=== PATIENT | female | born 1945 | race Caucasian/White ===

== ENCOUNTER 2017-06-12 08:48 | Day surgery (SDC) | payer MEDICARE ==
[2017-06-08 11:14] VITALS: BMI 36.8
[2017-06-12 09:43] LABS: Glucose,Whole Blood 142 mg/dL (75-99)
[2017-06-12 09:44] VITALS: TEMP 97.9
[2017-06-12] MEDS: LACTATED RINGERS 1,000 ML IV SCH ×2 (09:44→09:56)
[2017-06-12] MEDS ORDERED: LIDOCAINE 1% 20 ML VIAL (10MG/ML) FOR IV START INTRADERMA ONE (09:44)
[2017-06-12] MEDS ORDERED: PROPOFOL 10 MG/ML 20 ML VIAL IV ONE (09:55)
[2017-06-12] MEDS ORDERED: LIDOCAINE 1% INJ 10MG/ML (20 ML MDV) ONE (09:55)
--- NOTE | 2017-06-12 10:25 | P.OP ---
Date of Procedure: 06/12/17 Preoperative Diagnosis: History of polyps Postoperative Diagnosis: CEcal polyp Diverticulosis INternal hemorrhoids Procedure(s) Performed: Colonoscopy with hot snare polypectomy Anesthesia: GETA Pathology: other Description of Procedure: The patient was brought to the endoscopy suite and placed in lateral decubitus position. IV sedation was given as per anesthesia team. A timeout was performed to verify correct patient and correct procedure. Perianal examination did not reveal any external hemorrhoids. Digital rectal examination was performed. External skin tags seen. A well-lubricated endoscope was passed per rectally and was gradually advanced beyond the sigmoid colon, splenic flexure, transverse colon, hepatic flexure and cecum. The ileocecal valve was visualized. A moderate size polyp was removed with the help of a hot snare from the cecum. Then diverticulosis noted without any evidence of diverticulitis. Scope was gradually withdrawn inspecting all the mucosal surfaces. Bowel prep was good. No other polyps or masses noted. Retroflexed in the rectum and large internal hemorrhoid was noted which was not bleeding at this time. The scope was gradually withdrawn. Patient tolerated the procedure well and was taken to post anesthesia care unit in stable condition. Recommend repeat colonoscopy in 5 years
[2017-06-12 10:39] VITALS: BP 138/70; PULSE 68; RESP 18
== END 2017-06-12 10:58 | disposition home or self-care (01) ==
LOC: ORWHC2ENDO 08:48
PROVIDERS: ATTEND Surgery
DX: Z12.11 Encounter for screening for malignant neoplasm of colon (principal); K63.5 Polyp of colon; K57.30 Diverticulosis of large intestine without perforation or abscess without bleeding; K64.8 Other hemorrhoids; Z86.010 Personal history of colon polyps; E78.5 Hyperlipidemia, unspecified; E11.9 Type 2 diabetes mellitus without complications; Z79.84 Long term (current) use of oral hypoglycemic drugs; K75.9 Inflammatory liver disease, unspecified; E07.9 Disorder of thyroid, unspecified; Z79.899 Other long term (current) drug therapy; Z88.5 Allergy status to narcotic agent; Z88.0 Allergy status to penicillin
CPT/HCPCS: 88305; 45385; J2001; J2704

== ENCOUNTER → 2017-06-14 | Outpatient (CLI) | payer MEDICARE ==
--- NOTE | 2017-06-18 10:51 | MM ---
Reason for exam: screening (asymptomatic). Last mammogram was performed 3 years and 3 months ago. History: Patient is postmenopausal. Physical Findings: A clinical breast exam by your physician is recommended on an annual basis and results should be correlated with mammographic findings. MG 3D Screening Mammo W/Cad Bilateral CC and MLO view(s) were taken. Prior study comparison: March 11, 2014, bilateral MG screening mammo w CAD. The breast tissue is almost entirely fat. Finding: There are typically benign round, regional calcifications in the anterior position of the left breast. ASSESSMENT: Benign, BI-RAD 2 RECOMMENDATION: Routine screening mammogram of both breasts in 1 year.
== END | disposition home or self-care (01) ==
LOC: RADMAMWWP 08:41
PROVIDERS: ATTEND Family Medicine
DX: Z12.31 Encounter for screening mammogram for malignant neoplasm of breast (principal); Z80.3 Family history of malignant neoplasm of breast
CPT/HCPCS: 77063; G0202

== ENCOUNTER 2018-03-01 17:37 | Emergency (ER) | payer OTHER, MEDICARE ==
[2018-03-01] MEDS ORDERED: SODIUM CHLORIDE 0.9% 1,000 ML IV STA ×2 (18:54)
[2018-03-01 19:23] LABS: Glucose,Whole Blood 163 mg/dL (75-99)
[2018-03-01 19:26] LABS: Basophils # (A) 0.1 k/uL (0-0.2); Basophils % (A) 0 %; Eosinophils # (A) 0.1 k/uL (0-0.7); Eosinophils % (A) 1 %; HCT 39.7 % (34.0-46.0); HGB 13.9 gm/dL (11.4-16.0); Lymphocytes # (A) 1.4 k/uL (1.0-4.8); Lymphocytes % (A) 12 %; MCH 31.1 pg (25.0-35.0); MCV 88.8 fL (80.0-100.0); Mean Platelet Volume 8.2; Monocytes # (A) 0.8 k/uL (0-1.0); Monocytes % (A) 8 %; Neutrophils # (A) 8.6 k/uL (1.3-7.7); Neutrophils % (A) 77 %; Platelet Count 194 k/uL (150-450); RBC 4.47 m/uL (3.80-5.40); RDW 13.6 % (11.5-15.5); WBC 11.2 k/uL (3.8-10.6)
[2018-03-01 19:35] LABS: ALT 43 U/L (9-52); AST 28 U/L (14-36); Albumin 4.1 g/dL (3.5-5.0); Alcohol <10 mg/dL; Alkaline Phosphatase 78 U/L (38-126); Anion Gap 12 mmol/L; Blood Urea Nitrogen 17 mg/dL (7-17); Calcium 9.6 mg/dL (8.4-10.2); Carbon Dioxide 24 mmol/L (22-30); Chloride 104 mmol/L (98-107); Glucose 145 mg/dL (74-99); Potassium 3.9 mmol/L (3.5-5.1); Sodium 140 mmol/L (137-145); Total Bilirubin 1.6 mg/dL (0.2-1.3); Total Protein 6.4 g/dL (6.3-8.2)
[2018-03-01 19:42] LABS: Partial Thromboplastin Time 22.8 sec (22.0-30.0); Prothrombin Time 9.9 sec (9.0-12.0)
[2018-03-01 19:49] LABS: Creatine Kinase 188 U/L (30-135)
[2018-03-01 20:01] LABS: Troponin I <0.012 ng/mL (0.000-0.034)
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
[2018-03-01] MEDS ORDERED: MORPHINE SULFATE 2 MG/ML SYRINGE IVP STA (21:05)
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
--- NOTE | 2018-03-01 21:35 | XR ---
EXAMINATION TYPE: XR hand complete RT DATE OF EXAM: 03/01/2018 COMPARISON: NONE HISTORY: Pain TECHNIQUE: 3 views FINDINGS: There is minor spurring of the IP joints of the fingers. There is moderate spurring at the first carpometacarpal joint. There is no subluxation. I see no fracture. IMPRESSION: Osteoarthritis. No fracture seen.
--- NOTE | 2018-03-01 21:35 | XR ---
EXAMINATION TYPE: XR knee complete LT DATE OF EXAM: 03/01/2018 COMPARISON: NONE HISTORY: Knee pain TECHNIQUE: 3 views FINDINGS: I see no fracture nor dislocation. There is minor spurring of the medial femoral and tibial condyles. There is no sign of joint effusion. IMPRESSION: Minor degenerative changes. No fracture.
[2018-03-01 21:51] VITALS: PULSE 71; TEMP 97.1
[2018-03-01 21:52] VITALS: BP 181/81; RESP 18
[2018-03-02 13:02] LABS: Hemoglobin A1C 6.8 % (4.0-6.0)
== END 2018-03-01 21:52 | disposition home or self-care (01) ==
LOC: EC 17:37
DX: S60.011A Contusion of right thumb without damage to nail, initial encounter (principal); S80.02XA Contusion of left knee, initial encounter; R94.31 Abnormal electrocardiogram [ECG] [EKG]; R07.89 Other chest pain; R10.9 Unspecified abdominal pain; E78.5 Hyperlipidemia, unspecified; E11.9 Type 2 diabetes mellitus without complications; E07.9 Disorder of thyroid, unspecified; Z79.84 Long term (current) use of oral hypoglycemic drugs; Z79.899 Other long term (current) drug therapy; Z88.0 Allergy status to penicillin; Z88.5 Allergy status to narcotic agent; V43.52XA Car driver injured in collision with other type car in traffic accident, initial encounter; Y92.410 Unspecified street and highway as the place of occurrence of the external cause
CPT/HCPCS: 99285; 96374; 96361 ×2; 36415; 93005; 86900; 86901; 80053; 82550; 82553; 84484; 85025; 85610; 85730; 86850; 80320; 83036; 73130; 73562; 72125; 70450; 71260; 74177; J2270; Q9967

== ENCOUNTER → 2018-06-25 | Outpatient (CLI) | payer MEDICARE ==
--- NOTE | 2018-06-25 11:16 | MM ---
Reason for exam: screening (asymptomatic). Last mammogram was performed 1 year ago. History: Patient is postmenopausal. Physical Findings: A clinical breast exam by your physician is recommended on an annual basis and results should be correlated with mammographic findings. MG 3D Screening Mammo W/Cad Bilateral CC and MLO view(s) were taken. Prior study comparison: June 14, 2017, bilateral MG 3d screening mammo w/cad. March 11, 2014, bilateral MG screening mammo w CAD. There are scattered fibroglandular densities. No significant changes when compared with prior studies. ASSESSMENT: Benign, BI-RAD 2 RECOMMENDATION: Routine screening mammogram of both breasts in 1 year.
== END | disposition home or self-care (01) ==
LOC: RADMAMWWP 07:09
PROVIDERS: ATTEND Family Medicine
DX: Z12.31 Encounter for screening mammogram for malignant neoplasm of breast (principal)
CPT/HCPCS: 77063; 77067

== ENCOUNTER → 2019-08-01 | Outpatient (CLI) | payer MEDICARE ==
--- NOTE | 2019-08-05 08:46 | MM ---
Reason for exam: screening (asymptomatic). Last mammogram was performed 1 year and 1 month ago. History: Patient is postmenopausal. Physical Findings: A clinical breast exam by your physician is recommended on an annual basis and results should be correlated with mammographic findings. MG 3D Screening Mammo W/Cad Bilateral CC and MLO view(s) were taken. Prior study comparison: June 25, 2018, bilateral MG 3d screening mammo w/cad. June 14, 2017, bilateral MG 3d screening mammo w/cad. There are scattered fibroglandular densities. No significant changes when compared with prior studies. ASSESSMENT: Negative, BI-RAD 1 RECOMMENDATION: Routine screening mammogram of both breasts in 1 year.
== END | disposition home or self-care (01) ==
LOC: RADMAMWWP 09:15
PROVIDERS: ATTEND Family Medicine
DX: Z12.31 Encounter for screening mammogram for malignant neoplasm of breast (principal)
CPT/HCPCS: 77063; 77067

== ENCOUNTER 2021-08-04 12:03 | Inpatient (IN) | payer MEDICARE ==
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
[2021-08-04] MEDS ORDERED: DEXAMETHASONE SOD PHOSPHATE 10 MG/ML 1 ML VIAL IVP STA (13:53)
--- NOTE | 2021-08-04 13:55 | XR ---
EXAMINATION TYPE: XR chest 1V portable DATE OF EXAM: 08/04/2021 COMPARISON: CT chest March 01, 2018 HISTORY: Dyspnea. TECHNIQUE: Single AP portable frontal upright view of the chest is obtained. FINDINGS: There are new bilateral multifocal opacities. Somewhat low lung volumes. The cardiac silh ouette size is likely within normal limits. Silhouetting left heart border noted. The osseous struc tures are intact. IMPRESSION: New bilateral multifocal opacities consistent with covid-19 infection in the current med ica environment. Correlate clinically.
[2021-08-04 14:05] LABS: Basophils # (A) 0.2 k/uL (0-0.2); Basophils % (A) 1 %; Eosinophils % (A) 0 %; HCT 41.8 % (34.0-46.0); HGB 13.9 gm/dL (11.4-16.0); Lymphocytes # (A) 0.5 k/uL (1.0-4.8); Lymphocytes % (A) 3 %; MCH 30.6 pg (25.0-35.0); MCHC 33.3 g/dL (31.0-37.0); MCV 91.8 fL (80.0-100.0); Mean Platelet Volume 9.1; Monocytes # (A) 0.6 k/uL (0-1.0); Monocytes % (A) 3 %; Neutrophils # (A) 16.4 k/uL (1.3-7.7); Neutrophils % (A) 90 %; Platelet Count 150 k/uL (150-450); RBC 4.56 m/uL (3.80-5.40); RDW 13.3 % (11.5-15.5); WBC 18.2 k/uL (3.8-10.6)
[2021-08-04 14:22] LABS: Albumin 3.2 g/dL (3.5-5.0); Calcium 8.6 mg/dL (8.4-10.2); Magnesium 1.8 mg/dL (1.6-2.3); Potassium 3.9 mmol/L (3.5-5.1); Total Bilirubin 0.9 mg/dL (0.2-1.3); Total Protein 6.1 g/dL (6.3-8.2)
[2021-08-04 14:25] LABS: INR 0.9 (<1.2); Partial Thromboplastin Time 22.1 sec (22.0-30.0); Prothrombin Time 9.9 sec (9.0-12.0)
[2021-08-04 14:36] LABS: C Reactive Protein 16.3 mg/dL (<1.0)
[2021-08-04] MEDS ORDERED: SODIUM CHLORIDE 0.9% 1,000 ML IV ONE (14:40)
[2021-08-04] MEDS ORDERED: INSULIN REGULAR 100 UNIT/ML VIAL (IM/SQ) SQ STA (14:41)
[2021-08-04 18:39] LABS: Glucose,Whole Blood 227 mg/dL (75-99)
[2021-08-04] MEDS: SODIUM CHLORIDE 0.9% 1,000 ML IV SCH (20:09)
[2021-08-04 20:15] LABS: Glucose,Whole Blood 273 mg/dL (75-99)
[2021-08-04] MEDS: INSULIN ASPART (NovoLOG) 100 UNIT/ML VIAL SQ SCH (20:17)
[2021-08-04 21:00] LABS: Appearance,Urine Clear (Clear); Bilirubin,Urine Negative (Negative); Blood,Urine Moderate (Negative); Color,Urine Yellow; Glucose,Urine (UA) Trace (Negative); Hyaline Casts,Urine 1 /lpf (0-2); Ketones,Urine Negative (Negative); Leukocyte Esterase,Urine Negative (Negative); Mucus,Urine Rare /hpf; Nitrite,Urine Negative (Negative); Protein,Urine 2+ (Negative); RBC,Urine 1 /hpf (0-5); Specific Gravity,Urine 1.019 (1.001-1.035); Squamous Epithelial Cell,Urine <1 /hpf (0-4); Urobilinogen,Urine <2.0 mg/dL (<2.0); WBC,Urine 1 /hpf (0-5)
[2021-08-05 01:16] LABS: Glucose,Whole Blood 246 mg/dL (75-99)
[2021-08-05] MEDS: INSULIN ASPART (NovoLOG) 100 UNIT/ML VIAL SQ SCH ×3 (01:19→15:33)
[2021-08-05] MEDS: SODIUM CHLORIDE 0.9% 1,000 ML IV SCH ×2 (01:20→15:34)
[2021-08-05 05:02] LABS: Basophils # (A) 0.2 k/uL (0-0.2); Basophils % (A) 1 %; Eosinophils % (A) 0 %; HCT 40.6 % (34.0-46.0); HGB 13.7 gm/dL (11.4-16.0); Lymphocytes # (A) 0.6 k/uL (1.0-4.8); Lymphocytes % (A) 4 %; MCH 30.8 pg (25.0-35.0); MCHC 33.7 g/dL (31.0-37.0); MCV 91.4 fL (80.0-100.0); Monocytes # (A) 0.5 k/uL (0-1.0); Monocytes % (A) 3 %; Neutrophils # (A) 15.2 k/uL (1.3-7.7); Neutrophils % (A) 89 %; Platelet Count 133 k/uL (150-450); RBC 4.44 m/uL (3.80-5.40); RDW 13.2 % (11.5-15.5)
[2021-08-05 05:21] LABS: ALT 74 U/L (4-34); AST 122 U/L (14-36); African American GFR (CKD) >90 (>60 ml/min/1.73 sqM); Albumin 2.9 g/dL (3.5-5.0); Alkaline Phosphatase 83 U/L (38-126); Anion Gap 9 mmol/L; Blood Urea Nitrogen 18 mg/dL (7-17); Calcium 8.3 mg/dL (8.4-10.2); Carbon Dioxide 24 mmol/L (22-30); Chloride 100 mmol/L (98-107); Glucose 222 mg/dL (74-99); Non-African American GFR(CKD) 90 (>60 ml/min/1.73 sqM); Sodium 133 mmol/L (137-145); Total Bilirubin 0.8 mg/dL (0.2-1.3); Total Protein 5.7 g/dL (6.3-8.2)
--- NOTE | 2021-08-05 08:17 | XR ---
EXAMINATION TYPE: XR chest 1V DATE OF EXAM: 08/05/2021 COMPARISON: Chest x-ray 08/04/2021 HISTORY: Covid pneumonia TECHNIQUE: Single frontal view of the chest is obtained. FINDINGS: There is elevation of right hemidiaphragm. Cardiac mediastinal silhouette is likely stable . Bilateral airspace disease is noted. No evident pneumothorax or pleural effusion. There is thoracic spondylosis. There are overlying artifacts. IMPRESSION: Correlate for pneumonia
[2021-08-05] MEDS: DEXAMETHASONE SOD PHOSPHATE 10 MG/ML 1 ML VIAL IVP SCH (08:20)
[2021-08-05] MEDS: ENOXAPARIN 40 MG/0.4 ML SYRINGE SQ SCH (08:20)
[2021-08-05] MEDS: LEVOTHYROXINE IVP 100 MCG/5 ML VIAL IV SCH (08:20)
[2021-08-05 08:42] LABS: Glucose,Whole Blood 166 mg/dL (75-99)
[2021-08-05] MEDS: ASCORBIC ACID 500 MG TAB PO SCH (08:52)
[2021-08-05] MEDS: CHOLECALCIFEROL 125 MCG (5000 IU) TABLET PO SCH (08:52)
[2021-08-05] MEDS: ZINC SULFATE 220 MG CAP PO SCH (08:52)
[2021-08-05 11:58] LABS: Glucose,Whole Blood 146 mg/dL (75-99)
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
[2021-08-05 13:21] LABS: C Reactive Protein 15.9 mg/dL (<1.0)
--- NOTE | 2021-08-05 14:05 | CDI ---
Documentation Clarification Form Date: 08/05/2021 01:40:28 PM From: Yadi Thomas RN CCDS Admit Date: 08/04/2021 03:17:00 PM Patient Name: Malinda Patel Visit Number: [id number] Discharge Date: ATTENTION: The Clinical Documentation Specialists (CDI) and [facility] Coding Staff appreciate your assistance in clarifying documentation. Please respond to the clarification below the line at the bottom and electronically sign. The CDI & [facility] Coding staff will review the response and follow-up if needed. Please note: Queries are made part of the Legal Health Record. If you have any questions, please contact the author of this message via ITS. Dr. Jorge Celis Hypoxia is document 08/05, H&P. Is there an additional diagnosis that is clinically appropriate for this patient? History/Risk Factors: 76-year-old female presents to the ED for the cough, congestion, dyspnea, and fatigue for several weeks. Medical History: DM, HLD and Thyroid disorder. H&P, 08/05. Clinical Indicators: Vital signs: 08/04 13:27 B/P 113/64, HR 82, RR 22, SpO2 66% ra Pulse oximetry: 08/04 13:39 RR 32 SpO2 86% 15L Non-rebreather ; 08/04 20:00 RR 32; SpO2 90% 100% BiPAP Lung/Breathing assessment: H&P 08/05 Breath sounds coarse bilaterally with questionable rhonchi at the bases. Treatment: 08/05 to current Decadron 6mg IVP Daily. 08/04 6L nasal cannula; 08/04 15L Non-rebreather; 08/04 to current 100% BiPAP. Is there an additional diagnosis that is clinically appropriate for this patient? [X ] Acute Hypoxic Respiratory Failure (pO2 <60 mm Hg or SpO2 <91% on room air) [ ] Other Diagnosis, please specify [ ] Unable to determine (Template Last Revised: November 2020) MTDD
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
[2021-08-05] MEDS: BARICITINIB 2 MG TABLET PO SCH (15:24)
[2021-08-05 17:52] LABS: Glucose,Whole Blood 286 mg/dL (75-99)
[2021-08-05] MEDS ORDERED: INSULIN REGULAR BOLUS (FROM DRIP BAG) IV PRN (18:08)
[2021-08-05] MEDS ORDERED: INSULIN REGULAR 100 UNIT in SODIUM CHLORIDE 0.9% 100 ML IV SCH (18:30)
[2021-08-05 19:28] LABS: Glucose,Whole Blood 302 mg/dL (75-99)
[2021-08-05 19:55] LABS: Allen Test Performed? Yes
[2021-08-05 19:56] LABS: ABG HCO3 25 mmol/L (21-25); ABG Oxygen Saturation 84.3 % (94-97); ABG PCO2 31 mmHg (35-45); ABG PH 7.51 (7.35-7.45); ABG TCO2 26 mmol/L (19-24)
[2021-08-05 19:57] LABS: ABG PO2 45 mmHg (83-108)
[2021-08-05] MEDS ORDERED: propofoL 100 ML IV ONE (20:00)
--- NOTE | 2021-08-05 20:55 | XR ---
EXAMINATION TYPE: XR chest 1V portable DATE OF EXAM: 08/05/2021 COMPARISON: Today HISTORY: Short of breath. Tube placement. TECHNIQUE: Single view FINDINGS: Endotracheal tube with 8 mm from the kay. There is pulmonary interstitial and airspace e nelli. There are chest leads. There is nasogastric tube in the stomach. IMPRESSION: Endotracheal tube is low. There is pulmonary edema slightly worse than exam this morning.
[2021-08-05] MEDS ORDERED: INSULIN ASPART (NovoLOG) 100 UNIT/ML VIAL SQ SCH (21:00)
[2021-08-05] MEDS: CISATRACURIUM 200 MG in SODIUM CHLORIDE 0.9% 180 ML IV SCH (21:01)
[2021-08-05] MEDS ORDERED: CISATRACURIUM 2 MG/ML 5 ML VIAL IV ONE ×2 (21:07→21:21)
[2021-08-05 21:16] LABS: Glucose,Whole Blood 149 mg/dL (75-99)
[2021-08-05] MEDS: CHLORHEXIDINE GLUCONATE 15 ML CUP MUCOUS MEM SCH (21:44)
[2021-08-05 21:49] LABS: ABG Base Excess 1.5 mmol/L; ABG HCO3 26 mmol/L (21-25); ABG Oxygen Saturation 89.7 % (94-97); ABG PCO2 40 mmHg (35-45); ABG PH 7.42 (7.35-7.45); ABG TCO2 27 mmol/L (19-24); Allen Test Performed? Yes
[2021-08-05 21:51] LABS: ABG PO2 58 mmHg (83-108)
[2021-08-05 21:58] LABS: Glucose,Whole Blood 129 mg/dL (75-99)
[2021-08-05 22:41] LABS: Glucose,Whole Blood 141 mg/dL (75-99)
[2021-08-05 23:06] LABS: Glucose,Whole Blood 143 mg/dL (75-99)
[2021-08-05] MEDS: ALBUTEROL HFA INHALER INHALATION SCH (23:27)
[2021-08-06] MEDS ORDERED: IPRATROPIUM-ALBUTEROL 3 ML NEB INHALATION SCH
[2021-08-06 00:01] LABS: Glucose,Whole Blood 153 mg/dL (75-99)
[2021-08-06 00:56] LABS: Glucose,Whole Blood 171 mg/dL (75-99)
[2021-08-06 01:59] LABS: Glucose,Whole Blood 155 mg/dL (75-99)
[2021-08-06 03:04] LABS: Glucose,Whole Blood 170 mg/dL (75-99)
[2021-08-06] MEDS: ALBUTEROL HFA INHALER INHALATION SCH ×6 (03:29→23:31)
[2021-08-06] MEDS ORDERED: ARTIFICIAL TEARS-HYPROMELLOSE DROPS 15 ML BTL BOTH EYES PRN (03:53)
[2021-08-06 04:02] LABS: Glucose,Whole Blood 163 mg/dL (75-99)
[2021-08-06] MEDS: SODIUM CHLORIDE 0.9% 1,000 ML IV SCH ×2 (04:13→16:26)
[2021-08-06 05:03] LABS: Glucose,Whole Blood 164 mg/dL (75-99)
[2021-08-06 05:57] LABS: Basophils # (A) 0.1 k/uL (0-0.2); Basophils % (A) 1 %; Eosinophils % (A) 0 %; HCT 35.1 % (34.0-46.0); HGB 12.3 gm/dL (11.4-16.0); Lymphocytes # (A) 0.5 k/uL (1.0-4.8); Lymphocytes % (A) 3 %; MCH 31.7 pg (25.0-35.0); MCV 90.6 fL (80.0-100.0); Mean Platelet Volume 9.1; Monocytes # (A) 0.5 k/uL (0-1.0); Monocytes % (A) 3 %; Neutrophils % (A) 91 %; Platelet Count 113 k/uL (150-450); RBC 3.88 m/uL (3.80-5.40); RDW 13.8 % (11.5-15.5); WBC 15.4 k/uL (3.8-10.6)
[2021-08-06 06:01] LABS: Glucose,Whole Blood 149 mg/dL (75-99)
[2021-08-06 06:24] LABS: Calcium 7.6 mg/dL (8.4-10.2); Potassium 4.1 mmol/L (3.5-5.1)
[2021-08-06 06:28] LABS: ABG Base Excess 0.6 mmol/L; ABG HCO3 25 mmol/L (21-25); ABG Oxygen Saturation 96.9 % (94-97); ABG PCO2 40 mmHg (35-45); ABG PH 7.41 (7.35-7.45); ABG PO2 78 mmHg (83-108); Allen Test Performed? Yes
[2021-08-06 07:06] LABS: Glucose,Whole Blood 140 mg/dL (75-99)
--- NOTE | 2021-08-06 07:49 | XR ---
EXAMINATION TYPE: XR chest 1V portable DATE OF EXAM: 08/06/2021 CLINICAL HISTORY: Difficulty breathing progress study. TECHNIQUE: Single AP portable semiupright view of the chest is obtained. COMPARISON: Chest x-ray from one day earlier and older studies FINDINGS: Stable endotracheal and orogastric tubes. Improved inspiration on current study. There are persistent bilateral multifocal and confluent reticu lonodular opacities with improved aeration in the right midlung. Improved aeration in the lingula as there is now visualized left heart border. The cardiac silhouette size is within normal limits. The o sseous structures are intact. IMPRESSION: Bilateral multifocal and confluent opacities consistent with covid-19 infection redemons trated. Improved aeration in the lingula and right mid lung suggests improving covid-19 infiltrates.
[2021-08-06 07:53] LABS: Glucose,Whole Blood 135 mg/dL (75-99)
[2021-08-06] MEDS: ASCORBIC ACID 500 MG TAB PO SCH (08:26)
[2021-08-06] MEDS: CHOLECALCIFEROL 125 MCG (5000 IU) TABLET PO SCH (08:26)
[2021-08-06] MEDS: ENOXAPARIN 40 MG/0.4 ML SYRINGE SQ SCH (08:26)
[2021-08-06] MEDS: LEVOTHYROXINE IVP 100 MCG/5 ML VIAL IV SCH (08:26)
[2021-08-06] MEDS: CHLORHEXIDINE GLUCONATE 15 ML CUP MUCOUS MEM SCH ×2 (08:26→19:55)
[2021-08-06] MEDS: ZINC SULFATE 220 MG CAP PO SCH (08:26)
[2021-08-06] MEDS: BARICITINIB 2 MG TABLET PO SCH (08:27)
[2021-08-06] MEDS: DEXAMETHASONE SOD PHOSPHATE 10 MG/ML 1 ML VIAL IVP SCH (08:27)
[2021-08-06] MEDS ORDERED: SODIUM CHLORIDE 0.9% 1,000 ML IV ONE (09:00)
[2021-08-06] MEDS ORDERED: INSULIN ASPART (NovoLOG) 100 UNIT/ML VIAL SQ SCH (10:00)
--- NOTE | 2021-08-06 10:06 | P.PN ---
Subjective Progress Note Date: 08/06/21 Principal diagnosis: Shortness of breath This is a 76-year-old female seen in the emergency room, on August 04. She came in with complaints of shortness of breath and difficulty breathing. In addition, she had cough, chest congestion, generalized weakness, lightheadedness, his been sick for about a month or so. She apparently tested positive for coronavirus on July 30. Currently, she is on BiPAP, with settings of 15/5 and 100%. She's getting saline at 80 mL an hour. She has a history of hyperlipidemia, diabetes, hypertension, and hypothyroidism. White count 17, hemoglobin 13.7, hematocrit 40.6, and platelet count 133,000. D-dimer was 0.97. Sodium 133, potassium 4, chlorides 100, CO2 24, anion gap 9, BUN 18, creatinine 0.6. LDH was 1477 and C-reactive protein was 15.9. Chest x-ray showed elevation of the right diaphragm, and diffuse bilateral airspace disease consistent with coronavirus pneumonia. On today's evaluation on 08/06/2021 patient is seen in the intensive care unit. Patient was admitted on 08/04/2021 with symptoms of COVID-19 ammonia that have been present for about a month's, patient had a positive home test on 07/30/2021. Patient's hypoxia and dyspnea has significantly progressed, and intubated on 08/05/2021. While she is sedated and intubated on assist control mode of ventilation with a rate of 26, tidal volume is 400, FiO2 of 90% and PEEP of 15, this morning's blood gas shows pO2 of 78, pCO2 of 40, and pH of 7.41. This was done on FiO2 of 100% and FiO2 had since been dropped down to 90%. Patient is maintaining O2 saturations between 96-98%. Peak airway pressure is 34, plateau pressure is 31. Currently on 0.9 at 80 ML per hour, Diprivan is at 30 mics per kilo per minute, Nimbex is at 2 mics per kilo per minute. Today's chest x-ray shows bilateral multifocal and confluent opacities consistent with COVID-19 pneumonia. Today's labs have been reviewed, white blood cell count is improving and is down to 15.4, hemoglobin is 12.3, serum sodium is improved and is up to 135 compared to 129 on admission, potassium is 4.1, BUN is 21 creatinine is 0.78 yesterday's LFTs have been reviewed and AST was 122, ALT is 74, applying phosphatases 83, LDH was 1477, and CRP was 15.9 proBNP was within normal limits at 181 bronchial [place] level was 0.48, borderline, sputum cultures have been sent and showed few PMNs, many gram-negative diplococci. Final culture is pending. Blood culturef show no growth thus far. No dyn amically patient is slightly bradycardic in the sinus mechanism with a rate of 51, blood pressure is 102/57, she was slightly hypotensive she was given a liter bolus this morning, she is getting another liter bolus infusing right now for low urine output. Patient is currently receiving Decadron 6 mg daily, she is on Baricitinib, Lovenox 40 mg daily, and COVID-19 vitamins. Last d-dimer from yesterday was 0.97. Objective - Vital Signs Vital signs: Vital Signs Temp 97.4 F L 08/06/21 08:00 Pulse 53 L 08/06/21 09:00 Resp 26 H 08/06/21 09:00 BP 85/51 08/06/21 09:00 Pulse Ox 93 L 08/06/21 08:00 Intake & Output 08/05/21 08/06/21 08/06/21 18:59 06:59 18:59 Intake Total 1210 1105.880 389.074 Output Total 340 400 80 Balance 870 705.880 309.074 Weight 92.4 kg Intake: IV 960 960 240 Sodium Chloride 0.9% 1, 960 960 240 000 ml @ 80 mls/hr IV . [id number] [facility] Rx#:[id number] Intake, IV Titration 145.880 49.074 Amount Insulin Regular 100 unit 48.262 2.828 In Sodium Chloride 0.9% 100 ml @ Per Protocol IV .Q0M [facility] Rx#:[id number] propofoL 1,000 mg In 97.618 46.246 Empty Bag 1 bag @ Titrate IV .Q0M [facility] Rx#: [id number] Tube Feeding 20 Blood Product 250 Other 80 Output: Urine 340 400 80 Other: Voiding Method Indwelling Catheter Indwelling Catheter Indwelling Catheter - Exam GENERAL EXAM: Intubated, sedated, and paralyzed, 76-year-old female on assist- control mode of ventilation with FiO2 of 90% and PEEP of 15 comfortable in no apparent distress. HEAD: Normocephalic/atraumatic. EYES: Normal reaction of pupils, equal size. Conjunctiva pink, sclera white. NOSE: Clear with pink turbinates. THROAT: No erythema or exudates. NECK: No masses, no JVD, no thyroid enlargement, no adenopathy. CHEST: No chest wall deformity. Symmetrical expansion. LUNGS: Equal air entry with no crackles, wheeze, rhonchi or dullness. CVS: Regular rate and rhythm, normal S1 and S2, no gallops, no murmurs, no rubs ABDOMEN: Soft, nontender. No hepatosplenomegaly, normal bowel sounds, no guarding or rigidity. EXTREMITIES: No clubbing, no edema, no cyanosis, 2+ pulses and upper and lower extremities. MUSCULOSKELETAL: Muscle strength and tone normal. SPINE: No scoliosis or deformity SKIN: No rashes CENTRAL NERVOUS SYSTEM: Sedated, and paralyzed No focal deficits, tone is normal in all 4 extremities. - Labs CBC & Chem 7: 08/06/21 05:46 08/06/21 05:46 Labs: Abnormal Lab Results - Last 24 Hours (Table) 08/05/21 08/05/21 08/05/21 Range/Units 11:55 11:55 11:57 WBC (3.8-10.6) k/uL Plt Count (150-450) k/uL Neutrophils # (1.3-7.7) k/uL Lymphocytes # (1.0-4.8) k/uL D-Dimer 0.97 H (<0.60) mg/L FEU ABG pH (7.35-7.45) ABG pCO2 (35-45) mmHg ABG pO2 (83-108) mmHg ABG HCO3 (21-25) mmol/L ABG Total CO2 (19-24) mmol/L ABG O2 Saturation (94-97) % Sodium (137-145) mmol/L BUN (7-17) mg/dL Glucose (74-99) mg/dL POC Glucose (mg/dL) 146 H (75-99) mg/dL Calcium (8.4-10.2) mg/dL Lactate Dehydrogenase 1477 H (313-618) U/L C-Reactive Protein 15.9 H (<1.0) mg/dL 08/05/21 08/05/21 08/05/21 Range/Units 17:50 19:27 19:49 WBC (3.8-10.6) k/uL Plt Count (150-450) k/uL Neutrophils # (1.3-7.7) k/uL Lymphocytes # (1.0-4.8) k/uL D-Dimer (<0.60) mg/L FEU ABG pH 7.51 H (7.35-7.45) ABG pCO2 31 L (35-45) mmHg ABG pO2 45 L* (83-108) mmHg ABG HCO3 (21-25) mmol/L ABG Total CO2 26 H (19-24) mmol/L ABG O2 Saturation 84.3 L (94-97) % Sodium (137-145) mmol/L BUN (7-17) mg/dL Glucose (74-99) mg/dL POC Glucose (mg/dL) 286 H 302 H (75-99) mg/dL Calcium (8.4-10.2) mg/dL Lactate Dehydrogenase (313-618) U/L C-Reactive Protein (<1.0) mg/dL 08/05/21 08/05/21 08/05/21 Range/Units 21:15 21:43 21:56 WBC (3.8-10.6) k/uL Plt Count (150-450) k/uL Neutrophils # (1.3-7.7) k/uL Lymphocytes # (1.0-4.8) k/uL D-Dimer (<0.60) mg/L FEU ABG pH (7.35-7.45) ABG pCO2 (35-45) mmHg ABG pO2 58 L* (83-108) mmHg ABG HCO3 26 H (21-25) mmol/L ABG Total CO2 27 H (19-24) mmol/L ABG O2 Saturation 89.7 L (94-97) % Sodium (137-145) mmol/L BUN (7-17) mg/dL Glucose (74-99) mg/dL POC Glucose (mg/dL) 149 H 129 H (75-99) mg/dL Calcium (8.4-10.2) mg/dL Lactate Dehydrogenase (313-618) U/L C-Reactive Protein (<1.0) mg/dL 08/05/21 08/05/21 08/05/21 Range/Units 22:40 23:05 23:59 WBC (3.8-10.6) k/uL Plt Count (150-450) k/uL Neutrophils # (1.3-7.7) k/uL Lymphocytes # (1.0-4.8) k/uL D-Dimer (<0.60) mg/L FEU ABG pH (7.35-7.45) ABG pCO2 (35-45) mmHg ABG pO2 (83-108) mmHg ABG HCO3 (21-25) mmol/L ABG Total CO2 (19-24) mmol/L ABG O2 Saturation (94-97) % Sodium (137-145) mmol/L BUN (7-17) mg/dL Glucose (74-99) mg/dL POC Glucose (mg/dL) 141 H 143 H 153 H (75-99) mg/dL Calcium (8.4-10.2) mg/dL Lactate Dehydrogenase (313-618) U/L C-Reactive Protein (<1.0) mg/dL 08/06/21 08/06/21 08/06/21 Range/Units 00:55 01:58 03:02 WBC (3.8-10.6) k/uL Plt Count (150-450) k/uL Neutrophils # (1.3-7.7) k/uL Lymphocytes # (1.0-4.8) k/uL D-Dimer (<0.60) mg/L FEU ABG pH (7.35-7.45) ABG pCO2 (35-45) mmHg ABG pO2 (83-108) mmHg ABG HCO3 (21-25) mmol/L ABG Total CO2 (19-24) mmol/L ABG O2 Saturation (94-97) % Sodium (137-145) mmol/L BUN (7-17) mg/dL Glucose (74-99) mg/dL POC Glucose (mg/dL) 171 H 155 H 170 H (75-99) mg/dL Calcium (8.4-10.2) mg/dL Lactate Dehydrogenase (313-618) U/L C-Reactive Protein (<1.0) mg/dL 08/06/21 08/06/21 08/06/21 Range/Units 04:01 05:01 05:46 WBC 15.4 H (3.8-10.6) k/uL Plt Count 113 L (150-450) k/uL Neutrophils # 14.0 H (1.3-7.7) k/uL Lymphocytes # 0.5 L (1.0-4.8) k/uL D-Dimer (<0.60) mg/L FEU ABG pH (7.35-7.45) ABG pCO2 (35-45) mmHg ABG pO2 (83-108) mmHg ABG HCO3 (21-25) mmol/L ABG Total CO2 (19-24) mmol/L ABG O2 Saturation (94-97) % Sodium (137-145) mmol/L BUN (7-17) mg/dL Glucose (74-99) mg/dL POC Glucose (mg/dL) 163 H 164 H (75-99) mg/dL Calcium (8.4-10.2) mg/dL Lactate Dehydrogenase (313-618) U/L C-Reactive Protein (<1.0) mg/dL 08/06/21 08/06/21 08/06/21 Range/Units 05:46 06:00 06:06 WBC (3.8-10.6) k/uL Plt Count (150-450) k/uL Neutrophils # (1.3-7.7) k/uL Lymphocytes # (1.0-4.8) k/uL D-Dimer (<0.60) mg/L FEU ABG pH (7.35-7.45) ABG pCO2 (35-45) mmHg ABG pO2 78 L (83-108) mmHg ABG HCO3 (21-25) mmol/L ABG Total CO2 (19-24) mmol/L ABG O2 Saturation (94-97) % Sodium 135 L (137-145) mmol/L BUN 21 H (7-17) mg/dL Glucose 150 H (74-99) mg/dL POC Glucose (mg/dL) 149 H (75-99) mg/dL Calcium 7.6 L (8.4-10.2) mg/dL Lactate Dehydrogenase (313-618) U/L C-Reactive Protein (<1.0) mg/dL 11/27/21 11/27/21 Range/Units 07:05 07:51 WBC (3.8-10.6) k/uL Plt Count (150-450) k/uL Neutrophils # (1.3-7.7) k/uL Lymphocytes # (1.0-4.8) k/uL D-Dimer (<0.60) mg/L FEU ABG pH (7.35-7.45) ABG pCO2 (35-45) mmHg ABG pO2 (83-108) mmHg ABG HCO3 (21-25) mmol/L ABG Total CO2 (19-24) mmol/L ABG O2 Saturation (94-97) % Sodium (137-145) mmol/L BUN (7-17) mg/dL Glucose (74-99) mg/dL POC Glucose (mg/dL) 140 H 135 H (75-99) mg/dL Calcium (8.4-10.2) mg/dL Lactate Dehydrogenase (313-618) U/L C-Reactive Protein (<1.0) mg/dL Microbiology - Last 24 Hours (Table) 08/05/21 21:15 Gram Stain - Preliminary Sputum Sputum Culture - Preliminary 08/04/21 13:40 Blood Culture - Preliminary Blood No Growth after 24 hours 08/04/21 13:50 Blood Culture - Preliminary Blood No Growth after 24 hours Assessment and Plan Plan: Assessment: #1. Acute hypoxic respiratory failure related to acute COVID-19 pneumonia, and patient was not a candidate for Remdesivir due to length of illness, reports symptoms for one month prior to presentation, positive CLOtest on 07/30/2021. Admitted to the hospital on 08/04/2021, intubated on 08/05/2021. Patient not vaccinated against COVID-19 #2. Elevated inflammatory markers related to acute COVID-19 pneumonia #3. Elevated d-dimer, related to viral pneumonia, we'll obtain lower extremity Dopplers and will consider CT angiogram of the chest #4. Hyponatremia, possibly hypovolemic, improving with IV hydration #5. Gram-negative diplococci and sputum culture, awaiting final culture #6. Hypertension #7. Pedis mellitus #8. Hyperlipidemia #9. Hypothyroidism Plan: Continue medical treatment Continue current vent settings, wean FiO2 to maintain O2 saturations above 92% Continue sedation and Nimbex We'll give the patient 2 L fluid bolus for low urine output Tube feedings will be started Continue Decadron, Baricitinib Continue current dose of Lovenox Obtain CBC, CMP, LDH, CRP, d-dimer tomorrow Obtain a blood gas of follow-up chest x-ray tomorrow Obtain lower extremity Dopplers to rule out possibility of DVT We will consider CT angiogram of the chest isn't is stable for travel to the CT department Continue following patient's clinical course in intensive care unit I performed a history & physical examination of the patient and discussed their management with my nurse practitioner, Kellie Patel. I reviewed the nurse practitioner's note and agree with the documented findings and plan of care. Lung sounds are positive for crackles at the bases throughout the lung harrell. The findings and the impression was discussed with the patient. I attest to the documentation by the nurse practitioner. Time with Patient: Greater than 30
[2021-08-06] MEDS: CISATRACURIUM 200 MG in SODIUM CHLORIDE 0.9% 180 ML IV SCH (10:28)
--- NOTE | 2021-08-06 10:38 | P.PN ---
Subjective This is a 76-year-old white female who not been seen in our office for over a year. He came emergency room with cough congestion dyspnea and weakness and fatigue for several weeks. She tested positive for cover a week ago with a home test per the emergency room physician. Per the ER physician she not been vaccinated for current receive any [place] and treatment. She indicates shortness of breath had gotten worse. She denied any fevers severe headache chest pain or pressure. She was seen emergency room. She was on a BiPAP at this time in the intensive care unit.. Her conversation is limited by this. 08/06/2021: Patient is now intubated and sedated/paralyzed. This was done approximately 8 PM last night. She has COVID-19 pneumonia. She remains afebrile. Pulse is somewhat bradycardic over the past 18 hours. Respiratory rate is mechanically ventilated. Blood pressure is stable to this time. Labs show leukocytosis with a WBC count of 15.4 hemoglobin was 12 3 platelets are 113. There is an absolute neutrophilia at 14. Blood gases show pH 7.41 with a P CO2 of 40 and a PO2 of 78. Chemistries essentially normal slightly elevated BUN 21 creatinine 0.78. Glucoses are better controlled. She was placed on insulin drip yesterday. Cultures no growth after 24 hours and the blood, sputum culture pending. Chest x-ray shows bilateral multifocal confluent opacities consistent COVID-19 infection. Improved aeration suggesting improving. He has orders for Ventolin HFA inhaler, remains on vitamin C vitamin D, along with the dexamethasone. She is receiving Baricitnib all for Covid. She is paralyzed and Nimbex and remains on propofol for sedation. Staff indicated tube feeds may start soon. Objective - Vital Signs Vital signs: Vital Signs Temp 97.4 F L 08/06/21 08:00 Pulse 53 L 08/06/21 09:00 Resp 26 H 08/06/21 09:00 BP 85/51 08/06/21 09:00 Pulse Ox 93 L 08/06/21 08:00 Intake & Output 08/05/21 08/06/21 08/06/21 18:59 06:59 18:59 Intake Total 1210 1105.880 389.074 Output Total 340 400 80 Balance 870 705.880 309.074 Weight 92.4 kg Intake: IV 960 960 240 Sodium Chloride 0.9% 1, 960 960 240 000 ml @ 80 mls/hr IV . [id number] [facility] Rx#:[id number] Intake, IV Titration 145.880 49.074 Amount Insulin Regular 100 unit 48.262 2.828 In Sodium Chloride 0.9% 100 ml @ Per Protocol IV .Q0M [facility] Rx#:[id number] propofoL 1,000 mg In 97.618 46.246 Empty Bag 1 bag @ Titrate IV .Q0M [facility] Rx#: [id number] Tube Feeding 20 Blood Product 250 Other 80 Output: Urine 340 400 80 Other: Voiding Method Indwelling Catheter Indwelling Catheter Indwelling Catheter - Exam GENERAL: elderly female currently intubated and sedated. NECK: supple without lymphadenopathy or JVD, no thyromegaly LUNGS: Breath sounds coarse bilaterally and mechanically ventilated HEART: Regular rate and rhythm without murmurs, rubs or gallops.S1S2 Normal ABDOMEN: Soft, nontender, normoactive bowel sounds. No guarding, no rebound. No masses appreciated. EXTREMITIES:no pitting or edema. No clubbing or cyanosis. NEUROLOGICAL: Sedated SKIN: Warm, Dry, normal turgor, no rashes or lesions noted. - Labs CBC & Chem 7: 08/06/21 05:46 08/06/21 05:46 Labs: Abnormal Lab Results - Last 24 Hours (Table) 08/05/21 08/05/21 08/05/21 Range/Units 11:55 11:55 11:57 WBC (3.8-10.6) k/uL Plt Count (150-450) k/uL Neutrophils # (1.3-7.7) k/uL Lymphocytes # (1.0-4.8) k/uL D-Dimer 0.97 H (<0.60) mg/L FEU ABG pH (7.35-7.45) ABG pCO2 (35-45) mmHg ABG pO2 (83-108) mmHg ABG HCO3 (21-25) mmol/L ABG Total CO2 (19-24) mmol/L ABG O2 Saturation (94-97) % Sodium (137-145) mmol/L BUN (7-17) mg/dL Glucose (74-99) mg/dL POC Glucose (mg/dL) 146 H (75-99) mg/dL Calcium (8.4-10.2) mg/dL Lactate Dehydrogenase 1477 H (313-618) U/L C-Reactive Protein 15.9 H (<1.0) mg/dL 08/05/21 08/05/21 08/05/21 Range/Units 17:50 19:27 19:49 WBC (3.8-10.6) k/uL Plt Count (150-450) k/uL Neutrophils # (1.3-7.7) k/uL Lymphocytes # (1.0-4.8) k/uL D-Dimer (<0.60) mg/L FEU ABG pH 7.51 H (7.35-7.45) ABG pCO2 31 L (35-45) mmHg ABG pO2 45 L* (83-108) mmHg ABG HCO3 (21-25) mmol/L ABG Total CO2 26 H (19-24) mmol/L ABG O2 Saturation 84.3 L (94-97) % Sodium (137-145) mmol/L BUN (7-17) mg/dL Glucose (74-99) mg/dL POC Glucose (mg/dL) 286 H 302 H (75-99) mg/dL Calcium (8.4-10.2) mg/dL Lactate Dehydrogenase (313-618) U/L C-Reactive Protein (<1.0) mg/dL 08/05/21 08/05/21 08/05/21 Range/Units 21:15 21:43 21:56 WBC (3.8-10.6) k/uL Plt Count (150-450) k/uL Neutrophils # (1.3-7.7) k/uL Lymphocytes # (1.0-4.8) k/uL D-Dimer (<0.60) mg/L FEU ABG pH (7.35-7.45) ABG pCO2 (35-45) mmHg ABG pO2 58 L* (83-108) mmHg ABG HCO3 26 H (21-25) mmol/L ABG Total CO2 27 H (19-24) mmol/L ABG O2 Saturation 89.7 L (94-97) % Sodium (137-145) mmol/L BUN (7-17) mg/dL Glucose (74-99) mg/dL POC Glucose (mg/dL) 149 H 129 H (75-99) mg/dL Calcium (8.4-10.2) mg/dL Lactate Dehydrogenase (313-618) U/L C-Reactive Protein (<1.0) mg/dL 08/05/21 08/05/21 08/05/21 Range/Units 22:40 23:05 23:59 WBC (3.8-10.6) k/uL Plt Count (150-450) k/uL Neutrophils # (1.3-7.7) k/uL Lymphocytes # (1.0-4.8) k/uL D-Dimer (<0.60) mg/L FEU ABG pH (7.35-7.45) ABG pCO2 (35-45) mmHg ABG pO2 (83-108) mmHg ABG HCO3 (21-25) mmol/L ABG Total CO2 (19-24) mmol/L ABG O2 Saturation (94-97) % Sodium (137-145) mmol/L BUN (7-17) mg/dL Glucose (74-99) mg/dL POC Glucose (mg/dL) 141 H 143 H 153 H (75-99) mg/dL Calcium (8.4-10.2) mg/dL Lactate Dehydrogenase (313-618) U/L C-Reactive Protein (<1.0) mg/dL 08/06/21 08/06/21 08/06/21 Range/Units 00:55 01:58 03:02 WBC (3.8-10.6) k/uL Plt Count (150-450) k/uL Neutrophils # (1.3-7.7) k/uL Lymphocytes # (1.0-4.8) k/uL D-Dimer (<0.60) mg/L FEU ABG pH (7.35-7.45) ABG pCO2 (35-45) mmHg ABG pO2 (83-108) mmHg ABG HCO3 (21-25) mmol/L ABG Total CO2 (19-24) mmol/L ABG O2 Saturation (94-97) % Sodium (137-145) mmol/L BUN (7-17) mg/dL Glucose (74-99) mg/dL POC Glucose (mg/dL) 171 H 155 H 170 H (75-99) mg/dL Calcium (8.4-10.2) mg/dL Lactate Dehydrogenase (313-618) U/L C-Reactive Protein (<1.0) mg/dL 08/06/21 08/06/21 08/06/21 Range/Units 04:01 05:01 05:46 WBC 15.4 H (3.8-10.6) k/uL Plt Count 113 L (150-450) k/uL Neutrophils # 14.0 H (1.3-7.7) k/uL Lymphocytes # 0.5 L (1.0-4.8) k/uL D-Dimer (<0.60) mg/L FEU ABG pH (7.35-7.45) ABG pCO2 (35-45) mmHg ABG pO2 (83-108) mmHg ABG HCO3 (21-25) mmol/L ABG Total CO2 (19-24) mmol/L ABG O2 Saturation (94-97) % Sodium (137-145) mmol/L BUN (7-17) mg/dL Glucose (74-99) mg/dL POC Glucose (mg/dL) 163 H 164 H (75-99) mg/dL Calcium (8.4-10.2) mg/dL Lactate Dehydrogenase (313-618) U/L C-Reactive Protein (<1.0) mg/dL 08/06/21 08/06/21 08/06/21 Range/Units 05:46 06:00 06:06 WBC (3.8-10.6) k/uL Plt Count (150-450) k/uL Neutrophils # (1.3-7.7) k/uL Lymphocytes # (1.0-4.8) k/uL D-Dimer (<0.60) mg/L FEU ABG pH (7.35-7.45) ABG pCO2 (35-45) mmHg ABG pO2 78 L (83-108) mmHg ABG HCO3 (21-25) mmol/L ABG Total CO2 (19-24) mmol/L ABG O2 Saturation (94-97) % Sodium 135 L (137-145) mmol/L BUN 21 H (7-17) mg/dL Glucose 150 H (74-99) mg/dL POC Glucose (mg/dL) 149 H (75-99) mg/dL Calcium 7.6 L (8.4-10.2) mg/dL Lactate Dehydrogenase (313-618) U/L C-Reactive Protein (<1.0) mg/dL 08/06/21 08/06/21 Range/Units 07:05 07:51 WBC (3.8-10.6) k/uL Plt Count (150-450) k/uL Neutrophils # (1.3-7.7) k/uL Lymphocytes # (1.0-4.8) k/uL D-Dimer (<0.60) mg/L FEU ABG pH (7.35-7.45) ABG pCO2 (35-45) mmHg ABG pO2 (83-108) mmHg ABG HCO3 (21-25) mmol/L ABG Total CO2 (19-24) mmol/L ABG O2 Saturation (94-97) % Sodium (137-145) mmol/L BUN (7-17) mg/dL Glucose (74-99) mg/dL POC Glucose (mg/dL) 140 H 135 H (75-99) mg/dL Calcium (8.4-10.2) mg/dL Lactate Dehydrogenase (313-618) U/L C-Reactive Protein (<1.0) mg/dL Microbiology - Last 24 Hours (Table) 08/05/21 21:15 Gram Stain - Preliminary Sputum Sputum Culture - Preliminary 08/04/21 13:40 Blood Culture - Preliminary Blood No Growth after 24 hours 08/04/21 13:50 Blood Culture - Preliminary Blood No Growth after 24 hours Assessment and Plan (1) Acute respiratory failure with hypoxia Current Visit: Yes Status: Acute Code(s): J96.01 - ACUTE RESPIRATORY FAILURE WITH HYPOXIA SNOMED Code(s): 75185469 (2) Pneumonia due to COVID-19 virus Current Visit: Yes Status: Acute Code(s): U07.1 - COVID-19; J12.82 - PNEUMONIA DUE TO CORONAVIRUS DISEASE 2019 SNOMED Code(s): 388564952430701055 (3) Hypoxia Current Visit: Yes Status: Acute Code(s): R09.02 - HYPOXEMIA SNOMED Code(s): 019546004 (4) Hypothyroidism, unspecified Current Visit: Yes Status: Acute Code(s): E03.9 - HYPOTHYROIDISM, UNSPECIFIED SNOMED Code(s): 79091632 (5) Mixed hyperlipidemia Current Visit: Yes Status: Acute Code(s): E78.2 - MIXED HYPERLIPIDEMIA SNOMED Code(s): 331978573 (6) Type 2 diabetes mellitus without complications Current Visit: Yes Status: Acute Code(s): E11.9 - TYPE 2 DIABETES MELLITUS WITHOUT COMPLICATIONS SNOMED Code(s): 182287208 Plan: 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 She'll remain on her current medications. She'll continue on the current covid protocol, She is on NovoLog insulin every 6 hours to adjust her sugar. We'll repeat labs in the a.m. and a hemoglobin A1c to evaluate her diabetes. She'll be reevaluated next 24 hours
--- NOTE | 2021-08-06 11:29 | PCN ---
PROCEDURE NOTE PULMONARY/CRITICAL CARE PROCEDURE NOTE: PLACEMENT OF LEFT SUBCLAVIAN TRIPLE-LUMEN CATHETER: PREOPERATIVE DIAGNOSIS: Administration of fluids and pressors. POSTOPERATIVE DIAGNOSIS: Administration of fluids and pressors. OPERATORS: 1. Dr. Edmond. 2. Dr. Santoyo. PROCEDURE DESCRIPTION: There was informed consent and universal time-out was completed verifying correct patient, procedure, site, positioning, and implant(s) or special equipment if applicable. The patient was placed in a dependent position appropriate for triple lumen catheter placement based on the vein to be cannulated. The patient's left shoulder was prepped and draped in sterile fashion. 1% Lidocaine was used to anesthetize the surrounding skin area. A triple lumen 9F Cordis catheter was introduced into the left subclavian vein using Seldinger technique. The catheter was threaded smoothly over the guide wire and appropriate blood return was obtained. There was good blood return from all 3 ports. Each lumen of the catheter was evacuated of air and flushed with sterile saline. The catheter was then sutured in place to the skin and a sterile dressing applied by the nurse. The tip of the catheter was seen in the junction of the right atrium and superior vena cava. Perfusion to the extremity distal to the point of catheter insertion was checked and found to be adequate. The patient tolerated the procedure well without complication. Chest x-ray was ordered. MMMANOLOL / ALYSSAN: [id number] /
--- NOTE | 2021-08-06 11:33 | US ---
EXAMINATION TYPE: US venous doppler duplex LE DATE OF EXAM: 08/06/2021 10:52 AM COMPARISON: NONE CLINICAL HISTORY: elevated d-dimer. Covid patient. Swelling. SIDE PERFORMED: Bilateral TECHNIQUE: The lower extremity deep venous system is examined utilizing real time linear array sonog rachel with graded compression, doppler sonography and color-flow sonography. VESSELS IMAGED: Common Femoral Vein Deep Femoral Vein Greater Saphenous Vein * Femoral Vein Popliteal Vein Small Saphenous Vein * Proximal Calf Veins (* superficial vessels) Right Leg: Negative for DVT Left Leg: Negative for DVT Grayscale, color doppler, spectral doppler imaging performed of the deep veins of the bilateral lower extremities. There is normal flow, compressibility, vascular waveforms. IMPRESSION: No ultrasound evidence for acute DVT in either lower extremity.
--- NOTE | 2021-08-06 11:35 | PCN ---
PROCEDURE NOTE PULMONARY/CRITICAL CARE PROCEDURE NOTE: PLACEMENT OF RIGHT RADIAL ARTERIAL LINE: PREOPERATIVE DIAGNOSIS: Frequent blood draws and blood gas monitoring. POSTOPERATIVE DIAGNOSIS: Frequent blood draws and blood gas monitoring. OPERATORS: 1. Dr. Edmond. 2. Dr. Santoyo. PROCEDURE DESCRIPTION: There was informed consent and universal timeout verifying correct patient, procedure, site, positioning, and implant(s) or special equipment if applicable. Dyllan's test was performed to ensure adequate perfusion. The patient's right wrist was prepped and draped in sterile fashion. 1% Lidocaine was used to anesthetize the area. An 18G Arrow arterial line was introduced into the right radial artery. The catheter was threaded over the guide wire and the needle was removed with appropriate pulsatile blood return. There was good blood return and waveform. Blood loss was minimal. The catheter was then sutured in place to the skin and a sterile dressing applied by the nurse. Perfusion to the extremity distal to the point of catheter insertion was checked and found to be adequate. The patient tolerated the procedure well and there was no immediate complication. MMODL / IJN: [id number] /
[2021-08-06 11:42] LABS: Glucose,Whole Blood 176 mg/dL (75-99)
[2021-08-06] MEDS: INSULIN ASPART (NovoLOG) 100 UNIT/ML VIAL SQ SCH ×3 (11:43→20:14)
--- NOTE | 2021-08-06 11:49 | XR ---
EXAMINATION TYPE: XR chest 1V portable DATE OF EXAM: 08/06/2021 CLINICAL HISTORY: Central line placement. TECHNIQUE: Single AP portable semiupright view of the chest is obtained. COMPARISON: Chest x-ray from earlier today an older study FINDINGS: New left-sided Subclavian central venous catheter terminates at the cavoatrial junction. N o pneumothorax identified. Stable endotracheal and orogastric tubes. There are stable persistent bilateral multifocal and confluent opacities. The cardiac silhouette size is stable and within normal limits. The osseous structures are intact. IMPRESSION: As above.
[2021-08-06] MEDS: KETOROLAC 30 MG/ML 1 ML VIAL IVP PRN (15:55)
[2021-08-06 16:29] LABS: Glucose,Whole Blood 211 mg/dL (75-99)
[2021-08-06 20:12] LABS: Glucose,Whole Blood 212 mg/dL (75-99)
[2021-08-06 23:31] LABS: Glucose,Whole Blood 172 mg/dL (75-99)
[2021-08-07] MEDS: INSULIN ASPART (NovoLOG) 100 UNIT/ML VIAL SQ SCH ×6 (00:12→20:46)
[2021-08-07] MEDS: ARTIFICIAL TEARS-HYPROMELLOSE DROPS 15 ML BTL BOTH EYES SCH ×7 (00:12→23:59)
[2021-08-07] MEDS: ALBUTEROL HFA INHALER INHALATION SCH ×5 (03:30→19:45)
[2021-08-07 04:26] LABS: Basophils # (A) 0.1 k/uL (0-0.2); Basophils % (A) 0 %; Eosinophils % (A) 0 %; HCT 35.6 % (34.0-46.0); Lymphocytes # (A) 0.5 k/uL (1.0-4.8); Lymphocytes % (A) 3 %; MCH 30.4 pg (25.0-35.0); MCHC 33.7 g/dL (31.0-37.0); MCV 90.3 fL (80.0-100.0); Monocytes # (A) 0.3 k/uL (0-1.0); Monocytes % (A) 2 %; Neutrophils # (A) 14.5 k/uL (1.3-7.7); Neutrophils % (A) 94 %; Platelet Count 119 k/uL (150-450); RBC 3.94 m/uL (3.80-5.40); RDW 13.4 % (11.5-15.5); WBC 15.5 k/uL (3.8-10.6)
[2021-08-07 04:43] LABS: ALT 106 U/L (4-34); AST 99 U/L (14-36); African American GFR (CKD) >90 (>60 ml/min/1.73 sqM); Albumin 2.2 g/dL (3.5-5.0); Alkaline Phosphatase 131 U/L (38-126); Anion Gap 5 mmol/L; Blood Urea Nitrogen 19 mg/dL (7-17); Calcium 7.9 mg/dL (8.4-10.2); Carbon Dioxide 23 mmol/L (22-30); Chloride 110 mmol/L (98-107); Glucose 204 mg/dL (74-99); LDH 847 U/L (313-618); Magnesium 2.1 mg/dL (1.6-2.3); Non-African American GFR(CKD) 83 (>60 ml/min/1.73 sqM); Potassium 3.8 mmol/L (3.5-5.1); Sodium 138 mmol/L (137-145); Total Bilirubin 0.5 mg/dL (0.2-1.3); Total Protein 4.8 g/dL (6.3-8.2)
[2021-08-07 04:44] LABS: INR 0.9 (<1.2); Prothrombin Time 9.9 sec (9.0-12.0)
[2021-08-07 04:54] LABS: C Reactive Protein 18.7 mg/dL (<1.0)
[2021-08-07 05:07] LABS: Partial Thromboplastin Time 21.2 sec (22.0-30.0)
[2021-08-07] MEDS: SODIUM CHLORIDE 0.9% 1,000 ML IV SCH ×2 (05:15→17:00)
[2021-08-07] MEDS ORDERED: POTASSIUM BICARBONATE/CIT AC 20 MEQ TABLET.EFF NG-TUBE SCH (06:00)
[2021-08-07 06:01] LABS: ABG Base Excess -1.4 mmol/L; ABG HCO3 24 mmol/L (21-25); ABG Oxygen Saturation 93.2 % (94-97); ABG PCO2 45 mmHg (35-45); ABG PH 7.34 (7.35-7.45); ABG PO2 68 mmHg (83-108); ABG TCO2 26 mmol/L (19-24); Allen Test Performed? Yes
[2021-08-07] MEDS: CISATRACURIUM 200 MG in SODIUM CHLORIDE 0.9% 180 ML IV SCH (07:43)
[2021-08-07 07:59] LABS: Glucose,Whole Blood 196 mg/dL (75-99)
[2021-08-07] MEDS: CHOLECALCIFEROL 125 MCG (5000 IU) TABLET PO SCH (08:19)
[2021-08-07] MEDS: LEVOTHYROXINE IVP 100 MCG/5 ML VIAL IV SCH (08:19)
[2021-08-07] MEDS: ASCORBIC ACID 500 MG TAB PO SCH (08:19)
[2021-08-07] MEDS: ENOXAPARIN 40 MG/0.4 ML SYRINGE SQ SCH (08:20)
[2021-08-07] MEDS: BARICITINIB 2 MG TABLET PO SCH (08:20)
[2021-08-07] MEDS: DEXAMETHASONE SOD PHOSPHATE 10 MG/ML 1 ML VIAL IVP SCH (08:20)
[2021-08-07] MEDS: CHLORHEXIDINE GLUCONATE 15 ML CUP MUCOUS MEM SCH ×2 (08:20→20:31)
[2021-08-07] MEDS: ZINC SULFATE 220 MG CAP PO SCH (08:20)
--- NOTE | 2021-08-07 11:32 | XR ---
EXAMINATION TYPE: XR chest 1V portable DATE OF EXAM: 08/07/2021 COMPARISON: 08/06/2021 HISTORY: 76 years Female. STUDY INDICATION GIVEN: Tube placement . TECHNIQUE: AP chest radiograph IMPRESSION: Tip of left CVC projects in the right atrium. Enteric tube courses into the stomach. Tip of endotrach eal tube about 2.5 cm above kay. Partially seen catheter in the left side of the neck just lateral to the spine without extension into the chest, correlation with history recommended. Worsening bilateral interstitial and airspace opacities somewhat accentuated by decreased lung volume in comparison to the prior study. No pneumothorax or large effusion. No cardiomegaly. Stable osseous structures.
[2021-08-07 11:38] LABS: Glucose,Whole Blood 202 mg/dL (75-99)
--- NOTE | 2021-08-07 12:18 | P.PN ---
Subjective Progress Note Date: 08/07/21 Principal diagnosis: Covid pneumonia 76-year-old female presented emergency room with cough, congestion, dyspnea and weakness and fatigue over several weeks. Approximately week ago patient took a home Covid test which indicated that she was positive. She has not received Covid vaccine or treatment for the positive Covid test. When symptoms worsened she decided to present to the ER for evaluation and treatment. She was initially placed on BiPAP in the intensive care unit and subsequently been intubated. She is currently paralyzed with cisatracurium, sedated with propofol and utilizing Toradol IV push for pain management. Currently mechanically ventilated on 80% FiO2. Patient is afebrile 96.9, respiratory rate of 26, blood pressure is stable at 109/51, maintain oxygen saturation of 90% and entitle CO2 of 28. Most recent set of vital signs WC count of 15.5, hematocrit of 35.6, hemoglobin 12.0, platelet count 119. Chemistry panel reveals a sodium 138, potassium 3.8, BUN of 19, creatinine 0.72, GFR 83, AST of 99, ELT 106, alk phos 131, LDH 847. TSH of 8.37. T4 0.5, pro-calcitonin 0.34 Objective - Vital Signs Vital signs: Vital Signs Temp 96.9 F L 08/07/21 08:00 Pulse 68 08/07/21 11:00 Resp 26 H 08/07/21 11:00 BP 108/63 08/07/21 11:00 Pulse Ox 90 L 08/07/21 10:00 Intake & Output 08/06/21 08/07/21 08/07/21 18:59 06:59 18:59 Intake Total 6953.858 7011.822 682.984 Output Total 560 755 210 Balance 2050.463 0933.822 472.984 Weight 92.4 kg Intake: IV 981 996 415 Pressure bag 21 36 15 Sodium Chloride 0.9% 1, 960 960 400 000 ml @ 80 mls/hr IV . [id number] COUNTS INCLUDE 234 BEDS AT THE [facility] Rx#:[id number] Intake, IV Titration 338.360 328.822 92.984 Amount Cisatracurium 200 mg In 146.874 107.016 92.984 Sodium Chloride 0.9% 180 ml @ 2 MCG/KG/MIN 10.92 mls/hr IV .[id number] [facility] Rx #:[id number] Insulin Regular 100 unit 2.828 In Sodium Chloride 0.9% 100 ml @ Per Protocol IV .Q0M [facility] Rx#:[id number] propofoL 1,000 mg In 188.658 221.806 Empty Bag 1 bag @ Titrate IV .Q0M [facility] Rx#: [id number] Tube Feeding 243 348 145 Other 140 90 30 Output: Urine 560 755 210 Other: Voiding Method Indwelling Catheter Indwelling Catheter Indwelling Catheter ABP, PAP, CO, CI - Last Documented Arterial Blood Pressure 109/51 - Exam GENERAL: Elderly female, currently intubated, sedated and paralyzed Neck: Supple without lymphadenopathy or JVD, no thyromegaly Lungs: Breath sounds coarse bilaterally and mechanically ventilated Heart: Regular rate and rhythm without murmurs, rubs or gallops. S1-S2 normal Abdomen: Soft, nontender, normoactive bowel sounds. No guarding or rebound. No masses appreciated Extremities: No pitting or edema. No clubbing or cyanosis Neurological: Sedated Skin: Warm, dry, normal turgor, no rashes or lesions noted - Labs CBC & Chem 7: 08/07/21 03:30 08/07/21 03:30 Labs: Abnormal Lab Results - Last 24 Hours (Table) 08/06/21 08/06/21 08/06/21 Range/Units 05:46 16:28 20:10 WBC (3.8-10.6) k/uL Plt Count (150-450) k/uL Neutrophils # (1.3-7.7) k/uL Lymphocytes # (1.0-4.8) k/uL APTT (22.0-30.0) sec Fibrinogen (200-500) mg/dL D-Dimer (<0.60) mg/L FEU ABG pH (7.35-7.45) ABG pO2 (83-108) mmHg ABG Total CO2 (19-24) mmol/L ABG O2 Saturation (94-97) % Chloride (98-107) mmol/L BUN (7-17) mg/dL Glucose (74-99) mg/dL POC Glucose (mg/dL) 211 H 212 H (75-99) mg/dL Calcium (8.4-10.2) mg/dL AST (14-36) U/L ALT (4-34) U/L Alkaline Phosphatase (38-126) U/L Lactate Dehydrogenase (313-618) U/L C-Reactive Protein (<1.0) mg/dL Total Protein (6.3-8.2) g/dL Albumin (3.5-5.0) g/dL Procalcitonin 0.41 H (0.02-0.09) ng/mL TSH (0.465-4.680) mIU/L Free T4 (0.78-2.19) ng/dL 08/06/21 08/07/21 08/07/21 Range/Units 23:30 03:30 03:30 WBC 15.5 H (3.8-10.6) k/uL Plt Count 119 L (150-450) k/uL Neutrophils # 14.5 H (1.3-7.7) k/uL Lymphocytes # 0.5 L (1.0-4.8) k/uL APTT 21.2 L (22.0-30.0) sec Fibrinogen 612 H (200-500) mg/dL D-Dimer 0.75 H (<0.60) mg/L FEU ABG pH (7.35-7.45) ABG pO2 (83-108) mmHg ABG Total CO2 (19-24) mmol/L ABG O2 Saturation (94-97) % Chloride (98-107) mmol/L BUN (7-17) mg/dL Glucose (74-99) mg/dL POC Glucose (mg/dL) 172 H (75-99) mg/dL Calcium (8.4-10.2) mg/dL AST (14-36) U/L ALT (4-34) U/L Alkaline Phosphatase (38-126) U/L Lactate Dehydrogenase (313-618) U/L C-Reactive Protein (<1.0) mg/dL Total Protein (6.3-8.2) g/dL Albumin (3.5-5.0) g/dL Procalcitonin (0.02-0.09) ng/mL TSH (0.465-4.680) mIU/L Free T4 (0.78-2.19) ng/dL 08/07/21 08/07/21 08/07/21 Range/Units 03:30 03:30 03:30 WBC (3.8-10.6) k/uL Plt Count (150-450) k/uL Neutrophils # (1.3-7.7) k/uL Lymphocytes # (1.0-4.8) k/uL APTT (22.0-30.0) sec Fibrinogen (200-500) mg/dL D-Dimer (<0.60) mg/L FEU ABG pH (7.35-7.45) ABG pO2 (83-108) mmHg ABG Total CO2 (19-24) mmol/L ABG O2 Saturation (94-97) % Chloride 110 H (98-107) mmol/L BUN 19 H (7-17) mg/dL Glucose 204 H (74-99) mg/dL POC Glucose (mg/dL) (75-99) mg/dL Calcium 7.9 L (8.4-10.2) mg/dL AST 99 H (14-36) U/L ALT 106 H (4-34) U/L Alkaline Phosphatase 131 H (38-126) U/L Lactate Dehydrogenase 847 H (313-618) U/L C-Reactive Protein 18.7 H (<1.0) mg/dL Total Protein 4.8 L (6.3-8.2) g/dL Albumin 2.2 L (3.5-5.0) g/dL Procalcitonin 0.34 H (0.02-0.09) ng/mL TSH 8.370 H (0.465-4.680) mIU/L Free T4 0.51 L (0.78-2.19) ng/dL 08/07/21 08/07/21 08/07/21 Range/Units 06:00 07:58 11:36 WBC (3.8-10.6) k/uL Plt Count (150-450) k/uL Neutrophils # (1.3-7.7) k/uL Lymphocytes # (1.0-4.8) k/uL APTT (22.0-30.0) sec Fibrinogen (200-500) mg/dL D-Dimer (<0.60) mg/L FEU ABG pH 7.34 L (7.35-7.45) ABG pO2 68 L (83-108) mmHg ABG Total CO2 26 H (19-24) mmol/L ABG O2 Saturation 93.2 L (94-97) % Chloride (98-107) mmol/L BUN (7-17) mg/dL Glucose (74-99) mg/dL POC Glucose (mg/dL) 196 H 202 H (75-99) mg/dL Calcium (8.4-10.2) mg/dL AST (14-36) U/L ALT (4-34) U/L Alkaline Phosphatase (38-126) U/L Lactate Dehydrogenase (313-618) U/L C-Reactive Protein (<1.0) mg/dL Total Protein (6.3-8.2) g/dL Albumin (3.5-5.0) g/dL Procalcitonin (0.02-0.09) ng/mL TSH (0.465-4.680) mIU/L Free T4 (0.78-2.19) ng/dL Microbiology - Last 24 Hours (Table) 08/05/21 21:15 Gram Stain - Preliminary Sputum Sputum Culture - Preliminary Moraxella(branhamella) catarra 08/04/21 13:50 Blood Culture - Preliminary Blood No Growth after 48 hours 08/04/21 13:40 Blood Culture - Preliminary Blood No Growth after 48 hours Assessment and Plan (1) Acute respiratory failure with hypoxia Current Visit: Yes Status: Acute Code(s): J96.01 - ACUTE RESPIRATORY FAILURE WITH HYPOXIA SNOMED Code(s): 81729047 (2) Hypothyroidism, unspecified Current Visit: Yes Status: Acute Code(s): E03.9 - HYPOTHYROIDISM, UNSPECIFIED SNOMED Code(s): 09913960 (3) Hypoxia Current Visit: Yes Status: Acute Code(s): R09.02 - HYPOXEMIA SNOMED Code(s): 192454573 (4) Mixed hyperlipidemia Current Visit: Yes Status: Acute Code(s): E78.2 - MIXED HYPERLIPIDEMIA SNOMED Code(s): 295842026 (5) Pneumonia due to COVID-19 virus Current Visit: Yes Status: Acute Code(s): U07.1 - COVID-19; J12.82 - PNEUMONIA DUE TO CORONAVIRUS DISEASE 2019 SNOMED Code(s): 035667578059716308 (6) Type 2 diabetes mellitus without complications Current Visit: Yes Status: Acute Code(s): E11.9 - TYPE 2 DIABETES MELLITUS WITHOUT COMPLICATIONS SNOMED Code(s): 641966311 Plan: Continue on her current medications [place] [employer] Member covering ICU care Continue current Covid protocol Continue on NovoLog insulin scale every 6 hours Repeat labs in a.m. We'll continue to follow closely and reevaluate again in 24 hours Time with Patient: Greater than 30
--- NOTE | 2021-08-07 13:30 | P.PN ---
Subjective Progress Note Date: 08/07/21 Principal diagnosis: Respiratory failure. This is a 76-year-old female seen in the emergency room, on August 04. She came in with complaints of shortness of breath and difficulty breathing. In addition, she had cough, chest congestion, generalized weakness, lightheadedness, his been sick for about a month or so. She apparently tested positive for coronavirus on July 30. Currently, she is on BiPAP, with settings of 15/5 and 100%. She's getting saline at 80 mL an hour. She has a history of hyperlipidemia, diabetes, hypertension, and hypothyroidism. White count 17, hemoglobin 13.7, hematocrit 40.6, and platelet count 133,000. D-dimer was 0.97. Sodium 133, potassium 4, chlorides 100, CO2 24, anion gap 9, BUN 18, creatinine 0.6. LDH was 1477 and C-reactive protein was 15.9. Chest x-ray showed elevation of the right diaphragm, and diffuse bilateral airspace disease consistent with coronavirus pneumonia. On today's evaluation on 08/06/2021 patient is seen in the intensive care unit. Patient was admitted on 08/04/2021 with symptoms of COVID-19 ammonia that have been present for about a month's, patient had a positive home test on 07/30/2021. Patient's hypoxia and dyspnea has significantly progressed, and intubated on 08/05/2021. While she is sedated and intubated on assist control mode of ventilation with a rate of 26, tidal volume is 400, FiO2 of 90% and PEEP of 15, this morning's blood gas shows pO2 of 78, pCO2 of 40, and pH of 7.41. This was done on FiO2 of 100% and FiO2 had since been dropped down to 90%. Patient is maintaining O2 saturations between 96-98%. Peak airway pressure is 34, plateau pressure is 31. Currently on 0.9 at 80 ML per hour, Diprivan is at 30 mics per kilo per minute, Nimbex is at 2 mics per kilo per minute. Today's chest x-ray shows bilateral multifocal and confluent opacities consistent with COVID-19 pneumonia. Today's labs have been reviewed, white blood cell count is improving and is down to 15.4, hemoglobin is 12.3, serum sodium is improved and is up to 135 compared to 129 on admission, potassium is 4.1, BUN is 21 creatinine is 0.78 yesterday's LFTs have been reviewed and AST was 122, ALT is 74, applying phosphatases 83, LDH was 1477, and CRP was 15.9 proBNP was within normal limits at 181 bronchial Quinter level was 0.48, borderline, sputum cultures have been sent and showed few PMNs, many gram-negative diplococci. Final culture is pending. Blood culturef show no growth thus far. No dy namically patient is slightly bradycardic in the sinus mechanism with a rate of 51, blood pressure is 102/57, she was slightly hypotensive she was given a liter bolus this morning, she is getting another liter bolus infusing right now for low urine output. Patient is currently receiving Decadron 6 mg daily, she is on Baricitinib, Lovenox 40 mg daily, and COVID-19 vitamins. [facility] 0.97. Progress note dated 08/07/2021. 76-year-old female, again seen in the intensive care unit, room 252. She remains on the mechanical ventilator. The patient was intubated on August 05 for respiratory failure. She is on the volume assist control mode, rate 26, tidal volume 400, FiO2 80%, and PEEP of 15. Blood gases show a PaO2 of 68, pCO2 45, and a pH of 7.34. She is on propofol at 40 mcg/kg/m, Nimbex at 1.5 mcg/kg/m, saline at 80 mL an hour, and vital AF at 29 mL an hour, which is goal. White count 15.5, hemoglobin 12, hematocrit 35.6, platelet count 119,000. D- dimer is 0.75. Fibrinogen level DCXII. Sodium 138, potassium 3.8, chlorides 110, CO2 23, anion gap 5, BUN 19, creatinine 0.72. LDH is 847. C-reactive protein is 18.7, and her TSH is 8.370. Chest x-ray shows diffuse bilateral infiltrates. Objective - Vital Signs Vital signs: Vital Signs Temp 97.7 F 08/07/21 12:00 Pulse 76 08/07/21 12:00 Resp 26 H 08/07/21 12:00 BP 100/60 08/07/21 12:00 Pulse Ox 93 L 08/07/21 12:00 Intake & Output 08/06/21 08/07/21 08/07/21 18:59 06:59 18:59 Intake Total 2909.357 1529.822 982.928 Output Total 560 755 235 Balance 1941.631 4423.822 747.928 Weight 92.4 kg 97.2 kg Intake: IV 981 996 498 Pressure bag 21 36 18 Sodium Chloride 0.9% 1, 960 960 480 000 ml @ 80 mls/hr IV . [id number] [facility] Rx#:[id number] Intake, IV Titration 338.360 328.822 190.928 Amount Cisatracurium 200 mg In 146.874 107.016 92.984 Sodium Chloride 0.9% 180 ml @ 2 MCG/KG/MIN 10.92 mls/hr IV .[id number] [facility] Rx #:[id number] Insulin Regular 100 unit 2.828 In Sodium Chloride 0.9% 100 ml @ Per Protocol IV .Q0M [facility] Rx#:[id number] propofoL 1,000 mg In 188.658 221.806 97.944 Empty Bag 1 bag @ Titrate IV .Q0M [facility] Rx#: [id number] Tube Feeding 243 348 174 Other 140 90 120 Output: Urine 560 755 235 Other: Voiding Method Indwelling Catheter Indwelling Catheter Indwelling Catheter ABP, PAP, CO, CI - Last Documented Arterial Blood Pressure 125/57 - Exam No acute distress, sedated and paralyzed, with an orally placed endotracheal tube and NG tube. HEENT examination is grossly unremarkable. Neck supple. Full range of motion. No adenopathy thyromegaly or neck vein distention. Cardiovascular examination reveals regular rhythm rate. S1-S2 normal. No S3 or S4. No discernible murmur noted. Heart sounds are distant. Heart rate 76 bpm. Lungs reveal use bilateral rhonchi. No wheezes or crackles. Breath sounds equal. Saturations 93%. Abdomen soft bowel sounds are heard. No masses or tenderness. Extremities are intact. No cyanosis clubbing or edema. Skin is without rash or lesion. Neurologic examination cannot be adequately assessed as the patient's currently sedated and paralyzed. - Labs CBC & Chem 7: 08/07/21 03:30 08/07/21 03:30 Labs: Abnormal Lab Results - Last 24 Hours (Table) 11/27/21 11/27/21 11/27/21 Range/Units 05:46 16:28 20:10 WBC (3.8-10.6) k/uL Plt Count (150-450) k/uL Neutrophils # (1.3-7.7) k/uL Lymphocytes # (1.0-4.8) k/uL APTT (22.0-30.0) sec Fibrinogen (200-500) mg/dL D-Dimer (<0.60) mg/L FEU ABG pH (7.35-7.45) ABG pO2 (83-108) mmHg ABG Total CO2 (19-24) mmol/L ABG O2 Saturation (94-97) % Chloride (98-107) mmol/L BUN (7-17) mg/dL Glucose (74-99) mg/dL POC Glucose (mg/dL) 211 H 212 H (75-99) mg/dL Hemoglobin A1c (4.0-6.0) % Calcium (8.4-10.2) mg/dL AST (14-36) U/L ALT (4-34) U/L Alkaline Phosphatase (38-126) U/L Lactate Dehydrogenase (313-618) U/L C-Reactive Protein (<1.0) mg/dL Total Protein (6.3-8.2) g/dL Albumin (3.5-5.0) g/dL Procalcitonin 0.41 H (0.02-0.09) ng/mL TSH (0.465-4.680) mIU/L Free T4 (0.78-2.19) ng/dL 08/06/21 08/07/21 08/07/21 Range/Units 23:30 03:30 03:30 WBC 15.5 H (3.8-10.6) k/uL Plt Count 119 L (150-450) k/uL Neutrophils # 14.5 H (1.3-7.7) k/uL Lymphocytes # 0.5 L (1.0-4.8) k/uL APTT (22.0-30.0) sec Fibrinogen (200-500) mg/dL D-Dimer (<0.60) mg/L FEU ABG pH (7.35-7.45) ABG pO2 (83-108) mmHg ABG Total CO2 (19-24) mmol/L ABG O2 Saturation (94-97) % Chloride (98-107) mmol/L BUN (7-17) mg/dL Glucose (74-99) mg/dL POC Glucose (mg/dL) 172 H (75-99) mg/dL Hemoglobin A1c 8.4 H (4.0-6.0) % Calcium (8.4-10.2) mg/dL AST (14-36) U/L ALT (4-34) U/L Alkaline Phosphatase (38-126) U/L Lactate Dehydrogenase (313-618) U/L C-Reactive Protein (<1.0) mg/dL Total Protein (6.3-8.2) g/dL Albumin (3.5-5.0) g/dL Procalcitonin (0.02-0.09) ng/mL TSH (0.465-4.680) mIU/L Free T4 (0.78-2.19) ng/dL 08/07/21 08/07/21 08/07/21 Range/Units 03:30 03:30 03:30 WBC (3.8-10.6) k/uL Plt Count (150-450) k/uL Neutrophils # (1.3-7.7) k/uL Lymphocytes # (1.0-4.8) k/uL APTT 21.2 L (22.0-30.0) sec Fibrinogen 612 H (200-500) mg/dL D-Dimer 0.75 H (<0.60) mg/L FEU ABG pH (7.35-7.45) ABG pO2 (83-108) mmHg ABG Total CO2 (19-24) mmol/L ABG O2 Saturation (94-97) % Chloride 110 H (98-107) mmol/L BUN 19 H (7-17) mg/dL Glucose 204 H (74-99) mg/dL POC Glucose (mg/dL) (75-99) mg/dL Hemoglobin A1c (4.0-6.0) % Calcium 7.9 L (8.4-10.2) mg/dL AST 99 H (14-36) U/L ALT 106 H (4-34) U/L Alkaline Phosphatase 131 H (38-126) U/L Lactate Dehydrogenase 847 H (313-618) U/L C-Reactive Protein 18.7 H (<1.0) mg/dL Total Protein 4.8 L (6.3-8.2) g/dL Albumin 2.2 L (3.5-5.0) g/dL Procalcitonin (0.02-0.09) ng/mL TSH 8.370 H (0.465-4.680) mIU/L Free T4 0.51 L (0.78-2.19) ng/dL 08/07/21 08/07/21 08/07/21 Range/Units 03:30 06:00 07:58 WBC (3.8-10.6) k/uL Plt Count (150-450) k/uL Neutrophils # (1.3-7.7) k/uL Lymphocytes # (1.0-4.8) k/uL APTT (22.0-30.0) sec Fibrinogen (200-500) mg/dL D-Dimer (<0.60) mg/L FEU ABG pH 7.34 L (7.35-7.45) ABG pO2 68 L (83-108) mmHg ABG Total CO2 26 H (19-24) mmol/L ABG O2 Saturation 93.2 L (94-97) % Chloride (98-107) mmol/L BUN (7-17) mg/dL Glucose (74-99) mg/dL POC Glucose (mg/dL) 196 H (75-99) mg/dL Hemoglobin A1c (4.0-6.0) % Calcium (8.4-10.2) mg/dL AST (14-36) U/L ALT (4-34) U/L Alkaline Phosphatase (38-126) U/L Lactate Dehydrogenase (313-618) U/L C-Reactive Protein (<1.0) mg/dL Total Protein (6.3-8.2) g/dL Albumin (3.5-5.0) g/dL Procalcitonin 0.34 H (0.02-0.09) ng/mL TSH (0.465-4.680) mIU/L Free T4 (0.78-2.19) ng/dL 08/07/21 Range/Units 11:36 WBC (3.8-10.6) k/uL Plt Count (150-450) k/uL Neutrophils # (1.3-7.7) k/uL Lymphocytes # (1.0-4.8) k/uL APTT (22.0-30.0) sec Fibrinogen (200-500) mg/dL D-Dimer (<0.60) mg/L FEU ABG pH (7.35-7.45) ABG pO2 (83-108) mmHg ABG Total CO2 (19-24) mmol/L ABG O2 Saturation (94-97) % Chloride (98-107) mmol/L BUN (7-17) mg/dL Glucose (74-99) mg/dL POC Glucose (mg/dL) 202 H (75-99) mg/dL Hemoglobin A1c (4.0-6.0) % Calcium (8.4-10.2) mg/dL AST (14-36) U/L ALT (4-34) U/L Alkaline Phosphatase (38-126) U/L Lactate Dehydrogenase (313-618) U/L C-Reactive Protein (<1.0) mg/dL Total Protein (6.3-8.2) g/dL Albumin (3.5-5.0) g/dL Procalcitonin (0.02-0.09) ng/mL TSH (0.465-4.680) mIU/L Free T4 (0.78-2.19) ng/dL Microbiology - Last 24 Hours (Table) 08/05/21 21:15 Gram Stain - Preliminary Sputum Sputum Culture - Preliminary Moraxella(branhamella) catarra 08/04/21 13:50 Blood Culture - Preliminary Blood No Growth after 48 hours 08/04/21 13:40 Blood Culture - Preliminary Blood No Growth after 48 hours Assessment and Plan Assessment: Acute hypoxemic respiratory failure secondary to coronavirus associated pneumonia, status post intubation and mechanical ventilation on 08/05/2021. Elevated inflammatory marker secondary to coronavirus infection. Sputum positive for Moraxella catarrhalis. History of essential hypertension. Negative for DVT of the bilateral lower extremities. History of hyperlipidemia. History of diabetes mellitus. History of hypothyroidism, not well controlled. Plan: Plan dated 08/05/2021. The patient's on vitamin C, vitamin D3, and zinc. In addition, the patient's getting Decadron 6 mg a day, and Lovenox 40 mg subcu daily. We also added GOLDEN to the patient's regimen. The patient may end up requiring intubation and mechanical ventilation. She is quite ill, and she is hypoxemic despite being on BiPAP at 100%. Additional recommendations and suggestions are forthcoming. Prognosis is guarded. We will continue to follow make recommendations where appropriate. Plan dated 08/07/2021. The patient remains on appropriate medications including vitamin C, vitamin D3, and zinc. In addition, the patient is getting level thyroxine 100 g daily down the NG tube. The patient remains on Lovenox 40 mg a day, and Decadron 6 mg a day. She also is getting GOLDEN, 4 mg a day. We will continue to follow make recommendations were appropriate. Prognosis is guarded. Her PEEP was increased to 20 cm water, in an attempt to reduce the FiO2. Additional recommendations and suggestions are forthcoming. Time with Patient: Greater than 30
[2021-08-07 16:04] LABS: Glucose,Whole Blood 232 mg/dL (75-99)
[2021-08-07 20:46] LABS: Glucose,Whole Blood 175 mg/dL (75-99)
[2021-08-08] MEDS: ALBUTEROL HFA INHALER INHALATION SCH ×6 (00:02→19:57)
[2021-08-08 00:18] LABS: Glucose,Whole Blood 155 mg/dL (75-99)
[2021-08-08] MEDS: INSULIN ASPART (NovoLOG) 100 UNIT/ML VIAL SQ SCH ×6 (00:26→20:27)
[2021-08-08] MEDS: ARTIFICIAL TEARS-HYPROMELLOSE DROPS 15 ML BTL BOTH EYES SCH ×5 (03:05→20:12)
[2021-08-08] MEDS: CISATRACURIUM 200 MG in SODIUM CHLORIDE 0.9% 180 ML IV SCH ×2 (03:08→20:12)
[2021-08-08] MEDS: SODIUM CHLORIDE 0.9% 1,000 ML IV SCH ×2 (03:08→20:13)
[2021-08-08 03:36] LABS: Glucose,Whole Blood 184 mg/dL (75-99)
[2021-08-08 03:52] LABS: Basophils % (A) 0 %; Eosinophils % (A) 0 %; HCT 34.2 % (34.0-46.0); HGB 11.6 gm/dL (11.4-16.0); Lymphocytes # (A) 0.5 k/uL (1.0-4.8); Lymphocytes % (A) 4 %; MCH 31.3 pg (25.0-35.0); Mean Platelet Volume 9.2; Monocytes # (A) 0.4 k/uL (0-1.0); Monocytes % (A) 3 %; Neutrophils # (A) 12.3 k/uL (1.3-7.7); Neutrophils % (A) 93 %; Platelet Count 140 k/uL (150-450); RBC 3.72 m/uL (3.80-5.40); RDW 14.2 % (11.5-15.5); WBC 13.3 k/uL (3.8-10.6)
[2021-08-08 04:20] LABS: African American GFR (CKD) >90 (>60 ml/min/1.73 sqM); Anion Gap 4 mmol/L; Blood Urea Nitrogen 17 mg/dL (7-17); Calcium 8.2 mg/dL (8.4-10.2); Carbon Dioxide 23 mmol/L (22-30); Chloride 113 mmol/L (98-107); Glucose 198 mg/dL (74-99); Non-African American GFR(CKD) >90 (>60 ml/min/1.73 sqM); Potassium 4.3 mmol/L (3.5-5.1); Sodium 140 mmol/L (137-145)
[2021-08-08 05:40] LABS: ABG Base Excess 0.8 mmol/L; ABG HCO3 26 mmol/L (21-25); ABG Oxygen Saturation 92.5 % (94-97); ABG PCO2 43 mmHg (35-45); ABG PH 7.39 (7.35-7.45); ABG PO2 61 mmHg (83-108); ABG TCO2 27 mmol/L (19-24)
[2021-08-08] MEDS: LEVOTHYROXINE 100 MCG TAB OG-TUBE SCH (06:07)
[2021-08-08] MEDS ORDERED: FUROSEMIDE 10 MG/ML 4 ML VIAL IV STA (06:57)
--- NOTE | 2021-08-08 06:57 | P.PN ---
Subjective Progress Note Date: 08/08/21 This is a 76-year-old female patient who presented to us on 08/04/2021 for shortness of breath and hypoxemia. The patient tested positive COVID-19 on 07/30/2021. Noted the patient was feeling sick prior to that. She was initially on a BiPAP for support as the patient was quite hypoxic. Her comorbid conditions included diabetes mellitus, hypertension, hypothyroidism and hyperlipidemia. Chest x-ray also showed elevation of the right hemidiaphragm along with diffuse bilateral airspace disease consistent with COVID-19 related pneumonia. Within a few days of admission, the patient decompensated and the patient to be intubated and placed on mechanical ventilator. The patient was intubated on 08/05/2021 and the patient remains intubated, sedated, paralyzed this point in time. Note that the patient is an assist-control mode of mechanical ventilation at the rate of 26 with a tidal volume of 400 and FiO2 of 80% with a PEEP of 20. Chest x-ray was noted. Blood gases was noted. The patient remains on propofol running at 40 mcg/kg per minute and the patient is also Nimbex at 1.5 mcg/kg per minute. Normal saline is running at the rate of 80 mL an hour and the patient is also on enteral feeding for nutritional support with vitamin AF at the rate of 29 mL an hour, goal. Inflammatory markers were modestly elevated with an LDH of 847, CRP of 18.7 from yesterday. Chest x-ray was consistent with diffuse bilateral pulmonary infiltrates. Sputum basket turner to be positive for Moraxella catarrhalis and the patient's pro calcitonin level was at 0.34. At this point in time, the patient is on Baricitinib was started on 08/05/2021 in addition to Decadron 6 mg IV every 24 hours. The patient is also on Lovenox 40 mg subcu for DVT prophylaxis. No antibiotic coverage is offered to this patient this point in time. The white cell count from yesterday was elevated at 15. The patient also had a consent form and of mild transaminitis. Inflammatory markers have been gradually improving. Note that the patient from yesterday was down to 847, troponins are negative, TSH wasn't 8.3 with a free T4 of 0.51. The pro calcitonin on several occasions was checked and it remained at 0.3 and 0.4 range. On today's evaluation of 08/08/2021, the patient remains essentially on the same ventilator setting. The patient is on a assist-control mode at the rate of 26 with a tidal volume 400 and FiO2 of 65% with a PEEP of 20. Peak airway pressure is 46, static airway pressures around 45. The blood gases from today shows a pH of 7.39 with a pCO2 of 42 and pO2 of 16 1. Chest x- ray showed diffuse bilateral pulmonary infiltrates. ET tube is in a good location. Orogastric tube is in a good location. The patient also has a triple-lumen catheter in the subclavian vein on the left. In comparison to yesterday's chest x-ray, there is no major interval change. In terms of his blood work, no significant abnormalities noted, inflammatory markers were not checked today, the white cell count is at 15.3 and the patient is afebrile. Objective - Vital Signs Vital signs: Vital Signs Temp 97.7 F 08/08/21 04:00 Pulse 62 08/08/21 06:00 Resp 26 H 08/08/21 06:00 BP 113/68 08/08/21 06:00 Pulse Ox 93 L 08/08/21 06:00 Intake & Output 08/07/21 08/07/21 08/08/21 06:59 18:59 06:59 Intake Total 9628.249 7916.981 1761.399 Output Total 755 570 565 Balance 4972.699 3040.981 1196.399 Weight 97.2 kg 94 kg Intake: IV 996 996 996 Pressure bag 36 36 36 Sodium Chloride 0.9% 1, 960 960 960 000 ml @ 80 mls/hr IV . [id number] [facility] Rx#:[id number] Intake, IV Titration 328.822 289.981 327.399 Amount Cisatracurium 200 mg In 107.016 92.984 159.023 Sodium Chloride 0.9% 180 ml @ 2 MCG/KG/MIN 10.92 mls/hr IV .[id number] [facility] Rx #:[id number] propofoL 1,000 mg In 221.806 196.997 168.376 Empty Bag 1 bag @ Titrate IV .Q0M [facility] Rx#: [id number] Tube Feeding 348 348 348 Other 90 150 90 Output: Urine 755 570 565 Other: Voiding Method Indwelling Catheter Indwelling Catheter Indwelling Catheter ABP, PAP, CO, CI - Last Documented Arterial Blood Pressure 122/60 - Exam Gen. appearance, No acute distress, sedated and paralyzed, with an orally placed endotracheal tube and NG tube. HEENT examination is grossly unremarkable. Neck supple. Full range of motion. No adenopathy thyromegaly or neck vein distention. Cardiac exam revealed the PMI to be normally situated and sized. The rhythm was regular and no extrasystoles were noted during several minutes of auscultation. The first and second heart sounds were normal and physiologic splitting of the second heart sound was noted. There were no murmurs, rubs, clicks, or gallops. Lungs reveal use bilateral rhonchi. No wheezes or crackles. Breath sounds equal. Saturations 93%. Abdominal exam revealed normal bowel sounds. The abdomen was soft, non-tender, and without masses, organomegaly, or appreciable enlargement of the abdominal aorta. Extremities are intact. No cyanosis clubbing or edema. Skin is without rash or lesion. Neurologic examination cannot be adequately assessed as the patient's currently sedated and paralyzed. - Labs CBC & Chem 7: 08/08/21 03:30 08/08/21 03:30 Labs: Abnormal Lab Results - Last 24 Hours (Table) 08/07/21 08/07/21 08/07/21 Range/Units 03:30 03:30 03:30 WBC (3.8-10.6) k/uL RBC (3.80-5.40) m/uL Plt Count (150-450) k/uL Neutrophils # (1.3-7.7) k/uL Lymphocytes # (1.0-4.8) k/uL Fibrinogen 612 H (200-500) mg/dL ABG pO2 (83-108) mmHg ABG HCO3 (21-25) mmol/L ABG Total CO2 (19-24) mmol/L ABG O2 Saturation (94-97) % Chloride (98-107) mmol/L Glucose (74-99) mg/dL POC Glucose (mg/dL) (75-99) mg/dL Hemoglobin A1c 8.4 H (4.0-6.0) % Calcium (8.4-10.2) mg/dL Procalcitonin (0.02-0.09) ng/mL Free T4 0.51 L (0.78-2.19) ng/dL 08/07/21 08/07/21 08/07/21 Range/Units 03:30 07:58 11:36 WBC (3.8-10.6) k/uL RBC (3.80-5.40) m/uL Plt Count (150-450) k/uL Neutrophils # (1.3-7.7) k/uL Lymphocytes # (1.0-4.8) k/uL Fibrinogen (200-500) mg/dL ABG pO2 (83-108) mmHg ABG HCO3 (21-25) mmol/L ABG Total CO2 (19-24) mmol/L ABG O2 Saturation (94-97) % Chloride (98-107) mmol/L Glucose (74-99) mg/dL POC Glucose (mg/dL) 196 H 202 H (75-99) mg/dL Hemoglobin A1c (4.0-6.0) % Calcium (8.4-10.2) mg/dL Procalcitonin 0.34 H (0.02-0.09) ng/mL Free T4 (0.78-2.19) ng/dL 08/07/21 08/07/21 08/08/21 Range/Units 16:03 20:44 00:17 WBC (3.8-10.6) k/uL RBC (3.80-5.40) m/uL Plt Count (150-450) k/uL Neutrophils # (1.3-7.7) k/uL Lymphocytes # (1.0-4.8) k/uL Fibrinogen (200-500) mg/dL ABG pO2 (83-108) mmHg ABG HCO3 (21-25) mmol/L ABG Total CO2 (19-24) mmol/L ABG O2 Saturation (94-97) % Chloride (98-107) mmol/L Glucose (74-99) mg/dL POC Glucose (mg/dL) 232 H 175 H 155 H (75-99) mg/dL Hemoglobin A1c (4.0-6.0) % Calcium (8.4-10.2) mg/dL Procalcitonin (0.02-0.09) ng/mL Free T4 (0.78-2.19) ng/dL 08/08/21 08/08/21 08/08/21 Range/Units 03:30 03:30 03:33 WBC 13.3 H (3.8-10.6) k/uL RBC 3.72 L (3.80-5.40) m/uL Plt Count 140 L (150-450) k/uL Neutrophils # 12.3 H (1.3-7.7) k/uL Lymphocytes # 0.5 L (1.0-4.8) k/uL Fibrinogen (200-500) mg/dL ABG pO2 (83-108) mmHg ABG HCO3 (21-25) mmol/L ABG Total CO2 (19-24) mmol/L ABG O2 Saturation (94-97) % Chloride 113 H (98-107) mmol/L Glucose 198 H (74-99) mg/dL POC Glucose (mg/dL) 184 H (75-99) mg/dL Hemoglobin A1c (4.0-6.0) % Calcium 8.2 L (8.4-10.2) mg/dL Procalcitonin (0.02-0.09) ng/mL Free T4 (0.78-2.19) ng/dL 08/08/21 Range/Units 05:19 WBC (3.8-10.6) k/uL RBC (3.80-5.40) m/uL Plt Count (150-450) k/uL Neutrophils # (1.3-7.7) k/uL Lymphocytes # (1.0-4.8) k/uL Fibrinogen (200-500) mg/dL ABG pO2 61 L (83-108) mmHg ABG HCO3 26 H (21-25) mmol/L ABG Total CO2 27 H (19-24) mmol/L ABG O2 Saturation 92.5 L (94-97) % Chloride (98-107) mmol/L Glucose (74-99) mg/dL POC Glucose (mg/dL) (75-99) mg/dL Hemoglobin A1c (4.0-6.0) % Calcium (8.4-10.2) mg/dL Procalcitonin (0.02-0.09) ng/mL Free T4 (0.78-2.19) ng/dL Microbiology - Last 24 Hours (Table) 08/04/21 13:50 Blood Culture - Preliminary Blood No Growth after 72 hours 08/04/21 13:40 Blood Culture - Preliminary Blood No Growth after 72 hours 08/05/21 21:15 Gram Stain - Preliminary Sputum Sputum Culture - Preliminary Moraxella(branhamella) catarra Assessment and Plan Plan: 1 Acute hypoxemic respiratory failure secondary to coronavirus associated pneumonia, status post intubation and mechanical ventilation on 08/05/2021. The patient is currently on a combination of Decadron 6 mg IV every 24 hours and Baricitinib per protocol. Noted the patient is also on Lovenox for DVT prophyl axis. Doppler of the lower extremities been negative. Chest x-ray diffuse bilateral pulmonary infiltrates consistent with COVID-19 related pneumonia. Superinfection is possible although considered to be less likely. Pro calcitonin level is low. Chest x-ray was noted. Blood gases was noted. The patient is sedated and paralyzed. 2 ARDS secondary to COVID 19 related pneumonia. The patient's lungs are extremely noncompliant with elevated peak and static pressure 3 Moraxella catarrhalis in the sputum, not clear of true infection. Procal level remains low range to 0.3 and 0.4 4 Elevated inflammatory marker secondary to coronavirus infection. Note that inflammatory markers of been improving 5 History of essential hypertension. 6 History of hyperlipidemia. 7 History of diabetes mellitus. 8 History of hypothyroidism, not well controlled. Plan: Continue ventilator support and drop the tidal volume down to 350 mL Monitor peak and static pressures Stop the Baricitinib for now and the patient on IV Rocephin 1 g every 24 hours. Meanwhile, repeated Pro calcitonin level and repeat a sputum Gram stain and culture Continue Decadron Keep the patient sedated and paralyzed for now Continue enteral feeding for nutritional support IV fluids to KVO Give the patient dose of Lasix 40 mg IV push. She has been a significant volume overload and weight is higher Recheck inflammatory markers and blood gas for tomorrow including D-dimer for tomorrow, and the latest level was less than was at 0.75 Condition is critical. Family will be updated on her condition. I'll comes obviously poor because of severe pneumonia related to COVID 19 in addition to ARDS. We'll continue to follow. There is a critically care evaluation that was performed and more than 30 minutes Time with Patient: Greater than 30
--- NOTE | 2021-08-08 09:20 | XR ---
EXAMINATION TYPE: XR chest 1V portable DATE OF EXAM: 08/08/2021 COMPARISON: 08/07/2021 HISTORY: Tube placement TECHNIQUE: Single frontal view of the chest is obtained. FINDINGS: ET and NG tube stable. Left-sided central line stable. Bilateral airspace disease and inte rstitial changes are noted. Tiny right-sided pleural effusion. Heart size normal. No pneumothorax. IMPRESSION: Patchy bilateral infiltrate with diffuse interstitial pattern correlate for interstitial pneumonitis or CHF.
[2021-08-08] MEDS: CHLORHEXIDINE GLUCONATE 15 ML CUP MUCOUS MEM SCH ×2 (09:27→20:12)
[2021-08-08] MEDS: DEXAMETHASONE SOD PHOSPHATE 10 MG/ML 1 ML VIAL IVP SCH (09:27)
[2021-08-08] MEDS: ENOXAPARIN 40 MG/0.4 ML SYRINGE SQ SCH (09:27)
[2021-08-08] MEDS: ZINC SULFATE 220 MG CAP PO SCH (09:27)
[2021-08-08] MEDS: CHOLECALCIFEROL 125 MCG (5000 IU) TABLET PO SCH (09:28)
[2021-08-08] MEDS: ASCORBIC ACID 500 MG TAB PO SCH (09:28)
[2021-08-08 09:30] LABS: Glucose,Whole Blood 195 mg/dL (75-99)
[2021-08-08 11:41] LABS: Glucose,Whole Blood 238 mg/dL (75-99)
[2021-08-08 13:15] LABS: ABG Base Excess 3.9 mmol/L; ABG HCO3 30 mmol/L (21-25); ABG Oxygen Saturation 94.4 % (94-97); ABG PCO2 59 mmHg (35-45); ABG PH 7.32 (7.35-7.45); ABG PO2 73 mmHg (83-108); ABG TCO2 32 mmol/L (19-24); Allen Test Performed? Yes
[2021-08-08] MEDS: KETOROLAC 30 MG/ML 1 ML VIAL IVP PRN (13:35)
[2021-08-08 15:14] LABS: Glucose,Whole Blood 248 mg/dL (75-99)
[2021-08-08] MEDS: INSULIN DETEMIR (LEVEMIR) 100 UNIT/ML SYR SQ SCH (16:49)
[2021-08-08 20:25] LABS: Glucose,Whole Blood 179 mg/dL (75-99)
[2021-08-09] MEDS: ALBUTEROL HFA INHALER INHALATION SCH ×7 (00:01→23:23)
[2021-08-09 00:52] LABS: Glucose,Whole Blood 196 mg/dL (75-99)
[2021-08-09] MEDS: INSULIN ASPART (NovoLOG) 100 UNIT/ML VIAL SQ SCH ×6 (00:56→20:18)
[2021-08-09] MEDS: ARTIFICIAL TEARS-HYPROMELLOSE DROPS 15 ML BTL BOTH EYES SCH ×7 (00:57→23:44)
[2021-08-09 05:01] LABS: Glucose,Whole Blood 173 mg/dL (75-99)
[2021-08-09 05:35] LABS: ABG Base Excess 4.2 mmol/L; ABG HCO3 31 mmol/L (21-25); ABG Oxygen Saturation 95.1 % (94-97); ABG PCO2 66 mmHg (35-45); ABG PH 7.28 (7.35-7.45); ABG PO2 79 mmHg (83-108); ABG TCO2 33 mmol/L (19-24); Allen Test Performed? Yes
[2021-08-09 05:38] LABS: Basophils % (A) 0 %; Eosinophils # (A) 0.1 k/uL (0-0.7); Eosinophils % (A) 1 %; HCT 36.9 % (34.0-46.0); HGB 12.3 gm/dL (11.4-16.0); Lymphocytes # (A) 0.5 k/uL (1.0-4.8); Lymphocytes % (A) 4 %; MCH 30.9 pg (25.0-35.0); MCHC 33.3 g/dL (31.0-37.0); MCV 92.7 fL (80.0-100.0); Mean Platelet Volume 9.2; Monocytes # (A) 0.3 k/uL (0-1.0); Monocytes % (A) 2 %; Neutrophils # (A) 13.2 k/uL (1.3-7.7); Neutrophils % (A) 93 %; Platelet Count 162 k/uL (150-450); RBC 3.98 m/uL (3.80-5.40); RDW 13.9 % (11.5-15.5); WBC 14.3 k/uL (3.8-10.6)
[2021-08-09 05:54] LABS: ALT 85 U/L (4-34); AST 45 U/L (14-36); African American GFR (CKD) >90 (>60 ml/min/1.73 sqM); Albumin 2.4 g/dL (3.5-5.0); Alkaline Phosphatase 171 U/L (38-126); Anion Gap 5 mmol/L; Blood Urea Nitrogen 21 mg/dL (7-17); Carbon Dioxide 28 mmol/L (22-30); Chloride 107 mmol/L (98-107); Glucose 186 mg/dL (74-99); LDH 606 U/L (313-618); Magnesium 1.9 mg/dL (1.6-2.3); Non-African American GFR(CKD) 89 (>60 ml/min/1.73 sqM); Potassium 4.4 mmol/L (3.5-5.1); Sodium 140 mmol/L (137-145); Total Bilirubin 0.4 mg/dL (0.2-1.3); Total Protein 5.2 g/dL (6.3-8.2)
[2021-08-09 05:58] LABS: INR 0.9 (<1.2); Prothrombin Time 9.9 sec (9.0-12.0)
[2021-08-09 06:06] LABS: C Reactive Protein 21.2 mg/dL (<1.0)
[2021-08-09] MEDS: LEVOTHYROXINE 100 MCG TAB OG-TUBE SCH (07:07)
[2021-08-09] MEDS: INSULIN DETEMIR (LEVEMIR) 100 UNIT/ML SYR SQ SCH ×2 (07:07→20:14)
[2021-08-09] MEDS: KETOROLAC 30 MG/ML 1 ML VIAL IVP PRN (07:10)
[2021-08-09 07:37] LABS: Partial Thromboplastin Time 20.7 sec (22.0-30.0)
--- NOTE | 2021-08-09 08:03 | P.PN ---
Subjective Progress Note Date: 08/09/21 This is a 76-year-old female patient who presented to us on 08/04/2021 for shortness of breath and hypoxemia. The patient tested positive COVID-19 on 07/30/2021. Noted the patient was feeling sick prior to that. She was initially on a BiPAP for support as the patient was quite hypoxic. Her comorbid conditions included diabetes mellitus, hypertension, hypothyroidism and hyperlipidemia. Chest x-ray also showed elevation of the right hemidiaphragm along with diffuse bilateral airspace disease consistent with COVID-19 related pneumonia. Within a few days of admission, the patient decompensated and the patient to be intubated and placed on mechanical ventilator. The patient was intubated on 08/05/2021 and the patient remains intubated, sedated, paralyzed this point in time. Note that the patient is an assist-control mode of mechanical ventilation at the rate of 26 with a tidal volume of 400 and FiO2 of 80% with a PEEP of 20. Chest x-ray was noted. Blood gases was noted. The patient remains on propofol running at 40 mcg/kg per minute and the patient is also Nimbex at 1.5 mcg/kg per minute. Normal saline is running at the rate of 80 mL an hour and the patient is also on enteral feeding for nutritional support with vitamin AF at the rate of 29 mL an hour, goal. Inflammatory markers were modestly elevated with an LDH of 847, CRP of 18.7 from yesterday. Chest x-ray was consistent with diffuse bilateral pulmonary infiltrates. Sputum return to vendor to be positive for Moraxella catarrhalis and the patient's pro calcitonin level was at 0.34. At this point in time, the patient is on Baricitinib was started on 08/05/2021 in addition to Decadron 6 mg IV every 24 hours. The patient is also on Lovenox 40 mg subcu for DVT prophylaxis. No antibiotic coverage is offered to this patient this point in time. The white cell count from yesterday was elevated at 15. The patient also had a consent form and of mild transaminitis. Inflammatory markers have been gradually improving. Note that the patient from yesterday was down to 847, troponins are negative, TSH wasn't 8.3 with a free T4 of 0.51. The pro calcitonin on several occasions was checked and it remained at 0.3 and 0.4 range. On today's evaluation of 08/08/2021, the patient remains essentially on the same ventilator setting. The patient is on a assist-control mode at the rate of 26 with a tidal volume 400 and FiO2 of 65% with a PEEP of 20. Peak airway pressure is 46, static airway pressures around 45. The blood gases from today shows a pH of 7.39 with a pCO2 of 42 and pO2 of 16 1. Chest x- ray showed diffuse bilateral pulmonary infiltrates. ET tube is in a good location. Orogastric tube is in a good location. The patient also has a triple-lumen catheter in the subclavian vein on the left. In comparison to yesterday's chest x-ray, there is no major interval change. In terms of his blood work, no significant abnormalities noted, inflammatory markers were not checked today, the white cell count is at 15.3 and the patient is afebrile. 08/09/2021, I am seeing the patient for a follow-up. As mentioned earlier, the patient is a simple COVID 19 related pneumonia with secondary respiratory failure and ARDS and the patient is currently intubated, on a mechanical ventilator. On today's evaluation, the patient remains sedated and the patient is currently on propofol running at 45 mcg/kg per minute. The patient is also on Nimbex at 1.5 respiratory per minute pH is adequately sedated and paralyzed. The patient is an assist-control mode of mechanical ventilation. Her current respiratory rate is at 26 with a tidal volume of 350 and the patient's FiO2 is currently at 65% with a PEEP of 20. The chest x-ray still showing pulmonary infiltrates most on the lower lobes. No evidence of any pneumothorax. ET tube is in a good location. The patient has a left subclavian triple-lumen catheter in place. On yesterday's evaluation, I eliminated the Baricitinib as the patient had Moraxella catarrhalis in the sputum. I added IV Rocephin. I kept the patient on Decadron. No new cultures are available for now. The white cell count is at 14. D-dimer is low at 0.7. The LDH level is o n the decline and is currently down to 606 and a CRP level is at 21. Rest of the blood work and electrolytes are all within normal limits. The patient is afebrile. The patient is receiving enteral feeding for nutritional support. Currently the patient is on vitamin AF at the rate of 29 mL an hour and the patient shows no abdominal distention. She is stooling. The peak airway pressure today was 39 and the static airway pressure was 37 and this is improved as the patient was given a lower tidal volume yesterday and the ventilator changes were done accordingly. She was given a dose of Lasix yesterday and following that the patient had adequate diuresis and the patient despite that is still in a positive fluid balance. I'm going to give her another dose of Lasix 40 mg IV push every 122 doses. Objective - Vital Signs Vital signs: Vital Signs Temp 98.3 F 08/09/21 04:00 Pulse 81 08/09/21 07:00 Resp 26 H 08/09/21 07:00 BP 132/72 08/09/21 07:00 Pulse Ox 93 L 08/09/21 07:00 Intake & Output 08/08/21 08/09/21 08/09/21 18:59 06:59 18:59 Intake Total 910.061 2542.787 52 Output Total 1230 345 35 Balance -333.000 759.787 17 Intake: IV 276 276 23 Pressure bag 36 36 3 Sodium Chloride 0.9% 1, 240 240 20 000 ml @ 20 mls/hr IV . Q24H [facility] Rx#:[id number] Intake, IV Titration 300.000 390.787 Amount Cisatracurium 200 mg In 139.776 Sodium Chloride 0.9% 180 ml @ 2 MCG/KG/MIN 10.92 mls/hr IV .[id number] [facility] Rx #:[id number] propofoL 1,000 mg In 300.000 251.011 Empty Bag 1 bag @ Titrate IV .Q0M [facility] Rx#: [id number] Tube Feeding 261 348 29 Other 60 90 Output: Urine 1230 345 35 Other: Voiding Method Indwelling Catheter Indwelling Catheter ABP, PAP, CO, CI - Last Documented Arterial Blood Pressure 152/61 - Exam Gen. appearance, No acute distress, sedated and paralyzed, with an orally placed endotracheal tube and NG tube. HEENT examination is grossly unremarkable. Neck supple. Full range of motion. No adenopathy thyromegaly or neck vein distention. Cardiac exam revealed the PMI to be normally situated and sized. The rhythm was regular and no extrasystoles were noted during several minutes of auscultation. The first and second heart sounds were normal and physiologic splitting of the second heart sound was noted. There were no murmurs, rubs, clicks, or gallops. Lungs reveal use bilateral rhonchi. No wheezes or crackles. Breath sounds equal. Saturations 93%. Abdominal exam revealed normal bowel sounds. The abdomen was soft, non-tender, and without masses, organomegaly, or appreciable enlargement of the abdominal aorta. Extremities are intact. No cyanosis clubbing or edema. Skin is without rash or lesion. Neurologic examination cannot be adequately assessed as the patient's currently sedated and paralyzed. - Labs CBC & Chem 7: 08/09/21 05:00 08/09/21 05:00 Labs: Abnormal Lab Results - Last 24 Hours (Table) 08/08/21 08/08/21 08/08/21 Range/Units 09:29 11:40 13:07 WBC (3.8-10.6) k/uL Neutrophils # (1.3-7.7) k/uL Lymphocytes # (1.0-4.8) k/uL APTT (22.0-30.0) sec Fibrinogen (200-500) mg/dL D-Dimer (<0.60) mg/L FEU ABG pH 7.32 L (7.35-7.45) ABG pCO2 59 H (35-45) mmHg ABG pO2 73 L (83-108) mmHg ABG HCO3 30 H (21-25) mmol/L ABG Total CO2 32 H (19-24) mmol/L BUN (7-17) mg/dL Glucose (74-99) mg/dL POC Glucose (mg/dL) 195 H 238 H (75-99) mg/dL AST (14-36) U/L ALT (4-34) U/L Alkaline Phosphatase (38-126) U/L C-Reactive Protein (<1.0) mg/dL Total Protein (6.3-8.2) g/dL Albumin (3.5-5.0) g/dL 08/08/21 08/08/21 08/09/21 Range/Units 15:13 20:24 00:50 WBC (3.8-10.6) k/uL Neutrophils # (1.3-7.7) k/uL Lymphocytes # (1.0-4.8) k/uL APTT (22.0-30.0) sec Fibrinogen (200-500) mg/dL D-Dimer (<0.60) mg/L FEU ABG pH (7.35-7.45) ABG pCO2 (35-45) mmHg ABG pO2 (83-108) mmHg ABG HCO3 (21-25) mmol/L ABG Total CO2 (19-24) mmol/L BUN (7-17) mg/dL Glucose (74-99) mg/dL POC Glucose (mg/dL) 248 H 179 H 196 H (75-99) mg/dL AST (14-36) U/L ALT (4-34) U/L Alkaline Phosphatase (38-126) U/L C-Reactive Protein (<1.0) mg/dL Total Protein (6.3-8.2) g/dL Albumin (3.5-5.0) g/dL 08/09/21 08/09/21 08/09/21 Range/Units 05:00 05:00 05:00 WBC 14.3 H (3.8-10.6) k/uL Neutrophils # 13.2 H (1.3-7.7) k/uL Lymphocytes # 0.5 L (1.0-4.8) k/uL APTT 20.7 L (22.0-30.0) sec Fibrinogen 744 H (200-500) mg/dL D-Dimer 0.77 H (<0.60) mg/L FEU ABG pH (7.35-7.45) ABG pCO2 (35-45) mmHg ABG pO2 (83-108) mmHg ABG HCO3 (21-25) mmol/L ABG Total CO2 (19-24) mmol/L BUN 21 H (7-17) mg/dL Glucose 186 H (74-99) mg/dL POC Glucose (mg/dL) (75-99) mg/dL AST 45 H (14-36) U/L ALT 85 H (4-34) U/L Alkaline Phosphatase 171 H (38-126) U/L C-Reactive Protein 21.2 H (<1.0) mg/dL Total Protein 5.2 L (6.3-8.2) g/dL Albumin 2.4 L (3.5-5.0) g/dL 08/09/21 08/09/21 Range/Units 05:00 05:31 WBC (3.8-10.6) k/uL Neutrophils # (1.3-7.7) k/uL Lymphocytes # (1.0-4.8) k/uL APTT (22.0-30.0) sec Fibrinogen (200-500) mg/dL D-Dimer (<0.60) mg/L FEU ABG pH 7.28 L (7.35-7.45) ABG pCO2 66 H (35-45) mmHg ABG pO2 79 L (83-108) mmHg ABG HCO3 31 H (21-25) mmol/L ABG Total CO2 33 H (19-24) mmol/L BUN (7-17) mg/dL Glucose (74-99) mg/dL POC Glucose (mg/dL) 173 H (75-99) mg/dL AST (14-36) U/L ALT (4-34) U/L Alkaline Phosphatase (38-126) U/L C-Reactive Protein (<1.0) mg/dL Total Protein (6.3-8.2) g/dL Albumin (3.5-5.0) g/dL Microbiology - Last 24 Hours (Table) 08/04/21 13:50 Blood Culture - Preliminary Blood No Growth after 96 hours 08/04/21 13:40 Blood Culture - Preliminary Blood No Growth after 96 hours 08/05/21 21:15 Gram Stain - Final Sputum Sputum Culture - Final Moraxella(branhamella) catarra Assessment and Plan Plan: 1 Acute hypoxemic respiratory failure secondary to coronavirus associated pneumonia, status post intubation and mechanical ventilation on 08/05/2021. The patient is currently on a combination of Decadron 6 mg IV every 24 hours and Baricitinib per protocol. Noted the patient is also on Lovenox for DVT prophylaxis. Doppler of the lower extremities been negative. Chest x-ray diffuse bilateral pulmonary infiltrates consistent with COVID-19 related pneumonia. Superinfection is possible although considered to be less likely. Pro calcitonin level is low. Chest x-ray was noted. Blood gases was noted. The patient is sedated and paralyzed. We will continue with permissive hypercapnia and low tidal volume ventilation. Peak and static pressures are improved compared to yesterday. Chest x-ray findings and essentially unchanged. Blood gas is stable. The patient is currently off Baricitinib. 2 ARDS secondary to COVID 19 related pneumonia. The patient's lungs are extremely noncompliant with elevated peak and static pressure 3 Moraxella catarrhalis in the sputum, not clear of true infection. Procal level remains low range to 0.3 and 0.4 4 Elevated inflammatory marker secondary to coronavirus infection. Note that inflammatory markers of been improving 5 History of essential hypertension. 6 History of hyperlipidemia. 7 History of diabetes mellitus. 8 History of hypothyroidism, not well controlled. Plan: Continue ventilator support and drop the tidal volume down to 325 mL, drop the FiO2 down to 60% and keep the PEEP at 20 Monitor peak and static pressures Continue Decadron Keep the patient sedated and paralyzed for now, consider a paralytic holiday at a later stage Continue enteral feeding for nutritional support IV fluids to KVO Give the patient dose of Lasix 40 mg IV push q12 x2 Recheck inflammatory markers showed improvement in the markers Condition is critical. Family will be updated on her condition. I'll comes obviously poor because of severe pneumonia related to COVID 19 in addition to ARDS. We'll continue to follow. There is a critically care evaluation that was performed and more than 30 minutes Time with Patient: Greater than 30
--- NOTE | 2021-08-09 08:08 | XR ---
EXAMINATION TYPE: XR chest 1V portable DATE OF EXAM: 08/09/2021 COMPARISON: 08/08/2020 HISTORY: Tube placement TECHNIQUE: Single frontal view of the chest is obtained. FINDINGS: ET and NG tube stable. Left-sided central line stable. Bilateral airspace disease and inte rstitial changes are noted. Tiny right-sided pleural effusion. Heart size normal. No pneumothorax. IMPRESSION: Patchy bilateral infiltrate with diffuse interstitial pattern correlate for interstitial pneumonitis or CHF.
[2021-08-09] MEDS: ENOXAPARIN 40 MG/0.4 ML SYRINGE SQ SCH (09:00)
[2021-08-09] MEDS: ZINC SULFATE 220 MG CAP PO SCH (09:00)
[2021-08-09] MEDS: ASCORBIC ACID 500 MG TAB PO SCH (09:00)
[2021-08-09] MEDS: DEXAMETHASONE SOD PHOSPHATE 10 MG/ML 1 ML VIAL IVP SCH (09:01)
[2021-08-09] MEDS: FUROSEMIDE 10 MG/ML 4 ML VIAL IV SCH ×2 (09:01→19:51)
[2021-08-09] MEDS: CHLORHEXIDINE GLUCONATE 15 ML CUP MUCOUS MEM SCH ×2 (09:10→19:51)
[2021-08-09 11:48] LABS: Glucose,Whole Blood 217 mg/dL (75-99)
[2021-08-09 12:42] LABS: ABG Base Excess 5.8 mmol/L; ABG HCO3 33 mmol/L (21-25); ABG Oxygen Saturation 95.2 % (94-97); ABG PH 7.25 (7.35-7.45); ABG PO2 81 mmHg (83-108); ABG TCO2 35 mmol/L (19-24); Allen Test Performed? Yes
[2021-08-09 12:45] LABS: ABG PCO2 75 mmHg (35-45)
--- NOTE | 2021-08-09 14:23 | P.PN ---
Subjective Progress Note Date: 08/09/21 This is a 76-year-old female who presented to emergency room with cough, congestion, dyspnea and weakness and fatigue over several weeks. Approximately week ago patient took a home Covid test which indicated that she was positive. She has not received Covid vaccine or treatment for the positive Covid test. When symptoms worsened she decided to present to the ER for evaluation and treatment. She was initially placed on BiPAP in the intensive care unit and subsequently been intubated. She is currently paralyzed with cisatracurium, sedated with propofol and utilizing Toradol IV push for pain management. Currently mechanically ventilated on 80% FiO2. Patient is afebrile 96.9, respiratory rate of 26, blood pressure is stable at 109/51, maintain oxygen saturation of 90% and entitle CO2 of 28. Most recent set of vital signs WC count of 15.5, hematocrit of 35.6, hemoglobin 12.0, platelet count 119. Chemistry panel reveals a sodium 138, potassium 3.8, BUN of 19, creatinine 0.72, GFR 83, AST of 99, ELT 106, alk phos 131, LDH 847. TSH of 8.37. T4 0.5, pro- calcitonin 0.34 08/08/2021 remains mechanical ventilator-dependent, FiO2 decreased to 65%, PEEP remains at 20. Continues on Nimbex and diprovan drips. Chest x-ray reported patchy bilateral infiltrate with diffuse interstitial pattern, tiny right-sided pleural effusion, received Lasix. Maintained on Rocephin, Covid cocktail with Ba ricitinib discontinued. Blood sugars elevated. Afebrile, WBC 13.3. Pro- calcitonin 0.34. Objective - Vital Signs Vital signs: Vital Signs Temp 98.3 F 08/08/21 16:00 Pulse 77 08/08/21 17:00 Resp 26 H 08/08/21 17:00 BP 128/72 08/08/21 17:00 Pulse Ox 92 L 08/08/21 17:00 Intake & Output 08/07/21 08/08/21 08/08/21 18:59 06:59 18:59 Intake Total 3470.013 4091.399 845.000 Output Total 755 500 8937 Balance 5805.138 9942.399 -375.000 Weight 97.2 kg 94 kg Intake: IV 996 996 253 Pressure bag 36 36 33 Sodium Chloride 0.9% 1, 960 960 220 000 ml @ 20 mls/hr IV . Q24H [facility] Rx#:[id number] Intake, IV Titration 289.981 327.399 300.000 Amount Cisatracurium 200 mg In 92.984 159.023 Sodium Chloride 0.9% 180 ml @ 2 MCG/KG/MIN 10.92 mls/hr IV .[id number] [facility] Rx #:[id number] propofoL 1,000 mg In 196.997 168.376 300.000 Empty Bag 1 bag @ Titrate IV .Q0M [facility] Rx#: [id number] Tube Feeding 348 348 232 Other 150 90 60 Output: Urine 672 484 5076 Other: Voiding Method Indwelling Catheter Indwelling Catheter Indwelling Catheter ABP, PAP, CO, CI - Last Documented Arterial Blood Pressure 121/54 - Exam - Exam GENERAL: Elderly female, currently intubated, sedated and paralyzed Neck: Supple without lymphadenopathy or JVD, no thyromegaly Lungs: Breath sounds coarse rhonchi bilaterally and mechanically ventilated Heart: Regular rate and rhythm without murmurs, rubs or gallops. S1-S2 normal Abdomen: Soft, nontender, normoactive bowel sounds. No guarding or rebound. No masses appreciated Extremities: No pitting or edema. No clubbing or cyanosis Neurological: Sedated Skin: Warm, dry, normal turgor, no rashes noted - Labs CBC & Chem 7: 08/09/21 05:00 08/09/21 05:00 Labs: Abnormal Lab Results - Last 24 Hours (Table) 08/07/21 08/08/21 08/08/21 Range/Units 20:44 00:17 03:30 WBC 13.3 H (3.8-10.6) k/uL RBC 3.72 L (3.80-5.40) m/uL Plt Count 140 L (150-450) k/uL Neutrophils # 12.3 H (1.3-7.7) k/uL Lymphocytes # 0.5 L (1.0-4.8) k/uL ABG pH (7.35-7.45) ABG pCO2 (35-45) mmHg ABG pO2 (83-108) mmHg ABG HCO3 (21-25) mmol/L ABG Total CO2 (19-24) mmol/L ABG O2 Saturation (94-97) % Chloride (98-107) mmol/L Glucose (74-99) mg/dL POC Glucose (mg/dL) 175 H 155 H (75-99) mg/dL Calcium (8.4-10.2) mg/dL 08/08/21 08/08/21 08/08/21 Range/Units 03:30 03:33 05:19 WBC (3.8-10.6) k/uL RBC (3.80-5.40) m/uL Plt Count (150-450) k/uL Neutrophils # (1.3-7.7) k/uL Lymphocytes # (1.0-4.8) k/uL ABG pH (7.35-7.45) ABG pCO2 (35-45) mmHg ABG pO2 61 L (83-108) mmHg ABG HCO3 26 H (21-25) mmol/L ABG Total CO2 27 H (19-24) mmol/L ABG O2 Saturation 92.5 L (94-97) % Chloride 113 H (98-107) mmol/L Glucose 198 H (74-99) mg/dL POC Glucose (mg/dL) 184 H (75-99) mg/dL Calcium 8.2 L (8.4-10.2) mg/dL 08/08/21 08/08/21 08/08/21 Range/Units 09:29 11:40 13:07 WBC (3.8-10.6) k/uL RBC (3.80-5.40) m/uL Plt Count (150-450) k/uL Neutrophils # (1.3-7.7) k/uL Lymphocytes # (1.0-4.8) k/uL ABG pH 7.32 L (7.35-7.45) ABG pCO2 59 H (35-45) mmHg ABG pO2 73 L (83-108) mmHg ABG HCO3 30 H (21-25) mmol/L ABG Total CO2 32 H (19-24) mmol/L ABG O2 Saturation (94-97) % Chloride (98-107) mmol/L Glucose (74-99) mg/dL POC Glucose (mg/dL) 195 H 238 H (75-99) mg/dL Calcium (8.4-10.2) mg/dL 08/08/21 Range/Units 15:13 WBC (3.8-10.6) k/uL RBC (3.80-5.40) m/uL Plt Count (150-450) k/uL Neutrophils # (1.3-7.7) k/uL Lymphocytes # (1.0-4.8) k/uL ABG pH (7.35-7.45) ABG pCO2 (35-45) mmHg ABG pO2 (83-108) mmHg ABG HCO3 (21-25) mmol/L ABG Total CO2 (19-24) mmol/L ABG O2 Saturation (94-97) % Chloride (98-107) mmol/L Glucose (74-99) mg/dL POC Glucose (mg/dL) 248 H (75-99) mg/dL Calcium (8.4-10.2) mg/dL Microbiology - Last 24 Hours (Table) 08/04/21 13:50 Blood Culture - Preliminary Blood No Growth after 96 hours 08/04/21 13:40 Blood Culture - Preliminary Blood No Growth after 96 hours 08/05/21 21:15 Gram Stain - Final Sputum Sputum Culture - Final Moraxella(branhamella) catarra Assessment and Plan Assessment: Acute Covid pneumonia, sputum culture reporting Moraxella Catarrhalis Acute hypoxic respiratory failure secondary to the above, mechanical ventilator dependent ARDS secondary to acute COVID-19 pneumonia Diabetes mellitus type 2, hyperglycemic Hypothyroidism Essential hypertension Hyperlipidemia Plan: Continue on current medication regime ,monitoring and symptomatic treatment. Hyperglycemic, Lantus added to med regimen with close monitoring of Accu-Cheks. Maintain covid cocktail. ICU management as per candy butcher. Prognosis guarded given multiple complex medical issues. The impression and plan of care has been dictated as directed. : I performed a history and examination of this patient, discussed the same with the dictator. I agree with the dictator's note ,documented as a scribe. Any additional findings or plans will be noted.
--- NOTE | 2021-08-09 14:51 | P.PN ---
Subjective Progress Note Date: 08/09/21 This is a 76-year-old female who presented to emergency room with cough, congestion, dyspnea and weakness and fatigue over several weeks. Approximately week ago patient took a home Covid test which indicated that she was positive. She has not received Covid vaccine or treatment for the positive Covid test. When symptoms worsened she decided to present to the ER for evaluation and treatment. She was initially placed on BiPAP in the intensive care unit and subsequently been intubated. She is currently paralyzed with cisatracurium, sedated with propofol and utilizing Toradol IV push for pain management. Currently mechanically ventilated on 80% FiO2. Patient is afebrile 96.9, respiratory rate of 26, blood pressure is stable at 109/51, maintain oxygen saturation of 90% and entitle CO2 of 28. Most recent set of vital signs WC count of 15.5, hematocrit of 35.6, hemoglobin 12.0, platelet count 119. Chemistry panel reveals a sodium 138, potassium 3.8, BUN of 19, creatinine 0.72, GFR 83, AST of 99, ELT 106, alk phos 131, LDH 847. TSH of 8.37. T4 0.5, pro- calcitonin 0.34 08/08/2021 remains mechanical ventilator-dependent, FiO2 decreased to 65%, PEEP remains at 20. Continues on Nimbex and diprovan drips. Chest x-ray reported patchy bilateral infiltrate with diffuse interstitial pattern, tiny right-sided pleural effusion, received Lasix. Maintained on Rocephin (Moraxella catarrhalis in the sputum) , Covid cocktail with Baricitinib discontinued. Blood sugars elevated. Afebrile, WBC 13.3. Pro-calcitonin 0.34. 08/09/2021 continues on FiO2 65% with PEEP of 20, Nimbex and diprovan drips. Chest x-ray reporting persistent patchy bilateral infiltrate with diffuse interstitial pattern. Received additional Lasix today Blood sugars elevated, improving, A1c 8.4. Afebrile, WBC 14.3. D-dimer 0.77, ferritin increased to 2512, LDH decreased to 606, CRP increased to 21.2. LFTs decreasing with the exception of alkaline phosphatase, increased to 171. ProBNP 453. Receiving tube feeds to call, tolerating well with minimal to no residuals, stooling. Objective - Vital Signs Vital signs: Vital Signs Temp 97.4 F L 08/09/21 12:00 Pulse 72 08/09/21 14:00 Resp 26 H 08/09/21 14:00 BP 121/66 08/09/21 14:00 Pulse Ox 94 L 08/09/21 14:00 Intake & Output 08/08/21 08/09/21 08/09/21 18:59 06:59 18:59 Intake Total 822.792 3996.787 606.563 Output Total 1230 345 775 Balance -333.000 759.787 -168.437 Weight 94 kg Intake: IV 276 276 161 Pressure bag 36 36 21 Sodium Chloride 0.9% 1, 240 240 140 000 ml @ 20 mls/hr IV . Q24H [facility] Rx#:[id number] Intake, IV Titration 300.000 390.787 226.563 Amount Cisatracurium 200 mg In 139.776 Sodium Chloride 0.9% 180 ml @ 2 MCG/KG/MIN 10.92 mls/hr IV .[id number] [facility] Rx #:[id number] cefTRIAXone 1 gm In 50 Sodium Chloride 0.9% 50 ml @ 100 mls/hr IVPB Q24HR [facility] Rx#:[id number] propofoL 1,000 mg In 300.000 251.011 176.563 Empty Bag 1 bag @ Titrate IV .Q0M [facility] Rx#: [id number] Tube Feeding 261 348 189 Other 60 90 30 Output: Urine 1230 345 775 Other: Voiding Method Indwelling Catheter Indwelling Catheter Indwelling Catheter ABP, PAP, CO, CI - Last Documented Arterial Blood Pressure 115/52 - Exam - Exam GENERAL: intubated, sedated and paralyzed, NAD Neck: Supple without lymphadenopathy or JVD, no thyromegaly Lungs: Breath sounds coarse rhonchi bilaterally and mechanically ventilated Heart: Regular rate and rhythm without murmurs, rubs or gallops. S1-S2 normal Abdomen: Soft, nontender, normoactive bowel sounds. No guarding or rebound. No masses appreciated Extremities: No pitting or edema. No clubbing or cyanosis Neurological: Sedated and paralyzed Skin: Warm, dry, normal turgor, no rashes noted - Labs CBC & Chem 7: 08/09/21 05:00 08/09/21 05:00 Labs: Abnormal Lab Results - Last 24 Hours (Table) 08/08/21 08/08/21 08/09/21 Range/Units 15:13 20:24 00:50 WBC (3.8-10.6) k/uL Neutrophils # (1.3-7.7) k/uL Lymphocytes # (1.0-4.8) k/uL APTT (22.0-30.0) sec Fibrinogen (200-500) mg/dL D-Dimer (<0.60) mg/L FEU ABG pH (7.35-7.45) ABG pCO2 (35-45) mmHg ABG pO2 (83-108) mmHg ABG HCO3 (21-25) mmol/L ABG Total CO2 (19-24) mmol/L BUN (7-17) mg/dL Glucose (74-99) mg/dL POC Glucose (mg/dL) 248 H 179 H 196 H (75-99) mg/dL Ferritin (10.0-291.0) ng/mL AST (14-36) U/L ALT (4-34) U/L Alkaline Phosphatase (38-126) U/L C-Reactive Protein (<1.0) mg/dL NT-Pro-B Natriuret Pep (0-450) pg/mL Total Protein (6.3-8.2) g/dL Albumin (3.5-5.0) g/dL Procalcitonin (0.02-0.09) ng/mL 08/09/21 08/09/21 08/09/21 Range/Units 05:00 05:00 05:00 WBC 14.3 H (3.8-10.6) k/uL Neutrophils # 13.2 H (1.3-7.7) k/uL Lymphocytes # 0.5 L (1.0-4.8) k/uL APTT 20.7 L (22.0-30.0) sec Fibrinogen 744 H (200-500) mg/dL D-Dimer 0.77 H (<0.60) mg/L FEU ABG pH (7.35-7.45) ABG pCO2 (35-45) mmHg ABG pO2 (83-108) mmHg ABG HCO3 (21-25) mmol/L ABG Total CO2 (19-24) mmol/L BUN (7-17) mg/dL Glucose (74-99) mg/dL POC Glucose (mg/dL) (75-99) mg/dL Ferritin (10.0-291.0) ng/mL AST (14-36) U/L ALT (4-34) U/L Alkaline Phosphatase (38-126) U/L C-Reactive Protein (<1.0) mg/dL NT-Pro-B Natriuret Pep (0-450) pg/mL Total Protein (6.3-8.2) g/dL Albumin (3.5-5.0) g/dL Procalcitonin 0.23 H (0.02-0.09) ng/mL 08/09/21 08/09/21 08/09/21 Range/Units 05:00 05:00 05:00 WBC (3.8-10.6) k/uL Neutrophils # (1.3-7.7) k/uL Lymphocytes # (1.0-4.8) k/uL APTT (22.0-30.0) sec Fibrinogen (200-500) mg/dL D-Dimer (<0.60) mg/L FEU ABG pH (7.35-7.45) ABG pCO2 (35-45) mmHg ABG pO2 (83-108) mmHg ABG HCO3 (21-25) mmol/L ABG Total CO2 (19-24) mmol/L BUN 21 H (7-17) mg/dL Glucose 186 H (74-99) mg/dL POC Glucose (mg/dL) 173 H (75-99) mg/dL Ferritin 2512.0 H (10.0-291.0) ng/mL AST 45 H (14-36) U/L ALT 85 H (4-34) U/L Alkaline Phosphatase 171 H (38-126) U/L C-Reactive Protein 21.2 H (<1.0) mg/dL NT-Pro-B Natriuret Pep 453 H (0-450) pg/mL Total Protein 5.2 L (6.3-8.2) g/dL Albumin 2.4 L (3.5-5.0) g/dL Procalcitonin (0.02-0.09) ng/mL 08/09/21 08/09/21 08/09/21 Range/Units 05:31 11:47 12:38 WBC (3.8-10.6) k/uL Neutrophils # (1.3-7.7) k/uL Lymphocytes # (1.0-4.8) k/uL APTT (22.0-30.0) sec Fibrinogen (200-500) mg/dL D-Dimer (<0.60) mg/L FEU ABG pH 7.28 L 7.25 L (7.35-7.45) ABG pCO2 66 H 75 H* (35-45) mmHg ABG pO2 79 L 81 L (83-108) mmHg ABG HCO3 31 H 33 H (21-25) mmol/L ABG Total CO2 33 H 35 H (19-24) mmol/L BUN (7-17) mg/dL Glucose (74-99) mg/dL POC Glucose (mg/dL) 217 H (75-99) mg/dL Ferritin (10.0-291.0) ng/mL AST (14-36) U/L ALT (4-34) U/L Alkaline Phosphatase (38-126) U/L C-Reactive Protein (<1.0) mg/dL NT-Pro-B Natriuret Pep (0-450) pg/mL Total Protein (6.3-8.2) g/dL Albumin (3.5-5.0) g/dL Procalcitonin (0.02-0.09) ng/mL Microbiology - Last 24 Hours (Table) 08/04/21 13:50 Blood Culture - Preliminary Blood No Growth after 96 hours 08/04/21 13:40 Blood Culture - Preliminary Blood No Growth after 96 hours 08/05/21 21:15 Gram Stain - Final Sputum Sputum Culture - Final Moraxella(branhamella) catarra Assessment and Plan Assessment: Acute Covid pneumonia, sputum culture reporting Moraxella Catarrhalis Acute hypoxic respiratory failure secondary to the above, mechanical ventilator dependent ARDS secondary to acute COVID-19 pneumonia Diabetes mellitus type 2, hyperglycemic, hemoglobin A1c 8.4 Hypothyroidism Essential hypertension Hyperlipidemia Plan: Continue on current medication regime ,monitoring and symptomatic treatment. Hyperglycemic, additional Lantus at bedtime added to med regimen with close monitoring of Accu-Cheks. Maintain covid cocktail. ICU management as per ingot passer. Prognosis guarded given multiple complex medical issues. The impression and plan of care has been dictated as directed. : I performed a history and examination of this patient, discussed the same with the dictator. I agree with the dictator's note ,documented as a scribe. Any additional findings or plans will be noted.
[2021-08-09 16:06] LABS: Glucose,Whole Blood 215 mg/dL (75-99)
[2021-08-09] MEDS: CHOLECALCIFEROL 125 MCG (5000 IU) TABLET PO SCH (16:08)
[2021-08-09] MEDS: SODIUM CHLORIDE 0.9% 1,000 ML IV SCH ×2 (16:12→19:48)
[2021-08-09] MEDS: CISATRACURIUM 200 MG in SODIUM CHLORIDE 0.9% 180 ML IV SCH (19:48)
[2021-08-09 20:14] LABS: Glucose,Whole Blood 223 mg/dL (75-99)
[2021-08-10 00:09] LABS: Glucose,Whole Blood 174 mg/dL (75-99)
[2021-08-10] MEDS: INSULIN ASPART (NovoLOG) 100 UNIT/ML VIAL SQ SCH ×8 (00:15→23:17)
[2021-08-10] MEDS: ALBUTEROL HFA INHALER INHALATION SCH ×5 (03:21→19:18)
[2021-08-10] MEDS: ARTIFICIAL TEARS-HYPROMELLOSE DROPS 15 ML BTL BOTH EYES SCH ×6 (03:27→23:17)
[2021-08-10 03:32] LABS: Glucose,Whole Blood 119 mg/dL (75-99)
[2021-08-10 04:30] LABS: HCT 36.8 % (34.0-46.0); HGB 12.2 gm/dL (11.4-16.0); MCH 30.7 pg (25.0-35.0); MCHC 33.1 g/dL (31.0-37.0); MCV 92.8 fL (80.0-100.0); Mean Platelet Volume 9.1; Platelet Count 202 k/uL (150-450); RBC 3.96 m/uL (3.80-5.40); RDW 13.9 % (11.5-15.5); WBC 12.7 k/uL (3.8-10.6)
[2021-08-10 04:35] LABS: Potassium 4.3 mmol/L (3.5-5.1)
[2021-08-10 04:36] LABS: African American GFR (CKD) >90 (>60 ml/min/1.73 sqM); Anion Gap 2 mmol/L; Blood Urea Nitrogen 24 mg/dL (7-17); Calcium 9.3 mg/dL (8.4-10.2); Carbon Dioxide 37 mmol/L (22-30); Chloride 103 mmol/L (98-107); Glucose 119 mg/dL (74-99); Non-African American GFR(CKD) 80 (>60 ml/min/1.73 sqM); Sodium 142 mmol/L (137-145)
[2021-08-10 05:05] LABS: Band Neutrophils % 17 %; Eosinophils # (M) 0.13 k/uL (0-0.7); Lymphocytes # (M) 0.13 k/uL (1.0-4.8); Metamyelocytes # (M) 0.51 k/uL (0); Metamyelocytes % 4 %; Monocytes # (M) 0.76 k/uL (0-1.0); Neutrophils % (M) 71 %; Nucleated Red Blood Cells 0 /100 WBC (0-0)
[2021-08-10 05:06] LABS: Total Cells Counted 200
[2021-08-10 05:07] LABS: Toxic Granulation Present
[2021-08-10 05:55] LABS: ABG Base Excess 11.3 mmol/L; ABG HCO3 37 mmol/L (21-25); ABG Oxygen Saturation 93.9 % (94-97); ABG PCO2 69 mmHg (35-45); ABG PH 7.34 (7.35-7.45); ABG PO2 68 mmHg (83-108); ABG TCO2 39 mmol/L (19-24); Allen Test Performed? Yes
[2021-08-10 06:00] LABS: Glucose,Whole Blood 109 mg/dL (75-99)
[2021-08-10] MEDS: INSULIN DETEMIR (LEVEMIR) 100 UNIT/ML SYR SQ SCH ×2 (06:04→20:38)
[2021-08-10] MEDS: LEVOTHYROXINE 100 MCG TAB OG-TUBE SCH (06:04)
--- NOTE | 2021-08-10 07:46 | P.PN ---
Subjective Progress Note Date: 08/10/21 This is a 76-year-old female patient who presented to us on 08/04/2021 for shortness of breath and hypoxemia. The patient tested positive COVID-19 on 07/30/2021. Noted the patient was feeling sick prior to that. She was initially on a BiPAP for support as the patient was quite hypoxic. Her comorbid conditions included diabetes mellitus, hypertension, hypothyroidism and hyperlipidemia. Chest x-ray also showed elevation of the right hemidiaphragm along with diffuse bilateral airspace disease consistent with COVID-19 related pneumonia. Within a few days of admission, the patient decompensated and the patient to be intubated and placed on mechanical ventilator. The patient was intubated on 08/05/2021 and the patient remains intubated, sedated, paralyzed this point in time. Note that the patient is an assist-control mode of mechanical ventilation at the rate of 26 with a tidal volume of 400 and FiO2 of 80% with a PEEP of 20. Chest x-ray was noted. Blood gases was noted. The patient remains on propofol running at 40 mcg/kg per minute and the patient is also Nimbex at 1.5 mcg/kg per minute. Normal saline is running at the rate of 80 mL an hour and the patient is also on enteral feeding for nutritional support with vitamin AF at the rate of 29 mL an hour, goal. Inflammatory markers were modestly elevated with an LDH of 847, CRP of 18.7 from yesterday. Chest x-ray was consistent with diffuse bilateral pulmonary infiltrates. Sputum insole lip turner to be positive for Moraxella catarrhalis and the patient's pro calcitonin level was at 0.34. At this point in time, the patient is on Baricitinib was started on 08/05/2021 in addition to Decadron 6 mg IV every 24 hours. The patient is also on Lovenox 40 mg subcu for DVT prophylaxis. No antibiotic coverage is offered to this patient this point in time. The white cell count from yesterday was elevated at 15. The patient also had a consent form and of mild transaminitis. Inflammatory markers have been gradually improving. Note that the patient from yesterday was down to 847, troponins are negative, TSH wasn't 8.3 with a free T4 of 0.51. The pro calcitonin on several occasions was checked and it remained at 0.3 and 0.4 range. On today's evaluation of 08/08/2021, the patient remains essentially on the same ventilator setting. The patient is on a assist-control mode at the rate of 26 with a tidal volume 400 and FiO2 of 65% with a PEEP of 20. Peak airway pressure is 46, static airway pressures around 45. The blood gases from today shows a pH of 7.39 with a pCO2 of 42 and pO2 of 16 1. Chest x- ray showed diffuse bilateral pulmonary infiltrates. ET tube is in a good location. Orogastric tube is in a good location. The patient also has a triple-lumen catheter in the subclavian vein on the left. In comparison to yesterday's chest x-ray, there is no major interval change. In terms of his blood work, no significant abnormalities noted, inflammatory markers were not checked today, the white cell count is at 15.3 and the patient is afebrile. 08/09/2021, I am seeing the patient for a follow-up. As mentioned earlier, the patient is a simple COVID 19 related pneumonia with secondary respiratory failure and ARDS and the patient is currently intubated, on a mechanical ventilator. On today's evaluation, the patient remains sedated and the patient is currently on propofol running at 45 mcg/kg per minute. The patient is also on Nimbex at 1.5 respiratory per minute pH is adequately sedated and paralyzed. The patient is an assist-control mode of mechanical ventilation. Her current respiratory rate is at 26 with a tidal volume of 350 and the patient's FiO2 is currently at 65% with a PEEP of 20. The chest x-ray still showing pulmonary infiltrates most on the lower lobes. No evidence of any pneumothorax. ET tube is in a good location. The patient has a left subclavian triple-lumen catheter in place. On yesterday's evaluation, I eliminated the Baricitinib as the patient had Moraxella catarrhalis in the sputum. I added IV Rocephin. I kept the patient on Decadron. No new cultures are available for now. The white cell count is at 14. D-dimer is low at 0.7. The LDH level is o n the decline and is currently down to 606 and a CRP level is at 21. Rest of the blood work and electrolytes are all within normal limits. The patient is afebrile. The patient is receiving enteral feeding for nutritional support. Currently the patient is on vitamin AF at the rate of 29 mL an hour and the patient shows no abdominal distention. She is stooling. The peak airway pressure today was 39 and the static airway pressure was 37 and this is improved as the patient was given a lower tidal volume yesterday and the ventilator changes were done accordingly. She was given a dose of Lasix yesterday and following that the patient had adequate diuresis and the patient despite that is still in a positive fluid balance. I'm going to give her another dose of Lasix 40 mg IV push every 122 doses. 08/10/2021, the patient is being seen for a follow-up. On today's evaluation, the patient remains sedated with propofol running at 50 mcg/kg per minute and the patient is also Nimbex at 1.5 mcg/kg/m. She remains on a mechanical ventilator. Some ventilator changes were done yesterday. The current tidal volume is down to 325 with a rate of 26 and a PEEP of 18 with an FiO2 of 60%. The peak airway pressures 35. The static pressures 30. Her chest x-ray remains unchanged. The blood gases showed a pH of 7.34 with a pCO2 of 69 and pO2 of 68. The patient is diuresis with IV Lasix yesterday and the neck fluid balance is - 710 mL over the past 24 hours. She is receiving enteral feeding for nutritional support. She hasn't had a bowel movement yet. The rest of the blood work from today is essentially benign. White cell count is at 3.9 with a hemoglobin of 12 and BUN is a 24 with a creatinine of 0.7 and the sodium level of 142. The patient remains on Decadron. The inflammatory markers were essentially on the decline. D-dimer, LDH and CRP were all at the lower level. No other significant events overnight. The patient is still vent dependent due to COVID 19 related pneumonia/ARDS. She is afebrile. She is hemodynamically stable. No other issues otherwise. Objective - Vital Signs Vital signs: Vital Signs Temp 99.1 F 08/10/21 04:00 Pulse 85 08/10/21 07:00 Resp 26 H 08/10/21 07:00 BP 139/70 08/10/21 07:00 Pulse Ox 92 L 08/10/21 07:00 Intake & Output 08/09/21 08/10/21 08/10/21 18:59 06:59 18:59 Intake Total 832.542 9709.767 45 Output Total 1085 1770 45 Balance -93.437 -617.233 0 Weight 94 kg 95 kg Intake: IV 276 276 23 Pressure bag 36 36 3 Sodium Chloride 0.9% 1, 240 240 20 000 ml @ 20 mls/hr IV . Q24H [facility] Rx#:[id number] Intake, IV Titration 326.563 574.767 Amount Cisatracurium 200 mg In 193.284 Sodium Chloride 0.9% 180 ml @ 2 MCG/KG/MIN 10.92 mls/hr IV .[id number] [facility] Rx #:[id number] cefTRIAXone 1 gm In 50 Sodium Chloride 0.9% 50 ml @ 100 mls/hr IVPB Q24HR [facility] Rx#:[id number] propofoL 1,000 mg In 276.563 381.483 Empty Bag 1 bag @ Titrate IV .Q0M [facility] Rx#: [id number] Tube Feeding 299 242 22 Other 90 60 Output: Urine 1085 1770 45 Other: Voiding Method Indwelling Catheter Indwelling Catheter ABP, PAP, CO, CI - Last Documented Arterial Blood Pressure 156/61 - Exam Gen. appearance, No acute distress, sedated and paralyzed, with an orally placed endotracheal tube and NG tube. HEENT examination is grossly unremarkable. Neck supple. Full range of motion. No adenopathy thyromegaly or neck vein distention. Cardiac exam revealed the PMI to be normally situated and sized. The rhythm was regular and no extrasystoles were noted during several minutes of auscultation. The first and second heart sounds were normal and physiologic splitting of the second heart sound was noted. There were no murmurs, rubs, clicks, or gallops. Lungs reveal use bilateral rhonchi. No wheezes or crackles. Breath sounds equal. Saturations 93%. Abdominal exam revealed normal bowel sounds. The abdomen was soft, non-tender, and without masses, organomegaly, or appreciable enlargement of the abdominal aorta. Extremities are intact. No cyanosis clubbing or edema. Skin is without rash or lesion. Neurologic examination cannot be adequately assessed as the patient's currently sedated and paralyzed. - Labs CBC & Chem 7: 08/10/21 04:06 08/10/21 04:06 Labs: Abnormal Lab Results - Last 24 Hours (Table) 08/07/21 08/09/21 08/09/21 Range/Units 03:30 05:00 05:00 WBC (3.8-10.6) k/uL Neutrophils # (Manual) (1.3-7.7) k/uL Lymphocytes # (Manual) (1.0-4.8) k/uL Metamyelocytes # (Man) (0) k/uL ABG pH (7.35-7.45) ABG pCO2 (35-45) mmHg ABG pO2 (83-108) mmHg ABG HCO3 (21-25) mmol/L ABG Total CO2 (19-24) mmol/L ABG O2 Saturation (94-97) % Carbon Dioxide (22-30) mmol/L BUN (7-17) mg/dL Glucose (74-99) mg/dL POC Glucose (mg/dL) (75-99) mg/dL Ferritin 2786.0 H 2512.0 H (10.0-291.0) ng/mL NT-Pro-B Natriuret Pep (0-450) pg/mL Procalcitonin 0.23 H (0.02-0.09) ng/mL 08/09/21 08/09/21 08/09/21 Range/Units 05:00 11:47 12:38 WBC (3.8-10.6) k/uL Neutrophils # (Manual) (1.3-7.7) k/uL Lymphocytes # (Manual) (1.0-4.8) k/uL Metamyelocytes # (Man) (0) k/uL ABG pH 7.25 L (7.35-7.45) ABG pCO2 75 H* (35-45) mmHg ABG pO2 81 L (83-108) mmHg ABG HCO3 33 H (21-25) mmol/L ABG Total CO2 35 H (19-24) mmol/L ABG O2 Saturation (94-97) % Carbon Dioxide (22-30) mmol/L BUN (7-17) mg/dL Glucose (74-99) mg/dL POC Glucose (mg/dL) 217 H (75-99) mg/dL Ferritin (10.0-291.0) ng/mL NT-Pro-B Natriuret Pep 453 H (0-450) pg/mL Procalcitonin (0.02-0.09) ng/mL 08/09/21 08/09/21 08/10/21 Range/Units 16:04 20:13 00:08 WBC (3.8-10.6) k/uL Neutrophils # (Manual) (1.3-7.7) k/uL Lymphocytes # (Manual) (1.0-4.8) k/uL Metamyelocytes # (Man) (0) k/uL ABG pH (7.35-7.45) ABG pCO2 (35-45) mmHg ABG pO2 (83-108) mmHg ABG HCO3 (21-25) mmol/L ABG Total CO2 (19-24) mmol/L ABG O2 Saturation (94-97) % Carbon Dioxide (22-30) mmol/L BUN (7-17) mg/dL Glucose (74-99) mg/dL POC Glucose (mg/dL) 215 H 223 H 174 H (75-99) mg/dL Ferritin (10.0-291.0) ng/mL NT-Pro-B Natriuret Pep (0-450) pg/mL Procalcitonin (0.02-0.09) ng/mL 08/10/21 08/10/21 08/10/21 Range/Units 03:30 04:06 04:06 WBC 12.7 H (3.8-10.6) k/uL Neutrophils # (Manual) 11.10 H (1.3-7.7) k/uL Lymphocytes # (Manual) 0.13 L (1.0-4.8) k/uL Metamyelocytes # (Man) 0.51 H (0) k/uL ABG pH (7.35-7.45) ABG pCO2 (35-45) mmHg ABG pO2 (83-108) mmHg ABG HCO3 (21-25) mmol/L ABG Total CO2 (19-24) mmol/L ABG O2 Saturation (94-97) % Carbon Dioxide 37 H (22-30) mmol/L BUN 24 H (7-17) mg/dL Glucose 119 H (74-99) mg/dL POC Glucose (mg/dL) 119 H (75-99) mg/dL Ferritin (10.0-291.0) ng/mL NT-Pro-B Natriuret Pep (0-450) pg/mL Procalcitonin (0.02-0.09) ng/mL 08/10/21 08/10/21 Range/Units 05:51 05:59 WBC (3.8-10.6) k/uL Neutrophils # (Manual) (1.3-7.7) k/uL Lymphocytes # (Manual) (1.0-4.8) k/uL Metamyelocytes # (Man) (0) k/uL ABG pH 7.34 L (7.35-7.45) ABG pCO2 69 H (35-45) mmHg ABG pO2 68 L (83-108) mmHg ABG HCO3 37 H (21-25) mmol/L ABG Total CO2 39 H (19-24) mmol/L ABG O2 Saturation 93.9 L (94-97) % Carbon Dioxide (22-30) mmol/L BUN (7-17) mg/dL Glucose (74-99) mg/dL POC Glucose (mg/dL) 109 H (75-99) mg/dL Ferritin (10.0-291.0) ng/mL NT-Pro-B Natriuret Pep (0-450) pg/mL Procalcitonin (0.02-0.09) ng/mL Microbiology - Last 24 Hours (Table) 08/04/21 13:50 Blood Culture - Preliminary Blood No Growth after 120 hours 08/04/21 13:40 Blood Culture - Preliminary Blood No Growth after 120 hours Assessment and Plan Plan: 1 Acute hypoxemic respiratory failure secondary to coronavirus associated pneumonia, status post intubation and mechanical ventilation on 08/05/2021. The patient is currently on a combination of Decadron 6 mg IV every 24 hours and Baricitinib per protocol. Noted the patient is also on Lovenox for DVT prophy laxis. Doppler of the lower extremities been negative. Chest x-ray diffuse bilateral pulmonary infiltrates consistent with COVID-19 related pneumonia. Superinfection is possible although considered to be less likely. Pro calcitonin level is low. Chest x-ray was noted. Blood gases was noted. The patient is sedated and paralyzed. We will continue with permissive hypercapnia and low tidal volume ventilation. Peak and static pressures are improved compared to yesterday. Chest x-ray findings and essentially unchanged. Blood gas is stable. The patient is currently off Baricitinib. The patient otherwise is essentially stable on today's evaluation. The chest x-ray and a blood gases was noted. 2 ARDS secondary to COVID 19 related pneumonia. The patient's lungs are extremely noncompliant with elevated peak and static pressure 3 Moraxella catarrhalis in the sputum, not clear of true infection. Procal level remains low range to 0.3 and 0.4 4 Elevated inflammatory marker secondary to coronavirus infection. Note that inflammatory markers of been improving 5 History of essential hypertension. 6 History of hyperlipidemia. 7 History of diabetes mellitus. 8 History of hypothyroidism, not well controlled. Plan: Continue ventilator support and drop the PEEP down to 17 and keep the FiO2 at 60%. Keep the tidal volume of 325. Monitor peak and static pressures, the levels are 35 and 30 respectively Continue Decadron Keep the patient sedated and paralyzed for now, consider a paralytic holiday at a later stage, we are seriously going to try to give this patient a paralytic holiday and try to get off the paralytics today Continue enteral feeding for nutritional support IV fluids to KVO Give the patient dose of Lasix 40 mg IV push q12 x2, additional dose of Lasix will be given today to keep the patient negative fluid balance Recheck inflammatory markers showed improvement in the markers in a.m. in addition to labs in a.m. and a blood gas in a.m. and the chest x-ray in a.m. Condition is critical. Family will be updated on her condition. I'll comes obviously poor because of severe pneumonia related to COVID 19 in addition to ARDS. We'll continue to follow. There is a critically care evaluation that was performed and more than 30 minutes Time with Patient: Greater than 30 Time with Patient: Greater than 30
--- NOTE | 2021-08-10 09:04 | XR ---
EXAMINATION TYPE: XR chest 1V portable DATE OF EXAM: 08/10/2021 COMPARISON: 08/09/2021 HISTORY: Tube placement TECHNIQUE: Single frontal view of the chest is obtained. FINDINGS: ET and NG tube stable. Left-sided central line stable. Bilateral airspace disease and inte rstitial changes are noted. Tiny right-sided pleural effusion. Heart size normal. No pneumothorax. IMPRESSION: Patchy bilateral infiltrate with diffuse interstitial pattern correlate for interstitial pneumonitis or CHF.
[2021-08-10] MEDS: DEXAMETHASONE SOD PHOSPHATE 10 MG/ML 1 ML VIAL IVP SCH (09:09)
[2021-08-10] MEDS: CHLORHEXIDINE GLUCONATE 15 ML CUP MUCOUS MEM SCH ×2 (09:09→20:37)
[2021-08-10] MEDS: CHOLECALCIFEROL 125 MCG (5000 IU) TABLET PO SCH (09:10)
[2021-08-10] MEDS: FUROSEMIDE 10 MG/ML 4 ML VIAL IV SCH ×2 (09:10→20:37)
[2021-08-10] MEDS: ENOXAPARIN 40 MG/0.4 ML SYRINGE SQ SCH (09:10)
[2021-08-10] MEDS: ASCORBIC ACID 500 MG TAB PO SCH (09:10)
[2021-08-10] MEDS: ZINC SULFATE 220 MG CAP PO SCH (09:10)
[2021-08-10] MEDS: PANTOPRAZOLE 40 MG/10 ML VIAL IVP SCH (09:15)
[2021-08-10] MEDS ORDERED: PANTOPRAZOLE 40 MG/10 ML VIAL IVP SCH (09:15)
[2021-08-10 09:29] LABS: Glucose,Whole Blood 105 mg/dL (75-99)
--- NOTE | 2021-08-10 11:37 | P.PN ---
Subjective Progress Note Date: 08/10/21 This is a 76-year-old female who presented to emergency room with cough, congestion, dyspnea and weakness and fatigue over several weeks. Approximately week ago patient took a home Covid test which indicated that she was positive. She has not received Covid vaccine or treatment for the positive Covid test. When symptoms worsened she decided to present to the ER for evaluation and treatment. She was initially placed on BiPAP in the intensive care unit and subsequently been intubated. She is currently paralyzed with cisatracurium, sedated with propofol and utilizing Toradol IV push for pain management. Currently mechanically ventilated on 80% FiO2. Patient is afebrile 96.9, respiratory rate of 26, blood pressure is stable at 109/51, maintain oxygen saturation of 90% and entitle CO2 of 28. Most recent set of vital signs WC count of 15.5, hematocrit of 35.6, hemoglobin 12.0, platelet count 119. Chemistry panel reveals a sodium 138, potassium 3.8, BUN of 19, creatinine 0.72, GFR 83, AST of 99, ELT 106, alk phos 131, LDH 847. TSH of 8.37. T4 0.5, pro- calcitonin 0.34 08/08/2021 remains mechanical ventilator-dependent, FiO2 decreased to 65%, PEEP remains at 20. Continues on Nimbex and diprovan drips. Chest x-ray reported patchy bilateral infiltrate with diffuse interstitial pattern, tiny right-sided pleural effusion, received Lasix. Maintained on Rocephin (Moraxella catarrhalis in the sputum) , Covid cocktail with Baricitinib discontinued. Blood sugars elevated. Afebrile, WBC 13.3. Pro-calcitonin 0.34. 08/09/2021 continues on FiO2 65% with PEEP of 20, Nimbex and diprovan drips. Chest x-ray reporting persistent patchy bilateral infiltrate with diffuse interstitial pattern. Received additional Lasix today Blood sugars elevated, improving, A1c 8.4. Afebrile, WBC 14.3. D-dimer 0.77, ferritin increased to 2512, LDH decreased to 606, CRP increased to 21.2. LFTs decreasing with the exception of alkaline phosphatase, increased to 171. ProBNP 453. Receiving tube feeds to call, tolerating well with minimal to no residuals, stooling. 08/10/2021 remains vent dependent, FiO2 60%/+18 of PEEP. Maintained on Nimbex and diprovan drips. Chest x-ray noted, unchanged. Currently afebrile, T-max 99.1, WBC trending down, 12.7. BUN 24, and 0.74. Repeat pro-calcitonin 0.31. Additional Levemir added to med regimen yesterday, Blood sugars controlled. Received Lasix IV push yesterday again, diuresed well with 24-hour I&O reflecting a negative fluid balance. Sodium within normal limits, 142. Objective - Vital Signs Vital signs: Vital Signs Temp 98.2 F 08/10/21 08:00 Pulse 78 08/10/21 10:00 Resp 32 H 08/10/21 10:00 BP 111/56 08/10/21 10:00 Pulse Ox 89 L 08/10/21 10:00 Intake & Output 08/09/21 08/10/21 08/10/21 18:59 06:59 18:59 Intake Total 380.070 7731.767 474.871 Output Total 1085 1770 250 Balance -93.437 -617.233 224.871 Weight 94 kg 95 kg Intake: IV 276 276 92 Pressure bag 36 36 12 Sodium Chloride 0.9% 1, 240 240 80 000 ml @ 20 mls/hr IV . Q24H [facility] Rx#:[id number] Intake, IV Titration 326.563 574.767 197.871 Amount Cisatracurium 200 mg In 193.284 97.871 Sodium Chloride 0.9% 180 ml @ 2 MCG/KG/MIN 10.92 mls/hr IV .[id number] [facility] Rx #:[id number] cefTRIAXone 1 gm In 50 Sodium Chloride 0.9% 50 ml @ 100 mls/hr IVPB Q24HR [facility] Rx#:[id number] propofoL 1,000 mg In 276.563 381.483 100.00 Empty Bag 1 bag @ Titrate IV .Q0M [facility] Rx#: [id number] Tube Feeding 299 242 95 Other 90 60 90 Output: Urine 1085 1770 250 Other: Voiding Method Indwelling Catheter Indwelling Catheter ABP, PAP, CO, CI - Last Documented Arterial Blood Pressure 114/41 - Exam - Exam: limited Exam r/t to COVID GENERAL: intubated, sedated and paralyzed, NAD Lungs: Mechanically ventilated Heart: Regular rate and rhythm per ekg monitor Abdomen: Soft, nondistended Extremities: No pitting or edema. Neurological: Sedated and paralyzed - Labs CBC & Chem 7: 08/10/21 04:06 08/10/21 04:06 Labs: Abnormal Lab Results - Last 24 Hours (Table) 08/07/21 08/09/21 08/09/21 Range/Units 03:30 11:47 12:38 WBC (3.8-10.6) k/uL Neutrophils # (Manual) (1.3-7.7) k/uL Lymphocytes # (Manual) (1.0-4.8) k/uL Metamyelocytes # (Man) (0) k/uL ABG pH 7.25 L (7.35-7.45) ABG pCO2 75 H* (35-45) mmHg ABG pO2 81 L (83-108) mmHg ABG HCO3 33 H (21-25) mmol/L ABG Total CO2 35 H (19-24) mmol/L ABG O2 Saturation (94-97) % Carbon Dioxide (22-30) mmol/L BUN (7-17) mg/dL Glucose (74-99) mg/dL POC Glucose (mg/dL) 217 H (75-99) mg/dL Ferritin 2786.0 H (10.0-291.0) ng/mL Procalcitonin (0.02-0.09) ng/mL 08/09/21 08/09/21 08/10/21 Range/Units 16:04 20:13 00:08 WBC (3.8-10.6) k/uL Neutrophils # (Manual) (1.3-7.7) k/uL Lymphocytes # (Manual) (1.0-4.8) k/uL Metamyelocytes # (Man) (0) k/uL ABG pH (7.35-7.45) ABG pCO2 (35-45) mmHg ABG pO2 (83-108) mmHg ABG HCO3 (21-25) mmol/L ABG Total CO2 (19-24) mmol/L ABG O2 Saturation (94-97) % Carbon Dioxide (22-30) mmol/L BUN (7-17) mg/dL Glucose (74-99) mg/dL POC Glucose (mg/dL) 215 H 223 H 174 H (75-99) mg/dL Ferritin (10.0-291.0) ng/mL Procalcitonin (0.02-0.09) ng/mL 08/10/21 08/10/21 08/10/21 Range/Units 03:30 04:06 04:06 WBC 12.7 H (3.8-10.6) k/uL Neutrophils # (Manual) 11.10 H (1.3-7.7) k/uL Lymphocytes # (Manual) 0.13 L (1.0-4.8) k/uL Metamyelocytes # (Man) 0.51 H (0) k/uL ABG pH (7.35-7.45) ABG pCO2 (35-45) mmHg ABG pO2 (83-108) mmHg ABG HCO3 (21-25) mmol/L ABG Total CO2 (19-24) mmol/L ABG O2 Saturation (94-97) % Carbon Dioxide (22-30) mmol/L BUN (7-17) mg/dL Glucose (74-99) mg/dL POC Glucose (mg/dL) 119 H (75-99) mg/dL Ferritin (10.0-291.0) ng/mL Procalcitonin 0.31 H (0.02-0.09) ng/mL 08/10/21 08/10/21 08/10/21 Range/Units 04:06 05:51 05:59 WBC (3.8-10.6) k/uL Neutrophils # (Manual) (1.3-7.7) k/uL Lymphocytes # (Manual) (1.0-4.8) k/uL Metamyelocytes # (Man) (0) k/uL ABG pH 7.34 L (7.35-7.45) ABG pCO2 69 H (35-45) mmHg ABG pO2 68 L (83-108) mmHg ABG HCO3 37 H (21-25) mmol/L ABG Total CO2 39 H (19-24) mmol/L ABG O2 Saturation 93.9 L (94-97) % Carbon Dioxide 37 H (22-30) mmol/L BUN 24 H (7-17) mg/dL Glucose 119 H (74-99) mg/dL POC Glucose (mg/dL) 109 H (75-99) mg/dL Ferritin (10.0-291.0) ng/mL Procalcitonin (0.02-0.09) ng/mL 08/10/21 Range/Units 09:28 WBC (3.8-10.6) k/uL Neutrophils # (Manual) (1.3-7.7) k/uL Lymphocytes # (Manual) (1.0-4.8) k/uL Metamyelocytes # (Man) (0) k/uL ABG pH (7.35-7.45) ABG pCO2 (35-45) mmHg ABG pO2 (83-108) mmHg ABG HCO3 (21-25) mmol/L ABG Total CO2 (19-24) mmol/L ABG O2 Saturation (94-97) % Carbon Dioxide (22-30) mmol/L BUN (7-17) mg/dL Glucose (74-99) mg/dL POC Glucose (mg/dL) 105 H (75-99) mg/dL Ferritin (10.0-291.0) ng/mL Procalcitonin (0.02-0.09) ng/mL Microbiology - Last 24 Hours (Table) 08/04/21 13:50 Blood Culture - Preliminary Blood No Growth after 120 hours 08/04/21 13:40 Blood Culture - Preliminary Blood No Growth after 120 hours Assessment and Plan Assessment: Acute Covid pneumonia, sputum culture reporting Moraxella Catarrhalis Acute hypoxic respiratory failure secondary to the above, mechanical ventilator dependent ARDS secondary to acute COVID-19 pneumonia Diabetes mellitus type 2, hyperglycemic, hemoglobin A1c 8.4 Hypothyroidism Essential hypertension Hyperlipidemia Plan: Continue on current medication regime ,monitoring and symptomatic treatment. Continue covid cocktail. 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 Continue with close monitoring of Accu-Cheks, with no change today in levemir insulin. Prognosis guarded given multiple complex medical issues. The impression and plan of care has been dictated as directed. : I performed a history and examination of this patient, discussed the same with the dictator. I agree with the dictator's note ,documented as a scribe. Any additional findings or plans will be noted.
[2021-08-10 11:47] LABS: Glucose,Whole Blood 136 mg/dL (75-99)
[2021-08-10 16:08] LABS: Glucose,Whole Blood 122 mg/dL (75-99)
[2021-08-10] MEDS: CISATRACURIUM 200 MG in SODIUM CHLORIDE 0.9% 180 ML IV SCH (20:34)
[2021-08-10] MEDS: SODIUM CHLORIDE 0.9% 1,000 ML IV SCH (20:38)
[2021-08-10 20:51] LABS: Glucose,Whole Blood 126 mg/dL (75-99)
[2021-08-10 23:16] LABS: Glucose,Whole Blood 126 mg/dL (75-99)
[2021-08-11] MEDS: ALBUTEROL HFA INHALER INHALATION SCH ×7 (01:14→23:32)
[2021-08-11 04:15] LABS: Glucose,Whole Blood 140 mg/dL (75-99)
[2021-08-11] MEDS: ARTIFICIAL TEARS-HYPROMELLOSE DROPS 15 ML BTL BOTH EYES SCH ×6 (04:20→23:33)
[2021-08-11] MEDS: INSULIN ASPART (NovoLOG) 100 UNIT/ML VIAL SQ SCH ×6 (04:20→23:32)
[2021-08-11 04:25] LABS: Basophils # (A) 0.1 k/uL (0-0.2); Basophils % (A) 1 %; Eosinophils # (A) 0.3 k/uL (0-0.7); Eosinophils % (A) 1 %; HCT 37.7 % (34.0-46.0); HGB 12.2 gm/dL (11.4-16.0); Lymphocytes # (A) 0.4 k/uL (1.0-4.8); Lymphocytes % (A) 2 %; MCH 30.3 pg (25.0-35.0); MCHC 32.3 g/dL (31.0-37.0); MCV 93.7 fL (80.0-100.0); Mean Platelet Volume 9.6; Monocytes # (A) 0.4 k/uL (0-1.0); Monocytes % (A) 2 %; Neutrophils # (A) 17.9 k/uL (1.3-7.7); Neutrophils % (A) 94 %; Platelet Count 224 k/uL (150-450); RBC 4.03 m/uL (3.80-5.40); RDW 13.8 % (11.5-15.5); WBC 19.1 k/uL (3.8-10.6)
[2021-08-11 04:40] LABS: Partial Thromboplastin Time 22.9 sec (22.0-30.0); Prothrombin Time 10.3 sec (9.0-12.0)
[2021-08-11 04:59] LABS: Albumin 2.4 g/dL (3.5-5.0); Calcium 9.4 mg/dL (8.4-10.2); Magnesium 1.8 mg/dL (1.6-2.3); Potassium 4.1 mmol/L (3.5-5.1); Total Bilirubin 0.6 mg/dL (0.2-1.3); Total Protein 5.4 g/dL (6.3-8.2)
[2021-08-11 05:34] LABS: ABG Base Excess 12.6 mmol/L; ABG HCO3 39 mmol/L (21-25); ABG Oxygen Saturation 90.9 % (94-97); ABG PH 7.31 (7.35-7.45); ABG PO2 65 mmHg (83-108); ABG TCO2 41 mmol/L (19-24); Allen Test Performed? Yes
[2021-08-11 05:37] LABS: ABG PCO2 77 mmHg (35-45)
[2021-08-11] MEDS: CISATRACURIUM 200 MG in SODIUM CHLORIDE 0.9% 180 ML IV SCH (05:43)
[2021-08-11] MEDS: INSULIN DETEMIR (LEVEMIR) 100 UNIT/ML SYR SQ SCH ×2 (06:17→20:46)
[2021-08-11] MEDS: LEVOTHYROXINE 100 MCG TAB OG-TUBE SCH (06:17)
[2021-08-11 07:52] LABS: Glucose,Whole Blood 142 mg/dL (75-99)
[2021-08-11] MEDS ORDERED: FUROSEMIDE 10 MG/ML 4 ML VIAL IV STA (08:19)
[2021-08-11] MEDS ORDERED: bisacodyL 10 MG SUPP RECTAL STA (08:21)
--- NOTE | 2021-08-11 08:22 | P.PN ---
Subjective Progress Note Date: 08/11/21 This is a 76-year-old female patient who presented to us on 08/04/2021 for shortness of breath and hypoxemia. The patient tested positive COVID-19 on 07/30/2021. Noted the patient was feeling sick prior to that. She was initially on a BiPAP for support as the patient was quite hypoxic. Her comorbid conditions included diabetes mellitus, hypertension, hypothyroidism and hyperlipidemia. Chest x-ray also showed elevation of the right hemidiaphragm along with diffuse bilateral airspace disease consistent with COVID-19 related pneumonia. Within a few days of admission, the patient decompensated and the patient to be intubated and placed on mechanical ventilator. The patient was intubated on 08/05/2021 and the patient remains intubated, sedated, paralyzed this point in time. Note that the patient is an assist-control mode of mechanical ventilation at the rate of 26 with a tidal volume of 400 and FiO2 of 80% with a PEEP of 20. Chest x-ray was noted. Blood gases was noted. The patient remains on propofol running at 40 mcg/kg per minute and the patient is also Nimbex at 1.5 mcg/kg per minute. Normal saline is running at the rate of 80 mL an hour and the patient is also on enteral feeding for nutritional support with vitamin AF at the rate of 29 mL an hour, goal. Inflammatory markers were modestly elevated with an LDH of 847, CRP of 18.7 from yesterday. Chest x-ray was consistent with diffuse bilateral pulmonary infiltrates. Sputum pillowcase turner to be positive for Moraxella catarrhalis and the patient's pro calcitonin level was at 0.34. At this point in time, the patient is on Baricitinib was started on 08/05/2021 in addition to Decadron 6 mg IV every 24 hours. The patient is also on Lovenox 40 mg subcu for DVT prophylaxis. No antibiotic coverage is offered to this patient this point in time. The white cell count from yesterday was elevated at 15. The patient also had a consent form and of mild transaminitis. Inflammatory markers have been gradually improving. Note that the patient from yesterday was down to 847, troponins are negative, TSH wasn't 8.3 with a free T4 of 0.51. The pro calcitonin on several occasions was checked and it remained at 0.3 and 0.4 range. On today's evaluation of 08/08/2021, the patient remains essentially on the same ventilator setting. The patient is on a assist-control mode at the rate of 26 with a tidal volume 400 and FiO2 of 65% with a PEEP of 20. Peak airway pressure is 46, static airway pressures around 45. The blood gases from today shows a pH of 7.39 with a pCO2 of 42 and pO2 of 16 1. Chest x- ray showed diffuse bilateral pulmonary infiltrates. ET tube is in a good location. Orogastric tube is in a good location. The patient also has a triple-lumen catheter in the subclavian vein on the left. In comparison to yesterday's chest x-ray, there is no major interval change. In terms of his blood work, no significant abnormalities noted, inflammatory markers were not checked today, the white cell count is at 15.3 and the patient is afebrile. 08/09/2021, I am seeing the patient for a follow-up. As mentioned earlier, the patient is a simple COVID 19 related pneumonia with secondary respiratory failure and ARDS and the patient is currently intubated, on a mechanical ventilator. On today's evaluation, the patient remains sedated and the patient is currently on propofol running at 45 mcg/kg per minute. The patient is also on Nimbex at 1.5 respiratory per minute pH is adequately sedated and paralyzed. The patient is an assist-control mode of mechanical ventilation. Her current respiratory rate is at 26 with a tidal volume of 350 and the patient's FiO2 is currently at 65% with a PEEP of 20. The chest x-ray still showing pulmonary infiltrates most on the lower lobes. No evidence of any pneumothorax. ET tube is in a good location. The patient has a left subclavian triple-lumen catheter in place. On yesterday's evaluation, I eliminated the Baricitinib as the patient had Moraxella catarrhalis in the sputum. I added IV Rocephin. I kept the patient on Decadron. No new cultures are available for now. The white cell count is at 14. D-dimer is low at 0.7. The LDH level is o n the decline and is currently down to 606 and a CRP level is at 21. Rest of the blood work and electrolytes are all within normal limits. The patient is afebrile. The patient is receiving enteral feeding for nutritional support. Currently the patient is on vitamin AF at the rate of 29 mL an hour and the patient shows no abdominal distention. She is stooling. The peak airway pressure today was 39 and the static airway pressure was 37 and this is improved as the patient was given a lower tidal volume yesterday and the ventilator changes were done accordingly. She was given a dose of Lasix yesterday and following that the patient had adequate diuresis and the patient despite that is still in a positive fluid balance. I'm going to give her another dose of Lasix 40 mg IV push every 122 doses. 08/10/2021, the patient is being seen for a follow-up. On today's evaluation, the patient remains sedated with propofol running at 50 mcg/kg per minute and the patient is also Nimbex at 1.5 mcg/kg/m. She remains on a mechanical ventilator. Some ventilator changes were done yesterday. The current tidal volume is down to 325 with a rate of 26 and a PEEP of 18 with an FiO2 of 60%. The peak airway pressures 35. The static pressures 30. Her chest x-ray remains unchanged. The blood gases showed a pH of 7.34 with a pCO2 of 69 and pO2 of 68. The patient is diuresis with IV Lasix yesterday and the neck fluid balance is - 710 mL over the past 24 hours. She is receiving enteral feeding for nutritional support. She hasn't had a bowel movement yet. The rest of the blood work from today is essentially benign. White cell count is at 3.9 with a hemoglobin of 12 and BUN is a 24 with a creatinine of 0.7 and the sodium level of 142. The patient remains on Decadron. The inflammatory markers were essentially on the decline. D-dimer, LDH and CRP were all at the lower level. No other significant events overnight. The patient is still vent dependent due to COVID 19 related pneumonia/ARDS. She is afebrile. She is hemodynamically stable. No other issues otherwise. 08/11/2021, I'm seeing the patient for a follow-up. He remains sedated and paralyzed. Noted the patient was taken off paralytics throughout the day yesterday. At around midnight the patient desaturated and she was getting asynchronous a mechanical ventilator and as such the Nimbex was restarted. Currently Nimbex is running at the rate of 2 mcg/kg per minute. The patient is also on propofol at 45 mcg/kg per minute. The patient remains on a mechanical ventilator. On today's evaluation, she is an assist-control mode at the rate of 26, PEEP is currently at 17 which is slightly lower compared to yesterday and FiO2 is currently at 65% and her tidal volume is currently at 325. There peak air pressure is 35 which is essentially the same as yesterday. Static airway pressure continues to be quite elevated. On today's evaluation, the chest x-ray shows some limited improvement in her infiltration in the lung bases bilaterally. Blood gases from today shows a pH of 7.31 with a pCO2 of 77 and pO2 of 65 and this was essentially done on the above-mentioned ventilator setting. D-dimer is down to 0.9. Inflammatory markers including LDH is down to 619 and the CRP is at 42. Renal function is stable. Electrolytes are stable. LFTs show some mild elevation of the alkaline phosphatase although this has been stable. The patient continues to receive enteral feeding for nutritional support. The patient is tolerating her enteral feeding. She is not stooling. She is not having a lot of residual. Abdomen is nondistended. She was given Lasix yesterday and the fluid balance as noted today has been -83 mL over the past 24 hours. Note that her urine output was in the order of 2.2 L over the p ast 24 hours. She is receiving Lasix daily basis based on her overall fluid status and fluid balance. She is afebrile. No other significant events otherwise for now. Blood sugar control is with Levemir insulin 30 units and the patient is receiving 10 units of Levemir at bedtime. She is also receiving a sliding scale coverage. The sputum culture was positive for Moraxella catarrhalis and the patient is currently on IV Rocephin. The patient remains on Decadron at a dose of 6 mg IV on a daily basis. Objective - Vital Signs Vital signs: Vital Signs Temp 98.6 F 08/11/21 04:00 Pulse 86 08/11/21 07:00 Resp 26 H 08/11/21 07:00 BP 127/67 08/11/21 07:00 Pulse Ox 89 L 08/11/21 07:00 Intake & Output 1208/11/21 08/11/21 18:59 06:59 18:59 Intake Total 0535.830 6340.598 23 Output Total 890 1340 35 Balance 196.755 -280.402 -12 Weight 95 kg Intake: IV 276 276 23 Pressure bag 36 36 3 Sodium Chloride 0.9% 1, 240 240 20 000 ml @ 20 mls/hr IV . Q24H [facility] Rx#:[id number] Intake, IV Titration 389.755 425.598 Amount Cisatracurium 200 mg In 97.871 18.428 Sodium Chloride 0.9% 180 ml @ 2 MCG/KG/MIN 10.92 mls/hr IV .[id number] [facility] Rx #:[id number] propofoL 1,000 mg In 291.884 407.170 Empty Bag 1 bag @ Titrate IV .Q0M [facility] Rx#: [id number] Tube Feeding 271 268 Other 150 90 Output: Urine 890 1340 35 Other: Voiding Method Indwelling Catheter Indwelling Catheter ABP, PAP, CO, CI - Last Documented Arterial Blood Pressure 109/42 - Exam Gen. appearance, No acute distress, sedated and paralyzed, with an orally placed endotracheal tube and NG tube. HEENT examination is grossly unremarkable. Neck supple. Full range of motion. No adenopathy thyromegaly or neck vein distention. Cardiac exam revealed the PMI to be normally situated and sized. The rhythm was regular and no extrasystoles were noted during several minutes of auscultation. The first and second heart sounds were normal and physiologic splitting of the second heart sound was noted. There were no murmurs, rubs, clicks, or gallops. Lungs reveal use bilateral rhonchi. No wheezes or crackles. Breath sounds equal. Saturations 93%. Abdominal exam revealed normal bowel sounds. The abdomen was soft, non-tender, and without masses, organomegaly, or appreciable enlargement of the abdominal aorta. Extremities are intact. No cyanosis clubbing or edema. Skin is without rash or lesion. Neurologic examination cannot be adequately assessed as the patient's currently sedated and paralyzed. - Labs CBC & Chem 7: 08/11/21 04:10 08/11/21 04:10 Labs: Abnormal Lab Results - Last 24 Hours (Table) 08/10/21 08/10/21 08/10/21 Range/Units 04:06 09:28 11:46 WBC (3.8-10.6) k/uL Neutrophils # (1.3-7.7) k/uL Lymphocytes # (1.0-4.8) k/uL Fibrinogen (200-500) mg/dL D-Dimer (<0.60) mg/L FEU ABG pH (7.35-7.45) ABG pCO2 (35-45) mmHg ABG pO2 (83-108) mmHg ABG HCO3 (21-25) mmol/L ABG Total CO2 (19-24) mmol/L ABG O2 Saturation (94-97) % Carbon Dioxide (22-30) mmol/L BUN (7-17) mg/dL Glucose (74-99) mg/dL POC Glucose (mg/dL) 105 H 136 H (75-99) mg/dL ALT (4-34) U/L Alkaline Phosphatase (38-126) U/L C-Reactive Protein (<1.0) mg/dL Total Protein (6.3-8.2) g/dL Albumin (3.5-5.0) g/dL Procalcitonin 0.31 H (0.02-0.09) ng/mL 08/10/21 08/10/21 08/10/21 Range/Units 16:07 20:50 23:15 WBC (3.8-10.6) k/uL Neutrophils # (1.3-7.7) k/uL Lymphocytes # (1.0-4.8) k/uL Fibrinogen (200-500) mg/dL D-Dimer (<0.60) mg/L FEU ABG pH (7.35-7.45) ABG pCO2 (35-45) mmHg ABG pO2 (83-108) mmHg ABG HCO3 (21-25) mmol/L ABG Total CO2 (19-24) mmol/L ABG O2 Saturation (94-97) % Carbon Dioxide (22-30) mmol/L BUN (7-17) mg/dL Glucose (74-99) mg/dL POC Glucose (mg/dL) 122 H 126 H 126 H (75-99) mg/dL ALT (4-34) U/L Alkaline Phosphatase (38-126) U/L C-Reactive Protein (<1.0) mg/dL Total Protein (6.3-8.2) g/dL Albumin (3.5-5.0) g/dL Procalcitonin (0.02-0.09) ng/mL 08/11/21 08/11/21 08/11/21 Range/Units 04:10 04:10 04:10 WBC 19.1 H (3.8-10.6) k/uL Neutrophils # 17.9 H (1.3-7.7) k/uL Lymphocytes # 0.4 L (1.0-4.8) k/uL Fibrinogen 937 H (200-500) mg/dL D-Dimer 0.91 H (<0.60) mg/L FEU ABG pH (7.35-7.45) ABG pCO2 (35-45) mmHg ABG pO2 (83-108) mmHg ABG HCO3 (21-25) mmol/L ABG Total CO2 (19-24) mmol/L ABG O2 Saturation (94-97) % Carbon Dioxide 37 H (22-30) mmol/L BUN 33 H (7-17) mg/dL Glucose 151 H (74-99) mg/dL POC Glucose (mg/dL) (75-99) mg/dL ALT 64 H (4-34) U/L Alkaline Phosphatase 175 H (38-126) U/L C-Reactive Protein 42.0 H (<1.0) mg/dL Total Protein 5.4 L (6.3-8.2) g/dL Albumin 2.4 L (3.5-5.0) g/dL Procalcitonin (0.02-0.09) ng/mL 08/11/21 08/11/21 08/11/21 Range/Units 04:12 05:30 07:50 WBC (3.8-10.6) k/uL Neutrophils # (1.3-7.7) k/uL Lymphocytes # (1.0-4.8) k/uL Fibrinogen (200-500) mg/dL D-Dimer (<0.60) mg/L FEU ABG pH 7.31 L (7.35-7.45) ABG pCO2 77 H* (35-45) mmHg ABG pO2 65 L (83-108) mmHg ABG HCO3 39 H (21-25) mmol/L ABG Total CO2 41 H (19-24) mmol/L ABG O2 Saturation 90.9 L (94-97) % Carbon Dioxide (22-30) mmol/L BUN (7-17) mg/dL Glucose (74-99) mg/dL POC Glucose (mg/dL) 140 H 142 H (75-99) mg/dL ALT (4-34) U/L Alkaline Phosphatase (38-126) U/L C-Reactive Protein (<1.0) mg/dL Total Protein (6.3-8.2) g/dL Albumin (3.5-5.0) g/dL Procalcitonin (0.02-0.09) ng/mL Microbiology - Last 24 Hours (Table) 08/04/21 13:50 Blood Culture - Final Blood No Growth after 144 hours 08/04/21 13:40 Blood Culture - Final Blood No Growth after 144 hours Assessment and Plan Plan: 1 Acute hypoxemic respiratory failure secondary to coronavirus associated pneumonia, status post intubation and mechanical ventilation on 08/05/2021. The patient is currently on a combination of Decadron 6 mg IV every 24 hours and Baricitinib per protocol. Noted the patient is also on Lovenox for DVT prophylaxis. Doppler of the lower extremities been negative. Chest x-ray diffuse bilateral pulmonary infiltrates consistent with COVID-19 related pneumonia. Superinfection is possible although considered to be less likely. Pro calcitonin level is low. Chest x-ray was noted. Blood gases was noted. The patient is sedated and paralyzed. We will continue with permissive hypercapnia and low tidal volume ventilation. Peak and static pressures are improved compared to yesterday. I'm not seeing any significant change in the patient's condition. Chest x-ray findings are slightly improved nevertheless oxygenation is still very borderline, ventilation is borderline, the patient is still allowing permissive hypercapnia, peak and static pressures are elevated a nd the patient remains on Decadron. She has Moraxella in the sputum and the patient is currently on IV Rocephin6 2 ARDS secondary to COVID 19 related pneumonia. The patient's lungs are extremely noncompliant with elevated peak and static pressure 3 Moraxella catarrhalis in the sputum, not clear of true infection. Procal level remains low range to 0.3 and 0.4 4 Elevated inflammatory marker secondary to coronavirus infection. Note that inflammatory markers of been improving 5 History of essential hypertension. 6 History of hyperlipidemia. 7 History of diabetes mellitus. 8 History of hypothyroidism, not well controlled. Plan: Continue ventilator support and drop the PEEP down to 16 and keep the FiO2 at 60%. Keep the tidal volume of 325. Monitor peak and static pressures, the levels are 33 and 31 respectively Continue Decadron paralytic holiday today Continue enteral feeding for nutritional support IV fluids to KVO Give the patient dose of Lasix 40 mg IV push q24 x1 DulcolX suppository I'm going to discuss the issue with the family. I think we are at it hours PEG and trach as the patient has been intubated on 08/05/2021 and the patient is doing minimal if any progress for now. Recheck inflammatory markers showed improvement in the markers in a.m. in a ddition to labs in a.m. and a blood gas in a.m. and the chest x-ray in a.m. Condition is critical. Family will be updated on her condition. I'll comes obviously poor because of severe pneumonia related to COVID 19 in addition to ARDS. We'll continue to follow. There is a critically care evaluation that was performed and more than 30 minutes Time with Patient: Greater than 30 Time with Patient: Greater than 30
[2021-08-11] MEDS: ENOXAPARIN 40 MG/0.4 ML SYRINGE SQ SCH (08:58)
[2021-08-11] MEDS: CHLORHEXIDINE GLUCONATE 15 ML CUP MUCOUS MEM SCH ×2 (08:58→20:45)
[2021-08-11] MEDS: PANTOPRAZOLE 40 MG/10 ML VIAL IVP SCH (08:58)
[2021-08-11] MEDS: ASCORBIC ACID 500 MG TAB PO SCH (08:59)
[2021-08-11] MEDS: ZINC SULFATE 220 MG CAP PO SCH (08:59)
[2021-08-11] MEDS: DEXAMETHASONE SOD PHOSPHATE 10 MG/ML 1 ML VIAL IVP SCH (08:59)
[2021-08-11] MEDS: CHOLECALCIFEROL 125 MCG (5000 IU) TABLET PO SCH (08:59)
--- NOTE | 2021-08-11 10:17 | XR ---
EXAMINATION TYPE: XR chest 1V portable DATE OF EXAM: 08/11/2021 COMPARISON: 08/10/2021 HISTORY: Tube placement TECHNIQUE: Single frontal view of the chest is obtained. FINDINGS: Diffuse bilateral infiltrates. ET and NG tube noted. Central line stable. No pneumothorax or pleural effusion. Heart size normal. IMPRESSION: Stable diffuse bilateral infiltrate.
[2021-08-11 12:02] LABS: Glucose,Whole Blood 182 mg/dL (75-99)
[2021-08-11 16:19] LABS: Glucose,Whole Blood 216 mg/dL (75-99)
[2021-08-11] MEDS: SODIUM CHLORIDE 0.9% 1,000 ML IV SCH (19:27)
[2021-08-11 19:37] LABS: Glucose,Whole Blood 173 mg/dL (75-99)
[2021-08-11 23:30] LABS: Glucose,Whole Blood 135 mg/dL (75-99)
[2021-08-12 00:56] LABS: HGB 11.4 gm/dL (11.4-16.0); MCH 30.6 pg (25.0-35.0); MCHC 32.7 g/dL (31.0-37.0); MCV 93.8 fL (80.0-100.0); Platelet Count 234 k/uL (150-450); RBC 3.73 m/uL (3.80-5.40); RDW 13.7 % (11.5-15.5); WBC 16.4 k/uL (3.8-10.6)
[2021-08-12 01:14] LABS: Potassium 4.2 mmol/L (3.5-5.1)
[2021-08-12 01:15] LABS: Albumin 2.2 g/dL (3.5-5.0); Calcium 9.1 mg/dL (8.4-10.2); Total Bilirubin 0.3 mg/dL (0.2-1.3); Total Protein 5.3 g/dL (6.3-8.2)
[2021-08-12] MEDS: CISATRACURIUM 200 MG in SODIUM CHLORIDE 0.9% 180 ML IV SCH ×2 (01:21→17:40)
[2021-08-12] MEDS: ALBUTEROL HFA INHALER INHALATION SCH ×5 (03:08→19:45)
[2021-08-12] MEDS: ARTIFICIAL TEARS-HYPROMELLOSE DROPS 15 ML BTL BOTH EYES SCH ×5 (03:38→20:13)
[2021-08-12 03:56] LABS: Glucose,Whole Blood 122 mg/dL (75-99)
[2021-08-12] MEDS: INSULIN ASPART (NovoLOG) 100 UNIT/ML VIAL SQ SCH ×5 (04:10→20:12)
--- NOTE | 2021-08-12 05:45 | XR ---
EXAMINATION TYPE: XR chest 1V portable DATE OF EXAM: 08/12/2021 COMPARISON: August 11, 2021 HISTORY: Respiratory failure TECHNIQUE: FINDINGS: There is endotracheal tube 2.5 cm from the kay. There is left subclavian catheter with t ip in the superior vena cava. There is nasogastric tube in the stomach. There is bilateral patchy pul monary airspace edema. There are chest leads. Heart size is normal. There is no pneumothorax. IMPRESSION: Bilateral moderate pulmonary edema which is not significantly different than exam yesterd ay.
[2021-08-12] MEDS: LEVOTHYROXINE 100 MCG TAB OG-TUBE SCH (05:50)
[2021-08-12] MEDS: INSULIN DETEMIR (LEVEMIR) 100 UNIT/ML SYR SQ SCH ×2 (05:54→20:12)
[2021-08-12 06:25] LABS: ABG Base Excess 15.6 mmol/L; ABG Oxygen Saturation 92.6 % (94-97); ABG PCO2 65 mmHg (35-45); ABG PO2 63 mmHg (83-108); ABG TCO2 42 mmol/L (19-24); Allen Test Performed? Yes
[2021-08-12 06:37] LABS: ABG HCO3 40 mmol/L (21-25)
--- NOTE | 2021-08-12 07:27 | P.PN ---
Subjective Progress Note Date: 08/12/21 This is a 76-year-old female patient who presented to us on 08/04/2021 for shortness of breath and hypoxemia. The patient tested positive COVID-19 on 07/30/2021. Noted the patient was feeling sick prior to that. She was initially on a BiPAP for support as the patient was quite hypoxic. Her comorbid conditions included diabetes mellitus, hypertension, hypothyroidism and hyperlipidemia. Chest x-ray also showed elevation of the right hemidiaphragm along with diffuse bilateral airspace disease consistent with COVID-19 related pneumonia. Within a few days of admission, the patient decompensated and the patient to be intubated and placed on mechanical ventilator. The patient was intubated on 08/05/2021 and the patient remains intubated, sedated, paralyzed this point in time. Note that the patient is an assist-control mode of mechanical ventilation at the rate of 26 with a tidal volume of 400 and FiO2 of 80% with a PEEP of 20. Chest x-ray was noted. Blood gases was noted. The patient remains on propofol running at 40 mcg/kg per minute and the patient is also Nimbex at 1.5 mcg/kg per minute. Normal saline is running at the rate of 80 mL an hour and the patient is also on enteral feeding for nutritional support with vitamin AF at the rate of 29 mL an hour, goal. Inflammatory markers were modestly elevated with an LDH of 847, CRP of 18.7 from yesterday. Chest x-ray was consistent with diffuse bilateral pulmonary infiltrates. Sputum basket turner to be positive for Moraxella catarrhalis and the patient's pro calcitonin level was at 0.34. At this point in time, the patient is on Baricitinib was started on 08/05/2021 in addition to Decadron 6 mg IV every 24 hours. The patient is also on Lovenox 40 mg subcu for DVT prophylaxis. No antibiotic coverage is offered to this patient this point in time. The white cell count from yesterday was elevated at 15. The patient also had a consent form and of mild transaminitis. Inflammatory markers have been gradually improving. Note that the patient from yesterday was down to 847, troponins are negative, TSH wasn't 8.3 with a free T4 of 0.51. The pro calcitonin on several occasions was checked and it remained at 0.3 and 0.4 range. On today's evaluation of 08/08/2021, the patient remains essentially on the same ventilator setting. The patient is on a assist-control mode at the rate of 26 with a tidal volume 400 and FiO2 of 65% with a PEEP of 20. Peak airway pressure is 46, static airway pressures around 45. The blood gases from today shows a pH of 7.39 with a pCO2 of 42 and pO2 of 16 1. Chest x- ray showed diffuse bilateral pulmonary infiltrates. ET tube is in a good location. Orogastric tube is in a good location. The patient also has a triple-lumen catheter in the subclavian vein on the left. In comparison to yesterday's chest x-ray, there is no major interval change. In terms of his blood work, no significant abnormalities noted, inflammatory markers were not checked today, the white cell count is at 15.3 and the patient is afebrile. 08/09/2021, I am seeing the patient for a follow-up. As mentioned earlier, the patient is a simple COVID 19 related pneumonia with secondary respiratory failure and ARDS and the patient is currently intubated, on a mechanical ventilator. On today's evaluation, the patient remains sedated and the patient is currently on propofol running at 45 mcg/kg per minute. The patient is also on Nimbex at 1.5 respiratory per minute pH is adequately sedated and paralyzed. The patient is an assist-control mode of mechanical ventilation. Her current respiratory rate is at 26 with a tidal volume of 350 and the patient's FiO2 is currently at 65% with a PEEP of 20. The chest x-ray still showing pulmonary infiltrates most on the lower lobes. No evidence of any pneumothorax. ET tube is in a good location. The patient has a left subclavian triple-lumen catheter in place. On yesterday's evaluation, I eliminated the Baricitinib as the patient had Moraxella catarrhalis in the sputum. I added IV Rocephin. I kept the patient on Decadron. No new cultures are available for now. The white cell count is at 14. D-dimer is low at 0.7. The LDH level is o n the decline and is currently down to 606 and a CRP level is at 21. Rest of the blood work and electrolytes are all within normal limits. The patient is afebrile. The patient is receiving enteral feeding for nutritional support. Currently the patient is on vitamin AF at the rate of 29 mL an hour and the patient shows no abdominal distention. She is stooling. The peak airway pressure today was 39 and the static airway pressure was 37 and this is improved as the patient was given a lower tidal volume yesterday and the ventilator changes were done accordingly. She was given a dose of Lasix yesterday and following that the patient had adequate diuresis and the patient despite that is still in a positive fluid balance. I'm going to give her another dose of Lasix 40 mg IV push every 122 doses. 08/10/2021, the patient is being seen for a follow-up. On today's evaluation, the patient remains sedated with propofol running at 50 mcg/kg per minute and the patient is also Nimbex at 1.5 mcg/kg/m. She remains on a mechanical ventilator. Some ventilator changes were done yesterday. The current tidal volume is down to 325 with a rate of 26 and a PEEP of 18 with an FiO2 of 60%. The peak airway pressures 35. The static pressures 30. Her chest x-ray remains unchanged. The blood gases showed a pH of 7.34 with a pCO2 of 69 and pO2 of 68. The patient is diuresis with IV Lasix yesterday and the neck fluid balance is - 710 mL over the past 24 hours. She is receiving enteral feeding for nutritional support. She hasn't had a bowel movement yet. The rest of the blood work from today is essentially benign. White cell count is at 3.9 with a hemoglobin of 12 and BUN is a 24 with a creatinine of 0.7 and the sodium level of 142. The patient remains on Decadron. The inflammatory markers were essentially on the decline. D-dimer, LDH and CRP were all at the lower level. No other significant events overnight. The patient is still vent dependent due to COVID 19 related pneumonia/ARDS. She is afebrile. She is hemodynamically stable. No other issues otherwise. 08/11/2021, I'm seeing the patient for a follow-up. He remains sedated and paralyzed. Noted the patient was taken off paralytics throughout the day yesterday. At around midnight the patient desaturated and she was getting asynchronous a mechanical ventilator and as such the Nimbex was restarted. Currently Nimbex is running at the rate of 2 mcg/kg per minute. The patient is also on propofol at 45 mcg/kg per minute. The patient remains on a mechanical ventilator. On today's evaluation, she is an assist-control mode at the rate of 26, PEEP is currently at 17 which is slightly lower compared to yesterday and FiO2 is currently at 65% and her tidal volume is currently at 325. There peak air pressure is 35 which is essentially the same as yesterday. Static airway pressure continues to be quite elevated. On today's evaluation, the chest x-ray shows some limited improvement in her infiltration in the lung bases bilaterally. Blood gases from today shows a pH of 7.31 with a pCO2 of 77 and pO2 of 65 and this was essentially done on the above-mentioned ventilator setting. D-dimer is down to 0.9. Inflammatory markers including LDH is down to 619 and the CRP is at 42. Renal function is stable. Electrolytes are stable. LFTs show some mild elevation of the alkaline phosphatase although this has been stable. The patient continues to receive enteral feeding for nutritional support. The patient is tolerating her enteral feeding. She is not stooling. She is not having a lot of residual. Abdomen is nondistended. She was given Lasix yesterday and the fluid balance as noted today has been -83 mL over the past 24 hours. Note that her urine output was in the order of 2.2 L over the p ast 24 hours. She is receiving Lasix daily basis based on her overall fluid status and fluid balance. She is afebrile. No other significant events otherwise for now. Blood sugar control is with Levemir insulin 30 units and the patient is receiving 10 units of Levemir at bedtime. She is also receiving a sliding scale coverage. The sputum culture was positive for Moraxella catarrhalis and the patient is currently on IV Rocephin. The patient remains on Decadron at a dose of 6 mg IV on a daily basis. 08/12/2021 the patient remains sedated and she's been off paralytics for the past 24 hours. I took her off paralytics as yesterday. She remains however on propofol which is currently running at 40 mL for. 45 mcg/kg per minute. She remains on a mechanical ventilator. Overnight, she had a cuff leak which caused significant oxygen desaturation. Based on that, the patient was placed on 100% FiO2. This morning, her efforts is currently down to 90% and his tidal volumes at 325 with a rate of 26 and a PEEP of 16. Blood gases done earlier this morning showed a pH of 7.4 with a pCO2 of 65 and pO2 of 63. Chest x-ray showing diffuse bilateral pulmonary infiltrates and there is some interval worsening in the right upper lobe pulmonary infiltration. Note that the earlier sputum that she'll Moraxella catarrhalis and the patient is currently on IV Rocephin. Meanwhile, the pro-calcitonin level was mildly elevated at 0.31 and a repeat level will be obtained to yesterday. In terms of her COVID 19 infection, the patient is still on Decadron. The patient was on Baricitinib and this was discontinued due to ongoing lung infection and presence of axillae in the sputum. She is currently afebrile. She is hemodynamically stable on no pressors. Her overall fluid balance over the past 24 hours has been in the order of 399 mL positive. The patient is producing adequate urine output. The patient is also stooling and she was given laxatives yesterday. She remains on enteral feeding for nutritional support. She is receiving iron and vitamin AF at the rate of 22 mL an hour. On today's blood work, white cell count is 16 with slightly improved compared to yesterday with a hemoglobin of 11.4. Her d- dimer from yesterday was 0.9. Coagulation profile was essentially within normal limits. BUN is a 49 with a creatinine of 0.8. Serum bicarbonate was 38 with a sodium level of 141. She remains on Levemir insulin 30 units daily in the morning and 10 units at nighttime. She is also on a scale. She is on Lovenox for DVT prophylaxis. IV fluids are currently at KVO at 20 mL an hour. Objective - Vital Signs Vital signs: Vital Signs Temp 98.3 F 08/12/21 04:00 Pulse 85 08/12/21 07:00 Resp 33 H 08/12/21 07:00 BP 115/60 08/12/21 07:00 Pulse Ox 90 L 08/12/21 07:00 Intake & Output 08/11/21 08/12/21 08/12/21 18:59 06:59 18:59 Intake Total 758.181 878.243 43 Output Total 812 425 40 Balance -53.819 453.243 3 Weight 95.9 kg Intake: IV 276 255 20 Pressure bag 36 15 Sodium Chloride 0.9% 1, 240 240 20 000 ml @ 20 mls/hr IV . Q24H [facility] Rx#:[id number] Intake, IV Titration 370.181 264.243 Amount Cisatracurium 200 mg In 83.701 Sodium Chloride 0.9% 180 ml @ 2 MCG/KG/MIN 10.92 mls/hr IV .[id number] [facility] Rx #:[id number] cefTRIAXone 1 gm In 50 Sodium Chloride 0.9% 50 ml @ 100 mls/hr IVPB Q24HR [facility] Rx#:[id number] propofoL 1,000 mg In 236.48 264.243 Empty Bag 1 bag @ Titrate IV .Q0M [facility] Rx#: [id number] Tube Feeding 112 299 23 Other 60 Output: Urine 812 425 40 Other: Voiding Method Indwelling Catheter Indwelling Catheter # Bowel Movements 1 ABP, PAP, CO, CI - Last Documented Arterial Blood Pressure 129/52 - Exam Gen. appearance, No acute distress, sedated and paralyzed, with an orally placed endotracheal tube and NG tube. HEENT examination is grossly unremarkable. Neck supple. Full range of motion. No adenopathy thyromegaly or neck vein distention. Cardiac exam revealed the PMI to be normally situated and sized. The rhythm was regular and no extrasystoles were noted during several minutes of auscultation. The first and second heart sounds were normal and physiologic splitting of the second heart sound was noted. There were no murmurs, rubs, clicks, or gallops. Lungs reveal use bilateral rhonchi. No wheezes or crackles. Breath sounds equal. Saturations 93%. Abdominal exam revealed normal bowel sounds. The abdomen was soft, non-tender, and without masses, organomegaly, or appreciable enlargement of the abdominal aorta. Extremities are intact. No cyanosis clubbing or edema. Skin is without rash or lesion. Neurologic examination cannot be adequately assessed as the patient's currently sedated and paralyzed. - Labs CBC & Chem 7: 08/12/21 00:47 08/12/21 00:47 Labs: Abnormal Lab Results - Last 24 Hours (Table) 08/11/21 08/11/21 08/11/21 Range/Units 04:10 07:50 12:01 WBC (3.8-10.6) k/uL RBC (3.80-5.40) m/uL ABG pCO2 (35-45) mmHg ABG pO2 (83-108) mmHg ABG HCO3 (21-25) mmol/L ABG Total CO2 (19-24) mmol/L ABG O2 Saturation (94-97) % Carbon Dioxide (22-30) mmol/L BUN (7-17) mg/dL Glucose (74-99) mg/dL POC Glucose (mg/dL) 142 H 182 H (75-99) mg/dL Ferritin 2591.0 H (10.0-291.0) ng/mL ALT (4-34) U/L Alkaline Phosphatase (38-126) U/L Total Protein (6.3-8.2) g/dL Albumin (3.5-5.0) g/dL 08/11/21 08/11/21 08/11/21 Range/Units 16:18 19:36 23:28 WBC (3.8-10.6) k/uL RBC (3.80-5.40) m/uL ABG pCO2 (35-45) mmHg ABG pO2 (83-108) mmHg ABG HCO3 (21-25) mmol/L ABG Total CO2 (19-24) mmol/L ABG O2 Saturation (94-97) % Carbon Dioxide (22-30) mmol/L BUN (7-17) mg/dL Glucose (74-99) mg/dL POC Glucose (mg/dL) 216 H 173 H 135 H (75-99) mg/dL Ferritin (10.0-291.0) ng/mL ALT (4-34) U/L Alkaline Phosphatase (38-126) U/L Total Protein (6.3-8.2) g/dL Albumin (3.5-5.0) g/dL 08/12/21 08/12/21 08/12/21 Range/Units 00:47 00:47 03:54 WBC 16.4 H (3.8-10.6) k/uL RBC 3.73 L (3.80-5.40) m/uL ABG pCO2 (35-45) mmHg ABG pO2 (83-108) mmHg ABG HCO3 (21-25) mmol/L ABG Total CO2 (19-24) mmol/L ABG O2 Saturation (94-97) % Carbon Dioxide 38 H (22-30) mmol/L BUN 49 H (7-17) mg/dL Glucose 126 H (74-99) mg/dL POC Glucose (mg/dL) 122 H (75-99) mg/dL Ferritin (10.0-291.0) ng/mL ALT 49 H (4-34) U/L Alkaline Phosphatase 148 H (38-126) U/L Total Protein 5.3 L (6.3-8.2) g/dL Albumin 2.2 L (3.5-5.0) g/dL 08/12/21 Range/Units 06:22 WBC (3.8-10.6) k/uL RBC (3.80-5.40) m/uL ABG pCO2 65 H (35-45) mmHg ABG pO2 63 L (83-108) mmHg ABG HCO3 40 H* (21-25) mmol/L ABG Total CO2 42 H (19-24) mmol/L ABG O2 Saturation 92.6 L (94-97) % Carbon Dioxide (22-30) mmol/L BUN (7-17) mg/dL Glucose (74-99) mg/dL POC Glucose (mg/dL) (75-99) mg/dL Ferritin (10.0-291.0) ng/mL ALT (4-34) U/L Alkaline Phosphatase (38-126) U/L Total Protein (6.3-8.2) g/dL Albumin (3.5-5.0) g/dL Assessment and Plan Plan: 1 Acute hypoxemic respiratory failure secondary to coronavirus associated p neumonia, status post intubation and mechanical ventilation on 08/05/2021. The patient was initially treated with Decadron 6 mg IV every 24 hours and Baricitinib per protocol. Noted the patient is also on Lovenox for DVT prophylaxis. Doppler of the lower extremities been negative. Chest x-ray d iffuse bilateral pulmonary infiltrates consistent with COVID-19 related pneumonia. A having a potentially superinfection. Moraxella catarrhalis was cultures and sputum. The patient was given IV Rocephin. There are be some interval worsening of infiltration in the right upper lobe. On today's ev aluation, the patient is on a PEEP of 61 and FiO2 of 90%. Blood gases was noted. Chest x-ray was noted. She remains hemodynamically stable. She is on Decadron. Baricitinib has been discontinued due to concerns of an infection. 2 ARDS secondary to COVID 19 related pneumonia. The patient's lungs are extremely noncompliant with elevated peak and static pressure 3 Moraxella catarrhalis in the sputum, not clear of true infection. Procal level remains low range to 0.3 and 0.4 4 Elevated inflammatory marker secondary to coronavirus infection. Note that inflammatory markers of been improving 5 History of essential hypertension. 6 History of hyperlipidemia. 7 History of diabetes mellitus. The patient is currently on Levemir insulin with adequate blood sugar control in addition to a sliding scale coverage. 8 History of hypothyroidism Plan: Continue ventilator support and drop the PEEP down to 16 and keep the FiO2 at 90%. Keep the tidal volume of 325. Monitor peak and static pressures, the levels are 33 and 31 respectively, essentially unchanged compared to yesterday Continue Decadron, the patient was taken off the Baricitinib due to concerns of an infection The patient is currently off paralytics Due to worsening of the pulmonary infiltration, I'm going to broaden the antibiotic coverage. I'm going to stop the IV Rocephin and give the patient IV cefepime which gives her better gram-negative coverage. Meanwhile, the patient will be getting another sputum Gram stain and culture. Selby sedation with propofol, no paralytics for now DulcolX suppository I'm going to discuss the issue with the family. I think we are at it hours PEG and trach as the patient has been intubated on 08/05/2021 and the patient is doing minimal if any progress for now. I am awaiting the patient gets slightly more stable with an improved PEEP went and oxygenation prior to proceeding with a PEG and trach. Recheck inflammatory markers showed improvement in the markers in a.m. in addition to labs in a.m. and a blood gas in a.m. and the chest x-ray in a.m. Condition is critical. Family will be updated on her condition. I'll comes obviously poor because of severe pneumonia related to COVID 19 in addition to ARDS. We'll continue to follow. There is a critically care evaluation that was performed and more than 30 minutes Time with Patient: Greater than 30 Time with Patient: Greater than 30
[2021-08-12 08:10] LABS: Glucose,Whole Blood 111 mg/dL (75-99)
--- NOTE | 2021-08-12 08:37 | P.PN ---
Subjective Progress Note Date: 08/11/21 This is a 76-year-old female who presented to emergency room with cough, congestion, dyspnea and weakness and fatigue over several weeks. Approximately week ago patient took a home Covid test which indicated that she was positive. She has not received Covid vaccine or treatment for the positive Covid test. When symptoms worsened she decided to present to the ER for evaluation and treatment. She was initially placed on BiPAP in the intensive care unit and subsequently been intubated. She is currently paralyzed with cisatracurium, sedated with propofol and utilizing Toradol IV push for pain management. Currently mechanically ventilated on 80% FiO2. Patient is afebrile 96.9, respiratory rate of 26, blood pressure is stable at 109/51, maintain oxygen saturation of 90% and entitle CO2 of 28. Most recent set of vital signs WC count of 15.5, hematocrit of 35.6, hemoglobin 12.0, platelet count 119. Chemistry panel reveals a sodium 138, potassium 3.8, BUN of 19, creatinine 0.72, GFR 83, AST of 99, ELT 106, alk phos 131, LDH 847. TSH of 8.37. T4 0.5, pro- calcitonin 0.34 08/08/2021 remains mechanical ventilator-dependent, FiO2 decreased to 65%, PEEP remains at 20. Continues on Nimbex and diprovan drips. Chest x-ray reported patchy bilateral infiltrate with diffuse interstitial pattern, tiny right-sided pleural effusion, received Lasix. Maintained on Rocephin (Moraxella catarrhalis in the sputum) , Covid cocktail with Baricitinib discontinued. Blood sugars elevated. Afebrile, WBC 13.3. Pro-calcitonin 0.34. 08/09/2021 continues on FiO2 65% with PEEP of 20, Nimbex and diprovan drips. Chest x-ray reporting persistent patchy bilateral infiltrate with diffuse interstitial pattern. Received additional Lasix today Blood sugars elevated, improving, A1c 8.4. Afebrile, WBC 14.3. D-dimer 0.77, ferritin increased to 2512, LDH decreased to 606, CRP increased to 21.2. LFTs decreasing with the exception of alkaline phosphatase, increased to 171. ProBNP 453. Receiving tube feeds to call, tolerating well with minimal to no residuals, stooling. 08/10/2021 remains vent dependent, FiO2 60%/+18 of PEEP. Maintained on Nimbex and diprovan drips. Chest x-ray noted, unchanged. Currently afebrile, T-max 99.1, WBC trending down, 12.7. BUN 24, and 0.74. Repeat pro-calcitonin 0.31. Additional Levemir added to med regimen yesterday, Blood sugars controlled. Received Lasix IV push yesterday again, diuresed well with 24-hour I&O reflecting a negative fluid balance. Sodium within normal limits, 142. 08/11/2021 yesterday patient of placed on Nimbex holiday, during the night unable to tolerate became asynchronous with the ventNimbex resumed. Diprovan drip continues. Maintained on FiO2 65% with PEEP decreased to 17. Maintained on Rocephin ,Covid cocktail. Chest x-ray reporting stable diffuse bilateral infiltrate. Inflammatory markers decreasing.Tolerating tube feeds minimal to no residual. Levemir increased yesterday with blood sugars controlled. Afebrile. Objective - Vital Signs Vital signs: Vital Signs Temp 98.7 F 08/11/21 12:00 Pulse 87 08/11/21 15:00 Resp 26 H 08/11/21 15:00 BP 116/68 08/11/21 15:00 Pulse Ox 92 L 08/11/21 15:00 Intake & Output 08/10/21 08/11/21 08/11/21 18:59 06:59 18:59 Intake Total 6621.129 9661.598 452.181 Output Total 890 1340 570 Balance 196.755 -280.402 -117.819 Weight 95 kg Intake: IV 276 276 138 Pressure bag 36 36 18 Sodium Chloride 0.9% 1, 240 240 120 000 ml @ 20 mls/hr IV . Q24H [facility] Rx#:[id number] Intake, IV Titration 389.755 425.598 270.181 Amount Cisatracurium 200 mg In 97.871 18.428 83.701 Sodium Chloride 0.9% 180 ml @ 2 MCG/KG/MIN 10.92 mls/hr IV .[id number] [facility] Rx #:[id number] cefTRIAXone 1 gm In 50 Sodium Chloride 0.9% 50 ml @ 100 mls/hr IVPB Q24HR [facility] Rx#:[id number] propofoL 1,000 mg In 291.884 407.170 136.48 Empty Bag 1 bag @ Titrate IV .Q0M [facility] Rx#: [id number] Tube Feeding 271 268 44 Other 150 90 Output: Urine 890 1340 570 Other: Voiding Method Indwelling Catheter Indwelling Catheter Indwelling Catheter ABP, PAP, CO, CI - Last Documented Arterial Blood Pressure 123/54 - Exam - Exam: limited Exam r/t to COVID GENERAL: intubated, sedated and paralyzed, NAD Lungs: Mechanically ventilated Heart: Regular rate and rhythm per residential monitor Abdomen: Soft, nondistended Extremities: No pitting or edema. Neurological: Sedated and paralyzed - Labs CBC & Chem 7: 08/12/21 00:47 08/12/21 00:47 Labs: Abnormal Lab Results - Last 24 Hours (Table) 08/10/21 08/10/21 08/11/21 Range/Units 20:50 23:15 04:10 WBC 19.1 H (3.8-10.6) k/uL Neutrophils # 17.9 H (1.3-7.7) k/uL Lymphocytes # 0.4 L (1.0-4.8) k/uL Fibrinogen (200-500) mg/dL D-Dimer (<0.60) mg/L FEU ABG pH (7.35-7.45) ABG pCO2 (35-45) mmHg ABG pO2 (83-108) mmHg ABG HCO3 (21-25) mmol/L ABG Total CO2 (19-24) mmol/L ABG O2 Saturation (94-97) % Carbon Dioxide (22-30) mmol/L BUN (7-17) mg/dL Glucose (74-99) mg/dL POC Glucose (mg/dL) 126 H 126 H (75-99) mg/dL Ferritin (10.0-291.0) ng/mL ALT (4-34) U/L Alkaline Phosphatase (38-126) U/L C-Reactive Protein (<1.0) mg/dL Total Protein (6.3-8.2) g/dL Albumin (3.5-5.0) g/dL 08/11/21 08/11/21 08/11/21 Range/Units 04:10 04:10 04:12 WBC (3.8-10.6) k/uL Neutrophils # (1.3-7.7) k/uL Lymphocytes # (1.0-4.8) k/uL Fibrinogen 937 H (200-500) mg/dL D-Dimer 0.91 H (<0.60) mg/L FEU ABG pH (7.35-7.45) ABG pCO2 (35-45) mmHg ABG pO2 (83-108) mmHg ABG HCO3 (21-25) mmol/L ABG Total CO2 (19-24) mmol/L ABG O2 Saturation (94-97) % Carbon Dioxide 37 H (22-30) mmol/L BUN 33 H (7-17) mg/dL Glucose 151 H (74-99) mg/dL POC Glucose (mg/dL) 140 H (75-99) mg/dL Ferritin 2591.0 H (10.0-291.0) ng/mL ALT 64 H (4-34) U/L Alkaline Phosphatase 175 H (38-126) U/L C-Reactive Protein 42.0 H (<1.0) mg/dL Total Protein 5.4 L (6.3-8.2) g/dL Albumin 2.4 L (3.5-5.0) g/dL 08/11/21 08/11/21 08/11/21 Range/Units 05:30 07:50 12:01 WBC (3.8-10.6) k/uL Neutrophils # (1.3-7.7) k/uL Lymphocytes # (1.0-4.8) k/uL Fibrinogen (200-500) mg/dL D-Dimer (<0.60) mg/L FEU ABG pH 7.31 L (7.35-7.45) ABG pCO2 77 H* (35-45) mmHg ABG pO2 65 L (83-108) mmHg ABG HCO3 39 H (21-25) mmol/L ABG Total CO2 41 H (19-24) mmol/L ABG O2 Saturation 90.9 L (94-97) % Carbon Dioxide (22-30) mmol/L BUN (7-17) mg/dL Glucose (74-99) mg/dL POC Glucose (mg/dL) 142 H 182 H (75-99) mg/dL Ferritin (10.0-291.0) ng/mL ALT (4-34) U/L Alkaline Phosphatase (38-126) U/L C-Reactive Protein (<1.0) mg/dL Total Protein (6.3-8.2) g/dL Albumin (3.5-5.0) g/dL Microbiology - Last 24 Hours (Table) 08/04/21 13:50 Blood Culture - Final Blood No Growth after 144 hours 08/04/21 13:40 Blood Culture - Final Blood No Growth after 144 hours Assessment and Plan Assessment: Acute Covid pneumonia, sputum culture reporting Moraxella Catarrhalis Acute hypoxic respiratory failure secondary to the above, mechanical ventilator dependent ARDS secondary to acute COVID-19 pneumonia Diabetes mellitus type 2, hyperglycemic, hemoglobin A1c 8.4 Hypothyroidism Essential hypertension Hyperlipidemia Plan: Continue on current medication regime ,monitoring and symptomatic treatment. Continue covid cocktail. ICU management as per cloth hand- discussion of trach and PEG with family pending. Continue with close monitoring of Accu-Cheks, with no change today in levemir insulin. Prognosis guarded given multiple complex medical issues. The impression and plan of care has been dictated as directed. : I performed a history and examination of this patient, discussed the same with the dictator. I agree with the dictator's note ,documented as a scribe. Any additional findings or plans will be noted.
[2021-08-12] MEDS: CHLORHEXIDINE GLUCONATE 15 ML CUP MUCOUS MEM SCH ×2 (08:40→20:12)
[2021-08-12] MEDS: ENOXAPARIN 40 MG/0.4 ML SYRINGE SQ SCH (08:40)
[2021-08-12] MEDS: CEFEPIME 2 GM in SODIUM CHLORIDE 0.9% 100 ML IVPB SCH ×2 (08:41→20:12)
[2021-08-12] MEDS: DEXAMETHASONE SOD PHOSPHATE 10 MG/ML 1 ML VIAL IVP SCH (08:41)
[2021-08-12] MEDS: ZINC SULFATE 220 MG CAP PO SCH (08:41)
[2021-08-12] MEDS: ASCORBIC ACID 500 MG TAB PO SCH (08:41)
[2021-08-12] MEDS: PANTOPRAZOLE 40 MG/10 ML VIAL IVP SCH (08:41)
[2021-08-12] MEDS: CHOLECALCIFEROL 125 MCG (5000 IU) TABLET PO SCH (08:41)
--- NOTE | 2021-08-12 08:57 | P.PN ---
Subjective Progress Note Date: 08/12/21 This is a 76-year-old female who presented to emergency room with cough, congestion, dyspnea and weakness and fatigue over several weeks. Approximately week ago patient took a home Covid test which indicated that she was positive. She has not received Covid vaccine or treatment for the positive Covid test. When symptoms worsened she decided to present to the ER for evaluation and treatment. She was initially placed on BiPAP in the intensive care unit and subsequently been intubated. She is currently paralyzed with cisatracurium, sedated with propofol and utilizing Toradol IV push for pain management. Currently mechanically ventilated on 80% FiO2. Patient is afebrile 96.9, respiratory rate of 26, blood pressure is stable at 109/51, maintain oxygen saturation of 90% and entitle CO2 of 28. Most recent set of vital signs WC count of 15.5, hematocrit of 35.6, hemoglobin 12.0, platelet count 119. Chemistry panel reveals a sodium 138, potassium 3.8, BUN of 19, creatinine 0.72, GFR 83, AST of 99, ELT 106, alk phos 131, LDH 847. TSH of 8.37. T4 0.5, pro- calcitonin 0.34 08/08/2021 remains mechanical ventilator-dependent, FiO2 decreased to 65%, PEEP remains at 20. Continues on Nimbex and diprovan drips. Chest x-ray reported patchy bilateral infiltrate with diffuse interstitial pattern, tiny right-sided pleural effusion, received Lasix. Maintained on Rocephin (Moraxella catarrhalis in the sputum) , Covid cocktail with Baricitinib discontinued. Blood sugars elevated. Afebrile, WBC 13.3. Pro-calcitonin 0.34. 08/09/2021 continues on FiO2 65% with PEEP of 20, Nimbex and diprovan drips. Chest x-ray reporting persistent patchy bilateral infiltrate with diffuse interstitial pattern. Received additional Lasix today Blood sugars elevated, improving, A1c 8.4. Afebrile, WBC 14.3. D-dimer 0.77, ferritin increased to 2512, LDH decreased to 606, CRP increased to 21.2. LFTs decreasing with the exception of alkaline phosphatase, increased to 171. ProBNP 453. Receiving tube feeds to call, tolerating well with minimal to no residuals, stooling. 08/10/2021 remains vent dependent, FiO2 60%/+18 of PEEP. Maintained on Nimbex and diprovan drips. Chest x-ray noted, unchanged. Currently afebrile, T-max 99.1, WBC trending down, 12.7. BUN 24, and 0.74. Repeat pro-calcitonin 0.31. Additional Levemir added to med regimen yesterday, Blood sugars controlled. Received Lasix IV push yesterday again, diuresed well with 24-hour I&O reflecting a negative fluid balance. Sodium within normal limits, 142. 08/11/2021 yesterday patient of placed on Nimbex holiday, during the night unable to tolerate became asynchronous with the ventNimbex resumed. Diprovan drip continues. Maintained on FiO2 65% with PEEP decreased to 17. Maintained on Rocephin ,Covid cocktail. Chest x-ray reporting stable diffuse bilateral infiltrate. Inflammatory markers decreasing.Tolerating tube feeds minimal to no residual. Levemir increased yesterday with blood sugars controlled. Afebrile. 08/12/2021 patient was given another paralytic holiday yesterday and continues off of Nimbex. During the night, difficulty maintaining O2 sats, cuff leak discovered, required higher FiO2. Maintained on diprovan. Currently FIO2 90%, PEEP of 16. Chest x-ray reporting bilateral moderate pulmonary edema, possibly worsening, antibiotics adjusted, now on cefepime. Maintained on Covid cocktail. Blood sugars controlled. Renal function stable. Objective - Vital Signs Vital signs: Vital Signs Temp 99.3 F 08/12/21 08:00 Pulse 86 08/12/21 08:00 Resp 34 H 08/12/21 08:00 BP 119/68 08/12/21 08:00 Pulse Ox 90 L 08/12/21 08:00 Intake & Output 08/11/21 08/12/21 08/12/21 18:59 06:59 18:59 Intake Total 758.181 878.243 43 Output Total 812 425 40 Balance -53.819 453.243 3 Weight 95.9 kg Intake: IV 276 255 20 Pressure bag 36 15 Sodium Chloride 0.9% 1, 240 240 20 000 ml @ 20 mls/hr IV . Q24H [facility] Rx#:[id number] Intake, IV Titration 370.181 264.243 Amount Cisatracurium 200 mg In 83.701 Sodium Chloride 0.9% 180 ml @ 2 MCG/KG/MIN 10.92 mls/hr IV .[id number] [facility] Rx #:[id number] cefTRIAXone 1 gm In 50 Sodium Chloride 0.9% 50 ml @ 100 mls/hr IVPB Q24HR [facility] Rx#:[id number] propofoL 1,000 mg In 236.48 264.243 Empty Bag 1 bag @ Titrate IV .Q0M [facility] Rx#: [id number] Tube Feeding 112 299 23 Other 60 Output: Urine 812 425 40 Other: Voiding Method Indwelling Catheter Indwelling Catheter # Bowel Movements 1 ABP, PAP, CO, CI - Last Documented Arterial Blood Pressure 129/52 - Exam - Exam: limited Exam r/t to COVID GENERAL: intubated, sedated, NAD Lungs: Mechanically ventilated Heart: Regular rate and rhythm per corporate compliance manager Abdomen: Soft, nondistended Extremities: No edema Neurological: Sedated - Labs CBC & Chem 7: 08/12/21 00:47 08/12/21 00:47 Labs: Abnormal Lab Results - Last 24 Hours (Table) 08/11/21 08/11/21 08/11/21 Range/Units 04:10 12:01 16:18 WBC (3.8-10.6) k/uL RBC (3.80-5.40) m/uL ABG pCO2 (35-45) mmHg ABG pO2 (83-108) mmHg ABG HCO3 (21-25) mmol/L ABG Total CO2 (19-24) mmol/L ABG O2 Saturation (94-97) % Carbon Dioxide (22-30) mmol/L BUN (7-17) mg/dL Glucose (74-99) mg/dL POC Glucose (mg/dL) 182 H 216 H (75-99) mg/dL Ferritin 2591.0 H (10.0-291.0) ng/mL ALT (4-34) U/L Alkaline Phosphatase (38-126) U/L Total Protein (6.3-8.2) g/dL Albumin (3.5-5.0) g/dL 08/11/21 08/11/21 08/12/21 Range/Units 19:36 23:28 00:47 WBC 16.4 H (3.8-10.6) k/uL RBC 3.73 L (3.80-5.40) m/uL ABG pCO2 (35-45) mmHg ABG pO2 (83-108) mmHg ABG HCO3 (21-25) mmol/L ABG Total CO2 (19-24) mmol/L ABG O2 Saturation (94-97) % Carbon Dioxide (22-30) mmol/L BUN (7-17) mg/dL Glucose (74-99) mg/dL POC Glucose (mg/dL) 173 H 135 H (75-99) mg/dL Ferritin (10.0-291.0) ng/mL ALT (4-34) U/L Alkaline Phosphatase (38-126) U/L Total Protein (6.3-8.2) g/dL Albumin (3.5-5.0) g/dL 08/12/21 08/12/21 08/12/21 Range/Units 00:47 03:54 06:22 WBC (3.8-10.6) k/uL RBC (3.80-5.40) m/uL ABG pCO2 65 H (35-45) mmHg ABG pO2 63 L (83-108) mmHg ABG HCO3 40 H* (21-25) mmol/L ABG Total CO2 42 H (19-24) mmol/L ABG O2 Saturation 92.6 L (94-97) % Carbon Dioxide 38 H (22-30) mmol/L BUN 49 H (7-17) mg/dL Glucose 126 H (74-99) mg/dL POC Glucose (mg/dL) 122 H (75-99) mg/dL Ferritin (10.0-291.0) ng/mL ALT 49 H (4-34) U/L Alkaline Phosphatase 148 H (38-126) U/L Total Protein 5.3 L (6.3-8.2) g/dL Albumin 2.2 L (3.5-5.0) g/dL 08/12/21 Range/Units 08:08 WBC (3.8-10.6) k/uL RBC (3.80-5.40) m/uL ABG pCO2 (35-45) mmHg ABG pO2 (83-108) mmHg ABG HCO3 (21-25) mmol/L ABG Total CO2 (19-24) mmol/L ABG O2 Saturation (94-97) % Carbon Dioxide (22-30) mmol/L BUN (7-17) mg/dL Glucose (74-99) mg/dL POC Glucose (mg/dL) 111 H (75-99) mg/dL Ferritin (10.0-291.0) ng/mL ALT (4-34) U/L Alkaline Phosphatase (38-126) U/L Total Protein (6.3-8.2) g/dL Albumin (3.5-5.0) g/dL Assessment and Plan Assessment: Acute Covid pneumonia, sputum culture reporting Moraxella Catarrhalis Acute hypoxic respiratory failure secondary to the above, mechanical ventilator dependent ARDS secondary to acute COVID-19 pneumonia Diabetes mellitus type 2, hyperglycemic, hemoglobin A1c 8.4 Hypothyroidism Essential hypertension Hyperlipidemia Plan: Continue on current medication regime ,monitoring and symptomatic treatment. Continue covid cocktail. ICU management as per prop sawyer- discussion of trach and PEG with family pending. Prognosis guarded given multiple complex medical issues. The impression and plan of care has been dictated as directed. : I performed a history and examination of this patient, discussed the same with the dictator. I agree with the dictator's note ,documented as a scribe. Any additional findings or plans will be noted.
--- NOTE | 2021-08-12 10:14 | P.PCN ---
Preoperative Diagnosis: COVID pneumonia Postoperative Diagnosis: COVID pneumonia Procedure(s) Performed: Arterial Line: Anesthesia: local Surgeon: Tank Dumont [employer] Supervisor #1: Kellie Patel Estimated Blood Loss (ml): 0 Condition: critical Disposition: ICU Description of Procedure: Arterial Line: Indication: Hemodynamic monitoring. A time-out was completed verifying correct patient, procedure, site, positioning, and implant(s) or special equipment if applicable. Allens test was performed to ensure adequate perfusion. The patients left wrist was prepped and draped in sterile fashion. 1% Lidocaine was used to anesthetize the area. An 18G Arrow arterial line was introduced into the radial artery. The catheter was threaded over the guide wire and the needle was removed with appropriate pulsatile blood return. Blood loss was minimal. The catheter was then sutured in place to the skin and a sterile dressing applied. Perfusion to the extremity distal to the point of catheter insertion was checked and found to be adequate. The patient tolerated the procedure well and there were no complications.
[2021-08-12 12:01] LABS: Glucose,Whole Blood 106 mg/dL (75-99)
[2021-08-12 15:57] LABS: Glucose,Whole Blood 129 mg/dL (75-99)
[2021-08-12] MEDS: SODIUM CHLORIDE 0.9% 1,000 ML IV SCH (18:40)
[2021-08-12 19:58] LABS: Glucose,Whole Blood 134 mg/dL (75-99)
[2021-08-13] MEDS: ALBUTEROL HFA INHALER INHALATION SCH ×7 (00:10→23:38)
[2021-08-13 00:21] LABS: Glucose,Whole Blood 104 mg/dL (75-99)
[2021-08-13] MEDS: ARTIFICIAL TEARS-HYPROMELLOSE DROPS 15 ML BTL BOTH EYES SCH ×7 (00:57→23:43)
[2021-08-13] MEDS: INSULIN ASPART (NovoLOG) 100 UNIT/ML VIAL SQ SCH ×7 (00:57→23:43)
[2021-08-13 04:16] LABS: Glucose,Whole Blood 116 mg/dL (75-99)
[2021-08-13 04:28] LABS: Basophils # (A) 0.1 k/uL (0-0.2); Basophils % (A) 1 %; Eosinophils # (A) 0.2 k/uL (0-0.7); Eosinophils % (A) 1 %; HCT 37.2 % (34.0-46.0); HGB 11.6 gm/dL (11.4-16.0); Lymphocytes # (A) 0.4 k/uL (1.0-4.8); Lymphocytes % (A) 3 %; MCH 30.4 pg (25.0-35.0); MCHC 31.2 g/dL (31.0-37.0); MCV 97.5 fL (80.0-100.0); Mean Platelet Volume 9.5; Monocytes # (A) 0.4 k/uL (0-1.0); Monocytes % (A) 3 %; Neutrophils # (A) 12.1 k/uL (1.3-7.7); Neutrophils % (A) 91 %; Platelet Count 294 k/uL (150-450); RBC 3.82 m/uL (3.80-5.40); RDW 14.1 % (11.5-15.5); WBC 13.3 k/uL (3.8-10.6)
[2021-08-13 04:48] LABS: Albumin 2.4 g/dL (3.5-5.0); Calcium 9.3 mg/dL (8.4-10.2); Potassium 4.8 mmol/L (3.5-5.1); Total Bilirubin 0.3 mg/dL (0.2-1.3); Total Protein 5.6 g/dL (6.3-8.2)
[2021-08-13 05:19] LABS: C Reactive Protein 39.6 mg/dL (<1.0)
[2021-08-13 05:33] LABS: ABG Base Excess 13.7 mmol/L; ABG HCO3 39 mmol/L (21-25); ABG Oxygen Saturation 91.8 % (94-97); ABG PH 7.34 (7.35-7.45); ABG PO2 63 mmHg (83-108); ABG TCO2 42 mmol/L (19-24); Allen Test Performed? Yes
[2021-08-13 05:35] LABS: ABG PCO2 73 mmHg (35-45)
[2021-08-13] MEDS: LEVOTHYROXINE 100 MCG TAB OG-TUBE SCH (06:38)
[2021-08-13] MEDS: INSULIN DETEMIR (LEVEMIR) 100 UNIT/ML SYR SQ SCH ×2 (06:38→20:40)
--- NOTE | 2021-08-13 07:23 | XR ---
EXAMINATION TYPE: XR chest 1V portable DATE OF EXAM: 08/13/2021 COMPARISON: 08/12/2021 HISTORY: Covid TECHNIQUE: Single frontal view of the chest is obtained. FINDINGS: There are diffuse partially consolidative opacities in both lungs however there has been m ild to moderate interval improvement compared to previous. ET tube is 3.3 cm above the kay. The NG tube within the stomach. The heart size is normal. There is no pneumothorax. The osseous structures are intact IMPRESSION: Bilateral airspace infiltrates with mild to moderate interval improvement compared to pr evious.
--- NOTE | 2021-08-13 07:52 | P.PN ---
Subjective Progress Note Date: 08/13/21 This is a 76-year-old female patient who presented to us on 08/04/2021 for shortness of breath and hypoxemia. The patient tested positive COVID-19 on 07/30/2021. Noted the patient was feeling sick prior to that. She was initially on a BiPAP for support as the patient was quite hypoxic. Her comorbid conditions included diabetes mellitus, hypertension, hypothyroidism and hyperlipidemia. Chest x-ray also showed elevation of the right hemidiaphragm along with diffuse bilateral airspace disease consistent with COVID-19 related pneumonia. Within a few days of admission, the patient decompensated and the patient to be intubated and placed on mechanical ventilator. The patient was intubated on 08/05/2021 and the patient remains intubated, sedated, paralyzed this point in time. Note that the patient is an assist-control mode of mechanical ventilation at the rate of 26 with a tidal volume of 400 and FiO2 of 80% with a PEEP of 20. Chest x-ray was noted. Blood gases was noted. The patient remains on propofol running at 40 mcg/kg per minute and the patient is also Nimbex at 1.5 mcg/kg per minute. Normal saline is running at the rate of 80 mL an hour and the patient is also on enteral feeding for nutritional support with vitamin AF at the rate of 29 mL an hour, goal. Inflammatory markers were modestly elevated with an LDH of 847, CRP of 18.7 from yesterday. Chest x-ray was consistent with diffuse bilateral pulmonary infiltrates. Sputum groover and turner to be positive for Moraxella catarrhalis and the patient's pro calcitonin level was at 0.34. At this point in time, the patient is on Baricitinib was started on 08/05/2021 in addition to Decadron 6 mg IV every 24 hours. The patient is also on Lovenox 40 mg subcu for DVT prophylaxis. No antibiotic coverage is offered to this patient this point in time. The white cell count from yesterday was elevated at 15. The patient also had a consent form and of mild transaminitis. Inflammatory markers have been gradually improving. Note that the patient from yesterday was down to 847, troponins are negative, TSH wasn't 8.3 with a free T4 of 0.51. The pro calcitonin on several occasions was checked and it remained at 0.3 and 0.4 range. On today's evaluation of 08/08/2021, the patient remains essentially on the same ventilator setting. The patient is on a assist-control mode at the rate of 26 with a tidal volume 400 and FiO2 of 65% with a PEEP of 20. Peak airway pressure is 46, static airway pressures around 45. The blood gases from today shows a pH of 7.39 with a pCO2 of 42 and pO2 of 16 1. Chest x- ray showed diffuse bilateral pulmonary infiltrates. ET tube is in a good location. Orogastric tube is in a good location. The patient also has a triple-lumen catheter in the subclavian vein on the left. In comparison to yesterday's chest x-ray, there is no major interval change. In terms of his blood work, no significant abnormalities noted, inflammatory markers were not checked today, the white cell count is at 15.3 and the patient is afebrile. 08/09/2021, I am seeing the patient for a follow-up. As mentioned earlier, the patient is a simple COVID 19 related pneumonia with secondary respiratory failure and ARDS and the patient is currently intubated, on a mechanical ventilator. On today's evaluation, the patient remains sedated and the patient is currently on propofol running at 45 mcg/kg per minute. The patient is also on Nimbex at 1.5 respiratory per minute pH is adequately sedated and paralyzed. The patient is an assist-control mode of mechanical ventilation. Her current respiratory rate is at 26 with a tidal volume of 350 and the patient's FiO2 is currently at 65% with a PEEP of 20. The chest x-ray still showing pulmonary infiltrates most on the lower lobes. No evidence of any pneumothorax. ET tube is in a good location. The patient has a left subclavian triple-lumen catheter in place. On yesterday's evaluation, I eliminated the Baricitinib as the patient had Moraxella catarrhalis in the sputum. I added IV Rocephin. I kept the patient on Decadron. No new cultures are available for now. The white cell count is at 14. D-dimer is low at 0.7. The LDH level is o n the decline and is currently down to 606 and a CRP level is at 21. Rest of the blood work and electrolytes are all within normal limits. The patient is afebrile. The patient is receiving enteral feeding for nutritional support. Currently the patient is on vitamin AF at the rate of 29 mL an hour and the patient shows no abdominal distention. She is stooling. The peak airway pressure today was 39 and the static airway pressure was 37 and this is improved as the patient was given a lower tidal volume yesterday and the ventilator changes were done accordingly. She was given a dose of Lasix yesterday and following that the patient had adequate diuresis and the patient despite that is still in a positive fluid balance. I'm going to give her another dose of Lasix 40 mg IV push every 122 doses. 08/10/2021, the patient is being seen for a follow-up. On today's evaluation, the patient remains sedated with propofol running at 50 mcg/kg per minute and the patient is also Nimbex at 1.5 mcg/kg/m. She remains on a mechanical ventilator. Some ventilator changes were done yesterday. The current tidal volume is down to 325 with a rate of 26 and a PEEP of 18 with an FiO2 of 60%. The peak airway pressures 35. The static pressures 30. Her chest x-ray remains unchanged. The blood gases showed a pH of 7.34 with a pCO2 of 69 and pO2 of 68. The patient is diuresis with IV Lasix yesterday and the neck fluid balance is - 710 mL over the past 24 hours. She is receiving enteral feeding for nutritional support. She hasn't had a bowel movement yet. The rest of the blood work from today is essentially benign. White cell count is at 3.9 with a hemoglobin of 12 and BUN is a 24 with a creatinine of 0.7 and the sodium level of 142. The patient remains on Decadron. The inflammatory markers were essentially on the decline. D-dimer, LDH and CRP were all at the lower level. No other significant events overnight. The patient is still vent dependent due to COVID 19 related pneumonia/ARDS. She is afebrile. She is hemodynamically stable. No other issues otherwise. 08/11/2021, I'm seeing the patient for a follow-up. He remains sedated and paralyzed. Noted the patient was taken off paralytics throughout the day yesterday. At around midnight the patient desaturated and she was getting asynchronous a mechanical ventilator and as such the Nimbex was restarted. Currently Nimbex is running at the rate of 2 mcg/kg per minute. The patient is also on propofol at 45 mcg/kg per minute. The patient remains on a mechanical ventilator. On today's evaluation, she is an assist-control mode at the rate of 26, PEEP is currently at 17 which is slightly lower compared to yesterday and FiO2 is currently at 65% and her tidal volume is currently at 325. There peak air pressure is 35 which is essentially the same as yesterday. Static airway pressure continues to be quite elevated. On today's evaluation, the chest x-ray shows some limited improvement in her infiltration in the lung bases bilaterally. Blood gases from today shows a pH of 7.31 with a pCO2 of 77 and pO2 of 65 and this was essentially done on the above-mentioned ventilator setting. D-dimer is down to 0.9. Inflammatory markers including LDH is down to 619 and the CRP is at 42. Renal function is stable. Electrolytes are stable. LFTs show some mild elevation of the alkaline phosphatase although this has been stable. The patient continues to receive enteral feeding for nutritional support. The patient is tolerating her enteral feeding. She is not stooling. She is not having a lot of residual. Abdomen is nondistended. She was given Lasix yesterday and the fluid balance as noted today has been -83 mL over the past 24 hours. Note that her urine output was in the order of 2.2 L over the p ast 24 hours. She is receiving Lasix daily basis based on her overall fluid status and fluid balance. She is afebrile. No other significant events otherwise for now. Blood sugar control is with Levemir insulin 30 units and the patient is receiving 10 units of Levemir at bedtime. She is also receiving a sliding scale coverage. The sputum culture was positive for Moraxella catarrhalis and the patient is currently on IV Rocephin. The patient remains on Decadron at a dose of 6 mg IV on a daily basis. 08/12/2021 the patient remains sedated and she's been off paralytics for the past 24 hours. I took her off paralytics as yesterday. She remains however on propofol which is currently running at 40 mL for. 45 mcg/kg per minute. She remains on a mechanical ventilator. Overnight, she had a cuff leak which caused significant oxygen desaturation. Based on that, the patient was placed on 100% FiO2. This morning, her efforts is currently down to 90% and his tidal volumes at 325 with a rate of 26 and a PEEP of 16. Blood gases done earlier this morning showed a pH of 7.4 with a pCO2 of 65 and pO2 of 63. Chest x-ray showing diffuse bilateral pulmonary infiltrates and there is some interval worsening in the right upper lobe pulmonary infiltration. Note that the earlier sputum that she'll Moraxella catarrhalis and the patient is currently on IV Rocephin. Meanwhile, the pro-calcitonin level was mildly elevated at 0.31 and a repeat level will be obtained to yesterday. In terms of her COVID 19 infection, the patient is still on Decadron. The patient was on Baricitinib and this was discontinued due to ongoing lung infection and presence of axillae in the sputum. She is currently afebrile. She is hemodynamically stable on no pressors. Her overall fluid balance over the past 24 hours has been in the order of 399 mL positive. The patient is producing adequate urine output. The patient is also stooling and she was given laxatives yesterday. She remains on enteral feeding for nutritional support. She is receiving iron and vitamin AF at the rate of 22 mL an hour. On today's blood work, white cell count is 16 with slightly improved compared to yesterday with a hemoglobin of 11.4. Her d- dimer from yesterday was 0.9. Coagulation profile was essentially within normal limits. BUN is a 49 with a creatinine of 0.8. Serum bicarbonate was 38 with a sodium level of 141. She remains on Levemir insulin 30 units daily in the morning and 10 units at nighttime. She is also on a scale. She is on Lovenox for DVT prophylaxis. IV fluids are currently at KVO at 20 mL an hour. 08/13/2021 patient is essentially clinically stable and there is no significant change in her condition since yesterday. She remains on the same mechanical ventilator setting. She is still allowed permissive hypercapnia. The tidal volumes of 325 with a rate of 26 and a PEEP of 16 with an FiO2 of 90%. PH is at 7.34 with a pCO2 of 73 and pO2 of 63. Peak airway pressures 36, static pr essures 33. Chest x-ray showing diffuse bilateral pulmonary infiltrates. She remains on antibiotics regarding Moraxella catarrhalis in his sputum and currently she is on IV cefepime. She remains sedated with propofol running at 45 mcg/kg per minute and the patient off Nimbex. The patient remains on Decadron. She was taken off Baricitinib due to concerns of an underlying infection. The patient had follow-up inflammatory markers today. The LDH level today is at 563 and the CRP 39.6. Renal function stable. She is tolerating enteral feeding for nutritional support. She is on vitamin AF. She was given a laxative yesterday to assist her with bowel movement activity. IV fluids remain at KVO. The patient is afebrile. Rest of the blood work essentially stable. I will say the patient has not shown any significant progress since she was intubated on 08/05/2021. Her d-dimer today is at 1.0. Her white cell count today is at 13.3 with a hemoglobin of 11.6 which is essentially stable. Objective - Vital Signs Vital signs: Vital Signs Temp 98.5 F 08/12/21 20:00 Pulse 88 08/13/21 07:00 Resp 30 H 08/13/21 07:00 BP 122/63 08/12/21 10:00 Pulse Ox 93 L 08/13/21 07:00 Intake & Output 08/12/21 08/13/21 08/13/21 18:59 06:59 18:59 Intake Total 642 787.837 45 Output Total 617 345 30 Balance 25 442.837 15 Weight 95.9 kg Intake: IV 250 253 23 Pressure bag 30 33 3 Sodium Chloride 0.9% 1, 220 220 20 000 ml @ 20 mls/hr IV . Q24H [facility] Rx#:[id number] Intake, IV Titration 300 179.837 Amount Cefepime 2 gm In Sodium 100 Chloride 0.9% 100 ml @ 25 mls/hr IVPB Q12H [facility] Rx# :[id number] propofoL 1,000 mg In 200 179.837 Empty Bag 1 bag @ Titrate IV .Q0M [facility] Rx#: [id number] Tube Feeding 92 265 22 Other 90 Output: Urine 617 345 30 Other: Voiding Method Indwelling Catheter Indwelling Catheter ABP, PAP, CO, CI - Last Documented Arterial Blood Pressure 116/43 - Exam Gen. appearance, No acute distress, sedated and paralyzed, with an orally placed endotracheal tube and NG tube. HEENT examination is grossly unremarkable. Neck supple. Full range of motion. No adenopathy thyromegaly or neck vein distention. Cardiac exam revealed the PMI to be normally situated and sized. The rhythm was regular and no extrasystoles were noted during several minutes of auscultation. The first and second heart sounds were normal and physiologic splitting of the second heart sound was noted. There were no murmurs, rubs, clicks, or gallops. Lungs reveal use bilateral rhonchi. No wheezes or crackles. Breath sounds equal. Saturations 93%. Abdominal exam revealed normal bowel sounds. The abdomen was soft, non-tender, and without masses, organomegaly, or appreciable enlargement of the abdominal aorta. Extremities are intact. No cyanosis clubbing or edema. Skin is without rash or lesion. Neurologic examination cannot be adequately assessed as the patient's currently sedated - Labs CBC & Chem 7: 08/13/21 04:10 08/13/21 04:10 Labs: Abnormal Lab Results - Last 24 Hours (Table) 08/12/21 08/12/21 08/12/21 Range/Units 00:47 08:08 12:00 WBC (3.8-10.6) k/uL Neutrophils # (1.3-7.7) k/uL Lymphocytes # (1.0-4.8) k/uL D-Dimer (<0.60) mg/L FEU ABG pH (7.35-7.45) ABG pCO2 (35-45) mmHg ABG pO2 (83-108) mmHg ABG HCO3 (21-25) mmol/L ABG Total CO2 (19-24) mmol/L ABG O2 Saturation (94-97) % Carbon Dioxide (22-30) mmol/L BUN (7-17) mg/dL Creatinine (0.52-1.04) mg/dL Glucose (74-99) mg/dL POC Glucose (mg/dL) 111 H 106 H (75-99) mg/dL AST (14-36) U/L ALT (4-34) U/L Alkaline Phosphatase (38-126) U/L C-Reactive Protein (<1.0) mg/dL Total Protein (6.3-8.2) g/dL Albumin (3.5-5.0) g/dL Procalcitonin 2.11 H (0.02-0.09) ng/mL 08/12/21 08/12/21 08/13/21 Range/Units 15:56 19:57 00:20 WBC (3.8-10.6) k/uL Neutrophils # (1.3-7.7) k/uL Lymphocytes # (1.0-4.8) k/uL D-Dimer (<0.60) mg/L FEU ABG pH (7.35-7.45) ABG pCO2 (35-45) mmHg ABG pO2 (83-108) mmHg ABG HCO3 (21-25) mmol/L ABG Total CO2 (19-24) mmol/L ABG O2 Saturation (94-97) % Carbon Dioxide (22-30) mmol/L BUN (7-17) mg/dL Creatinine (0.52-1.04) mg/dL Glucose (74-99) mg/dL POC Glucose (mg/dL) 129 H 134 H 104 H (75-99) mg/dL AST (14-36) U/L ALT (4-34) U/L Alkaline Phosphatase (38-126) U/L C-Reactive Protein (<1.0) mg/dL Total Protein (6.3-8.2) g/dL Albumin (3.5-5.0) g/dL Procalcitonin (0.02-0.09) ng/mL 08/13/21 08/13/21 08/13/21 Range/Units 04:10 04:10 04:10 WBC 13.3 H (3.8-10.6) k/uL Neutrophils # 12.1 H (1.3-7.7) k/uL Lymphocytes # 0.4 L (1.0-4.8) k/uL D-Dimer 1.00 H (<0.60) mg/L FEU ABG pH (7.35-7.45) ABG pCO2 (35-45) mmHg ABG pO2 (83-108) mmHg ABG HCO3 (21-25) mmol/L ABG Total CO2 (19-24) mmol/L ABG O2 Saturation (94-97) % Carbon Dioxide 36 H (22-30) mmol/L BUN 58 H (7-17) mg/dL Creatinine 1.05 H (0.52-1.04) mg/dL Glucose 117 H (74-99) mg/dL POC Glucose (mg/dL) (75-99) mg/dL AST 39 H (14-36) U/L ALT 56 H (4-34) U/L Alkaline Phosphatase 185 H (38-126) U/L C-Reactive Protein 39.6 H (<1.0) mg/dL Total Protein 5.6 L (6.3-8.2) g/dL Albumin 2.4 L (3.5-5.0) g/dL Procalcitonin (0.02-0.09) ng/mL 08/13/21 08/13/21 Range/Units 04:15 05:28 WBC (3.8-10.6) k/uL Neutrophils # (1.3-7.7) k/uL Lymphocytes # (1.0-4.8) k/uL D-Dimer (<0.60) mg/L FEU ABG pH 7.34 L (7.35-7.45) ABG pCO2 73 H* (35-45) mmHg ABG pO2 63 L (83-108) mmHg ABG HCO3 39 H (21-25) mmol/L ABG Total CO2 42 H (19-24) mmol/L ABG O2 Saturation 91.8 L (94-97) % Carbon Dioxide (22-30) mmol/L BUN (7-17) mg/dL Creatinine (0.52-1.04) mg/dL Glucose (74-99) mg/dL POC Glucose (mg/dL) 116 H (75-99) mg/dL AST (14-36) U/L ALT (4-34) U/L Alkaline Phosphatase (38-126) U/L C-Reactive Protein (<1.0) mg/dL Total Protein (6.3-8.2) g/dL Albumin (3.5-5.0) g/dL Procalcitonin (0.02-0.09) ng/mL Assessment and Plan Plan: 1 Acute hypoxemic respiratory failure secondary to coronavirus associated pneumonia, status post intubation and mechanical ventilation on 08/05/2021. The patient was initially treated with Decadron 6 mg IV every 24 hours and Baricitinib per protocol. Noted the patient is also on Lovenox for DVT prophylaxis. Doppler of the lower extremities been negative. Chest x-ray diffuse bilateral pulmonary infiltrates consistent with COVID-19 related pneumonia. A having a potentially superinfection. Moraxella catarrhalis was cultures and sputum. The chest x-ray findings are stable. Oxygenation is unchanged and stable. The patient is still allowing permissive hypercapnia. The patient is currently on IV cefepime. The patient is also on Decadron. She is off Baricitinib for now. Peak and static pressures are elevated and there is no room for any weaning at this point in time. 2 ARDS secondary to COVID 19 related pneumonia. The patient's lungs are extremely noncompliant with elevated peak and static pressure 3 Moraxella catarrhalis in the sputum, not clear of true infection. Procal level remains low range to 0.3 and 0.4 4 Elevated inflammatory marker secondary to coronavirus infection. Note that inflammatory markers of been improving 5 History of essential hypertension. 6 History of hyperlipidemia. 7 History of diabetes mellitus. The patient is currently on Levemir insulin with adequate blood sugar control in addition to a sliding scale coverage. 8 History of hypothyroidism Plan: Continue ventilator support and drop the PEEP down to 16 and keep the FiO2 at 90%. Keep the tidal volume of 325. Continue Decadron, the patient was taken off the Baricitinib due to concerns of an infection The patient remains off paralytics IV cefepime which gives her better gram-negative coverage. Meanwhile, the patient will be getting another sputum Gram stain and culture. Selby sedation with propofol, no paralytics for now DulcolX suppository The patient has been intubated on 08/05/2021 and the patient is doing minimal if any progress for now. Recheck inflammatory markers showed improvement in the markers in a.m. in addition to labs in a.m. and a blood gas in a.m. and the chest x-ray in a.m. Condition is critical. Family will be updated on her condition. I'll comes obviously poor because of severe pneumonia related to COVID 19 in addition to ARDS. We'll continue to follow. There is a critically care evaluation that was performed and more than 30 minutes Time with Patient: Greater than 30 Time with Patient: Greater than 30
[2021-08-13] MEDS: CEFEPIME 2 GM in SODIUM CHLORIDE 0.9% 100 ML IVPB SCH ×2 (09:16→19:54)
[2021-08-13] MEDS: PANTOPRAZOLE 40 MG/10 ML VIAL IVP SCH (09:18)
[2021-08-13] MEDS: DEXAMETHASONE SOD PHOSPHATE 10 MG/ML 1 ML VIAL IVP SCH (09:18)
[2021-08-13] MEDS: CHOLECALCIFEROL 125 MCG (5000 IU) TABLET PO SCH (09:18)
[2021-08-13] MEDS: CHLORHEXIDINE GLUCONATE 15 ML CUP MUCOUS MEM SCH ×2 (09:18→20:40)
[2021-08-13] MEDS: ASCORBIC ACID 500 MG TAB PO SCH (09:18)
[2021-08-13] MEDS: ZINC SULFATE 220 MG CAP PO SCH (09:18)
[2021-08-13] MEDS: ENOXAPARIN 40 MG/0.4 ML SYRINGE SQ SCH (09:19)
[2021-08-13 09:33] LABS: Glucose,Whole Blood 109 mg/dL (75-99)
[2021-08-13 12:34] LABS: Glucose,Whole Blood 143 mg/dL (75-99)
[2021-08-13] MEDS: CISATRACURIUM 200 MG in SODIUM CHLORIDE 0.9% 180 ML IV SCH (13:17)
--- NOTE | 2021-08-13 13:37 | P.PN ---
Subjective Progress Note Date: 08/13/21 Principal diagnosis: Covid 19 pneumonia, acute respiratory distress, mechanically ventilated Patient is a type II diabetic, intubated 17 of PEEP, inflammatory markers have improved or are stable, patient is hemodynamically stable, attempts at weaning vent unsuccessful, anticipate trach and PEG tube placement in the near future Objective - Vital Signs Vital signs: Vital Signs Temp 98.5 F 08/13/21 08:00 Pulse 86 08/13/21 13:00 Resp 29 H 08/13/21 13:00 BP 122/63 08/12/21 10:00 Pulse Ox 95 08/13/21 13:00 Intake & Output 08/12/21 08/13/21 08/13/21 18:59 06:59 18:59 Intake Total 642 787.837 553 Output Total 617 345 305 Balance 25 442.837 248 Weight 95.9 kg Intake: IV 250 253 138 Pressure bag 30 33 18 Sodium Chloride 0.9% 1, 220 220 120 000 ml @ 20 mls/hr IV . Q24H [facility] Rx#:[id number] Intake, IV Titration 300 179.837 100 Amount Cefepime 2 gm In Sodium 100 Chloride 0.9% 100 ml @ 25 mls/hr IVPB Q12H [facility] Rx# :[id number] propofoL 1,000 mg In 200 179.837 100 Empty Bag 1 bag @ Titrate IV .Q0M [facility] Rx#: [id number] Tube Feeding 92 265 155 Other 90 160 Output: Urine 617 345 305 Other: Voiding Method Indwelling Catheter Indwelling Catheter Indwelling Catheter ABP, PAP, CO, CI - Last Documented Arterial Blood Pressure 109/49 - Exam General: Patient is mechanically ventilated, sedated, no longer paralyzed HEENT: [PERRL. EOMI. intubated Neck: [No adenopathy.] Cardiac: [Heart regular in rate and rhythm. No S3. No S4. No clicks, rubs. No murmur.] Lungs: Rhonchorous breath sounds diminished bilaterally Abdomen: [No mass. No organomegaly. Bowel sounds presnt and normoactive in all 4 quadrants.] Extremes: [No edema no cyanosis no claudication normal pulses] : Normal female genitalia Musculoskeletal: [No joint erythema, edema or tenderness.] Skin: [No rash.] Neurologic: Patient is no longer paralyzed, intubated and mechanically ventilated, sedated Lymphatic: [No adenopathy.] - Labs CBC & Chem 7: 08/13/21 04:10 08/13/21 04:10 Labs: Abnormal Lab Results - Last 24 Hours (Table) 08/12/21 08/12/21 08/12/21 Range/Units 00:47 15:56 19:57 WBC (3.8-10.6) k/uL Neutrophils # (1.3-7.7) k/uL Lymphocytes # (1.0-4.8) k/uL D-Dimer (<0.60) mg/L FEU ABG pH (7.35-7.45) ABG pCO2 (35-45) mmHg ABG pO2 (83-108) mmHg ABG HCO3 (21-25) mmol/L ABG Total CO2 (19-24) mmol/L ABG O2 Saturation (94-97) % Carbon Dioxide (22-30) mmol/L BUN (7-17) mg/dL Creatinine (0.52-1.04) mg/dL Glucose (74-99) mg/dL POC Glucose (mg/dL) 129 H 134 H (75-99) mg/dL AST (14-36) U/L ALT (4-34) U/L Alkaline Phosphatase (38-126) U/L C-Reactive Protein (<1.0) mg/dL Total Protein (6.3-8.2) g/dL Albumin (3.5-5.0) g/dL Procalcitonin 2.11 H (0.02-0.09) ng/mL 08/13/21 08/13/21 08/13/21 Range/Units 00:20 04:10 04:10 WBC 13.3 H (3.8-10.6) k/uL Neutrophils # 12.1 H (1.3-7.7) k/uL Lymphocytes # 0.4 L (1.0-4.8) k/uL D-Dimer 1.00 H (<0.60) mg/L FEU ABG pH (7.35-7.45) ABG pCO2 (35-45) mmHg ABG pO2 (83-108) mmHg ABG HCO3 (21-25) mmol/L ABG Total CO2 (19-24) mmol/L ABG O2 Saturation (94-97) % Carbon Dioxide (22-30) mmol/L BUN (7-17) mg/dL Creatinine (0.52-1.04) mg/dL Glucose (74-99) mg/dL POC Glucose (mg/dL) 104 H (75-99) mg/dL AST (14-36) U/L ALT (4-34) U/L Alkaline Phosphatase (38-126) U/L C-Reactive Protein (<1.0) mg/dL Total Protein (6.3-8.2) g/dL Albumin (3.5-5.0) g/dL Procalcitonin (0.02-0.09) ng/mL 08/13/21 08/13/21 08/13/21 Range/Units 04:10 04:15 05:28 WBC (3.8-10.6) k/uL Neutrophils # (1.3-7.7) k/uL Lymphocytes # (1.0-4.8) k/uL D-Dimer (<0.60) mg/L FEU ABG pH 7.34 L (7.35-7.45) ABG pCO2 73 H* (35-45) mmHg ABG pO2 63 L (83-108) mmHg ABG HCO3 39 H (21-25) mmol/L ABG Total CO2 42 H (19-24) mmol/L ABG O2 Saturation 91.8 L (94-97) % Carbon Dioxide 36 H (22-30) mmol/L BUN 58 H (7-17) mg/dL Creatinine 1.05 H (0.52-1.04) mg/dL Glucose 117 H (74-99) mg/dL POC Glucose (mg/dL) 116 H (75-99) mg/dL AST 39 H (14-36) U/L ALT 56 H (4-34) U/L Alkaline Phosphatase 185 H (38-126) U/L C-Reactive Protein 39.6 H (<1.0) mg/dL Total Protein 5.6 L (6.3-8.2) g/dL Albumin 2.4 L (3.5-5.0) g/dL Procalcitonin (0.02-0.09) ng/mL 08/13/21 08/13/21 Range/Units 09:32 12:33 WBC (3.8-10.6) k/uL Neutrophils # (1.3-7.7) k/uL Lymphocytes # (1.0-4.8) k/uL D-Dimer (<0.60) mg/L FEU ABG pH (7.35-7.45) ABG pCO2 (35-45) mmHg ABG pO2 (83-108) mmHg ABG HCO3 (21-25) mmol/L ABG Total CO2 (19-24) mmol/L ABG O2 Saturation (94-97) % Carbon Dioxide (22-30) mmol/L BUN (7-17) mg/dL Creatinine (0.52-1.04) mg/dL Glucose (74-99) mg/dL POC Glucose (mg/dL) 109 H 143 H (75-99) mg/dL AST (14-36) U/L ALT (4-34) U/L Alkaline Phosphatase (38-126) U/L C-Reactive Protein (<1.0) mg/dL Total Protein (6.3-8.2) g/dL Albumin (3.5-5.0) g/dL Procalcitonin (0.02-0.09) ng/mL Microbiology - Last 24 Hours (Table) 08/13/21 00:11 Sputum Culture - Preliminary Sputum Assessment and Plan (1) Acute respiratory failure with hypoxia Current Visit: Yes Status: Acute Code(s): J96.01 - ACUTE RESPIRATORY FAILURE WITH HYPOXIA SNOMED Code(s): 82547565 (2) Hyperglycemia Current Visit: Yes Status: Acute Code(s): R73.9 - HYPERGLYCEMIA, UNSPECIFIED SNOMED Code(s): 41573632 (3) Hypothyroidism, unspecified Current Visit: Yes Status: Acute Code(s): E03.9 - HYPOTHYROIDISM, UNSPECIFIED SNOMED Code(s): 42444993 (4) Hypoxia Current Visit: Yes Status: Acute Code(s): R09.02 - HYPOXEMIA SNOMED Code(s): 591223654 (5) Mixed hyperlipidemia Current Visit: Yes Status: Acute Code(s): E78.2 - MIXED HYPERLIPIDEMIA SNOMED Code(s): 340741493 (6) Pneumonia due to COVID-19 virus Current Visit: Yes Status: Acute Code(s): U07.1 - COVID-19; J12.82 - PNEUMONIA DUE TO CORONAVIRUS DISEASE 2019 SNOMED Code(s): 064023029406340619 (7) Type 2 diabetes mellitus without complications Current Visit: Yes Status: Acute Code(s): E11.9 - TYPE 2 DIABETES MELLITUS WITHOUT COMPLICATIONS SNOMED Code(s): 560477999 Plan: This patient is mechanically ventilated and intubated Trach and PEG tube placement anticipated Long-term prognosis poor Time with Patient: Greater than 30
[2021-08-13 15:20] LABS: Glucose,Whole Blood 167 mg/dL (75-99)
[2021-08-13 19:51] LABS: Glucose,Whole Blood 153 mg/dL (75-99)
[2021-08-13] MEDS: SODIUM CHLORIDE 0.9% 1,000 ML IV SCH (19:57)
[2021-08-13 23:31] LABS: Glucose,Whole Blood 90 mg/dL (75-99)
[2021-08-14] MEDS: ARTIFICIAL TEARS-HYPROMELLOSE DROPS 15 ML BTL BOTH EYES SCH ×5 (04:40→21:02)
[2021-08-14] MEDS: ALBUTEROL HFA INHALER INHALATION SCH ×6 (04:55→23:22)
[2021-08-14 04:58] LABS: Basophils % (A) 0 %; Eosinophils # (A) 0.1 k/uL (0-0.7); Eosinophils % (A) 1 %; HCT 34.5 % (34.0-46.0); HGB 10.8 gm/dL (11.4-16.0); Lymphocytes # (A) 0.4 k/uL (1.0-4.8); Lymphocytes % (A) 4 %; MCH 30.4 pg (25.0-35.0); MCHC 31.3 g/dL (31.0-37.0); MCV 97.1 fL (80.0-100.0); Mean Platelet Volume 9.2; Monocytes # (A) 0.4 k/uL (0-1.0); Monocytes % (A) 3 %; Neutrophils # (A) 10.3 k/uL (1.3-7.7); Neutrophils % (A) 91 %; Platelet Count 281 k/uL (150-450); RBC 3.56 m/uL (3.80-5.40); WBC 11.4 k/uL (3.8-10.6)
[2021-08-14 05:15] LABS: Albumin 2.3 g/dL (3.5-5.0); Calcium 9.1 mg/dL (8.4-10.2); Potassium 4.6 mmol/L (3.5-5.1); Total Bilirubin 0.3 mg/dL (0.2-1.3); Total Protein 5.4 g/dL (6.3-8.2)
[2021-08-14 05:21] LABS: ABG Base Excess 13.9 mmol/L; ABG HCO3 39 mmol/L (21-25); ABG Oxygen Saturation 91.6 % (94-97); ABG PCO2 68 mmHg (35-45); ABG PH 7.37 (7.35-7.45); ABG PO2 60 mmHg (83-108); ABG TCO2 41 mmol/L (19-24); Allen Test Performed? Yes
[2021-08-14 05:35] LABS: C Reactive Protein 23.2 mg/dL (<1.0)
[2021-08-14] MEDS: INSULIN ASPART (NovoLOG) 100 UNIT/ML VIAL SQ SCH ×4 (05:46→18:09)
[2021-08-14] MEDS: LEVOTHYROXINE 100 MCG TAB OG-TUBE SCH (06:36)
[2021-08-14] MEDS: CISATRACURIUM 200 MG in SODIUM CHLORIDE 0.9% 180 ML IV SCH (07:09)
[2021-08-14] MEDS: INSULIN DETEMIR (LEVEMIR) 100 UNIT/ML SYR SQ SCH ×2 (07:15→21:02)
[2021-08-14 08:14] LABS: Glucose,Whole Blood 79 mg/dL (75-99)
--- NOTE | 2021-08-14 08:14 | P.PN ---
Subjective Progress Note Date: 08/14/21 This is a 76-year-old female patient who presented to us on 08/04/2021 for shortness of breath and hypoxemia. The patient tested positive COVID-19 on 07/30/2021. Noted the patient was feeling sick prior to that. She was initially on a BiPAP for support as the patient was quite hypoxic. Her comorbid conditions included diabetes mellitus, hypertension, hypothyroidism and hyperlipidemia. Chest x-ray also showed elevation of the right hemidiaphragm along with diffuse bilateral airspace disease consistent with COVID-19 related pneumonia. Within a few days of admission, the patient decompensated and the patient to be intubated and placed on mechanical ventilator. The patient was intubated on 08/05/2021 and the patient remains intubated, sedated, paralyzed this point in time. Note that the patient is an assist-control mode of mechanical ventilation at the rate of 26 with a tidal volume of 400 and FiO2 of 80% with a PEEP of 20. Chest x-ray was noted. Blood gases was noted. The patient remains on propofol running at 40 mcg/kg per minute and the patient is also Nimbex at 1.5 mcg/kg per minute. Normal saline is running at the rate of 80 mL an hour and the patient is also on enteral feeding for nutritional support with vitamin AF at the rate of 29 mL an hour, goal. Inflammatory markers were modestly elevated with an LDH of 847, CRP of 18.7 from yesterday. Chest x-ray was consistent with diffuse bilateral pulmonary infiltrates. Sputum head turning machine operator to be positive for Moraxella catarrhalis and the patient's pro calcitonin level was at 0.34. At this point in time, the patient is on Baricitinib was started on 08/05/2021 in addition to Decadron 6 mg IV every 24 hours. The patient is also on Lovenox 40 mg subcu for DVT prophylaxis. No antibiotic coverage is offered to this patient this point in time. The white cell count from yesterday was elevated at 15. The patient also had a consent form and of mild transaminitis. Inflammatory markers have been gradually improving. Note that the patient from yesterday was down to 847, troponins are negative, TSH wasn't 8.3 with a free T4 of 0.51. The pro calcitonin on several occasions was checked and it remained at 0.3 and 0.4 range. On today's evaluation of 08/08/2021, the patient remains essentially on the same ventilator setting. The patient is on a assist-control mode at the rate of 26 with a tidal volume 400 and FiO2 of 65% with a PEEP of 20. Peak airway pressure is 46, static airway pressures around 45. The blood gases from today shows a pH of 7.39 with a pCO2 of 42 and pO2 of 16 1. Chest x- ray showed diffuse bilateral pulmonary infiltrates. ET tube is in a good location. Orogastric tube is in a good location. The patient also has a triple-lumen catheter in the subclavian vein on the left. In comparison to yesterday's chest x-ray, there is no major interval change. In terms of his blood work, no significant abnormalities noted, inflammatory markers were not checked today, the white cell count is at 15.3 and the patient is afebrile. 08/09/2021, I am seeing the patient for a follow-up. As mentioned earlier, the patient is a simple COVID 19 related pneumonia with secondary respiratory failure and ARDS and the patient is currently intubated, on a mechanical ventilator. On today's evaluation, the patient remains sedated and the patient is currently on propofol running at 45 mcg/kg per minute. The patient is also on Nimbex at 1.5 respiratory per minute pH is adequately sedated and paralyzed. The patient is an assist-control mode of mechanical ventilation. Her current respiratory rate is at 26 with a tidal volume of 350 and the patient's FiO2 is currently at 65% with a PEEP of 20. The chest x-ray still showing pulmonary infiltrates most on the lower lobes. No evidence of any pneumothorax. ET tube is in a good location. The patient has a left subclavian triple-lumen catheter in place. On yesterday's evaluation, I eliminated the Baricitinib as the patient had Moraxella catarrhalis in the sputum. I added IV Rocephin. I kept the patient on Decadron. No new cultures are available for now. The white cell count is at 14. D-dimer is low at 0.7. The LDH level is o n the decline and is currently down to 606 and a CRP level is at 21. Rest of the blood work and electrolytes are all within normal limits. The patient is afebrile. The patient is receiving enteral feeding for nutritional support. Currently the patient is on vitamin AF at the rate of 29 mL an hour and the patient shows no abdominal distention. She is stooling. The peak airway pressure today was 39 and the static airway pressure was 37 and this is improved as the patient was given a lower tidal volume yesterday and the ventilator changes were done accordingly. She was given a dose of Lasix yesterday and following that the patient had adequate diuresis and the patient despite that is still in a positive fluid balance. I'm going to give her another dose of Lasix 40 mg IV push every 122 doses. 08/10/2021, the patient is being seen for a follow-up. On today's evaluation, the patient remains sedated with propofol running at 50 mcg/kg per minute and the patient is also Nimbex at 1.5 mcg/kg/m. She remains on a mechanical ventilator. Some ventilator changes were done yesterday. The current tidal volume is down to 325 with a rate of 26 and a PEEP of 18 with an FiO2 of 60%. The peak airway pressures 35. The static pressures 30. Her chest x-ray remains unchanged. The blood gases showed a pH of 7.34 with a pCO2 of 69 and pO2 of 68. The patient is diuresis with IV Lasix yesterday and the neck fluid balance is - 710 mL over the past 24 hours. She is receiving enteral feeding for nutritional support. She hasn't had a bowel movement yet. The rest of the blood work from today is essentially benign. White cell count is at 3.9 with a hemoglobin of 12 and BUN is a 24 with a creatinine of 0.7 and the sodium level of 142. The patient remains on Decadron. The inflammatory markers were essentially on the decline. D-dimer, LDH and CRP were all at the lower level. No other significant events overnight. The patient is still vent dependent due to COVID 19 related pneumonia/ARDS. She is afebrile. She is hemodynamically stable. No other issues otherwise. 08/11/2021, I'm seeing the patient for a follow-up. He remains sedated and paralyzed. Noted the patient was taken off paralytics throughout the day yesterday. At around midnight the patient desaturated and she was getting asynchronous a mechanical ventilator and as such the Nimbex was restarted. Currently Nimbex is running at the rate of 2 mcg/kg per minute. The patient is also on propofol at 45 mcg/kg per minute. The patient remains on a mechanical ventilator. On today's evaluation, she is an assist-control mode at the rate of 26, PEEP is currently at 17 which is slightly lower compared to yesterday and FiO2 is currently at 65% and her tidal volume is currently at 325. There peak air pressure is 35 which is essentially the same as yesterday. Static airway pressure continues to be quite elevated. On today's evaluation, the chest x-ray shows some limited improvement in her infiltration in the lung bases bilaterally. Blood gases from today shows a pH of 7.31 with a pCO2 of 77 and pO2 of 65 and this was essentially done on the above-mentioned ventilator setting. D-dimer is down to 0.9. Inflammatory markers including LDH is down to 619 and the CRP is at 42. Renal function is stable. Electrolytes are stable. LFTs show some mild elevation of the alkaline phosphatase although this has been stable. The patient continues to receive enteral feeding for nutritional support. The patient is tolerating her enteral feeding. She is not stooling. She is not having a lot of residual. Abdomen is nondistended. She was given Lasix yesterday and the fluid balance as noted today has been -83 mL over the past 24 hours. Note that her urine output was in the order of 2.2 L over the p ast 24 hours. She is receiving Lasix daily basis based on her overall fluid status and fluid balance. She is afebrile. No other significant events otherwise for now. Blood sugar control is with Levemir insulin 30 units and the patient is receiving 10 units of Levemir at bedtime. She is also receiving a sliding scale coverage. The sputum culture was positive for Moraxella catarrhalis and the patient is currently on IV Rocephin. The patient remains on Decadron at a dose of 6 mg IV on a daily basis. 08/12/2021 the patient remains sedated and she's been off paralytics for the past 24 hours. I took her off paralytics as yesterday. She remains however on propofol which is currently running at 40 mL for. 45 mcg/kg per minute. She remains on a mechanical ventilator. Overnight, she had a cuff leak which caused significant oxygen desaturation. Based on that, the patient was placed on 100% FiO2. This morning, her efforts is currently down to 90% and his tidal volumes at 325 with a rate of 26 and a PEEP of 16. Blood gases done earlier this morning showed a pH of 7.4 with a pCO2 of 65 and pO2 of 63. Chest x-ray showing diffuse bilateral pulmonary infiltrates and there is some interval worsening in the right upper lobe pulmonary infiltration. Note that the earlier sputum that she'll Moraxella catarrhalis and the patient is currently on IV Rocephin. Meanwhile, the pro-calcitonin level was mildly elevated at 0.31 and a repeat level will be obtained to yesterday. In terms of her COVID 19 infection, the patient is still on Decadron. The patient was on Baricitinib and this was discontinued due to ongoing lung infection and presence of axillae in the sputum. She is currently afebrile. She is hemodynamically stable on no pressors. Her overall fluid balance over the past 24 hours has been in the order of 399 mL positive. The patient is producing adequate urine output. The patient is also stooling and she was given laxatives yesterday. She remains on enteral feeding for nutritional support. She is receiving iron and vitamin AF at the rate of 22 mL an hour. On today's blood work, white cell count is 16 with slightly improved compared to yesterday with a hemoglobin of 11.4. Her d- dimer from yesterday was 0.9. Coagulation profile was essentially within normal limits. BUN is a 49 with a creatinine of 0.8. Serum bicarbonate was 38 with a sodium level of 141. She remains on Levemir insulin 30 units daily in the morning and 10 units at nighttime. She is also on a scale. She is on Lovenox for DVT prophylaxis. IV fluids are currently at KVO at 20 mL an hour. 08/13/2021 patient is essentially clinically stable and there is no significant change in her condition since yesterday. She remains on the same mechanical ventilator setting. She is still allowed permissive hypercapnia. The tidal volumes of 325 with a rate of 26 and a PEEP of 16 with an FiO2 of 90%. PH is at 7.34 with a pCO2 of 73 and pO2 of 63. Peak airway pressures 36, static pr essures 33. Chest x-ray showing diffuse bilateral pulmonary infiltrates. She remains on antibiotics regarding Moraxella catarrhalis in his sputum and currently she is on IV cefepime. She remains sedated with propofol running at 45 mcg/kg per minute and the patient off Nimbex. The patient remains on Decadron. She was taken off Baricitinib due to concerns of an underlying infection. The patient had follow-up inflammatory markers today. The LDH level today is at 563 and the CRP 39.6. Renal function stable. She is tolerating enteral feeding for nutritional support. She is on vitamin AF. She was given a laxative yesterday to assist her with bowel movement activity. IV fluids remain at KVO. The patient is afebrile. Rest of the blood work essentially stable. I will say the patient has not shown any significant progress since she was intubated on 08/05/2021. Her d-dimer today is at 1.0. Her white cell count today is at 13.3 with a hemoglobin of 11.6 which is essentially stable. 08/14/2021, the patient's condition remains essentially unchanged. She has post COVID 19 related pneumonia with secondary ARDS and her oxygenation has remained unchanged and her ventilator settings have been essentially remained stable over the past several days. This morning, the patient remains sedated and she is currently on propofol running at a rate of 45 mcg/kg per minute. The patient is not paralyzed at this point in time. We should be able to cut down her sedation to a lower level at this point. Meanwhile, we are still allowed permissive hypercapnia. She is on low tidal volume mechanical ventilation with a tidal volume of 325, rate of 26, PEEP is at 60 with an FiO2 of 90%. Peak airway pressures 33. Static pressures 31 and all of these numbers are comparable to yesterday. The blood gas showed a pH of 7.37 with a pCO2 of 60 and pO2 of 60. She remains on IV cefepime as the cultures Moraxella in her sputum. Her respiratory secretions are scant at this point in time. She is afebrile. She is hemodynamic is stable. She remains on Decadron. Her mother markers have improved specially the LDH. Her CRP was still elevated at 23 however this was also downtrending. She remains on enteral feeding for nutritional support. She is receiving vital AF and she is currently ongoing. Urine output is adequate. Overall fluid balance over the past 24 hours has been +457 mL. No signs of any significant: Overload. Noted the patient has been intubated on 08/05/2021 and her progress has been essentially minimal at this point in time. Unable to do any further weaning from mechanical ventilator due to her poor oxygenation status. Chest x-ray from yesterday was noted. A repeat chest x-ray will be done today. Rest of the blood work essentially stable. She remains on Levemir insulin 30 units in the morning and 10 units in the evening and she is also on a sliding scale insulin coverage. She is also on Lovenox 40 mg subcu for DVT prophylaxis. IV fluids are currently at KVO. Objective - Vital Signs Vital signs: Vital Signs Temp 98.5 F 08/13/21 16:00 Pulse 76 08/14/21 07:00 Resp 30 H 08/14/21 07:00 BP 122/63 08/12/21 10:00 Pulse Ox 90 L 08/14/21 07:00 Intake & Output 08/13/21 08/14/21 08/14/21 18:59 06:59 18:59 Intake Total 976 846 133.468 Output Total 560 540 50 Balance 416 306 83.468 Intake: IV 276 276 23 Pressure bag 36 36 3 Sodium Chloride 0.9% 1, 240 240 20 000 ml @ 20 mls/hr IV . Q24H [facility] Rx#:[id number] Intake, IV Titration 200 200 88.468 Amount propofoL 1,000 mg In 200 200 88.468 Empty Bag 1 bag @ Titrate IV .Q0M [facility] Rx#: [id number] Tube Feeding 310 310 22 Other 190 60 Output: Urine 560 540 50 Other: Voiding Method Indwelling Catheter Indwelling Catheter ABP, PAP, CO, CI - Last Documented Arterial Blood Pressure 146/56 - Exam Gen. appearance, No acute distress, sedated and paralyzed, with an orally placed endotracheal tube and NG tube. HEENT examination is grossly unremarkable. Neck supple. Full range of motion. No adenopathy thyromegaly or neck vein distention. Cardiac exam revealed the PMI to be normally situated and sized. The rhythm was regular and no extrasystoles were noted during several minutes of auscultation. The first and second heart sounds were normal and physiologic splitting of the second heart sound was noted. There were no murmurs, rubs, clicks, or gallops. Lungs reveal use bilateral rhonchi. No wheezes or crackles. Breath sounds equal. Saturations 93%. Abdominal exam revealed normal bowel sounds. The abdomen was soft, non-tender, and without masses, organomegaly, or appreciable enlargement of the abdominal aorta. Extremities are intact. No cyanosis clubbing or edema. Skin is without rash or lesion. Neurologic examination cannot be adequately assessed as the patient's currently sedated - Labs CBC & Chem 7: 08/14/21 04:15 08/14/21 04:15 Labs: Abnormal Lab Results - Last 24 Hours (Table) 08/13/21 08/13/21 08/13/21 Range/Units 09:32 12:33 15:19 WBC (3.8-10.6) k/uL RBC (3.80-5.40) m/uL Hgb (11.4-16.0) gm/dL Neutrophils # (1.3-7.7) k/uL Lymphocytes # (1.0-4.8) k/uL D-Dimer (<0.60) mg/L FEU ABG pCO2 (35-45) mmHg ABG pO2 (83-108) mmHg ABG HCO3 (21-25) mmol/L ABG Total CO2 (19-24) mmol/L ABG O2 Saturation (94-97) % Carbon Dioxide (22-30) mmol/L BUN (7-17) mg/dL POC Glucose (mg/dL) 109 H 143 H 167 H (75-99) mg/dL ALT (4-34) U/L Alkaline Phosphatase (38-126) U/L C-Reactive Protein (<1.0) mg/dL Total Protein (6.3-8.2) g/dL Albumin (3.5-5.0) g/dL 08/13/21 08/14/21 08/14/21 Range/Units 19:49 04:15 04:15 WBC 11.4 H (3.8-10.6) k/uL RBC 3.56 L (3.80-5.40) m/uL Hgb 10.8 L (11.4-16.0) gm/dL Neutrophils # 10.3 H (1.3-7.7) k/uL Lymphocytes # 0.4 L (1.0-4.8) k/uL D-Dimer 1.12 H (<0.60) mg/L FEU ABG pCO2 (35-45) mmHg ABG pO2 (83-108) mmHg ABG HCO3 (21-25) mmol/L ABG Total CO2 (19-24) mmol/L ABG O2 Saturation (94-97) % Carbon Dioxide (22-30) mmol/L BUN (7-17) mg/dL POC Glucose (mg/dL) 153 H (75-99) mg/dL ALT (4-34) U/L Alkaline Phosphatase (38-126) U/L C-Reactive Protein (<1.0) mg/dL Total Protein (6.3-8.2) g/dL Albumin (3.5-5.0) g/dL 08/14/21 08/14/21 Range/Units 04:15 05:15 WBC (3.8-10.6) k/uL RBC (3.80-5.40) m/uL Hgb (11.4-16.0) gm/dL Neutrophils # (1.3-7.7) k/uL Lymphocytes # (1.0-4.8) k/uL D-Dimer (<0.60) mg/L FEU ABG pCO2 68 H (35-45) mmHg ABG pO2 60 L (83-108) mmHg ABG HCO3 39 H (21-25) mmol/L ABG Total CO2 41 H (19-24) mmol/L ABG O2 Saturation 91.6 L (94-97) % Carbon Dioxide 38 H (22-30) mmol/L BUN 64 H (7-17) mg/dL POC Glucose (mg/dL) (75-99) mg/dL ALT 40 H (4-34) U/L Alkaline Phosphatase 139 H (38-126) U/L C-Reactive Protein 23.2 H (<1.0) mg/dL Total Protein 5.4 L (6.3-8.2) g/dL Albumin 2.3 L (3.5-5.0) g/dL Microbiology - Last 24 Hours (Table) 08/13/21 00:11 Sputum Culture - Preliminary Sputum Assessment and Plan Plan: 1 Acute hypoxemic respiratory failure secondary to coronavirus associated pneumonia, status post intubation and mechanical ventilation on 08/05/2021. The patient was initially treated with Decadron 6 mg IV every 24 hours and Baricitinib per protocol. Noted the patient is also on Lovenox for DVT prophylaxis. Doppler of the lower extremities been negative. Chest x-ray diffuse bilateral pulmonary infiltrates consistent with COVID-19 related pneumonia. A having a potentially superinfection. Moraxella catarrhalis was cultures and sputum. The chest x-ray findings are stable. Oxygenation is unchanged and stable. The patient is still allowing permissive hypercapnia. The patient is currently on IV cefepime. The patient is also on Decadron. She is off Baricitinib for now. Peak and static pressures are elevated and there is no room for any weaning at this point in time. Limited improvement on today's evaluation. Repeat chest that would be ordered. Blood gases was noted. No room for any further weaning. Remains on Decadron. 2 ARDS secondary to COVID 19 related pneumonia. The patient's lungs are extremely noncompliant with elevated peak and static pressure 3 Moraxella catarrhalis in the sputum, not clear of true infection. Procal level remains low range to 0.3 and 0.4 4 Elevated inflammatory marker secondary to coronavirus infection. Note that inflammatory markers of been improving 5 History of essential hypertension. 6 History of hyperlipidemia. 7 History of diabetes mellitus. The patient is currently on Levemir insulin with adequate blood sugar control in addition to a sliding scale coverage. 8 History of hypothyroidism Plan: Continue ventilator support Keep PEEP @ 16 and keep the FiO2 at 90%. Keep the tidal volume of 325. Continue Decadron, the patient was taken off the Baricitinib due to concerns of an infection The patient remains off paralytics IV cefepime which gives her better gram-negative coverage. Meanwhile, the patient will be getting another sputum Gram stain and culture. sedation with propofol, no paralytics for now DulcolX suppository The patient has been intubated on 08/05/2021 and the patient is doing minimal if any progress for now. Recheck inflammatory markers showed improvement in the markers in a.m. in addition to labs in a.m. and a blood gas in a.m. and the chest x-ray in a.m. Condition is critical. Family will be updated on her condition. Outcome obviously poor because of severe pneumonia related to COVID 19 in addition to ARDS. Consider tracheostomy tube insertion with the next 24-48 hours if the kelvin sheila's family is willing to continue ongoing treatment. We'll continue to follow. There is a critically care evaluation that was performed and more than 30 minutes Time with Patient: Greater than 30 Time with Patient: Greater than 30
--- NOTE | 2021-08-14 08:49 | XR ---
EXAMINATION TYPE: XR chest 1V portable DATE OF EXAM: 08/14/2021 COMPARISON: 08/13/2021 HISTORY: Covid pneumonia TECHNIQUE: Single frontal view of the chest is obtained. FINDINGS: There is no change. No change intensity scattered throughout both lungs There is no pneumothorax are intact. IMPRESSION: No change in the diffuse scattered lung infiltrates.
[2021-08-14] MEDS: CEFEPIME 2 GM in SODIUM CHLORIDE 0.9% 100 ML IVPB SCH ×2 (09:34→21:02)
[2021-08-14] MEDS: ZINC SULFATE 220 MG CAP PO SCH (09:35)
[2021-08-14] MEDS: PANTOPRAZOLE 40 MG/10 ML VIAL IVP SCH (09:36)
[2021-08-14] MEDS: CHOLECALCIFEROL 125 MCG (5000 IU) TABLET PO SCH (09:36)
[2021-08-14] MEDS: ENOXAPARIN 40 MG/0.4 ML SYRINGE SQ SCH (09:36)
[2021-08-14] MEDS: DEXAMETHASONE SOD PHOSPHATE 10 MG/ML 1 ML VIAL IVP SCH (09:36)
[2021-08-14] MEDS: ASCORBIC ACID 500 MG TAB PO SCH (09:37)
[2021-08-14] MEDS: CHLORHEXIDINE GLUCONATE 15 ML CUP MUCOUS MEM SCH ×2 (09:43→21:02)
[2021-08-14 12:18] LABS: Glucose,Whole Blood 98 mg/dL (75-99)
[2021-08-14] MEDS: SODIUM CHLORIDE 0.9% 1,000 ML IV SCH (15:39)
--- NOTE | 2021-08-14 16:26 | P.PN ---
Subjective Progress Note Date: 08/14/21 Principal diagnosis: Covid 19 pneumonia, acute respiratory distress, mechanically ventilated Patient is a type II diabetic, intubated 17 of PEEP, inflammatory markers have improved or are stable, patient is hemodynamically stable, attempts at weaning vent unsuccessful, anticipate trach and PEG tube placement in the near future Objective - Vital Signs Vital signs: Vital Signs Temp 98.6 F 08/14/21 12:00 Pulse 80 08/14/21 15:00 Resp 30 H 08/14/21 15:00 BP 122/63 08/12/21 10:00 Pulse Ox 91 L 08/14/21 15:00 Intake & Output 08/13/21 08/14/21 08/14/21 18:59 06:59 18:59 Intake Total 976 846 799.468 Output Total 560 540 515 Balance 416 306 284.468 Intake: IV 276 276 207 Pressure bag 36 36 27 Sodium Chloride 0.9% 1, 240 240 180 000 ml @ 20 mls/hr IV . Q24H [facility] Rx#:[id number] Intake, IV Titration 200 200 188.468 Amount Cefepime 2 gm In Sodium 100 Chloride 0.9% 100 ml @ 25 mls/hr IVPB Q12H [facility] Rx# :[id number] propofoL 1,000 mg In 200 200 88.468 Empty Bag 1 bag @ Titrate IV .Q0M [facility] Rx#: [id number] Tube Feeding 310 310 244 Other 190 60 160 Output: Urine 560 540 515 Other: Voiding Method Indwelling Catheter Indwelling Catheter Indwelling Catheter ABP, PAP, CO, CI - Last Documented Arterial Blood Pressure 144/57 - Exam General: Patient is mechanically ventilated, sedated, no longer paralyzed HEENT: [PERRL. EOMI. intubated Neck: [No adenopathy.] Cardiac: [Heart regular in rate and rhythm. No S3. No S4. No clicks, rubs. No murmur.] Lungs: Rhonchorous breath sounds diminished bilaterally Abdomen: [No mass. No organomegaly. Bowel sounds presnt and normoactive in all 4 quadrants.] Extremes: [No edema no cyanosis no claudication normal pulses] : Normal female genitalia Musculoskeletal: [No joint erythema, edema or tenderness.] Skin: [No rash.] Neurologic: Patient is no longer paralyzed, intubated and mechanically ventilated, sedated Lymphatic: [No adenopathy.] - Labs CBC & Chem 7: 08/14/21 04:15 08/14/21 04:15 Labs: Abnormal Lab Results - Last 24 Hours (Table) 08/13/21 08/14/21 08/14/21 Range/Units 19:49 04:15 04:15 WBC 11.4 H (3.8-10.6) k/uL RBC 3.56 L (3.80-5.40) m/uL Hgb 10.8 L (11.4-16.0) gm/dL Neutrophils # 10.3 H (1.3-7.7) k/uL Lymphocytes # 0.4 L (1.0-4.8) k/uL D-Dimer 1.12 H (<0.60) mg/L FEU ABG pCO2 (35-45) mmHg ABG pO2 (83-108) mmHg ABG HCO3 (21-25) mmol/L ABG Total CO2 (19-24) mmol/L ABG O2 Saturation (94-97) % Carbon Dioxide (22-30) mmol/L BUN (7-17) mg/dL POC Glucose (mg/dL) 153 H (75-99) mg/dL ALT (4-34) U/L Alkaline Phosphatase (38-126) U/L C-Reactive Protein (<1.0) mg/dL Total Protein (6.3-8.2) g/dL Albumin (3.5-5.0) g/dL 08/14/21 08/14/21 Range/Units 04:15 05:15 WBC (3.8-10.6) k/uL RBC (3.80-5.40) m/uL Hgb (11.4-16.0) gm/dL Neutrophils # (1.3-7.7) k/uL Lymphocytes # (1.0-4.8) k/uL D-Dimer (<0.60) mg/L FEU ABG pCO2 68 H (35-45) mmHg ABG pO2 60 L (83-108) mmHg ABG HCO3 39 H (21-25) mmol/L ABG Total CO2 41 H (19-24) mmol/L ABG O2 Saturation 91.6 L (94-97) % Carbon Dioxide 38 H (22-30) mmol/L BUN 64 H (7-17) mg/dL POC Glucose (mg/dL) (75-99) mg/dL ALT 40 H (4-34) U/L Alkaline Phosphatase 139 H (38-126) U/L C-Reactive Protein 23.2 H (<1.0) mg/dL Total Protein 5.4 L (6.3-8.2) g/dL Albumin 2.3 L (3.5-5.0) g/dL Microbiology - Last 24 Hours (Table) 08/13/21 00:11 Gram Stain - Preliminary Sputum Sputum Culture - Preliminary Assessment and Plan (1) Acute respiratory failure with hypoxia Current Visit: Yes Status: Acute Code(s): J96.01 - ACUTE RESPIRATORY FAILURE WITH HYPOXIA SNOMED Code(s): 65490258 (2) Hyperglycemia Current Visit: Yes Status: Acute Code(s): R73.9 - HYPERGLYCEMIA, UNSPECIFIED SNOMED Code(s): 41152710 (3) Hypothyroidism, unspecified Current Visit: Yes Status: Acute Code(s): E03.9 - HYPOTHYROIDISM, UNSPECIFIED SNOMED Code(s): 37204391 (4) Hypoxia Current Visit: Yes Status: Acute Code(s): R09.02 - HYPOXEMIA SNOMED Code(s): 574670817 (5) Mixed hyperlipidemia Current Visit: Yes Status: Acute Code(s): E78.2 - MIXED HYPERLIPIDEMIA SNOMED Code(s): 144349129 (6) Pneumonia due to COVID-19 virus Current Visit: Yes Status: Acute Code(s): U07.1 - COVID-19; J12.82 - PNEUMONIA DUE TO CORONAVIRUS DISEASE 2019 SNOMED Code(s): 875581157429456271 (7) Type 2 diabetes mellitus without complications Current Visit: Yes Status: Acute Code(s): E11.9 - TYPE 2 DIABETES MELLITUS WITHOUT COMPLICATIONS SNOMED Code(s): 857736351 Plan: This patient is mechanically ventilated and intubated Trach and PEG tube placement anticipated Long-term prognosis poor Time with Patient: Greater than 30
[2021-08-14 18:04] LABS: Glucose,Whole Blood 112 mg/dL (75-99)
[2021-08-14] MEDS: CLEVIDIPINE BUTYRATE 25 MG in EMPTY BAG 1 BAG IV SCH ×4 (18:09→22:35)
[2021-08-14 20:10] LABS: Glucose,Whole Blood 123 mg/dL (75-99)
[2021-08-14 23:35] LABS: Glucose,Whole Blood 178 mg/dL (75-99)
[2021-08-15] MEDS: ARTIFICIAL TEARS-HYPROMELLOSE DROPS 15 ML BTL BOTH EYES SCH ×6 (01:11→20:59)
[2021-08-15] MEDS: INSULIN ASPART (NovoLOG) 100 UNIT/ML VIAL SQ SCH ×4 (01:11→18:18)
[2021-08-15] MEDS: ALBUTEROL HFA INHALER INHALATION SCH ×5 (03:25→18:52)
[2021-08-15] MEDS: CISATRACURIUM 200 MG in SODIUM CHLORIDE 0.9% 180 ML IV SCH (03:45)
[2021-08-15 05:17] LABS: Basophils # (A) 0.1 k/uL (0-0.2); Basophils % (A) 1 %; Eosinophils # (A) 0.2 k/uL (0-0.7); Eosinophils % (A) 1 %; HCT 35.7 % (34.0-46.0); HGB 11.2 gm/dL (11.4-16.0); Hypochromasia Slight; Lymphocytes # (A) 0.5 k/uL (1.0-4.8); Lymphocytes % (A) 3 %; MCH 30.2 pg (25.0-35.0); MCHC 31.5 g/dL (31.0-37.0); MCV 95.9 fL (80.0-100.0); Mean Platelet Volume 8.5; Monocytes # (A) 0.5 k/uL (0-1.0); Monocytes % (A) 3 %; Neutrophils # (A) 14.4 k/uL (1.3-7.7); Neutrophils % (A) 92 %; Platelet Count 265 k/uL (150-450); RBC 3.72 m/uL (3.80-5.40); RDW 13.7 % (11.5-15.5); WBC 15.7 k/uL (3.8-10.6)
[2021-08-15 05:53] LABS: Albumin 2.5 g/dL (3.5-5.0); Calcium 9.6 mg/dL (8.4-10.2); Potassium 4.9 mmol/L (3.5-5.1); Total Bilirubin 0.3 mg/dL (0.2-1.3); Total Protein 5.8 g/dL (6.3-8.2)
[2021-08-15 06:04] LABS: C Reactive Protein 26.6 mg/dL (<1.0)
[2021-08-15 06:05] LABS: ABG Base Excess 11.2 mmol/L; ABG HCO3 38 mmol/L (21-25); ABG Oxygen Saturation 96.4 % (94-97); ABG PH 7.28 (7.35-7.45); ABG PO2 85 mmHg (83-108); ABG TCO2 40 mmol/L (19-24)
[2021-08-15 06:22] LABS: ABG PCO2 80 mmHg (35-45); Allen Test Performed? No
[2021-08-15] MEDS: LEVOTHYROXINE 100 MCG TAB OG-TUBE SCH (06:54)
[2021-08-15] MEDS: INSULIN DETEMIR (LEVEMIR) 100 UNIT/ML SYR SQ SCH ×2 (06:54→20:59)
--- NOTE | 2021-08-15 08:14 | XR ---
EXAMINATION TYPE: XR chest 1V portable DATE OF EXAM: 08/15/2021 COMPARISON: Chest x-ray 08/14/2021 HISTORY: Covid, intubated TECHNIQUE: Single frontal view of the chest is obtained. FINDINGS: Endotracheal tube, NG tube, left subclavian central venous catheter are overlying appropri ate positions, bilateral airspace disease persists. Patient is rotated. There are overlying artifacts . No evident pneumothorax or pleural effusion. Cardiac mediastinal silhouette is stable accounting fo r differences in technique. Bones are unchanged. IMPRESSION: Correlate for pneumonia, ARDS, edema
[2021-08-15] MEDS: ASCORBIC ACID 500 MG TAB PO SCH ×2 (09:42→09:43)
[2021-08-15] MEDS: CHLORHEXIDINE GLUCONATE 15 ML CUP MUCOUS MEM SCH ×2 (09:42→21:01)
[2021-08-15] MEDS: CEFEPIME 2 GM in SODIUM CHLORIDE 0.9% 100 ML IVPB SCH ×2 (09:42→21:01)
[2021-08-15] MEDS: CHOLECALCIFEROL 125 MCG (5000 IU) TABLET PO SCH (09:43)
[2021-08-15] MEDS: DEXAMETHASONE SOD PHOSPHATE 10 MG/ML 1 ML VIAL IVP SCH (09:43)
[2021-08-15] MEDS: ENOXAPARIN 40 MG/0.4 ML SYRINGE SQ SCH (09:43)
[2021-08-15] MEDS: PANTOPRAZOLE 40 MG/10 ML VIAL IVP SCH (09:44)
[2021-08-15] MEDS: ZINC SULFATE 220 MG CAP PO SCH (09:44)
--- NOTE | 2021-08-15 11:37 | P.PN ---
Subjective Progress Note Date: 08/15/21 Principal diagnosis: Acute hypoxic arthrodesis failure second to COVID-19 pneumonia 08/14/2021, the patient's condition remains essentially unchanged. She has post COVID 19 related pneumonia with secondary ARDS and her oxygenation has remained unchanged and her ventilator settings have been essentially remained stable over the past several days. This morning, the patient remains sedated and she is currently on propofol running at a rate of 45 mcg/kg per minute. The patient is not paralyzed at this point in time. We should be able to cut down her sedation to a lower level at this point. Meanwhile, we are still allowed permissive hypercapnia. She is on low tidal volume mechanical ventilation with a tidal volume of 325, rate of 26, PEEP is at 60 with an FiO2 of 90%. Peak airway pressures 33. Static pressures 31 and all of these numbers are comparable to yesterday. The blood gas showed a pH of 7.37 with a pCO2 of 60 and pO2 of 60. She remains on IV cefepime as the cultures Moraxella in her sputum. Her respiratory secretions are scant at this point in time. She is afebrile. She is hemodynamic is stable. She remains on Decadron. Her mother markers have improved specially the LDH. Her CRP was still elevated at 23 however this was also downtrending. She remains on enteral feeding for nutritional support. She is receiving vital AF and she is currently ongoing. Urine output is adequate. Overall fluid balance over the past 24 hours has been +457 mL. No signs of any significant: Overload. Noted the patient has been intubated on 08/05/2021 and h er progress has been essentially minimal at this point in time. Unable to do any further weaning from mechanical ventilator due to her poor oxygenation status. Chest x-ray from yesterday was noted. A repeat chest x-ray will be done today. Rest of the blood work essentially stable. She remains on Levemir insulin 30 units in the morning and 10 units in the evening and she is also on a sliding scale insulin coverage. She is also on Lovenox 40 mg subcu for DVT prophylaxis. IV fluids are currently at KVO. Reevaluated today on 08/15/2021, patient remains in the ICU, intubated and mechanically ventilated. She is presently on assist control rate of 26, tidal volume of 325 FiO2 75% PEEP 16. ABG earlier on 90% showed a pO2 of 85 pCO2 of 80 pH of 7.28. Patient is on propofol at 25 g per acute per minute, off Nimbex for now, not requiring any pressors, hemodynamically parra patient is doing well. Patient is on enteral feeding using vital AF 23 mL per hour. Today I suggested adding fentanyl for adequate ventilation and control agitation as propofol alone does not seem to be enough unless we have to increase the dose. Patient had a sedation holiday yesterday, and not much of an improvement noted in the mental status, and the patient would not respond to any stimuli. I suggested today to start increasing the dose of propofol as she seems to be tachypneic and tachycardic, and if not enough, will add fentanyl. But try to avoid Nimbex if possible. Chest x-ray continues to show bilateral interstitial infiltrates. Lines and tubes seem to be in proper position. Labs today WBC count 15.7 hemoglobin 11.2 d-dimer is 1.2, electrodes are normal except for slightly elevated sodium of 145 bicarb is 35 BUN is 69 creatinine 0.93. LDH is 679 C- reactive protein is 26.6 months much of a change in the last few days in both inflammatory markers. Patient remains on the COVID-19 cocktail, she is also on cefepime. Lovenox 40 mg subcu daily. Patient had Moraxella growing out of her sputum on 08/13 and 08/05. Objective - Vital Signs Vital signs: Vital Signs Temp 98.6 F 08/15/21 08:00 Pulse 86 08/15/21 11:00 Resp 30 H 08/15/21 11:00 BP 128/63 08/15/21 11:00 Pulse Ox 90 L 08/15/21 11:00 Intake & Output 08/14/21 08/15/21 08/15/21 18:59 06:59 18:59 Intake Total 1064.835 729.333 433 Output Total 685 465 180 Balance 379.835 264.333 253 Weight 95.9 kg Intake: IV 276 253 92 Pressure bag 36 33 12 Sodium Chloride 0.9% 1, 240 220 80 000 ml @ 20 mls/hr IV . Q24H [facility] Rx#:[id number] Intake, IV Titration 288.835 158.333 100 Amount Cefepime 2 gm In Sodium 100 Chloride 0.9% 100 ml @ 25 mls/hr IVPB Q12H [facility] Rx# :[id number] Clevidipine Butyrate 25 0.367 158.333 mg In Empty Bag 1 bag @ 1 MG/HR 2 mls/hr IV .Q24H [facility] Rx#:[id number] propofoL 1,000 mg In 188.468 100 Empty Bag 1 bag @ Titrate IV .Q0M [facility] Rx#: [id number] Tube Feeding 310 288 111 Other 190 30 130 Output: Urine 685 465 180 Other: Voiding Method Indwelling Catheter Indwelling Catheter Indwelling Catheter ABP, PAP, CO, CI - Last Documented Arterial Blood Pressure 121/52 - Exam Physical Exam: Revealed a 76-year-old female sedated, on propofol, intubated, in no distress. Head: Atraumatic, normocephalic. Endotracheal tube and orogastric tube are intact. HEENT:[Neck is supple.] [No neck masses.] [No thyromegaly.] [No JVD.] Chest: [Zenaida at the bases no rhonchi and no wheezes. Cardiac Exam: Distant S1 and S2, no S3 gallop. Abdomen: [Obese, Soft, nontender, no megaly, no rebound, no guarding, normal bowel sounds.] Extremities: [No clubbing, no edema, no cyanosis.] Neurological Exam: Not assessed, patient is sedated, however according to the nurse taking care of the patient patient had sedation holiday last night, and not much of the neurological response was noted on this patient. Psychiatric: Could not assess. Skin: No rashes. - Labs CBC & Chem 7: 08/15/21 04:30 08/15/21 04:30 Labs: Abnormal Lab Results - Last 24 Hours (Table) 08/14/21 08/14/21 08/14/21 Range/Units 18:03 20:09 23:34 WBC (3.8-10.6) k/uL RBC (3.80-5.40) m/uL Hgb (11.4-16.0) gm/dL Neutrophils # (1.3-7.7) k/uL Lymphocytes # (1.0-4.8) k/uL D-Dimer (<0.60) mg/L FEU ABG pH (7.35-7.45) ABG pCO2 (35-45) mmHg ABG HCO3 (21-25) mmol/L ABG Total CO2 (19-24) mmol/L Carbon Dioxide (22-30) mmol/L BUN (7-17) mg/dL Glucose (74-99) mg/dL POC Glucose (mg/dL) 112 H 123 H 178 H (75-99) mg/dL ALT (4-34) U/L Alkaline Phosphatase (38-126) U/L Lactate Dehydrogenase (313-618) U/L C-Reactive Protein (<1.0) mg/dL Total Protein (6.3-8.2) g/dL Albumin (3.5-5.0) g/dL 08/15/21 08/15/21 08/15/21 Range/Units 04:30 04:30 04:30 WBC 15.7 H (3.8-10.6) k/uL RBC 3.72 L (3.80-5.40) m/uL Hgb 11.2 L (11.4-16.0) gm/dL Neutrophils # 14.4 H (1.3-7.7) k/uL Lymphocytes # 0.5 L (1.0-4.8) k/uL D-Dimer 1.22 H (<0.60) mg/L FEU ABG pH (7.35-7.45) ABG pCO2 (35-45) mmHg ABG HCO3 (21-25) mmol/L ABG Total CO2 (19-24) mmol/L Carbon Dioxide 35 H (22-30) mmol/L BUN 69 H (7-17) mg/dL Glucose 124 H (74-99) mg/dL POC Glucose (mg/dL) (75-99) mg/dL ALT 46 H (4-34) U/L Alkaline Phosphatase 161 H (38-126) U/L Lactate Dehydrogenase 679 H (313-618) U/L C-Reactive Protein 26.6 H (<1.0) mg/dL Total Protein 5.8 L (6.3-8.2) g/dL Albumin 2.5 L (3.5-5.0) g/dL 08/15/21 Range/Units 05:20 WBC (3.8-10.6) k/uL RBC (3.80-5.40) m/uL Hgb (11.4-16.0) gm/dL Neutrophils # (1.3-7.7) k/uL Lymphocytes # (1.0-4.8) k/uL D-Dimer (<0.60) mg/L FEU ABG pH 7.28 L (7.35-7.45) ABG pCO2 80 H* (35-45) mmHg ABG HCO3 38 H (21-25) mmol/L ABG Total CO2 40 H (19-24) mmol/L Carbon Dioxide (22-30) mmol/L BUN (7-17) mg/dL Glucose (74-99) mg/dL POC Glucose (mg/dL) (75-99) mg/dL ALT (4-34) U/L Alkaline Phosphatase (38-126) U/L Lactate Dehydrogenase (313-618) U/L C-Reactive Protein (<1.0) mg/dL Total Protein (6.3-8.2) g/dL Albumin (3.5-5.0) g/dL Microbiology - Last 24 Hours (Table) 08/13/21 00:11 Gram Stain - Final Sputum Sputum Culture - Final Moraxella(branhamella) catarra Assessment and Plan Assessment: Impression: Acute hypoxic respiratory failure secondary to COVID-19 pneumonia, patient was on baricitinib and this was discontinued because of the Moraxella infection noted. Patient was intubated on 08/05 with minimal improvement since intubation. Possible superimposed Moraxella catarrhalis pneumonia based on positive sputum cultures and the patient remains on cefepime. ARDS secondary to COVID-19 pneumonia Elevated inflammatory markers second to COVID-19 pneumonia Benign essential hypertension Suspect metabolic encephalopathy secondary to COVID-19 pneumonia Dyslipidemia Type 2 diabetes History of hypothyroidism Accommodation: Continue present ventilatory support. Titrate FiO2 down to 75% however keep the PEEP at 16. Otherwise no changes in ventilator settings. Continue Decadron. Keep patient off baricitinib Continue IV cefepime Considered tracheostomy and PEG tube placement however will discuss with the family the overall prognostic picture, may even address the issue of possible comfort care measures. Patient remains critically ill. Critical care time is over 30 minutes. Time with Patient: Greater than 30
[2021-08-15] MEDS: fentaNYL (PF). 1,000 MCG in SODIUM CHLORIDE 0.9% 80 ML IV SCH (12:18)
[2021-08-15 12:38] LABS: Glucose,Whole Blood 161 mg/dL (75-99)
--- NOTE | 2021-08-15 13:37 | P.PN ---
Subjective Progress Note Date: 08/15/21 This is a 76-year-old female who presented to emergency room with cough, congestion, dyspnea and weakness and fatigue over several weeks. Approximately week ago patient took a home Covid test which indicated that she was positive. She has not received Covid vaccine or treatment for the positive Covid test. When symptoms worsened she decided to present to the ER for evaluation and treatment. She was initially placed on BiPAP in the intensive care unit and subsequently been intubated. She is currently paralyzed with cisatracurium, sedated with propofol and utilizing Toradol IV push for pain management. Currently mechanically ventilated on 80% FiO2. Patient is afebrile 96.9, respiratory rate of 26, blood pressure is stable at 109/51, maintain oxygen saturation of 90% and entitle CO2 of 28. Most recent set of vital signs WC count of 15.5, hematocrit of 35.6, hemoglobin 12.0, platelet count 119. Chemistry panel reveals a sodium 138, potassium 3.8, BUN of 19, creatinine 0.72, GFR 83, AST of 99, ELT 106, alk phos 131, LDH 847. TSH of 8.37. T4 0.5, pro- calcitonin 0.34 08/08/2021 remains mechanical ventilator-dependent, FiO2 decreased to 65%, PEEP remains at 20. Continues on Nimbex and diprovan drips. Chest x-ray reported patchy bilateral infiltrate with diffuse interstitial pattern, tiny right-sided pleural effusion, received Lasix. Maintained on Rocephin (Moraxella catarrhalis in the sputum) , Covid cocktail with Baricitinib discontinued. Blood sugars elevated. Afebrile, WBC 13.3. Pro-calcitonin 0.34. 08/09/2021 continues on FiO2 65% with PEEP of 20, Nimbex and diprovan drips. Chest x-ray reporting persistent patchy bilateral infiltrate with diffuse interstitial pattern. Received additional Lasix today Blood sugars elevated, improving, A1c 8.4. Afebrile, WBC 14.3. D-dimer 0.77, ferritin increased to 2512, LDH decreased to 606, CRP increased to 21.2. LFTs decreasing with the exception of alkaline phosphatase, increased to 171. ProBNP 453. Receiving tube feeds to call, tolerating well with minimal to no residuals, stooling. 08/10/2021 remains vent dependent, FiO2 60%/+18 of PEEP. Maintained on Nimbex and diprovan drips. Chest x-ray noted, unchanged. Currently afebrile, T-max 99.1, WBC trending down, 12.7. BUN 24, and 0.74. Repeat pro-calcitonin 0.31. Additional Levemir added to med regimen yesterday, Blood sugars controlled. Received Lasix IV push yesterday again, diuresed well with 24-hour I&O reflecting a negative fluid balance. Sodium within normal limits, 142. 08/11/2021 yesterday patient of placed on Nimbex holiday, during the night unable to tolerate became asynchronous with the ventNimbex resumed. Diprovan drip continues. Maintained on FiO2 65% with PEEP decreased to 17. Maintained on Rocephin ,Covid cocktail. Chest x-ray reporting stable diffuse bilateral infiltrate. Inflammatory markers decreasing.Tolerating tube feeds minimal to no residual. Levemir increased yesterday with blood sugars controlled. Afebrile. 08/12/2021 patient was given another paralytic holiday yesterday and continues off of Nimbex. During the night, difficulty maintaining O2 sats, cuff leak discovered, required higher FiO2. Maintained on diprovan. Currently FIO2 90%, PEEP of 16. Chest x-ray reporting bilateral moderate pulmonary edema, possibly worsening, antibiotics adjusted, now on cefepime. Maintained on Covid cocktail. Blood sugars controlled. Renal function stable. 08/15/2021 remains vent dependent, FiO2 75%/+16 of PEEP. Maintained on diprovan and fentanyl drips. Currently off paralytics. Sedation holiday attempted yesterday with minimal improvement of mental status, no response to any stimuli reported. Chest x-ray reporting persistent bilateral airspace disease. Continues on cefepime. Tolerating tube feeds at goal, with minimal to no residuals, blood sugars controlled. Inflammatory markers mildly increased. Objective - Vital Signs Vital signs: Vital Signs Temp 98.6 F 08/15/21 08:00 Pulse 86 08/15/21 11:00 Resp 30 H 08/15/21 11:00 BP 128/63 08/15/21 11:00 Pulse Ox 90 L 08/15/21 11:00 Intake & Output 08/14/21 08/15/21 08/15/21 18:59 06:59 18:59 Intake Total 1064.835 729.333 433 Output Total 685 465 180 Balance 379.835 264.333 253 Weight 95.9 kg Intake: IV 276 253 92 Pressure bag 36 33 12 Sodium Chloride 0.9% 1, 240 220 80 000 ml @ 20 mls/hr IV . Q24H [facility] Rx#:[id number] Intake, IV Titration 288.835 158.333 100 Amount Cefepime 2 gm In Sodium 100 Chloride 0.9% 100 ml @ 25 mls/hr IVPB Q12H [facility] Rx# :[id number] Clevidipine Butyrate 25 0.367 158.333 mg In Empty Bag 1 bag @ 1 MG/HR 2 mls/hr IV .Q24H [facility] Rx#:[id number] propofoL 1,000 mg In 188.468 100 Empty Bag 1 bag @ Titrate IV .Q0M [facility] Rx#: [id number] Tube Feeding 310 288 111 Other 190 30 130 Output: Urine 685 465 180 Other: Voiding Method Indwelling Catheter Indwelling Catheter Indwelling Catheter ABP, PAP, CO, CI - Last Documented Arterial Blood Pressure 121/52 - Exam - Exam: limited Exam r/t to COVID GENERAL: intubated, sedated, NAD Lungs: Mechanically ventilated, bilateral bases diminished Heart: Regular rate and rhythm per property assessment monitor Abdomen: Soft, nondistended, positive bowel sounds Extremities: No edema Neurological: Sedated - Labs CBC & Chem 7: 08/15/21 04:30 08/15/21 04:30 Labs: Abnormal Lab Results - Last 24 Hours (Table) 08/14/21 08/14/21 08/14/21 Range/Units 18:03 20:09 23:34 WBC (3.8-10.6) k/uL RBC (3.80-5.40) m/uL Hgb (11.4-16.0) gm/dL Neutrophils # (1.3-7.7) k/uL Lymphocytes # (1.0-4.8) k/uL D-Dimer (<0.60) mg/L FEU ABG pH (7.35-7.45) ABG pCO2 (35-45) mmHg ABG HCO3 (21-25) mmol/L ABG Total CO2 (19-24) mmol/L Carbon Dioxide (22-30) mmol/L BUN (7-17) mg/dL Glucose (74-99) mg/dL POC Glucose (mg/dL) 112 H 123 H 178 H (75-99) mg/dL ALT (4-34) U/L Alkaline Phosphatase (38-126) U/L Lactate Dehydrogenase (313-618) U/L C-Reactive Protein (<1.0) mg/dL Total Protein (6.3-8.2) g/dL Albumin (3.5-5.0) g/dL 08/15/21 08/15/21 08/15/21 Range/Units 04:30 04:30 04:30 WBC 15.7 H (3.8-10.6) k/uL RBC 3.72 L (3.80-5.40) m/uL Hgb 11.2 L (11.4-16.0) gm/dL Neutrophils # 14.4 H (1.3-7.7) k/uL Lymphocytes # 0.5 L (1.0-4.8) k/uL D-Dimer 1.22 H (<0.60) mg/L FEU ABG pH (7.35-7.45) ABG pCO2 (35-45) mmHg ABG HCO3 (21-25) mmol/L ABG Total CO2 (19-24) mmol/L Carbon Dioxide 35 H (22-30) mmol/L BUN 69 H (7-17) mg/dL Glucose 124 H (74-99) mg/dL POC Glucose (mg/dL) (75-99) mg/dL ALT 46 H (4-34) U/L Alkaline Phosphatase 161 H (38-126) U/L Lactate Dehydrogenase 679 H (313-618) U/L C-Reactive Protein 26.6 H (<1.0) mg/dL Total Protein 5.8 L (6.3-8.2) g/dL Albumin 2.5 L (3.5-5.0) g/dL 08/15/21 Range/Units 05:20 WBC (3.8-10.6) k/uL RBC (3.80-5.40) m/uL Hgb (11.4-16.0) gm/dL Neutrophils # (1.3-7.7) k/uL Lymphocytes # (1.0-4.8) k/uL D-Dimer (<0.60) mg/L FEU ABG pH 7.28 L (7.35-7.45) ABG pCO2 80 H* (35-45) mmHg ABG HCO3 38 H (21-25) mmol/L ABG Total CO2 40 H (19-24) mmol/L Carbon Dioxide (22-30) mmol/L BUN (7-17) mg/dL Glucose (74-99) mg/dL POC Glucose (mg/dL) (75-99) mg/dL ALT (4-34) U/L Alkaline Phosphatase (38-126) U/L Lactate Dehydrogenase (313-618) U/L C-Reactive Protein (<1.0) mg/dL Total Protein (6.3-8.2) g/dL Albumin (3.5-5.0) g/dL Microbiology - Last 24 Hours (Table) 08/13/21 00:11 Gram Stain - Final Sputum Sputum Culture - Final Moraxella(branhamella) catarra Assessment and Plan Assessment: Acute Covid pneumonia, sputum culture reporting Moraxella Catarrhalis Acute hypoxic respiratory failure secondary to the above, mechanical ventilator dependent ARDS secondary to acute COVID-19 pneumonia Diabetes mellitus type 2, hyperglycemic, hemoglobin A1c 8.4 Hypothyroidism Essential hypertension Hyperlipidemia Plan: Continue on current medication regime ,monitoring and symptomatic treatment. Continue covid cocktail. ICU management as per analysis analyst. Prognosis poor related to multiple complex medical issues. The impression and plan of care has been dictated as directed. : I performed a history and examination of this patient, discussed the same with the dictator. I agree with the dictator's note ,documented as a scribe. Any additional findings or plans will be noted.
[2021-08-15 18:12] LABS: Glucose,Whole Blood 200 mg/dL (75-99)
[2021-08-15] MEDS: SODIUM CHLORIDE 0.9% 1,000 ML IV SCH (20:32)
[2021-08-16 00:57] LABS: Glucose,Whole Blood 162 mg/dL (75-99)
[2021-08-16] MEDS: ALBUTEROL HFA INHALER INHALATION SCH ×6 (01:05→19:46)
[2021-08-16] MEDS: ARTIFICIAL TEARS-HYPROMELLOSE DROPS 15 ML BTL BOTH EYES SCH ×6 (01:22→20:05)
[2021-08-16] MEDS: INSULIN ASPART (NovoLOG) 100 UNIT/ML VIAL SQ SCH ×4 (01:22→19:04)
[2021-08-16 04:44] LABS: Basophils # (A) 0.1 k/uL (0-0.2); Basophils % (A) 0 %; Eosinophils # (A) 0.1 k/uL (0-0.7); Eosinophils % (A) 1 %; HCT 35.2 % (34.0-46.0); HGB 11.3 gm/dL (11.4-16.0); Hypochromasia Slight; Lymphocytes # (A) 0.5 k/uL (1.0-4.8); Lymphocytes % (A) 3 %; MCH 31.4 pg (25.0-35.0); MCHC 32.2 g/dL (31.0-37.0); MCV 97.6 fL (80.0-100.0); Mean Platelet Volume 8.8; Monocytes # (A) 0.5 k/uL (0-1.0); Monocytes % (A) 3 %; Neutrophils # (A) 14.5 k/uL (1.3-7.7); Neutrophils % (A) 92 %; Platelet Count 239 k/uL (150-450); RBC 3.61 m/uL (3.80-5.40); WBC 15.7 k/uL (3.8-10.6)
[2021-08-16] MEDS: fentaNYL (PF). 1,000 MCG in SODIUM CHLORIDE 0.9% 80 ML IV SCH ×2 (04:58→22:56)
[2021-08-16 04:59] LABS: Albumin 2.6 g/dL (3.5-5.0); Calcium 9.5 mg/dL (8.4-10.2); Potassium 5.1 mmol/L (3.5-5.1); Total Bilirubin 0.3 mg/dL (0.2-1.3)
[2021-08-16 05:21] LABS: C Reactive Protein 18.7 mg/dL (<1.0)
[2021-08-16 06:13] LABS: ABG Base Excess 9.9 mmol/L; ABG HCO3 37 mmol/L (21-25); ABG Oxygen Saturation 94.8 % (94-97); ABG PH 7.24 (7.35-7.45); ABG PO2 74 mmHg (83-108); ABG TCO2 40 mmol/L (19-24); Allen Test Performed? Yes
[2021-08-16 06:15] LABS: ABG PCO2 88 mmHg (35-45)
[2021-08-16] MEDS: INSULIN DETEMIR (LEVEMIR) 100 UNIT/ML SYR SQ SCH ×2 (06:45→21:08)
[2021-08-16] MEDS: LEVOTHYROXINE 100 MCG TAB OG-TUBE SCH (06:47)
[2021-08-16] MEDS: PANTOPRAZOLE 40 MG/10 ML VIAL IVP SCH (09:14)
[2021-08-16] MEDS: ASCORBIC ACID 500 MG TAB PO SCH (09:14)
[2021-08-16] MEDS: CHOLECALCIFEROL 125 MCG (5000 IU) TABLET PO SCH (09:14)
[2021-08-16] MEDS: ENOXAPARIN 40 MG/0.4 ML SYRINGE SQ SCH (09:14)
[2021-08-16] MEDS: ZINC SULFATE 220 MG CAP PO SCH (09:15)
[2021-08-16] MEDS: CHLORHEXIDINE GLUCONATE 15 ML CUP MUCOUS MEM SCH ×2 (09:47→21:07)
[2021-08-16] MEDS: DEXAMETHASONE SOD PHOSPHATE 10 MG/ML 1 ML VIAL IVP SCH (09:47)
[2021-08-16] MEDS: CEFEPIME 2 GM in SODIUM CHLORIDE 0.9% 100 ML IVPB SCH ×2 (09:47→20:58)
--- NOTE | 2021-08-16 10:05 | XR ---
EXAMINATION TYPE: XR chest 1V portable DATE OF EXAM: 08/16/2021 COMPARISON: 08/15/2021 HISTORY: Cough TECHNIQUE: Single frontal view of the chest is obtained. FINDINGS: ET, NG tube and central line stable. Diffuse interstitial and alveolar infiltrates with ti ny effusion stable. Heart size unchanged. No pneumothorax. IMPRESSION: Correlate for diffuse pneumonia or ARDS. CHF not excluded.
[2021-08-16 13:06] LABS: Glucose,Whole Blood 196 mg/dL (75-99)
--- NOTE | 2021-08-16 13:28 | P.PN ---
Subjective Progress Note Date: 08/16/21 This is a 76-year-old female who presented to emergency room with cough, congestion, dyspnea and weakness and fatigue over several weeks. Approximately week ago patient took a home Covid test which indicated that she was positive. She has not received Covid vaccine or treatment for the positive Covid test. When symptoms worsened she decided to present to the ER for evaluation and treatment. She was initially placed on BiPAP in the intensive care unit and subsequently been intubated. She is currently paralyzed with cisatracurium, sedated with propofol and utilizing Toradol IV push for pain management. Currently mechanically ventilated on 80% FiO2. Patient is afebrile 96.9, respiratory rate of 26, blood pressure is stable at 109/51, maintain oxygen saturation of 90% and entitle CO2 of 28. Most recent set of vital signs WC count of 15.5, hematocrit of 35.6, hemoglobin 12.0, platelet count 119. Chemistry panel reveals a sodium 138, potassium 3.8, BUN of 19, creatinine 0.72, GFR 83, AST of 99, ELT 106, alk phos 131, LDH 847. TSH of 8.37. T4 0.5, pro- calcitonin 0.34 08/08/2021 remains mechanical ventilator-dependent, FiO2 decreased to 65%, PEEP remains at 20. Continues on Nimbex and diprovan drips. Chest x-ray reported patchy bilateral infiltrate with diffuse interstitial pattern, tiny right-sided pleural effusion, received Lasix. Maintained on Rocephin (Moraxella catarrhalis in the sputum) , Covid cocktail with Baricitinib discontinued. Blood sugars elevated. Afebrile, WBC 13.3. Pro-calcitonin 0.34. 08/09/2021 continues on FiO2 65% with PEEP of 20, Nimbex and diprovan drips. Chest x-ray reporting persistent patchy bilateral infiltrate with diffuse interstitial pattern. Received additional Lasix today Blood sugars elevated, improving, A1c 8.4. Afebrile, WBC 14.3. D-dimer 0.77, ferritin increased to 2512, LDH decreased to 606, CRP increased to 21.2. LFTs decreasing with the exception of alkaline phosphatase, increased to 171. ProBNP 453. Receiving tube feeds to call, tolerating well with minimal to no residuals, stooling. 08/10/2021 remains vent dependent, FiO2 60%/+18 of PEEP. Maintained on Nimbex and diprovan drips. Chest x-ray noted, unchanged. Currently afebrile, T-max 99.1, WBC trending down, 12.7. BUN 24, and 0.74. Repeat pro-calcitonin 0.31. Additional Levemir added to med regimen yesterday, Blood sugars controlled. Received Lasix IV push yesterday again, diuresed well with 24-hour I&O reflecting a negative fluid balance. Sodium within normal limits, 142. 08/11/2021 yesterday patient of placed on Nimbex holiday, during the night unable to tolerate became asynchronous with the ventNimbex resumed. Diprovan drip continues. Maintained on FiO2 65% with PEEP decreased to 17. Maintained on Rocephin ,Covid cocktail. Chest x-ray reporting stable diffuse bilateral infiltrate. Inflammatory markers decreasing.Tolerating tube feeds minimal to no residual. Levemir increased yesterday with blood sugars controlled. Afebrile. 08/12/2021 patient was given another paralytic holiday yesterday and continues off of Nimbex. During the night, difficulty maintaining O2 sats, cuff leak discovered, required higher FiO2. Maintained on diprovan. Currently FIO2 90%, PEEP of 16. Chest x-ray reporting bilateral moderate pulmonary edema, possibly worsening, antibiotics adjusted, now on cefepime. Maintained on Covid cocktail. Blood sugars controlled. Renal function stable. 08/15/2021 remains vent dependent, FiO2 75%/+16 of PEEP. Maintained on diprovan and fentanyl drips. Currently off paralytics. Sedation holiday attempted yesterday with minimal improvement of mental status, no response to any stimuli reported. Chest x-ray reporting persistent bilateral airspace disease. Continues on cefepime. Tolerating tube feeds at goal, with minimal to no residuals, blood sugars controlled. Inflammatory markers mildly increased. 08/16/2021 remains vent dependent, FiO2 65%/+16 of PEEP. Chest x-ray reporting diffuse interstitial and alveolar infiltrates. Maintained on diprovan and fentanyl drips. Records Clerk currently discussing treatment of trach and peg with family. T-max 99.1, WBC 15.7. D-dimer, CRP decreased, LDH increased. Objective - Vital Signs Vital signs: Vital Signs Temp 99.1 F 08/16/21 08:00 Pulse 86 08/16/21 11:00 Resp 34 H 08/16/21 11:00 BP 128/63 08/16/21 11:00 Pulse Ox 93 L 08/16/21 11:00 Intake & Output 08/15/21 08/16/21 08/16/21 18:59 06:59 18:59 Intake Total 885 1286.368 558.483 Output Total 420 395 175 Balance 465 891.368 383.483 Weight 95.9 kg 96 kg Intake: IV 253 276 115 Pressure bag 33 36 15 Sodium Chloride 0.9% 1, 220 240 100 000 ml @ 20 mls/hr IV . Q24H [facility] Rx#:[id number] Intake, IV Titration 100 262.368 135.483 Amount Cefepime 2 gm In Sodium 100 Chloride 0.9% 100 ml @ 25 mls/hr IVPB Q12H [facility] Rx# :[id number] fentaNYL (PF). 1,000 mcg 79.917 In Sodium Chloride 0.9% 80 ml @ 0.5 MCG/KG/HR 4. 795 mls/hr IV .[id number] [facility] Rx#:[id number] propofoL 1,000 mg In 100 182.451 35.483 Empty Bag 1 bag @ Titrate IV .Q0M [facility] Rx#: [id number] Tube Feeding 342 418 178 Other 190 330 130 Output: Urine 420 395 175 Other: Voiding Method Indwelling Catheter Indwelling Catheter Indwelling Catheter ABP, PAP, CO, CI - Last Documented Arterial Blood Pressure 128/54 - Exam - Exam: limited Exam r/t to COVID GENERAL: intubated, sedated, NAD Lungs: Mechanically ventilated, bilateral bases diminished Heart: Regular rate and rhythm per engraver rubber Abdomen: Soft, nondistended, positive bowel sounds Extremities: No edema Neurological: Sedated - Labs CBC & Chem 7: 08/16/21 04:14 08/16/21 04:14 Labs: Abnormal Lab Results - Last 24 Hours (Table) 08/15/21 08/15/21 08/16/21 Range/Units 12:36 18:10 00:56 WBC (3.8-10.6) k/uL RBC (3.80-5.40) m/uL Hgb (11.4-16.0) gm/dL Neutrophils # (1.3-7.7) k/uL Lymphocytes # (1.0-4.8) k/uL D-Dimer (<0.60) mg/L FEU ABG pH (7.35-7.45) ABG pCO2 (35-45) mmHg ABG pO2 (83-108) mmHg ABG HCO3 (21-25) mmol/L ABG Total CO2 (19-24) mmol/L Carbon Dioxide (22-30) mmol/L BUN (7-17) mg/dL Glucose (74-99) mg/dL POC Glucose (mg/dL) 161 H 200 H 162 H (75-99) mg/dL ALT (4-34) U/L Alkaline Phosphatase (38-126) U/L Lactate Dehydrogenase (313-618) U/L C-Reactive Protein (<1.0) mg/dL Total Protein (6.3-8.2) g/dL Albumin (3.5-5.0) g/dL 08/16/21 08/16/21 08/16/21 Range/Units 04:14 04:14 04:14 WBC 15.7 H (3.8-10.6) k/uL RBC 3.61 L (3.80-5.40) m/uL Hgb 11.3 L (11.4-16.0) gm/dL Neutrophils # 14.5 H (1.3-7.7) k/uL Lymphocytes # 0.5 L (1.0-4.8) k/uL D-Dimer 1.12 H (<0.60) mg/L FEU ABG pH (7.35-7.45) ABG pCO2 (35-45) mmHg ABG pO2 (83-108) mmHg ABG HCO3 (21-25) mmol/L ABG Total CO2 (19-24) mmol/L Carbon Dioxide 35 H (22-30) mmol/L BUN 83 H (7-17) mg/dL Glucose 173 H (74-99) mg/dL POC Glucose (mg/dL) (75-99) mg/dL ALT 35 H (4-34) U/L Alkaline Phosphatase 141 H (38-126) U/L Lactate Dehydrogenase 766 H (313-618) U/L C-Reactive Protein 18.7 H (<1.0) mg/dL Total Protein 6.0 L (6.3-8.2) g/dL Albumin 2.6 L (3.5-5.0) g/dL 08/16/21 Range/Units 06:10 WBC (3.8-10.6) k/uL RBC (3.80-5.40) m/uL Hgb (11.4-16.0) gm/dL Neutrophils # (1.3-7.7) k/uL Lymphocytes # (1.0-4.8) k/uL D-Dimer (<0.60) mg/L FEU ABG pH 7.24 L (7.35-7.45) ABG pCO2 88 H* (35-45) mmHg ABG pO2 74 L (83-108) mmHg ABG HCO3 37 H (21-25) mmol/L ABG Total CO2 40 H (19-24) mmol/L Carbon Dioxide (22-30) mmol/L BUN (7-17) mg/dL Glucose (74-99) mg/dL POC Glucose (mg/dL) (75-99) mg/dL ALT (4-34) U/L Alkaline Phosphatase (38-126) U/L Lactate Dehydrogenase (313-618) U/L C-Reactive Protein (<1.0) mg/dL Total Protein (6.3-8.2) g/dL Albumin (3.5-5.0) g/dL Microbiology - Last 24 Hours (Table) 08/13/21 00:11 Gram Stain - Final Sputum Sputum Culture - Final Moraxella(branhamella) catarra Assessment and Plan Assessment: Acute Covid pneumonia, sputum culture reporting Moraxella Catarrhalis Acute hypoxic respiratory failure secondary to the above, mechanical ventilator dependent ARDS secondary to acute COVID-19 pneumonia Diabetes mellitus type 2, hyperglycemic, hemoglobin A1c 8.4 Hypothyroidism Essential hypertension Hyperlipidemia Plan: Continue on current medication regime ,monitoring and symptomatic treatment. Maintain covid cocktail. ICU management as per gas leak inspector helper. Surgery consulted regarding trach and peg tomorrow .Prognosis poor related to multiple complex medical issues. The impression and plan of care has been dictated as directed. : I performed a history and examination of this patient, discussed the same with the dictator. I agree with the dictator's note ,documented as a scribe. Any additional findings or plans will be noted.
--- NOTE | 2021-08-16 13:32 | P.PN ---
Subjective Progress Note Date: 08/16/21 Principal diagnosis: Acute hypoxic arthrodesis failure second to COVID-19 pneumonia 08/14/2021, the patient's condition remains essentially unchanged. She has post COVID 19 related pneumonia with secondary ARDS and her oxygenation has remained unchanged and her ventilator settings have been essentially remained stable over the past several days. This morning, the patient remains sedated and she is currently on propofol running at a rate of 45 mcg/kg per minute. The patient is not paralyzed at this point in time. We should be able to cut down her sedation to a lower level at this point. Meanwhile, we are still allowed permissive hypercapnia. She is on low tidal volume mechanical ventilation with a tidal volume of 325, rate of 26, PEEP is at 60 with an FiO2 of 90%. Peak airway pressures 33. Static pressures 31 and all of these numbers are comparable to yesterday. The blood gas showed a pH of 7.37 with a pCO2 of 60 and pO2 of 60. She remains on IV cefepime as the cultures Moraxella in her sputum. Her respiratory secretions are scant at this point in time. She is afebrile. She is hemodynamic is stable. She remains on Decadron. Her mother markers have improved specially the LDH. Her CRP was still elevated at 23 however this was also downtrending. She remains on enteral feeding for nutritional support. She is receiving vital AF and she is currently ongoing. Urine output is adequate. Overall fluid balance over the past 24 hours has been +457 mL. No signs of any significant: Overload. Noted the patient has been intubated on 08/05/2021 and h er progress has been essentially minimal at this point in time. Unable to do any further weaning from mechanical ventilator due to her poor oxygenation status. Chest x-ray from yesterday was noted. A repeat chest x-ray will be done today. Rest of the blood work essentially stable. She remains on Levemir insulin 30 units in the morning and 10 units in the evening and she is also on a sliding scale insulin coverage. She is also on Lovenox 40 mg subcu for DVT prophylaxis. IV fluids are currently at KVO. Reevaluated today on 08/15/2021, patient remains in the ICU, intubated and mechanically ventilated. She is presently on assist control rate of 26, tidal volume of 325 FiO2 75% PEEP 16. ABG earlier on 90% showed a pO2 of 85 pCO2 of 80 pH of 7.28. Patient is on propofol at 25 g per acute per minute, off Nimbex for now, not requiring any pressors, hemodynamically parra patient is doing well. Patient is on enteral feeding using vital AF 23 mL per hour. Today I suggested adding fentanyl for adequate ventilation and control agitation as propofol alone does not seem to be enough unless we have to increase the dose. Patient had a sedation holiday yesterday, and not much of an improvement noted in the mental status, and the patient would not respond to any stimuli. I suggested today to start increasing the dose of propofol as she seems to be tachypneic and tachycardic, and if not enough, will add fentanyl. But try to avoid Nimbex if possible. Chest x-ray continues to show bilateral interstitial infiltrates. Lines and tubes seem to be in proper position. Labs today WBC count 15.7 hemoglobin 11.2 d-dimer is 1.2, electrodes are normal except for slightly elevated sodium of 145 bicarb is 35 BUN is 69 creatinine 0.93. LDH is 679 C- reactive protein is 26.6 months much of a change in the last few days in both inflammatory markers. Patient remains on the COVID-19 cocktail, she is also on cefepime. Lovenox 40 mg subcu daily. Patient had Moraxella growing out of her sputum on 08/13 and 08/05. Patient was reevaluated today on 08/16/2021, remains in the ICU, intubated and mechanically ventilated. Patient is on assist control rate of 26 tidal volume 325 PEEP of 16 FiO2 75%, ABG showed a pO2 of 73 pCO2 87 pH of 7.24 hence her respiratory rate was increased to 32. Patient remains on propofol at 50 fentanyl at 0.5 mcg/kg/h, she is not requiring Nimbex. Patient had a relatively elevated inflammatory markers including LDH of 766 and C-reactive protein of 18.7. Chest x-ray is not showing much of a change, continues to have bilateral interstitial infiltrates. WBC count showed the 15.7, hemoglobin 11.3 ID d-dimer is 1.12 Objective - Vital Signs Vital signs: Vital Signs Temp 99.1 F 08/16/21 08:00 Pulse 86 08/16/21 13:00 Resp 35 H 08/16/21 13:00 BP 128/63 08/16/21 13:00 Pulse Ox 94 L 08/16/21 13:00 Intake & Output 08/15/21 08/16/21 08/16/21 18:59 06:59 18:59 Intake Total 885 1286.368 738.272 Output Total 420 395 255 Balance 465 891.368 483.272 Weight 95.9 kg 96 kg Intake: IV 253 276 161 Pressure bag 33 36 21 Sodium Chloride 0.9% 1, 220 240 140 000 ml @ 20 mls/hr IV . Q24H [facility] Rx#:[id number] Intake, IV Titration 100 262.368 177.272 Amount Cefepime 2 gm In Sodium 100 Chloride 0.9% 100 ml @ 25 mls/hr IVPB Q12H [facility] Rx# :[id number] fentaNYL (PF). 1,000 mcg 79.917 In Sodium Chloride 0.9% 80 ml @ 0.5 MCG/KG/HR 4. 795 mls/hr IV .[id number] [facility] Rx#:[id number] propofoL 1,000 mg In 100 182.451 77.272 Empty Bag 1 bag @ Titrate IV .Q0M [facility] Rx#: [id number] Tube Feeding 342 418 240 Other 190 330 160 Output: Urine 420 395 255 Other: Voiding Method Indwelling Catheter Indwelling Catheter Indwelling Catheter ABP, PAP, CO, CI - Last Documented Arterial Blood Pressure 125/53 - Exam Physical Exam: Revealed a 76-year-old female sedated, on propofol, intubated, in no distress. Head: Atraumatic, normocephalic. Endotracheal tube and orogastric tube are intact. HEENT:[Neck is supple.] [No neck masses.] [No thyromegaly.] [No JVD.] Chest: [Zenaida at the bases no rhonchi and no wheezes. Cardiac Exam: Distant S1 and S2, no S3 gallop. Abdomen: [Obese, Soft, nontender, no megaly, no rebound, no guarding, normal bowel sounds.] Extremities: [No clubbing, no edema, no cyanosis.] Neurological Exam: Difficult to assess. patient is on low dose of propofol and she is also on fentanyl. Psychiatric: Could not assess. Skin: No rashes. - Labs CBC & Chem 7: 08/16/21 04:14 08/16/21 04:14 Labs: Abnormal Lab Results - Last 24 Hours (Table) 08/15/21 08/16/21 08/16/21 Range/Units 18:10 00:56 04:14 WBC 15.7 H (3.8-10.6) k/uL RBC 3.61 L (3.80-5.40) m/uL Hgb 11.3 L (11.4-16.0) gm/dL Neutrophils # 14.5 H (1.3-7.7) k/uL Lymphocytes # 0.5 L (1.0-4.8) k/uL D-Dimer (<0.60) mg/L FEU ABG pH (7.35-7.45) ABG pCO2 (35-45) mmHg ABG pO2 (83-108) mmHg ABG HCO3 (21-25) mmol/L ABG Total CO2 (19-24) mmol/L Carbon Dioxide (22-30) mmol/L BUN (7-17) mg/dL Glucose (74-99) mg/dL POC Glucose (mg/dL) 200 H 162 H (75-99) mg/dL ALT (4-34) U/L Alkaline Phosphatase (38-126) U/L Lactate Dehydrogenase (313-618) U/L C-Reactive Protein (<1.0) mg/dL Total Protein (6.3-8.2) g/dL Albumin (3.5-5.0) g/dL 08/16/21 08/16/21 08/16/21 Range/Units 04:14 04:14 06:10 WBC (3.8-10.6) k/uL RBC (3.80-5.40) m/uL Hgb (11.4-16.0) gm/dL Neutrophils # (1.3-7.7) k/uL Lymphocytes # (1.0-4.8) k/uL D-Dimer 1.12 H (<0.60) mg/L FEU ABG pH 7.24 L (7.35-7.45) ABG pCO2 88 H* (35-45) mmHg ABG pO2 74 L (83-108) mmHg ABG HCO3 37 H (21-25) mmol/L ABG Total CO2 40 H (19-24) mmol/L Carbon Dioxide 35 H (22-30) mmol/L BUN 83 H (7-17) mg/dL Glucose 173 H (74-99) mg/dL POC Glucose (mg/dL) (75-99) mg/dL ALT 35 H (4-34) U/L Alkaline Phosphatase 141 H (38-126) U/L Lactate Dehydrogenase 766 H (313-618) U/L C-Reactive Protein 18.7 H (<1.0) mg/dL Total Protein 6.0 L (6.3-8.2) g/dL Albumin 2.6 L (3.5-5.0) g/dL 08/16/21 Range/Units 12:53 WBC (3.8-10.6) k/uL RBC (3.80-5.40) m/uL Hgb (11.4-16.0) gm/dL Neutrophils # (1.3-7.7) k/uL Lymphocytes # (1.0-4.8) k/uL D-Dimer (<0.60) mg/L FEU ABG pH (7.35-7.45) ABG pCO2 (35-45) mmHg ABG pO2 (83-108) mmHg ABG HCO3 (21-25) mmol/L ABG Total CO2 (19-24) mmol/L Carbon Dioxide (22-30) mmol/L BUN (7-17) mg/dL Glucose (74-99) mg/dL POC Glucose (mg/dL) 196 H (75-99) mg/dL ALT (4-34) U/L Alkaline Phosphatase (38-126) U/L Lactate Dehydrogenase (313-618) U/L C-Reactive Protein (<1.0) mg/dL Total Protein (6.3-8.2) g/dL Albumin (3.5-5.0) g/dL Microbiology - Last 24 Hours (Table) 08/13/21 00:11 Gram Stain - Final Sputum Sputum Culture - Final Moraxella(branhamella) catarra Assessment and Plan Assessment: Impression: Acute hypoxic respiratory failure secondary to COVID-19 pneumonia, patient was on baricitinib and this was discontinued because of the Moraxella infection noted. Patient was intubated on 08/05 with minimal improvement since intubation. Possible superimposed Moraxella catarrhalis pneumonia based on positive sputum cultures and the patient remains on cefepime. ARDS secondary to COVID-19 pneumonia Elevated inflammatory markers second to COVID-19 pneumonia Benign essential hypertension Suspect metabolic encephalopathy secondary to COVID-19 pneumonia Dyslipidemia Type 2 diabetes History of hypothyroidism Recommendations: Updated her [id number] on her situation, and made aware that she is not making significant improvement, discussed even the issue of tracheostomy and PEG tube placement and the family is willing to proceed. Continue present ventilatory support. Titrate FiO2 down as tolerated. Today I increased her rate up to 3 to Her on the same ventilator settings otherwise remains on relatively high FiO2 75% and PEEP of 16 Continue Decadron. Keep patient off baricitinib Continue IV cefepime for her presumed Moraxella catarrhalis pneumonia Family is agreeable to proceed with tracheostomy and PEG tube placement. Patient remains critically ill. Critical care time is over 30 minutes. Time with Patient: Greater than 30
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
[2021-08-16 18:32] LABS: Glucose,Whole Blood 183 mg/dL (75-99)
[2021-08-16] MEDS: SODIUM CHLORIDE 0.9% 1,000 ML IV SCH (21:08)
[2021-08-17 02:16] LABS: Glucose,Whole Blood 159 mg/dL (75-99)
[2021-08-17] MEDS ORDERED: PROPOFOL 10 MG/ML 100 ML VIAL IV ONE (02:30)
[2021-08-17] MEDS: ALBUTEROL HFA INHALER INHALATION SCH ×7 (03:08→23:18)
[2021-08-17] MEDS: ARTIFICIAL TEARS-HYPROMELLOSE DROPS 15 ML BTL BOTH EYES SCH ×2 (04:40→06:46)
[2021-08-17 05:07] LABS: Basophils # (A) 0.1 k/uL (0-0.2); Basophils % (A) 1 %; Eosinophils # (A) 0.2 k/uL (0-0.7); Eosinophils % (A) 1 %; HCT 35.3 % (34.0-46.0); HGB 10.6 gm/dL (11.4-16.0); Hypochromasia Marked; Lymphocytes # (A) 0.5 k/uL (1.0-4.8); Lymphocytes % (A) 4 %; MCH 30.2 pg (25.0-35.0); MCV 100.5 fL (80.0-100.0); Mean Platelet Volume 8.9; Monocytes # (A) 0.6 k/uL (0-1.0); Monocytes % (A) 4 %; Neutrophils # (A) 12.1 k/uL (1.3-7.7); Neutrophils % (A) 89 %; Platelet Count 206 k/uL (150-450); RBC 3.51 m/uL (3.80-5.40); RDW 13.6 % (11.5-15.5); WBC 13.5 k/uL (3.8-10.6)
[2021-08-17 05:45] LABS: ABG Base Excess 10.7 mmol/L; ABG HCO3 37 mmol/L (21-25); ABG Oxygen Saturation 87.2 % (94-97); ABG PH 7.32 (7.35-7.45); ABG TCO2 39 mmol/L (19-24)
[2021-08-17 06:03] LABS: Albumin 2.6 g/dL (3.5-5.0); C Reactive Protein 8.7 mg/dL (<1.0); Calcium 9.8 mg/dL (8.4-10.2); Potassium 5.1 mmol/L (3.5-5.1); Total Bilirubin 0.4 mg/dL (0.2-1.3); Total Protein 5.8 g/dL (6.3-8.2)
[2021-08-17 06:10] LABS: ABG PCO2 72 mmHg (35-45)
[2021-08-17 06:11] LABS: ABG PO2 52 mmHg (83-108)
[2021-08-17 06:12] LABS: Allen Test Performed? no
[2021-08-17 06:34] LABS: Glucose,Whole Blood 183 mg/dL (75-99)
[2021-08-17] MEDS: INSULIN ASPART (NovoLOG) 100 UNIT/ML VIAL SQ SCH ×4 (06:46→17:50)
[2021-08-17] MEDS: LEVOTHYROXINE 100 MCG TAB OG-TUBE SCH (06:47)
[2021-08-17] MEDS: INSULIN DETEMIR (LEVEMIR) 100 UNIT/ML SYR SQ SCH ×2 (06:50→22:58)
[2021-08-17] MEDS: ENOXAPARIN 40 MG/0.4 ML SYRINGE SQ SCH (07:26)
[2021-08-17] MEDS: DEXAMETHASONE SOD PHOSPHATE 10 MG/ML 1 ML VIAL IVP SCH (08:22)
[2021-08-17] MEDS: CHLORHEXIDINE GLUCONATE 15 ML CUP MUCOUS MEM SCH ×2 (08:22→22:58)
[2021-08-17] MEDS: CEFEPIME 2 GM in SODIUM CHLORIDE 0.9% 100 ML IVPB SCH ×2 (08:22→22:57)
[2021-08-17] MEDS: ZINC SULFATE 220 MG CAP PO SCH (08:23)
[2021-08-17] MEDS: CHOLECALCIFEROL 125 MCG (5000 IU) TABLET PO SCH (08:23)
[2021-08-17] MEDS: PANTOPRAZOLE 40 MG/10 ML VIAL IVP SCH (08:23)
--- NOTE | 2021-08-17 08:56 | XR ---
EXAMINATION TYPE: XR chest 1V portable DATE OF EXAM: 08/17/2021 COMPARISON: 08/16/2021 HISTORY: Shortness of breath TECHNIQUE: Single frontal view of the chest is obtained. FINDINGS: ET, NG tube and central line stable. Diffuse interstitial and alveolar infiltrates with ti ny effusion stable. Heart size unchanged. No pneumothorax. IMPRESSION: " For diffuse pneumonia or ARDS.
[2021-08-17] MEDS: fentaNYL (PF). 1,000 MCG in SODIUM CHLORIDE 0.9% 80 ML IV SCH ×2 (10:10→21:19)
[2021-08-17] MEDS: DEXTROSE 5%-0.45% NACL 1,000 ML IV SCH ×2 (11:04→22:58)
--- NOTE | 2021-08-17 12:01 | P.PN ---
Subjective Progress Note Date: 08/17/21 Principal diagnosis: Acute hypoxic resp. failure second to COVID-19 pneumonia 08/14/2021, the patient's condition remains essentially unchanged. She has post COVID 19 related pneumonia with secondary ARDS and her oxygenation has remained unchanged and her ventilator settings have been essentially remained stable over the past several days. This morning, the patient remains sedated and she is currently on propofol running at a rate of 45 mcg/kg per minute. The patient is not paralyzed at this point in time. We should be able to cut down her sedation to a lower level at this point. Meanwhile, we are still allowed permissive hypercapnia. She is on low tidal volume mechanical ventilation with a tidal volume of 325, rate of 26, PEEP is at 60 with an FiO2 of 90%. Peak airway pressures 33. Static pressures 31 and all of these numbers are comparable to yesterday. The blood gas showed a pH of 7.37 with a pCO2 of 60 and pO2 of 60. She remains on IV cefepime as the cultures Moraxella in her sputum. Her respiratory secretions are scant at this point in time. She is afebrile. She is hemodynamic is stable. She remains on Decadron. Her mother markers have improved specially the LDH. Her CRP was still elevated at 23 however this was also downtrending. She remains on enteral feeding for nutritional support. She is receiving vital AF and she is currently ongoing. Urine output is adequate. Overall fluid balance over the past 24 hours has been +457 mL. No signs of any significant: Overload. Noted the patient has been intubated on 08/05/2021 and her progress has been essentially minimal at this point in time. Unable to do any further weaning from mechanical ventilator due to her poor oxygenation status. Chest x-ray from yesterday was noted. A repeat chest x-ray will be done today. Rest of the blood work essentially stable. She remains on Levemir insulin 30 units in the morning and 10 units in the evening and she is also on a sliding scale insulin coverage. She is also on Lovenox 40 mg subcu for DVT prophylaxis. IV fluids are currently at KVO. Reevaluated today on 08/15/2021, patient remains in the ICU, intubated and mechanically ventilated. She is presently on assist control rate of 26, tidal volume of 325 FiO2 75% PEEP 16. ABG earlier on 90% showed a pO2 of 85 pCO2 of 80 pH of 7.28. Patient is on propofol at 25 g per acute per minute, off Nimbex for now, not requiring any pressors, hemodynamically parra patient is doing well. Patient is on enteral feeding using vital AF 23 mL per hour. Today I suggested adding fentanyl for adequate ventilation and control agitation as propofol alone does not seem to be enough unless we have to increase the dose. Patient had a sedation holiday yesterday, and not much of an improvement noted in the mental status, and the patient would not respond to any stimuli. I suggested today to start increasing the dose of propofol as she seems to be tachypneic and tachycardic, and if not enough, will add fentanyl. But try to avoid Nimbex if possible. Chest x-ray continues to show bilateral interstitial infiltrates. Lines and tubes seem to be in proper position. Labs today WBC count 15.7 hemoglobin 11.2 d-dimer is 1.2, electrodes are normal except for slightly elevated sodium of 145 bicarb is 35 BUN is 69 creatinine 0.93. LDH is 679 C- reactive protein is 26.6 months much of a change in the last few days in both inflammatory markers. Patient remains on the COVID-19 cocktail, she is also on cefepime. Lovenox 40 mg subcu daily. Patient had Moraxella growing out of her sputum on 08/13 and 08/05. Patient was reevaluated today on 08/16/2021, remains in the ICU, intubated and m echanically ventilated. Patient is on assist control rate of 26 tidal volume 325 PEEP of 16 FiO2 75%, ABG showed a pO2 of 73 pCO2 87 pH of 7.24 hence her respiratory rate was increased to 32. Patient remains on propofol at 50 fentanyl at 0.5 mcg/kg/h, she is not requiring Nimbex. Patient had a relatively elevated inflammatory markers including LDH of 766 and C-reactive protein of 18.7. Chest x-ray is not showing much of a change, continues to have bilateral interstitial infiltrates. WBC count showed the 15.7, hemoglobin 11.3 ID d-dimer is 1.12 Reevaluated today on 08/17/2021, patient remains in the ICU, intubated and mechanically ventilated. Patient is scheduled to undergo tracheostomy and PEG tube placement today. She is presently on assist control rate of 3 to tidal volume 325 FiO2 65% and PEEP of 16 she remains on fentanyl at 1 mcg/kg/h propofol at 20 mcg/kg/m patient is on enteral feeding but it is presently on hold for her tracheostomy and PEG tube placement. Chest x-ray continues to show diffuse pneumonic process/ARDS. ABG this morning on 50% showed a pO2 of 52 pCO2 of 72 pH of 7.32, hence FiO2 was increased up to 65%. CBC is relatively unremarkable, sodium is 146 renal profile showed a BUN of 89 creatinine of 1.15. LDH is 509 and C-reactive protein is 8.7. Objective - Vital Signs Vital signs: Vital Signs Temp 99.7 F H 08/17/21 08:00 Pulse 80 08/17/21 11:00 Resp 36 H 08/17/21 11:00 BP 128/63 08/17/21 10:00 Pulse Ox 93 L 08/17/21 11:00 Intake & Output 08/16/21 08/17/21 08/17/21 18:59 06:59 18:59 Intake Total 1119.483 947.15 540 Output Total 460 630 220 Balance 659.483 317.15 320 Weight 98 kg 98 kg Intake: IV 276 376 195 Cefepime 2 gm In Sodium 100 Chloride 0.9% 100 ml @ 25 mls/hr IVPB Q12H [facility] Rx# :[id number] Dextrose 5%-0.45% NaCl 1, 100 000 ml @ 100 mls/hr IV . Q10H [facility] Rx#:[id number] Pressure bag 36 36 15 Sodium Chloride 0.9% 1, 240 240 80 000 ml @ 20 mls/hr IV . Q24H [facility] Rx#:[id number] Intake, IV Titration 235.483 86.15 100 Amount Cefepime 2 gm In Sodium 100 Chloride 0.9% 100 ml @ 25 mls/hr IVPB Q12H [facility] Rx# :[id number] fentaNYL (PF). 1,000 mcg 86.15 100 In Sodium Chloride 0.9% 80 ml @ 0.5 MCG/KG/HR 4. 795 mls/hr IV .[id number] [facility] Rx#:[id number] propofoL 1,000 mg In 135.483 Empty Bag 1 bag @ Titrate IV .Q0M [facility] Rx#: [id number] Tube Feeding 418 395 155 Other 190 90 90 Output: Urine 460 630 220 Other: Voiding Method Indwelling Catheter Indwelling Catheter Indwelling Catheter ABP, PAP, CO, CI - Last Documented Arterial Blood Pressure 150/54 - Exam Physical Exam: Revealed a 76-year-old female sedated, on propofol, intubated, in no distress. Head: Atraumatic, normocephalic. Endotracheal tube and orogastric tube are intact. HEENT:[Neck is supple.] [No neck masses.] [No thyromegaly.] [No JVD.] Chest: [Zenaida at the bases no rhonchi and no wheezes. Cardiac Exam: Distant S1 and S2, no S3 gallop. Abdomen: [Obese, Soft, nontender, no megaly, no rebound, no guarding, normal bowel sounds.] Extremities: [No clubbing, no edema, no cyanosis.] Neurological Exam: Unable to assess. Patient is sedated, and she is scheduled to undergo tracheostomy and PEG tube placement today. Psychiatric: Could not assess. Skin: No rashes. - Labs CBC & Chem 7: 08/17/21 04:38 08/17/21 04:38 Labs: Abnormal Lab Results - Last 24 Hours (Table) 08/16/21 08/16/21 08/17/21 Range/Units 12:53 18:30 00:04 WBC (3.8-10.6) k/uL RBC (3.80-5.40) m/uL Hgb (11.4-16.0) gm/dL MCV (80.0-100.0) fL MCHC (31.0-37.0) g/dL Neutrophils # (1.3-7.7) k/uL Lymphocytes # (1.0-4.8) k/uL D-Dimer (<0.60) mg/L FEU ABG pH (7.35-7.45) ABG pCO2 (35-45) mmHg ABG pO2 (83-108) mmHg ABG HCO3 (21-25) mmol/L ABG Total CO2 (19-24) mmol/L ABG O2 Saturation (94-97) % Sodium (137-145) mmol/L Carbon Dioxide (22-30) mmol/L BUN (7-17) mg/dL Creatinine (0.52-1.04) mg/dL Glucose (74-99) mg/dL POC Glucose (mg/dL) 196 H 183 H 159 H (75-99) mg/dL C-Reactive Protein (<1.0) mg/dL Total Protein (6.3-8.2) g/dL Albumin (3.5-5.0) g/dL 08/17/21 08/17/21 08/17/21 Range/Units 04:38 04:38 04:38 WBC 13.5 H (3.8-10.6) k/uL RBC 3.51 L (3.80-5.40) m/uL Hgb 10.6 L (11.4-16.0) gm/dL MCV 100.5 H (80.0-100.0) fL MCHC 30.0 L (31.0-37.0) g/dL Neutrophils # 12.1 H (1.3-7.7) k/uL Lymphocytes # 0.5 L (1.0-4.8) k/uL D-Dimer 0.94 H (<0.60) mg/L FEU ABG pH (7.35-7.45) ABG pCO2 (35-45) mmHg ABG pO2 (83-108) mmHg ABG HCO3 (21-25) mmol/L ABG Total CO2 (19-24) mmol/L ABG O2 Saturation (94-97) % Sodium 146 H (137-145) mmol/L Carbon Dioxide 37 H (22-30) mmol/L BUN 89 H (7-17) mg/dL Creatinine 1.15 H (0.52-1.04) mg/dL Glucose 180 H (74-99) mg/dL POC Glucose (mg/dL) (75-99) mg/dL C-Reactive Protein 8.7 H (<1.0) mg/dL Total Protein 5.8 L (6.3-8.2) g/dL Albumin 2.6 L (3.5-5.0) g/dL 08/17/21 08/17/21 Range/Units 05:43 06:33 WBC (3.8-10.6) k/uL RBC (3.80-5.40) m/uL Hgb (11.4-16.0) gm/dL MCV (80.0-100.0) fL MCHC (31.0-37.0) g/dL Neutrophils # (1.3-7.7) k/uL Lymphocytes # (1.0-4.8) k/uL D-Dimer (<0.60) mg/L FEU ABG pH 7.32 L (7.35-7.45) ABG pCO2 72 H* (35-45) mmHg ABG pO2 52 L* (83-108) mmHg ABG HCO3 37 H (21-25) mmol/L ABG Total CO2 39 H (19-24) mmol/L ABG O2 Saturation 87.2 L (94-97) % Sodium (137-145) mmol/L Carbon Dioxide (22-30) mmol/L BUN (7-17) mg/dL Creatinine (0.52-1.04) mg/dL Glucose (74-99) mg/dL POC Glucose (mg/dL) 183 H (75-99) mg/dL C-Reactive Protein (<1.0) mg/dL Total Protein (6.3-8.2) g/dL Albumin (3.5-5.0) g/dL Assessment and Plan Assessment: Impression: Acute hypoxic respiratory failure secondary to COVID-19 pneumonia, patient was on baricitinib and this was discontinued because of the Moraxella infection noted. Patient was intubated on 08/05 with minimal improvement since intubation. Possible superimposed Moraxella catarrhalis pneumonia based on positive sputum cultures and the patient remains on cefepime. ARDS secondary to COVID-19 pneumonia Elevated inflammatory markers second to COVID-19 pneumonia Benign essential hypertension Suspect metabolic encephalopathy secondary to COVID-19 pneumonia Dyslipidemia Type 2 diabetes History of hypothyroidism Recommendations: Continue ventilatory support I had to increase her FiO2 up to 65% otherwise no changes made. Proceed with tracheostomy and PEG tube placement today. Continue Decadron. Keep patient off baricitinib Continue IV cefepime for her presumed Moraxella catarrhalis pneumonia, coarse will be renewed. Patient remains critically ill. Critical care time is over 30 minutes. Time with Patient: Greater than 30
[2021-08-17 12:03] LABS: Glucose,Whole Blood 176 mg/dL (75-99)
--- NOTE | 2021-08-17 13:32 | P.PN ---
Subjective Progress Note Date: 08/17/21 This is a 76-year-old female who presented to emergency room with cough, congestion, dyspnea and weakness and fatigue over several weeks. Approximately week ago patient took a home Covid test which indicated that she was positive. She has not received Covid vaccine or treatment for the positive Covid test. When symptoms worsened she decided to present to the ER for evaluation and treatment. She was initially placed on BiPAP in the intensive care unit and subsequently been intubated. She is currently paralyzed with cisatracurium, sedated with propofol and utilizing Toradol IV push for pain management. Currently mechanically ventilated on 80% FiO2. Patient is afebrile 96.9, respiratory rate of 26, blood pressure is stable at 109/51, maintain oxygen saturation of 90% and entitle CO2 of 28. Most recent set of vital signs WC count of 15.5, hematocrit of 35.6, hemoglobin 12.0, platelet count 119. Chemistry panel reveals a sodium 138, potassium 3.8, BUN of 19, creatinine 0.72, GFR 83, AST of 99, ELT 106, alk phos 131, LDH 847. TSH of 8.37. T4 0.5, pro- calcitonin 0.34 08/08/2021 remains mechanical ventilator-dependent, FiO2 decreased to 65%, PEEP remains at 20. Continues on Nimbex and diprovan drips. Chest x-ray reported patchy bilateral infiltrate with diffuse interstitial pattern, tiny right-sided pleural effusion, received Lasix. Maintained on Rocephin (Moraxella catarrhalis in the sputum) , Covid cocktail with Baricitinib discontinued. Blood sugars elevated. Afebrile, WBC 13.3. Pro-calcitonin 0.34. 08/09/2021 continues on FiO2 65% with PEEP of 20, Nimbex and diprovan drips. Chest x-ray reporting persistent patchy bilateral infiltrate with diffuse interstitial pattern. Received additional Lasix today Blood sugars elevated, improving, A1c 8.4. Afebrile, WBC 14.3. D-dimer 0.77, ferritin increased to 2512, LDH decreased to 606, CRP increased to 21.2. LFTs decreasing with the exception of alkaline phosphatase, increased to 171. ProBNP 453. Receiving tube feeds to call, tolerating well with minimal to no residuals, stooling. 08/10/2021 remains vent dependent, FiO2 60%/+18 of PEEP. Maintained on Nimbex and diprovan drips. Chest x-ray noted, unchanged. Currently afebrile, T-max 99.1, WBC trending down, 12.7. BUN 24, and 0.74. Repeat pro-calcitonin 0.31. Additional Levemir added to med regimen yesterday, Blood sugars controlled. Received Lasix IV push yesterday again, diuresed well with 24-hour I&O reflecting a negative fluid balance. Sodium within normal limits, 142. 08/11/2021 yesterday patient of placed on Nimbex holiday, during the night unable to tolerate became asynchronous with the ventNimbex resumed. Diprovan drip continues. Maintained on FiO2 65% with PEEP decreased to 17. Maintained on Rocephin ,Covid cocktail. Chest x-ray reporting stable diffuse bilateral infiltrate. Inflammatory markers decreasing.Tolerating tube feeds minimal to no residual. Levemir increased yesterday with blood sugars controlled. Afebrile. 08/12/2021 patient was given another paralytic holiday yesterday and continues off of Nimbex. During the night, difficulty maintaining O2 sats, cuff leak discovered, required higher FiO2. Maintained on diprovan. Currently FIO2 90%, PEEP of 16. Chest x-ray reporting bilateral moderate pulmonary edema, possibly worsening, antibiotics adjusted, now on cefepime. Maintained on Covid cocktail. Blood sugars controlled. Renal function stable. 08/15/2021 remains vent dependent, FiO2 75%/+16 of PEEP. Maintained on diprovan and fentanyl drips. Currently off paralytics. Sedation holiday attempted yesterday with minimal improvement of mental status, no response to any stimuli reported. Chest x-ray reporting persistent bilateral airspace disease. Continues on cefepime. Tolerating tube feeds at goal, with minimal to no residuals, blood sugars controlled. Inflammatory markers mildly increased. 08/16/2021 remains vent dependent, FiO2 65%/+16 of PEEP. Chest x-ray reporting diffuse interstitial and alveolar infiltrates. Maintained on diprovan and fentanyl drips. [employer] currently discussing treatment of trach and peg with family. T-max 99.1, WBC 15.7. D-dimer, CRP decreased, LDH increased. 08/17/2021 vent dependent, FiO2 50%/+16 of PEEP. Chest x-ray reporting diffuse interstitial and alveolar infiltrates. Tube feeds and lovenox on hold. Maintained on IV fluid hydration D5/45. Scheduled for trach and peg today. T-max 99.7, WBC 13.5. Creatinine increased up to 1.15. Objective - Vital Signs Vital signs: Vital Signs Temp 99.7 F H 08/17/21 08:00 Pulse 80 08/17/21 09:00 Resp 37 H 08/17/21 09:00 BP 128/63 08/17/21 09:00 Pulse Ox 88 L 08/17/21 09:00 Intake & Output 08/16/21 08/17/21 08/17/21 18:59 06:59 18:59 Intake Total 1119.483 947.15 352 Output Total 460 630 160 Balance 659.483 317.15 192 Weight 98 kg 98 kg Intake: IV 276 376 69 Cefepime 2 gm In Sodium 100 Chloride 0.9% 100 ml @ 25 mls/hr IVPB Q12H [facility] Rx# :[id number] Pressure bag 36 36 9 Sodium Chloride 0.9% 1, 240 240 60 000 ml @ 20 mls/hr IV . Q24H [facility] Rx#:[id number] Intake, IV Titration 235.483 86.15 100 Amount Cefepime 2 gm In Sodium 100 Chloride 0.9% 100 ml @ 25 mls/hr IVPB Q12H [facility] Rx# :[id number] fentaNYL (PF). 1,000 mcg 86.15 100 In Sodium Chloride 0.9% 80 ml @ 0.5 MCG/KG/HR 4. 795 mls/hr IV .[id number] [facility] Rx#:[id number] propofoL 1,000 mg In 135.483 Empty Bag 1 bag @ Titrate IV .Q0M [facility] Rx#: [id number] Tube Feeding 418 395 93 Other 190 90 90 Output: Urine 460 630 160 Other: Voiding Method Indwelling Catheter Indwelling Catheter Indwelling Catheter ABP, PAP, CO, CI - Last Documented Arterial Blood Pressure 150/51 - Exam - Exam: limited Exam r/t to COVID GENERAL: intubated, sedated, NAD Lungs: Mechanically ventilated, bilateral bases diminished Heart: Regular rate and rhythm per night monitor Abdomen: Soft, nondistended, positive bowel sounds Extremities: No edema Neurological: Sedated - Labs CBC & Chem 7: 08/17/21 04:38 08/17/21 04:38 Labs: Abnormal Lab Results - Last 24 Hours (Table) 08/16/21 08/16/21 08/17/21 Range/Units 12:53 18:30 00:04 WBC (3.8-10.6) k/uL RBC (3.80-5.40) m/uL Hgb (11.4-16.0) gm/dL MCV (80.0-100.0) fL MCHC (31.0-37.0) g/dL Neutrophils # (1.3-7.7) k/uL Lymphocytes # (1.0-4.8) k/uL D-Dimer (<0.60) mg/L FEU ABG pH (7.35-7.45) ABG pCO2 (35-45) mmHg ABG pO2 (83-108) mmHg ABG HCO3 (21-25) mmol/L ABG Total CO2 (19-24) mmol/L ABG O2 Saturation (94-97) % Sodium (137-145) mmol/L Carbon Dioxide (22-30) mmol/L BUN (7-17) mg/dL Creatinine (0.52-1.04) mg/dL Glucose (74-99) mg/dL POC Glucose (mg/dL) 196 H 183 H 159 H (75-99) mg/dL C-Reactive Protein (<1.0) mg/dL Total Protein (6.3-8.2) g/dL Albumin (3.5-5.0) g/dL 08/17/21 08/17/21 08/17/21 Range/Units 04:38 04:38 04:38 WBC 13.5 H (3.8-10.6) k/uL RBC 3.51 L (3.80-5.40) m/uL Hgb 10.6 L (11.4-16.0) gm/dL MCV 100.5 H (80.0-100.0) fL MCHC 30.0 L (31.0-37.0) g/dL Neutrophils # 12.1 H (1.3-7.7) k/uL Lymphocytes # 0.5 L (1.0-4.8) k/uL D-Dimer 0.94 H (<0.60) mg/L FEU ABG pH (7.35-7.45) ABG pCO2 (35-45) mmHg ABG pO2 (83-108) mmHg ABG HCO3 (21-25) mmol/L ABG Total CO2 (19-24) mmol/L ABG O2 Saturation (94-97) % Sodium 146 H (137-145) mmol/L Carbon Dioxide 37 H (22-30) mmol/L BUN 89 H (7-17) mg/dL Creatinine 1.15 H (0.52-1.04) mg/dL Glucose 180 H (74-99) mg/dL POC Glucose (mg/dL) (75-99) mg/dL C-Reactive Protein 8.7 H (<1.0) mg/dL Total Protein 5.8 L (6.3-8.2) g/dL Albumin 2.6 L (3.5-5.0) g/dL 08/17/21 08/17/21 Range/Units 05:43 06:33 WBC (3.8-10.6) k/uL RBC (3.80-5.40) m/uL Hgb (11.4-16.0) gm/dL MCV (80.0-100.0) fL MCHC (31.0-37.0) g/dL Neutrophils # (1.3-7.7) k/uL Lymphocytes # (1.0-4.8) k/uL D-Dimer (<0.60) mg/L FEU ABG pH 7.32 L (7.35-7.45) ABG pCO2 72 H* (35-45) mmHg ABG pO2 52 L* (83-108) mmHg ABG HCO3 37 H (21-25) mmol/L ABG Total CO2 39 H (19-24) mmol/L ABG O2 Saturation 87.2 L (94-97) % Sodium (137-145) mmol/L Carbon Dioxide (22-30) mmol/L BUN (7-17) mg/dL Creatinine (0.52-1.04) mg/dL Glucose (74-99) mg/dL POC Glucose (mg/dL) 183 H (75-99) mg/dL C-Reactive Protein (<1.0) mg/dL Total Protein (6.3-8.2) g/dL Albumin (3.5-5.0) g/dL Assessment and Plan Assessment: Acute Covid pneumonia, sputum culture reporting Moraxella Catarrhalis Acute hypoxic respiratory failure secondary to the above, mechanical ventilator dependent ARDS secondary to acute COVID-19 pneumonia Diabetes mellitus type 2, hyperglycemic, hemoglobin A1c 8.4 Hypothyroidism Essential hypertension Hyperlipidemia Plan: Continue on current medication regime ,monitoring and symptomatic treatment. Covid cocktail. Scheduled for trach and PEG today. ICU management as per pen ruler operator. Prognosis poor related to multiple complex medical issues. The impression and plan of care has been dictated as directed. : I performed a history and examination of this patient, discussed the same with the dictator. I agree with the dictator's note ,documented as a scribe. Any additional findings or plans will be noted.
--- NOTE | 2021-08-17 15:37 | P.OP ---
Date of Procedure: 08/17/21 Preoperative Diagnosis: Malnutrition Postoperative Diagnosis: Malnutrition Procedure(s) Performed: EGD Anesthesia: MAC Surgeon: Marcel Arechiga Pathology: none sent Condition: stable Disposition: PACU Description of Procedure: The patient was positioned appropriately on her bed. The gastro-/oropharynx. There is significant swelling of the hypopharynx. The orogastric tube was traced into the opening for the esophagus. The scope could not E placed into the esophagus due to significant swelling of the hypopharynx. This point the OG tube was removed. Several times made to maneuver the gastroscope into the esophagus was impossible due to the swelling in the patient's hypopharynx. At this point the gastric scope was withdrawn for patient. Patient will need to wait until her tracheostomy performed to see if we can place the gastroscope into the esophagus without the endotracheal tube position in the patient's mouth..
[2021-08-17] MEDS: CLEVIDIPINE BUTYRATE 25 MG in EMPTY BAG 1 BAG IV SCH (16:30)
[2021-08-17 17:55] LABS: Glucose,Whole Blood 191 mg/dL (75-99)
--- NOTE | 2021-08-17 18:33 | XR ---
EXAMINATION TYPE: XR chest 1V portable DATE OF EXAM: 08/17/2021 COMPARISON: Today HISTORY: Respiratory failure TECHNIQUE: Single view FINDINGS: There is endotracheal tube 3.4 cm from the kay. There is left subclavian catheter with t ip in the lower superior vena cava. There is nasogastric tube with the tip well into the stomach. The re is pulmonary interstitial and airspace edema. No pneumothorax. IMPRESSION: Pulmonary edema without change compared to exam this morning.
[2021-08-18 01:10] LABS: Glucose,Whole Blood 88 mg/dL (75-99)
[2021-08-18] MEDS: INSULIN ASPART (NovoLOG) 100 UNIT/ML VIAL SQ SCH ×4 (01:13→17:57)
[2021-08-18] MEDS: ALBUTEROL HFA INHALER INHALATION SCH ×5 (03:44→20:12)
[2021-08-18 04:51] LABS: Basophils # (A) 0.1 k/uL (0-0.2); Basophils % (A) 1 %; Eosinophils # (A) 0.1 k/uL (0-0.7); Eosinophils % (A) 1 %; HGB 10.1 gm/dL (11.4-16.0); Hypochromasia Marked; Lymphocytes # (A) 0.8 k/uL (1.0-4.8); Lymphocytes % (A) 6 %; MCH 30.6 pg (25.0-35.0); MCHC 30.7 g/dL (31.0-37.0); MCV 99.7 fL (80.0-100.0); Mean Platelet Volume 8.6; Monocytes # (A) 0.6 k/uL (0-1.0); Monocytes % (A) 4 %; Neutrophils % (A) 87 %; Platelet Count 183 k/uL (150-450); RBC 3.31 m/uL (3.80-5.40); RDW 13.6 % (11.5-15.5); WBC 12.6 k/uL (3.8-10.6)
[2021-08-18 05:07] LABS: Albumin 2.4 g/dL (3.5-5.0); C Reactive Protein 5.9 mg/dL (<1.0); Calcium 9.2 mg/dL (8.4-10.2); Potassium 4.3 mmol/L (3.5-5.1); Total Bilirubin 0.3 mg/dL (0.2-1.3); Total Protein 5.6 g/dL (6.3-8.2)
[2021-08-18 05:12] LABS: ABG HCO3 36 mmol/L (21-25); ABG Oxygen Saturation 91.1 % (94-97); ABG PCO2 70 mmHg (35-45); ABG PH 7.32 (7.35-7.45); ABG PO2 60 mmHg (83-108); ABG TCO2 38 mmol/L (19-24); Allen Test Performed? Yes
[2021-08-18] MEDS: LEVOTHYROXINE 100 MCG TAB OG-TUBE SCH (06:44)
[2021-08-18] MEDS: INSULIN DETEMIR (LEVEMIR) 100 UNIT/ML SYR SQ SCH ×2 (06:44→21:14)
[2021-08-18] MEDS: fentaNYL (PF). 1,000 MCG in SODIUM CHLORIDE 0.9% 80 ML IV SCH ×2 (07:55→18:17)
[2021-08-18] MEDS: CHLORHEXIDINE GLUCONATE 15 ML CUP MUCOUS MEM SCH ×2 (08:24→21:13)
[2021-08-18] MEDS: PANTOPRAZOLE 40 MG/10 ML VIAL IVP SCH (08:24)
[2021-08-18] MEDS: ZINC SULFATE 220 MG CAP PO SCH (08:25)
[2021-08-18] MEDS: CHOLECALCIFEROL 125 MCG (5000 IU) TABLET PO SCH (08:25)
[2021-08-18] MEDS: ASCORBIC ACID 500 MG TAB PO SCH (08:25)
[2021-08-18] MEDS: DEXAMETHASONE SOD PHOSPHATE 10 MG/ML 1 ML VIAL IVP SCH (08:25)
[2021-08-18] MEDS: CEFEPIME 2 GM in SODIUM CHLORIDE 0.9% 100 ML IVPB SCH ×2 (08:25→21:13)
[2021-08-18] MEDS: ENOXAPARIN 40 MG/0.4 ML SYRINGE SQ SCH (08:25)
[2021-08-18] MEDS: DEXTROSE 5%-0.45% NACL 1,000 ML IV SCH ×2 (09:12→18:00)
[2021-08-18 11:37] LABS: Glucose,Whole Blood 152 mg/dL (75-99)
--- NOTE | 2021-08-18 12:23 | P.PN ---
Subjective Progress Note Date: 08/18/21 Principal diagnosis: Acute hypoxic resp. failure second to COVID-19 pneumonia 08/14/2021, the patient's condition remains essentially unchanged. She has post COVID 19 related pneumonia with secondary ARDS and her oxygenation has remained unchanged and her ventilator settings have been essentially remained stable over the past several days. This morning, the patient remains sedated and she is currently on propofol running at a rate of 45 mcg/kg per minute. The patient is not paralyzed at this point in time. We should be able to cut down her sedation to a lower level at this point. Meanwhile, we are still allowed permissive hypercapnia. She is on low tidal volume mechanical ventilation with a tidal volume of 325, rate of 26, PEEP is at 60 with an FiO2 of 90%. Peak airway pressures 33. Static pressures 31 and all of these numbers are comparable to yesterday. The blood gas showed a pH of 7.37 with a pCO2 of 60 and pO2 of 60. She remains on IV cefepime as the cultures Moraxella in her sputum. Her respiratory secretions are scant at this point in time. She is afebrile. She is hemodynamic is stable. She remains on Decadron. Her mother markers have improved specially the LDH. Her CRP was still elevated at 23 however this was also downtrending. She remains on enteral feeding for nutritional support. She is receiving vital AF and she is currently ongoing. Urine output is adequate. Overall fluid balance over the past 24 hours has been +457 mL. No signs of any significant: Overload. Noted the patient has been intubated on 08/05/2021 and her progress has been essentially minimal at this point in time. Unable to do any further weaning from mechanical ventilator due to her poor oxygenation status. Chest x-ray from yesterday was noted. A repeat chest x-ray will be done today. Rest of the blood work essentially stable. She remains on Levemir insulin 30 units in the morning and 10 units in the evening and she is also on a sliding scale insulin coverage. She is also on Lovenox 40 mg subcu for DVT prophylaxis. IV fluids are currently at KVO. Reevaluated today on 08/15/2021, patient remains in the ICU, intubated and mechanically ventilated. She is presently on assist control rate of 26, tidal volume of 325 FiO2 75% PEEP 16. ABG earlier on 90% showed a pO2 of 85 pCO2 of 80 pH of 7.28. Patient is on propofol at 25 g per acute per minute, off Nimbex for now, not requiring any pressors, hemodynamically parra patient is doing well. Patient is on enteral feeding using vital AF 23 mL per hour. Today I suggested adding fentanyl for adequate ventilation and control agitation as propofol alone does not seem to be enough unless we have to increase the dose. Patient had a sedation holiday yesterday, and not much of an improvement noted in the mental status, and the patient would not respond to any stimuli. I suggested today to start increasing the dose of propofol as she seems to be tachypneic and tachycardic, and if not enough, will add fentanyl. But try to avoid Nimbex if possible. Chest x-ray continues to show bilateral interstitial infiltrates. Lines and tubes seem to be in proper position. Labs today WBC count 15.7 hemoglobin 11.2 d-dimer is 1.2, electrodes are normal except for slightly elevated sodium of 145 bicarb is 35 BUN is 69 creatinine 0.93. LDH is 679 C- reactive protein is 26.6 months much of a change in the last few days in both inflammatory markers. Patient remains on the COVID-19 cocktail, she is also on cefepime. Lovenox 40 mg subcu daily. Patient had Moraxella growing out of her sputum on 08/13 and 08/05. Patient was reevaluated today on 08/16/2021, remains in the ICU, intubated and m echanically ventilated. Patient is on assist control rate of 26 tidal volume 325 PEEP of 16 FiO2 75%, ABG showed a pO2 of 73 pCO2 87 pH of 7.24 hence her respiratory rate was increased to 32. Patient remains on propofol at 50 fentanyl at 0.5 mcg/kg/h, she is not requiring Nimbex. Patient had a relatively elevated inflammatory markers including LDH of 766 and C-reactive protein of 18.7. Chest x-ray is not showing much of a change, continues to have bilateral interstitial infiltrates. WBC count showed the 15.7, hemoglobin 11.3 ID d-dimer is 1.12 Reevaluated today on 08/17/2021, patient remains in the ICU, intubated and mechanically ventilated. Patient is scheduled to undergo tracheostomy and PEG tube placement today. She is presently on assist control rate of 3 to tidal volume 325 FiO2 65% and PEEP of 16 she remains on fentanyl at 1 mcg/kg/h propofol at 20 mcg/kg/m patient is on enteral feeding but it is presently on hold for her tracheostomy and PEG tube placement. Chest x-ray continues to show diffuse pneumonic process/ARDS. ABG this morning on 50% showed a pO2 of 52 pCO2 of 72 pH of 7.32, hence FiO2 was increased up to 65%. CBC is relatively unremarkable, sodium is 146 renal profile showed a BUN of 89 creatinine of 1.15. LDH is 509 and C-reactive protein is 8.7. Reevaluated today on 08/18/2021, patient remains in the ICU, intubated and mechanically ventilated. Patient is on assist control rate of 3 to tidal volume 325 FiO2 70% PEEP of 16. ABG is marginal with a pO2 of 60 pCO2 of 70 pH of 7.32, hence no changes were made on her ventilator settings. Patient remains on a fall at 50 mcg/kg/m fentanyl 1 mcg/kg/h she is on D5 4500 mL per hour. CBC is relatively unremarkable hemoglobin is 10.1 electrolytes and renal profile are normal. Patient was seen by general surgery yesterday, and could not pass a scope to be able to perform at PEG tube placement. Hence the patient is scheduled today for tracheostomy, maybe PEG tube placement could be done today in the operating room. At any rate patient is not ready for any weaning, and apparently the family had no problem proceeding with tracheostomy and PEG tube placement. Her overall clinical status remains marginal at best. Objective - Vital Signs Vital signs: Vital Signs Temp 97.6 F 08/18/21 12:00 Pulse 70 08/18/21 12:00 Resp 32 H 08/18/21 12:00 BP 128/63 08/18/21 08:00 Pulse Ox 96 08/18/21 12:00 Intake & Output 08/17/21 08/18/21 08/18/21 18:59 06:59 18:59 Intake Total 0991.736 5859 748 Output Total 450 505 360 Balance 757.000 931 388 Weight 98 kg 92.7 kg Intake: IV 916 1236 618 Dextrose 5%-0.45% NaCl 1, 800 1200 600 000 ml @ 100 mls/hr IV . Q10H [facility] Rx#:[id number] Pressure bag 36 36 18 Sodium Chloride 0.9% 1, 80 000 ml @ 20 mls/hr IV . Q24H [facility] Rx#:[id number] Intake, IV Titration 200.000 200 100 Amount fentaNYL (PF). 1,000 mcg 100 100 100 In Sodium Chloride 0.9% 80 ml @ 0.5 MCG/KG/HR 4. 795 mls/hr IV .[id number] [facility] Rx#:[id number] propofoL 1,000 mg In 100.000 100 Empty Bag 1 bag @ Titrate IV .Q0M [facility] Rx#: [id number] Tube Feeding 31 Other 60 30 Output: Urine 450 505 360 Other: Voiding Method Indwelling Catheter Indwelling Catheter Indwelling Catheter ABP, PAP, CO, CI - Last Documented Arterial Blood Pressure 119/44 - Exam Physical Exam: Revealed a 76-year-old female sedated, on propofol,, and on fentanyl. intubated, in no distress. Head: Atraumatic, normocephalic. Endotracheal tube and orogastric tube are intact. HEENT:[Neck is supple.] [No neck masses.] [No thyromegaly.] [No JVD.] Chest: [Zenaida at the bases no rhonchi and no wheezes. Cardiac Exam: Distant S1 and S2, no S3 gallop. Abdomen: [Obese, Soft, nontender, no megaly, no rebound, no guarding, normal bowel sounds.] Extremities: [No clubbing, no edema, no cyanosis.] Neurological Exam: Unable to assess. Mostly because of sedation. Psychiatric: Could not assess. Skin: No rashes. - Labs CBC & Chem 7: 08/18/21 04:45 08/18/21 04:45 Labs: Abnormal Lab Results - Last 24 Hours (Table) 08/17/21 08/18/21 08/18/21 Range/Units 17:44 04:45 04:45 WBC 12.6 H (3.8-10.6) k/uL RBC 3.31 L (3.80-5.40) m/uL Hgb 10.1 L (11.4-16.0) gm/dL Hct 33.0 L (34.0-46.0) % MCHC 30.7 L (31.0-37.0) g/dL Neutrophils # 11.0 H (1.3-7.7) k/uL Lymphocytes # 0.8 L (1.0-4.8) k/uL D-Dimer (<0.60) mg/L FEU ABG pH (7.35-7.45) ABG pCO2 (35-45) mmHg ABG pO2 (83-108) mmHg ABG HCO3 (21-25) mmol/L ABG Total CO2 (19-24) mmol/L ABG O2 Saturation (94-97) % Sodium 146 H (137-145) mmol/L Chloride 109 H (98-107) mmol/L Carbon Dioxide 36 H (22-30) mmol/L BUN 82 H (7-17) mg/dL Glucose 110 H (74-99) mg/dL POC Glucose (mg/dL) 191 H (75-99) mg/dL C-Reactive Protein 5.9 H (<1.0) mg/dL Total Protein 5.6 L (6.3-8.2) g/dL Albumin 2.4 L (3.5-5.0) g/dL 08/18/21 08/18/21 08/18/21 Range/Units 05:00 05:08 11:26 WBC (3.8-10.6) k/uL RBC (3.80-5.40) m/uL Hgb (11.4-16.0) gm/dL Hct (34.0-46.0) % MCHC (31.0-37.0) g/dL Neutrophils # (1.3-7.7) k/uL Lymphocytes # (1.0-4.8) k/uL D-Dimer 1.44 H (<0.60) mg/L FEU ABG pH 7.32 L (7.35-7.45) ABG pCO2 70 H (35-45) mmHg ABG pO2 60 L (83-108) mmHg ABG HCO3 36 H (21-25) mmol/L ABG Total CO2 38 H (19-24) mmol/L ABG O2 Saturation 91.1 L (94-97) % Sodium (137-145) mmol/L Chloride (98-107) mmol/L Carbon Dioxide (22-30) mmol/L BUN (7-17) mg/dL Glucose (74-99) mg/dL POC Glucose (mg/dL) 152 H (75-99) mg/dL C-Reactive Protein (<1.0) mg/dL Total Protein (6.3-8.2) g/dL Albumin (3.5-5.0) g/dL Assessment and Plan Assessment: Impression: Acute hypoxic respiratory failure secondary to COVID-19 pneumonia, patient was on baricitinib and this was discontinued because of the Moraxella infection noted. Patient was intubated on 08/05 with minimal improvement since intubation. Possible superimposed Moraxella catarrhalis pneumonia based on positive sputum cultures and the patient remains on cefepime. ARDS secondary to COVID-19 pneumonia Elevated inflammatory markers second to COVID-19 pneumonia Benign essential hypertension Suspect metabolic encephalopathy secondary to COVID-19 pneumonia Dyslipidemia Type 2 diabetes History of hypothyroidism Recommendations: Proceed with tracheostomy and PEG tube placement possibly today. Continue ventilatory support , ABG is marginal at best. Continue COVID-19 cocktail Continue Decadron. Keep patient off baricitinib Continue IV cefepime for her presumed Moraxella catarrhalis pneumonia, coarse will be renewed. Patient remains critically ill. Critical care time is over 30 minutes. Time with Patient: Greater than 30
--- NOTE | 2021-08-18 14:49 | P.PN ---
Subjective Progress Note Date: 08/18/21 This is a 76-year-old female who presented to emergency room with cough, congestion, dyspnea and weakness and fatigue over several weeks. Approximately week ago patient took a home Covid test which indicated that she was positive. She has not received Covid vaccine or treatment for the positive Covid test. When symptoms worsened she decided to present to the ER for evaluation and treatment. She was initially placed on BiPAP in the intensive care unit and subsequently been intubated. She is currently paralyzed with cisatracurium, sedated with propofol and utilizing Toradol IV push for pain management. Currently mechanically ventilated on 80% FiO2. Patient is afebrile 96.9, respiratory rate of 26, blood pressure is stable at 109/51, maintain oxygen saturation of 90% and entitle CO2 of 28. Most recent set of vital signs WC count of 15.5, hematocrit of 35.6, hemoglobin 12.0, platelet count 119. Chemistry panel reveals a sodium 138, potassium 3.8, BUN of 19, creatinine 0.72, GFR 83, AST of 99, ELT 106, alk phos 131, LDH 847. TSH of 8.37. T4 0.5, pro- calcitonin 0.34 08/08/2021 remains mechanical ventilator-dependent, FiO2 decreased to 65%, PEEP remains at 20. Continues on Nimbex and diprovan drips. Chest x-ray reported patchy bilateral infiltrate with diffuse interstitial pattern, tiny right-sided pleural effusion, received Lasix. Maintained on Rocephin (Moraxella catarrhalis in the sputum) , Covid cocktail with Baricitinib discontinued. Blood sugars elevated. Afebrile, WBC 13.3. Pro-calcitonin 0.34. 08/09/2021 continues on FiO2 65% with PEEP of 20, Nimbex and diprovan drips. Chest x-ray reporting persistent patchy bilateral infiltrate with diffuse interstitial pattern. Received additional Lasix today Blood sugars elevated, improving, A1c 8.4. Afebrile, WBC 14.3. D-dimer 0.77, ferritin increased to 2512, LDH decreased to 606, CRP increased to 21.2. LFTs decreasing with the exception of alkaline phosphatase, increased to 171. ProBNP 453. Receiving tube feeds to call, tolerating well with minimal to no residuals, stooling. 08/10/2021 remains vent dependent, FiO2 60%/+18 of PEEP. Maintained on Nimbex and diprovan drips. Chest x-ray noted, unchanged. Currently afebrile, T-max 99.1, WBC trending down, 12.7. BUN 24, and 0.74. Repeat pro-calcitonin 0.31. Additional Levemir added to med regimen yesterday, Blood sugars controlled. Received Lasix IV push yesterday again, diuresed well with 24-hour I&O reflecting a negative fluid balance. Sodium within normal limits, 142. 08/11/2021 yesterday patient of placed on Nimbex holiday, during the night unable to tolerate became asynchronous with the ventNimbex resumed. Diprovan drip continues. Maintained on FiO2 65% with PEEP decreased to 17. Maintained on Rocephin ,Covid cocktail. Chest x-ray reporting stable diffuse bilateral infiltrate. Inflammatory markers decreasing.Tolerating tube feeds minimal to no residual. Levemir increased yesterday with blood sugars controlled. Afebrile. 08/12/2021 patient was given another paralytic holiday yesterday and continues off of Nimbex. During the night, difficulty maintaining O2 sats, cuff leak discovered, required higher FiO2. Maintained on diprovan. Currently FIO2 90%, PEEP of 16. Chest x-ray reporting bilateral moderate pulmonary edema, possibly worsening, antibiotics adjusted, now on cefepime. Maintained on Covid cocktail. Blood sugars controlled. Renal function stable. 08/15/2021 remains vent dependent, FiO2 75%/+16 of PEEP. Maintained on diprovan and fentanyl drips. Currently off paralytics. Sedation holiday attempted yesterday with minimal improvement of mental status, no response to any stimuli reported. Chest x-ray reporting persistent bilateral airspace disease. Continues on cefepime. Tolerating tube feeds at goal, with minimal to no residuals, blood sugars controlled. Inflammatory markers mildly increased. 08/16/2021 remains vent dependent, FiO2 65%/+16 of PEEP. Chest x-ray reporting diffuse interstitial and alveolar infiltrates. Maintained on diprovan and fentanyl drips. [employer] Worker currently discussing treatment of trach and peg with family. T-max 99.1, WBC 15.7. D-dimer, CRP decreased, LDH increased. 08/17/2021 vent dependent, FiO2 50%/+16 of PEEP. Chest x-ray reporting diffuse interstitial and alveolar infiltrates. Tube feeds and lovenox on hold. Maintained on IV fluid hydration D5/45. Scheduled for trach and peg today. T-max 99.7, WBC 13.5. Creatinine increased up to 1.15. 08/18/2021 Remains vent dependent, FiO2 70+16 of PEEP.Maintained on diprovan, fentanyl. PEG tube attempted yesterday, surgeon unable to pass scope. Patient is scheduled for tracheostomy and potential PEG tube placement today. Objective - Vital Signs Vital signs: Vital Signs Temp 97.6 F 08/18/21 12:00 Pulse 66 08/18/21 14:00 Resp 32 H 08/18/21 14:00 BP 128/63 08/18/21 08:00 Pulse Ox 97 08/18/21 14:00 Intake & Output 08/17/21 08/18/21 08/18/21 18:59 06:59 18:59 Intake Total 5658.364 8729 1047.786 Output Total 450 505 470 Balance 757.000 931 577.786 Weight 98 kg 92.7 kg Intake: IV 916 1236 824 Dextrose 5%-0.45% NaCl 1, 800 1200 800 000 ml @ 100 mls/hr IV . Q10H [facility] Rx#:[id number] Pressure bag 36 36 24 Sodium Chloride 0.9% 1, 80 000 ml @ 20 mls/hr IV . Q24H [facility] Rx#:[id number] Intake, IV Titration 200.000 200 193.786 Amount fentaNYL (PF). 1,000 mcg 100 100 100 In Sodium Chloride 0.9% 80 ml @ 0.5 MCG/KG/HR 4. 795 mls/hr IV .[id number] [facility] Rx#:[id number] propofoL 1,000 mg In 100.000 100 93.786 Empty Bag 1 bag @ Titrate IV .Q0M [facility] Rx#: [id number] Tube Feeding 31 Other 60 30 Output: Urine 450 505 470 Other: Voiding Method Indwelling Catheter Indwelling Catheter Indwelling Catheter ABP, PAP, CO, CI - Last Documented Arterial Blood Pressure 115/45 - Exam - Exam: limited Exam r/t to COVID GENERAL: intubated, sedated, NAD Lungs: Mechanically ventilated, bilateral bases diminished, coarse Heart: Regular rate and rhythm per head correction officer Abdomen: Soft, nondistended, positive bowel sounds Extremities: No edema Neurological: Sedated - Labs CBC & Chem 7: 08/18/21 04:45 08/18/21 04:45 Labs: Abnormal Lab Results - Last 24 Hours (Table) 08/17/21 08/18/21 08/18/21 Range/Units 17:44 04:45 04:45 WBC 12.6 H (3.8-10.6) k/uL RBC 3.31 L (3.80-5.40) m/uL Hgb 10.1 L (11.4-16.0) gm/dL Hct 33.0 L (34.0-46.0) % MCHC 30.7 L (31.0-37.0) g/dL Neutrophils # 11.0 H (1.3-7.7) k/uL Lymphocytes # 0.8 L (1.0-4.8) k/uL D-Dimer (<0.60) mg/L FEU ABG pH (7.35-7.45) ABG pCO2 (35-45) mmHg ABG pO2 (83-108) mmHg ABG HCO3 (21-25) mmol/L ABG Total CO2 (19-24) mmol/L ABG O2 Saturation (94-97) % Sodium 146 H (137-145) mmol/L Chloride 109 H (98-107) mmol/L Carbon Dioxide 36 H (22-30) mmol/L BUN 82 H (7-17) mg/dL Glucose 110 H (74-99) mg/dL POC Glucose (mg/dL) 191 H (75-99) mg/dL C-Reactive Protein 5.9 H (<1.0) mg/dL Total Protein 5.6 L (6.3-8.2) g/dL Albumin 2.4 L (3.5-5.0) g/dL 08/18/21 08/18/21 08/18/21 Range/Units 05:00 05:08 11:26 WBC (3.8-10.6) k/uL RBC (3.80-5.40) m/uL Hgb (11.4-16.0) gm/dL Hct (34.0-46.0) % MCHC (31.0-37.0) g/dL Neutrophils # (1.3-7.7) k/uL Lymphocytes # (1.0-4.8) k/uL D-Dimer 1.44 H (<0.60) mg/L FEU ABG pH 7.32 L (7.35-7.45) ABG pCO2 70 H (35-45) mmHg ABG pO2 60 L (83-108) mmHg ABG HCO3 36 H (21-25) mmol/L ABG Total CO2 38 H (19-24) mmol/L ABG O2 Saturation 91.1 L (94-97) % Sodium (137-145) mmol/L Chloride (98-107) mmol/L Carbon Dioxide (22-30) mmol/L BUN (7-17) mg/dL Glucose (74-99) mg/dL POC Glucose (mg/dL) 152 H (75-99) mg/dL C-Reactive Protein (<1.0) mg/dL Total Protein (6.3-8.2) g/dL Albumin (3.5-5.0) g/dL Assessment and Plan Assessment: Acute Covid pneumonia, sputum culture reporting Moraxella Catarrhalis Acute hypoxic respiratory failure secondary to the above, mechanical ventilator dependent ARDS secondary to acute COVID-19 pneumonia Diabetes mellitus type 2, hyperglycemic, hemoglobin A1c 8.4 Hypothyroidism Essential hypertension Hyperlipidemia Plan: Continue on current medication regime ,monitoring and symptomatic treatment. Covid cocktail, cefepime. Scheduled for trach and potential PEG today. ICU management as per needlemaker. Prognosis poor related to multiple complex medical issues. The impression and plan of care has been dictated as directed. : I performed a history and examination of this patient, discussed the same with the dictator. I agree with the dictator's note ,documented as a scribe. Any additional findings or plans will be noted.
[2021-08-18] MEDS: CLEVIDIPINE BUTYRATE 25 MG in EMPTY BAG 1 BAG IV SCH (17:14)
[2021-08-18 17:55] LABS: Glucose,Whole Blood 154 mg/dL (75-99)
[2021-08-18] MEDS ORDERED: PROPOFOL 10 MG/ML 20 ML VIAL IV ONE (18:25)
[2021-08-18] MEDS ORDERED: ROCURONIUM 10 MG/ML (5 ML VIAL) IV ONE (18:25)
[2021-08-18] MEDS ORDERED: MIDAZOLAM 2 MG/2 ML VIAL ONE (18:25)
[2021-08-18] MEDS ORDERED: KETAMINE 10 MG/ML 20 ML VIAL ONE (18:25)
--- NOTE | 2021-08-18 18:55 | P.OP ---
Date of Procedure: 08/18/21 Preoperative Diagnosis: Respiratory failure Postoperative Diagnosis: Respiratory failure sigmoid colon 19 pneumonia Procedure(s) Performed: Tracheostomy with #8 Shiley fenestrated tracheostomy tube Anesthesia: SHERITA Surgeon: Marcel Arechiga Estimated Blood Loss (ml): 5 Pathology: none sent Condition: stable Disposition: ICU
[2021-08-19] MEDS: ALBUTEROL HFA INHALER INHALATION SCH ×6 (00:46→19:58)
[2021-08-19 00:57] LABS: Glucose,Whole Blood 90 mg/dL (75-99)
[2021-08-19] MEDS: SODIUM CHLORIDE 0.9% 1,000 ML IV SCH (00:58)
[2021-08-19] MEDS: INSULIN ASPART (NovoLOG) 100 UNIT/ML VIAL SQ SCH ×4 (00:58→17:27)
[2021-08-19 05:44] LABS: ABG HCO3 35 mmol/L (21-25); ABG Oxygen Saturation 95.5 % (94-97); ABG PCO2 63 mmHg (35-45); ABG PH 7.35 (7.35-7.45); ABG PO2 74 mmHg (83-108); ABG TCO2 37 mmol/L (19-24); Allen Test Performed? Yes
[2021-08-19] MEDS: fentaNYL (PF). 1,000 MCG in SODIUM CHLORIDE 0.9% 80 ML IV SCH ×2 (06:01→16:24)
[2021-08-19 06:21] LABS: Glucose,Whole Blood 106 mg/dL (75-99)
[2021-08-19] MEDS: INSULIN DETEMIR (LEVEMIR) 100 UNIT/ML SYR SQ SCH ×2 (06:40→21:14)
[2021-08-19] MEDS: LEVOTHYROXINE 100 MCG TAB OG-TUBE SCH (06:40)
[2021-08-19] MEDS: CHLORHEXIDINE GLUCONATE 15 ML CUP MUCOUS MEM SCH ×2 (09:02→21:14)
[2021-08-19] MEDS: CHOLECALCIFEROL 125 MCG (5000 IU) TABLET PO SCH (09:02)
[2021-08-19] MEDS: CEFEPIME 2 GM in SODIUM CHLORIDE 0.9% 100 ML IVPB SCH ×2 (09:02→21:14)
[2021-08-19] MEDS: ASCORBIC ACID 500 MG TAB PO SCH (09:02)
[2021-08-19] MEDS: ZINC SULFATE 220 MG CAP PO SCH (09:02)
[2021-08-19] MEDS: DEXAMETHASONE SOD PHOSPHATE 10 MG/ML 1 ML VIAL IVP SCH (09:07)
[2021-08-19] MEDS: PANTOPRAZOLE 40 MG/10 ML VIAL IVP SCH (09:07)
[2021-08-19] MEDS: ENOXAPARIN 40 MG/0.4 ML SYRINGE SQ SCH (09:07)
[2021-08-19 09:55] LABS: Basophils % (A) 0 %; Eosinophils # (A) 0.1 k/uL (0-0.7); Eosinophils % (A) 1 %; HCT 31.7 % (34.0-46.0); HGB 10.1 gm/dL (11.4-16.0); Hypochromasia Moderate; Lymphocytes # (A) 0.9 k/uL (1.0-4.8); Lymphocytes % (A) 9 %; MCH 31.7 pg (25.0-35.0); MCHC 31.9 g/dL (31.0-37.0); MCV 99.5 fL (80.0-100.0); Mean Platelet Volume 8.7; Monocytes # (A) 0.3 k/uL (0-1.0); Monocytes % (A) 4 %; Neutrophils % (A) 85 %; Platelet Count 190 k/uL (150-450); RBC 3.19 m/uL (3.80-5.40); RDW 14.2 % (11.5-15.5); WBC 9.4 k/uL (3.8-10.6)
[2021-08-19 10:12] LABS: Calcium 8.9 mg/dL (8.4-10.2); Potassium 4.5 mmol/L (3.5-5.1)
--- NOTE | 2021-08-19 10:35 | XR ---
EXAMINATION TYPE: XR chest 1V DATE OF EXAM: 08/19/2021 COMPARISON: Chest x-ray 08/17/2021 HISTORY: Status post tracheostomy tube placement TECHNIQUE: Single frontal view of the chest is obtained. FINDINGS: Endotracheal tube has been removed in the interval, tracheostomy tube is placed and is ove rlying the tracheal air column. Left subclavian central venous catheter, NG tube are in place and ove rlying appropriate positions. There is no evident pneumothorax or pleural effusion. Bilateral airspac e disease persists. Cardiac mediastinal silhouette is stable. There are overlying artifacts. IMPRESSION: Status post tracheostomy tube placement without evident complication. Correlate for pneu monia, ARDS, pulmonary edema
--- NOTE | 2021-08-19 10:39 | P.PN ---
<Maureen Horne - Last Filed: 08/19/21 10:33> Subjective Progress Note Date: 08/19/21 CHIEF COMPLAINT: COVID-19 pneumonia HISTORY OF PRESENT ILLNESS: Patient remains in the ICU intubated and on mechanical ventilation. She is status post tracheostomy placement yesterday. She has a small leak at trach site. She has some loss in her tidal volumes. This is being monitored. Oxygen saturation around 95% Patient unable to have PEG tube placed because of significant swelling of the hypopharynx. Patient currently has OG tube for tube feeds. Afebrile. WBC 9.4 PHYSICAL EXAM: VITAL SIGNS: Reviewed. GENERAL: Well-developed in no acute distress. HEENT: No sclera icterus. Moist buccal mucosa. Head is atraumatic, normocephalic. tracheostomy site with small air leak. Otherwise clean and dry ABDOMEN: Soft. Nondistended. Nontender. NEUROLOGIC: intubated and sedated ASSESSMENT: 1. Acute hypoxic respiratory failure secondary to COVID-19 pneumonia requiring mechanical ventilation status post tracheostomy placement 2. Severe protein calorie malnutrition PLAN: -Continue to monitor tracheostomy leak -Continue ICU management -Continue supportive care Physician Fourdrinier Wire Weaver note has been reviewed by physician. Signing provider agrees with the documented findings, assessment, and plan of care. Objective - Vital Signs Vital signs: Vital Signs Temp 98.6 F 08/19/21 08:00 Pulse 69 08/19/21 09:00 Resp 32 H 08/19/21 09:00 BP 128/63 08/19/21 09:00 Pulse Ox 95 08/19/21 09:00 Intake & Output 08/18/21 08/19/21 08/19/21 18:59 06:59 18:59 Intake Total 1639.907 716 169 Output Total 695 570 300 Balance 944.907 146 -131 Weight 92.7 kg Intake: IV 1236 516 169 Cefepime 2 gm In Sodium 100 Chloride 0.9% 100 ml @ 25 mls/hr IVPB Q12H [facility] Rx# :[id number] Dextrose 5%-0.45% NaCl 1, 1200 300 000 ml @ 100 mls/hr IV . Q10H [facility] Rx#:[id number] Pressure bag 36 36 9 Sodium Chloride 0.9% 1, 180 60 000 ml @ 20 mls/hr IV . Q24H [facility] Rx#:[id number] Intake, IV Titration 373.907 200 Amount fentaNYL (PF). 1,000 mcg 199.416 100 In Sodium Chloride 0.9% 80 ml @ 0.5 MCG/KG/HR 4. 795 mls/hr IV .[id number] [facility] Rx#:[id number] propofoL 1,000 mg In 174.491 100 Empty Bag 1 bag @ Titrate IV .Q0M [facility] Rx#: [id number] Other 30 Output: Urine 690 570 300 Estimated Blood Loss 5 Other: Voiding Method Indwelling Catheter Indwelling Catheter Indwelling Catheter ABP, PAP, CO, CI - Last Documented Arterial Blood Pressure 120/47 - Labs CBC & Chem 7: 08/19/21 09:32 08/19/21 09:32 Labs: Abnormal Lab Results - Last 24 Hours (Table) 08/18/21 08/18/21 08/19/21 Range/Units 11:26 17:43 05:39 RBC (3.80-5.40) m/uL Hgb (11.4-16.0) gm/dL Hct (34.0-46.0) % Neutrophils # (1.3-7.7) k/uL Lymphocytes # (1.0-4.8) k/uL ABG pCO2 63 H (35-45) mmHg ABG pO2 74 L (83-108) mmHg ABG HCO3 35 H (21-25) mmol/L ABG Total CO2 37 H (19-24) mmol/L Chloride (98-107) mmol/L Carbon Dioxide (22-30) mmol/L BUN (7-17) mg/dL Glucose (74-99) mg/dL POC Glucose (mg/dL) 152 H 154 H (75-99) mg/dL 08/19/21 08/19/21 08/19/21 Range/Units 06:11 09:32 09:32 RBC 3.19 L (3.80-5.40) m/uL Hgb 10.1 L (11.4-16.0) gm/dL Hct 31.7 L (34.0-46.0) % Neutrophils # 8.0 H (1.3-7.7) k/uL Lymphocytes # 0.9 L (1.0-4.8) k/uL ABG pCO2 (35-45) mmHg ABG pO2 (83-108) mmHg ABG HCO3 (21-25) mmol/L ABG Total CO2 (19-24) mmol/L Chloride 110 H (98-107) mmol/L Carbon Dioxide 32 H (22-30) mmol/L BUN 70 H (7-17) mg/dL Glucose 106 H (74-99) mg/dL POC Glucose (mg/dL) 106 H (75-99) mg/dL <Patel Tejeda - Last Filed: 08/19/21 16:51> Subjective As above. Patient with some air leak from the tracheostomy site. Patient maintaining her saturations. Peeps still at 16. Continue to monitor tracheostomy. Tentative plans for PEG tube placement Sunday. Objective - Vital Signs Vital signs: Vital Signs Temp 97.9 F 08/19/21 16:00 Pulse 66 08/19/21 16:00 Resp 32 H 08/19/21 16:00 BP 128/63 08/19/21 12:00 Pulse Ox 96 08/19/21 16:00 Intake & Output 08/18/21 08/19/21 08/19/21 18:59 06:59 18:59 Intake Total 1639.907 716 868.576 Output Total 695 570 945 Balance 944.907 146 -76.424 Weight 92.7 kg Intake: IV 1236 516 330 Cefepime 2 gm In Sodium 100 Chloride 0.9% 100 ml @ 25 mls/hr IVPB Q12H [facility] Rx# :[id number] Dextrose 5%-0.45% NaCl 1, 1200 300 000 ml @ 100 mls/hr IV . Q10H [facility] Rx#:[id number] Pressure bag 36 36 30 Sodium Chloride 0.9% 1, 180 200 000 ml @ 20 mls/hr IV . Q24H [facility] Rx#:[id number] Intake, IV Titration 373.907 200 199.576 Amount fentaNYL (PF). 1,000 mcg 199.416 100 99.576 In Sodium Chloride 0.9% 80 ml @ 0.5 MCG/KG/HR 4. 795 mls/hr IV .[id number] [facility] Rx#:[id number] propofoL 1,000 mg In 174.491 100 100 Empty Bag 1 bag @ Titrate IV .Q0M [facility] Rx#: [id number] Tube Feeding 279 Other 30 60 Output: Urine 690 570 945 Estimated Blood Loss 5 Other: Voiding Method Indwelling Catheter Indwelling Catheter Indwelling Catheter ABP, PAP, CO, CI - Last Documented Arterial Blood Pressure 125/48 - Labs CBC & Chem 7: 08/19/21 09:32 08/19/21 09:32 Labs: Abnormal Lab Results - Last 24 Hours (Table) 08/18/21 08/19/21 08/19/21 Range/Units 17:43 05:39 06:11 RBC (3.80-5.40) m/uL Hgb (11.4-16.0) gm/dL Hct (34.0-46.0) % Neutrophils # (1.3-7.7) k/uL Lymphocytes # (1.0-4.8) k/uL ABG pCO2 63 H (35-45) mmHg ABG pO2 74 L (83-108) mmHg ABG HCO3 35 H (21-25) mmol/L ABG Total CO2 37 H (19-24) mmol/L Chloride (98-107) mmol/L Carbon Dioxide (22-30) mmol/L BUN (7-17) mg/dL Glucose (74-99) mg/dL POC Glucose (mg/dL) 154 H 106 H (75-99) mg/dL 08/19/21 08/19/21 08/19/21 Range/Units 09:32 09:32 11:42 RBC 3.19 L (3.80-5.40) m/uL Hgb 10.1 L (11.4-16.0) gm/dL Hct 31.7 L (34.0-46.0) % Neutrophils # 8.0 H (1.3-7.7) k/uL Lymphocytes # 0.9 L (1.0-4.8) k/uL ABG pCO2 (35-45) mmHg ABG pO2 (83-108) mmHg ABG HCO3 (21-25) mmol/L ABG Total CO2 (19-24) mmol/L Chloride 110 H (98-107) mmol/L Carbon Dioxide 32 H (22-30) mmol/L BUN 70 H (7-17) mg/dL Glucose 106 H (74-99) mg/dL POC Glucose (mg/dL) 123 H (75-99) mg/dL
[2021-08-19 11:44] LABS: Glucose,Whole Blood 123 mg/dL (75-99)
--- NOTE | 2021-08-19 11:55 | XR ---
EXAMINATION TYPE: XR chest 1V confirm line [facility] DATE OF EXAM: 08/19/2021 COMPARISON: Chest x-ray same dated earlier time HISTORY: Status post PICC line placement TECHNIQUE: Single frontal view of the chest is obtained. FINDINGS: There is been interval placement of a left-sided PICC line, distal tip is near the cavoatr ial junction level. No evident pneumothorax or other significant interval change. There are overlying artifacts. IMPRESSION: No evident complication status post PICC line placement.
--- NOTE | 2021-08-19 12:43 | P.PN ---
Subjective Progress Note Date: 08/19/21 Principal diagnosis: Acute hypoxic resp. failure second to COVID-19 pneumonia 08/14/2021, the patient's condition remains essentially unchanged. She has post COVID 19 related pneumonia with secondary ARDS and her oxygenation has remained unchanged and her ventilator settings have been essentially remained stable over the past several days. This morning, the patient remains sedated and she is currently on propofol running at a rate of 45 mcg/kg per minute. The patient is not paralyzed at this point in time. We should be able to cut down her sedation to a lower level at this point. Meanwhile, we are still allowed permissive hypercapnia. She is on low tidal volume mechanical ventilation with a tidal volume of 325, rate of 26, PEEP is at 60 with an FiO2 of 90%. Peak airway pressures 33. Static pressures 31 and all of these numbers are comparable to yesterday. The blood gas showed a pH of 7.37 with a pCO2 of 60 and pO2 of 60. She remains on IV cefepime as the cultures Moraxella in her sputum. Her respiratory secretions are scant at this point in time. She is afebrile. She is hemodynamic is stable. She remains on Decadron. Her mother markers have improved specially the LDH. Her CRP was still elevated at 23 however this was also downtrending. She remains on enteral feeding for nutritional support. She is receiving vital AF and she is currently ongoing. Urine output is adequate. Overall fluid balance over the past 24 hours has been +457 mL. No signs of any significant: Overload. Noted the patient has been intubated on 08/05/2021 and her progress has been essentially minimal at this point in time. Unable to do any further weaning from mechanical ventilator due to her poor oxygenation status. Chest x-ray from yesterday was noted. A repeat chest x-ray will be done today. Rest of the blood work essentially stable. She remains on Levemir insulin 30 units in the morning and 10 units in the evening and she is also on a sliding scale insulin coverage. She is also on Lovenox 40 mg subcu for DVT prophylaxis. IV fluids are currently at KVO. Reevaluated today on 08/15/2021, patient remains in the ICU, intubated and mechanically ventilated. She is presently on assist control rate of 26, tidal volume of 325 FiO2 75% PEEP 16. ABG earlier on 90% showed a pO2 of 85 pCO2 of 80 pH of 7.28. Patient is on propofol at 25 g per acute per minute, off Nimbex for now, not requiring any pressors, hemodynamically parra patient is doing well. Patient is on enteral feeding using vital AF 23 mL per hour. Today I suggested adding fentanyl for adequate ventilation and control agitation as propofol alone does not seem to be enough unless we have to increase the dose. Patient had a sedation holiday yesterday, and not much of an improvement noted in the mental status, and the patient would not respond to any stimuli. I suggested today to start increasing the dose of propofol as she seems to be tachypneic and tachycardic, and if not enough, will add fentanyl. But try to avoid Nimbex if possible. Chest x-ray continues to show bilateral interstitial infiltrates. Lines and tubes seem to be in proper position. Labs today WBC count 15.7 hemoglobin 11.2 d-dimer is 1.2, electrodes are normal except for slightly elevated sodium of 145 bicarb is 35 BUN is 69 creatinine 0.93. LDH is 679 C- reactive protein is 26.6 months much of a change in the last few days in both inflammatory markers. Patient remains on the COVID-19 cocktail, she is also on cefepime. Lovenox 40 mg subcu daily. Patient had Moraxella growing out of her sputum on 08/13 and 08/05. Patient was reevaluated today on 08/16/2021, remains in the ICU, intubated and m echanically ventilated. Patient is on assist control rate of 26 tidal volume 325 PEEP of 16 FiO2 75%, ABG showed a pO2 of 73 pCO2 87 pH of 7.24 hence her respiratory rate was increased to 32. Patient remains on propofol at 50 fentanyl at 0.5 mcg/kg/h, she is not requiring Nimbex. Patient had a relatively elevated inflammatory markers including LDH of 766 and C-reactive protein of 18.7. Chest x-ray is not showing much of a change, continues to have bilateral interstitial infiltrates. WBC count showed the 15.7, hemoglobin 11.3 ID d-dimer is 1.12 Reevaluated today on 08/17/2021, patient remains in the ICU, intubated and mechanically ventilated. Patient is scheduled to undergo tracheostomy and PEG tube placement today. She is presently on assist control rate of 3 to tidal volume 325 FiO2 65% and PEEP of 16 she remains on fentanyl at 1 mcg/kg/h propofol at 20 mcg/kg/m patient is on enteral feeding but it is presently on hold for her tracheostomy and PEG tube placement. Chest x-ray continues to show diffuse pneumonic process/ARDS. ABG this morning on 50% showed a pO2 of 52 pCO2 of 72 pH of 7.32, hence FiO2 was increased up to 65%. CBC is relatively unremarkable, sodium is 146 renal profile showed a BUN of 89 creatinine of 1.15. LDH is 509 and C-reactive protein is 8.7. Reevaluated today on 08/18/2021, patient remains in the ICU, intubated and mechanically ventilated. Patient is on assist control rate of 3 to tidal volume 325 FiO2 70% PEEP of 16. ABG is marginal with a pO2 of 60 pCO2 of 70 pH of 7.32, hence no changes were made on her ventilator settings. Patient remains on a fall at 50 mcg/kg/m fentanyl 1 mcg/kg/h she is on D5 4500 mL per hour. CBC is relatively unremarkable hemoglobin is 10.1 electrolytes and renal profile are normal. Patient was seen by general surgery yesterday, and could not pass a scope to be able to perform at PEG tube placement. Hence the patient is scheduled today for tracheostomy, maybe PEG tube placement could be done today in the operating room. At any rate patient is not ready for any weaning, and apparently the family had no problem proceeding with tracheostomy and PEG tube placement. Her overall clinical status remains marginal at best. Reevaluated today on 08/19/2021, patient remains in the ICU, intubated and mecha nically ventilated. Patient is on assist control rate of 32, tidal volume 325 and today I have increased the volume to 400 mostly because of ongoing cough leak from the new tracheostomy she is on 90% FiO2, and PEEP of 16. Chest x-ray continues to show bilateral infiltrates, not much of a change. Patient underwent uneventful tracheostomy yesterday. Her ABG this morning showed a pO2 of 74 pCO2 of 63 pH of 7.35, and not much of a change on the ventilator settings except increasing the tidal volume up to 400. I did cut down her FiO2 to 70%, and instructed nursing to keep her O2 saturation between 89 and 91%. She is on propofol at 25 mcg/kg/m fentanyl 1 mcg/kg/h she is also on Nimbex, and on IV fluid 0.9 normal saline at 20 mL per hour. Patient is scheduled to have a PICC line today. And will DC the central line. After a PICC line placement. Patient remains on enteral feeding via orogastric tube, receiving vital AF and 31 mL per hour. Electrolytes and renal profile are normal today. Remains on the COVID-19 cocktail including ascorbic acid, she is also on Decadron 6 mg IV push daily, Lovenox 40 mg subcu daily, Protonix 40 mg daily IV push, zinc, patient is also on cefepime for underlying Moraxella catarrhalis pneumonia. Objective - Vital Signs Vital signs: Vital Signs Temp 98.2 F 08/19/21 12:00 Pulse 73 08/19/21 12:00 Resp 32 H 08/19/21 12:00 BP 128/63 08/19/21 12:00 Pulse Ox 94 L 08/19/21 12:00 Intake & Output 08/18/21 08/19/21 08/19/21 18:59 06:59 18:59 Intake Total 1639.907 716 238 Output Total 695 570 600 Balance 944.907 146 -362 Weight 92.7 kg Intake: IV 1236 516 238 Cefepime 2 gm In Sodium 100 Chloride 0.9% 100 ml @ 25 mls/hr IVPB Q12H [facility] Rx# :[id number] Dextrose 5%-0.45% NaCl 1, 1200 300 000 ml @ 100 mls/hr IV . Q10H [facility] Rx#:[id number] Pressure bag 36 36 18 Sodium Chloride 0.9% 1, 180 120 000 ml @ 20 mls/hr IV . Q24H [facility] Rx#:[id number] Intake, IV Titration 373.907 200 Amount fentaNYL (PF). 1,000 mcg 199.416 100 In Sodium Chloride 0.9% 80 ml @ 0.5 MCG/KG/HR 4. 795 mls/hr IV .[id number] [facility] Rx#:[id number] propofoL 1,000 mg In 174.491 100 Empty Bag 1 bag @ Titrate IV .Q0M [facility] Rx#: [id number] Other 30 Output: Urine 690 570 600 Estimated Blood Loss 5 Other: Voiding Method Indwelling Catheter Indwelling Catheter Indwelling Catheter ABP, PAP, CO, CI - Last Documented Arterial Blood Pressure 110/52 - Exam Physical Exam: Revealed a 76-year-old female sedated, on propofol,, and on fentanyl. intubated, in no distress. Tracheostomy is noted. Head: Atraumatic, normocephalic. Orogastric tube is intact. HEENT:[Neck is supple.] [No neck masses.] [No thyromegaly.] [No JVD.] Chest: [Zenaida at the bases no rhonchi and no wheezes. Cardiac Exam: Distant S1 and S2, no S3 gallop. Abdomen: [Obese, Soft, nontender, no megaly, no rebound, no guarding, normal bowel sounds.] Extremities: [No clubbing, no edema, no cyanosis.] Neurological Exam: Unable to assess. Mostly because of sedation. Psychiatric: Could not assess. Skin: No rashes. - Labs CBC & Chem 7: 08/19/21 09:32 08/19/21 09:32 Labs: Abnormal Lab Results - Last 24 Hours (Table) 08/18/21 08/19/21 08/19/21 Range/Units 17:43 05:39 06:11 RBC (3.80-5.40) m/uL Hgb (11.4-16.0) gm/dL Hct (34.0-46.0) % Neutrophils # (1.3-7.7) k/uL Lymphocytes # (1.0-4.8) k/uL ABG pCO2 63 H (35-45) mmHg ABG pO2 74 L (83-108) mmHg ABG HCO3 35 H (21-25) mmol/L ABG Total CO2 37 H (19-24) mmol/L Chloride (98-107) mmol/L Carbon Dioxide (22-30) mmol/L BUN (7-17) mg/dL Glucose (74-99) mg/dL POC Glucose (mg/dL) 154 H 106 H (75-99) mg/dL 08/19/21 08/19/21 08/19/21 Range/Units 09:32 09:32 11:42 RBC 3.19 L (3.80-5.40) m/uL Hgb 10.1 L (11.4-16.0) gm/dL Hct 31.7 L (34.0-46.0) % Neutrophils # 8.0 H (1.3-7.7) k/uL Lymphocytes # 0.9 L (1.0-4.8) k/uL ABG pCO2 (35-45) mmHg ABG pO2 (83-108) mmHg ABG HCO3 (21-25) mmol/L ABG Total CO2 (19-24) mmol/L Chloride 110 H (98-107) mmol/L Carbon Dioxide 32 H (22-30) mmol/L BUN 70 H (7-17) mg/dL Glucose 106 H (74-99) mg/dL POC Glucose (mg/dL) 123 H (75-99) mg/dL Assessment and Plan Assessment: Impression: Acute hypoxic respiratory failure secondary to COVID-19 pneumonia, patient was on baricitinib and this was discontinued because of the Moraxella infection noted. Patient was intubated on 08/05 with minimal improvement since intubation. Possible superimposed Moraxella catarrhalis pneumonia based on positive sputum cultures and the patient remains on cefepime. ARDS secondary to COVID-19 pneumonia Elevated inflammatory markers second to COVID-19 pneumonia Benign essential hypertension Suspect metabolic encephalopathy secondary to COVID-19 pneumonia Dyslipidemia Type 2 diabetes History of hypothyroidism Status post tracheostomy on 07/19/2021, however attempts failed to place a PEG tube in this patient. Recommendations: Continue ventilatory support , ABG is marginal at best. However I was able to cut down her FiO2 to 70%, and advised to monitor her O2 saturation maintain O2 saturation between 89 and 91%. Proceed with PICC line placement today and discontinue central line. Continue enteral feeding patient is receiving vital AF at 31 mL/h/cor. Continue COVID-19 cocktail Continue Decadron. Keep patient off baricitinib Continue IV cefepime for her presumed Moraxella catarrhalis pneumonia, coarse will be renewed. Patient remains critically ill. Critical care time is over 30 minutes. Time with Patient: Greater than 30
--- NOTE | 2021-08-19 13:55 | P.PN ---
Subjective Progress Note Date: 08/19/21 This is a 76-year-old female who presented to emergency room with cough, congestion, dyspnea and weakness and fatigue over several weeks. Approximately week ago patient took a home Covid test which indicated that she was positive. She has not received Covid vaccine or treatment for the positive Covid test. When symptoms worsened she decided to present to the ER for evaluation and treatment. She was initially placed on BiPAP in the intensive care unit and subsequently been intubated. She is currently paralyzed with cisatracurium, sedated with propofol and utilizing Toradol IV push for pain management. Currently mechanically ventilated on 80% FiO2. Patient is afebrile 96.9, respiratory rate of 26, blood pressure is stable at 109/51, maintain oxygen saturation of 90% and entitle CO2 of 28. Most recent set of vital signs WC count of 15.5, hematocrit of 35.6, hemoglobin 12.0, platelet count 119. Chemistry panel reveals a sodium 138, potassium 3.8, BUN of 19, creatinine 0.72, GFR 83, AST of 99, ELT 106, alk phos 131, LDH 847. TSH of 8.37. T4 0.5, pro- calcitonin 0.34 08/08/2021 remains mechanical ventilator-dependent, FiO2 decreased to 65%, PEEP remains at 20. Continues on Nimbex and diprovan drips. Chest x-ray reported patchy bilateral infiltrate with diffuse interstitial pattern, tiny right-sided pleural effusion, received Lasix. Maintained on Rocephin (Moraxella catarrhalis in the sputum) , Covid cocktail with Baricitinib discontinued. Blood sugars elevated. Afebrile, WBC 13.3. Pro-calcitonin 0.34. 08/09/2021 continues on FiO2 65% with PEEP of 20, Nimbex and diprovan drips. Chest x-ray reporting persistent patchy bilateral infiltrate with diffuse interstitial pattern. Received additional Lasix today Blood sugars elevated, improving, A1c 8.4. Afebrile, WBC 14.3. D-dimer 0.77, ferritin increased to 2512, LDH decreased to 606, CRP increased to 21.2. LFTs decreasing with the exception of alkaline phosphatase, increased to 171. ProBNP 453. Receiving tube feeds to call, tolerating well with minimal to no residuals, stooling. 08/10/2021 remains vent dependent, FiO2 60%/+18 of PEEP. Maintained on Nimbex and diprovan drips. Chest x-ray noted, unchanged. Currently afebrile, T-max 99.1, WBC trending down, 12.7. BUN 24, and 0.74. Repeat pro-calcitonin 0.31. Additional Levemir added to med regimen yesterday, Blood sugars controlled. Received Lasix IV push yesterday again, diuresed well with 24-hour I&O reflecting a negative fluid balance. Sodium within normal limits, 142. 08/11/2021 yesterday patient of placed on Nimbex holiday, during the night unable to tolerate became asynchronous with the ventNimbex resumed. Diprovan drip continues. Maintained on FiO2 65% with PEEP decreased to 17. Maintained on Rocephin ,Covid cocktail. Chest x-ray reporting stable diffuse bilateral infiltrate. Inflammatory markers decreasing.Tolerating tube feeds minimal to no residual. Levemir increased yesterday with blood sugars controlled. Afebrile. 08/12/2021 patient was given another paralytic holiday yesterday and continues off of Nimbex. During the night, difficulty maintaining O2 sats, cuff leak discovered, required higher FiO2. Maintained on diprovan. Currently FIO2 90%, PEEP of 16. Chest x-ray reporting bilateral moderate pulmonary edema, possibly worsening, antibiotics adjusted, now on cefepime. Maintained on Covid cocktail. Blood sugars controlled. Renal function stable. 08/15/2021 remains vent dependent, FiO2 75%/+16 of PEEP. Maintained on diprovan and fentanyl drips. Currently off paralytics. Sedation holiday attempted yesterday with minimal improvement of mental status, no response to any stimuli reported. Chest x-ray reporting persistent bilateral airspace disease. Continues on cefepime. Tolerating tube feeds at goal, with minimal to no residuals, blood sugars controlled. Inflammatory markers mildly increased. 08/16/2021 remains vent dependent, FiO2 65%/+16 of PEEP. Chest x-ray reporting diffuse interstitial and alveolar infiltrates. Maintained on diprovan and fentanyl drips. Community Relations Director currently discussing treatment of trach and peg with family. T-max 99.1, WBC 15.7. D-dimer, CRP decreased, LDH increased. 08/17/2021 vent dependent, FiO2 50%/+16 of PEEP. Chest x-ray reporting diffuse interstitial and alveolar infiltrates. Tube feeds and lovenox on hold. Maintained on IV fluid hydration D5/45. Scheduled for trach and peg today. T-max 99.7, WBC 13.5. Creatinine increased up to 1.15. 08/18/2021 Remains vent dependent, FiO2 70+16 of PEEP.Maintained on diprovan, fentanyl. PEG tube attempted yesterday, surgeon unable to pass scope. Patient is scheduled for tracheostomy and potential PEG tube placement today. 08/19/2021 Tracheostomy placed yesterday. Cuff leak present, TV increased. Maintained on 90% FiO2/+16 of PEEP. Chest x-ray reporting bilateral infiltrates.Continues on Nimbex, fentanyl and diprovan. PICC line placed. Tolerating tube feeds via OG of vital AF at goal of 31ml per hour. Sodium normalized, renal function stable. Blood sugars better controlled. Objective - Vital Signs Vital signs: Vital Signs Temp 98.2 F 08/19/21 12:00 Pulse 73 08/19/21 12:00 Resp 32 H 08/19/21 12:00 BP 128/63 08/19/21 12:00 Pulse Ox 94 L 08/19/21 12:00 Intake & Output 08/18/21 08/19/21 08/19/21 18:59 06:59 18:59 Intake Total 1639.907 716 238 Output Total 695 570 600 Balance 944.907 146 -362 Weight 92.7 kg Intake: IV 1236 516 238 Cefepime 2 gm In Sodium 100 Chloride 0.9% 100 ml @ 25 mls/hr IVPB Q12H [facility] Rx# :[id number] Dextrose 5%-0.45% NaCl 1, 1200 300 000 ml @ 100 mls/hr IV . Q10H [facility] Rx#:[id number] Pressure bag 36 36 18 Sodium Chloride 0.9% 1, 180 120 000 ml @ 20 mls/hr IV . Q24H [facility] Rx#:[id number] Intake, IV Titration 373.907 200 Amount fentaNYL (PF). 1,000 mcg 199.416 100 In Sodium Chloride 0.9% 80 ml @ 0.5 MCG/KG/HR 4. 795 mls/hr IV .[id number] [facility] Rx#:[id number] propofoL 1,000 mg In 174.491 100 Empty Bag 1 bag @ Titrate IV .Q0M [facility] Rx#: [id number] Other 30 Output: Urine 690 570 600 Estimated Blood Loss 5 Other: Voiding Method Indwelling Catheter Indwelling Catheter Indwelling Catheter ABP, PAP, CO, CI - Last Documented Arterial Blood Pressure 110/52 - Exam - Exam: limited Exam r/t to COVID GENERAL: intubated, sedated, NAD Lungs: Mechanically ventilated, bilateral bases diminished, coarse Heart: Regular rate and rhythm per monitor technician Abdomen: Soft, nondistended, positive bowel sounds Extremities: No edema Neurological: Sedated - Labs CBC & Chem 7: 08/19/21 09:32 08/19/21 09:32 Labs: Abnormal Lab Results - Last 24 Hours (Table) 08/18/21 08/19/21 08/19/21 Range/Units 17:43 05:39 06:11 RBC (3.80-5.40) m/uL Hgb (11.4-16.0) gm/dL Hct (34.0-46.0) % Neutrophils # (1.3-7.7) k/uL Lymphocytes # (1.0-4.8) k/uL ABG pCO2 63 H (35-45) mmHg ABG pO2 74 L (83-108) mmHg ABG HCO3 35 H (21-25) mmol/L ABG Total CO2 37 H (19-24) mmol/L Chloride (98-107) mmol/L Carbon Dioxide (22-30) mmol/L BUN (7-17) mg/dL Glucose (74-99) mg/dL POC Glucose (mg/dL) 154 H 106 H (75-99) mg/dL 08/19/21 08/19/21 08/19/21 Range/Units 09:32 09:32 11:42 RBC 3.19 L (3.80-5.40) m/uL Hgb 10.1 L (11.4-16.0) gm/dL Hct 31.7 L (34.0-46.0) % Neutrophils # 8.0 H (1.3-7.7) k/uL Lymphocytes # 0.9 L (1.0-4.8) k/uL ABG pCO2 (35-45) mmHg ABG pO2 (83-108) mmHg ABG HCO3 (21-25) mmol/L ABG Total CO2 (19-24) mmol/L Chloride 110 H (98-107) mmol/L Carbon Dioxide 32 H (22-30) mmol/L BUN 70 H (7-17) mg/dL Glucose 106 H (74-99) mg/dL POC Glucose (mg/dL) 123 H (75-99) mg/dL Assessment and Plan Assessment: Acute Covid pneumonia, sputum culture reporting Moraxella Catarrhalis Acute hypoxic respiratory failure secondary to the above, mechanical ventilator dependent ARDS secondary to acute COVID-19 pneumonia Diabetes mellitus type 2, hyperglycemic, hemoglobin A1c 8.4 Hypothyroidism Essential hypertension Hyperlipidemia Plan: Continue on current medication regime ,monitoring and symptomatic treatment. Covid cocktail, cefepime. ICU management as per supervisor claims. Prognosis poor related to multiple complex medical issues. The impression and plan of care has been dictated as directed. : I performed a history and examination of this patient, discussed the same with the dictator. I agree with the dictator's note ,documented as a scribe. Any additional findings or plans will be noted.
--- NOTE | 2021-08-19 13:57 | IR ---
EXAMINATION TYPE: IR cvc insert >=5 years DATE OF EXAM: 08/19/2021 COMPARISON: NONE HISTORY: Infection, pneumonia FINDINGS: Maximal barrier technique was utilized. Hand hygiene obtained with soap and water and alco hol-based hand rub. The skin overlying the left brachial vein was localized with ultrasound and noted to be compressible and patent by ultrasound. An ultrasound image was obtained and submitted on willie ent's chart. Sterile technique utilized with the ultrasound machine. The skin overlying was prepped a nd draped and Lidocaine used for local anesthesia. A skin per was made with a scalpel. Access was gained to the vein under direct ultrasound guidance with a 21-gauge needle and a 0.018 inch wire was advanced. Access site was dilated with a peel-away sheath and the catheter tailored to length. Cath eter advanced centrally and a post procedure chest x-ray verified placement with tip at the superior vena cava. Catheter was fixed to the skin and a sterile dressing placed. Hemostasis achieved and th e catheter was aspirated and flushed with sterile saline. The patient remained in stable condition. IMPRESSION: STATUS POST ULTRASOUND GUIDED PICC LINE PLACEMENT, READY FOR USE. THIS PROCEDURE WAS PER FORMED BY THE UNDERSIGNED.
[2021-08-19 17:15] LABS: Glucose,Whole Blood 138 mg/dL (75-99)
[2021-08-19] MEDS: CLEVIDIPINE BUTYRATE 25 MG in EMPTY BAG 1 BAG IV SCH (17:41)
[2021-08-20] MEDS: ALBUTEROL HFA INHALER INHALATION SCH ×6 (00:49→20:46)
[2021-08-20] MEDS: INSULIN ASPART (NovoLOG) 100 UNIT/ML VIAL SQ SCH ×4 (01:44→18:52)
[2021-08-20] MEDS: fentaNYL (PF). 1,000 MCG in SODIUM CHLORIDE 0.9% 80 ML IV SCH ×2 (01:51→12:01)
[2021-08-20 01:53] LABS: Glucose,Whole Blood 117 mg/dL (75-99)
[2021-08-20 05:34] LABS: Glucose,Whole Blood 134 mg/dL (75-99)
[2021-08-20 05:35] LABS: Basophils # (A) 0.1 k/uL (0-0.2); Basophils % (A) 1 %; Eosinophils # (A) 0.1 k/uL (0-0.7); Eosinophils % (A) 2 %; HCT 28.8 % (34.0-46.0); HGB 9.5 gm/dL (11.4-16.0); Hypochromasia Slight; Lymphocytes # (A) 0.8 k/uL (1.0-4.8); Lymphocytes % (A) 10 %; MCH 31.9 pg (25.0-35.0); MCV 96.6 fL (80.0-100.0); Mean Platelet Volume 8.8; Monocytes # (A) 0.3 k/uL (0-1.0); Monocytes % (A) 4 %; Neutrophils # (A) 6.7 k/uL (1.3-7.7); Neutrophils % (A) 83 %; Platelet Count 170 k/uL (150-450); RBC 2.98 m/uL (3.80-5.40); RDW 14.3 % (11.5-15.5); WBC 8.1 k/uL (3.8-10.6)
[2021-08-20 05:53] LABS: Calcium 8.7 mg/dL (8.4-10.2); Potassium 3.8 mmol/L (3.5-5.1)
[2021-08-20 05:56] LABS: ABG Base Excess 7.5 mmol/L; ABG HCO3 31 mmol/L (21-25); ABG Oxygen Saturation 90.8 % (94-97); ABG PCO2 45 mmHg (35-45); ABG PH 7.46 (7.35-7.45); ABG TCO2 33 mmol/L (19-24); Allen Test Performed? Yes
[2021-08-20 05:59] LABS: ABG PO2 54 mmHg (83-108)
--- NOTE | 2021-08-20 07:20 | XR ---
EXAMINATION TYPE: XR chest 1V DATE OF EXAM: 08/20/2021 COMPARISON: Chest x-ray 08/19/2021 HISTORY: Intubated, abnormal chest x-ray TECHNIQUE: Single frontal view of the chest is obtained. FINDINGS: Tracheostomy tube is overlying appropriate position, left-sided PICC line is present with the tip overlying the cavoatrial junction level. Patient is rotated. NG tube is in place. No evident pneumothorax or pleural effusion. Bilateral airspace disease is present. Cardiac mediastinal silhouet te shows a similar appearance. There are overlying artifacts. IMPRESSION: Correlate for pneumonia, ARDS
[2021-08-20] MEDS: LEVOTHYROXINE 100 MCG TAB OG-TUBE SCH (08:16)
[2021-08-20] MEDS: ASCORBIC ACID 500 MG TAB PO SCH (08:16)
[2021-08-20] MEDS: CEFEPIME 2 GM in SODIUM CHLORIDE 0.9% 100 ML IVPB SCH ×2 (08:16→20:44)
[2021-08-20] MEDS: DEXAMETHASONE SOD PHOSPHATE 10 MG/ML 1 ML VIAL IVP SCH (08:16)
[2021-08-20] MEDS: ZINC SULFATE 220 MG CAP PO SCH (08:16)
[2021-08-20] MEDS: ENOXAPARIN 40 MG/0.4 ML SYRINGE SQ SCH (08:17)
[2021-08-20] MEDS: CHOLECALCIFEROL 125 MCG (5000 IU) TABLET PO SCH (08:17)
[2021-08-20] MEDS: CHLORHEXIDINE GLUCONATE 15 ML CUP MUCOUS MEM SCH ×2 (08:17→20:44)
[2021-08-20] MEDS: INSULIN DETEMIR (LEVEMIR) 100 UNIT/ML SYR SQ SCH ×2 (08:17→20:50)
[2021-08-20] MEDS: PANTOPRAZOLE 40 MG/10 ML VIAL IVP SCH (08:18)
--- NOTE | 2021-08-20 10:21 | P.PN ---
Subjective This is a 76-year-old white female who not been seen in our office for over a year. He came emergency room with cough congestion dyspnea and weakness and fatigue for several weeks. She tested positive for cover a week ago with a home test per the emergency room physician. Per the ER physician she not been vaccinated for current receive any [place] and treatment. She indicates shortness of breath had gotten worse. She denied any fevers severe headache chest pain or pressure. She was seen emergency room. She was on a BiPAP at this time in the intensive care unit.. Her conversation is limited by this. 08/06/2021: Patient is now intubated and sedated/paralyzed. This was done approximately 8 PM last night. She has COVID-19 pneumonia. She remains afebrile. Pulse is somewhat bradycardic over the past 18 hours. Respiratory rate is mechanically ventilated. Blood pressure is stable to this time. Labs show leukocytosis with a WBC count of 15.4 hemoglobin was 12 3 platelets are 113. There is an absolute neutrophilia at 14. Blood gases show pH 7.41 with a P CO2 of 40 and a PO2 of 78. Chemistries essentially normal slightly elevated BUN 21 creatinine 0.78. Glucoses are better controlled. She was placed on insulin drip yesterday. Cultures no growth after 24 hours and the blood, sputum culture pending. Chest x-ray shows bilateral multifocal confluent opacities consistent COVID-19 infection. Improved aeration suggesting improving. He has orders for Ventolin HFA inhaler, remains on vitamin C vitamin D, along with the dexamethasone. She is receiving Baricitnib all for Covid. She is paralyzed and Nimbex and remains on propofol for sedation. Staff indicated tube feeds may start soon. 08/07/2021:This is a 76-year-old female who presented to emergency room with cough, congestion, dyspnea and weakness and fatigue over several weeks. Approximately week ago patient took a home Covid test which indicated that she was positive. She has not received Covid vaccine or treatment for the positive Covid test. When symptoms worsened she decided to present to the ER for evaluation and treatment. She was initially placed on BiPAP in the intensive care unit and subsequently been intubated. She is currently paralyzed with c isatracurium, sedated with propofol and utilizing Toradol IV push for pain management. Currently mechanically ventilated on 80% FiO2. Patient is afebrile 96.9, respiratory rate of 26, blood pressure is stable at 109/51, maintain oxygen saturation of 90% and entitle CO2 of 28. Most recent set of vital signs WC count of 15.5, hematocrit of 35.6, hemoglobin 12.0, platelet count 119. Chemistry panel reveals a sodium 138, potassium 3.8, BUN of 19, creatinine 0.72, GFR 83, AST of 99, ELT 106, alk phos 131, LDH 847. TSH of 8.37. T4 0.5, pro- calcitonin 0.34 08/08/2021 remains mechanical ventilator-dependent, FiO2 decreased to 65%, PEEP remains at 20. Continues on Nimbex and diprovan drips. Chest x-ray reported patchy bilateral infiltrate with diffuse interstitial pattern, tiny right-sided pleural effusion, received Lasix. Maintained on Rocephin (Moraxella catarrhalis in the sputum) , Covid cocktail with Baricitinib discontinued. Blood sugars elevated. Afebrile, WBC 13.3. Pro-calcitonin 0.34. 08/09/2021 continues on FiO2 65% with PEEP of 20, Nimbex and diprovan drips. Chest x-ray reporting persistent patchy bilateral infiltrate with diffuse interstitial pattern. Received additional Lasix today Blood sugars elevated, improving, A1c 8.4. Afebrile, WBC 14.3. D-dimer 0.77, ferritin increased to 2512, LDH decreased to 606, CRP increased to 21.2. LFTs decreasing with the exception of alkaline phosphatase, increased to 171. ProBNP 453. Receiving tube feeds to call, tolerating well with minimal to no residuals, stooling. 08/10/2021 remains vent dependent, FiO2 60%/+18 of PEEP. Maintained on Nimbex and diprovan drips. Chest x-ray noted, unchanged. Currently afebrile, T-max 99.1, WBC trending down, 12.7. BUN 24, and 0.74. Repeat pro-calcitonin 0.31. Additional Levemir added to med regimen yesterday, Blood sugars controlled. Received Lasix IV push yesterday again, diuresed well with 24-hour I&O reflecting a negative fluid balance. Sodium within normal limits, 142. 08/11/2021 yesterday patient of placed on Nimbex holiday, during the night unable to tolerate became asynchronous with the ventNimbex resumed. Diprovan drip continues. Maintained on FiO2 65% with PEEP decreased to 17. Maintained on Rocephin ,Covid cocktail. Chest x-ray reporting stable diffuse bilateral infiltrate. Inflammatory markers decreasing.Tolerating tube feeds minimal to no residual. Levemir increased yesterday with blood sugars controlled. Afebrile. 08/12/2021 patient was given another paralytic holiday yesterday and continues off of Nimbex. During the night, difficulty maintaining O2 sats, cuff leak discovered, required higher FiO2. Maintained on diprovan. Currently FIO2 90%, PEEP of 16. Chest x-ray reporting bilateral moderate pulmonary edema, possibly worsening, antibiotics adjusted, now on cefepime. Maintained on Covid cocktail. Blood sugars controlled. Renal function stable. 08/15/2021 remains vent dependent, FiO2 75%/+16 of PEEP. Maintained on diprovan and fentanyl drips. Currently off paralytics. Sedation holiday attempted yesterday with minimal improvement of mental status, no response to any stimuli reported. Chest x-ray reporting persistent bilateral airspace disease. Continues on cefepime. Tolerating tube feeds at goal, with minimal to no residuals, blood sugars controlled. Inflammatory markers mildly increased. 08/16/2021 remains vent dependent, FiO2 65%/+16 of PEEP. Chest x-ray reporting diffuse interstitial and alveolar infiltrates. Maintained on diprovan and fentanyl drips. 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 T-max 99.1, WBC 15.7. D-dimer, CRP decreased, LDH increased. 08/17/2021 vent dependent, FiO2 50%/+16 of PEEP. Chest x-ray reporting diffuse interstitial and alveolar infiltrates. Tube feeds and lovenox on hold. Maintained on IV fluid hydration D5/45. Scheduled for trach and peg today. T-max 99.7, WBC 13.5. Creatinine increased up to 1.15. 08/18/2021 Remains vent dependent, FiO2 70+16 of PEEP.Maintained on diprovan, fentanyl. PEG tube attempted yesterday, surgeon unable to pass scope. Patient is scheduled for tracheostomy and potential PEG tube placement today. 08/19/2021 Tracheostomy placed yesterday. Cuff leak present, TV increased. Maintained on 90% FiO2/+16 of PEEP. Chest x-ray reporting bilateral infiltrates.Continues on Nimbex, fentanyl and diprovan. PICC line placed. Tolerating tube feeds via OG of vital AF at goal of 31ml per hour. Sodium normalized, renal function stable. Blood sugars better controlled. 08/20/2021: Patient remains afebrile. She continues to be mechanically ventilated through her tracheostomy tube. Blood pressure stable. She remains on fentanyl, propofol, and cefepime IVs along with the oral tube feeds. Curr ently patient's on an FiO2 of 75%. PEEP is 16. Labs show WBC count 9.5. Blood gases today show pH 7.46 with PCO2 45 and a PO2 of 54. Glucose over the past 24 hours is been between 1:30 and 117. Chest x-ray she shows correlate for pneumonia and ARDS Objective - Vital Signs Vital signs: Vital Signs Temp 98.1 F 08/20/21 08:00 Pulse 63 08/20/21 09:00 Resp 32 H 08/20/21 09:00 BP 128/63 08/20/21 09:00 Pulse Ox 94 L 08/20/21 09:00 Intake & Output 08/19/21 08/20/21 08/20/21 18:59 06:59 18:59 Intake Total 2683.494 9161.626 247 Output Total 1125 480 95 Balance -61.424 573.626 152 Weight 92.7 kg 96.4 kg Intake: IV 399 299 149 Cefepime 2 gm In Sodium 100 100 100 Chloride 0.9% 100 ml @ 25 mls/hr IVPB Q12H [facility] Rx# :[id number] Pressure bag 39 29 9 Sodium Chloride 0.9% 1, 260 170 40 000 ml @ 20 mls/hr IV . Q24H [facility] Rx#:[id number] Intake, IV Titration 199.576 290.626 Amount fentaNYL (PF). 1,000 mcg 99.576 90.626 In Sodium Chloride 0.9% 80 ml @ 0.5 MCG/KG/HR 4. 795 mls/hr IV .[id number] [facility] Rx#:[id number] propofoL 1,000 mg In 100 200 Empty Bag 1 bag @ Titrate IV .Q0M [facility] Rx#: [id number] Tube Feeding 375 374 68 Other 90 90 30 Output: Urine 1125 480 95 Other: Voiding Method Indwelling Catheter Indwelling Catheter Indwelling Catheter ABP, PAP, CO, CI - Last Documented Arterial Blood Pressure 133/49 - Exam GENERAL: elderly female currently intubated and sedated. NECK: Tracheostomy tube in place. Oral feeding tube in place. LUNGS: Breath sounds coarse bilaterally and mechanically ventilated HEART: Regular rate and rhythm without murmurs, rubs or gallops.S1S2 Normal ABDOMEN: Soft, nontender, normoactive bowel sounds. No guarding, no rebound. No masses appreciated. EXTREMITIES:no pitting or edema. No clubbing or cyanosis. NEUROLOGICAL: Sedated SKIN: Warm, Dry, normal turgor, no rashes or lesions noted. - Labs CBC & Chem 7: 08/20/21 05:20 08/20/21 05:20 Labs: Abnormal Lab Results - Last 24 Hours (Table) 08/19/21 08/19/21 08/20/21 Range/Units 11:42 17:11 01:42 RBC (3.80-5.40) m/uL Hgb (11.4-16.0) gm/dL Hct (34.0-46.0) % Lymphocytes # (1.0-4.8) k/uL ABG pH (7.35-7.45) ABG pO2 (83-108) mmHg ABG HCO3 (21-25) mmol/L ABG Total CO2 (19-24) mmol/L ABG O2 Saturation (94-97) % Chloride (98-107) mmol/L BUN (7-17) mg/dL Glucose (74-99) mg/dL POC Glucose (mg/dL) 123 H 138 H 117 H (75-99) mg/dL 08/20/21 08/20/21 08/20/21 Range/Units 05:20 05:20 05:22 RBC 2.98 L (3.80-5.40) m/uL Hgb 9.5 L (11.4-16.0) gm/dL Hct 28.8 L (34.0-46.0) % Lymphocytes # 0.8 L (1.0-4.8) k/uL ABG pH (7.35-7.45) ABG pO2 (83-108) mmHg ABG HCO3 (21-25) mmol/L ABG Total CO2 (19-24) mmol/L ABG O2 Saturation (94-97) % Chloride 112 H (98-107) mmol/L BUN 64 H (7-17) mg/dL Glucose 130 H (74-99) mg/dL POC Glucose (mg/dL) 134 H (75-99) mg/dL 08/20/21 Range/Units 05:53 RBC (3.80-5.40) m/uL Hgb (11.4-16.0) gm/dL Hct (34.0-46.0) % Lymphocytes # (1.0-4.8) k/uL ABG pH 7.46 H (7.35-7.45) ABG pO2 54 L* (83-108) mmHg ABG HCO3 31 H (21-25) mmol/L ABG Total CO2 33 H (19-24) mmol/L ABG O2 Saturation 90.8 L (94-97) % Chloride (98-107) mmol/L BUN (7-17) mg/dL Glucose (74-99) mg/dL POC Glucose (mg/dL) (75-99) mg/dL Assessment and Plan (1) Acute respiratory failure with hypoxia Current Visit: Yes Status: Acute Code(s): J96.01 - ACUTE RESPIRATORY FAILURE WITH HYPOXIA SNOMED Code(s): 71741336 (2) Pneumonia due to COVID-19 virus Current Visit: Yes Status: Acute Code(s): U07.1 - COVID-19; J12.82 - PNEUMONIA DUE TO CORONAVIRUS DISEASE 2019 SNOMED Code(s): 150989817173170155 (3) Hypoxia Current Visit: Yes Status: Acute Code(s): R09.02 - HYPOXEMIA SNOMED Code(s): 886065997 (4) Hypothyroidism, unspecified Current Visit: Yes Status: Acute Code(s): E03.9 - HYPOTHYROIDISM, UNSPECIFIED SNOMED Code(s): 27337693 (5) Mixed hyperlipidemia Current Visit: Yes Status: Acute Code(s): E78.2 - MIXED HYPERLIPIDEMIA SNOMED Code(s): 948963699 (6) Type 2 diabetes mellitus without complications Current Visit: Yes Status: Acute Code(s): E11.9 - TYPE 2 DIABETES MELLITUS WITHOUT COMPLICATIONS SNOMED Code(s): 289175843 Plan: 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 She'll remain on her current medications. She'll continue on the current covid protocol, She is on current orders as reviewed. These include dexamethasone, Lovenox, pantoprazole, levothyroxine, insulin scale, Levemir daily at bedtime 10 units She'll be reevaluated next 24 hours
[2021-08-20] MEDS ORDERED: Potassium Replacement Protocol 1 EACH MISC MISCELLANE PRN (10:26)
[2021-08-20 11:44] LABS: Glucose,Whole Blood 181 mg/dL (75-99)
--- NOTE | 2021-08-20 11:45 | P.PN ---
Subjective Progress Note Date: 08/20/21 Principal diagnosis: Acute hypoxic resp. failure second to COVID-19 pneumonia 08/14/2021, the patient's condition remains essentially unchanged. She has post COVID 19 related pneumonia with secondary ARDS and her oxygenation has remained unchanged and her ventilator settings have been essentially remained stable over the past several days. This morning, the patient remains sedated and she is currently on propofol running at a rate of 45 mcg/kg per minute. The patient is not paralyzed at this point in time. We should be able to cut down her sedation to a lower level at this point. Meanwhile, we are still allowed permissive hypercapnia. She is on low tidal volume mechanical ventilation with a tidal volume of 325, rate of 26, PEEP is at 60 with an FiO2 of 90%. Peak airway pressures 33. Static pressures 31 and all of these numbers are comparable to yesterday. The blood gas showed a pH of 7.37 with a pCO2 of 60 and pO2 of 60. She remains on IV cefepime as the cultures Moraxella in her sputum. Her respiratory secretions are scant at this point in time. She is afebrile. She is hemodynamic is stable. She remains on Decadron. Her mother markers have improved specially the LDH. Her CRP was still elevated at 23 however this was also downtrending. She remains on enteral feeding for nutritional support. She is receiving vital AF and she is currently ongoing. Urine output is adequate. Overall fluid balance over the past 24 hours has been +457 mL. No signs of any significant: Overload. Noted the patient has been intubated on 08/05/2021 and her progress has been essentially minimal at this point in time. Unable to do any further weaning from mechanical ventilator due to her poor oxygenation status. Chest x-ray from yesterday was noted. A repeat chest x-ray will be done today. Rest of the blood work essentially stable. She remains on Levemir insulin 30 units in the morning and 10 units in the evening and she is also on a sliding scale insulin coverage. She is also on Lovenox 40 mg subcu for DVT prophylaxis. IV fluids are currently at KVO. Reevaluated today on 08/15/2021, patient remains in the ICU, intubated and mechanically ventilated. She is presently on assist control rate of 26, tidal volume of 325 FiO2 75% PEEP 16. ABG earlier on 90% showed a pO2 of 85 pCO2 of 80 pH of 7.28. Patient is on propofol at 25 g per acute per minute, off Nimbex for now, not requiring any pressors, hemodynamically parra patient is doing well. Patient is on enteral feeding using vital AF 23 mL per hour. Today I suggested adding fentanyl for adequate ventilation and control agitation as propofol alone does not seem to be enough unless we have to increase the dose. Patient had a sedation holiday yesterday, and not much of an improvement noted in the mental status, and the patient would not respond to any stimuli. I suggested today to start increasing the dose of propofol as she seems to be tachypneic and tachycardic, and if not enough, will add fentanyl. But try to avoid Nimbex if possible. Chest x-ray continues to show bilateral interstitial infiltrates. Lines and tubes seem to be in proper position. Labs today WBC count 15.7 hemoglobin 11.2 d-dimer is 1.2, electrodes are normal except for slightly elevated sodium of 145 bicarb is 35 BUN is 69 creatinine 0.93. LDH is 679 C- reactive protein is 26.6 months much of a change in the last few days in both inflammatory markers. Patient remains on the COVID-19 cocktail, she is also on cefepime. Lovenox 40 mg subcu daily. Patient had Moraxella growing out of her sputum on 08/13 and 08/05. Patient was reevaluated today on 08/16/2021, remains in the ICU, intubated and m echanically ventilated. Patient is on assist control rate of 26 tidal volume 325 PEEP of 16 FiO2 75%, ABG showed a pO2 of 73 pCO2 87 pH of 7.24 hence her respiratory rate was increased to 32. Patient remains on propofol at 50 fentanyl at 0.5 mcg/kg/h, she is not requiring Nimbex. Patient had a relatively elevated inflammatory markers including LDH of 766 and C-reactive protein of 18.7. Chest x-ray is not showing much of a change, continues to have bilateral interstitial infiltrates. WBC count showed the 15.7, hemoglobin 11.3 ID d-dimer is 1.12 Reevaluated today on 08/17/2021, patient remains in the ICU, intubated and mechanically ventilated. Patient is scheduled to undergo tracheostomy and PEG tube placement today. She is presently on assist control rate of 3 to tidal volume 325 FiO2 65% and PEEP of 16 she remains on fentanyl at 1 mcg/kg/h propofol at 20 mcg/kg/m patient is on enteral feeding but it is presently on hold for her tracheostomy and PEG tube placement. Chest x-ray continues to show diffuse pneumonic process/ARDS. ABG this morning on 50% showed a pO2 of 52 pCO2 of 72 pH of 7.32, hence FiO2 was increased up to 65%. CBC is relatively unremarkable, sodium is 146 renal profile showed a BUN of 89 creatinine of 1.15. LDH is 509 and C-reactive protein is 8.7. Reevaluated today on 08/18/2021, patient remains in the ICU, intubated and mechanically ventilated. Patient is on assist control rate of 3 to tidal volume 325 FiO2 70% PEEP of 16. ABG is marginal with a pO2 of 60 pCO2 of 70 pH of 7.32, hence no changes were made on her ventilator settings. Patient remains on a fall at 50 mcg/kg/m fentanyl 1 mcg/kg/h she is on D5 4500 mL per hour. CBC is relatively unremarkable hemoglobin is 10.1 electrolytes and renal profile are normal. Patient was seen by general surgery yesterday, and could not pass a scope to be able to perform at PEG tube placement. Hence the patient is scheduled today for tracheostomy, maybe PEG tube placement could be done today in the operating room. At any rate patient is not ready for any weaning, and apparently the family had no problem proceeding with tracheostomy and PEG tube placement. Her overall clinical status remains marginal at best. Reevaluated today on 08/19/2021, patient remains in the ICU, intubated and mecha nically ventilated. Patient is on assist control rate of 32, tidal volume 325 and today I have increased the volume to 400 mostly because of ongoing cough leak from the new tracheostomy she is on 90% FiO2, and PEEP of 16. Chest x-ray continues to show bilateral infiltrates, not much of a change. Patient underwent uneventful tracheostomy yesterday. Her ABG this morning showed a pO2 of 74 pCO2 of 63 pH of 7.35, and not much of a change on the ventilator settings except increasing the tidal volume up to 400. I did cut down her FiO2 to 70%, and instructed nursing to keep her O2 saturation between 89 and 91%. She is on propofol at 25 mcg/kg/m fentanyl 1 mcg/kg/h she is also on Nimbex, and on IV fluid 0.9 normal saline at 20 mL per hour. Patient is scheduled to have a PICC line today. And will DC the central line. After a PICC line placement. Patient remains on enteral feeding via orogastric tube, receiving vital AF and 31 mL per hour. Electrolytes and renal profile are normal today. Remains on the COVID-19 cocktail including ascorbic acid, she is also on Decadron 6 mg IV push daily, Lovenox 40 mg subcu daily, Protonix 40 mg daily IV push, zinc, patient is also on cefepime for underlying Moraxella catarrhalis pneumonia. Reevaluated today on 08/20/2021, patient remains in the ICU, intubated and mechanically ventilated. She is on assist control rate of 3 to tidal volume 400 FiO2 75% PEEP of 16. ABG showed a pO2 of 54 DC O2 of 45 pH of 7.46, hence The patient on FiO2 of 75%, and no other vent changes were made. Patient continues to have tracheostomy, she underwent tracheostomy on 08/17/21, minimal air leak noted from the tracheostomy, however seems to be improving, and she is achieving near her septal volumes. Patient is on fentanyl at 20 mcg/kg/h propofol 25 mc g/kg/m and she is on vital AF. Rate 34. Patient is not on any paralytics. Hence I would assess mental status hopefully today of or possibly a lower dose of sedation. CBC is relatively normal hemoglobin is 9.5. Electrolytes are normal, BUN is 64 creatinine 0.97. Patient is receiving enteral feeding. Remains on the COVID-19 cocktail including Decadron 6 mg IV push daily Lovenox 40 mg subcu daily Protonix 40 mg IV push daily and she is also on vitamin C. Remains on cefepime for underlying Moraxella catarrhalis pneumonia. Objective - Vital Signs Vital signs: Vital Signs Temp 98.1 F 08/20/21 08:00 Pulse 67 08/20/21 11:00 Resp 32 H 08/20/21 11:00 BP 128/63 08/20/21 10:00 Pulse Ox 92 L 08/20/21 11:00 Intake & Output 08/19/21 08/20/21 08/20/21 18:59 06:59 18:59 Intake Total 9805.170 4574.626 341 Output Total 1125 480 195 Balance -61.424 573.626 146 Weight 92.7 kg 96.4 kg Intake: IV 399 299 175 Cefepime 2 gm In Sodium 100 100 100 Chloride 0.9% 100 ml @ 25 mls/hr IVPB Q12H [facility] Rx# :[id number] Pressure bag 39 29 15 Sodium Chloride 0.9% 1, 260 170 60 000 ml @ 20 mls/hr IV . Q24H [facility] Rx#:[id number] Intake, IV Titration 199.576 290.626 Amount fentaNYL (PF). 1,000 mcg 99.576 90.626 In Sodium Chloride 0.9% 80 ml @ 0.5 MCG/KG/HR 4. 795 mls/hr IV .[id number] [facility] Rx#:[id number] propofoL 1,000 mg In 100 200 Empty Bag 1 bag @ Titrate IV .Q0M [facility] Rx#: [id number] Tube Feeding 375 374 136 Other 90 90 30 Output: Urine 1125 480 195 Other: Voiding Method Indwelling Catheter Indwelling Catheter Indwelling Catheter ABP, PAP, CO, CI - Last Documented Arterial Blood Pressure 135/47 - Exam Physical Exam: Revealed a 76-year-old female sedated, on propofol,, and on fentanyl. intubated, in no distress. Tracheostomy is noted. Head: Atraumatic, normocephalic. Orogastric tube is intact. HEENT:[Neck is supple.] [No neck masses.] [No thyromegaly.] [No JVD.] Chest: [Zenaida at the bases no rhonchi and no wheezes. Cardiac Exam: Distant S1 and S2, no S3 gallop. Abdomen: [Obese, Soft, nontender, no megaly, no rebound, no guarding, normal bowel sounds.] Extremities: [No clubbing, 1+ bipedal edema, no cyanosis.] Neurological Exam: Unable to assess. Mostly because of sedation. Psychiatric: Could not assess. Skin: No rashes. - Labs CBC & Chem 7: 08/20/21 05:20 08/20/21 05:20 Labs: Abnormal Lab Results - Last 24 Hours (Table) 08/19/21 08/19/21 08/20/21 Range/Units 11:42 17:11 01:42 RBC (3.80-5.40) m/uL Hgb (11.4-16.0) gm/dL Hct (34.0-46.0) % Lymphocytes # (1.0-4.8) k/uL ABG pH (7.35-7.45) ABG pO2 (83-108) mmHg ABG HCO3 (21-25) mmol/L ABG Total CO2 (19-24) mmol/L ABG O2 Saturation (94-97) % Chloride (98-107) mmol/L BUN (7-17) mg/dL Glucose (74-99) mg/dL POC Glucose (mg/dL) 123 H 138 H 117 H (75-99) mg/dL 08/20/21 08/20/21 08/20/21 Range/Units 05:20 05:20 05:22 RBC 2.98 L (3.80-5.40) m/uL Hgb 9.5 L (11.4-16.0) gm/dL Hct 28.8 L (34.0-46.0) % Lymphocytes # 0.8 L (1.0-4.8) k/uL ABG pH (7.35-7.45) ABG pO2 (83-108) mmHg ABG HCO3 (21-25) mmol/L ABG Total CO2 (19-24) mmol/L ABG O2 Saturation (94-97) % Chloride 112 H (98-107) mmol/L BUN 64 H (7-17) mg/dL Glucose 130 H (74-99) mg/dL POC Glucose (mg/dL) 134 H (75-99) mg/dL 08/20/21 Range/Units 05:53 RBC (3.80-5.40) m/uL Hgb (11.4-16.0) gm/dL Hct (34.0-46.0) % Lymphocytes # (1.0-4.8) k/uL ABG pH 7.46 H (7.35-7.45) ABG pO2 54 L* (83-108) mmHg ABG HCO3 31 H (21-25) mmol/L ABG Total CO2 33 H (19-24) mmol/L ABG O2 Saturation 90.8 L (94-97) % Chloride (98-107) mmol/L BUN (7-17) mg/dL Glucose (74-99) mg/dL POC Glucose (mg/dL) (75-99) mg/dL Assessment and Plan Assessment: Impression: Acute hypoxic respiratory failure secondary to COVID-19 pneumonia, patient was on baricitinib and this was discontinued because of the Moraxella infection noted. Patient was intubated on 08/05 with minimal improvement since intubation. Possible superimposed Moraxella catarrhalis pneumonia based on positive sputum cultures and the patient remains on cefepime. ARDS secondary to COVID-19 pneumonia Elevated inflammatory markers second to COVID-19 pneumonia Benign essential hypertension Suspect metabolic encephalopathy secondary to COVID-19 pneumonia Dyslipidemia Type 2 diabetes History of hypothyroidism Status post tracheostomy on 07/19/2021, however attempts failed to place a PEG tube in this patient. Recommendations: Continue ventilatory support , ABG was noted hence no more changes were made in her ventilator settings. She is on assist control rate of 32. Tidal volume 400 FiO2 75% and PEEP of 16. Patient had a PICC line placed yesterday and her central line was discontinued. Continue enteral feeding patient is receiving vital AF at 31 mL/hr Continue COVID-19 cocktail Continue Decadron. Keep patient off baricitinib Continue IV cefepime for her presumed Moraxella catarrhalis pneumonia, coarse will be renewed. Patient remains critically ill. Advised nursing staff to cut down on her sedation today, and possibly have a brief assessment of mental status of possible Critical care time is over 30 minutes. Time with Patient: Greater than 30
[2021-08-20] MEDS: SODIUM CHLORIDE 0.9% 1,000 ML IV SCH (11:57)
[2021-08-20] MEDS ORDERED: POTASSIUM BICARBONATE/CIT AC 20 MEQ TABLET.EFF NG-TUBE SCH (12:00)
--- NOTE | 2021-08-20 12:00 | P.PN ---
Subjective Progress Note Date: 08/20/21 Principal diagnosis: Respiratory failure Patient stable on the ventilator. Tolerating ventilatory support with a small air leak. Hemodynamically stable. Objective - Vital Signs Vital signs: Vital Signs Temp 98.1 F 08/20/21 08:00 Pulse 67 08/20/21 11:00 Resp 32 H 08/20/21 11:00 BP 128/63 08/20/21 10:00 Pulse Ox 92 L 08/20/21 11:00 Intake & Output 08/19/21 08/20/21 08/20/21 18:59 06:59 18:59 Intake Total 7239.070 7596.626 436.677 Output Total 1125 480 195 Balance -61.424 573.626 241.677 Weight 92.7 kg 96.4 kg Intake: IV 399 299 175 Cefepime 2 gm In Sodium 100 100 100 Chloride 0.9% 100 ml @ 25 mls/hr IVPB Q12H [facility] Rx# :[id number] Pressure bag 39 29 15 Sodium Chloride 0.9% 1, 260 170 60 000 ml @ 20 mls/hr IV . Q24H [facility] Rx#:[id number] Intake, IV Titration 199.576 290.626 95.677 Amount fentaNYL (PF). 1,000 mcg 99.576 90.626 In Sodium Chloride 0.9% 80 ml @ 0.5 MCG/KG/HR 4. 795 mls/hr IV .[id number] [facility] Rx#:[id number] propofoL 1,000 mg In 100 200 95.677 Empty Bag 1 bag @ Titrate IV .Q0M [facility] Rx#: [id number] Tube Feeding 375 374 136 Other 90 90 30 Output: Urine 1125 480 195 Other: Voiding Method Indwelling Catheter Indwelling Catheter Indwelling Catheter ABP, PAP, CO, CI - Last Documented Arterial Blood Pressure 135/47 - Exam Tracheostomy site without a significant drainage, no erythema - Labs CBC & Chem 7: 08/20/21 05:20 08/20/21 05:20 Labs: Abnormal Lab Results - Last 24 Hours (Table) 08/19/21 08/20/21 08/20/21 Range/Units 17:11 01:42 05:20 RBC 2.98 L (3.80-5.40) m/uL Hgb 9.5 L (11.4-16.0) gm/dL Hct 28.8 L (34.0-46.0) % Lymphocytes # 0.8 L (1.0-4.8) k/uL ABG pH (7.35-7.45) ABG pO2 (83-108) mmHg ABG HCO3 (21-25) mmol/L ABG Total CO2 (19-24) mmol/L ABG O2 Saturation (94-97) % Chloride (98-107) mmol/L BUN (7-17) mg/dL Glucose (74-99) mg/dL POC Glucose (mg/dL) 138 H 117 H (75-99) mg/dL 08/20/21 08/20/21 08/20/21 Range/Units 05:20 05:22 05:53 RBC (3.80-5.40) m/uL Hgb (11.4-16.0) gm/dL Hct (34.0-46.0) % Lymphocytes # (1.0-4.8) k/uL ABG pH 7.46 H (7.35-7.45) ABG pO2 54 L* (83-108) mmHg ABG HCO3 31 H (21-25) mmol/L ABG Total CO2 33 H (19-24) mmol/L ABG O2 Saturation 90.8 L (94-97) % Chloride 112 H (98-107) mmol/L BUN 64 H (7-17) mg/dL Glucose 130 H (74-99) mg/dL POC Glucose (mg/dL) 134 H (75-99) mg/dL 08/20/21 Range/Units 11:42 RBC (3.80-5.40) m/uL Hgb (11.4-16.0) gm/dL Hct (34.0-46.0) % Lymphocytes # (1.0-4.8) k/uL ABG pH (7.35-7.45) ABG pO2 (83-108) mmHg ABG HCO3 (21-25) mmol/L ABG Total CO2 (19-24) mmol/L ABG O2 Saturation (94-97) % Chloride (98-107) mmol/L BUN (7-17) mg/dL Glucose (74-99) mg/dL POC Glucose (mg/dL) 181 H (75-99) mg/dL Assessment and Plan (1) Acute respiratory failure with hypoxia Narrative/Plan: Continue supportive care. Monitor air leak from tracheostomy. Plans are underway for PEG tube placement Sunday. Current Visit: Yes Status: Acute Code(s): J96.01 - ACUTE RESPIRATORY FAILURE WITH HYPOXIA SNOMED Code(s): 49208124
[2021-08-20] MEDS: CLEVIDIPINE BUTYRATE 25 MG in EMPTY BAG 1 BAG IV SCH (20:01)
[2021-08-21] MEDS: INSULIN ASPART (NovoLOG) 100 UNIT/ML VIAL SQ SCH ×4 (00:15→18:00)
[2021-08-21] MEDS: ALBUTEROL HFA INHALER INHALATION SCH ×7 (04:09→23:52)
[2021-08-21 05:06] LABS: HCT 29.5 % (34.0-46.0); HGB 9.7 gm/dL (11.4-16.0); Hypochromasia Slight; MCH 31.5 pg (25.0-35.0); MCV 95.4 fL (80.0-100.0); Platelet Count 184 k/uL (150-450); RBC 3.09 m/uL (3.80-5.40); RDW 14.1 % (11.5-15.5); WBC 7.6 k/uL (3.8-10.6)
[2021-08-21 05:26] LABS: Calcium 9.2 mg/dL (8.4-10.2); Potassium 4.2 mmol/L (3.5-5.1)
[2021-08-21 06:06] LABS: ABG Base Excess 6.4 mmol/L; ABG HCO3 31 mmol/L (21-25); ABG Oxygen Saturation 94.2 % (94-97); ABG PCO2 45 mmHg (35-45); ABG PH 7.44 (7.35-7.45); ABG PO2 65 mmHg (83-108); ABG TCO2 32 mmol/L (19-24); Allen Test Performed? Yes
[2021-08-21] MEDS: fentaNYL (PF). 1,000 MCG in SODIUM CHLORIDE 0.9% 80 ML IV SCH (06:31)
--- NOTE | 2021-08-21 07:03 | XR ---
EXAMINATION TYPE: XR chest 1V portable DATE OF EXAM: 08/21/2021 5:47 AM COMPARISON:Chest radiograph from one day prior. CLINICAL INDICATION:Female, 76 years old with history of covid, pna, intubated; TECHNIQUE: Portable AP radiograph of the chest.. FINDINGS: Lungs/Pleura: Routine airspace opacities pronounced in the lung bases. No evidence of pneumothorax or pleural effusion. Pulmonary vascularity: Unremarkable. Heart/mediastinum: Cardiomediastinal silhouette is partially obscured due to overlying and adjacent o pacities. Musculoskeletal: No acute osseous pathology. Other findings: Lines/Tubes: Tracheostomy cannula tip projecting over the trachea. Nasogastric tube with its distal tip and side-port projecting under the diaphragm. Left-sided PICC with distal tip at the cavoatrial junction. IMPRESSION: 1. Improved airspace opacities within the lung bases consistent scattered airspace disease. 2. Stable support lines and tubes.
[2021-08-21] MEDS: SODIUM CHLORIDE 0.9% 1,000 ML IV SCH (07:44)
[2021-08-21] MEDS: INSULIN DETEMIR (LEVEMIR) 100 UNIT/ML SYR SQ SCH ×2 (08:30→21:41)
[2021-08-21] MEDS: ENOXAPARIN 40 MG/0.4 ML SYRINGE SQ SCH (08:31)
[2021-08-21] MEDS: ZINC SULFATE 220 MG CAP PO SCH (08:31)
[2021-08-21] MEDS: LEVOTHYROXINE 100 MCG TAB OG-TUBE SCH (08:31)
[2021-08-21] MEDS: CHOLECALCIFEROL 125 MCG (5000 IU) TABLET PO SCH (08:31)
[2021-08-21] MEDS: CHLORHEXIDINE GLUCONATE 15 ML CUP MUCOUS MEM SCH ×2 (08:31→21:41)
[2021-08-21] MEDS: PANTOPRAZOLE 40 MG/10 ML VIAL IVP SCH (08:31)
[2021-08-21] MEDS: CEFEPIME 2 GM in SODIUM CHLORIDE 0.9% 100 ML IVPB SCH ×2 (08:31→21:40)
[2021-08-21] MEDS: DEXAMETHASONE SOD PHOSPHATE 10 MG/ML 1 ML VIAL IVP SCH (08:31)
[2021-08-21] MEDS: ASCORBIC ACID 500 MG TAB PO SCH (08:31)
--- NOTE | 2021-08-21 10:09 | P.PN ---
Subjective Progress Note Date: 08/21/21 Principal diagnosis: Respiratory failure Patient stable on the ventilator. Tolerating ventilatory support with a small air leak. Air leak seems smaller than yesterday. Oral swelling is improved. Tolerating tube feeds through gastric tube Objective - Vital Signs Vital signs: Vital Signs Temp 98.3 F 08/21/21 00:00 Pulse 70 08/21/21 09:00 Resp 32 H 08/21/21 09:00 BP 128/63 08/20/21 16:00 Pulse Ox 96 08/21/21 09:00 Intake & Output 08/20/21 08/21/21 08/21/21 18:59 06:59 18:59 Intake Total 9226.074 4588.705 344.99 Output Total 555 655 130 Balance 460.917 354.705 214.99 Weight 98 kg Intake: IV 306 336 69 Cefepime 2 gm In Sodium 100 100 Chloride 0.9% 100 ml @ 25 mls/hr IVPB Q12H [facility] Rx# :[id number] Pressure bag 36 36 9 Sodium Chloride 0.9% 1, 170 200 60 000 ml @ 20 mls/hr IV . Q24H [facility] Rx#:[id number] Intake, IV Titration 305.917 175.705 93.99 Amount fentaNYL (PF). 1,000 mcg 121.793 75.705 In Sodium Chloride 0.9% 80 ml @ 0.5 MCG/KG/HR 4. 795 mls/hr IV .[id number] [facility] Rx#:[id number] propofoL 1,000 mg In 184.124 100 93.99 Empty Bag 1 bag @ Titrate IV .Q0M [facility] Rx#: [id number] Tube Feeding 374 408 102 Other 30 90 80 Output: Urine 555 655 130 Other: Voiding Method Indwelling Catheter Indwelling Catheter ABP, PAP, CO, CI - Last Documented Arterial Blood Pressure 135/50 - Exam Abdomen: Soft, nondistended, nontender Tracheostomy site intact - Labs CBC & Chem 7: 08/21/21 05:00 08/21/21 05:00 Labs: Abnormal Lab Results - Last 24 Hours (Table) 08/20/21 08/21/21 08/21/21 Range/Units 11:42 05:00 05:00 RBC 3.09 L (3.80-5.40) m/uL Hgb 9.7 L (11.4-16.0) gm/dL Hct 29.5 L (34.0-46.0) % ABG pO2 (83-108) mmHg ABG HCO3 (21-25) mmol/L ABG Total CO2 (19-24) mmol/L Chloride 112 H (98-107) mmol/L BUN 62 H (7-17) mg/dL Glucose 141 H (74-99) mg/dL POC Glucose (mg/dL) 181 H (75-99) mg/dL 08/21/21 Range/Units 06:00 RBC (3.80-5.40) m/uL Hgb (11.4-16.0) gm/dL Hct (34.0-46.0) % ABG pO2 65 L (83-108) mmHg ABG HCO3 31 H (21-25) mmol/L ABG Total CO2 32 H (19-24) mmol/L Chloride (98-107) mmol/L BUN (7-17) mg/dL Glucose (74-99) mg/dL POC Glucose (mg/dL) (75-99) mg/dL Assessment and Plan (1) Acute respiratory failure with hypoxia Narrative/Plan: Continue ventilatory support. Hold tube feeds after midnight. We'll schedule for PEG tube placement tomorrow. Current Visit: Yes Status: Acute Code(s): J96.01 - ACUTE RESPIRATORY FAILURE WITH HYPOXIA SNOMED Code(s): 51714864
[2021-08-21] MEDS: CLEVIDIPINE BUTYRATE 25 MG in EMPTY BAG 1 BAG IV SCH (10:32)
[2021-08-21] MEDS ORDERED: bisacodyL 10 MG SUPP RECTAL PRN (11:08)
--- NOTE | 2021-08-21 11:28 | P.PN ---
Subjective This is a 76-year-old white female who not been seen in our office for over a year. He came emergency room with cough congestion dyspnea and weakness and fatigue for several weeks. She tested positive for cover a week ago with a home test per the emergency room physician. Per the ER physician she not been vaccinated for current receive any Wirt[place] and treatment. She indicates shortness of breath had gotten worse. She denied any fevers severe headache chest pain or pressure. She was seen emergency room. She was on a BiPAP at this time in the intensive care unit.. Her conversation is limited by this. 08/06/2021: Patient is now intubated and sedated/paralyzed. This was done approximately 8 PM last night. She has COVID-19 pneumonia. She remains afebrile. Pulse is somewhat bradycardic over the past 18 hours. Respiratory rate is mechanically ventilated. Blood pressure is stable to this time. Labs show leukocytosis with a WBC count of 15.4 hemoglobin was 12 3 platelets are 113. There is an absolute neutrophilia at 14. Blood gases show pH 7.41 with a P CO2 of 40 and a PO2 of 78. Chemistries essentially normal slightly elevated BUN 21 creatinine 0.78. Glucoses are better controlled. She was placed on insulin drip yesterday. Cultures no growth after 24 hours and the blood, sputum culture pending. Chest x-ray shows bilateral multifocal confluent opacities consistent COVID-19 infection. Improved aeration suggesting improving. He has orders for Ventolin HFA inhaler, remains on vitamin C vitamin D, along with the dexamethasone. She is receiving Baricitnib all for Covid. She is paralyzed and Nimbex and remains on propofol for sedation. Staff indicated tube feeds may start soon. 08/07/2021:This is a 76-year-old female who presented to emergency room with cough, congestion, dyspnea and weakness and fatigue over several weeks. Approximately week ago patient took a home Covid test which indicated that she was positive. She has not received Covid vaccine or treatment for the positive Covid test. When symptoms worsened she decided to present to the ER for evaluation and treatment. She was initially placed on BiPAP in the intensive care unit and subsequently been intubated. She is currently paralyzed with c isatracurium, sedated with propofol and utilizing Toradol IV push for pain management. Currently mechanically ventilated on 80% FiO2. Patient is afebrile 96.9, respiratory rate of 26, blood pressure is stable at 109/51, maintain oxygen saturation of 90% and entitle CO2 of 28. Most recent set of vital signs WC count of 15.5, hematocrit of 35.6, hemoglobin 12.0, platelet count 119. Chemistry panel reveals a sodium 138, potassium 3.8, BUN of 19, creatinine 0.72, GFR 83, AST of 99, ELT 106, alk phos 131, LDH 847. TSH of 8.37. T4 0.5, pro- calcitonin 0.34 08/08/2021 remains mechanical ventilator-dependent, FiO2 decreased to 65%, PEEP remains at 20. Continues on Nimbex and diprovan drips. Chest x-ray reported patchy bilateral infiltrate with diffuse interstitial pattern, tiny right-sided pleural effusion, received Lasix. Maintained on Rocephin (Moraxella catarrhalis in the sputum) , Covid cocktail with Baricitinib discontinued. Blood sugars elevated. Afebrile, WBC 13.3. Pro-calcitonin 0.34. 08/09/2021 continues on FiO2 65% with PEEP of 20, Nimbex and diprovan drips. Chest x-ray reporting persistent patchy bilateral infiltrate with diffuse interstitial pattern. Received additional Lasix today Blood sugars elevated, improving, A1c 8.4. Afebrile, WBC 14.3. D-dimer 0.77, ferritin increased to 2512, LDH decreased to 606, CRP increased to 21.2. LFTs decreasing with the exception of alkaline phosphatase, increased to 171. ProBNP 453. Receiving tube feeds to call, tolerating well with minimal to no residuals, stooling. 08/10/2021 remains vent dependent, FiO2 60%/+18 of PEEP. Maintained on Nimbex and diprovan drips. Chest x-ray noted, unchanged. Currently afebrile, T-max 99.1, WBC trending down, 12.7. BUN 24, and 0.74. Repeat pro-calcitonin 0.31. Additional Levemir added to med regimen yesterday, Blood sugars controlled. Received Lasix IV push yesterday again, diuresed well with 24-hour I&O reflecting a negative fluid balance. Sodium within normal limits, 142. 08/11/2021 yesterday patient of placed on Nimbex holiday, during the night unable to tolerate became asynchronous with the ventNimbex resumed. Diprovan drip continues. Maintained on FiO2 65% with PEEP decreased to 17. Maintained on Rocephin ,Covid cocktail. Chest x-ray reporting stable diffuse bilateral infiltrate. Inflammatory markers decreasing.Tolerating tube feeds minimal to no residual. Levemir increased yesterday with blood sugars controlled. Afebrile. 08/12/2021 patient was given another paralytic holiday yesterday and continues off of Nimbex. During the night, difficulty maintaining O2 sats, cuff leak discovered, required higher FiO2. Maintained on diprovan. Currently FIO2 90%, PEEP of 16. Chest x-ray reporting bilateral moderate pulmonary edema, possibly worsening, antibiotics adjusted, now on cefepime. Maintained on Covid cocktail. Blood sugars controlled. Renal function stable. 08/15/2021 remains vent dependent, FiO2 75%/+16 of PEEP. Maintained on diprovan and fentanyl drips. Currently off paralytics. Sedation holiday attempted yesterday with minimal improvement of mental status, no response to any stimuli reported. Chest x-ray reporting persistent bilateral airspace disease. Continues on cefepime. Tolerating tube feeds at goal, with minimal to no residuals, blood sugars controlled. Inflammatory markers mildly increased. 08/16/2021 remains vent dependent, FiO2 65%/+16 of PEEP. Chest x-ray reporting diffuse interstitial and alveolar infiltrates. Maintained on diprovan and fentanyl drips. Principal Programmer currently discussing treatment of trach and peg with family. T-max 99.1, WBC 15.7. D-dimer, CRP decreased, LDH increased. 08/17/2021 vent dependent, FiO2 50%/+16 of PEEP. Chest x-ray reporting diffuse interstitial and alveolar infiltrates. Tube feeds and lovenox on hold. Maintained on IV fluid hydration D5/45. Scheduled for trach and peg today. T-max 99.7, WBC 13.5. Creatinine increased up to 1.15. 08/18/2021 Remains vent dependent, FiO2 70+16 of PEEP.Maintained on diprovan, fentanyl. PEG tube attempted yesterday, surgeon unable to pass scope. Patient is scheduled for tracheostomy and potential PEG tube placement today. 08/19/2021 Tracheostomy placed yesterday. Cuff leak present, TV increased. Maintained on 90% FiO2/+16 of PEEP. Chest x-ray reporting bilateral infiltrates.Continues on Nimbex, fentanyl and diprovan. PICC line placed. Tolerating tube feeds via OG of vital AF at goal of 31ml per hour. Sodium normalized, renal function stable. Blood sugars better controlled. 08/20/2021: Patient remains afebrile. She continues to be mechanically ventilated through her tracheostomy tube. Blood pressure stable. She remains on fentanyl, propofol, and cefepime IVs along with the oral tube feeds. Curr ently patient's on an FiO2 of 75%. PEEP is 16. Labs show WBC count 9.5. Blood gases today show pH 7.46 with PCO2 45 and a PO2 of 54. Glucose over the past 24 hours is been between 1:30 and 117. Chest x-ray she shows correlate for pneumonia and ARDS. 08/21/2021: Patient remains sedated with tracheostomy tube. A PEG tube placement is planned for tomorrow. She is on oral gastric feeding tube at goal at this time. She is afebrile. Vitals are stable. She remains mechanically ventilated. She currently remains on fentanyl and propofol, the doses have been reduced. Staff report she'll open her eyes but is not following commands at this time. She is a Sosa catheter to gravity. There's been no bowel movement. Multiple days. She remains on the COVID-19 cocktail including Decadron, L ovenox, Protonix, vitamin C. She remains on cefepime antibiotics for possible Moraxella pneumonia. Objective - Vital Signs Vital signs: Vital Signs Temp 98.3 F 08/21/21 00:00 Pulse 70 08/21/21 09:00 Resp 32 H 08/21/21 09:00 BP 128/63 08/20/21 16:00 Pulse Ox 96 08/21/21 09:00 Intake & Output 08/20/21 08/21/21 08/21/21 18:59 06:59 18:59 Intake Total 6002.176 0473.705 344.99 Output Total 555 655 130 Balance 460.917 354.705 214.99 Weight 98 kg Intake: IV 306 336 69 Cefepime 2 gm In Sodium 100 100 Chloride 0.9% 100 ml @ 25 mls/hr IVPB Q12H [facility] Rx# :[id number] Pressure bag 36 36 9 Sodium Chloride 0.9% 1, 170 200 60 000 ml @ 20 mls/hr IV . Q24H [facility] Rx#:[id number] Intake, IV Titration 305.917 175.705 93.99 Amount Clevidipine Butyrate 25 0 mg In Empty Bag 1 bag @ 1 MG/HR 2 mls/hr IV .Q24H [facility] Rx#:[id number] fentaNYL (PF). 1,000 mcg 121.793 75.705 In Sodium Chloride 0.9% 80 ml @ 0.5 MCG/KG/HR 4. 795 mls/hr IV .[id number] [facility] Rx#:[id number] propofoL 1,000 mg In 184.124 100 93.99 Empty Bag 1 bag @ Titrate IV .Q0M [facility] Rx#: [id number] Tube Feeding 374 408 102 Other 30 90 80 Output: Urine 555 655 130 Other: Voiding Method Indwelling Catheter Indwelling Catheter ABP, PAP, CO, CI - Last Documented Arterial Blood Pressure 135/50 - Exam GENERAL: elderly female currently with tracheostomy being mechanically ventilated and sedated. NECK: Tracheostomy tube in place. Oral feeding tube in place. LUNGS: Breath sounds coarse bilaterally and mechanically ventilated HEART: Regular rate and rhythm without murmurs, rubs or gallops.S1S2 Normal ABDOMEN: Soft, nontender, normoactive bowel sounds. No guarding, no rebound. No masses appreciated. EXTREMITIES:no pitting or edema. No clubbing or cyanosis. NEUROLOGICAL: Sedated SKIN: Warm, Dry, normal turgor, no rashes or lesions noted. - Labs CBC & Chem 7: 08/21/21 05:00 08/21/21 05:00 Labs: Abnormal Lab Results - Last 24 Hours (Table) 08/20/21 08/21/21 08/21/21 Range/Units 11:42 05:00 05:00 RBC 3.09 L (3.80-5.40) m/uL Hgb 9.7 L (11.4-16.0) gm/dL Hct 29.5 L (34.0-46.0) % ABG pO2 (83-108) mmHg ABG HCO3 (21-25) mmol/L ABG Total CO2 (19-24) mmol/L Chloride 112 H (98-107) mmol/L BUN 62 H (7-17) mg/dL Glucose 141 H (74-99) mg/dL POC Glucose (mg/dL) 181 H (75-99) mg/dL 08/21/21 Range/Units 06:00 RBC (3.80-5.40) m/uL Hgb (11.4-16.0) gm/dL Hct (34.0-46.0) % ABG pO2 65 L (83-108) mmHg ABG HCO3 31 H (21-25) mmol/L ABG Total CO2 32 H (19-24) mmol/L Chloride (98-107) mmol/L BUN (7-17) mg/dL Glucose (74-99) mg/dL POC Glucose (mg/dL) (75-99) mg/dL Assessment and Plan (1) Acute respiratory failure with hypoxia Current Visit: Yes Status: Acute Code(s): J96.01 - ACUTE RESPIRATORY FAILURE WITH HYPOXIA SNOMED Code(s): 09248901 (2) Pneumonia due to COVID-19 virus Current Visit: Yes Status: Acute Code(s): U07.1 - COVID-19; J12.82 - PNEUMONIA DUE TO CORONAVIRUS DISEASE 2019 SNOMED Code(s): 053279858747631972 (3) Hypoxia Current Visit: Yes Status: Acute Code(s): R09.02 - HYPOXEMIA SNOMED Code(s): 552011444 (4) Hypothyroidism, unspecified Current Visit: Yes Status: Acute Code(s): E03.9 - HYPOTHYROIDISM, UNSPECIFIED SNOMED Code(s): 92204034 (5) Mixed hyperlipidemia Current Visit: Yes Status: Acute Code(s): E78.2 - MIXED HYPERLIPIDEMIA SNOMED Code(s): 926956883 (6) Type 2 diabetes mellitus without complications Current Visit: Yes Status: Acute Code(s): E11.9 - TYPE 2 DIABETES MELLITUS WITHOUT COMPLICATIONS SNOMED Code(s): 361742578 Plan: I will defer to critical care/conduit helper while 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 She'll remain on her current medications. She'll continue on the current covid protocol, She is on current orders as reviewed. These include dexamethasone, Lovenox, pantoprazole, levothyroxine, insulin scale, Levemir daily at bedtime 10 units Weight on her upcoming PEG tube placement tomorrow morning. Trial of Dulcolax suppositories for the current obstipation She'll be reevaluated next 24 hours
[2021-08-21 12:22] LABS: Glucose,Whole Blood 171 mg/dL (75-99)
--- NOTE | 2021-08-21 12:27 | P.PN ---
Subjective Progress Note Date: 08/21/21 Principal diagnosis: Acute hypoxic resp. failure second to COVID-19 pneumonia 08/14/2021, the patient's condition remains essentially unchanged. She has post COVID 19 related pneumonia with secondary ARDS and her oxygenation has remained unchanged and her ventilator settings have been essentially remained stable over the past several days. This morning, the patient remains sedated and she is currently on propofol running at a rate of 45 mcg/kg per minute. The patient is not paralyzed at this point in time. We should be able to cut down her sedation to a lower level at this point. Meanwhile, we are still allowed permissive hypercapnia. She is on low tidal volume mechanical ventilation with a tidal volume of 325, rate of 26, PEEP is at 60 with an FiO2 of 90%. Peak airway pressures 33. Static pressures 31 and all of these numbers are comparable to yesterday. The blood gas showed a pH of 7.37 with a pCO2 of 60 and pO2 of 60. She remains on IV cefepime as the cultures Moraxella in her sputum. Her respiratory secretions are scant at this point in time. She is afebrile. She is hemodynamic is stable. She remains on Decadron. Her mother markers have improved specially the LDH. Her CRP was still elevated at 23 however this was also downtrending. She remains on enteral feeding for nutritional support. She is receiving vital AF and she is currently ongoing. Urine output is adequate. Overall fluid balance over the past 24 hours has been +457 mL. No signs of any significant: Overload. Noted the patient has been intubated on 08/05/2021 and her progress has been essentially minimal at this point in time. Unable to do any further weaning from mechanical ventilator due to her poor oxygenation status. Chest x-ray from yesterday was noted. A repeat chest x-ray will be done today. Rest of the blood work essentially stable. She remains on Levemir insulin 30 units in the morning and 10 units in the evening and she is also on a sliding scale insulin coverage. She is also on Lovenox 40 mg subcu for DVT prophylaxis. IV fluids are currently at KVO. Reevaluated today on 08/15/2021, patient remains in the ICU, intubated and mechanically ventilated. She is presently on assist control rate of 26, tidal volume of 325 FiO2 75% PEEP 16. ABG earlier on 90% showed a pO2 of 85 pCO2 of 80 pH of 7.28. Patient is on propofol at 25 g per acute per minute, off Nimbex for now, not requiring any pressors, hemodynamically parra patient is doing well. Patient is on enteral feeding using vital AF 23 mL per hour. Today I suggested adding fentanyl for adequate ventilation and control agitation as propofol alone does not seem to be enough unless we have to increase the dose. Patient had a sedation holiday yesterday, and not much of an improvement noted in the mental status, and the patient would not respond to any stimuli. I suggested today to start increasing the dose of propofol as she seems to be tachypneic and tachycardic, and if not enough, will add fentanyl. But try to avoid Nimbex if possible. Chest x-ray continues to show bilateral interstitial infiltrates. Lines and tubes seem to be in proper position. Labs today WBC count 15.7 hemoglobin 11.2 d-dimer is 1.2, electrodes are normal except for slightly elevated sodium of 145 bicarb is 35 BUN is 69 creatinine 0.93. LDH is 679 C- reactive protein is 26.6 months much of a change in the last few days in both inflammatory markers. Patient remains on the COVID-19 cocktail, she is also on cefepime. Lovenox 40 mg subcu daily. Patient had Moraxella growing out of her sputum on 08/13 and 08/05. Patient was reevaluated today on 08/16/2021, remains in the ICU, intubated and m echanically ventilated. Patient is on assist control rate of 26 tidal volume 325 PEEP of 16 FiO2 75%, ABG showed a pO2 of 73 pCO2 87 pH of 7.24 hence her respiratory rate was increased to 32. Patient remains on propofol at 50 fentanyl at 0.5 mcg/kg/h, she is not requiring Nimbex. Patient had a relatively elevated inflammatory markers including LDH of 766 and C-reactive protein of 18.7. Chest x-ray is not showing much of a change, continues to have bilateral interstitial infiltrates. WBC count showed the 15.7, hemoglobin 11.3 ID d-dimer is 1.12 Reevaluated today on 08/17/2021, patient remains in the ICU, intubated and mechanically ventilated. Patient is scheduled to undergo tracheostomy and PEG tube placement today. She is presently on assist control rate of 3 to tidal volume 325 FiO2 65% and PEEP of 16 she remains on fentanyl at 1 mcg/kg/h propofol at 20 mcg/kg/m patient is on enteral feeding but it is presently on hold for her tracheostomy and PEG tube placement. Chest x-ray continues to show diffuse pneumonic process/ARDS. ABG this morning on 50% showed a pO2 of 52 pCO2 of 72 pH of 7.32, hence FiO2 was increased up to 65%. CBC is relatively unremarkable, sodium is 146 renal profile showed a BUN of 89 creatinine of 1.15. LDH is 509 and C-reactive protein is 8.7. Reevaluated today on 08/18/2021, patient remains in the ICU, intubated and mechanically ventilated. Patient is on assist control rate of 3 to tidal volume 325 FiO2 70% PEEP of 16. ABG is marginal with a pO2 of 60 pCO2 of 70 pH of 7.32, hence no changes were made on her ventilator settings. Patient remains on a fall at 50 mcg/kg/m fentanyl 1 mcg/kg/h she is on D5 4500 mL per hour. CBC is relatively unremarkable hemoglobin is 10.1 electrolytes and renal profile are normal. Patient was seen by general surgery yesterday, and could not pass a scope to be able to perform at PEG tube placement. Hence the patient is scheduled today for tracheostomy, maybe PEG tube placement could be done today in the operating room. At any rate patient is not ready for any weaning, and apparently the family had no problem proceeding with tracheostomy and PEG tube placement. Her overall clinical status remains marginal at best. Reevaluated today on 08/19/2021, patient remains in the ICU, intubated and mecha nically ventilated. Patient is on assist control rate of 32, tidal volume 325 and today I have increased the volume to 400 mostly because of ongoing cough leak from the new tracheostomy she is on 90% FiO2, and PEEP of 16. Chest x-ray continues to show bilateral infiltrates, not much of a change. Patient underwent uneventful tracheostomy yesterday. Her ABG this morning showed a pO2 of 74 pCO2 of 63 pH of 7.35, and not much of a change on the ventilator settings except increasing the tidal volume up to 400. I did cut down her FiO2 to 70%, and instructed nursing to keep her O2 saturation between 89 and 91%. She is on propofol at 25 mcg/kg/m fentanyl 1 mcg/kg/h she is also on Nimbex, and on IV fluid 0.9 normal saline at 20 mL per hour. Patient is scheduled to have a PICC line today. And will DC the central line. After a PICC line placement. Patient remains on enteral feeding via orogastric tube, receiving vital AF and 31 mL per hour. Electrolytes and renal profile are normal today. Remains on the COVID-19 cocktail including ascorbic acid, she is also on Decadron 6 mg IV push daily, Lovenox 40 mg subcu daily, Protonix 40 mg daily IV push, zinc, patient is also on cefepime for underlying Moraxella catarrhalis pneumonia. Reevaluated today on 08/20/2021, patient remains in the ICU, intubated and mechanically ventilated. She is on assist control rate of 3 to tidal volume 400 FiO2 75% PEEP of 16. ABG showed a pO2 of 54 DC O2 of 45 pH of 7.46, hence The patient on FiO2 of 75%, and no other vent changes were made. Patient continues to have tracheostomy, she underwent tracheostomy on 08/17/21, minimal air leak noted from the tracheostomy, however seems to be improving, and she is achieving near her septal volumes. Patient is on fentanyl at 20 mcg/kg/h propofol 25 mc g/kg/m and she is on vital AF. Rate 34. Patient is not on any paralytics. Hence I would assess mental status hopefully today of or possibly a lower dose of sedation. CBC is relatively normal hemoglobin is 9.5. Electrolytes are normal, BUN is 64 creatinine 0.97. Patient is receiving enteral feeding. Remains on the COVID-19 cocktail including Decadron 6 mg IV push daily Lovenox 40 mg subcu daily Protonix 40 mg IV push daily and she is also on vitamin C. Remains on cefepime for underlying Moraxella catarrhalis pneumonia. Reevaluated today on 08/21/2021, patient remains in the ICU intubated and mechanically ventilated. She is on assist control rate of 30 tidal volume 400 FiO2 is at 80% and PEEP is at 16 after reviewing her ABG which showed a pO2 of 65 pCO2 45 pH of 7.44 I recommended decreasing FiO2 to 70%. Patient did not tolerate higher PEEP/18. Hence kept on a PEEP of 16. Patient remains on propofol at 20 fentanyl at 0.5, and she is not on Nimbex. Patient is arousable she opens her eyes only. But does not follow any other instructions. Her electrolytes are normal BUN is 62 creatinine 1.01 blood pressure seems to be high S1 as the patient has lower sedation and this was the dose of propofol goes down, hence I recommended adding clevidipine's to maintain adequate blood pressure hopefully 150 systolic. Chest x-ray continues to be about the same showing bilateral infiltrates. Medications list reviewed patient is on albuterol HFA, vitamin C, cefepime 1 g every 12 hours, she is on Peridex, vitamin D, Celebrex was added today, Decadron 6 mg IV push daily NovoLog insulin and Levemir insulin. Levothyroxine 100 g daily Protonix 40 mg IV push daily and she is on zinc. Objective - Vital Signs Vital signs: Vital Signs Temp 98.3 F 08/21/21 00:00 Pulse 70 08/21/21 09:00 Resp 32 H 08/21/21 09:00 BP 128/63 08/20/21 16:00 Pulse Ox 96 08/21/21 09:00 Intake & Output 08/20/21 08/21/21 08/21/21 18:59 06:59 18:59 Intake Total 7507.577 5913.705 384.643 Output Total 555 655 130 Balance 460.917 354.705 254.643 Weight 98 kg Intake: IV 306 336 69 Cefepime 2 gm In Sodium 100 100 Chloride 0.9% 100 ml @ 25 mls/hr IVPB Q12H [facility] Rx# :[id number] Pressure bag 36 36 9 Sodium Chloride 0.9% 1, 170 200 60 000 ml @ 20 mls/hr IV . Q24H [facility] Rx#:[id number] Intake, IV Titration 305.917 175.705 133.643 Amount Clevidipine Butyrate 25 1.433 mg In Empty Bag 1 bag @ 1 MG/HR 2 mls/hr IV .Q24H [facility] Rx#:[id number] fentaNYL (PF). 1,000 mcg 121.793 75.705 In Sodium Chloride 0.9% 80 ml @ 0.5 MCG/KG/HR 4. 795 mls/hr IV .[id number] [facility] Rx#:[id number] propofoL 1,000 mg In 184.124 100 132.21 Empty Bag 1 bag @ Titrate IV .Q0M [facility] Rx#: [id number] Tube Feeding 374 408 102 Other 30 90 80 Output: Urine 555 655 130 Other: Voiding Method Indwelling Catheter Indwelling Catheter ABP, PAP, CO, CI - Last Documented Arterial Blood Pressure 135/50 - Exam Physical Exam: Revealed a 76-year-old female sedated, on 20 mcg/kg/m of propofol,, and on fentanyl. 0.5 mcg/kg/h intubated, in no distress. Tracheostomy is intact. Head: Atraumatic, normocephalic. Orogastric tube is intact. HEENT:[Neck is supple.] [No neck masses.] [No thyromegaly.] [No JVD.] Chest: [Zenaida at the bases no rhonchi and no wheezes. Cardiac Exam: Distant S1 and S2, no S3 gallop. Abdomen: [Obese, Soft, nontender, no megaly, no rebound, no guarding, normal bowel sounds.] Extremities: [No clubbing, 1+ bipedal edema, no cyanosis.] Neurological Exam: Opens eyes only but does not respond to any other stimuli. Patient had the same responses yesterday off sedation and as soon as the sedation goes down any further the patient develops extremely elevated blood pressure. Psychiatric: Could not assess. Skin: No rashes. - Labs CBC & Chem 7: 08/21/21 05:00 08/21/21 05:00 Labs: Abnormal Lab Results - Last 24 Hours (Table) 08/21/21 08/21/21 08/21/21 Range/Units 05:00 05:00 06:00 RBC 3.09 L (3.80-5.40) m/uL Hgb 9.7 L (11.4-16.0) gm/dL Hct 29.5 L (34.0-46.0) % ABG pO2 65 L (83-108) mmHg ABG HCO3 31 H (21-25) mmol/L ABG Total CO2 32 H (19-24) mmol/L Chloride 112 H (98-107) mmol/L BUN 62 H (7-17) mg/dL Glucose 141 H (74-99) mg/dL Assessment and Plan Assessment: Impression: Acute hypoxic respiratory failure secondary to COVID-19 pneumonia, patient was on baricitinib and this was discontinued because of the Moraxella infection noted. Patient was intubated on 08/05 with minimal improvement since intubation. Possible superimposed Moraxella catarrhalis pneumonia based on positive sputum cultures and the patient remains on cefepime. ARDS secondary to COVID-19 pneumonia Elevated inflammatory markers second to COVID-19 pneumonia Benign essential hypertension Suspect metabolic encephalopathy secondary to COVID-19 pneumonia Dyslipidemia Type 2 diabetes History of hypothyroidism Status post tracheostomy on 07/19/2021, however attempts failed to place a PEG tube in this patient. 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 Recommendations: Continue ventilatory support , patient is now on assist control rate of 30 tidal volume 400 FiO2 80% bicarb is down to 70% and PEEP remains at 16. Patient had a PICC line placed yesterday and her central line was discontinued. Continue enteral feeding patient is receiving vital AF at 31 mL/hr Continue COVID-19 cocktail Continue Decadron. Keep patient off baricitinib Continue IV cefepime for her presumed Moraxella catarrhalis pneumonia Patient remains critically ill. Daily assessment of mental status, try to avoid Nimbex if possible. Added Cleviprex for elevated blood pressure. Prognosis remains poor and guarded. Critical care time is over 30 minutes. Time with Patient: Greater than 30
[2021-08-21 17:49] LABS: Glucose,Whole Blood 144 mg/dL (75-99)
[2021-08-21 17:49] LABS: Glucose,Whole Blood 139 mg/dL (75-99)
[2021-08-21 17:49] LABS: Glucose,Whole Blood 137 mg/dL (75-99)
[2021-08-21 18:06] LABS: Glucose,Whole Blood 167 mg/dL (75-99)
[2021-08-22] MEDS: INSULIN ASPART (NovoLOG) 100 UNIT/ML VIAL SQ SCH ×4 (00:28→18:10)
[2021-08-22] MEDS: fentaNYL (PF). 1,000 MCG in SODIUM CHLORIDE 0.9% 80 ML IV SCH ×2 (00:29→16:39)
[2021-08-22 00:40] LABS: Glucose,Whole Blood 134 mg/dL (75-99)
[2021-08-22] MEDS: ALBUTEROL HFA INHALER INHALATION SCH ×6 (04:43→23:27)
[2021-08-22 05:03] LABS: HGB 9.7 gm/dL (11.4-16.0); Hypochromasia Slight; MCH 31.4 pg (25.0-35.0); MCHC 32.4 g/dL (31.0-37.0); MCV 97.1 fL (80.0-100.0); Platelet Count 175 k/uL (150-450); RBC 3.09 m/uL (3.80-5.40); RDW 14.8 % (11.5-15.5); WBC 7.1 k/uL (3.8-10.6)
[2021-08-22 05:32] LABS: Calcium 9.3 mg/dL (8.4-10.2); Potassium 4.3 mmol/L (3.5-5.1)
[2021-08-22 06:03] LABS: ABG Base Excess 4.8 mmol/L; ABG HCO3 30 mmol/L (21-25); ABG Oxygen Saturation 95.1 % (94-97); ABG PCO2 48 mmHg (35-45); ABG PO2 71 mmHg (83-108); ABG TCO2 31 mmol/L (19-24); Allen Test Performed? Yes
[2021-08-22 06:21] LABS: Glucose,Whole Blood 98 mg/dL (75-99)
[2021-08-22] MEDS: LEVOTHYROXINE 100 MCG TAB OG-TUBE SCH (06:29)
--- NOTE | 2021-08-22 08:10 | XR ---
EXAMINATION TYPE: XR chest 1V portable DATE OF EXAM: 08/22/2021 COMPARISON: Chest x-ray 08/21/2021 HISTORY: Covid, pneumonia, tracheostomy tube TECHNIQUE: Single frontal view of the chest is obtained. FINDINGS: Tracheostomy tube is overlying the tracheal air column, there is a left-sided PICC line, d istal tip is overlying the cavoatrial junction level. There is no evident pneumothorax or pleural eff usion, bilateral airspace disease is present as on prior. Cardiac mediastinal sweat shows a similar a ppearance. There are overlying artifacts. IMPRESSION: Correlate for pneumonia, ARDS, edema
[2021-08-22] MEDS: SODIUM CHLORIDE 0.9% 1,000 ML IV SCH (08:49)
[2021-08-22] MEDS: DEXAMETHASONE SOD PHOSPHATE 10 MG/ML 1 ML VIAL IVP SCH (08:50)
[2021-08-22] MEDS: CHOLECALCIFEROL 125 MCG (5000 IU) TABLET PO SCH (08:50)
[2021-08-22] MEDS: ASCORBIC ACID 500 MG TAB PO SCH (08:50)
[2021-08-22] MEDS: INSULIN DETEMIR (LEVEMIR) 100 UNIT/ML SYR SQ SCH ×2 (08:50→21:09)
[2021-08-22] MEDS: CHLORHEXIDINE GLUCONATE 15 ML CUP MUCOUS MEM SCH ×2 (08:50→21:09)
[2021-08-22] MEDS: ENOXAPARIN 40 MG/0.4 ML SYRINGE SQ SCH ×2 (08:51→09:23)
[2021-08-22] MEDS: PANTOPRAZOLE 40 MG/10 ML VIAL IVP SCH (08:51)
[2021-08-22] MEDS: ZINC SULFATE 220 MG CAP PO SCH (08:51)
[2021-08-22] MEDS ORDERED: IV FLUID CONTINUATION 1,000 ML IV ONE (10:00)
[2021-08-22] MEDS ORDERED: CISATRACURIUM 2 MG/ML 5 ML VIAL IV ONE ×2 (10:17)
--- NOTE | 2021-08-22 10:59 | P.OP ---
Date of Procedure: 08/22/21 Preoperative Diagnosis: Malnutrition Postoperative Diagnosis: Malnutrition Procedure(s) Performed: EGD with PEG tube placement Anesthesia: MAC Surgeon: Marcel Arechiga Pathology: none sent Condition: stable Disposition: PACU Description of Procedure: Patient's placed on her head in the supine position. She received IV sedation. The patient was on the ventilator. The gastroscope was oropharynx passed in the esophagus and stomach. The stomach was insufflated air. A suitable light reflux seen the anterior abdominal wall. The skin was anesthetized 1% local Xylocaine. Then a skin incision was made 11 blade. The needles placed into the stomach under direct visualization. The needle was then snared. The wires patient. Wire was then snared brought the oropharynx. The PEG tube was cut to the wire. Brought down into the stomach. The one-piece bolster was secured at the 3 cm carl. Patient tolerated procedure well and sent to recovery in stable condition.
[2021-08-22 11:52] LABS: Glucose,Whole Blood 122 mg/dL (75-99)
--- NOTE | 2021-08-22 13:07 | P.PN ---
Subjective Progress Note Date: 08/22/21 Principal diagnosis: Respiratory failure. This is a 76-year-old female seen in the emergency room, on August 04. She came in with complaints of shortness of breath and difficulty breathing. In addition, she had cough, chest congestion, generalized weakness, lightheadedness, his been sick for about a month or so. She apparently tested positive for coronavirus on July 30. Currently, she is on BiPAP, with settings of 15/5 and 100%. She's getting saline at 80 mL an hour. She has a history of hyperlipidemia, diabetes, hypertension, and hypothyroidism. White count 17, hemoglobin 13.7, hematocrit 40.6, and platelet count 133,000. D-dimer was 0.97. Sodium 133, potassium 4, chlorides 100, CO2 24, anion gap 9, BUN 18, creatinine 0.6. LDH was 1477 and C-reactive protein was 15.9. Chest x-ray showed elevation of the right diaphragm, and diffuse bilateral airspace disease consistent with coronavirus pneumonia. On today's evaluation on 08/06/2021 patient is seen in the intensive care unit. Patient was admitted on 08/04/2021 with symptoms of COVID-19 ammonia that have been present for about a month's, patient had a positive home test on 07/30/2021. Patient's hypoxia and dyspnea has significantly progressed, and intubated on 08/05/2021. While she is sedated and intubated on assist control mode of ventilation with a rate of 26, tidal volume is 400, FiO2 of 90% and PEEP of 15, this morning's blood gas shows pO2 of 78, pCO2 of 40, and pH of 7.41. This was done on FiO2 of 100% and FiO2 had since been dropped down to 90%. Patient is maintaining O2 saturations between 96-98%. Peak airway pressure is 34, plateau pressure is 31. Currently on 0.9 at 80 ML per hour, Diprivan is at 30 mics per kilo per minute, Nimbex is at 2 mics per kilo per minute. Today's chest x-ray shows bilateral multifocal and confluent opacities consistent with COVID-19 pneumonia. Today's labs have been reviewed, white blood cell count is improving and is down to 15.4, hemoglobin is 12.3, serum sodium is improved and is up to 135 compared to 129 on admission, potassium is 4.1, BUN is 21 creatinine is 0.78 yesterday's LFTs have been reviewed and AST was 122, ALT is 74, applying phosphatases 83, LDH was 1477, and CRP was 15.9 proBNP was within normal limits at 181 bronchial Eleanor level was 0.48, borderline, sputum cultures have been sent and showed few PMNs, many gram-negative diplococci. Final culture is pending. Blood culturef show no growth thus far. No dy namically patient is slightly bradycardic in the sinus mechanism with a rate of 51, blood pressure is 102/57, she was slightly hypotensive she was given a liter bolus this morning, she is getting another liter bolus infusing right now for low urine output. Patient is currently receiving Decadron 6 mg daily, she is on Baricitinib, Lovenox 40 mg daily, and COVID-19 vitamins. [facility] was 0.97. Progress note dated 08/07/2021. 76-year-old female, again seen in the intensive care unit, room 252. She remains on the mechanical ventilator. The patient was intubated on August 05 for respiratory failure. She is on the volume assist control mode, rate 26, tidal volume 400, FiO2 80%, and PEEP of 15. Blood gases show a PaO2 of 68, pCO2 45, and a pH of 7.34. She is on propofol at 40 mcg/kg/m, Nimbex at 1.5 mcg/kg/m, saline at 80 mL an hour, and vital AF at 29 mL an hour, which is goal. White count 15.5, hemoglobin 12, hematocrit 35.6, platelet count 119,000. D- dimer is 0.75. Fibrinogen level DCXII. Sodium 138, potassium 3.8, chlorides 110, CO2 23, anion gap 5, BUN 19, creatinine 0.72. LDH is 847. C-reactive protein is 18.7, and her TSH is 8.370. Chest x-ray shows diffuse bilateral infiltrates. Reevaluated today on 08/18/2021, patient remains in the ICU, intubated and mechanically ventilated. Patient is on assist control rate of 3 to tidal volume 325 FiO2 70% PEEP of 16. ABG is marginal with a pO2 of 60 pCO2 of 70 pH of 7.32, hence no changes were made on her ventilator settings. Patient remains on a fall at 50 mcg/kg/m fentanyl 1 mcg/kg/h she is on D5 4500 mL per hour. CBC is relatively unremarkable hemoglobin is 10.1 electrolytes and renal profile are normal. Patient was seen by general surgery yesterday, and could not pass a scope to be able to perform at PEG tube placement. Hence the patient is scheduled today for tracheostomy, maybe PEG tube placement could be done today in the operating room. At any rate patient is not ready for any weaning, and apparently the family had no problem proceeding with tracheostomy and PEG tube placement. Her overall clinical status remains marginal at best. Reevaluated today on 08/19/2021, patient remains in the ICU, intubated and mechanically ventilated. Patient is on assist control rate of 32, tidal volume 325 and today I have increased the volume to 400 mostly because of ongoing cough leak from the new tracheostomy she is on 90% FiO2, and PEEP of 16. Chest x-ray continues to show bilateral infiltrates, not much of a change. Patient underwent uneventful tracheostomy yesterday. Her ABG this morning showed a pO2 of 74 pCO2 of 63 pH of 7.35, and not much of a change on the ventilator settings except increasing the tidal volume up to 400. I did cut down her FiO2 to 70%, and instructed nursing to keep her O2 saturation between 89 and 91%. She is on propofol at 25 mcg/kg/m fentanyl 1 mcg/kg/h she is also on Nimbex, and on IV fluid 0.9 normal saline at 20 mL per hour. Patient is scheduled to have a PICC line today. And will DC the central line. After a PICC line placement. Patient remains on enteral feeding via orogastric tube, receiving vital AF and 31 mL per hour. Electrolytes and renal profile are normal today. Remains on the COVID-19 cocktail including ascorbic acid, she is also on Decadron 6 mg IV push daily, Lovenox 40 mg subcu daily, Protonix 40 mg daily IV push, zinc, patient is also on cefepime for underlying Moraxella catarrhalis pneumonia. Reevaluated today on 08/20/2021, patient remains in the ICU, intubated and mechanically ventilated. She is on assist control rate of 3 to tidal volume 400 FiO2 75% PEEP of 16. ABG showed a pO2 of 54 DC O2 of 45 pH of 7.46, hence The patient on FiO2 of 75%, and no other vent changes were made. Patient continues to have tracheostomy, she underwent tracheostomy on 08/17/21, minimal air leak noted from the tracheostomy, however seems to be improving, and she is achieving near her septal volumes. Patient is on fentanyl at 20 mcg/kg/h propofol 25 mcg/kg/m and she is on vital AF. Rate 34. Patient is not on any paralytics. Hence I would assess mental status hopefully today of or possibly a lower dose of sedation. CBC is relatively normal hemoglobin is 9.5. Electrolytes are normal, BUN is 64 creatinine 0.97. Patient is receiving enteral feeding. Remains on the COVID-19 cocktail including Decadron 6 mg IV push daily Lovenox 40 mg subcu daily Protonix 40 mg IV push daily and she is also on vitamin C. Remains on cefepime for underlying Moraxella catarrhalis pneumonia. Reevaluated today on 08/21/2021, patient remains in the ICU intubated and mechanically ventilated. She is on assist control rate of 30 tidal volume 400 FiO2 is at 80% and PEEP is at 16 after reviewing her ABG which showed a pO2 of 65 pCO2 45 pH of 7.44 I recommended decreasing FiO2 to 70%. Patient did not tolerate higher PEEP/18. Hence kept on a PEEP of 16. Patient remains on propofol at 20 fentanyl at 0.5, and she is not on Nimbex. Patient is arousable she opens her eyes only. But does not follow any other instructions. Her electrolytes are normal BUN is 62 creatinine 1.01 blood pressure seems to be high S1 as the patient has lower sedation and this was the dose of propofol goes down, hence I recommended adding clevidipine's to maintain adequate blood pressure hopefully 150 systolic. Chest x-ray continues to be about the same showing bilateral infiltrates. Medications list reviewed patient is on albuter ol HFA, vitamin C, cefepime 1 g every 12 hours, she is on Peridex, vitamin D, Celebrex was added today, Decadron 6 mg IV push daily NovoLog insulin and Levemir insulin. Levothyroxine 100 g daily Protonix 40 mg IV push daily and she is on zinc. Progress note dated 08/22/2021. This is a 76-year-old female who was admitted back on August 04. She was admitted with a diagnosis of coronavirus associated pneumonia. She came to the intensive care unit on August 05. She was intubated on August 05. The patient had a tracheostomy tube inserted on August 18, and will hopefully have a PEG tube placed on August 22. Patient remains on the mechanical ventilator. She is on the volume assist control mode, rate 32, tidal volume 400, FiO2 80%, and PEEP of 16. The patient's blood gases show pO2 70, pCO2 48, and a pH is 7.39. The patient's on propofol at 25 mcg/kg/m, saline at 20 mL an hour, fentanyl at 0.5 mcg/kg/h, tube feedings which are on hold, and vital AF at 34 mL an hour. That is goal. Current white count of 7.1, hemoglobin 9.7, hematocrit 30, and platelet count 175,000. Sodium 141, potassium 4.3, chlorides 111, CO2 28, anion gap 2, BUN 64, and creatinine 0.96. Sputum sampling on August 13 and on August 05, show evidence of Moraxella catarrhalis. Chest x-ray on August 22, show diffuse bilateral infiltrates, which are essentially unchanged. Objective - Vital Signs Vital signs: Vital Signs Temp 98.0 F 08/22/21 12:00 Pulse 60 08/22/21 12:00 Resp 32 H 08/22/21 12:00 BP 128/63 08/22/21 12:00 Pulse Ox 85 L 08/22/21 12:00 Intake & Output 08/21/21 08/22/21 08/22/21 18:59 06:59 18:59 Intake Total 1164.708 754.15 263 Output Total 570 740 270 Balance 594.708 14.15 -7 Weight 101.7 kg 98 kg Intake: IV 376 336 163 Cefepime 2 gm In Sodium 100 100 Chloride 0.9% 100 ml @ 25 mls/hr IVPB Q12H [facility] Rx# :[id number] Pressure bag 36 36 18 Sodium Chloride 0.9% 1, 240 200 120 000 ml @ 20 mls/hr IV . Q24H [facility] Rx#:[id number] Intake, IV Titration 240.708 86.15 Amount Clevidipine Butyrate 25 1.433 mg In Empty Bag 1 bag @ 1 MG/HR 2 mls/hr IV .Q24H [facility] Rx#:[id number] fentaNYL (PF). 1,000 mcg 86.15 In Sodium Chloride 0.9% 80 ml @ 0.5 MCG/KG/HR 4. 795 mls/hr IV .[id number] [facility] Rx#:[id number] propofoL 1,000 mg In 239.275 Empty Bag 1 bag @ Titrate IV .Q0M [facility] Rx#: [id number] Tube Feeding 408 272 0 Other 140 60 100 Output: Urine 570 740 270 Other: Voiding Method Indwelling Catheter Indwelling Catheter Indwelling Catheter ABP, PAP, CO, CI - Last Documented Arterial Blood Pressure 136/53 - Exam No acute distress, sedated and with a midline tracheostomy tube. HEENT examination is grossly unremarkable. Neck supple. Full range of motion. No adenopathy thyromegaly or neck vein distention. Cardiovascular examination reveals regular rhythm rate. S1-S2 normal. No S3 or S4. No discernible murmur noted. Heart sounds are distant. Heart rate 60 bpm. Lungs reveal use bilateral rhonchi. No wheezes or crackles. Breath sounds equal. Saturations 90%. Abdomen soft bowel sounds are heard. No masses or tenderness. Extremities are intact. No cyanosis clubbing or edema. Skin is without rash or lesion. Neurologic examination cannot be adequately assessed as the patient's currently sedated. - Labs CBC & Chem 7: 08/22/21 04:35 08/22/21 04:35 Labs: Abnormal Lab Results - Last 24 Hours (Table) 08/20/21 08/21/21 08/21/21 Range/Units 18:52 00:05 04:57 RBC (3.80-5.40) m/uL Hgb (11.4-16.0) gm/dL Hct (34.0-46.0) % ABG pCO2 (35-45) mmHg ABG pO2 (83-108) mmHg ABG HCO3 (21-25) mmol/L ABG Total CO2 (19-24) mmol/L Chloride (98-107) mmol/L BUN (7-17) mg/dL Glucose (74-99) mg/dL POC Glucose (mg/dL) 139 H 137 H 144 H (75-99) mg/dL 08/21/21 08/22/21 08/22/21 Range/Units 17:45 00:19 04:35 RBC 3.09 L (3.80-5.40) m/uL Hgb 9.7 L (11.4-16.0) gm/dL Hct 30.0 L (34.0-46.0) % ABG pCO2 (35-45) mmHg ABG pO2 (83-108) mmHg ABG HCO3 (21-25) mmol/L ABG Total CO2 (19-24) mmol/L Chloride (98-107) mmol/L BUN (7-17) mg/dL Glucose (74-99) mg/dL POC Glucose (mg/dL) 167 H 134 H (75-99) mg/dL 08/22/21 08/22/21 08/22/21 Range/Units 04:35 05:59 11:50 RBC (3.80-5.40) m/uL Hgb (11.4-16.0) gm/dL Hct (34.0-46.0) % ABG pCO2 48 H (35-45) mmHg ABG pO2 71 L (83-108) mmHg ABG HCO3 30 H (21-25) mmol/L ABG Total CO2 31 H (19-24) mmol/L Chloride 111 H (98-107) mmol/L BUN 64 H (7-17) mg/dL Glucose 117 H (74-99) mg/dL POC Glucose (mg/dL) 122 H (75-99) mg/dL Assessment and Plan Assessment: Acute hypoxemic respiratory failure secondary to coronavirus associated pneumonia, status post intubation and mechanical ventilation on 08/05/2021, and tracheostomy, on August 18, with anticipated PEG tube placement on August 22. Acute respiratory distress syndrome secondary to coronavirus associated pneumonia. Elevated inflammatory marker secondary to coronavirus infection. Moraxella catarrhalis pneumonia. Metabolic encephalopathy. History of essential hypertension. Negative for DVT of the bilateral lower extremities. History of hyperlipidemia. History of diabetes mellitus. History of hypothyroidism, not well controlled. Plan: Plan dated 08/05/2021. The patient's on vitamin C, vitamin D3, and zinc. In addition, the patient's getting Decadron 6 mg a day, and Lovenox 40 mg subcu daily. We also added GOLDEN to the patient's regimen. The patient may end up requiring intubation and mechanical ventilation. She is quite ill, and she is hypoxemic despite being on BiPAP at 100%. Additional recommendations and suggestions are forthcoming. Prognosis is guarded. We will continue to follow make recommendations where appropriate. Plan dated 08/07/2021. The patient remains on appropriate medications including vitamin C, vitamin D3, and zinc. In addition, the patient is getting level thyroxine 100 g daily down the NG tube. The patient remains on Lovenox 40 mg a day, and Decadron 6 mg a day. She also is getting GOLDEN, 4 mg a day. We will continue to follow make recommendations were appropriate. Prognosis is guarded. Her PEEP was increased to 20 cm water, in an attempt to reduce the FiO2. Additional recommendations and suggestions are forthcoming. Plan dated 08/22/2021. The patient's PEEP was increased from 16 to 20. We will attempt to wean the FiO2. We'll DC the cefepime. She remains on propofol and fentanyl. She will resume tube feedings, once the PEG tube has been inserted. Additional recommendations and suggestions are forthcoming. Prognosis is guarded. We will continue to follow make recommendations where appropriate. The patient should have a PEG tube inserted today. Medications are reviewed. X-ray and labs are reviewed. Time with Patient: Greater than 30
[2021-08-22] MEDS: CLEVIDIPINE BUTYRATE 25 MG in EMPTY BAG 1 BAG IV SCH (15:16)
--- NOTE | 2021-08-22 15:40 | P.PN ---
Subjective Progress Note Date: 08/22/21 This is a 76-year-old female who presented to emergency room with cough, congestion, dyspnea and weakness and fatigue over several weeks. Approximately week ago patient took a home Covid test which indicated that she was positive. She has not received Covid vaccine or treatment for the positive Covid test. When symptoms worsened she decided to present to the ER for evaluation and treatment. She was initially placed on BiPAP in the intensive care unit and subsequently been intubated. She is currently paralyzed with cisatracurium, sedated with propofol and utilizing Toradol IV push for pain management. Currently mechanically ventilated on 80% FiO2. Patient is afebrile 96.9, respiratory rate of 26, blood pressure is stable at 109/51, maintain oxygen saturation of 90% and entitle CO2 of 28. Most recent set of vital signs WC count of 15.5, hematocrit of 35.6, hemoglobin 12.0, platelet count 119. Chemistry panel reveals a sodium 138, potassium 3.8, BUN of 19, creatinine 0.72, GFR 83, AST of 99, ELT 106, alk phos 131, LDH 847. TSH of 8.37. T4 0.5, pro- calcitonin 0.34 08/08/2021 remains mechanical ventilator-dependent, FiO2 decreased to 65%, PEEP remains at 20. Continues on Nimbex and diprovan drips. Chest x-ray reported patchy bilateral infiltrate with diffuse interstitial pattern, tiny right-sided pleural effusion, received Lasix. Maintained on Rocephin (Moraxella catarrhalis in the sputum) , Covid cocktail with Baricitinib discontinued. Blood sugars elevated. Afebrile, WBC 13.3. Pro-calcitonin 0.34. 08/09/2021 continues on FiO2 65% with PEEP of 20, Nimbex and diprovan drips. Chest x-ray reporting persistent patchy bilateral infiltrate with diffuse interstitial pattern. Received additional Lasix today Blood sugars elevated, improving, A1c 8.4. Afebrile, WBC 14.3. D-dimer 0.77, ferritin increased to 2512, LDH decreased to 606, CRP increased to 21.2. LFTs decreasing with the exception of alkaline phosphatase, increased to 171. ProBNP 453. Receiving tube feeds to call, tolerating well with minimal to no residuals, stooling. 08/10/2021 remains vent dependent, FiO2 60%/+18 of PEEP. Maintained on Nimbex and diprovan drips. Chest x-ray noted, unchanged. Currently afebrile, T-max 99.1, WBC trending down, 12.7. BUN 24, and 0.74. Repeat pro-calcitonin 0.31. Additional Levemir added to med regimen yesterday, Blood sugars controlled. Received Lasix IV push yesterday again, diuresed well with 24-hour I&O reflecting a negative fluid balance. Sodium within normal limits, 142. 08/11/2021 yesterday patient of placed on Nimbex holiday, during the night unable to tolerate became asynchronous with the ventNimbex resumed. Diprovan drip continues. Maintained on FiO2 65% with PEEP decreased to 17. Maintained on Rocephin ,Covid cocktail. Chest x-ray reporting stable diffuse bilateral infiltrate. Inflammatory markers decreasing.Tolerating tube feeds minimal to no residual. Levemir increased yesterday with blood sugars controlled. Afebrile. 08/12/2021 patient was given another paralytic holiday yesterday and continues off of Nimbex. During the night, difficulty maintaining O2 sats, cuff leak discovered, required higher FiO2. Maintained on diprovan. Currently FIO2 90%, PEEP of 16. Chest x-ray reporting bilateral moderate pulmonary edema, possibly worsening, antibiotics adjusted, now on cefepime. Maintained on Covid cocktail. Blood sugars controlled. Renal function stable. 08/15/2021 remains vent dependent, FiO2 75%/+16 of PEEP. Maintained on diprovan and fentanyl drips. Currently off paralytics. Sedation holiday attempted yesterday with minimal improvement of mental status, no response to any stimuli reported. Chest x-ray reporting persistent bilateral airspace disease. Continues on cefepime. Tolerating tube feeds at goal, with minimal to no residuals, blood sugars controlled. Inflammatory markers mildly increased. 08/16/2021 remains vent dependent, FiO2 65%/+16 of PEEP. Chest x-ray reporting diffuse interstitial and alveolar infiltrates. Maintained on diprovan and fentanyl drips. [employer] currently discussing treatment of trach and peg with family. T-max 99.1, WBC 15.7. D-dimer, CRP decreased, LDH increased. 08/17/2021 vent dependent, FiO2 50%/+16 of PEEP. Chest x-ray reporting diffuse interstitial and alveolar infiltrates. Tube feeds and lovenox on hold. Maintained on IV fluid hydration D5/45. Scheduled for trach and peg today. T-max 99.7, WBC 13.5. Creatinine increased up to 1.15. 08/18/2021 Remains vent dependent, FiO2 70+16 of PEEP.Maintained on diprovan, fentanyl. PEG tube attempted yesterday, surgeon unable to pass scope. Patient is scheduled for tracheostomy and potential PEG tube placement today. 08/19/2021 Tracheostomy placed yesterday. Cuff leak present, TV increased. Maintained on 90% FiO2/+16 of PEEP. Chest x-ray reporting bilateral infiltrates.Continues on Nimbex, fentanyl and diprovan. PICC line placed. Tolerating tube feeds via OG of vital AF at goal of 31ml per hour. Sodium normalized, renal function stable. Blood sugars better controlled. 08/22/2021 scheduled for PEG tube placement today. Vent dependent FiO2 80%/PEEP +20. Chest x-ray reporting unchanged bilateral airspace disease. Maintained on fentanyl and diprovan drips. Afebrile, normal WBC. BUN 64, creatinine 0.96. Blood sugars controlled. Objective - Vital Signs Vital signs: Vital Signs Temp 98.0 F 08/22/21 12:00 Pulse 62 08/22/21 14:00 Resp 28 H 08/22/21 14:00 BP 128/63 08/22/21 14:00 Pulse Ox 92 L 08/22/21 14:00 Intake & Output 08/21/21 08/22/21 08/22/21 18:59 06:59 18:59 Intake Total 1164.708 854.15 377.845 Output Total 570 740 360 Balance 594.708 114.15 17.845 Weight 101.7 kg 98 kg Intake: IV 376 336 209 Cefepime 2 gm In Sodium 100 100 Chloride 0.9% 100 ml @ 25 mls/hr IVPB Q12H [facility] Rx# :[id number] Pressure bag 36 36 24 Sodium Chloride 0.9% 1, 240 200 160 000 ml @ 20 mls/hr IV . Q24H [facility] Rx#:[id number] Intake, IV Titration 240.708 186.15 68.845 Amount Clevidipine Butyrate 25 1.433 mg In Empty Bag 1 bag @ 1 MG/HR 2 mls/hr IV .Q24H [facility] Rx#:[id number] fentaNYL (PF). 1,000 mcg 86.15 In Sodium Chloride 0.9% 80 ml @ 0.5 MCG/KG/HR 4. 795 mls/hr IV .[id number] [facility] Rx#:[id number] propofoL 1,000 mg In 239.275 100 68.845 Empty Bag 1 bag @ Titrate IV .Q0M [facility] Rx#: [id number] Tube Feeding 408 272 0 Other 140 60 100 Output: Urine 570 740 360 Other: Voiding Method Indwelling Catheter Indwelling Catheter Indwelling Catheter ABP, PAP, CO, CI - Last Documented Arterial Blood Pressure 106/49 - Exam - Exam: limited Exam r/t to COVID GENERAL: intubated, sedated, NAD Lungs: Mechanically ventilated Heart: Regular rate and rhythm per home health travel pt Abdomen: Soft, nondistended Extremities: No edema Neurological: Sedated - Labs CBC & Chem 7: 08/22/21 04:35 08/22/21 04:35 Labs: Abnormal Lab Results - Last 24 Hours (Table) 08/20/21 08/21/21 08/21/21 Range/Units 18:52 00:05 04:57 RBC (3.80-5.40) m/uL Hgb (11.4-16.0) gm/dL Hct (34.0-46.0) % ABG pCO2 (35-45) mmHg ABG pO2 (83-108) mmHg ABG HCO3 (21-25) mmol/L ABG Total CO2 (19-24) mmol/L Chloride (98-107) mmol/L BUN (7-17) mg/dL Glucose (74-99) mg/dL POC Glucose (mg/dL) 139 H 137 H 144 H (75-99) mg/dL 08/21/21 08/22/21 08/22/21 Range/Units 17:45 00:19 04:35 RBC 3.09 L (3.80-5.40) m/uL Hgb 9.7 L (11.4-16.0) gm/dL Hct 30.0 L (34.0-46.0) % ABG pCO2 (35-45) mmHg ABG pO2 (83-108) mmHg ABG HCO3 (21-25) mmol/L ABG Total CO2 (19-24) mmol/L Chloride (98-107) mmol/L BUN (7-17) mg/dL Glucose (74-99) mg/dL POC Glucose (mg/dL) 167 H 134 H (75-99) mg/dL 08/22/21 08/22/21 08/22/21 Range/Units 04:35 05:59 11:50 RBC (3.80-5.40) m/uL Hgb (11.4-16.0) gm/dL Hct (34.0-46.0) % ABG pCO2 48 H (35-45) mmHg ABG pO2 71 L (83-108) mmHg ABG HCO3 30 H (21-25) mmol/L ABG Total CO2 31 H (19-24) mmol/L Chloride 111 H (98-107) mmol/L BUN 64 H (7-17) mg/dL Glucose 117 H (74-99) mg/dL POC Glucose (mg/dL) 122 H (75-99) mg/dL Assessment and Plan Assessment: Acute Covid pneumonia, sputum culture reporting Moraxella Catarrhalis Acute hypoxic respiratory failure secondary to the above, mechanical ventilator dependent, status post tracheostomy placement ARDS secondary to acute COVID-19 pneumonia Diabetes mellitus type 2, hyperglycemic, hemoglobin A1c 8.4 Hypothyroidism Essential hypertension Hyperlipidemia Metabolic encephalopathy, multifactorial, secondary to all the above Plan: Continue on current medication regime ,monitoring and symptomatic treatment. PEG tube placement pending .Covid cocktail, ICU management as per director of quality control. Prognosis poor related to multiple complex medical issues. The impression and plan of care has been dictated as directed. : I performed a history and examination of this patient, discussed the same with the dictator. I agree with the dictator's note ,documented as a scribe. Any additional findings or plans will be noted.
[2021-08-22 17:47] LABS: Glucose,Whole Blood 110 mg/dL (75-99)
[2021-08-23] MEDS: INSULIN ASPART (NovoLOG) 100 UNIT/ML VIAL SQ SCH ×4 (00:01→18:22)
[2021-08-23 00:15] LABS: Glucose,Whole Blood 73 mg/dL (75-99)
[2021-08-23 02:27] LABS: Glucose,Whole Blood 82 mg/dL (75-99)
--- NOTE | 2021-08-23 03:15 | XR ---
EXAMINATION TYPE: XR chest 1V portable DATE OF EXAM: 08/23/2021 COMPARISON: Yesterday HISTORY: Pneumonia. TECHNIQUE: Single view FINDINGS: There is coarse interstitial and airspace infiltrate throughout the lungs. There is tracheo stomy tube. Heart size is normal. There are chest leads. There is left central venous catheter with t ip at the top of the right atrium. There are chest leads. IMPRESSION: Pulmonary interstitial and airspace edema without change.
[2021-08-23] MEDS: ALBUTEROL HFA INHALER INHALATION SCH ×6 (03:18→23:42)
[2021-08-23 05:32] LABS: ABG Base Excess 2.6 mmol/L; ABG HCO3 28 mmol/L (21-25); ABG Oxygen Saturation 92.9 % (94-97); ABG PCO2 50 mmHg (35-45); ABG PH 7.36 (7.35-7.45); ABG PO2 64 mmHg (83-108); ABG TCO2 30 mmol/L (19-24)
[2021-08-23 05:39] LABS: Glucose,Whole Blood 72 mg/dL (75-99)
[2021-08-23 06:05] LABS: Allen Test Performed? no
[2021-08-23 06:09] LABS: Basophils % (A) 1 %; Eosinophils # (A) 0.2 k/uL (0-0.7); Eosinophils % (A) 3 %; HGB 8.8 gm/dL (11.4-16.0); Hypochromasia Slight; Lymphocytes # (A) 0.6 k/uL (1.0-4.8); Lymphocytes % (A) 11 %; MCH 31.4 pg (25.0-35.0); MCHC 32.7 g/dL (31.0-37.0); MCV 95.8 fL (80.0-100.0); Mean Platelet Volume 8.8; Monocytes # (A) 0.4 k/uL (0-1.0); Monocytes % (A) 7 %; Neutrophils # (A) 4.2 k/uL (1.3-7.7); Neutrophils % (A) 78 %; Platelet Count 160 k/uL (150-450); RBC 2.81 m/uL (3.80-5.40); RDW 14.7 % (11.5-15.5); WBC 5.4 k/uL (3.8-10.6)
[2021-08-23 06:29] LABS: Calcium 8.6 mg/dL (8.4-10.2); Magnesium 2.1 mg/dL (1.6-2.3)
[2021-08-23] MEDS: fentaNYL (PF). 1,000 MCG in SODIUM CHLORIDE 0.9% 80 ML IV SCH ×3 (06:53→20:32)
[2021-08-23] MEDS: SODIUM CHLORIDE 0.9% 1,000 ML IV SCH ×2 (06:54→23:52)
[2021-08-23] MEDS: PANTOPRAZOLE 40 MG/10 ML VIAL IVP SCH (08:10)
[2021-08-23] MEDS: DEXAMETHASONE SOD PHOSPHATE 10 MG/ML 1 ML VIAL IVP SCH (08:10)
[2021-08-23] MEDS: CHLORHEXIDINE GLUCONATE 15 ML CUP MUCOUS MEM SCH ×2 (08:10→20:29)
[2021-08-23] MEDS: ENOXAPARIN 40 MG/0.4 ML SYRINGE SQ SCH (08:10)
[2021-08-23] MEDS: FUROSEMIDE 10 MG/ML 4 ML VIAL IV SCH (08:22)
--- NOTE | 2021-08-23 09:30 | P.PN ---
Subjective Progress Note Date: 08/23/21 Principal diagnosis: Respiratory failure. This is a 76-year-old female seen in the emergency room, on August 04. She came in with complaints of shortness of breath and difficulty breathing. In addition, she had cough, chest congestion, generalized weakness, lightheadedness, his been sick for about a month or so. She apparently tested positive for coronavirus on July 30. Currently, she is on BiPAP, with settings of 15/5 and 100%. She's getting saline at 80 mL an hour. She has a history of hyperlipidemia, diabetes, hypertension, and hypothyroidism. White count 17, hemoglobin 13.7, hematocrit 40.6, and platelet count 133,000. D-dimer was 0.97. Sodium 133, potassium 4, chlorides 100, CO2 24, anion gap 9, BUN 18, creatinine 0.6. LDH was 1477 and C-reactive protein was 15.9. Chest x-ray showed elevation of the right diaphragm, and diffuse bilateral airspace disease consistent with coronavirus pneumonia. On today's evaluation on 08/06/2021 patient is seen in the intensive care unit. Patient was admitted on 08/04/2021 with symptoms of COVID-19 ammonia that have been present for about a month's, patient had a positive home test on 07/30/2021. Patient's hypoxia and dyspnea has significantly progressed, and intubated on 08/05/2021. While she is sedated and intubated on assist control mode of ventilation with a rate of 26, tidal volume is 400, FiO2 of 90% and PEEP of 15, this morning's blood gas shows pO2 of 78, pCO2 of 40, and pH of 7.41. This was done on FiO2 of 100% and FiO2 had since been dropped down to 90%. Patient is maintaining O2 saturations between 96-98%. Peak airway pressure is 34, plateau pressure is 31. Currently on 0.9 at 80 ML per hour, Diprivan is at 30 mics per kilo per minute, Nimbex is at 2 mics per kilo per minute. Today's chest x-ray shows bilateral multifocal and confluent opacities consistent with COVID-19 pneumonia. Today's labs have been reviewed, white blood cell count is improving and is down to 15.4, hemoglobin is 12.3, serum sodium is improved and is up to 135 compared to 129 on admission, potassium is 4.1, BUN is 21 creatinine is 0.78 yesterday's LFTs have been reviewed and AST was 122, ALT is 74, applying phosphatases 83, LDH was 1477, and CRP was 15.9 proBNP was within normal limits at 181 bronchial Eleanor level was 0.48, borderline, sputum cultures have been sent and showed few PMNs, many gram-negative diplococci. Final culture is pending. Blood culturef show no growth thus far. No dy namically patient is slightly bradycardic in the sinus mechanism with a rate of 51, blood pressure is 102/57, she was slightly hypotensive she was given a liter bolus this morning, she is getting another liter bolus infusing right now for low urine output. Patient is currently receiving Decadron 6 mg daily, she is on Baricitinib, Lovenox 40 mg daily, and COVID-19 vitamins. [facility] 0.97. Progress note dated 08/07/2021. 76-year-old female, again seen in the intensive care unit, room 252. She remains on the mechanical ventilator. The patient was intubated on August 05 for respiratory failure. She is on the volume assist control mode, rate 26, tidal volume 400, FiO2 80%, and PEEP of 15. Blood gases show a PaO2 of 68, pCO2 45, and a pH of 7.34. She is on propofol at 40 mcg/kg/m, Nimbex at 1.5 mcg/kg/m, saline at 80 mL an hour, and vital AF at 29 mL an hour, which is goal. White count 15.5, hemoglobin 12, hematocrit 35.6, platelet count 119,000. D- dimer is 0.75. Fibrinogen level DCXII. Sodium 138, potassium 3.8, chlorides 110, CO2 23, anion gap 5, BUN 19, creatinine 0.72. LDH is 847. C-reactive protein is 18.7, and her TSH is 8.370. Chest x-ray shows diffuse bilateral infiltrates. Reevaluated today on 08/18/2021, patient remains in the ICU, intubated and mechanically ventilated. Patient is on assist control rate of 3 to tidal volume 325 FiO2 70% PEEP of 16. ABG is marginal with a pO2 of 60 pCO2 of 70 pH of 7.32, hence no changes were made on her ventilator settings. Patient remains on a fall at 50 mcg/kg/m fentanyl 1 mcg/kg/h she is on D5 4500 mL per hour. CBC is relatively unremarkable hemoglobin is 10.1 electrolytes and renal profile are normal. Patient was seen by general surgery yesterday, and could not pass a scope to be able to perform at PEG tube placement. Hence the patient is scheduled today for tracheostomy, maybe PEG tube placement could be done today in the operating room. At any rate patient is not ready for any weaning, and apparently the family had no problem proceeding with tracheostomy and PEG tube placement. Her overall clinical status remains marginal at best. Reevaluated today on 08/19/2021, patient remains in the ICU, intubated and mechanically ventilated. Patient is on assist control rate of 32, tidal volume 325 and today I have increased the volume to 400 mostly because of ongoing cough leak from the new tracheostomy she is on 90% FiO2, and PEEP of 16. Chest x-ray continues to show bilateral infiltrates, not much of a change. Patient underwent uneventful tracheostomy yesterday. Her ABG this morning showed a pO2 of 74 pCO2 of 63 pH of 7.35, and not much of a change on the ventilator settings except increasing the tidal volume up to 400. I did cut down her FiO2 to 70%, and instructed nursing to keep her O2 saturation between 89 and 91%. She is on propofol at 25 mcg/kg/m fentanyl 1 mcg/kg/h she is also on Nimbex, and on IV fluid 0.9 normal saline at 20 mL per hour. Patient is scheduled to have a PICC line today. And will DC the central line. After a PICC line placement. Patient remains on enteral feeding via orogastric tube, receiving vital AF and 31 mL per hour. Electrolytes and renal profile are normal today. Remains on the COVID-19 cocktail including ascorbic acid, she is also on Decadron 6 mg IV push daily, Lovenox 40 mg subcu daily, Protonix 40 mg daily IV push, zinc, patient is also on cefepime for underlying Moraxella catarrhalis pneumonia. Reevaluated today on 08/20/2021, patient remains in the ICU, intubated and mechanically ventilated. She is on assist control rate of 3 to tidal volume 400 FiO2 75% PEEP of 16. ABG showed a pO2 of 54 DC O2 of 45 pH of 7.46, hence The patient on FiO2 of 75%, and no other vent changes were made. Patient continues to have tracheostomy, she underwent tracheostomy on 08/17/21, minimal air leak noted from the tracheostomy, however seems to be improving, and she is achieving near her septal volumes. Patient is on fentanyl at 20 mcg/kg/h propofol 25 mcg/kg/m and she is on vital AF. Rate 34. Patient is not on any paralytics. Hence I would assess mental status hopefully today of or possibly a lower dose of sedation. CBC is relatively normal hemoglobin is 9.5. Electrolytes are normal, BUN is 64 creatinine 0.97. Patient is receiving enteral feeding. Remains on the COVID-19 cocktail including Decadron 6 mg IV push daily Lovenox 40 mg subcu daily Protonix 40 mg IV push daily and she is also on vitamin C. Remains on cefepime for underlying Moraxella catarrhalis pneumonia. Reevaluated today on 08/21/2021, patient remains in the ICU intubated and mechanically ventilated. She is on assist control rate of 30 tidal volume 400 FiO2 is at 80% and PEEP is at 16 after reviewing her ABG which showed a pO2 of 65 pCO2 45 pH of 7.44 I recommended decreasing FiO2 to 70%. Patient did not tolerate higher PEEP/18. Hence kept on a PEEP of 16. Patient remains on propofol at 20 fentanyl at 0.5, and she is not on Nimbex. Patient is arousable she opens her eyes only. But does not follow any other instructions. Her electrolytes are normal BUN is 62 creatinine 1.01 blood pressure seems to be high S1 as the patient has lower sedation and this was the dose of propofol goes down, hence I recommended adding clevidipine's to maintain adequate blood pressure hopefully 150 systolic. Chest x-ray continues to be about the same showing bilateral infiltrates. Medications list reviewed patient is on albuter ol HFA, vitamin C, cefepime 1 g every 12 hours, she is on Peridex, vitamin D, Celebrex was added today, Decadron 6 mg IV push daily NovoLog insulin and Levemir insulin. Levothyroxine 100 g daily Protonix 40 mg IV push daily and she is on zinc. Progress note dated 08/22/2021. This is a 76-year-old female who was admitted back on August 04. She was admitted with a diagnosis of coronavirus associated pneumonia. She came to the intensive care unit on August 05. She was intubated on August 05. The patient had a tracheostomy tube inserted on August 18, and will hopefully have a PEG tube placed on August 22. Patient remains on the mechanical ventilator. She is on the volume assist control mode, rate 32, tidal volume 400, FiO2 80%, and PEEP of 16. The patient's blood gases show pO2 70, pCO2 48, and a pH is 7.39. The patient's on propofol at 25 mcg/kg/m, saline at 20 mL an hour, fentanyl at 0.5 mcg/kg/h, tube feedings which are on hold, and vital AF at 34 mL an hour. That is goal. Current white count of 7.1, hemoglobin 9.7, hematocrit 30, and platelet count 175,000. Sodium 141, potassium 4.3, chlorides 111, CO2 28, anion gap 2, BUN 64, and creatinine 0.96. Sputum sampling on August 13 and on August 05, show evidence of Moraxella catarrhalis. Chest x-ray on August 22, show diffuse bilateral infiltrates, which are essentially unchanged. Progress note dated 08/23/2021. 76-year-old female, who was admitted back on August 04. She was admitted with a diagnosis of coronavirus associated pneumonia. She came to the intensive care unit on August 05. She was intubated on the same day. She had a tracheostomy tube inserted on August 18, and had a PEG tube placed on August 22. She remains on mechanical ventilator. She is on the volume assist control mode, rate 32, tidal volume 400, FiO2 85%, PEEP of 20. Blood gases show pO2 of 64, pCO2 of 50, pH is 7.36. The patient is on fentanyl 1 mcg/kg/h, propofol at 40 mcg/kg/m. She's getting saline at 20 mL an hour. She's also getting vital AF at 10 mL an hour, with a goal of 31 mL an hour. The patient will get some IV Lasix today. Current labs include a white count of 5.4, hemoglobin 8.8, plat elet count 160,000, and hematocrit of 27. Sodium 143, potassium 4, chlorides 113, CO2 26, anion gap 4, BUN 59, and creatinine 0.19. Chest x-ray shows diffuse bilateral infiltrates, consistent with coronavirus associated pneumonia. Objective - Vital Signs Vital signs: Vital Signs Temp 97.9 F 08/23/21 08:00 Pulse 56 L 08/23/21 08:00 Resp 32 H 08/23/21 08:00 BP 89/56 08/23/21 08:00 Pulse Ox 91 L 08/23/21 08:00 Intake & Output 08/22/21 08/23/21 08/23/21 18:59 06:59 18:59 Intake Total 682.381 3588.795 1103 Output Total 515 360 30 Balance 32.364 8886.280 9455 Weight 98 kg 98 kg Intake: IV 301 1256 1003 Pressure bag 36 36 3 Sodium Chloride 0.9% 1, 240 1220 1000 000 ml @ 20 mls/hr IV . Q24H [facility] Rx#:[id number] Intake, IV Titration 146.364 295.795 100 Amount fentaNYL (PF). 1,000 mcg 77.519 100 In Sodium Chloride 0.9% 80 ml @ 0.5 MCG/KG/HR 4. 795 mls/hr IV .[id number] [facility] Rx#:[id number] propofoL 1,000 mg In 68.845 195.795 100 Empty Bag 1 bag @ Titrate IV .Q0M [facility] Rx#: [id number] Tube Feeding 0 Other 100 Output: Urine 515 360 30 Other: Voiding Method Indwelling Catheter Indwelling Catheter Indwelling Catheter ABP, PAP, CO, CI - Last Documented Arterial Blood Pressure 100/48 - Exam No acute distress, sedated and with a midline tracheostomy tube. HEENT examination is grossly unremarkable. Neck supple. Full range of motion. No adenopathy thyromegaly or neck vein distention. Cardiovascular examination reveals regular rhythm rate. S1-S2 normal. No S3 or S4. No discernible murmur noted. Heart sounds are distant. Heart rate 56 bpm. Lungs reveal use bilateral rhonchi. No wheezes or crackles. Breath sounds equal. Saturations 90%. Abdomen soft bowel sounds are heard. No masses or tenderness. PEG tube noted. Extremities are intact. No cyanosis clubbing or edema. Skin is without rash or lesion. Neurologic examination cannot be adequately assessed as the patient's currently sedated. - Labs CBC & Chem 7: 08/23/21 05:40 08/23/21 05:40 Labs: Abnormal Lab Results - Last 24 Hours (Table) 08/22/21 08/22/21 08/22/21 Range/Units 11:50 17:46 23:57 RBC (3.80-5.40) m/uL Hgb (11.4-16.0) gm/dL Hct (34.0-46.0) % Lymphocytes # (1.0-4.8) k/uL ABG pCO2 (35-45) mmHg ABG pO2 (83-108) mmHg ABG HCO3 (21-25) mmol/L ABG Total CO2 (19-24) mmol/L ABG O2 Saturation (94-97) % Chloride (98-107) mmol/L BUN (7-17) mg/dL Glucose (74-99) mg/dL POC Glucose (mg/dL) 122 H 110 H 73 L (75-99) mg/dL 08/23/21 08/23/21 08/23/21 Range/Units 05:29 05:38 05:40 RBC 2.81 L (3.80-5.40) m/uL Hgb 8.8 L (11.4-16.0) gm/dL Hct 27.0 L (34.0-46.0) % Lymphocytes # 0.6 L (1.0-4.8) k/uL ABG pCO2 50 H (35-45) mmHg ABG pO2 64 L (83-108) mmHg ABG HCO3 28 H (21-25) mmol/L ABG Total CO2 30 H (19-24) mmol/L ABG O2 Saturation 92.9 L (94-97) % Chloride (98-107) mmol/L BUN (7-17) mg/dL Glucose (74-99) mg/dL POC Glucose (mg/dL) 72 L (75-99) mg/dL 08/23/21 Range/Units 05:40 RBC (3.80-5.40) m/uL Hgb (11.4-16.0) gm/dL Hct (34.0-46.0) % Lymphocytes # (1.0-4.8) k/uL ABG pCO2 (35-45) mmHg ABG pO2 (83-108) mmHg ABG HCO3 (21-25) mmol/L ABG Total CO2 (19-24) mmol/L ABG O2 Saturation (94-97) % Chloride 113 H (98-107) mmol/L BUN 59 H (7-17) mg/dL Glucose 70 L (74-99) mg/dL POC Glucose (mg/dL) (75-99) mg/dL Assessment and Plan Assessment: Acute hypoxemic respiratory failure secondary to coronavirus associated pneumonia, status post intubation and mechanical ventilation on 08/05/2021, and tracheostomy, on August 18, and with PEG tube placement on August 22, 2021 Acute respiratory distress syndrome secondary to coronavirus associated pneumonia. Elevated inflammatory marker secondary to coronavirus infection. Moraxella catarrhalis pneumonia. Metabolic encephalopathy. History of essential hypertension. Negative for DVT of the bilateral lower extremities. History of hyperlipidemia. History of diabetes mellitus. History of hypothyroidism, not well controlled. Plan: Plan dated 08/05/2021. The patient's on vitamin C, vitamin D3, and zinc. In addition, the patient's getting Decadron 6 mg a day, and Lovenox 40 mg subcu daily. We also added GOLDEN to the patient's regimen. The patient may end up requiring intubation and mechanical ventilation. She is quite ill, and she is hypoxemic despite being on BiPAP at 100%. Additional recommendations and suggestions are forthcoming. Prognosis is guarded. We will continue to follow make recommendations where appropriate. Plan dated 08/07/2021. The patient remains on appropriate medications including vitamin C, vitamin D3, and zinc. In addition, the patient is getting level thyroxine 100 g daily down the NG tube. The patient remains on Lovenox 40 mg a day, and Decadron 6 mg a day. She also is getting GOLDEN, 4 mg a day. We will continue to follow make recommendations were appropriate. Prognosis is guarded. Her PEEP was increased to 20 cm water, in an attempt to reduce the FiO2. Additional recommendations and suggestions are forthcoming. Plan dated 08/22/2021. The patient's PEEP was increased from 16 to 20. We will attempt to wean the FiO2. We'll DC the cefepime. She remains on propofol and fentanyl. She will resume tube feedings, once the PEG tube has been inserted. Additional recommendations and suggestions are forthcoming. Prognosis is guarded. We will continue to follow make recommendations where appropriate. The patient should have a PEG tube inserted today. Medications are reviewed. X-ray and labs are reviewed. Plan dated 08/23/2021. The patient did have her PEG tube placed yesterday. She's currently remains on fentanyl and propofol. She is not on Nimbex. The patient's blood gases have been reviewed. The patient continues on tube feeds. He will be increase to goal sometime later today. Because she had not, she gets Lasix 40-60 mg IV push. Additional recommendations and suggestions are forthcoming. We will continue to follow make recommendations where appropriate. Prognosis is guarded. Time with Patient: Greater than 30
[2021-08-23] MEDS: ASCORBIC ACID 500 MG TAB PO SCH (11:23)
[2021-08-23] MEDS: CHOLECALCIFEROL 125 MCG (5000 IU) TABLET PO SCH (11:23)
[2021-08-23] MEDS: LEVOTHYROXINE 100 MCG TAB OG-TUBE SCH (11:23)
[2021-08-23] MEDS: ZINC SULFATE 220 MG CAP PO SCH (11:23)
[2021-08-23 11:51] LABS: Glucose,Whole Blood 78 mg/dL (75-99)
--- NOTE | 2021-08-23 12:41 | P.PN ---
Subjective Progress Note Date: 08/23/21 CHIEF COMPLAINT: COVID-19 pneumonia HISTORY OF PRESENT ILLNESS: Patient remains in the ICU intubated and on mechanical ventilation. Patient is status post PEG tube placement yesterday. Tube feedings will be started today. She does have a small cuff leak at the trach site. Afebrile. WBC 5.4 Hgb 8.8 PHYSICAL EXAM: VITAL SIGNS: Reviewed. GENERAL: Well-developed in no acute distress. HEENT: No sclera icterus. Moist buccal mucosa. Head is atraumatic, normocephalic. tracheostomy site with small air leak. Otherwise clean and dry ABDOMEN: Soft. Nondistended. Nontender. NEUROLOGIC: intubated and sedated ASSESSMENT: 1. Acute hypoxic respiratory failure secondary to COVID-19 pneumonia requiring mechanical ventilation status post tracheostomy placement 2. Severe protein calorie malnutrition status post PEG tube placement PLAN: -Tube feedings to be started today -Continue to monitor tracheostomy leak -Continue ICU management -Continue supportive care Physician Computer Field Technician note has been reviewed by physician. Signing provider agrees with the documented findings, assessment, and plan of care. Objective - Vital Signs Vital signs: Vital Signs Temp 97.9 F 08/23/21 08:00 Pulse 56 L 08/23/21 11:00 Resp 31 H 08/23/21 11:00 BP 100/60 08/23/21 11:00 Pulse Ox 90 L 08/23/21 11:00 Intake & Output 08/22/21 08/23/21 08/23/21 18:59 06:59 18:59 Intake Total 869.721 2207.795 1268.835 Output Total 515 360 635 Balance 32.364 1191.795 633.835 Weight 98 kg 98 kg Intake: IV 301 1256 1095 Pressure bag 36 36 15 Sodium Chloride 0.9% 1, 240 1220 1080 000 ml @ 20 mls/hr IV . Q24H [facility] Rx#:[id number] Intake, IV Titration 146.364 295.795 142.835 Amount fentaNYL (PF). 1,000 mcg 77.519 100 42.835 In Sodium Chloride 0.9% 80 ml @ 0.5 MCG/KG/HR 4. 795 mls/hr IV .[id number] [facility] Rx#:[id number] propofoL 1,000 mg In 68.845 195.795 100 Empty Bag 1 bag @ Titrate IV .Q0M [facility] Rx#: [id number] Tube Feeding 0 31 Other 100 Output: Urine 515 360 635 Other: Voiding Method Indwelling Catheter Indwelling Catheter Indwelling Catheter ABP, PAP, CO, CI - Last Documented Arterial Blood Pressure 110/47 - Labs CBC & Chem 7: 08/23/21 05:40 08/23/21 05:40 Labs: Abnormal Lab Results - Last 24 Hours (Table) 08/22/21 08/22/21 08/23/21 Range/Units 17:46 23:57 05:29 RBC (3.80-5.40) m/uL Hgb (11.4-16.0) gm/dL Hct (34.0-46.0) % Lymphocytes # (1.0-4.8) k/uL ABG pCO2 50 H (35-45) mmHg ABG pO2 64 L (83-108) mmHg ABG HCO3 28 H (21-25) mmol/L ABG Total CO2 30 H (19-24) mmol/L ABG O2 Saturation 92.9 L (94-97) % Chloride (98-107) mmol/L BUN (7-17) mg/dL Glucose (74-99) mg/dL POC Glucose (mg/dL) 110 H 73 L (75-99) mg/dL 08/23/21 08/23/21 08/23/21 Range/Units 05:38 05:40 05:40 RBC 2.81 L (3.80-5.40) m/uL Hgb 8.8 L (11.4-16.0) gm/dL Hct 27.0 L (34.0-46.0) % Lymphocytes # 0.6 L (1.0-4.8) k/uL ABG pCO2 (35-45) mmHg ABG pO2 (83-108) mmHg ABG HCO3 (21-25) mmol/L ABG Total CO2 (19-24) mmol/L ABG O2 Saturation (94-97) % Chloride 113 H (98-107) mmol/L BUN 59 H (7-17) mg/dL Glucose 70 L (74-99) mg/dL POC Glucose (mg/dL) 72 L (75-99) mg/dL
[2021-08-23] MEDS: INSULIN DETEMIR (LEVEMIR) 100 UNIT/ML SYR SQ SCH ×2 (13:21→20:29)
[2021-08-23] MEDS: CLEVIDIPINE BUTYRATE 25 MG in EMPTY BAG 1 BAG IV SCH (15:24)
--- NOTE | 2021-08-23 17:13 | P.PN ---
Subjective Progress Note Date: 08/16/21 This is a 76-year-old female who presented to emergency room with cough, congestion, dyspnea and weakness and fatigue over several weeks. Approximately week ago patient took a home Covid test which indicated that she was positive. She has not received Covid vaccine or treatment for the positive Covid test. When symptoms worsened she decided to present to the ER for evaluation and treatment. She was initially placed on BiPAP in the intensive care unit and subsequently been intubated. She is currently paralyzed with cisatracurium, sedated with propofol and utilizing Toradol IV push for pain management. Currently mechanically ventilated on 80% FiO2. Patient is afebrile 96.9, respiratory rate of 26, blood pressure is stable at 109/51, maintain oxygen saturation of 90% and entitle CO2 of 28. Most recent set of vital signs WC count of 15.5, hematocrit of 35.6, hemoglobin 12.0, platelet count 119. Chemistry panel reveals a sodium 138, potassium 3.8, BUN of 19, creatinine 0.72, GFR 83, AST of 99, ELT 106, alk phos 131, LDH 847. TSH of 8.37. T4 0.5, pro- calcitonin 0.34 08/08/2021 remains mechanical ventilator-dependent, FiO2 decreased to 65%, PEEP remains at 20. Continues on Nimbex and diprovan drips. Chest x-ray reported patchy bilateral infiltrate with diffuse interstitial pattern, tiny right-sided pleural effusion, received Lasix. Maintained on Rocephin (Moraxella catarrhalis in the sputum) , Covid cocktail with Baricitinib discontinued. Blood sugars elevated. Afebrile, WBC 13.3. Pro-calcitonin 0.34. 08/09/2021 continues on FiO2 65% with PEEP of 20, Nimbex and diprovan drips. Chest x-ray reporting persistent patchy bilateral infiltrate with diffuse interstitial pattern. Received additional Lasix today Blood sugars elevated, improving, A1c 8.4. Afebrile, WBC 14.3. D-dimer 0.77, ferritin increased to 2512, LDH decreased to 606, CRP increased to 21.2. LFTs decreasing with the exception of alkaline phosphatase, increased to 171. ProBNP 453. Receiving tube feeds to call, tolerating well with minimal to no residuals, stooling. 08/10/2021 remains vent dependent, FiO2 60%/+18 of PEEP. Maintained on Nimbex and diprovan drips. Chest x-ray noted, unchanged. Currently afebrile, T-max 99.1, WBC trending down, 12.7. BUN 24, and 0.74. Repeat pro-calcitonin 0.31. Additional Levemir added to med regimen yesterday, Blood sugars controlled. Received Lasix IV push yesterday again, diuresed well with 24-hour I&O reflecting a negative fluid balance. Sodium within normal limits, 142. 08/11/2021 yesterday patient of placed on Nimbex holiday, during the night unable to tolerate became asynchronous with the ventNimbex resumed. Diprovan drip continues. Maintained on FiO2 65% with PEEP decreased to 17. Maintained on Rocephin ,Covid cocktail. Chest x-ray reporting stable diffuse bilateral infiltrate. Inflammatory markers decreasing.Tolerating tube feeds minimal to no residual. Levemir increased yesterday with blood sugars controlled. Afebrile. 08/12/2021 patient was given another paralytic holiday yesterday and continues off of Nimbex. During the night, difficulty maintaining O2 sats, cuff leak discovered, required higher FiO2. Maintained on diprovan. Currently FIO2 90%, PEEP of 16. Chest x-ray reporting bilateral moderate pulmonary edema, possibly worsening, antibiotics adjusted, now on cefepime. Maintained on Covid cocktail. Blood sugars controlled. Renal function stable. 08/15/2021 remains vent dependent, FiO2 75%/+16 of PEEP. Maintained on diprovan and fentanyl drips. Currently off paralytics. Sedation holiday attempted yesterday with minimal improvement of mental status, no response to any stimuli reported. Chest x-ray reporting persistent bilateral airspace disease. Continues on cefepime. Tolerating tube feeds at goal, with minimal to no residuals, blood sugars controlled. Inflammatory markers mildly increased. 08/16/2021 remains vent dependent, FiO2 65%/+16 of PEEP. Chest x-ray reporting diffuse interstitial and alveolar infiltrates. Maintained on diprovan and fentanyl drips. International Marketing Manager currently discussing treatment of trach and peg with family. T-max 99.1, WBC 15.7. D-dimer, CRP decreased, LDH increased. 08/17/2021 vent dependent, FiO2 50%/+16 of PEEP. Chest x-ray reporting diffuse interstitial and alveolar infiltrates. Tube feeds and lovenox on hold. Maintained on IV fluid hydration D5/45. Scheduled for trach and peg today. T-max 99.7, WBC 13.5. Creatinine increased up to 1.15. 08/18/2021 Remains vent dependent, FiO2 70+16 of PEEP.Maintained on diprovan, fentanyl. PEG tube attempted yesterday, surgeon unable to pass scope. Patient is scheduled for tracheostomy and potential PEG tube placement today. 08/19/2021 Tracheostomy placed yesterday. Cuff leak present, TV increased. Maintained on 90% FiO2/+16 of PEEP. Chest x-ray reporting bilateral infiltrates.Continues on Nimbex, fentanyl and diprovan. PICC line placed. Tolerating tube feeds via OG of vital AF at goal of 31ml per hour. Sodium normalized, renal function stable. Blood sugars better controlled. 08/22/2021 scheduled for PEG tube placement today. Vent dependent FiO2 80%/PEEP +20. Chest x-ray reporting unchanged bilateral airspace disease. Maintained on fentanyl and diprovan drips. Afebrile, normal WBC. BUN 64, creatinine 0.96. Blood sugars controlled. 08/23/2021 PEG tube placed yesterday, tolerated procedure well. Tube feeds initiated, tolerated well with minimal to no residuals. FiO2 85%/PEEP at 20. This x-ray reporting unchanged pulmonary interstitial and airspace edema .Maintained on diprovan and fentanyl. Objective - Vital Signs Vital signs: Vital Signs Temp 97.7 F 08/23/21 16:00 Pulse 59 L 08/23/21 17:00 Resp 34 H 08/23/21 17:00 BP 90/61 08/23/21 15:00 Pulse Ox 91 L 08/23/21 17:00 Intake & Output 08/22/21 08/23/21 08/23/21 18:59 06:59 18:59 Intake Total 935.320 6554.795 1590.835 Output Total 047 732 2896 Balance 32.364 1191.795 50.835 Weight 98 kg 98 kg 98 kg Intake: IV 301 1256 1210 Pressure bag 36 36 30 Sodium Chloride 0.9% 1, 240 1220 1180 000 ml @ 20 mls/hr IV . Q24H [facility] Rx#:[id number] Intake, IV Titration 146.364 295.795 142.835 Amount fentaNYL (PF). 1,000 mcg 77.519 100 42.835 In Sodium Chloride 0.9% 80 ml @ 0.5 MCG/KG/HR 4. 795 mls/hr IV .[id number] [facility] Rx#:[id number] propofoL 1,000 mg In 68.845 195.795 100 Empty Bag 1 bag @ Titrate IV .Q0M [facility] Rx#: [id number] Tube Feeding 0 178 Other 100 60 Output: Urine 064 869 9112 Other: Voiding Method Indwelling Catheter Indwelling Catheter Indwelling Catheter ABP, PAP, CO, CI - Last Documented Arterial Blood Pressure 93/51 - Exam - Exam: limited Exam r/t to COVID GENERAL: intubated, sedated, NAD Lungs: Mechanically ventilated Heart: Regular rate and rhythm per panel monitor Abdomen: Soft, nondistended Extremities: No edema Neurological: Sedated - Labs CBC & Chem 7: 08/23/21 05:40 08/23/21 05:40 Labs: Abnormal Lab Results - Last 24 Hours (Table) 08/22/21 08/22/21 08/23/21 Range/Units 17:46 23:57 05:29 RBC (3.80-5.40) m/uL Hgb (11.4-16.0) gm/dL Hct (34.0-46.0) % Lymphocytes # (1.0-4.8) k/uL ABG pCO2 50 H (35-45) mmHg ABG pO2 64 L (83-108) mmHg ABG HCO3 28 H (21-25) mmol/L ABG Total CO2 30 H (19-24) mmol/L ABG O2 Saturation 92.9 L (94-97) % Chloride (98-107) mmol/L BUN (7-17) mg/dL Glucose (74-99) mg/dL POC Glucose (mg/dL) 110 H 73 L (75-99) mg/dL 08/23/21 08/23/21 08/23/21 Range/Units 05:38 05:40 05:40 RBC 2.81 L (3.80-5.40) m/uL Hgb 8.8 L (11.4-16.0) gm/dL Hct 27.0 L (34.0-46.0) % Lymphocytes # 0.6 L (1.0-4.8) k/uL ABG pCO2 (35-45) mmHg ABG pO2 (83-108) mmHg ABG HCO3 (21-25) mmol/L ABG Total CO2 (19-24) mmol/L ABG O2 Saturation (94-97) % Chloride 113 H (98-107) mmol/L BUN 59 H (7-17) mg/dL Glucose 70 L (74-99) mg/dL POC Glucose (mg/dL) 72 L (75-99) mg/dL Assessment and Plan Assessment: Acute Covid pneumonia, sputum culture reporting Moraxella Catarrhalis Acute hypoxic respiratory failure secondary to the above, mechanical ventilator dependent, status post tracheostomy and PEG tube placement. ARDS secondary to acute COVID-19 pneumonia Diabetes mellitus type 2, hyperglycemic, hemoglobin A1c 8.4 Hypothyroidism Essential hypertension Hyperlipidemia Metabolic encephalopathy, multifactorial, secondary to all the above Plan: Continue on current medication regime ,monitoring and symptomatic treatment. Maintain Covid cocktail. ICU management as per manager bar. Prognosis poor related to multiple complex medical issues. The impression and plan of care has been dictated as directed. : I performed a history and examination of this patient, discussed the same with the dictator. I agree with the dictator's note ,documented as a scribe. Any additional findings or plans will be noted.
[2021-08-23 17:42] LABS: Glucose,Whole Blood 91 mg/dL (75-99)
[2021-08-24] LABS: Glucose,Whole Blood 79 mg/dL (75-99)
[2021-08-24] MEDS: INSULIN ASPART (NovoLOG) 100 UNIT/ML VIAL SQ SCH ×5 (00:29→23:28)
[2021-08-24] MEDS: ALBUTEROL HFA INHALER INHALATION SCH ×6 (03:21→23:13)
[2021-08-24 04:37] LABS: HCT 30.9 % (34.0-46.0); HGB 9.9 gm/dL (11.4-16.0); Hypochromasia Slight; MCH 31.2 pg (25.0-35.0); MCV 97.7 fL (80.0-100.0); Mean Platelet Volume 8.8; Platelet Count 177 k/uL (150-450); RBC 3.17 m/uL (3.80-5.40); RDW 15.4 % (11.5-15.5); WBC 8.2 k/uL (3.8-10.6)
[2021-08-24 05:25] LABS: ABG Base Excess 0.5 mmol/L; ABG HCO3 27 mmol/L (21-25); ABG Oxygen Saturation 94.9 % (94-97); ABG PCO2 51 mmHg (35-45); ABG PH 7.33 (7.35-7.45); ABG PO2 74 mmHg (83-108); ABG TCO2 28 mmol/L (19-24); Allen Test Performed? Yes
[2021-08-24 05:45] LABS: Glucose,Whole Blood 90 mg/dL (75-99)
[2021-08-24] MEDS: LEVOTHYROXINE 100 MCG TAB OG-TUBE SCH (06:33)
[2021-08-24] MEDS: INSULIN DETEMIR (LEVEMIR) 100 UNIT/ML SYR SQ SCH ×2 (06:34→20:18)
--- NOTE | 2021-08-24 07:32 | XR ---
EXAMINATION TYPE: XR chest 1V DATE OF EXAM: 08/24/2021 COMPARISON: Chest x-ray 08/23/2021 HISTORY: Patient on ventilator, tracheostomy tube, abnormal chest x-ray TECHNIQUE: Single frontal view of the chest is obtained. FINDINGS: Bilateral airspace disease persists. Cardiac mediastinal silhouette shows a similar appear ance. Left-sided PICC line is stable, distal tip is near the cavoatrial junction. Tracheostomy tube i s overlying appropriate position. There are overlying artifacts. No evident pneumothorax or pleural e ffusion. IMPRESSION: Findings similar to prior exam, correlate for pneumonia, ARDS
[2021-08-24] MEDS: ENOXAPARIN 40 MG/0.4 ML SYRINGE SQ SCH (08:12)
[2021-08-24] MEDS: fentaNYL (PF). 1,000 MCG in SODIUM CHLORIDE 0.9% 80 ML IV SCH ×2 (08:12→19:04)
[2021-08-24] MEDS: FUROSEMIDE 10 MG/ML 4 ML VIAL IV SCH (08:14)
[2021-08-24] MEDS: PANTOPRAZOLE 40 MG/10 ML VIAL IVP SCH (08:14)
[2021-08-24] MEDS: ASCORBIC ACID 500 MG TAB PO SCH (08:14)
[2021-08-24] MEDS: CHLORHEXIDINE GLUCONATE 15 ML CUP MUCOUS MEM SCH ×2 (08:14→20:18)
[2021-08-24] MEDS: ZINC SULFATE 220 MG CAP PO SCH (08:14)
[2021-08-24] MEDS: DEXAMETHASONE SOD PHOSPHATE 10 MG/ML 1 ML VIAL IVP SCH (08:14)
[2021-08-24] MEDS: CHOLECALCIFEROL 125 MCG (5000 IU) TABLET PO SCH (08:53)
--- NOTE | 2021-08-24 11:01 | P.PN ---
Subjective Progress Note Date: 08/24/21 Principal diagnosis: Respiratory failure. This is a 76-year-old female seen in the emergency room, on August 04. She came in with complaints of shortness of breath and difficulty breathing. In addition, she had cough, chest congestion, generalized weakness, lightheadedness, his been sick for about a month or so. She apparently tested positive for coronavirus on July 30. Currently, she is on BiPAP, with settings of 15/5 and 100%. She's getting saline at 80 mL an hour. She has a history of hyperlipidemia, diabetes, hypertension, and hypothyroidism. White count 17, hemoglobin 13.7, hematocrit 40.6, and platelet count 133,000. D-dimer was 0.97. Sodium 133, potassium 4, chlorides 100, CO2 24, anion gap 9, BUN 18, creatinine 0.6. LDH was 1477 and C-reactive protein was 15.9. Chest x-ray showed elevation of the right diaphragm, and diffuse bilateral airspace disease consistent with coronavirus pneumonia. On today's evaluation on 08/06/2021 patient is seen in the intensive care unit. Patient was admitted on 08/04/2021 with symptoms of COVID-19 ammonia that have been present for about a month's, patient had a positive home test on 07/30/2021. Patient's hypoxia and dyspnea has significantly progressed, and intubated on 08/05/2021. While she is sedated and intubated on assist control mode of ventilation with a rate of 26, tidal volume is 400, FiO2 of 90% and PEEP of 15, this morning's blood gas shows pO2 of 78, pCO2 of 40, and pH of 7.41. This was done on FiO2 of 100% and FiO2 had since been dropped down to 90%. Patient is maintaining O2 saturations between 96-98%. Peak airway pressure is 34, plateau pressure is 31. Currently on 0.9 at 80 ML per hour, Diprivan is at 30 mics per kilo per minute, Nimbex is at 2 mics per kilo per minute. Today's chest x-ray shows bilateral multifocal and confluent opacities consistent with COVID-19 pneumonia. Today's labs have been reviewed, white blood cell count is improving and is down to 15.4, hemoglobin is 12.3, serum sodium is improved and is up to 135 compared to 129 on admission, potassium is 4.1, BUN is 21 creatinine is 0.78 yesterday's LFTs have been reviewed and AST was 122, ALT is 74, applying phosphatases 83, LDH was 1477, and CRP was 15.9 proBNP was within normal limits at 181 bronchial Eleanor level was 0.48, borderline, sputum cultures have been sent and showed few PMNs, many gram-negative diplococci. Final culture is pending. Blood culturef show no growth thus far. No dy namically patient is slightly bradycardic in the sinus mechanism with a rate of 51, blood pressure is 102/57, she was slightly hypotensive she was given a liter bolus this morning, she is getting another liter bolus infusing right now for low urine output. Patient is currently receiving Decadron 6 mg daily, she is on Baricitinib, Lovenox 40 mg daily, and COVID-19 vitamins. [facility] was 0.97. Progress note dated 08/07/2021. 76-year-old female, again seen in the intensive care unit, room 252. She remains on the mechanical ventilator. The patient was intubated on August 05 for respiratory failure. She is on the volume assist control mode, rate 26, tidal volume 400, FiO2 80%, and PEEP of 15. Blood gases show a PaO2 of 68, pCO2 45, and a pH of 7.34. She is on propofol at 40 mcg/kg/m, Nimbex at 1.5 mcg/kg/m, saline at 80 mL an hour, and vital AF at 29 mL an hour, which is goal. White count 15.5, hemoglobin 12, hematocrit 35.6, platelet count 119,000. D- dimer is 0.75. Fibrinogen level DCXII. Sodium 138, potassium 3.8, chlorides 110, CO2 23, anion gap 5, BUN 19, creatinine 0.72. LDH is 847. C-reactive protein is 18.7, and her TSH is 8.370. Chest x-ray shows diffuse bilateral infiltrates. Reevaluated today on 08/18/2021, patient remains in the ICU, intubated and mechanically ventilated. Patient is on assist control rate of 3 to tidal volume 325 FiO2 70% PEEP of 16. ABG is marginal with a pO2 of 60 pCO2 of 70 pH of 7.32, hence no changes were made on her ventilator settings. Patient remains on a fall at 50 mcg/kg/m fentanyl 1 mcg/kg/h she is on D5 4500 mL per hour. CBC is relatively unremarkable hemoglobin is 10.1 electrolytes and renal profile are normal. Patient was seen by general surgery yesterday, and could not pass a scope to be able to perform at PEG tube placement. Hence the patient is scheduled today for tracheostomy, maybe PEG tube placement could be done today in the operating room. At any rate patient is not ready for any weaning, and apparently the family had no problem proceeding with tracheostomy and PEG tube placement. Her overall clinical status remains marginal at best. Reevaluated today on 08/19/2021, patient remains in the ICU, intubated and mechanically ventilated. Patient is on assist control rate of 32, tidal volume 325 and today I have increased the volume to 400 mostly because of ongoing cough leak from the new tracheostomy she is on 90% FiO2, and PEEP of 16. Chest x-ray continues to show bilateral infiltrates, not much of a change. Patient underwent uneventful tracheostomy yesterday. Her ABG this morning showed a pO2 of 74 pCO2 of 63 pH of 7.35, and not much of a change on the ventilator settings except increasing the tidal volume up to 400. I did cut down her FiO2 to 70%, and instructed nursing to keep her O2 saturation between 89 and 91%. She is on propofol at 25 mcg/kg/m fentanyl 1 mcg/kg/h she is also on Nimbex, and on IV fluid 0.9 normal saline at 20 mL per hour. Patient is scheduled to have a PICC line today. And will DC the central line. After a PICC line placement. Patient remains on enteral feeding via orogastric tube, receiving vital AF and 31 mL per hour. Electrolytes and renal profile are normal today. Remains on the COVID-19 cocktail including ascorbic acid, she is also on Decadron 6 mg IV push daily, Lovenox 40 mg subcu daily, Protonix 40 mg daily IV push, zinc, patient is also on cefepime for underlying Moraxella catarrhalis pneumonia. Reevaluated today on 08/20/2021, patient remains in the ICU, intubated and mechanically ventilated. She is on assist control rate of 3 to tidal volume 400 FiO2 75% PEEP of 16. ABG showed a pO2 of 54 DC O2 of 45 pH of 7.46, hence The patient on FiO2 of 75%, and no other vent changes were made. Patient continues to have tracheostomy, she underwent tracheostomy on 08/17/21, minimal air leak noted from the tracheostomy, however seems to be improving, and she is achieving near her septal volumes. Patient is on fentanyl at 20 mcg/kg/h propofol 25 mcg/kg/m and she is on vital AF. Rate 34. Patient is not on any paralytics. Hence I would assess mental status hopefully today of or possibly a lower dose of sedation. CBC is relatively normal hemoglobin is 9.5. Electrolytes are normal, BUN is 64 creatinine 0.97. Patient is receiving enteral feeding. Remains on the COVID-19 cocktail including Decadron 6 mg IV push daily Lovenox 40 mg subcu daily Protonix 40 mg IV push daily and she is also on vitamin C. Remains on cefepime for underlying Moraxella catarrhalis pneumonia. Reevaluated today on 08/21/2021, patient remains in the ICU intubated and mechanically ventilated. She is on assist control rate of 30 tidal volume 400 FiO2 is at 80% and PEEP is at 16 after reviewing her ABG which showed a pO2 of 65 pCO2 45 pH of 7.44 I recommended decreasing FiO2 to 70%. Patient did not tolerate higher PEEP/18. Hence kept on a PEEP of 16. Patient remains on propofol at 20 fentanyl at 0.5, and she is not on Nimbex. Patient is arousable she opens her eyes only. But does not follow any other instructions. Her electrolytes are normal BUN is 62 creatinine 1.01 blood pressure seems to be high S1 as the patient has lower sedation and this was the dose of propofol goes down, hence I recommended adding clevidipine's to maintain adequate blood pressure hopefully 150 systolic. Chest x-ray continues to be about the same showing bilateral infiltrates. Medications list reviewed patient is on albuter ol HFA, vitamin C, cefepime 1 g every 12 hours, she is on Peridex, vitamin D, Celebrex was added today, Decadron 6 mg IV push daily NovoLog insulin and Levemir insulin. Levothyroxine 100 g daily Protonix 40 mg IV push daily and she is on zinc. Progress note dated 08/22/2021. This is a 76-year-old female who was admitted back on August 04. She was admitted with a diagnosis of coronavirus associated pneumonia. She came to the intensive care unit on August 05. She was intubated on August 05. The patient had a tracheostomy tube inserted on August 18, and will hopefully have a PEG tube placed on August 22. Patient remains on the mechanical ventilator. She is on the volume assist control mode, rate 32, tidal volume 400, FiO2 80%, and PEEP of 16. The patient's blood gases show pO2 70, pCO2 48, and a pH is 7.39. The patient's on propofol at 25 mcg/kg/m, saline at 20 mL an hour, fentanyl at 0.5 mcg/kg/h, tube feedings which are on hold, and vital AF at 34 mL an hour. That is goal. Current white count of 7.1, hemoglobin 9.7, hematocrit 30, and platelet count 175,000. Sodium 141, potassium 4.3, chlorides 111, CO2 28, anion gap 2, BUN 64, and creatinine 0.96. Sputum sampling on August 13 and on August 05, show evidence of Moraxella catarrhalis. Chest x-ray on August 22, show diffuse bilateral infiltrates, which are essentially unchanged. Progress note dated 08/23/2021. 76-year-old female, who was admitted back on August 04. She was admitted with a diagnosis of coronavirus associated pneumonia. She came to the intensive care unit on August 05. She was intubated on the same day. She had a tracheostomy tube inserted on August 18, and had a PEG tube placed on August 22. She remains on mechanical ventilator. She is on the volume assist control mode, rate 32, tidal volume 400, FiO2 85%, PEEP of 20. Blood gases show pO2 of 64, pCO2 of 50, pH is 7.36. The patient is on fentanyl 1 mcg/kg/h, propofol at 40 mcg/kg/m. She's getting saline at 20 mL an hour. She's also getting vital AF at 10 mL an hour, with a goal of 31 mL an hour. The patient will get some IV Lasix today. Current labs include a white count of 5.4, hemoglobin 8.8, plat elet count 160,000, and hematocrit of 27. Sodium 143, potassium 4, chlorides 113, CO2 26, anion gap 4, BUN 59, and creatinine 0.19. Chest x-ray shows diffuse bilateral infiltrates, consistent with coronavirus associated pneumonia. Progress note dated 08/24/2021. 76-year-old female, again seen in room 252. She was admitted way back on August 04. She was admitted with a diagnosis of coronavirus associated pneumonia. She came to the intensive care unit on August 05 area she was intubated on August 05. The patient had tracheostomy tube inserted on August 18, and a PEG tube placed on August 22. She remains on the mechanical ventilator. She is on the volume assist control mode, rate 32, tidal volume 400, FiO2 75%, and PEEP of 20. Blood gases show pO2 74, pCO2 of 51, and a pH is 7.30. The patient's on fentanyl at 1 mcg/kg/h, and propofol at 40 mcg/kg/m. The patient's getting saline at 20 mL an hour. She's getting vital AF at 23 mL an hour, which is goal. Today, we will attempt to wean the FiO2. White count 8.2, hemoglobin 9.9, hematocrit 30.9, and platelet count normal. Sodium 141, potassium 4, chlorides 111, CO2 25, anion gap 5, BUN 59, and creatinine 1.10. Chest x-ray shows diffuse bilateral infiltrates, which are largely unchanged. Objective - Vital Signs Vital signs: Vital Signs Temp 97.9 F 08/24/21 04:00 Pulse 66 08/24/21 08:00 Resp 17 08/24/21 08:00 BP 99/60 08/24/21 08:00 Pulse Ox 98 08/24/21 08:00 Intake & Output 08/23/21 08/24/21 08/24/21 18:59 06:59 18:59 Intake Total 5386.152 7621.068 168 Output Total 1630 575 155 Balance 152.835 455.068 13 Weight 98 kg 100 kg Intake: IV 1256 276 69 Pressure bag 36 36 9 Sodium Chloride 0.9% 1, 1220 240 60 000 ml @ 20 mls/hr IV . Q24H [facility] Rx#:[id number] Intake, IV Titration 242.835 388.068 Amount fentaNYL (PF). 1,000 mcg 42.835 188.068 In Sodium Chloride 0.9% 80 ml @ 0.5 MCG/KG/HR 4. 795 mls/hr IV .[id number] [facility] Rx#:[id number] propofoL 1,000 mg In 200 200 Empty Bag 1 bag @ Titrate IV .Q0M [facility] Rx#: [id number] Tube Feeding 224 276 69 Other 60 90 30 Output: Urine 1630 575 155 Other: Voiding Method Indwelling Catheter Indwelling Catheter Indwelling Catheter ABP, PAP, CO, CI - Last Documented Arterial Blood Pressure 138/52 - Exam No acute distress, sedated and with a midline tracheostomy tube. Saturations are 96%. HEENT examination is grossly unremarkable. Neck supple. Full range of motion. No adenopathy thyromegaly or neck vein distention. Cardiovascular examination reveals regular rhythm rate. S1-S2 normal. No S3 or S4. No discernible murmur noted. Heart sounds are distant. Heart rate 66 bpm. Lungs reveal use bilateral rhonchi. No wheezes or crackles. Breath sounds equal. Saturations 96%. Abdomen soft bowel sounds are heard. No masses or tenderness. PEG tube noted. Extremities are intact. No cyanosis clubbing or edema. Skin is without rash or lesion. Neurologic examination cannot be adequately assessed as the patient's currently sedated. - Labs CBC & Chem 7: 08/24/21 05:00 08/24/21 05:00 Labs: Abnormal Lab Results - Last 24 Hours (Table) 08/24/21 08/24/21 08/24/21 Range/Units 05:00 05:00 05:19 RBC 3.17 L (3.80-5.40) m/uL Hgb 9.9 L (11.4-16.0) gm/dL Hct 30.9 L (34.0-46.0) % ABG pH 7.33 L (7.35-7.45) ABG pCO2 51 H (35-45) mmHg ABG pO2 74 L (83-108) mmHg ABG HCO3 27 H (21-25) mmol/L ABG Total CO2 28 H (19-24) mmol/L Chloride 111 H (98-107) mmol/L BUN 59 H (7-17) mg/dL Creatinine 1.10 H (0.52-1.04) mg/dL Glucose 105 H (74-99) mg/dL Assessment and Plan Assessment: Acute hypoxemic respiratory failure secondary to coronavirus associated pne umonia, status post intubation and mechanical ventilation on 08/05/2021, and tracheostomy, on August 18, and with PEG tube placement on August 22, 2021 Acute respiratory distress syndrome secondary to coronavirus associated pneumonia. Elevated inflammatory marker secondary to coronavirus infection. Moraxella catarrhalis pneumonia. Metabolic encephalopathy. History of essential hypertension. Negative for DVT of the bilateral lower extremities. History of hyperlipidemia. History of diabetes mellitus. History of hypothyroidism, not well controlled. Plan: Plan dated 08/05/2021. The patient's on vitamin C, vitamin D3, and zinc. In addition, the patient's getting Decadron 6 mg a day, and Lovenox 40 mg subcu daily. We also added GOLDEN to the patient's regimen. The patient may end up requiring intubation and mechanical ventilation. She is quite ill, and she is hypoxemic despite being on BiPAP at 100%. Additional recommendations and suggestions are forthcoming. P rognosis is guarded. We will continue to follow make recommendations where appropriate. Plan dated 08/07/2021. The patient remains on appropriate medications including vitamin C, vitamin D3, and zinc. In addition, the patient is getting level thyroxine 100 g daily down the NG tube. The patient remains on Lovenox 40 mg a day, and Decadron 6 mg a day. She also is getting GOLDEN, 4 mg a day. We will continue to follow make recommendations were appropriate. Prognosis is guarded. Her PEEP was increased to 20 cm water, in an attempt to reduce the FiO2. Additional recommendations and suggestions are forthcoming. Plan dated 08/22/2021. The patient's PEEP was increased from 16 to 20. We will attempt to wean the FiO2. We'll DC the cefepime. She remains on propofol and fentanyl. She will resume tube feedings, once the PEG tube has been inserted. Additional recommendations and suggestions are forthcoming. Prognosis is guarded. We will continue to follow make recommendations where appropriate. The patient should have a PEG tube inserted today. Medications are reviewed. X-ray and labs are reviewed. Plan dated 08/23/2021. The patient did have her PEG tube placed yesterday. She's currently remains on fentanyl and propofol. She is not on Nimbex. The patient's blood gases have been reviewed. The patient continues on tube feeds. He will be increase to goal sometime later today. Because she had not, she gets Lasix 40-60 mg IV push. Additional recommendations and suggestions are forthcoming. We will continue to follow make recommendations where appropriate. Prognosis is guarded. Plan dated 08/24/2021. The patient now has a tracheostomy tube, and a PEG tube. The patient remains on fentanyl and propofol. The patient is not currently on any antibiotics. The patient was weaned off the Nimbex. The patient received tube feeds. We will attempt to wean the FiO2. The patient's on Decadron, and Lovenox. The patient remains on vitamin C, vitamin D3, and zinc. Additional recommendations and suggestions are forthcoming. Prognosis is guarded. We will continue to follow make recommendations where appropriate. Time with Patient: Greater than 30
--- NOTE | 2021-08-24 11:43 | P.PN ---
Subjective Progress Note Date: 08/24/21 This is a 76-year-old female who presented to emergency room with cough, congestion, dyspnea and weakness and fatigue over several weeks. Approximately week ago patient took a home Covid test which indicated that she was positive. She has not received Covid vaccine or treatment for the positive Covid test. When symptoms worsened she decided to present to the ER for evaluation and treatment. She was initially placed on BiPAP in the intensive care unit and subsequently been intubated. She is currently paralyzed with cisatracurium, sedated with propofol and utilizing Toradol IV push for pain management. Currently mechanically ventilated on 80% FiO2. Patient is afebrile 96.9, respiratory rate of 26, blood pressure is stable at 109/51, maintain oxygen saturation of 90% and entitle CO2 of 28. Most recent set of vital signs WC count of 15.5, hematocrit of 35.6, hemoglobin 12.0, platelet count 119. Chemistry panel reveals a sodium 138, potassium 3.8, BUN of 19, creatinine 0.72, GFR 83, AST of 99, ELT 106, alk phos 131, LDH 847. TSH of 8.37. T4 0.5, pro- calcitonin 0.34 08/08/2021 remains mechanical ventilator-dependent, FiO2 decreased to 65%, PEEP remains at 20. Continues on Nimbex and diprovan drips. Chest x-ray reported patchy bilateral infiltrate with diffuse interstitial pattern, tiny right-sided pleural effusion, received Lasix. Maintained on Rocephin (Moraxella catarrhalis in the sputum) , Covid cocktail with Baricitinib discontinued. Blood sugars elevated. Afebrile, WBC 13.3. Pro-calcitonin 0.34. 08/09/2021 continues on FiO2 65% with PEEP of 20, Nimbex and diprovan drips. Chest x-ray reporting persistent patchy bilateral infiltrate with diffuse interstitial pattern. Received additional Lasix today Blood sugars elevated, improving, A1c 8.4. Afebrile, WBC 14.3. D-dimer 0.77, ferritin increased to 2512, LDH decreased to 606, CRP increased to 21.2. LFTs decreasing with the exception of alkaline phosphatase, increased to 171. ProBNP 453. Receiving tube feeds to call, tolerating well with minimal to no residuals, stooling. 08/10/2021 remains vent dependent, FiO2 60%/+18 of PEEP. Maintained on Nimbex and diprovan drips. Chest x-ray noted, unchanged. Currently afebrile, T-max 99.1, WBC trending down, 12.7. BUN 24, and 0.74. Repeat pro-calcitonin 0.31. Additional Levemir added to med regimen yesterday, Blood sugars controlled. Received Lasix IV push yesterday again, diuresed well with 24-hour I&O reflecting a negative fluid balance. Sodium within normal limits, 142. 08/11/2021 yesterday patient of placed on Nimbex holiday, during the night unable to tolerate became asynchronous with the ventNimbex resumed. Diprovan drip continues. Maintained on FiO2 65% with PEEP decreased to 17. Maintained on Rocephin ,Covid cocktail. Chest x-ray reporting stable diffuse bilateral infiltrate. Inflammatory markers decreasing.Tolerating tube feeds minimal to no residual. Levemir increased yesterday with blood sugars controlled. Afebrile. 08/12/2021 patient was given another paralytic holiday yesterday and continues off of Nimbex. During the night, difficulty maintaining O2 sats, cuff leak discovered, required higher FiO2. Maintained on diprovan. Currently FIO2 90%, PEEP of 16. Chest x-ray reporting bilateral moderate pulmonary edema, possibly worsening, antibiotics adjusted, now on cefepime. Maintained on Covid cocktail. Blood sugars controlled. Renal function stable. 08/15/2021 remains vent dependent, FiO2 75%/+16 of PEEP. Maintained on diprovan and fentanyl drips. Currently off paralytics. Sedation holiday attempted yesterday with minimal improvement of mental status, no response to any stimuli reported. Chest x-ray reporting persistent bilateral airspace disease. Continues on cefepime. Tolerating tube feeds at goal, with minimal to no residuals, blood sugars controlled. Inflammatory markers mildly increased. 08/16/2021 remains vent dependent, FiO2 65%/+16 of PEEP. Chest x-ray reporting diffuse interstitial and alveolar infiltrates. Maintained on diprovan and fentanyl drips. Bee Keeper currently discussing treatment of trach and peg with family. T-max 99.1, WBC 15.7. D-dimer, CRP decreased, LDH increased. 08/17/2021 vent dependent, FiO2 50%/+16 of PEEP. Chest x-ray reporting diffuse interstitial and alveolar infiltrates. Tube feeds and lovenox on hold. Maintained on IV fluid hydration D5/45. Scheduled for trach and peg today. T-max 99.7, WBC 13.5. Creatinine increased up to 1.15. 08/18/2021 Remains vent dependent, FiO2 70+16 of PEEP.Maintained on diprovan, fentanyl. PEG tube attempted yesterday, surgeon unable to pass scope. Patient is scheduled for tracheostomy and potential PEG tube placement today. 08/19/2021 Tracheostomy placed yesterday. Cuff leak present, TV increased. Maintained on 90% FiO2/+16 of PEEP. Chest x-ray reporting bilateral infiltrates.Continues on Nimbex, fentanyl and diprovan. PICC line placed. Tolerating tube feeds via OG of vital AF at goal of 31ml per hour. Sodium normalized, renal function stable. Blood sugars better controlled. 08/22/2021 scheduled for PEG tube placement today. Vent dependent FiO2 80%/PEEP +20. Chest x-ray reporting unchanged bilateral airspace disease. Maintained on fentanyl and diprovan drips. Afebrile, normal WBC. BUN 64, creatinine 0.96. Blood sugars controlled. 08/23/2021 PEG tube placed yesterday, tolerated procedure well. Tube feeds initiated, tolerated well with minimal to no residuals. FiO2 85%/PEEP at 20. This x-ray reporting unchanged pulmonary interstitial and airspace edema .Maintained on diprovan and fentanyl. 08/24/2021 FiO2 75%/last 20 PEEP. Maintained on fentanyl, diprovan. Chest x- ray reporting persistent bilateral airspace disease, similar .Tolerating tube feeds at goal with minimal to no residual. Afebrile, normal WBC. Hemoglobin 9.9, platelets 177. Creatinine 1.1 Objective - Vital Signs Vital signs: Vital Signs Temp 97.9 F 08/24/21 04:00 Pulse 66 08/24/21 08:00 Resp 17 08/24/21 08:00 BP 99/60 08/24/21 08:00 Pulse Ox 98 08/24/21 08:00 Intake & Output 08/23/21 08/24/21 08/24/21 18:59 06:59 18:59 Intake Total 6720.710 4491.068 168 Output Total 1630 575 155 Balance 152.835 455.068 13 Weight 98 kg 100 kg Intake: IV 1256 276 69 Pressure bag 36 36 9 Sodium Chloride 0.9% 1, 1220 240 60 000 ml @ 20 mls/hr IV . Q24H [facility] Rx#:[id number] Intake, IV Titration 242.835 388.068 Amount fentaNYL (PF). 1,000 mcg 42.835 188.068 In Sodium Chloride 0.9% 80 ml @ 0.5 MCG/KG/HR 4. 795 mls/hr IV .[id number] [facility] Rx#:[id number] propofoL 1,000 mg In 200 200 Empty Bag 1 bag @ Titrate IV .Q0M [facility] Rx#: [id number] Tube Feeding 224 276 69 Other 60 90 30 Output: Urine 1630 575 155 Other: Voiding Method Indwelling Catheter Indwelling Catheter Indwelling Catheter ABP, PAP, CO, CI - Last Documented Arterial Blood Pressure 138/52 - Exam - Exam: limited Exam r/t to COVID GENERAL: intubated, sedated, NAD Lungs: Mechanically ventilated Heart: Regular rate and rhythm per quality assurance monitor final Abdomen: Soft, nondistended Extremities: No edema Neurological: Sedated - Labs CBC & Chem 7: 08/24/21 05:00 08/24/21 05:00 Labs: Abnormal Lab Results - Last 24 Hours (Table) 08/24/21 08/24/21 08/24/21 Range/Units 05:00 05:00 05:19 RBC 3.17 L (3.80-5.40) m/uL Hgb 9.9 L (11.4-16.0) gm/dL Hct 30.9 L (34.0-46.0) % ABG pH 7.33 L (7.35-7.45) ABG pCO2 51 H (35-45) mmHg ABG pO2 74 L (83-108) mmHg ABG HCO3 27 H (21-25) mmol/L ABG Total CO2 28 H (19-24) mmol/L Chloride 111 H (98-107) mmol/L BUN 59 H (7-17) mg/dL Creatinine 1.10 H (0.52-1.04) mg/dL Glucose 105 H (74-99) mg/dL Assessment and Plan Assessment: Acute Covid pneumonia, sputum culture reporting Moraxella Catarrhalis Acute hypoxic respiratory failure secondary to the above, mechanical ventilator dependent, status post tracheostomy and PEG tube placement. ARDS secondary to acute COVID-19 pneumonia Diabetes mellitus type 2, hyperglycemic, hemoglobin A1c 8.4 Hypothyroidism Essential hypertension Hyperlipidemia Metabolic encephalopathy, multifactorial, secondary to all the above Plan: Continue on current medication regime ,monitoring and symptomatic treatment. Covid cocktail. ICU management as per php engineer. Prognosis poor related to multiple complex medical issues. The impression and plan of care has been dictated as directed. : I performed a history and examination of this patient, discussed the same with the dictator. I agree with the dictator's note ,documented as a scribe. Any additional findings or plans will be noted.
[2021-08-24 12:32] LABS: Glucose,Whole Blood 107 mg/dL (75-99)
--- NOTE | 2021-08-24 13:43 | P.PN ---
Subjective Progress Note Date: 08/24/21 CHIEF COMPLAINT: COVID-19 pneumonia HISTORY OF PRESENT ILLNESS: Patient remains in the ICU intubated and on mechanical ventilation. Patient is status post PEG and trach placement. She is tolerating her tube feeds. Tube feeds are currently at 23 mL per hour. Afebrile. WBC 8.2 PHYSICAL EXAM: VITAL SIGNS: Reviewed. GENERAL: Well-developed in no acute distress. HEENT: No sclera icterus. Moist buccal mucosa. Head is atraumatic, normocephalic. tracheostomy site with small air leak. Otherwise clean and dry ABDOMEN: Soft. Nondistended. Nontender. PEG tube site clean dry and intact NEUROLOGIC: intubated and sedated ASSESSMENT: 1. Acute hypoxic respiratory failure secondary to COVID-19 pneumonia requiring mechanical ventilation status post tracheostomy placement 2. Severe protein calorie malnutrition status post PEG tube placement PLAN: -Continue tube feedings -Continue to monitor tracheostomy and PEG tube site -Continue ICU management -Continue supportive care Physician Underwriting Operations Manager note has been reviewed by physician. Signing provider agrees with the documented findings, assessment, and plan of care. Objective - Vital Signs Vital signs: Vital Signs Temp 97.9 F 08/24/21 04:00 Pulse 66 08/24/21 09:00 Resp 28 H 08/24/21 09:00 BP 106/59 08/24/21 09:00 Pulse Ox 96 08/24/21 09:00 Intake & Output 08/23/21 08/24/21 08/24/21 18:59 06:59 18:59 Intake Total 8382.738 4252.068 336 Output Total 7516 745 7075 Balance 152.835 455.068 -819 Weight 98 kg 100 kg Intake: IV 1256 276 138 Pressure bag 36 36 18 Sodium Chloride 0.9% 1, 1220 240 120 000 ml @ 20 mls/hr IV . Q24H [facility] Rx#:[id number] Intake, IV Titration 242.835 388.068 Amount fentaNYL (PF). 1,000 mcg 42.835 188.068 In Sodium Chloride 0.9% 80 ml @ 0.5 MCG/KG/HR 4. 795 mls/hr IV .[id number] [facility] Rx#:[id number] propofoL 1,000 mg In 200 200 Empty Bag 1 bag @ Titrate IV .Q0M [facility] Rx#: [id number] Tube Feeding 224 276 138 Other 60 90 60 Output: Urine 9691 619 2890 Other: Voiding Method Indwelling Catheter Indwelling Catheter Indwelling Catheter ABP, PAP, CO, CI - Last Documented Arterial Blood Pressure 120/47 - Labs CBC & Chem 7: 08/24/21 05:00 08/24/21 05:00 Labs: Abnormal Lab Results - Last 24 Hours (Table) 08/24/21 08/24/21 08/24/21 Range/Units 05:00 05:00 05:19 RBC 3.17 L (3.80-5.40) m/uL Hgb 9.9 L (11.4-16.0) gm/dL Hct 30.9 L (34.0-46.0) % ABG pH 7.33 L (7.35-7.45) ABG pCO2 51 H (35-45) mmHg ABG pO2 74 L (83-108) mmHg ABG HCO3 27 H (21-25) mmol/L ABG Total CO2 28 H (19-24) mmol/L Chloride 111 H (98-107) mmol/L BUN 59 H (7-17) mg/dL Creatinine 1.10 H (0.52-1.04) mg/dL Glucose 105 H (74-99) mg/dL POC Glucose (mg/dL) (75-99) mg/dL 08/24/21 Range/Units 12:30 RBC (3.80-5.40) m/uL Hgb (11.4-16.0) gm/dL Hct (34.0-46.0) % ABG pH (7.35-7.45) ABG pCO2 (35-45) mmHg ABG pO2 (83-108) mmHg ABG HCO3 (21-25) mmol/L ABG Total CO2 (19-24) mmol/L Chloride (98-107) mmol/L BUN (7-17) mg/dL Creatinine (0.52-1.04) mg/dL Glucose (74-99) mg/dL POC Glucose (mg/dL) 107 H (75-99) mg/dL
[2021-08-24 17:46] LABS: Glucose,Whole Blood 137 mg/dL (75-99)
[2021-08-24] MEDS: CLEVIDIPINE BUTYRATE 25 MG in EMPTY BAG 1 BAG IV SCH (18:57)
[2021-08-24] MEDS: SODIUM CHLORIDE 0.9% 1,000 ML IV SCH (20:18)
[2021-08-24 23:24] LABS: Glucose,Whole Blood 105 mg/dL (75-99)
[2021-08-25] MEDS: ALBUTEROL HFA INHALER INHALATION SCH ×6 (03:12→23:17)
[2021-08-25 03:36] LABS: Basophils % (A) 0 %; Eosinophils # (A) 0.3 k/uL (0-0.7); Eosinophils % (A) 4 %; HGB 9.9 gm/dL (11.4-16.0); Hypochromasia Slight; Lymphocytes # (A) 0.7 k/uL (1.0-4.8); Lymphocytes % (A) 9 %; MCH 30.6 pg (25.0-35.0); MCHC 31.9 g/dL (31.0-37.0); Mean Platelet Volume 9.1; Monocytes # (A) 0.4 k/uL (0-1.0); Monocytes % (A) 6 %; Neutrophils # (A) 5.9 k/uL (1.3-7.7); Neutrophils % (A) 80 %; Platelet Count 177 k/uL (150-450); RBC 3.23 m/uL (3.80-5.40); RDW 15.2 % (11.5-15.5); WBC 7.5 k/uL (3.8-10.6)
[2021-08-25 03:46] LABS: Albumin 2.6 g/dL (3.5-5.0); Calcium 9.2 mg/dL (8.4-10.2); Potassium 3.9 mmol/L (3.5-5.1); Total Bilirubin 0.4 mg/dL (0.2-1.3); Total Protein 5.8 g/dL (6.3-8.2)
[2021-08-25] MEDS ORDERED: POTASSIUM BICARB-CITRIC ACID 25 MEQ TABLET.EFF PO SCH (05:00)
[2021-08-25] MEDS: fentaNYL (PF). 1,000 MCG in SODIUM CHLORIDE 0.9% 80 ML IV SCH ×2 (05:06→16:39)
[2021-08-25 05:45] LABS: ABG Base Excess 1.5 mmol/L; ABG HCO3 27 mmol/L (21-25); ABG Oxygen Saturation 88.2 % (94-97); ABG PCO2 51 mmHg (35-45); ABG PH 7.34 (7.35-7.45); ABG TCO2 29 mmol/L (19-24); Allen Test Performed? Yes
[2021-08-25 05:46] LABS: ABG PO2 55 mmHg (83-108)
[2021-08-25] MEDS: INSULIN ASPART (NovoLOG) 100 UNIT/ML VIAL SQ SCH ×3 (06:01→19:07)
[2021-08-25 06:02] LABS: Glucose,Whole Blood 99 mg/dL (75-99)
[2021-08-25] MEDS: LEVOTHYROXINE 100 MCG TAB OG-TUBE SCH (06:08)
[2021-08-25] MEDS: INSULIN DETEMIR (LEVEMIR) 100 UNIT/ML SYR SQ SCH ×2 (06:08→20:28)
[2021-08-25] MEDS: PANTOPRAZOLE 40 MG/10 ML VIAL IVP SCH (09:06)
[2021-08-25] MEDS: DEXAMETHASONE SOD PHOSPHATE 10 MG/ML 1 ML VIAL IVP SCH (09:06)
[2021-08-25] MEDS: FUROSEMIDE 10 MG/ML 4 ML VIAL IV SCH (09:06)
[2021-08-25] MEDS: ASCORBIC ACID 500 MG TAB PO SCH (09:07)
[2021-08-25] MEDS: CHLORHEXIDINE GLUCONATE 15 ML CUP MUCOUS MEM SCH ×2 (09:07→20:28)
[2021-08-25] MEDS: ENOXAPARIN 40 MG/0.4 ML SYRINGE SQ SCH (09:07)
[2021-08-25] MEDS: ZINC SULFATE 220 MG CAP PO SCH (09:07)
[2021-08-25] MEDS: CHOLECALCIFEROL 125 MCG (5000 IU) TABLET PO SCH (09:07)
--- NOTE | 2021-08-25 09:22 | XR ---
EXAMINATION TYPE: XR chest 1V portable DATE OF EXAM: 08/25/2021 Comparison: 08/24/2021 Clinical History: 76-year-old female covid Findings: Tracheostomy cannula. Left PICC tip at the cavoatrial junction. Heart normal size. Hyperinflation. Di ffuse groundglass and confluent lower lung opacities persist but show slight improvement from prior e xam. No pleural effusion. Impression: COPD with continued bilateral COVID pneumonia. Airspace disease in the lower lungs has slightly impro chris.
--- NOTE | 2021-08-25 09:30 | P.PN ---
Subjective Progress Note Date: 08/25/21 Principal diagnosis: Respiratory failure. This is a 76-year-old female seen in the emergency room, on August 04. She came in with complaints of shortness of breath and difficulty breathing. In addition, she had cough, chest congestion, generalized weakness, lightheadedness, his been sick for about a month or so. She apparently tested positive for coronavirus on July 30. Currently, she is on BiPAP, with settings of 15/5 and 100%. She's getting saline at 80 mL an hour. She has a history of hyperlipidemia, diabetes, hypertension, and hypothyroidism. White count 17, hemoglobin 13.7, hematocrit 40.6, and platelet count 133,000. D-dimer was 0.97. Sodium 133, potassium 4, chlorides 100, CO2 24, anion gap 9, BUN 18, creatinine 0.6. LDH was 1477 and C-reactive protein was 15.9. Chest x-ray showed elevation of the right diaphragm, and diffuse bilateral airspace disease consistent with coronavirus pneumonia. On today's evaluation on 08/06/2021 patient is seen in the intensive care unit. Patient was admitted on 08/04/2021 with symptoms of COVID-19 ammonia that have been present for about a month's, patient had a positive home test on 07/30/2021. Patient's hypoxia and dyspnea has significantly progressed, and intubated on 08/05/2021. While she is sedated and intubated on assist control mode of ventilation with a rate of 26, tidal volume is 400, FiO2 of 90% and PEEP of 15, this morning's blood gas shows pO2 of 78, pCO2 of 40, and pH of 7.41. This was done on FiO2 of 100% and FiO2 had since been dropped down to 90%. Patient is maintaining O2 saturations between 96-98%. Peak airway pressure is 34, plateau pressure is 31. Currently on 0.9 at 80 ML per hour, Diprivan is at 30 mics per kilo per minute, Nimbex is at 2 mics per kilo per minute. Today's chest x-ray shows bilateral multifocal and confluent opacities consistent with COVID-19 pneumonia. Today's labs have been reviewed, white blood cell count is improving and is down to 15.4, hemoglobin is 12.3, serum sodium is improved and is up to 135 compared to 129 on admission, potassium is 4.1, BUN is 21 creatinine is 0.78 yesterday's LFTs have been reviewed and AST was 122, ALT is 74, applying phosphatases 83, LDH was 1477, and CRP was 15.9 proBNP was within normal limits at 181 bronchial Eleanor level was 0.48, borderline, sputum cultures have been sent and showed few PMNs, many gram-negative diplococci. Final culture is pending. Blood culturef show no growth thus far. No dy namically patient is slightly bradycardic in the sinus mechanism with a rate of 51, blood pressure is 102/57, she was slightly hypotensive she was given a liter bolus this morning, she is getting another liter bolus infusing right now for low urine output. Patient is currently receiving Decadron 6 mg daily, she is on Baricitinib, Lovenox 40 mg daily, and COVID-19 vitamins. [facility] was 0.97. Progress note dated 08/07/2021. 76-year-old female, again seen in the intensive care unit, room 252. She remains on the mechanical ventilator. The patient was intubated on August 05 for respiratory failure. She is on the volume assist control mode, rate 26, tidal volume 400, FiO2 80%, and PEEP of 15. Blood gases show a PaO2 of 68, pCO2 45, and a pH of 7.34. She is on propofol at 40 mcg/kg/m, Nimbex at 1.5 mcg/kg/m, saline at 80 mL an hour, and vital AF at 29 mL an hour, which is goal. White count 15.5, hemoglobin 12, hematocrit 35.6, platelet count 119,000. D- dimer is 0.75. Fibrinogen level DCXII. Sodium 138, potassium 3.8, chlorides 110, CO2 23, anion gap 5, BUN 19, creatinine 0.72. LDH is 847. C-reactive protein is 18.7, and her TSH is 8.370. Chest x-ray shows diffuse bilateral infiltrates. Reevaluated today on 08/18/2021, patient remains in the ICU, intubated and mechanically ventilated. Patient is on assist control rate of 3 to tidal volume 325 FiO2 70% PEEP of 16. ABG is marginal with a pO2 of 60 pCO2 of 70 pH of 7.32, hence no changes were made on her ventilator settings. Patient remains on a fall at 50 mcg/kg/m fentanyl 1 mcg/kg/h she is on D5 4500 mL per hour. CBC is relatively unremarkable hemoglobin is 10.1 electrolytes and renal profile are normal. Patient was seen by general surgery yesterday, and could not pass a scope to be able to perform at PEG tube placement. Hence the patient is scheduled today for tracheostomy, maybe PEG tube placement could be done today in the operating room. At any rate patient is not ready for any weaning, and apparently the family had no problem proceeding with tracheostomy and PEG tube placement. Her overall clinical status remains marginal at best. Reevaluated today on 08/19/2021, patient remains in the ICU, intubated and mechanically ventilated. Patient is on assist control rate of 32, tidal volume 325 and today I have increased the volume to 400 mostly because of ongoing cough leak from the new tracheostomy she is on 90% FiO2, and PEEP of 16. Chest x-ray continues to show bilateral infiltrates, not much of a change. Patient underwent uneventful tracheostomy yesterday. Her ABG this morning showed a pO2 of 74 pCO2 of 63 pH of 7.35, and not much of a change on the ventilator settings except increasing the tidal volume up to 400. I did cut down her FiO2 to 70%, and instructed nursing to keep her O2 saturation between 89 and 91%. She is on propofol at 25 mcg/kg/m fentanyl 1 mcg/kg/h she is also on Nimbex, and on IV fluid 0.9 normal saline at 20 mL per hour. Patient is scheduled to have a PICC line today. And will DC the central line. After a PICC line placement. Patient remains on enteral feeding via orogastric tube, receiving vital AF and 31 mL per hour. Electrolytes and renal profile are normal today. Remains on the COVID-19 cocktail including ascorbic acid, she is also on Decadron 6 mg IV push daily, Lovenox 40 mg subcu daily, Protonix 40 mg daily IV push, zinc, patient is also on cefepime for underlying Moraxella catarrhalis pneumonia. Reevaluated today on 08/20/2021, patient remains in the ICU, intubated and mechanically ventilated. She is on assist control rate of 3 to tidal volume 400 FiO2 75% PEEP of 16. ABG showed a pO2 of 54 DC O2 of 45 pH of 7.46, hence The patient on FiO2 of 75%, and no other vent changes were made. Patient continues to have tracheostomy, she underwent tracheostomy on 08/17/21, minimal air leak noted from the tracheostomy, however seems to be improving, and she is achieving near her septal volumes. Patient is on fentanyl at 20 mcg/kg/h propofol 25 mcg/kg/m and she is on vital AF. Rate 34. Patient is not on any paralytics. Hence I would assess mental status hopefully today of or possibly a lower dose of sedation. CBC is relatively normal hemoglobin is 9.5. Electrolytes are normal, BUN is 64 creatinine 0.97. Patient is receiving enteral feeding. Remains on the COVID-19 cocktail including Decadron 6 mg IV push daily Lovenox 40 mg subcu daily Protonix 40 mg IV push daily and she is also on vitamin C. Remains on cefepime for underlying Moraxella catarrhalis pneumonia. Reevaluated today on 08/21/2021, patient remains in the ICU intubated and mechanically ventilated. She is on assist control rate of 30 tidal volume 400 FiO2 is at 80% and PEEP is at 16 after reviewing her ABG which showed a pO2 of 65 pCO2 45 pH of 7.44 I recommended decreasing FiO2 to 70%. Patient did not tolerate higher PEEP/18. Hence kept on a PEEP of 16. Patient remains on propofol at 20 fentanyl at 0.5, and she is not on Nimbex. Patient is arousable she opens her eyes only. But does not follow any other instructions. Her electrolytes are normal BUN is 62 creatinine 1.01 blood pressure seems to be high S1 as the patient has lower sedation and this was the dose of propofol goes down, hence I recommended adding clevidipine's to maintain adequate blood pressure hopefully 150 systolic. Chest x-ray continues to be about the same showing bilateral infiltrates. Medications list reviewed patient is on albuter ol HFA, vitamin C, cefepime 1 g every 12 hours, she is on Peridex, vitamin D, Celebrex was added today, Decadron 6 mg IV push daily NovoLog insulin and Levemir insulin. Levothyroxine 100 g daily Protonix 40 mg IV push daily and she is on zinc. Progress note dated 08/22/2021. This is a 76-year-old female who was admitted back on August 04. She was admitted with a diagnosis of coronavirus associated pneumonia. She came to the intensive care unit on August 05. She was intubated on August 05. The patient had a tracheostomy tube inserted on August 18, and will hopefully have a PEG tube placed on August 22. Patient remains on the mechanical ventilator. She is on the volume assist control mode, rate 32, tidal volume 400, FiO2 80%, and PEEP of 16. The patient's blood gases show pO2 70, pCO2 48, and a pH is 7.39. The patient's on propofol at 25 mcg/kg/m, saline at 20 mL an hour, fentanyl at 0.5 mcg/kg/h, tube feedings which are on hold, and vital AF at 34 mL an hour. That is goal. Current white count of 7.1, hemoglobin 9.7, hematocrit 30, and platelet count 175,000. Sodium 141, potassium 4.3, chlorides 111, CO2 28, anion gap 2, BUN 64, and creatinine 0.96. Sputum sampling on August 13 and on August 05, show evidence of Moraxella catarrhalis. Chest x-ray on August 22, show diffuse bilateral infiltrates, which are essentially unchanged. Progress note dated 08/23/2021. 76-year-old female, who was admitted back on August 04. She was admitted with a diagnosis of coronavirus associated pneumonia. She came to the intensive care unit on August 05. She was intubated on the same day. She had a tracheostomy tube inserted on August 18, and had a PEG tube placed on August 22. She remains on mechanical ventilator. She is on the volume assist control mode, rate 32, tidal volume 400, FiO2 85%, PEEP of 20. Blood gases show pO2 of 64, pCO2 of 50, pH is 7.36. The patient is on fentanyl 1 mcg/kg/h, propofol at 40 mcg/kg/m. She's getting saline at 20 mL an hour. She's also getting vital AF at 10 mL an hour, with a goal of 31 mL an hour. The patient will get some IV Lasix today. Current labs include a white count of 5.4, hemoglobin 8.8, plat elet count 160,000, and hematocrit of 27. Sodium 143, potassium 4, chlorides 113, CO2 26, anion gap 4, BUN 59, and creatinine 0.19. Chest x-ray shows diffuse bilateral infiltrates, consistent with coronavirus associated pneumonia. Progress note dated 08/24/2021. 76-year-old female, again seen in room 252. She was admitted way back on August 04. She was admitted with a diagnosis of coronavirus associated pneumonia. She came to the intensive care unit on August 05 area she was intubated on August 05. The patient had tracheostomy tube inserted on August 18, and a PEG tube placed on August 22. She remains on the mechanical ventilator. She is on the volume assist control mode, rate 32, tidal volume 400, FiO2 75%, and PEEP of 20. Blood gases show pO2 74, pCO2 of 51, and a pH is 7.30. The patient's on fentanyl at 1 mcg/kg/h, and propofol at 40 mcg/kg/m. The patient's getting saline at 20 mL an hour. She's getting vital AF at 23 mL an hour, which is goal. Today, we will attempt to wean the FiO2. White count 8.2, hemoglobin 9.9, hematocrit 30.9, and platelet count normal. Sodium 141, potassium 4, chlorides 111, CO2 25, anion gap 5, BUN 59, and creatinine 1.10. Chest x-ray shows diffuse bilateral infiltrates, which are largely unchanged. Progress note dated 08/25/2021. 76-year-old female seen again in room 252. The patient was admitted back on 08/04/2021. She was admitted with a diagnosis of coronavirus associated pneumonia and hypoxemic respiratory failure. She came to the intensive care unit on August 05, and was intubated on 08/05/2021. The patient had tracheostomy tube inserted on August 18, and a PEG tube was done on 08/22/2021. She remains on mechanical ventilator. She is on the volume assist control mode, rate 32, tidal volume 400, FiO2 60%, PEEP of 20. Blood gases show pO2 of 55, pCO2 of 51, and a pH is 7.34. Saturations are 88-90%. She is on saline at 20 mL an hour, fentanyl 1 mcg/kg/h, propofol at 40 mcg/kg/m, and vital AF at 23 mL an hour, which is goal. She will have a daily interruption of sedation today. Her nurse today is Shirin. White count of 7.5, and Lovenox 0.9, hematocrit 31.0, with a normal platelet count. Sodium 142, potassium 3.9, chlorides 111, CO2 26, anion gap 5, BUN 62, creatinine 1.23. Albumin is 2.6. Chest x-ray continues to show diffuse bilateral infiltrates consistent with coronavirus associated pneumonia. Objective - Vital Signs Vital signs: Vital Signs Temp 97.1 F L 08/25/21 04:00 Pulse 74 08/25/21 07:00 Resp 32 H 08/25/21 07:00 BP 83/56 08/25/21 00:00 Pulse Ox 90 L 08/25/21 07:00 Intake & Output 08/24/21 08/25/21 08/25/21 18:59 06:59 18:59 Intake Total 782 951.82 Output Total 1605 420 Balance -823 531.82 Weight 102.7 kg Intake: IV 216 299 Pressure bag 36 39 Sodium Chloride 0.9% 1, 180 260 000 ml @ 20 mls/hr IV . Q24H JETHRO Rx#:[id number] Intake, IV Titration 200 263.82 Amount fentaNYL (PF). 1,000 mcg 100 96.22 In Sodium Chloride 0.9% 80 ml @ 0.5 MCG/KG/HR 4. 795 mls/hr IV .[id number] JETHRO Rx#:[id number] propofoL 1,000 mg In 100 167.6 Empty Bag 1 bag @ Titrate IV .Q0M J[facility]HRO Rx#: [id number] Tube Feeding 276 299 Other 90 90 Output: Urine 1605 420 Other: Voiding Method Indwelling Catheter Indwelling Catheter ABP, PAP, CO, CI - Last Documented Arterial Blood Pressure 110/46 - Exam No acute distress, sedated and with a midline tracheostomy tube. Saturations are 90%. HEENT examination is grossly unremarkable. Neck supple. Full range of motion. No adenopathy thyromegaly or neck vein distention. Cardiovascular examination reveals regular rhythm rate. S1-S2 normal. No S3 or S4. No discernible murmur noted. Heart sounds are distant. Heart rate 74 bpm. Lungs reveal use bilateral rhonchi. No wheezes or crackles. Breath sounds equal. Saturations 96%. Abdomen soft bowel sounds are heard. No masses or tenderness. PEG tube noted. Extremities are intact. No cyanosis clubbing or edema. Skin is without rash or lesion. Neurologic examination cannot be adequately assessed as the patient's currently sedated. - Labs CBC & Chem 7: 08/25/21 03:24 08/25/21 03:24 Labs: Abnormal Lab Results - Last 24 Hours (Table) 08/24/21 08/24/21 08/24/21 Range/Units 12:30 17:40 23:23 RBC (3.80-5.40) m/uL Hgb (11.4-16.0) gm/dL Hct (34.0-46.0) % Lymphocytes # (1.0-4.8) k/uL ABG pH (7.35-7.45) ABG pCO2 (35-45) mmHg ABG pO2 (83-108) mmHg ABG HCO3 (21-25) mmol/L ABG Total CO2 (19-24) mmol/L ABG O2 Saturation (94-97) % Chloride (98-107) mmol/L BUN (7-17) mg/dL Creatinine (0.52-1.04) mg/dL Glucose (74-99) mg/dL POC Glucose (mg/dL) 107 H 137 H 105 H (75-99) mg/dL Total Protein (6.3-8.2) g/dL Albumin (3.5-5.0) g/dL 08/25/21 08/25/21 08/25/21 Range/Units 03:24 03:24 05:41 RBC 3.23 L (3.80-5.40) m/uL Hgb 9.9 L (11.4-16.0) gm/dL Hct 31.0 L (34.0-46.0) % Lymphocytes # 0.7 L (1.0-4.8) k/uL ABG pH 7.34 L (7.35-7.45) ABG pCO2 51 H (35-45) mmHg ABG pO2 55 L* (83-108) mmHg ABG HCO3 27 H (21-25) mmol/L ABG Total CO2 29 H (19-24) mmol/L ABG O2 Saturation 88.2 L (94-97) % Chloride 111 H (98-107) mmol/L BUN 62 H (7-17) mg/dL Creatinine 1.23 H (0.52-1.04) mg/dL Glucose 114 H (74-99) mg/dL POC Glucose (mg/dL) (75-99) mg/dL Total Protein 5.8 L (6.3-8.2) g/dL Albumin 2.6 L (3.5-5.0) g/dL Assessment and Plan Assessment: Acute hypoxemic respiratory failure secondary to coronavirus associated pneumonia, status post intubation and mechanical ventilation on 08/05/2021, and tracheostomy, on August 18, and with PEG tube placement on August 22, 2021 Acute respiratory distress syndrome secondary to coronavirus associated pneumonia. Elevated inflammatory marker secondary to coronavirus infection. Moraxella catarrhalis pneumonia. Metabolic encephalopathy. History of essential hypertension. Negative for DVT of the bilateral lower extremities. History of hyperlipidemia. History of diabetes mellitus. History of hypothyroidism, not well controlled. Plan: Plan dated 08/05/2021. The patient's on vitamin C, vitamin D3, and zinc. In addition, the patient's getting Decadron 6 mg a day, and Lovenox 40 mg subcu daily. We also added GOLDEN to the patient's regimen. The patient may end up requiring intubation and mechanical ventilation. She is quite ill, and she is hypoxemic despite being on BiPAP at 100%. Additional recommendations and suggestions are forthcoming. Prognosis is guarded. We will continue to follow make recommendations where appropriate. Plan dated 08/07/2021. The patient remains on appropriate medications including vitamin C, vitamin D3, and zinc. In addition, the patient is getting level thyroxine 100 g daily down the NG tube. The patient remains on Lovenox 40 mg a day, and Decadron 6 mg a day. She also is getting GOLDEN, 4 mg a day. We will continue to follow make recommendations were appropriate. Prognosis is guarded. Her PEEP was increased to 20 cm water, in an attempt to reduce the FiO2. Additional recommendations and suggestions are forthcoming. Plan dated 08/22/2021. The patient's PEEP was increased from 16 to 20. We will attempt to wean the FiO2. We'll DC the cefepime. She remains on propofol and fentanyl. She will resume tube feedings, once the PEG tube has been inserted. Additional recommendations and suggestions are forthcoming. Prognosis is guarded. We will continue to follow make recommendations where appropriate. The patient should have a PEG tube inserted today. Medications are reviewed. X-ray and labs are reviewed. Plan dated 08/23/2021. The patient did have her PEG tube placed yesterday. She's currently remains on fentanyl and propofol. She is not on Nimbex. The patient's blood gases have been reviewed. The patient continues on tube feeds. He will be increase to goal sometime later today. Because she had not, she gets Lasix 40-60 mg IV push. Additional recommendations and suggestions are forthcoming. We will continue to follow make recommendations where appropriate. Prognosis is guarded. Plan dated 08/24/2021. The patient now has a tracheostomy tube, and a PEG tube. The patient remains on fentanyl and propofol. The patient is not currently on any antibiotics. The patient was weaned off the Nimbex. The patient received tube feeds. We will attempt to wean the FiO2. The patient's on Decadron, and Lovenox. The patient remains on vitamin C, vitamin D3, and zinc. Additional recommendations and suggestions are forthcoming. Prognosis is guarded. We will continue to follow make recommendations where appropriate. Plan dated 08/25/2021. Currently, the patient is about the same today as she was yesterday. She will have a daily interruption of sedation today. She is likely not ready to wean from mechanical ventilation, given her borderline blood gases, FiO2 60%, and her PEEP of 20. We will continue to follow make recommendations were appropriate. The patient continues on Decadron and Lovenox. She also remains on vitamin C, vitamin D3, and zinc. She has completed treatment for her Moraxella catarrhalis pulmonary infection. Prognosis is guarded. Time with Patient: Greater than 30
[2021-08-25 13:09] LABS: Glucose,Whole Blood 121 mg/dL (75-99)
--- NOTE | 2021-08-25 14:25 | P.PN ---
Subjective Progress Note Date: 08/25/21 This is a 76-year-old female who presented to emergency room with cough, congestion, dyspnea and weakness and fatigue over several weeks. Approximately week ago patient took a home Covid test which indicated that she was positive. She has not received Covid vaccine or treatment for the positive Covid test. When symptoms worsened she decided to present to the ER for evaluation and treatment. She was initially placed on BiPAP in the intensive care unit and subsequently been intubated. She is currently paralyzed with cisatracurium, sedated with propofol and utilizing Toradol IV push for pain management. Currently mechanically ventilated on 80% FiO2. Patient is afebrile 96.9, respiratory rate of 26, blood pressure is stable at 109/51, maintain oxygen saturation of 90% and entitle CO2 of 28. Most recent set of vital signs WC count of 15.5, hematocrit of 35.6, hemoglobin 12.0, platelet count 119. Chemistry panel reveals a sodium 138, potassium 3.8, BUN of 19, creatinine 0.72, GFR 83, AST of 99, ELT 106, alk phos 131, LDH 847. TSH of 8.37. T4 0.5, pro- calcitonin 0.34 08/08/2021 remains mechanical ventilator-dependent, FiO2 decreased to 65%, PEEP remains at 20. Continues on Nimbex and diprovan drips. Chest x-ray reported patchy bilateral infiltrate with diffuse interstitial pattern, tiny right-sided pleural effusion, received Lasix. Maintained on Rocephin (Moraxella catarrhalis in the sputum) , Covid cocktail with Baricitinib discontinued. Blood sugars elevated. Afebrile, WBC 13.3. Pro-calcitonin 0.34. 08/09/2021 continues on FiO2 65% with PEEP of 20, Nimbex and diprovan drips. Chest x-ray reporting persistent patchy bilateral infiltrate with diffuse interstitial pattern. Received additional Lasix today Blood sugars elevated, improving, A1c 8.4. Afebrile, WBC 14.3. D-dimer 0.77, ferritin increased to 2512, LDH decreased to 606, CRP increased to 21.2. LFTs decreasing with the exception of alkaline phosphatase, increased to 171. ProBNP 453. Receiving tube feeds to call, tolerating well with minimal to no residuals, stooling. 08/10/2021 remains vent dependent, FiO2 60%/+18 of PEEP. Maintained on Nimbex and diprovan drips. Chest x-ray noted, unchanged. Currently afebrile, T-max 99.1, WBC trending down, 12.7. BUN 24, and 0.74. Repeat pro-calcitonin 0.31. Additional Levemir added to med regimen yesterday, Blood sugars controlled. Received Lasix IV push yesterday again, diuresed well with 24-hour I&O reflecting a negative fluid balance. Sodium within normal limits, 142. 08/11/2021 yesterday patient of placed on Nimbex holiday, during the night unable to tolerate became asynchronous with the ventNimbex resumed. Diprovan drip continues. Maintained on FiO2 65% with PEEP decreased to 17. Maintained on Rocephin ,Covid cocktail. Chest x-ray reporting stable diffuse bilateral infiltrate. Inflammatory markers decreasing.Tolerating tube feeds minimal to no residual. Levemir increased yesterday with blood sugars controlled. Afebrile. 08/12/2021 patient was given another paralytic holiday yesterday and continues off of Nimbex. During the night, difficulty maintaining O2 sats, cuff leak discovered, required higher FiO2. Maintained on diprovan. Currently FIO2 90%, PEEP of 16. Chest x-ray reporting bilateral moderate pulmonary edema, possibly worsening, antibiotics adjusted, now on cefepime. Maintained on Covid cocktail. Blood sugars controlled. Renal function stable. 08/15/2021 remains vent dependent, FiO2 75%/+16 of PEEP. Maintained on diprovan and fentanyl drips. Currently off paralytics. Sedation holiday attempted yesterday with minimal improvement of mental status, no response to any stimuli reported. Chest x-ray reporting persistent bilateral airspace disease. Continues on cefepime. Tolerating tube feeds at goal, with minimal to no residuals, blood sugars controlled. Inflammatory markers mildly increased. 08/16/2021 remains vent dependent, FiO2 65%/+16 of PEEP. Chest x-ray reporting diffuse interstitial and alveolar infiltrates. Maintained on diprovan and fentanyl drips. Financial Aid currently discussing treatment of trach and peg with family. T-max 99.1, WBC 15.7. D-dimer, CRP decreased, LDH increased. 08/17/2021 vent dependent, FiO2 50%/+16 of PEEP. Chest x-ray reporting diffuse interstitial and alveolar infiltrates. Tube feeds and lovenox on hold. Maintained on IV fluid hydration D5/45. Scheduled for trach and peg today. T-max 99.7, WBC 13.5. Creatinine increased up to 1.15. 08/18/2021 Remains vent dependent, FiO2 70+16 of PEEP.Maintained on diprovan, fentanyl. PEG tube attempted yesterday, surgeon unable to pass scope. Patient is scheduled for tracheostomy and potential PEG tube placement today. 08/19/2021 Tracheostomy placed yesterday. Cuff leak present, TV increased. Maintained on 90% FiO2/+16 of PEEP. Chest x-ray reporting bilateral infiltrates.Continues on Nimbex, fentanyl and diprovan. PICC line placed. Tolerating tube feeds via OG of vital AF at goal of 31ml per hour. Sodium normalized, renal function stable. Blood sugars better controlled. 08/22/2021 scheduled for PEG tube placement today. Vent dependent FiO2 80%/PEEP +20. Chest x-ray reporting unchanged bilateral airspace disease. Maintained on fentanyl and diprovan drips. Afebrile, normal WBC. BUN 64, creatinine 0.96. Blood sugars controlled. 08/23/2021 PEG tube placed yesterday, tolerated procedure well. Tube feeds initiated, tolerated well with minimal to no residuals. FiO2 85%/PEEP at 20. This x-ray reporting unchanged pulmonary interstitial and airspace edema .Maintained on diprovan and fentanyl. 08/24/2021 FiO2 75%/last 20 PEEP. Maintained on fentanyl, diprovan. Chest x- ray reporting persistent bilateral airspace disease, similar .Tolerating tube feeds at goal with minimal to no residual. Afebrile, normal WBC. Hemoglobin 9.9, platelets 177. Creatinine 1.1. 08/25/2021 FiO2 60%/+20 of PEEP. Chest x-ray reporting hyperinflation, persistent diffuse groundglass with slight improvement in confluent lower lung opacities. Maintained on diprovan fentanyl drips. Objective - Vital Signs Vital signs: Vital Signs Temp 97.8 F 08/25/21 08:00 Pulse 75 08/25/21 11:00 Resp 32 H 08/25/21 11:00 BP 105/66 08/25/21 11:00 Pulse Ox 91 L 08/25/21 11:00 Intake & Output 08/24/21 08/25/21 08/25/21 18:59 06:59 18:59 Intake Total 782 951.82 321.232 Output Total 1605 420 465 Balance -823 531.82 -143.768 Weight 102.7 kg Intake: IV 216 299 92 Normal Saline 0.9 36 39 12 Pressure Bag @ 3mL/hr Sodium Chloride 0.9% 1, 180 260 80 000 ml @ 20 mls/hr IV . Q24H [facility] Rx#:[id number] Intake, IV Titration 200 263.82 107.232 Amount fentaNYL (PF). 1,000 mcg 100 96.22 47.311 In Sodium Chloride 0.9% 80 ml @ 0.5 MCG/KG/HR 4. 795 mls/hr IV .[id number] [facility] Rx#:[id number] propofoL 1,000 mg In 100 167.6 59.921 Empty Bag 1 bag @ Titrate IV .Q0M [facility] Rx#: [id number] Tube Feeding 276 299 92 Other 90 90 30 Output: Urine 1605 420 465 Other: Voiding Method Indwelling Catheter Indwelling Catheter Indwelling Catheter ABP, PAP, CO, CI - Last Documented Arterial Blood Pressure 161/58 - Exam - Exam: limited Exam r/t to COVID GENERAL: intubated, sedated, NAD Lungs: Mechanically ventilated Heart: Regular rate and rhythm per electrician helper [employer] Abdomen: Soft, nondistended Extremities: No edema Neurological: Sedated - Labs CBC & Chem 7: 08/25/21 03:24 08/25/21 03:24 Labs: Abnormal Lab Results - Last 24 Hours (Table) 08/24/21 08/24/21 08/25/21 Range/Units 17:40 23:23 03:24 RBC 3.23 L (3.80-5.40) m/uL Hgb 9.9 L (11.4-16.0) gm/dL Hct 31.0 L (34.0-46.0) % Lymphocytes # 0.7 L (1.0-4.8) k/uL ABG pH (7.35-7.45) ABG pCO2 (35-45) mmHg ABG pO2 (83-108) mmHg ABG HCO3 (21-25) mmol/L ABG Total CO2 (19-24) mmol/L ABG O2 Saturation (94-97) % Chloride (98-107) mmol/L BUN (7-17) mg/dL Creatinine (0.52-1.04) mg/dL Glucose (74-99) mg/dL POC Glucose (mg/dL) 137 H 105 H (75-99) mg/dL Total Protein (6.3-8.2) g/dL Albumin (3.5-5.0) g/dL 08/25/21 08/25/21 Range/Units 03:24 05:41 RBC (3.80-5.40) m/uL Hgb (11.4-16.0) gm/dL Hct (34.0-46.0) % Lymphocytes # (1.0-4.8) k/uL ABG pH 7.34 L (7.35-7.45) ABG pCO2 51 H (35-45) mmHg ABG pO2 55 L* (83-108) mmHg ABG HCO3 27 H (21-25) mmol/L ABG Total CO2 29 H (19-24) mmol/L ABG O2 Saturation 88.2 L (94-97) % Chloride 111 H (98-107) mmol/L BUN 62 H (7-17) mg/dL Creatinine 1.23 H (0.52-1.04) mg/dL Glucose 114 H (74-99) mg/dL POC Glucose (mg/dL) (75-99) mg/dL Total Protein 5.8 L (6.3-8.2) g/dL Albumin 2.6 L (3.5-5.0) g/dL Assessment and Plan Assessment: Acute Covid pneumonia, sputum culture reporting Moraxella Catarrhalis Acute hypoxic respiratory failure secondary to the above, mechanical ventilator dependent, status post tracheostomy and PEG tube placement. ARDS secondary to acute COVID-19 pneumonia Diabetes mellitus type 2, hyperglycemic, hemoglobin A1c 8.4 Hypothyroidism Essential hypertension Hyperlipidemia Metabolic encephalopathy, multifactorial, secondary to all the above Plan: Continue on current medication regime ,monitoring and symptomatic treatment. Covid cocktail. ICU management as per sofa cover inspector. Prognosis guarded related to multiple complex medical issues. The impression and plan of care has been dictated as directed. : I performed a history and examination of this patient, discussed the same with the dictator. I agree with the dictator's note ,documented as a scribe. Any additional findings or plans will be noted.
--- NOTE | 2021-08-25 16:00 | P.PN ---
Subjective Progress Note Date: 08/25/21 CHIEF COMPLAINT: COVID-19 pneumonia HISTORY OF PRESENT ILLNESS: Patient remains in the ICU intubated and on mechanical ventilation. Patient is status post PEG and trach placement. She is tolerating her tube feeds. Tube feeds are currently at 23 mL per hour her goal rate. Afebrile. WBC 7.5 hgb 9.9 PHYSICAL EXAM: VITAL SIGNS: Reviewed. GENERAL: Well-developed in no acute distress. HEENT: No sclera icterus. Moist buccal mucosa. Head is atraumatic, normocephalic. Trachea as a site clean dry and intact ABDOMEN: Soft. Nondistended. Nontender. PEG tube site clean dry and intact NEUROLOGIC: intubated and sedated ASSESSMENT: 1. Acute hypoxic respiratory failure secondary to COVID-19 pneumonia requiring mechanical ventilation status post tracheostomy placement 2. Severe protein calorie malnutrition status post PEG tube placement PLAN: -Continue tube feedings -Continue to monitor tracheostomy and PEG tube site -Continue ICU management -Continue supportive care Physician Tree Girdler note has been reviewed by physician. Signing provider agrees with the documented findings, assessment, and plan of care. Objective - Vital Signs Vital signs: Vital Signs Temp 97.2 F L 08/25/21 13:21 Pulse 64 08/25/21 15:00 Resp 32 H 08/25/21 15:00 BP 97/54 08/25/21 15:00 Pulse Ox 94 L 08/25/21 15:00 Intake & Output 08/24/21 08/25/21 08/25/21 18:59 06:59 18:59 Intake Total 782 951.82 603.564 Output Total 5848 209 3883 Balance -823 531.82 -476.436 Weight 102.7 kg Intake: IV 216 299 161 Normal Saline 0.9 36 39 21 Pressure Bag @ 3mL/hr Sodium Chloride 0.9% 1, 180 260 140 000 ml @ 20 mls/hr IV . Q24H [facility] Rx#:[id number] Intake, IV Titration 200 263.82 221.564 Amount fentaNYL (PF). 1,000 mcg 100 96.22 47.311 In Sodium Chloride 0.9% 80 ml @ 0.5 MCG/KG/HR 4. 795 mls/hr IV .[id number] [facility] Rx#:[id number] propofoL 1,000 mg In 100 167.6 174.253 Empty Bag 1 bag @ Titrate IV .Q0M [facility] Rx#: [id number] Tube Feeding 276 299 161 Other 90 90 60 Output: Urine 0874 187 0874 Other: Voiding Method Indwelling Catheter Indwelling Catheter Indwelling Catheter ABP, PAP, CO, CI - Last Documented Arterial Blood Pressure 100/45 - Labs CBC & Chem 7: 08/25/21 03:24 08/25/21 03:24 Labs: Abnormal Lab Results - Last 24 Hours (Table) 08/24/21 08/24/21 08/25/21 Range/Units 17:40 23:23 03:24 RBC 3.23 L (3.80-5.40) m/uL Hgb 9.9 L (11.4-16.0) gm/dL Hct 31.0 L (34.0-46.0) % Lymphocytes # 0.7 L (1.0-4.8) k/uL ABG pH (7.35-7.45) ABG pCO2 (35-45) mmHg ABG pO2 (83-108) mmHg ABG HCO3 (21-25) mmol/L ABG Total CO2 (19-24) mmol/L ABG O2 Saturation (94-97) % Chloride (98-107) mmol/L BUN (7-17) mg/dL Creatinine (0.52-1.04) mg/dL Glucose (74-99) mg/dL POC Glucose (mg/dL) 137 H 105 H (75-99) mg/dL Total Protein (6.3-8.2) g/dL Albumin (3.5-5.0) g/dL 08/25/21 08/25/21 08/25/21 Range/Units 03:24 05:41 13:08 RBC (3.80-5.40) m/uL Hgb (11.4-16.0) gm/dL Hct (34.0-46.0) % Lymphocytes # (1.0-4.8) k/uL ABG pH 7.34 L (7.35-7.45) ABG pCO2 51 H (35-45) mmHg ABG pO2 55 L* (83-108) mmHg ABG HCO3 27 H (21-25) mmol/L ABG Total CO2 29 H (19-24) mmol/L ABG O2 Saturation 88.2 L (94-97) % Chloride 111 H (98-107) mmol/L BUN 62 H (7-17) mg/dL Creatinine 1.23 H (0.52-1.04) mg/dL Glucose 114 H (74-99) mg/dL POC Glucose (mg/dL) 121 H (75-99) mg/dL Total Protein 5.8 L (6.3-8.2) g/dL Albumin 2.6 L (3.5-5.0) g/dL
[2021-08-25 18:29] LABS: Glucose,Whole Blood 129 mg/dL (75-99)
[2021-08-25] MEDS: SODIUM CHLORIDE 0.9% 1,000 ML IV SCH (20:35)
[2021-08-25 23:21] LABS: Glucose,Whole Blood 105 mg/dL (75-99)
[2021-08-26] MEDS: INSULIN ASPART (NovoLOG) 100 UNIT/ML VIAL SQ SCH ×5 (01:14→23:43)
[2021-08-26] MEDS: fentaNYL (PF). 1,000 MCG in SODIUM CHLORIDE 0.9% 80 ML IV SCH ×3 (03:04→21:01)
[2021-08-26] MEDS: ALBUTEROL HFA INHALER INHALATION SCH ×5 (03:26→19:10)
[2021-08-26 03:44] LABS: HGB 9.6 gm/dL (11.4-16.0); Hypochromasia Slight; MCH 30.9 pg (25.0-35.0); MCHC 32.1 g/dL (31.0-37.0); MCV 96.3 fL (80.0-100.0); Mean Platelet Volume 8.9; Platelet Count 189 k/uL (150-450); RBC 3.11 m/uL (3.80-5.40); RDW 15.3 % (11.5-15.5); WBC 8.6 k/uL (3.8-10.6)
[2021-08-26 03:58] LABS: Calcium 9.1 mg/dL (8.4-10.2); Potassium 3.9 mmol/L (3.5-5.1)
[2021-08-26] MEDS ORDERED: POTASSIUM BICARB-CITRIC ACID 25 MEQ TABLET.EFF PO SCH (06:00)
[2021-08-26 06:17] LABS: Glucose,Whole Blood 98 mg/dL (75-99)
[2021-08-26 06:28] LABS: ABG Base Excess 2.4 mmol/L; ABG HCO3 28 mmol/L (21-25); ABG PCO2 51 mmHg (35-45); ABG PH 7.35 (7.35-7.45); ABG PO2 60 mmHg (83-108); ABG TCO2 30 mmol/L (19-24); Allen Test Performed? Yes
[2021-08-26] MEDS: INSULIN DETEMIR (LEVEMIR) 100 UNIT/ML SYR SQ SCH ×2 (06:44→21:00)
[2021-08-26] MEDS: LEVOTHYROXINE 100 MCG TAB OG-TUBE SCH (06:45)
[2021-08-26] MEDS: CHLORHEXIDINE GLUCONATE 15 ML CUP MUCOUS MEM SCH ×2 (08:13→21:00)
[2021-08-26] MEDS: PANTOPRAZOLE 40 MG/10 ML VIAL IVP SCH (08:13)
[2021-08-26] MEDS: CHOLECALCIFEROL 125 MCG (5000 IU) TABLET PO SCH (08:14)
[2021-08-26] MEDS: ASCORBIC ACID 500 MG TAB PO SCH (08:14)
[2021-08-26] MEDS: FUROSEMIDE 10 MG/ML 4 ML VIAL IV SCH (08:14)
[2021-08-26] MEDS: DEXAMETHASONE SOD PHOSPHATE 10 MG/ML 1 ML VIAL IVP SCH (08:14)
[2021-08-26] MEDS: ENOXAPARIN 40 MG/0.4 ML SYRINGE SQ SCH (08:14)
[2021-08-26] MEDS: ZINC SULFATE 220 MG CAP PO SCH (08:14)
--- NOTE | 2021-08-26 08:20 | XR ---
EXAMINATION TYPE: XR chest 1V portable DATE OF EXAM: 08/26/2021 COMPARISON: 08/25/2021 HISTORY: Shortness of breath TECHNIQUE: Single frontal view of the chest is obtained. FINDINGS: Tracheostomy cannula. Left PICC tip at the cavoatrial junction. Heart normal size. Hyperin flation. Diffuse groundglass and confluent lower lung opacities persist but show slight improvement f rom prior exam. No pleural effusion. IMPRESSION: Stable bilateral infiltrates.
--- NOTE | 2021-08-26 09:24 | P.PN ---
Subjective Progress Note Date: 08/26/21 Principal diagnosis: Respiratory failure. This is a 76-year-old female seen in the emergency room, on August 04. She came in with complaints of shortness of breath and difficulty breathing. In addition, she had cough, chest congestion, generalized weakness, lightheadedness, his been sick for about a month or so. She apparently tested positive for coronavirus on July 30. Currently, she is on BiPAP, with settings of 15/5 and 100%. She's getting saline at 80 mL an hour. She has a history of hyperlipidemia, diabetes, hypertension, and hypothyroidism. White count 17, hemoglobin 13.7, hematocrit 40.6, and platelet count 133,000. D-dimer was 0.97. Sodium 133, potassium 4, chlorides 100, CO2 24, anion gap 9, BUN 18, creatinine 0.6. LDH was 1477 and C-reactive protein was 15.9. Chest x-ray showed elevation of the right diaphragm, and diffuse bilateral airspace disease consistent with coronavirus pneumonia. On today's evaluation on 08/06/2021 patient is seen in the intensive care unit. Patient was admitted on 08/04/2021 with symptoms of COVID-19 ammonia that have been present for about a month's, patient had a positive home test on 07/30/2021. Patient's hypoxia and dyspnea has significantly progressed, and intubated on 08/05/2021. While she is sedated and intubated on assist control mode of ventilation with a rate of 26, tidal volume is 400, FiO2 of 90% and PEEP of 15, this morning's blood gas shows pO2 of 78, pCO2 of 40, and pH of 7.41. This was done on FiO2 of 100% and FiO2 had since been dropped down to 90%. Patient is maintaining O2 saturations between 96-98%. Peak airway pressure is 34, plateau pressure is 31. Currently on 0.9 at 80 ML per hour, Diprivan is at 30 mics per kilo per minute, Nimbex is at 2 mics per kilo per minute. Today's chest x-ray shows bilateral multifocal and confluent opacities consistent with COVID-19 pneumonia. Today's labs have been reviewed, white blood cell count is improving and is down to 15.4, hemoglobin is 12.3, serum sodium is improved and is up to 135 compared to 129 on admission, potassium is 4.1, BUN is 21 creatinine is 0.78 yesterday's LFTs have been reviewed and AST was 122, ALT is 74, applying phosphatases 83, LDH was 1477, and CRP was 15.9 proBNP was within normal limits at 181 bronchial Eleanor level was 0.48, borderline, sputum cultures have been sent and showed few PMNs, many gram-negative diplococci. Final culture is pending. Blood culturef show no growth thus far. No dy namically patient is slightly bradycardic in the sinus mechanism with a rate of 51, blood pressure is 102/57, she was slightly hypotensive she was given a liter bolus this morning, she is getting another liter bolus infusing right now for low urine output. Patient is currently receiving Decadron 6 mg daily, she is on Baricitinib, Lovenox 40 mg daily, and COVID-19 vitamins. [facility] was 0.97. Progress note dated 08/07/2021. 76-year-old female, again seen in the intensive care unit, room 252. She remains on the mechanical ventilator. The patient was intubated on August 05 for respiratory failure. She is on the volume assist control mode, rate 26, tidal volume 400, FiO2 80%, and PEEP of 15. Blood gases show a PaO2 of 68, pCO2 45, and a pH of 7.34. She is on propofol at 40 mcg/kg/m, Nimbex at 1.5 mcg/kg/m, saline at 80 mL an hour, and vital AF at 29 mL an hour, which is goal. White count 15.5, hemoglobin 12, hematocrit 35.6, platelet count 119,000. D- dimer is 0.75. Fibrinogen level DCXII. Sodium 138, potassium 3.8, chlorides 110, CO2 23, anion gap 5, BUN 19, creatinine 0.72. LDH is 847. C-reactive protein is 18.7, and her TSH is 8.370. Chest x-ray shows diffuse bilateral infiltrates. Reevaluated today on 08/18/2021, patient remains in the ICU, intubated and mechanically ventilated. Patient is on assist control rate of 3 to tidal volume 325 FiO2 70% PEEP of 16. ABG is marginal with a pO2 of 60 pCO2 of 70 pH of 7.32, hence no changes were made on her ventilator settings. Patient remains on a fall at 50 mcg/kg/m fentanyl 1 mcg/kg/h she is on D5 4500 mL per hour. CBC is relatively unremarkable hemoglobin is 10.1 electrolytes and renal profile are normal. Patient was seen by general surgery yesterday, and could not pass a scope to be able to perform at PEG tube placement. Hence the patient is scheduled today for tracheostomy, maybe PEG tube placement could be done today in the operating room. At any rate patient is not ready for any weaning, and apparently the family had no problem proceeding with tracheostomy and PEG tube placement. Her overall clinical status remains marginal at best. Reevaluated today on 08/19/2021, patient remains in the ICU, intubated and mechanically ventilated. Patient is on assist control rate of 32, tidal volume 325 and today I have increased the volume to 400 mostly because of ongoing cough leak from the new tracheostomy she is on 90% FiO2, and PEEP of 16. Chest x-ray continues to show bilateral infiltrates, not much of a change. Patient underwent uneventful tracheostomy yesterday. Her ABG this morning showed a pO2 of 74 pCO2 of 63 pH of 7.35, and not much of a change on the ventilator settings except increasing the tidal volume up to 400. I did cut down her FiO2 to 70%, and instructed nursing to keep her O2 saturation between 89 and 91%. She is on propofol at 25 mcg/kg/m fentanyl 1 mcg/kg/h she is also on Nimbex, and on IV fluid 0.9 normal saline at 20 mL per hour. Patient is scheduled to have a PICC line today. And will DC the central line. After a PICC line placement. Patient remains on enteral feeding via orogastric tube, receiving vital AF and 31 mL per hour. Electrolytes and renal profile are normal today. Remains on the COVID-19 cocktail including ascorbic acid, she is also on Decadron 6 mg IV push daily, Lovenox 40 mg subcu daily, Protonix 40 mg daily IV push, zinc, patient is also on cefepime for underlying Moraxella catarrhalis pneumonia. Reevaluated today on 08/20/2021, patient remains in the ICU, intubated and mechanically ventilated. She is on assist control rate of 3 to tidal volume 400 FiO2 75% PEEP of 16. ABG showed a pO2 of 54 DC O2 of 45 pH of 7.46, hence The patient on FiO2 of 75%, and no other vent changes were made. Patient continues to have tracheostomy, she underwent tracheostomy on 08/17/21, minimal air leak noted from the tracheostomy, however seems to be improving, and she is achieving near her septal volumes. Patient is on fentanyl at 20 mcg/kg/h propofol 25 mcg/kg/m and she is on vital AF. Rate 34. Patient is not on any paralytics. Hence I would assess mental status hopefully today of or possibly a lower dose of sedation. CBC is relatively normal hemoglobin is 9.5. Electrolytes are normal, BUN is 64 creatinine 0.97. Patient is receiving enteral feeding. Remains on the COVID-19 cocktail including Decadron 6 mg IV push daily Lovenox 40 mg subcu daily Protonix 40 mg IV push daily and she is also on vitamin C. Remains on cefepime for underlying Moraxella catarrhalis pneumonia. Reevaluated today on 08/21/2021, patient remains in the ICU intubated and mechanically ventilated. She is on assist control rate of 30 tidal volume 400 FiO2 is at 80% and PEEP is at 16 after reviewing her ABG which showed a pO2 of 65 pCO2 45 pH of 7.44 I recommended decreasing FiO2 to 70%. Patient did not tolerate higher PEEP/18. Hence kept on a PEEP of 16. Patient remains on propofol at 20 fentanyl at 0.5, and she is not on Nimbex. Patient is arousable she opens her eyes only. But does not follow any other instructions. Her electrolytes are normal BUN is 62 creatinine 1.01 blood pressure seems to be high S1 as the patient has lower sedation and this was the dose of propofol goes down, hence I recommended adding clevidipine's to maintain adequate blood pressure hopefully 150 systolic. Chest x-ray continues to be about the same showing bilateral infiltrates. Medications list reviewed patient is on albuter ol HFA, vitamin C, cefepime 1 g every 12 hours, she is on Peridex, vitamin D, Celebrex was added today, Decadron 6 mg IV push daily NovoLog insulin and Levemir insulin. Levothyroxine 100 g daily Protonix 40 mg IV push daily and she is on zinc. Progress note dated 08/22/2021. This is a 76-year-old female who was admitted back on August 04. She was admitted with a diagnosis of coronavirus associated pneumonia. She came to the intensive care unit on August 05. She was intubated on August 05. The patient had a tracheostomy tube inserted on August 18, and will hopefully have a PEG tube placed on August 22. Patient remains on the mechanical ventilator. She is on the volume assist control mode, rate 32, tidal volume 400, FiO2 80%, and PEEP of 16. The patient's blood gases show pO2 70, pCO2 48, and a pH is 7.39. The patient's on propofol at 25 mcg/kg/m, saline at 20 mL an hour, fentanyl at 0.5 mcg/kg/h, tube feedings which are on hold, and vital AF at 34 mL an hour. That is goal. Current white count of 7.1, hemoglobin 9.7, hematocrit 30, and platelet count 175,000. Sodium 141, potassium 4.3, chlorides 111, CO2 28, anion gap 2, BUN 64, and creatinine 0.96. Sputum sampling on August 13 and on August 05, show evidence of Moraxella catarrhalis. Chest x-ray on August 22, show diffuse bilateral infiltrates, which are essentially unchanged. Progress note dated 08/23/2021. 76-year-old female, who was admitted back on August 04. She was admitted with a diagnosis of coronavirus associated pneumonia. She came to the intensive care unit on August 05. She was intubated on the same day. She had a tracheostomy tube inserted on August 18, and had a PEG tube placed on August 22. She remains on mechanical ventilator. She is on the volume assist control mode, rate 32, tidal volume 400, FiO2 85%, PEEP of 20. Blood gases show pO2 of 64, pCO2 of 50, pH is 7.36. The patient is on fentanyl 1 mcg/kg/h, propofol at 40 mcg/kg/m. She's getting saline at 20 mL an hour. She's also getting vital AF at 10 mL an hour, with a goal of 31 mL an hour. The patient will get some IV Lasix today. Current labs include a white count of 5.4, hemoglobin 8.8, plat elet count 160,000, and hematocrit of 27. Sodium 143, potassium 4, chlorides 113, CO2 26, anion gap 4, BUN 59, and creatinine 0.19. Chest x-ray shows diffuse bilateral infiltrates, consistent with coronavirus associated pneumonia. Progress note dated 08/24/2021. 76-year-old female, again seen in room 252. She was admitted way back on August 04. She was admitted with a diagnosis of coronavirus associated pneumonia. She came to the intensive care unit on August 05 area she was intubated on August 05. The patient had tracheostomy tube inserted on August 18, and a PEG tube placed on August 22. She remains on the mechanical ventilator. She is on the volume assist control mode, rate 32, tidal volume 400, FiO2 75%, and PEEP of 20. Blood gases show pO2 74, pCO2 of 51, and a pH is 7.30. The patient's on fentanyl at 1 mcg/kg/h, and propofol at 40 mcg/kg/m. The patient's getting saline at 20 mL an hour. She's getting vital AF at 23 mL an hour, which is goal. Today, we will attempt to wean the FiO2. White count 8.2, hemoglobin 9.9, hematocrit 30.9, and platelet count normal. Sodium 141, potassium 4, chlorides 111, CO2 25, anion gap 5, BUN 59, and creatinine 1.10. Chest x-ray shows diffuse bilateral infiltrates, which are largely unchanged. Progress note dated 08/25/2021. 76-year-old female seen again in room 252. The patient was admitted back on 08/04/2021. She was admitted with a diagnosis of coronavirus associated pneumonia and hypoxemic respiratory failure. She came to the intensive care unit on August 05, and was intubated on 08/05/2021. The patient had tracheostomy tube inserted on August 18, and a PEG tube was done on 08/22/2021. She remains on mechanical ventilator. She is on the volume assist control mode, rate 32, tidal volume 400, FiO2 60%, PEEP of 20. Blood gases show pO2 of 55, pCO2 of 51, and a pH is 7.34. Saturations are 88-90%. She is on saline at 20 mL an hour, fentanyl 1 mcg/kg/h, propofol at 40 mcg/kg/m, and vital AF at 23 mL an hour, which is goal. She will have a daily interruption of sedation today. Her nurse today is Shirin. White count of 7.5, and Lovenox 0.9, hematocrit 31.0, with a normal platelet count. Sodium 142, potassium 3.9, chlorides 111, CO2 26, anion gap 5, BUN 62, creatinine 1.23. Albumin is 2.6. Chest x-ray continues to show diffuse bilateral infiltrates consistent with coronavirus associated pneumonia. Progress note dated 08/26/2021. 76-year-old female, again seen in room 252. The patient was admitted back on 08/04/2021, with a diagnosis of coronavirus associated pneumonia, and hypoxemic respiratory failure. The patient remains in the intensive care unit. The patient was intubated on 08/05/2021, and had a tracheostomy tube inserted on August 18, and a PEG tube placed on 08/22/2021. Currently, she is on the volume assist control mode, rate 32, tidal volume 400, FiO2 60%, with a PEEP of 20. Blood gases show pO2 of 60, pCO2 51, and a pH is 7.35. The patient's getting saline at 20 mL an hour, fentanyl at 1.5 mcg/kg/h, vital AF, at 23 mL an hour which is goal, and propofol, at 40 mcg/kg/m. White count 8.6, hemoglobin 9.6, hematocrit 30, and platelet count 189,000. Sodium 141, calcium 3.9, chlorides 110, CO2 26, anion gap 5, BUN 63, and creatinine 1.30. Chest x-ray continues to show stable bilateral infiltrates. Chest x-ray is essentially unchanged. Objective - Vital Signs Vital signs: Vital Signs Temp 97.4 F L 08/26/21 08:00 Pulse 64 08/26/21 08:00 Resp 32 H 08/26/21 08:00 BP 92/56 08/26/21 00:00 Pulse Ox 89 L 08/26/21 08:00 Intake & Output 08/25/21 08/26/21 08/26/21 18:59 06:59 18:59 Intake Total 372.948 2012.673 99 Output Total 1270 420 85 Balance -382.312 592.673 14 Weight 104 kg 104 kg Intake: IV 253 276 46 Normal Saline 0.9 33 36 6 Pressure Bag @ 3mL/hr Sodium Chloride 0.9% 1, 220 240 40 000 ml @ 20 mls/hr IV . Q24H [facility] Rx#:[id number] Intake, IV Titration 291.688 393.673 Amount fentaNYL (PF). 1,000 mcg 99.257 101.654 In Sodium Chloride 0.9% 80 ml @ 0.5 MCG/KG/HR 4. 795 mls/hr IV .[id number] [facility] Rx#:[id number] propofoL 1,000 mg In 192.431 292.019 Empty Bag 1 bag @ Titrate IV .Q0M [facility] Rx#: [id number] Tube Feeding 253 283 23 Other 90 60 30 Output: Urine 1270 420 85 Other: Voiding Method Indwelling Catheter Indwelling Catheter ABP, PAP, CO, CI - Last Documented Arterial Blood Pressure 123/48 - Exam No acute distress, sedated and with a midline tracheostomy tube. Saturations are 88 - 90%. HEENT examination is grossly unremarkable. Neck supple. Full range of motion. No adenopathy thyromegaly or neck vein distention. Cardiovascular examination reveals regular rhythm rate. S1-S2 normal. No S3 or S4. No discernible murmur noted. Heart sounds are distant. Heart rate 64 bpm. Lungs reveal use bilateral rhonchi. No wheezes or crackles. Breath sounds equal. Abdomen soft bowel sounds are heard. No masses or tenderness. PEG tube noted. Extremities are intact. No cyanosis clubbing or edema. Skin is without rash or lesion. Neurologic examination cannot be adequately assessed as the patient's currently sedated. - Labs CBC & Chem 7: 08/26/21 03:14 08/26/21 03:14 Labs: Abnormal Lab Results - Last 24 Hours (Table) 08/25/21 08/25/21 08/25/21 Range/Units 13:08 18:27 23:19 RBC (3.80-5.40) m/uL Hgb (11.4-16.0) gm/dL Hct (34.0-46.0) % ABG pCO2 (35-45) mmHg ABG pO2 (83-108) mmHg ABG HCO3 (21-25) mmol/L ABG Total CO2 (19-24) mmol/L ABG O2 Saturation (94-97) % Chloride (98-107) mmol/L BUN (7-17) mg/dL Creatinine (0.52-1.04) mg/dL Glucose (74-99) mg/dL POC Glucose (mg/dL) 121 H 129 H 105 H (75-99) mg/dL 08/26/21 08/26/21 08/26/21 Range/Units 03:14 03:14 06:30 RBC 3.11 L (3.80-5.40) m/uL Hgb 9.6 L (11.4-16.0) gm/dL Hct 30.0 L (34.0-46.0) % ABG pCO2 51 H (35-45) mmHg ABG pO2 60 L (83-108) mmHg ABG HCO3 28 H (21-25) mmol/L ABG Total CO2 30 H (19-24) mmol/L ABG O2 Saturation 91.0 L (94-97) % Chloride 110 H (98-107) mmol/L BUN 63 H (7-17) mg/dL Creatinine 1.30 H (0.52-1.04) mg/dL Glucose 114 H (74-99) mg/dL POC Glucose (mg/dL) (75-99) mg/dL Assessment and Plan Assessment: Acute hypoxemic respiratory failure secondary to coronavirus associated pneumonia, status post intubation and mechanical ventilation on 08/05/2021, and tracheostomy, on August 18, and with PEG tube placement on August 22, 2021 Acute respiratory distress syndrome secondary to coronavirus associated pneumoni a. Elevated inflammatory marker secondary to coronavirus infection. Moraxella catarrhalis pneumonia. Metabolic encephalopathy. History of essential hypertension. Negative for DVT of the bilateral lower extremities. History of hyperlipidemia. History of diabetes mellitus. History of hypothyroidism, not well controlled. Plan: Plan dated 08/05/2021. The patient's on vitamin C, vitamin D3, and zinc. In addition, the patient's getting Decadron 6 mg a day, and Lovenox 40 mg subcu daily. We also added GOLDEN to the patient's regimen. The patient may end up requiring intubation and mechanical ventilation. She is quite ill, and she is hypoxemic despite being on BiPAP at 100%. Additional recommendations and suggestions are forthcoming. Prognosis is guarded. We will continue to follow make recommendations where appropriate. Plan dated 08/07/2021. The patient remains on appropriate medications including vitamin C, vitamin D3, and zinc. In addition, the patient is getting level thyroxine 100 g daily down the NG tube. The patient remains on Lovenox 40 mg a day, and Decadron 6 mg a day. She also is getting GOLDEN, 4 mg a day. We will continue to follow make recommendations were appropriate. Prognosis is guarded. Her PEEP was increased to 20 cm water, in an attempt to reduce the FiO2. Additional recommendations and suggestions are forthcoming. Plan dated 08/22/2021. The patient's PEEP was increased from 16 to 20. We will attempt to wean the FiO2. We'll DC the cefepime. She remains on propofol and fentanyl. She will resume tube feedings, once the PEG tube has been inserted. Additional recommendations and suggestions are forthcoming. Prognosis is guarded. We will continue to follow make recommendations where appropriate. The patient should have a PEG tube inserted today. Medications are reviewed. X-ray and labs are reviewed. Plan dated 08/23/2021. The patient did have her PEG tube placed yesterday. She's currently remains on fentanyl and propofol. She is not on Nimbex. The patient's blood gases have been reviewed. The patient continues on tube feeds. He will be increase to goal sometime later today. Because she had not, she gets Lasix 40-60 mg IV push. Additional recommendations and suggestions are forthcoming. We will c maricruz to follow make recommendations where appropriate. Prognosis is guarded. Plan dated 08/24/2021. The patient now has a tracheostomy tube, and a PEG tube. The patient remains on fentanyl and propofol. The patient is not currently on any antibiotics. The patient was weaned off the Nimbex. The patient received tube feeds. We will attempt to wean the FiO2. The patient's on Decadron, and Lovenox. The patient remains on vitamin C, vitamin D3, and zinc. Additional recommendations and s uggestions are forthcoming. Prognosis is guarded. We will continue to follow make recommendations where appropriate. Plan dated 08/25/2021. Currently, the patient is about the same today as she was yesterday. She will have a daily interruption of sedation today. She is likely not ready to wean from mechanical ventilation, given her borderline blood gases, FiO2 60%, and her PEEP of 20. We will continue to follow make recommendations were appropriate. The patient continues on Decadron and Lovenox. She also remains on vitamin C, vitamin D3, and zinc. She has completed treatment for her Moraxella catarrhalis pulmonary infection. Prognosis is guarded. Plan dated 08/26/2021. The patient remains about the same. We will do a daily interruption of sedation although, given the fact that she is on 60% FiO2, and a PEEP of 20, it is unlikely she will require or be able to tolerate a spontaneous breathing trial. The patient remains on fentanyl, propofol. She is receiving tube remains. We will continue to follow make recommendations where appropriate. Medications, chest x-ray, and labs are all reviewed. The patient remains on Lovenox, Decadron, and vitamins. Additional recommendations and suggestions are forthcoming. The patient's currently not on any antibiotics. Prognosis is guarded. Time with Patient: Greater than 30
[2021-08-26 12:02] LABS: Glucose,Whole Blood 143 mg/dL (75-99)
--- NOTE | 2021-08-26 12:30 | P.PN ---
Subjective Progress Note Date: 08/26/21 This is a 76-year-old female who presented to emergency room with cough, congestion, dyspnea and weakness and fatigue over several weeks. Approximately week ago patient took a home Covid test which indicated that she was positive. She has not received Covid vaccine or treatment for the positive Covid test. When symptoms worsened she decided to present to the ER for evaluation and treatment. She was initially placed on BiPAP in the intensive care unit and subsequently been intubated. She is currently paralyzed with cisatracurium, sedated with propofol and utilizing Toradol IV push for pain management. Currently mechanically ventilated on 80% FiO2. Patient is afebrile 96.9, respiratory rate of 26, blood pressure is stable at 109/51, maintain oxygen saturation of 90% and entitle CO2 of 28. Most recent set of vital signs WC count of 15.5, hematocrit of 35.6, hemoglobin 12.0, platelet count 119. Chemistry panel reveals a sodium 138, potassium 3.8, BUN of 19, creatinine 0.72, GFR 83, AST of 99, ELT 106, alk phos 131, LDH 847. TSH of 8.37. T4 0.5, pro- calcitonin 0.34 08/08/2021 remains mechanical ventilator-dependent, FiO2 decreased to 65%, PEEP remains at 20. Continues on Nimbex and diprovan drips. Chest x-ray reported patchy bilateral infiltrate with diffuse interstitial pattern, tiny right-sided pleural effusion, received Lasix. Maintained on Rocephin (Moraxella catarrhalis in the sputum) , Covid cocktail with Baricitinib discontinued. Blood sugars elevated. Afebrile, WBC 13.3. Pro-calcitonin 0.34. 08/09/2021 continues on FiO2 65% with PEEP of 20, Nimbex and diprovan drips. Chest x-ray reporting persistent patchy bilateral infiltrate with diffuse interstitial pattern. Received additional Lasix today Blood sugars elevated, improving, A1c 8.4. Afebrile, WBC 14.3. D-dimer 0.77, ferritin increased to 2512, LDH decreased to 606, CRP increased to 21.2. LFTs decreasing with the exception of alkaline phosphatase, increased to 171. ProBNP 453. Receiving tube feeds to call, tolerating well with minimal to no residuals, stooling. 08/10/2021 remains vent dependent, FiO2 60%/+18 of PEEP. Maintained on Nimbex and diprovan drips. Chest x-ray noted, unchanged. Currently afebrile, T-max 99.1, WBC trending down, 12.7. BUN 24, and 0.74. Repeat pro-calcitonin 0.31. Additional Levemir added to med regimen yesterday, Blood sugars controlled. Received Lasix IV push yesterday again, diuresed well with 24-hour I&O reflecting a negative fluid balance. Sodium within normal limits, 142. 08/11/2021 yesterday patient of placed on Nimbex holiday, during the night unable to tolerate became asynchronous with the ventNimbex resumed. Diprovan drip continues. Maintained on FiO2 65% with PEEP decreased to 17. Maintained on Rocephin ,Covid cocktail. Chest x-ray reporting stable diffuse bilateral infiltrate. Inflammatory markers decreasing.Tolerating tube feeds minimal to no residual. Levemir increased yesterday with blood sugars controlled. Afebrile. 08/12/2021 patient was given another paralytic holiday yesterday and continues off of Nimbex. During the night, difficulty maintaining O2 sats, cuff leak discovered, required higher FiO2. Maintained on diprovan. Currently FIO2 90%, PEEP of 16. Chest x-ray reporting bilateral moderate pulmonary edema, possibly worsening, antibiotics adjusted, now on cefepime. Maintained on Covid cocktail. Blood sugars controlled. Renal function stable. 08/15/2021 remains vent dependent, FiO2 75%/+16 of PEEP. Maintained on diprovan and fentanyl drips. Currently off paralytics. Sedation holiday attempted yesterday with minimal improvement of mental status, no response to any stimuli reported. Chest x-ray reporting persistent bilateral airspace disease. Continues on cefepime. Tolerating tube feeds at goal, with minimal to no residuals, blood sugars controlled. Inflammatory markers mildly increased. 08/16/2021 remains vent dependent, FiO2 65%/+16 of PEEP. Chest x-ray reporting diffuse interstitial and alveolar infiltrates. Maintained on diprovan and fentanyl drips. Electrician Master currently discussing treatment of trach and peg with family. T-max 99.1, WBC 15.7. D-dimer, CRP decreased, LDH increased. 08/17/2021 vent dependent, FiO2 50%/+16 of PEEP. Chest x-ray reporting diffuse interstitial and alveolar infiltrates. Tube feeds and lovenox on hold. Maintained on IV fluid hydration D5/45. Scheduled for trach and peg today. T-max 99.7, WBC 13.5. Creatinine increased up to 1.15. 08/18/2021 Remains vent dependent, FiO2 70+16 of PEEP.Maintained on diprovan, fentanyl. PEG tube attempted yesterday, surgeon unable to pass scope. Patient is scheduled for tracheostomy and potential PEG tube placement today. 08/19/2021 Tracheostomy placed yesterday. Cuff leak present, TV increased. Maintained on 90% FiO2/+16 of PEEP. Chest x-ray reporting bilateral infiltrates.Continues on Nimbex, fentanyl and diprovan. PICC line placed. Tolerating tube feeds via OG of vital AF at goal of 31ml per hour. Sodium normalized, renal function stable. Blood sugars better controlled. 08/22/2021 scheduled for PEG tube placement today. Vent dependent FiO2 80%/PEEP +20. Chest x-ray reporting unchanged bilateral airspace disease. Maintained on fentanyl and diprovan drips. Afebrile, normal WBC. BUN 64, creatinine 0.96. Blood sugars controlled. 08/23/2021 PEG tube placed yesterday, tolerated procedure well. Tube feeds initiated, tolerated well with minimal to no residuals. FiO2 85%/PEEP at 20. This x-ray reporting unchanged pulmonary interstitial and airspace edema .Maintained on diprovan and fentanyl. 08/24/2021 FiO2 75%/last 20 PEEP. Maintained on fentanyl, diprovan. Chest x- ray reporting persistent bilateral airspace disease, similar .Tolerating tube feeds at goal with minimal to no residual. Afebrile, normal WBC. Hemoglobin 9.9, platelets 177. Creatinine 1.1. 08/25/2021 FiO2 60%/+20 of PEEP. Chest x-ray reporting hyperinflation, persistent diffuse groundglass with slight improvement in confluent lower lung opacities. Maintained on diprovan fentanyl drips. 08/26/2021 FiO2 and PEEP unchanged, 60%/+20. Chest x-ray reporting stable bilateral infiltrates. Hemoglobin 9.6, platelets 189.Continues on diprovan ,fentanyl drips. Tolerating tube feeds at goal with minimal to no residuals. Creatinine increased to 1.3 .Afebrile, normal WBC. Blood sugars controlled. Objective - Vital Signs Vital signs: Vital Signs Temp 97.4 F L 08/26/21 08:00 Pulse 65 08/26/21 12:00 Resp 32 H 08/26/21 12:00 BP 92/56 08/26/21 00:00 Pulse Ox 90 L 08/26/21 12:00 Intake & Output 08/25/21 08/26/21 08/26/21 18:59 06:59 18:59 Intake Total 870.546 3447.673 420.960 Output Total 1270 420 860 Balance -382.312 592.673 -439.040 Weight 104 kg 104 kg Intake: IV 253 276 138 Pressure Bag 0.9% Sodium 33 36 18 Chloride @ 3mL/hr Sodium Chloride 0.9% 1, 220 240 120 000 ml @ 20 mls/hr IV . Q24H [facility] Rx#:[id number] Intake, IV Titration 291.688 393.673 137.960 Amount fentaNYL (PF). 1,000 mcg 99.257 101.654 98.242 In Sodium Chloride 0.9% 80 ml @ 0.5 MCG/KG/HR 4. 795 mls/hr IV .[id number] [facility] Rx#:[id number] propofoL 1,000 mg In 192.431 292.019 39.718 Empty Bag 1 bag @ Titrate IV .Q0M [facility] Rx#: [id number] Tube Feeding 253 283 115 Other 90 60 30 Output: Urine 1270 420 860 Other: Voiding Method Indwelling Catheter Indwelling Catheter Indwelling Catheter ABP, PAP, CO, CI - Last Documented Arterial Blood Pressure 146/55 - Exam - Exam: limited Exam r/t to COVID, intubated GENERAL: intubated, sedated, NAD Lungs: Mechanically ventilated Heart: Regular rate and rhythm per electronic device monitor Abdomen: Soft, nondistended Extremities: No edema Neurological: Sedated - Labs CBC & Chem 7: 08/26/21 03:14 08/26/21 03:14 Labs: Abnormal Lab Results - Last 24 Hours (Table) 08/25/21 08/25/21 08/25/21 Range/Units 13:08 18:27 23:19 RBC (3.80-5.40) m/uL Hgb (11.4-16.0) gm/dL Hct (34.0-46.0) % ABG pCO2 (35-45) mmHg ABG pO2 (83-108) mmHg ABG HCO3 (21-25) mmol/L ABG Total CO2 (19-24) mmol/L ABG O2 Saturation (94-97) % Chloride (98-107) mmol/L BUN (7-17) mg/dL Creatinine (0.52-1.04) mg/dL Glucose (74-99) mg/dL POC Glucose (mg/dL) 121 H 129 H 105 H (75-99) mg/dL 08/26/21 08/26/21 08/26/21 Range/Units 03:14 03:14 06:30 RBC 3.11 L (3.80-5.40) m/uL Hgb 9.6 L (11.4-16.0) gm/dL Hct 30.0 L (34.0-46.0) % ABG pCO2 51 H (35-45) mmHg ABG pO2 60 L (83-108) mmHg ABG HCO3 28 H (21-25) mmol/L ABG Total CO2 30 H (19-24) mmol/L ABG O2 Saturation 91.0 L (94-97) % Chloride 110 H (98-107) mmol/L BUN 63 H (7-17) mg/dL Creatinine 1.30 H (0.52-1.04) mg/dL Glucose 114 H (74-99) mg/dL POC Glucose (mg/dL) (75-99) mg/dL 08/26/21 Range/Units 11:41 RBC (3.80-5.40) m/uL Hgb (11.4-16.0) gm/dL Hct (34.0-46.0) % ABG pCO2 (35-45) mmHg ABG pO2 (83-108) mmHg ABG HCO3 (21-25) mmol/L ABG Total CO2 (19-24) mmol/L ABG O2 Saturation (94-97) % Chloride (98-107) mmol/L BUN (7-17) mg/dL Creatinine (0.52-1.04) mg/dL Glucose (74-99) mg/dL POC Glucose (mg/dL) 143 H (75-99) mg/dL Assessment and Plan Assessment: Acute Covid pneumonia, sputum culture reporting Moraxella Catarrhalis Acute hypoxic respiratory failure secondary to the above, mechanical ventilator dependent, status post tracheostomy and PEG tube placement. ARDS secondary to acute COVID-19 pneumonia Diabetes mellitus type 2, hyperglycemic, hemoglobin A1c 8.4 Hypothyroidism Essential hypertension Hyperlipidemia Metabolic encephalopathy, multifactorial, secondary to all the above Plan: Continue on current medication regime ,monitoring and symptomatic treatment. Covid cocktail. Sedation holiday pending. ICU management as per i ntensivist. Prognosis guarded related to multiple complex medical issues. The impression and plan of care has been dictated as directed. : I performed a history and examination of this patient, discussed the same with the dictator. I agree with the dictator's note ,documented as a scribe. Any additional findings or plans will be noted.
[2021-08-26] MEDS ORDERED: bisacodyL 10 MG SUPP RECTAL STA (14:28)
--- NOTE | 2021-08-26 14:30 | P.PN ---
Subjective Progress Note Date: 08/26/21 CHIEF COMPLAINT: COVID-19 pneumonia HISTORY OF PRESENT ILLNESS: Patient remains in the ICU intubated and on mechanical ventilation. Patient is status post PEG and trach placement. Per nursing no bowel movement reported. Patient did have 110 mL residual reported. Tube feeds are currently at goal rate. Afebrile. WBC 8.6 hemoglobin 9.6 PHYSICAL EXAM: VITAL SIGNS: Reviewed. GENERAL: Well-developed in no acute distress. HEENT: No sclera icterus. Moist buccal mucosa. Head is atraumatic, normocep halic. Trachea as a site clean dry and intact ABDOMEN: Soft. Nondistended. Nontender. PEG tube site clean dry and intact NEUROLOGIC: intubated and sedated ASSESSMENT: 1. Acute hypoxic respiratory failure secondary to COVID-19 pneumonia requiring mechanical ventilation status post tracheostomy placement 2. Severe protein calorie malnutrition status post PEG tube placement PLAN: -Continue tube feedings -Give Dulcolax suppository for constipation -Continue to monitor tracheostomy and PEG tube site -Continue ICU management -Continue supportive care Physician Infantry Operations Specialist note has been reviewed by physician. Signing provider agrees with the documented findings, assessment, and plan of care. Objective - Vital Signs Vital signs: Vital Signs Temp 97.4 F L 08/26/21 08:00 Pulse 65 08/26/21 12:00 Resp 32 H 08/26/21 12:00 BP 92/56 08/26/21 00:00 Pulse Ox 90 L 08/26/21 12:00 Intake & Output 08/25/21 08/26/21 08/26/21 18:59 06:59 18:59 Intake Total 790.059 8489.673 420.960 Output Total 1270 420 860 Balance -382.312 592.673 -439.040 Weight 104 kg 104 kg Intake: IV 253 276 138 Pressure Bag 0.9% Sodium 33 36 18 Chloride @ 3mL/hr Sodium Chloride 0.9% 1, 220 240 120 000 ml @ 20 mls/hr IV . Q24H [facility] Rx#:[id number] Intake, IV Titration 291.688 393.673 137.960 Amount fentaNYL (PF). 1,000 mcg 99.257 101.654 98.242 In Sodium Chloride 0.9% 80 ml @ 0.5 MCG/KG/HR 4. 795 mls/hr IV .[id number] [facility] Rx#:[id number] propofoL 1,000 mg In 192.431 292.019 39.718 Empty Bag 1 bag @ Titrate IV .Q0M [facility] Rx#: [id number] Tube Feeding 253 283 115 Other 90 60 30 Output: Urine 1270 420 860 Other: Voiding Method Indwelling Catheter Indwelling Catheter Indwelling Catheter ABP, PAP, CO, CI - Last Documented Arterial Blood Pressure 146/55 - Labs CBC & Chem 7: 08/26/21 03:14 08/26/21 03:14 Labs: Abnormal Lab Results - Last 24 Hours (Table) 08/25/21 08/25/21 08/25/21 Range/Units 13:08 18:27 23:19 RBC (3.80-5.40) m/uL Hgb (11.4-16.0) gm/dL Hct (34.0-46.0) % ABG pCO2 (35-45) mmHg ABG pO2 (83-108) mmHg ABG HCO3 (21-25) mmol/L ABG Total CO2 (19-24) mmol/L ABG O2 Saturation (94-97) % Chloride (98-107) mmol/L BUN (7-17) mg/dL Creatinine (0.52-1.04) mg/dL Glucose (74-99) mg/dL POC Glucose (mg/dL) 121 H 129 H 105 H (75-99) mg/dL 08/26/21 08/26/21 08/26/21 Range/Units 03:14 03:14 06:30 RBC 3.11 L (3.80-5.40) m/uL Hgb 9.6 L (11.4-16.0) gm/dL Hct 30.0 L (34.0-46.0) % ABG pCO2 51 H (35-45) mmHg ABG pO2 60 L (83-108) mmHg ABG HCO3 28 H (21-25) mmol/L ABG Total CO2 30 H (19-24) mmol/L ABG O2 Saturation 91.0 L (94-97) % Chloride 110 H (98-107) mmol/L BUN 63 H (7-17) mg/dL Creatinine 1.30 H (0.52-1.04) mg/dL Glucose 114 H (74-99) mg/dL POC Glucose (mg/dL) (75-99) mg/dL 08/26/21 Range/Units 11:41 RBC (3.80-5.40) m/uL Hgb (11.4-16.0) gm/dL Hct (34.0-46.0) % ABG pCO2 (35-45) mmHg ABG pO2 (83-108) mmHg ABG HCO3 (21-25) mmol/L ABG Total CO2 (19-24) mmol/L ABG O2 Saturation (94-97) % Chloride (98-107) mmol/L BUN (7-17) mg/dL Creatinine (0.52-1.04) mg/dL Glucose (74-99) mg/dL POC Glucose (mg/dL) 143 H (75-99) mg/dL
[2021-08-26 19:20] LABS: Glucose,Whole Blood 131 mg/dL (75-99)
[2021-08-26 20:20] LABS: Glucose,Whole Blood 121 mg/dL (75-99)
[2021-08-26] MEDS: SODIUM CHLORIDE 0.9% 1,000 ML IV SCH (21:02)
[2021-08-26 23:32] LABS: Glucose,Whole Blood 104 mg/dL (75-99)
[2021-08-27] MEDS: ALBUTEROL HFA INHALER INHALATION SCH ×7 (00:12→23:29)
[2021-08-27 04:26] LABS: Basophils % (A) 0 %; Eosinophils # (A) 0.5 k/uL (0-0.7); Eosinophils % (A) 6 %; HCT 33.1 % (34.0-46.0); HGB 10.5 gm/dL (11.4-16.0); Hypochromasia Slight; Lymphocytes # (A) 0.6 k/uL (1.0-4.8); Lymphocytes % (A) 7 %; MCH 30.7 pg (25.0-35.0); MCHC 31.9 g/dL (31.0-37.0); MCV 96.4 fL (80.0-100.0); Mean Platelet Volume 8.8; Monocytes # (A) 0.7 k/uL (0-1.0); Monocytes % (A) 8 %; Neutrophils # (A) 6.6 k/uL (1.3-7.7); Neutrophils % (A) 77 %; Platelet Count 201 k/uL (150-450); RBC 3.43 m/uL (3.80-5.40); RDW 15.6 % (11.5-15.5); WBC 8.5 k/uL (3.8-10.6)
[2021-08-27 04:37] LABS: Albumin 2.7 g/dL (3.5-5.0); Calcium 9.5 mg/dL (8.4-10.2); Potassium 4.1 mmol/L (3.5-5.1); Total Bilirubin 0.3 mg/dL (0.2-1.3); Total Protein 6.1 g/dL (6.3-8.2)
[2021-08-27 05:21] LABS: Glucose,Whole Blood 110 mg/dL (75-99)
[2021-08-27] MEDS: INSULIN ASPART (NovoLOG) 100 UNIT/ML VIAL SQ SCH ×3 (05:47→17:38)
[2021-08-27 05:58] LABS: ABG Base Excess 1.7 mmol/L; ABG HCO3 27 mmol/L (21-25); ABG PCO2 50 mmHg (35-45); ABG PH 7.35 (7.35-7.45); ABG PO2 73 mmHg (83-108); ABG TCO2 29 mmol/L (19-24)
[2021-08-27] MEDS: fentaNYL (PF). 1,000 MCG in SODIUM CHLORIDE 0.9% 80 ML IV SCH ×3 (06:06→17:40)
[2021-08-27] MEDS: LEVOTHYROXINE 100 MCG TAB OG-TUBE SCH (06:21)
[2021-08-27 06:35] LABS: Allen Test Performed? No
[2021-08-27] MEDS: INSULIN DETEMIR (LEVEMIR) 100 UNIT/ML SYR SQ SCH ×2 (08:58→21:40)
[2021-08-27] MEDS: CHLORHEXIDINE GLUCONATE 15 ML CUP MUCOUS MEM SCH ×2 (08:59→19:48)
[2021-08-27] MEDS: CHOLECALCIFEROL 125 MCG (5000 IU) TABLET PO SCH (08:59)
[2021-08-27] MEDS: ZINC SULFATE 220 MG CAP PO SCH (08:59)
[2021-08-27] MEDS: ENOXAPARIN 40 MG/0.4 ML SYRINGE SQ SCH (08:59)
[2021-08-27] MEDS: DEXAMETHASONE SOD PHOSPHATE 10 MG/ML 1 ML VIAL IVP SCH (08:59)
[2021-08-27] MEDS: ASCORBIC ACID 500 MG TAB PO SCH (08:59)
[2021-08-27] MEDS: FUROSEMIDE 10 MG/ML 4 ML VIAL IV SCH (09:00)
[2021-08-27] MEDS: PANTOPRAZOLE 40 MG/10 ML VIAL IVP SCH (09:00)
--- NOTE | 2021-08-27 10:46 | P.PN ---
Subjective Progress Note Date: 08/27/21 Principal diagnosis: Respiratory failure. This is a 76-year-old female seen in the emergency room, on August 04. She came in with complaints of shortness of breath and difficulty breathing. In addition, she had cough, chest congestion, generalized weakness, lightheadedness, his been sick for about a month or so. She apparently tested positive for coronavirus on July 30. Currently, she is on BiPAP, with settings of 15/5 and 100%. She's getting saline at 80 mL an hour. She has a history of hyperlipidemia, diabetes, hypertension, and hypothyroidism. White count 17, hemoglobin 13.7, hematocrit 40.6, and platelet count 133,000. D-dimer was 0.97. Sodium 133, potassium 4, chlorides 100, CO2 24, anion gap 9, BUN 18, creatinine 0.6. LDH was 1477 and C-reactive protein was 15.9. Chest x-ray showed elevation of the right diaphragm, and diffuse bilateral airspace disease consistent with coronavirus pneumonia. On today's evaluation on 08/06/2021 patient is seen in the intensive care unit. Patient was admitted on 08/04/2021 with symptoms of COVID-19 ammonia that have been present for about a month's, patient had a positive home test on 07/30/2021. Patient's hypoxia and dyspnea has significantly progressed, and intubated on 08/05/2021. While she is sedated and intubated on assist control mode of ventilation with a rate of 26, tidal volume is 400, FiO2 of 90% and PEEP of 15, this morning's blood gas shows pO2 of 78, pCO2 of 40, and pH of 7.41. This was done on FiO2 of 100% and FiO2 had since been dropped down to 90%. Patient is maintaining O2 saturations between 96-98%. Peak airway pressure is 34, plateau pressure is 31. Currently on 0.9 at 80 ML per hour, Diprivan is at 30 mics per kilo per minute, Nimbex is at 2 mics per kilo per minute. Today's chest x-ray shows bilateral multifocal and confluent opacities consistent with COVID-19 pneumonia. Today's labs have been reviewed, white blood cell count is improving and is down to 15.4, hemoglobin is 12.3, serum sodium is improved and is up to 135 compared to 129 on admission, potassium is 4.1, BUN is 21 creatinine is 0.78 yesterday's LFTs have been reviewed and AST was 122, ALT is 74, applying phosphatases 83, LDH was 1477, and CRP was 15.9 proBNP was within normal limits at 181 bronchial Eleanor level was 0.48, borderline, sputum cultures have been sent and showed few PMNs, many gram-negative diplococci. Final culture is pending. Blood culturef show no growth thus far. No dy namically patient is slightly bradycardic in the sinus mechanism with a rate of 51, blood pressure is 102/57, she was slightly hypotensive she was given a liter bolus this morning, she is getting another liter bolus infusing right now for low urine output. Patient is currently receiving Decadron 6 mg daily, she is on Baricitinib, Lovenox 40 mg daily, and COVID-19 vitamins. [facility] was 0.97. Progress note dated 08/07/2021. 76-year-old female, again seen in the intensive care unit, room 252. She remains on the mechanical ventilator. The patient was intubated on August 05 for respiratory failure. She is on the volume assist control mode, rate 26, tidal volume 400, FiO2 80%, and PEEP of 15. Blood gases show a PaO2 of 68, pCO2 45, and a pH of 7.34. She is on propofol at 40 mcg/kg/m, Nimbex at 1.5 mcg/kg/m, saline at 80 mL an hour, and vital AF at 29 mL an hour, which is goal. White count 15.5, hemoglobin 12, hematocrit 35.6, platelet count 119,000. D- dimer is 0.75. Fibrinogen level DCXII. Sodium 138, potassium 3.8, chlorides 110, CO2 23, anion gap 5, BUN 19, creatinine 0.72. LDH is 847. C-reactive protein is 18.7, and her TSH is 8.370. Chest x-ray shows diffuse bilateral infiltrates. Reevaluated today on 08/18/2021, patient remains in the ICU, intubated and mechanically ventilated. Patient is on assist control rate of 3 to tidal volume 325 FiO2 70% PEEP of 16. ABG is marginal with a pO2 of 60 pCO2 of 70 pH of 7.32, hence no changes were made on her ventilator settings. Patient remains on a fall at 50 mcg/kg/m fentanyl 1 mcg/kg/h she is on D5 4500 mL per hour. CBC is relatively unremarkable hemoglobin is 10.1 electrolytes and renal profile are normal. Patient was seen by general surgery yesterday, and could not pass a scope to be able to perform at PEG tube placement. Hence the patient is scheduled today for tracheostomy, maybe PEG tube placement could be done today in the operating room. At any rate patient is not ready for any weaning, and apparently the family had no problem proceeding with tracheostomy and PEG tube placement. Her overall clinical status remains marginal at best. Reevaluated today on 08/19/2021, patient remains in the ICU, intubated and mechanically ventilated. Patient is on assist control rate of 32, tidal volume 325 and today I have increased the volume to 400 mostly because of ongoing cough leak from the new tracheostomy she is on 90% FiO2, and PEEP of 16. Chest x-ray continues to show bilateral infiltrates, not much of a change. Patient underwent uneventful tracheostomy yesterday. Her ABG this morning showed a pO2 of 74 pCO2 of 63 pH of 7.35, and not much of a change on the ventilator settings except increasing the tidal volume up to 400. I did cut down her FiO2 to 70%, and instructed nursing to keep her O2 saturation between 89 and 91%. She is on propofol at 25 mcg/kg/m fentanyl 1 mcg/kg/h she is also on Nimbex, and on IV fluid 0.9 normal saline at 20 mL per hour. Patient is scheduled to have a PICC line today. And will DC the central line. After a PICC line placement. Patient remains on enteral feeding via orogastric tube, receiving vital AF and 31 mL per hour. Electrolytes and renal profile are normal today. Remains on the COVID-19 cocktail including ascorbic acid, she is also on Decadron 6 mg IV push daily, Lovenox 40 mg subcu daily, Protonix 40 mg daily IV push, zinc, patient is also on cefepime for underlying Moraxella catarrhalis pneumonia. Reevaluated today on 08/20/2021, patient remains in the ICU, intubated and mechanically ventilated. She is on assist control rate of 3 to tidal volume 400 FiO2 75% PEEP of 16. ABG showed a pO2 of 54 DC O2 of 45 pH of 7.46, hence The patient on FiO2 of 75%, and no other vent changes were made. Patient continues to have tracheostomy, she underwent tracheostomy on 08/17/21, minimal air leak noted from the tracheostomy, however seems to be improving, and she is achieving near her septal volumes. Patient is on fentanyl at 20 mcg/kg/h propofol 25 mcg/kg/m and she is on vital AF. Rate 34. Patient is not on any paralytics. Hence I would assess mental status hopefully today of or possibly a lower dose of sedation. CBC is relatively normal hemoglobin is 9.5. Electrolytes are normal, BUN is 64 creatinine 0.97. Patient is receiving enteral feeding. Remains on the COVID-19 cocktail including Decadron 6 mg IV push daily Lovenox 40 mg subcu daily Protonix 40 mg IV push daily and she is also on vitamin C. Remains on cefepime for underlying Moraxella catarrhalis pneumonia. Reevaluated today on 08/21/2021, patient remains in the ICU intubated and mechanically ventilated. She is on assist control rate of 30 tidal volume 400 FiO2 is at 80% and PEEP is at 16 after reviewing her ABG which showed a pO2 of 65 pCO2 45 pH of 7.44 I recommended decreasing FiO2 to 70%. Patient did not tolerate higher PEEP/18. Hence kept on a PEEP of 16. Patient remains on propofol at 20 fentanyl at 0.5, and she is not on Nimbex. Patient is arousable she opens her eyes only. But does not follow any other instructions. Her electrolytes are normal BUN is 62 creatinine 1.01 blood pressure seems to be high S1 as the patient has lower sedation and this was the dose of propofol goes down, hence I recommended adding clevidipine's to maintain adequate blood pressure hopefully 150 systolic. Chest x-ray continues to be about the same showing bilateral infiltrates. Medications list reviewed patient is on albuter ol HFA, vitamin C, cefepime 1 g every 12 hours, she is on Peridex, vitamin D, Celebrex was added today, Decadron 6 mg IV push daily NovoLog insulin and Levemir insulin. Levothyroxine 100 g daily Protonix 40 mg IV push daily and she is on zinc. Progress note dated 08/22/2021. This is a 76-year-old female who was admitted back on August 04. She was admitted with a diagnosis of coronavirus associated pneumonia. She came to the intensive care unit on August 05. She was intubated on August 05. The patient had a tracheostomy tube inserted on August 18, and will hopefully have a PEG tube placed on August 22. Patient remains on the mechanical ventilator. She is on the volume assist control mode, rate 32, tidal volume 400, FiO2 80%, and PEEP of 16. The patient's blood gases show pO2 70, pCO2 48, and a pH is 7.39. The patient's on propofol at 25 mcg/kg/m, saline at 20 mL an hour, fentanyl at 0.5 mcg/kg/h, tube feedings which are on hold, and vital AF at 34 mL an hour. That is goal. Current white count of 7.1, hemoglobin 9.7, hematocrit 30, and platelet count 175,000. Sodium 141, potassium 4.3, chlorides 111, CO2 28, anion gap 2, BUN 64, and creatinine 0.96. Sputum sampling on August 13 and on August 05, show evidence of Moraxella catarrhalis. Chest x-ray on August 22, show diffuse bilateral infiltrates, which are essentially unchanged. Progress note dated 08/23/2021. 76-year-old female, who was admitted back on August 04. She was admitted with a diagnosis of coronavirus associated pneumonia. She came to the intensive care unit on August 05. She was intubated on the same day. She had a tracheostomy tube inserted on August 18, and had a PEG tube placed on August 22. She remains on mechanical ventilator. She is on the volume assist control mode, rate 32, tidal volume 400, FiO2 85%, PEEP of 20. Blood gases show pO2 of 64, pCO2 of 50, pH is 7.36. The patient is on fentanyl 1 mcg/kg/h, propofol at 40 mcg/kg/m. She's getting saline at 20 mL an hour. She's also getting vital AF at 10 mL an hour, with a goal of 31 mL an hour. The patient will get some IV Lasix today. Current labs include a white count of 5.4, hemoglobin 8.8, plat elet count 160,000, and hematocrit of 27. Sodium 143, potassium 4, chlorides 113, CO2 26, anion gap 4, BUN 59, and creatinine 0.19. Chest x-ray shows diffuse bilateral infiltrates, consistent with coronavirus associated pneumonia. Progress note dated 08/24/2021. 76-year-old female, again seen in room 252. She was admitted way back on August 04. She was admitted with a diagnosis of coronavirus associated pneumonia. She came to the intensive care unit on August 05 area she was intubated on August 05. The patient had tracheostomy tube inserted on August 18, and a PEG tube placed on August 22. She remains on the mechanical ventilator. She is on the volume assist control mode, rate 32, tidal volume 400, FiO2 75%, and PEEP of 20. Blood gases show pO2 74, pCO2 of 51, and a pH is 7.30. The patient's on fentanyl at 1 mcg/kg/h, and propofol at 40 mcg/kg/m. The patient's getting saline at 20 mL an hour. She's getting vital AF at 23 mL an hour, which is goal. Today, we will attempt to wean the FiO2. White count 8.2, hemoglobin 9.9, hematocrit 30.9, and platelet count normal. Sodium 141, potassium 4, chlorides 111, CO2 25, anion gap 5, BUN 59, and creatinine 1.10. Chest x-ray shows diffuse bilateral infiltrates, which are largely unchanged. Progress note dated 08/25/2021. 76-year-old female seen again in room 252. The patient was admitted back on 08/04/2021. She was admitted with a diagnosis of coronavirus associated pneumonia and hypoxemic respiratory failure. She came to the intensive care unit on August 05, and was intubated on 08/05/2021. The patient had tracheostomy tube inserted on August 18, and a PEG tube was done on 08/22/2021. She remains on mechanical ventilator. She is on the volume assist control mode, rate 32, tidal volume 400, FiO2 60%, PEEP of 20. Blood gases show pO2 of 55, pCO2 of 51, and a pH is 7.34. Saturations are 88-90%. She is on saline at 20 mL an hour, fentanyl 1 mcg/kg/h, propofol at 40 mcg/kg/m, and vital AF at 23 mL an hour, which is goal. She will have a daily interruption of sedation today. Her nurse today is Shirin. White count of 7.5, and Lovenox 0.9, hematocrit 31.0, with a normal platelet count. Sodium 142, potassium 3.9, chlorides 111, CO2 26, anion gap 5, BUN 62, creatinine 1.23. Albumin is 2.6. Chest x-ray continues to show diffuse bilateral infiltrates consistent with coronavirus associated pneumonia. Progress note dated 08/26/2021. 76-year-old female, again seen in room 252. The patient was admitted back on 08/04/2021, with a diagnosis of coronavirus associated pneumonia, and hypoxemic respiratory failure. The patient remains in the intensive care unit. The patient was intubated on 08/05/2021, and had a tracheostomy tube inserted on August 18, and a PEG tube placed on 08/22/2021. Currently, she is on the volume assist control mode, rate 32, tidal volume 400, FiO2 60%, with a PEEP of 20. Blood gases show pO2 of 60, pCO2 51, and a pH is 7.35. The patient's getting saline at 20 mL an hour, fentanyl at 1.5 mcg/kg/h, vital AF, at 23 mL an hour which is goal, and propofol, at 40 mcg/kg/m. White count 8.6, hemoglobin 9.6, hematocrit 30, and platelet count 189,000. Sodium 141, calcium 3.9, chlorides 110, CO2 26, anion gap 5, BUN 63, and creatinine 1.30. Chest x-ray continues to show stable bilateral infiltrates. Chest x-ray is essentially unchanged. Progress note dated 08/27/2021. 76-year-old female, again seen in room 252. The patient was admitted back on 08/04/2021 with a diagnosis of coronavirus associated pneumonia, and hypoxemic respiratory failure. The patient remains in the intensive care unit, and was intubated on 08/05/2021, and had a tracheostomy tube placed on August 18, and a PEG tube placed on 08/22/2021. The patient is on the volume assist control mode, rate 32, tidal volume 400, FiO2 60%, PEEP of 20. The blood gases show pO2 of 73, pCO2 of 50, and pH is 7.35. The patient remains on saline at 20 mL an hour, propofol at 35 mcg/kg/m, fentanyl 1 mcg/kg/h, and vital AF at 28 mL an hour, which is goal. White count 8.5, hemoglobin 10.5, hematocrit 33.1, and platelet count 201,000. Sodium 141, potassium 4.1, chlorides 108, CO2 25, anion gap 8, BUN 65, and creatinine 1.29. There was no chest x-ray today as yet. Yesterday's chest x-ray showed diffuse bilateral infiltrates. Objective - Vital Signs Vital signs: Vital Signs Temp 98.7 F 08/27/21 08:00 Pulse 73 08/27/21 10:00 Resp 32 H 08/27/21 10:00 BP 80/46 08/27/21 10:00 Pulse Ox 93 L 08/27/21 10:00 Intake & Output 08/26/21 08/27/21 08/27/21 18:59 06:59 18:59 Intake Total 928.031 975.737 678.172 Output Total 1370 580 420 Balance -441.969 395.737 258.172 Weight 104 kg 106.8 kg Intake: IV 276 276 409 Pressure Bag 0.9% Sodium 36 36 329 Chloride @ 3mL/hr Sodium Chloride 0.9% 1, 240 240 80 000 ml @ 20 mls/hr IV . Q24H [facility] Rx#:[id number] Intake, IV Titration 309.031 363.737 27.172 Amount fentaNYL (PF). 1,000 mcg 109.031 171.181 27.172 In Sodium Chloride 0.9% 80 ml @ 0.5 MCG/KG/HR 4. 795 mls/hr IV .[id number] [facility] Rx#:[id number] propofoL 1,000 mg In 200.000 192.556 Empty Bag 1 bag @ Titrate IV .Q0M [facility]O Rx#: [id number] Tube Feeding 283 336 112 Other 60 130 Output: Urine 1370 580 320 Stool 100 Other: Voiding Method Indwelling Catheter Indwelling Catheter # Bowel Movements 1 ABP, PAP, CO, CI - Last Documented Arterial Blood Pressure 120/51 - Exam No acute distress, sedated and with a midline tracheostomy tube. Saturations are 93%. HEENT examination is grossly unremarkable. Neck supple. Full range of motion. No adenopathy thyromegaly or neck vein distention. Cardiovascular examination reveals regular rhythm rate. S1-S2 normal. No S3 or S4. No discernible murmur noted. Heart sounds are distant. Heart rate 73 bpm. Lungs reveal use bilateral rhonchi. No wheezes or crackles. Breath sounds equal. Abdomen soft bowel sounds are heard. No masses or tenderness. PEG tube noted. Extremities are intact. No cyanosis clubbing or edema. Skin is without rash or lesion. Neurologic examination cannot be adequately assessed as the patient's currently sedated. - Labs CBC & Chem 7: 08/27/21 03:48 08/27/21 03:48 Labs: Abnormal Lab Results - Last 24 Hours (Table) 08/26/21 08/26/21 08/26/21 Range/Units 11:41 19:00 20:19 RBC (3.80-5.40) m/uL Hgb (11.4-16.0) gm/dL Hct (34.0-46.0) % RDW (11.5-15.5) % Lymphocytes # (1.0-4.8) k/uL ABG pCO2 (35-45) mmHg ABG pO2 (83-108) mmHg ABG HCO3 (21-25) mmol/L ABG Total CO2 (19-24) mmol/L Chloride (98-107) mmol/L BUN (7-17) mg/dL Creatinine (0.52-1.04) mg/dL Glucose (74-99) mg/dL POC Glucose (mg/dL) 143 H 131 H 121 H (75-99) mg/dL Total Protein (6.3-8.2) g/dL Albumin (3.5-5.0) g/dL 08/26/21 08/27/21 08/27/21 Range/Units 23:31 03:48 03:48 RBC 3.43 L (3.80-5.40) m/uL Hgb 10.5 L (11.4-16.0) gm/dL Hct 33.1 L (34.0-46.0) % RDW 15.6 H (11.5-15.5) % Lymphocytes # 0.6 L (1.0-4.8) k/uL ABG pCO2 (35-45) mmHg ABG pO2 (83-108) mmHg ABG HCO3 (21-25) mmol/L ABG Total CO2 (19-24) mmol/L Chloride 108 H (98-107) mmol/L BUN 65 H (7-17) mg/dL Creatinine 1.29 H (0.52-1.04) mg/dL Glucose 115 H (74-99) mg/dL POC Glucose (mg/dL) 104 H (75-99) mg/dL Total Protein 6.1 L (6.3-8.2) g/dL Albumin 2.7 L (3.5-5.0) g/dL 08/27/21 08/27/21 Range/Units 05:20 05:38 RBC (3.80-5.40) m/uL Hgb (11.4-16.0) gm/dL Hct (34.0-46.0) % RDW (11.5-15.5) % Lymphocytes # (1.0-4.8) k/uL ABG pCO2 50 H (35-45) mmHg ABG pO2 73 L (83-108) mmHg ABG HCO3 27 H (21-25) mmol/L ABG Total CO2 29 H (19-24) mmol/L Chloride (98-107) mmol/L BUN (7-17) mg/dL Creatinine (0.52-1.04) mg/dL Glucose (74-99) mg/dL POC Glucose (mg/dL) 110 H (75-99) mg/dL Total Protein (6.3-8.2) g/dL Albumin (3.5-5.0) g/dL Assessment and Plan Assessment: Acute hypoxemic respiratory failure secondary to coronavirus associated pneumonia, status post intubation and mechanical ventilation on 08/05/2021, and tracheostomy, on August 18, and with PEG tube placement on August 22, 2021 Acute respiratory distress syndrome secondary to coronavirus associated pneumonia. Elevated inflammatory marker secondary to coronavirus infection. Moraxella catarrhalis pneumonia. Metabolic encephalopathy. History of essential hypertension. Negative for DVT of the bilateral lower extremities. History of hyperlipidemia. History of diabetes mellitus. History of hypothyroidism, not well controlled. Plan: Plan dated 08/05/2021. The patient's on vitamin C, vitamin D3, and zinc. In addition, the patient's getting Decadron 6 mg a day, and Lovenox 40 mg subcu daily. We also added GOLDEN to the patient's regimen. The patient may end up requiring intubation and mechanical ventilation. She is quite ill, and she is hypoxemic despite being on BiPAP at 100%. Additional recommendations and suggestions are forthcoming. Prognosis is guarded. We will continue to follow make recommendations where appropriate. Plan dated 08/07/2021. The patient remains on appropriate medications including vitamin C, vitamin D3, and zinc. In addition, the patient is getting level thyroxine 100 g daily down the NG tube. The patient remains on Lovenox 40 mg a day, and Decadron 6 mg a day. She also is getting GOLDEN, 4 mg a day. We will continue to follow make recommendations were appropriate. Prognosis is guarded. Her PEEP was increased to 20 cm water, in an attempt to reduce the FiO2. Additional recommendations and suggestions are forthcoming. Plan dated 08/22/2021. The patient's PEEP was increased from 16 to 20. We will attempt to wean the FiO2. We'll DC the cefepime. She remains on propofol and fentanyl. She will resume tube feedings, once the PEG tube has been inserted. Additional recommendations and suggestions are forthcoming. Prognosis is guarded. We will continue to follow make recommendations where appropriate. The patient should have a PEG tube inserted today. Medications are reviewed. X-ray and labs are reviewed. Plan dated 08/23/2021. The patient did have her PEG tube placed yesterday. She's currently remains on fentanyl and propofol. She is not on Nimbex. The patient's blood gases have been reviewed. The patient continues on tube feeds. He will be increase to goal sometime later today. Because she had not, she gets Lasix 40-60 mg IV pus h. Additional recommendations and suggestions are forthcoming. We will continue to follow make recommendations where appropriate. Prognosis is guarded. Plan dated 08/24/2021. The patient now has a tracheostomy tube, and a PEG tube. The patient remains on fentanyl and propofol. The patient is not currently on any antibiotics. The patient was weaned off the Nimbex. The patient received tube feeds. We will attempt to wean the FiO2. The patient's on Decadron, and Lovenox. The patient remains on vitamin C, vitamin D3, and zinc. Additional recommendations and suggestions are forthcoming. Prognosis is guarded. We will continue to follow make recommendations where appropriate. Plan dated 08/25/2021. Currently, the patient is about the same today as she was yesterday. She will have a daily interruption of sedation today. She is likely not ready to wean from mechanical ventilation, given her borderline blood gases, FiO2 60%, and her PEEP of 20. We will continue to follow make recommendations were appropriate. The patient continues on Decadron and Lovenox. She also remains on vitamin C, vitamin D3, and zinc. She has completed treatment for her Moraxella catarrhalis pulmonary infection. Prognosis is guarded. Plan dated 08/26/2021. The patient remains about the same. We will do a daily interruption of sedation although, given the fact that she is on 60% FiO2, and a PEEP of 20, it is unlikely she will require or be able to tolerate a spontaneous breathing trial. The patient remains on fentanyl, propofol. She is receiving tube remains. We will continue to follow make recommendations where appropriate. Medications, chest x-ray, and labs are all reviewed. The patient remains on Lovenox, Decadron, and vitamins. Additional recommendations and suggestions are forthcoming. The patient's currently not on any antibiotics. Prognosis is guarded. Plan dated 08/27/2021. The patient remains about the same. We will attempt a daily interruption of sedation, as we do every day. The patient remains on Lovenox, Decadron, and vitamin C, vitamin D3, and zinc. Medications, ALLERGIES, x-rays, and labs are all reviewed. The patient will have a chest x-ray, CBC, basic metabolic profile, and blood gas tomorrow. Additional recommendations and suggestions are forthcoming. Prognosis is guarded. We will continue to follow make recommendations where appropriate. Time with Patient: Greater than 30
[2021-08-27 11:39] LABS: Glucose,Whole Blood 147 mg/dL (75-99)
--- NOTE | 2021-08-27 13:06 | P.PN ---
Subjective Progress Note Date: 08/27/21 Principal diagnosis: Covid 19 pneumonia, acute respiratory distress, mechanically ventilated Patient is a type II diabetic, intubated 20 of PEEP, inflammatory markers have improved or are stable, patient is hemodynamically stable, attempts at weaning vent unsuccessful, patient has tracheostomy, has PEG tube in place and currently getting tube feeds Objective - Vital Signs Vital signs: Vital Signs Temp 98.7 F 08/27/21 08:00 Pulse 71 08/27/21 11:00 Resp 32 H 08/27/21 11:00 BP 89/55 08/27/21 11:00 Pulse Ox 93 L 08/27/21 10:00 Intake & Output 08/26/21 08/27/21 08/27/21 18:59 06:59 18:59 Intake Total 928.031 975.737 593.172 Output Total 1370 580 800 Balance -441.969 395.737 -206.828 Weight 104 kg 106.8 kg Intake: IV 276 276 138 Pressure Bag 0.9% Sodium 36 36 18 Chloride @ 3mL/hr Sodium Chloride 0.9% 1, 240 240 120 000 ml @ 20 mls/hr IV . Q24H [facility] Rx#:[id number] Intake, IV Titration 309.031 363.737 127.172 Amount fentaNYL (PF). 1,000 mcg 109.031 171.181 27.172 In Sodium Chloride 0.9% 80 ml @ 0.5 MCG/KG/HR 4. 795 mls/hr IV .[id number] [facility] Rx#:[id number] propofoL 1,000 mg In 200.000 192.556 100 Empty Bag 1 bag @ Titrate IV .Q0M [facility] Rx#: [id number] Tube Feeding 283 336 168 Other 60 160 Output: Urine 1370 580 700 Stool 100 Other: Voiding Method Indwelling Catheter Indwelling Catheter Indwelling Catheter # Bowel Movements 1 ABP, PAP, CO, CI - Last Documented Arterial Blood Pressure 136/54 - Exam General: Patient is mechanically ventilated, sedated, no longer paralyzed HEENT: [PERRL. EOMI. intubated Neck: [No adenopathy.] Cardiac: [Heart regular in rate and rhythm. No S3. No S4. No clicks, rubs. No murmur.] Lungs: Rhonchorous breath sounds diminished bilaterally Abdomen: [No mass. No organomegaly. Bowel sounds presnt and normoactive in all 4 quadrants.] Extremes: [No edema no cyanosis no claudication normal pulses] : Normal female genitalia Musculoskeletal: [No joint erythema, edema or tenderness.] Skin: [No rash.] Neurologic: Patient is no longer paralyzed, intubated and mechanically ventilated, sedated Lymphatic: [No adenopathy.] - Labs CBC & Chem 7: 08/27/21 03:48 08/27/21 03:48 Labs: Abnormal Lab Results - Last 24 Hours (Table) 08/26/21 08/26/21 08/26/21 Range/Units 19:00 20:19 23:31 RBC (3.80-5.40) m/uL Hgb (11.4-16.0) gm/dL Hct (34.0-46.0) % RDW (11.5-15.5) % Lymphocytes # (1.0-4.8) k/uL ABG pCO2 (35-45) mmHg ABG pO2 (83-108) mmHg ABG HCO3 (21-25) mmol/L ABG Total CO2 (19-24) mmol/L Chloride (98-107) mmol/L BUN (7-17) mg/dL Creatinine (0.52-1.04) mg/dL Glucose (74-99) mg/dL POC Glucose (mg/dL) 131 H 121 H 104 H (75-99) mg/dL Total Protein (6.3-8.2) g/dL Albumin (3.5-5.0) g/dL 08/27/21 08/27/21 08/27/21 Range/Units 03:48 03:48 05:20 RBC 3.43 L (3.80-5.40) m/uL Hgb 10.5 L (11.4-16.0) gm/dL Hct 33.1 L (34.0-46.0) % RDW 15.6 H (11.5-15.5) % Lymphocytes # 0.6 L (1.0-4.8) k/uL ABG pCO2 (35-45) mmHg ABG pO2 (83-108) mmHg ABG HCO3 (21-25) mmol/L ABG Total CO2 (19-24) mmol/L Chloride 108 H (98-107) mmol/L BUN 65 H (7-17) mg/dL Creatinine 1.29 H (0.52-1.04) mg/dL Glucose 115 H (74-99) mg/dL POC Glucose (mg/dL) 110 H (75-99) mg/dL Total Protein 6.1 L (6.3-8.2) g/dL Albumin 2.7 L (3.5-5.0) g/dL 08/27/21 08/27/21 Range/Units 05:38 11:37 RBC (3.80-5.40) m/uL Hgb (11.4-16.0) gm/dL Hct (34.0-46.0) % RDW (11.5-15.5) % Lymphocytes # (1.0-4.8) k/uL ABG pCO2 50 H (35-45) mmHg ABG pO2 73 L (83-108) mmHg ABG HCO3 27 H (21-25) mmol/L ABG Total CO2 29 H (19-24) mmol/L Chloride (98-107) mmol/L BUN (7-17) mg/dL Creatinine (0.52-1.04) mg/dL Glucose (74-99) mg/dL POC Glucose (mg/dL) 147 H (75-99) mg/dL Total Protein (6.3-8.2) g/dL Albumin (3.5-5.0) g/dL Assessment and Plan (1) Acute respiratory failure with hypoxia Current Visit: Yes Status: Acute Code(s): J96.01 - ACUTE RESPIRATORY FAILURE WITH HYPOXIA SNOMED Code(s): 67116121 (2) Hyperglycemia Current Visit: Yes Status: Acute Code(s): R73.9 - HYPERGLYCEMIA, UNSPECIFIED SNOMED Code(s): 14939697 (3) Hypothyroidism, unspecified Current Visit: Yes Status: Acute Code(s): E03.9 - HYPOTHYROIDISM, UNSPECIFIED SNOMED Code(s): 07954872 (4) Hypoxia Current Visit: Yes Status: Acute Code(s): R09.02 - HYPOXEMIA SNOMED Code(s): 814054547 (5) Mixed hyperlipidemia Current Visit: Yes Status: Acute Code(s): E78.2 - MIXED HYPERLIPIDEMIA SNOMED Code(s): 157444589 (6) Pneumonia due to COVID-19 virus Current Visit: Yes Status: Acute Code(s): U07.1 - COVID-19; J12.82 - PNEUMONIA DUE TO CORONAVIRUS DISEASE 2019 SNOMED Code(s): 772092365907889221 (7) Type 2 diabetes mellitus without complications Current Visit: Yes Status: Acute Code(s): E11.9 - TYPE 2 DIABETES MELLITUS WITHOUT COMPLICATIONS SNOMED Code(s): 637466497
[2021-08-27 17:34] LABS: Glucose,Whole Blood 157 mg/dL (75-99)
[2021-08-27] MEDS: SODIUM CHLORIDE 0.9% 1,000 ML IV SCH (19:49)
[2021-08-27 20:23] LABS: Glucose,Whole Blood 124 mg/dL (75-99)
[2021-08-27 23:56] LABS: Glucose,Whole Blood 120 mg/dL (75-99)
[2021-08-28] MEDS: INSULIN ASPART (NovoLOG) 100 UNIT/ML VIAL SQ SCH ×5 (01:40→23:53)
[2021-08-28] MEDS: fentaNYL (PF). 1,000 MCG in SODIUM CHLORIDE 0.9% 80 ML IV SCH ×2 (03:15→13:15)
[2021-08-28] MEDS: ALBUTEROL HFA INHALER INHALATION SCH ×5 (03:21→20:23)
[2021-08-28 05:41] LABS: ABG Base Excess 2.1 mmol/L; ABG HCO3 28 mmol/L (21-25); ABG Oxygen Saturation 93.5 % (94-97); ABG PCO2 51 mmHg (35-45); ABG PH 7.35 (7.35-7.45); ABG PO2 67 mmHg (83-108); ABG TCO2 29 mmol/L (19-24); Allen Test Performed? Yes
[2021-08-28 05:48] LABS: Basophils % (A) 0 %; Eosinophils # (A) 0.5 k/uL (0-0.7); Eosinophils % (A) 8 %; HCT 31.6 % (34.0-46.0); HGB 10.2 gm/dL (11.4-16.0); Hypochromasia Moderate; Lymphocytes # (A) 0.5 k/uL (1.0-4.8); Lymphocytes % (A) 8 %; MCHC 32.3 g/dL (31.0-37.0); MCV 96.1 fL (80.0-100.0); Mean Platelet Volume 8.7; Monocytes # (A) 0.4 k/uL (0-1.0); Monocytes % (A) 6 %; Neutrophils # (A) 4.5 k/uL (1.3-7.7); Neutrophils % (A) 75 %; Platelet Count 157 k/uL (150-450); Poikilocytosis Slight; RBC 3.29 m/uL (3.80-5.40); RDW 15.7 % (11.5-15.5)
[2021-08-28 06:02] LABS: Calcium 9.1 mg/dL (8.4-10.2); Potassium 3.9 mmol/L (3.5-5.1)
[2021-08-28] MEDS: LEVOTHYROXINE 100 MCG TAB OG-TUBE SCH (06:19)
--- NOTE | 2021-08-28 06:53 | XR ---
EXAMINATION TYPE: XR chest 1V portable DATE OF EXAM: 08/28/2021 COMPARISON: 08/26/2021 HISTORY: Covid pneumonia TECHNIQUE: Single frontal view of the chest is obtained. FINDINGS: There is a tracheostomy tube 4.7 cm above the kay. There is a left-sided PICC line unch anged in position. There are mild to moderate scattered partially consolidative opacities in the mid lower lung zones un changed compared to previous. There is no pneumothorax or large pleural effusion. Heart size is normal. IMPRESSION: No change in the acute cardiopulmonary process.
--- NOTE | 2021-08-28 07:23 | P.PN ---
Subjective Progress Note Date: 08/28/21 Principal diagnosis: Covid 19 pneumonia, acute respiratory distress, mechanically ventilated, poor prognosis Patient originally admitted on 08/04/2021, diagnosis reese virus associated pneumonia Patient is a type II diabetic, intubated 20 of PEEP, inflammatory markers have improved or are stable, patient is hemodynamically stable, attempts at weaning vent unsuccessful, patient had tracheostomy placed 08/18/2021, has PEG tube placement performed on 08/22/2021 and currently getting tube feeds, patient is sedated propofol, fentanyl Objective - Vital Signs Vital signs: Vital Signs Temp 99.2 F 08/28/21 04:00 Pulse 77 08/28/21 07:00 Resp 32 H 08/28/21 07:00 BP 113/52 08/28/21 07:00 Pulse Ox 94 L 08/28/21 07:00 Intake & Output 08/27/21 08/28/21 08/28/21 18:59 06:59 18:59 Intake Total 1112.925 903.904 51 Output Total 1365 700 50 Balance -252.075 203.904 1 Weight 105.7 kg Intake: IV 276 276 23 Pressure Bag 0.9% Sodium 36 36 3 Chloride @ 3mL/hr Sodium Chloride 0.9% 1, 240 240 20 000 ml @ 20 mls/hr IV . Q24H [facility] Rx#:[id number] Intake, IV Titration 310.925 291.904 Amount fentaNYL (PF). 1,000 mcg 110.925 91.904 In Sodium Chloride 0.9% 80 ml @ 0.5 MCG/KG/HR 4. 795 mls/hr IV .[id number] [facility] Rx#:[id number] propofoL 1,000 mg In 200 200 Empty Bag 1 bag @ Titrate IV .Q0M [facility] Rx#: [id number] Tube Feeding 336 336 28 Other 190 Output: Urine 1265 700 50 Stool 100 Other: Voiding Method Indwelling Catheter Indwelling Catheter # Bowel Movements 1 ABP, PAP, CO, CI - Last Documented Arterial Blood Pressure 118/52 - Exam General: Patient is mechanically ventilated, sedated, no longer paralyzed HEENT: [PERRL. EOMI. intubated Neck: [No adenopathy.] Cardiac: [Heart regular in rate and rhythm. No S3. No S4. No clicks, rubs. No murmur.] Lungs: Rhonchorous breath sounds diminished bilaterally Abdomen: [No mass. No organomegaly. Bowel sounds presnt and normoactive in all 4 quadrants.] Extremes: [No edema no cyanosis no claudication normal pulses] : Normal female genitalia Musculoskeletal: [No joint erythema, edema or tenderness.] Skin: [No rash.] Neurologic: Patient is no longer paralyzed, intubated and mechanically ventilated, sedated Lymphatic: [No adenopathy.] - Labs CBC & Chem 7: 08/28/21 05:25 08/28/21 05:25 Labs: Abnormal Lab Results - Last 24 Hours (Table) 08/27/21 08/27/21 08/27/21 Range/Units 11:37 17:22 20:22 RBC (3.80-5.40) m/uL Hgb (11.4-16.0) gm/dL Hct (34.0-46.0) % RDW (11.5-15.5) % Lymphocytes # (1.0-4.8) k/uL ABG pCO2 (35-45) mmHg ABG pO2 (83-108) mmHg ABG HCO3 (21-25) mmol/L ABG Total CO2 (19-24) mmol/L ABG O2 Saturation (94-97) % Chloride (98-107) mmol/L BUN (7-17) mg/dL Creatinine (0.52-1.04) mg/dL Glucose (74-99) mg/dL POC Glucose (mg/dL) 147 H 157 H 124 H (75-99) mg/dL 08/27/21 08/28/21 08/28/21 Range/Units 23:54 05:25 05:25 RBC 3.29 L (3.80-5.40) m/uL Hgb 10.2 L (11.4-16.0) gm/dL Hct 31.6 L (34.0-46.0) % RDW 15.7 H (11.5-15.5) % Lymphocytes # 0.5 L (1.0-4.8) k/uL ABG pCO2 (35-45) mmHg ABG pO2 (83-108) mmHg ABG HCO3 (21-25) mmol/L ABG Total CO2 (19-24) mmol/L ABG O2 Saturation (94-97) % Chloride 109 H (98-107) mmol/L BUN 67 H (7-17) mg/dL Creatinine 1.21 H (0.52-1.04) mg/dL Glucose 164 H (74-99) mg/dL POC Glucose (mg/dL) 120 H (75-99) mg/dL 08/28/21 Range/Units 06:00 RBC (3.80-5.40) m/uL Hgb (11.4-16.0) gm/dL Hct (34.0-46.0) % RDW (11.5-15.5) % Lymphocytes # (1.0-4.8) k/uL ABG pCO2 51 H (35-45) mmHg ABG pO2 67 L (83-108) mmHg ABG HCO3 28 H (21-25) mmol/L ABG Total CO2 29 H (19-24) mmol/L ABG O2 Saturation 93.5 L (94-97) % Chloride (98-107) mmol/L BUN (7-17) mg/dL Creatinine (0.52-1.04) mg/dL Glucose (74-99) mg/dL POC Glucose (mg/dL) (75-99) mg/dL Assessment and Plan (1) Acute respiratory failure with hypoxia Current Visit: Yes Status: Acute Code(s): J96.01 - ACUTE RESPIRATORY FAILURE WITH HYPOXIA SNOMED Code(s): 10298342 (2) Hyperglycemia Current Visit: Yes Status: Acute Code(s): R73.9 - HYPERGLYCEMIA, UNSPECIFIED SNOMED Code(s): 30098905 (3) Hypothyroidism, unspecified Current Visit: Yes Status: Acute Code(s): E03.9 - HYPOTHYROIDISM, UNSPECIFIED SNOMED Code(s): 88760528 (4) Hypoxia Current Visit: Yes Status: Acute Code(s): R09.02 - HYPOXEMIA SNOMED Code(s): 245208467 (5) Mixed hyperlipidemia Current Visit: Yes Status: Acute Code(s): E78.2 - MIXED HYPERLIPIDEMIA SNOMED Code(s): 345851931 (6) Pneumonia due to COVID-19 virus Current Visit: Yes Status: Acute Code(s): U07.1 - COVID-19; J12.82 - PNEUMONIA DUE TO CORONAVIRUS DISEASE 2019 SNOMED Code(s): 352210530842947411 (7) Type 2 diabetes mellitus without complications Current Visit: Yes Status: Acute Code(s): E11.9 - TYPE 2 DIABETES MELLITUS WITHOUT COMPLICATIONS SNOMED Code(s): 780037695 Plan: This patient is mechanically ventilated and intubated Trach and PEG tube placement tube feeds Long-term prognosis poor Time with Patient: Greater than 30
[2021-08-28] MEDS: ASCORBIC ACID 500 MG TAB PO SCH (08:52)
[2021-08-28] MEDS: ZINC SULFATE 220 MG CAP PO SCH (08:52)
[2021-08-28] MEDS: CHOLECALCIFEROL 125 MCG (5000 IU) TABLET PO SCH (08:52)
[2021-08-28] MEDS: ENOXAPARIN 40 MG/0.4 ML SYRINGE SQ SCH (08:53)
[2021-08-28] MEDS: INSULIN DETEMIR (LEVEMIR) 100 UNIT/ML SYR SQ SCH ×2 (08:53→19:43)
[2021-08-28] MEDS: CHLORHEXIDINE GLUCONATE 15 ML CUP MUCOUS MEM SCH ×2 (08:53→19:43)
[2021-08-28] MEDS: DEXAMETHASONE SOD PHOSPHATE 10 MG/ML 1 ML VIAL IVP SCH (08:53)
[2021-08-28] MEDS: FUROSEMIDE 10 MG/ML 4 ML VIAL IV SCH (08:54)
[2021-08-28] MEDS: PANTOPRAZOLE 40 MG/10 ML VIAL IVP SCH (08:54)
--- NOTE | 2021-08-28 11:03 | P.PN ---
Subjective Progress Note Date: 08/28/21 Principal diagnosis: Respiratory failure. This is a 76-year-old female seen in the emergency room, on August 04. She came in with complaints of shortness of breath and difficulty breathing. In addition, she had cough, chest congestion, generalized weakness, lightheadedness, his been sick for about a month or so. She apparently tested positive for coronavirus on July 30. Currently, she is on BiPAP, with settings of 15/5 and 100%. She's getting saline at 80 mL an hour. She has a history of hyperlipidemia, diabetes, hypertension, and hypothyroidism. White count 17, hemoglobin 13.7, hematocrit 40.6, and platelet count 133,000. D-dimer was 0.97. Sodium 133, potassium 4, chlorides 100, CO2 24, anion gap 9, BUN 18, creatinine 0.6. LDH was 1477 and C-reactive protein was 15.9. Chest x-ray showed elevation of the right diaphragm, and diffuse bilateral airspace disease consistent with coronavirus pneumonia. On today's evaluation on 08/06/2021 patient is seen in the intensive care unit. Patient was admitted on 08/04/2021 with symptoms of COVID-19 ammonia that have been present for about a month's, patient had a positive home test on 07/30/2021. Patient's hypoxia and dyspnea has significantly progressed, and intubated on 08/05/2021. While she is sedated and intubated on assist control mode of ventilation with a rate of 26, tidal volume is 400, FiO2 of 90% and PEEP of 15, this morning's blood gas shows pO2 of 78, pCO2 of 40, and pH of 7.41. This was done on FiO2 of 100% and FiO2 had since been dropped down to 90%. Patient is maintaining O2 saturations between 96-98%. Peak airway pressure is 34, plateau pressure is 31. Currently on 0.9 at 80 ML per hour, Diprivan is at 30 mics per kilo per minute, Nimbex is at 2 mics per kilo per minute. Today's chest x-ray shows bilateral multifocal and confluent opacities consistent with COVID-19 pneumonia. Today's labs have been reviewed, white blood cell count is improving and is down to 15.4, hemoglobin is 12.3, serum sodium is improved and is up to 135 compared to 129 on admission, potassium is 4.1, BUN is 21 creatinine is 0.78 yesterday's LFTs have been reviewed and AST was 122, ALT is 74, applying phosphatases 83, LDH was 1477, and CRP was 15.9 proBNP was within normal limits at 181 bronchial Eleanor level was 0.48, borderline, sputum cultures have been sent and showed few PMNs, many gram-negative diplococci. Final culture is pending. Blood culturef show no growth thus far. No dy namically patient is slightly bradycardic in the sinus mechanism with a rate of 51, blood pressure is 102/57, she was slightly hypotensive she was given a liter bolus this morning, she is getting another liter bolus infusing right now for low urine output. Patient is currently receiving Decadron 6 mg daily, she is on Baricitinib, Lovenox 40 mg daily, and COVID-19 vitamins. [facility] was 0.97. Progress note dated 08/07/2021. 76-year-old female, again seen in the intensive care unit, room 252. She remains on the mechanical ventilator. The patient was intubated on August 05 for respiratory failure. She is on the volume assist control mode, rate 26, tidal volume 400, FiO2 80%, and PEEP of 15. Blood gases show a PaO2 of 68, pCO2 45, and a pH of 7.34. She is on propofol at 40 mcg/kg/m, Nimbex at 1.5 mcg/kg/m, saline at 80 mL an hour, and vital AF at 29 mL an hour, which is goal. White count 15.5, hemoglobin 12, hematocrit 35.6, platelet count 119,000. D- dimer is 0.75. Fibrinogen level DCXII. Sodium 138, potassium 3.8, chlorides 110, CO2 23, anion gap 5, BUN 19, creatinine 0.72. LDH is 847. C-reactive protein is 18.7, and her TSH is 8.370. Chest x-ray shows diffuse bilateral infiltrates. Reevaluated today on 08/18/2021, patient remains in the ICU, intubated and mechanically ventilated. Patient is on assist control rate of 3 to tidal volume 325 FiO2 70% PEEP of 16. ABG is marginal with a pO2 of 60 pCO2 of 70 pH of 7.32, hence no changes were made on her ventilator settings. Patient remains on a fall at 50 mcg/kg/m fentanyl 1 mcg/kg/h she is on D5 4500 mL per hour. CBC is relatively unremarkable hemoglobin is 10.1 electrolytes and renal profile are normal. Patient was seen by general surgery yesterday, and could not pass a scope to be able to perform at PEG tube placement. Hence the patient is scheduled today for tracheostomy, maybe PEG tube placement could be done today in the operating room. At any rate patient is not ready for any weaning, and apparently the family had no problem proceeding with tracheostomy and PEG tube placement. Her overall clinical status remains marginal at best. Reevaluated today on 08/19/2021, patient remains in the ICU, intubated and mechanically ventilated. Patient is on assist control rate of 32, tidal volume 325 and today I have increased the volume to 400 mostly because of ongoing cough leak from the new tracheostomy she is on 90% FiO2, and PEEP of 16. Chest x-ray continues to show bilateral infiltrates, not much of a change. Patient underwent uneventful tracheostomy yesterday. Her ABG this morning showed a pO2 of 74 pCO2 of 63 pH of 7.35, and not much of a change on the ventilator settings except increasing the tidal volume up to 400. I did cut down her FiO2 to 70%, and instructed nursing to keep her O2 saturation between 89 and 91%. She is on propofol at 25 mcg/kg/m fentanyl 1 mcg/kg/h she is also on Nimbex, and on IV fluid 0.9 normal saline at 20 mL per hour. Patient is scheduled to have a PICC line today. And will DC the central line. After a PICC line placement. Patient remains on enteral feeding via orogastric tube, receiving vital AF and 31 mL per hour. Electrolytes and renal profile are normal today. Remains on the COVID-19 cocktail including ascorbic acid, she is also on Decadron 6 mg IV push daily, Lovenox 40 mg subcu daily, Protonix 40 mg daily IV push, zinc, patient is also on cefepime for underlying Moraxella catarrhalis pneumonia. Reevaluated today on 08/20/2021, patient remains in the ICU, intubated and mechanically ventilated. She is on assist control rate of 3 to tidal volume 400 FiO2 75% PEEP of 16. ABG showed a pO2 of 54 DC O2 of 45 pH of 7.46, hence The patient on FiO2 of 75%, and no other vent changes were made. Patient continues to have tracheostomy, she underwent tracheostomy on 08/17/21, minimal air leak noted from the tracheostomy, however seems to be improving, and she is achieving near her septal volumes. Patient is on fentanyl at 20 mcg/kg/h propofol 25 mcg/kg/m and she is on vital AF. Rate 34. Patient is not on any paralytics. Hence I would assess mental status hopefully today of or possibly a lower dose of sedation. CBC is relatively normal hemoglobin is 9.5. Electrolytes are normal, BUN is 64 creatinine 0.97. Patient is receiving enteral feeding. Remains on the COVID-19 cocktail including Decadron 6 mg IV push daily Lovenox 40 mg subcu daily Protonix 40 mg IV push daily and she is also on vitamin C. Remains on cefepime for underlying Moraxella catarrhalis pneumonia. Reevaluated today on 08/21/2021, patient remains in the ICU intubated and mechanically ventilated. She is on assist control rate of 30 tidal volume 400 FiO2 is at 80% and PEEP is at 16 after reviewing her ABG which showed a pO2 of 65 pCO2 45 pH of 7.44 I recommended decreasing FiO2 to 70%. Patient did not tolerate higher PEEP/18. Hence kept on a PEEP of 16. Patient remains on propofol at 20 fentanyl at 0.5, and she is not on Nimbex. Patient is arousable she opens her eyes only. But does not follow any other instructions. Her electrolytes are normal BUN is 62 creatinine 1.01 blood pressure seems to be high S1 as the patient has lower sedation and this was the dose of propofol goes down, hence I recommended adding clevidipine's to maintain adequate blood pressure hopefully 150 systolic. Chest x-ray continues to be about the same showing bilateral infiltrates. Medications list reviewed patient is on albuter ol HFA, vitamin C, cefepime 1 g every 12 hours, she is on Peridex, vitamin D, Celebrex was added today, Decadron 6 mg IV push daily NovoLog insulin and Levemir insulin. Levothyroxine 100 g daily Protonix 40 mg IV push daily and she is on zinc. Progress note dated 08/22/2021. This is a 76-year-old female who was admitted back on August 04. She was admitted with a diagnosis of coronavirus associated pneumonia. She came to the intensive care unit on August 05. She was intubated on August 05. The patient had a tracheostomy tube inserted on August 18, and will hopefully have a PEG tube placed on August 22. Patient remains on the mechanical ventilator. She is on the volume assist control mode, rate 32, tidal volume 400, FiO2 80%, and PEEP of 16. The patient's blood gases show pO2 70, pCO2 48, and a pH is 7.39. The patient's on propofol at 25 mcg/kg/m, saline at 20 mL an hour, fentanyl at 0.5 mcg/kg/h, tube feedings which are on hold, and vital AF at 34 mL an hour. That is goal. Current white count of 7.1, hemoglobin 9.7, hematocrit 30, and platelet count 175,000. Sodium 141, potassium 4.3, chlorides 111, CO2 28, anion gap 2, BUN 64, and creatinine 0.96. Sputum sampling on August 13 and on August 05, show evidence of Moraxella catarrhalis. Chest x-ray on August 22, show diffuse bilateral infiltrates, which are essentially unchanged. Progress note dated 08/23/2021. 76-year-old female, who was admitted back on August 04. She was admitted with a diagnosis of coronavirus associated pneumonia. She came to the intensive care unit on August 05. She was intubated on the same day. She had a tracheostomy tube inserted on August 18, and had a PEG tube placed on August 22. She remains on mechanical ventilator. She is on the volume assist control mode, rate 32, tidal volume 400, FiO2 85%, PEEP of 20. Blood gases show pO2 of 64, pCO2 of 50, pH is 7.36. The patient is on fentanyl 1 mcg/kg/h, propofol at 40 mcg/kg/m. She's getting saline at 20 mL an hour. She's also getting vital AF at 10 mL an hour, with a goal of 31 mL an hour. The patient will get some IV Lasix today. Current labs include a white count of 5.4, hemoglobin 8.8, plat elet count 160,000, and hematocrit of 27. Sodium 143, potassium 4, chlorides 113, CO2 26, anion gap 4, BUN 59, and creatinine 0.19. Chest x-ray shows diffuse bilateral infiltrates, consistent with coronavirus associated pneumonia. Progress note dated 08/24/2021. 76-year-old female, again seen in room 252. She was admitted way back on August 04. She was admitted with a diagnosis of coronavirus associated pneumonia. She came to the intensive care unit on August 05 area she was intubated on August 05. The patient had tracheostomy tube inserted on August 18, and a PEG tube placed on August 22. She remains on the mechanical ventilator. She is on the volume assist control mode, rate 32, tidal volume 400, FiO2 75%, and PEEP of 20. Blood gases show pO2 74, pCO2 of 51, and a pH is 7.30. The patient's on fentanyl at 1 mcg/kg/h, and propofol at 40 mcg/kg/m. The patient's getting saline at 20 mL an hour. She's getting vital AF at 23 mL an hour, which is goal. Today, we will attempt to wean the FiO2. White count 8.2, hemoglobin 9.9, hematocrit 30.9, and platelet count normal. Sodium 141, potassium 4, chlorides 111, CO2 25, anion gap 5, BUN 59, and creatinine 1.10. Chest x-ray shows diffuse bilateral infiltrates, which are largely unchanged. Progress note dated 08/25/2021. 76-year-old female seen again in room 252. The patient was admitted back on 08/04/2021. She was admitted with a diagnosis of coronavirus associated pneumonia and hypoxemic respiratory failure. She came to the intensive care unit on August 05, and was intubated on 08/05/2021. The patient had tracheostomy tube inserted on August 18, and a PEG tube was done on 08/22/2021. She remains on mechanical ventilator. She is on the volume assist control mode, rate 32, tidal volume 400, FiO2 60%, PEEP of 20. Blood gases show pO2 of 55, pCO2 of 51, and a pH is 7.34. Saturations are 88-90%. She is on saline at 20 mL an hour, fentanyl 1 mcg/kg/h, propofol at 40 mcg/kg/m, and vital AF at 23 mL an hour, which is goal. She will have a daily interruption of sedation today. Her nurse today is Shirin. White count of 7.5, and Lovenox 0.9, hematocrit 31.0, with a normal platelet count. Sodium 142, potassium 3.9, chlorides 111, CO2 26, anion gap 5, BUN 62, creatinine 1.23. Albumin is 2.6. Chest x-ray continues to show diffuse bilateral infiltrates consistent with coronavirus associated pneumonia. Progress note dated 08/26/2021. 76-year-old female, again seen in room 252. The patient was admitted back on 08/04/2021, with a diagnosis of coronavirus associated pneumonia, and hypoxemic respiratory failure. The patient remains in the intensive care unit. The patient was intubated on 08/05/2021, and had a tracheostomy tube inserted on August 18, and a PEG tube placed on 08/22/2021. Currently, she is on the volume assist control mode, rate 32, tidal volume 400, FiO2 60%, with a PEEP of 20. Blood gases show pO2 of 60, pCO2 51, and a pH is 7.35. The patient's getting saline at 20 mL an hour, fentanyl at 1.5 mcg/kg/h, vital AF, at 23 mL an hour which is goal, and propofol, at 40 mcg/kg/m. White count 8.6, hemoglobin 9.6, hematocrit 30, and platelet count 189,000. Sodium 141, calcium 3.9, chlorides 110, CO2 26, anion gap 5, BUN 63, and creatinine 1.30. Chest x-ray continues to show stable bilateral infiltrates. Chest x-ray is essentially unchanged. Progress note dated 08/27/2021. 76-year-old female, again seen in room 252. The patient was admitted back on 08/04/2021 with a diagnosis of coronavirus associated pneumonia, and hypoxemic respiratory failure. The patient remains in the intensive care unit, and was intubated on 08/05/2021, and had a tracheostomy tube placed on August 18, and a PEG tube placed on 08/22/2021. The patient is on the volume assist control mode, rate 32, tidal volume 400, FiO2 60%, PEEP of 20. The blood gases show pO2 of 73, pCO2 of 50, and pH is 7.35. The patient remains on saline at 20 mL an hour, propofol at 35 mcg/kg/m, fentanyl 1 mcg/kg/h, and vital AF at 28 mL an hour, which is goal. White count 8.5, hemoglobin 10.5, hematocrit 33.1, and platelet count 201,000. Sodium 141, potassium 4.1, chlorides 108, CO2 25, anion gap 8, BUN 65, and creatinine 1.29. There was no chest x-ray today as yet. Yesterday's chest x-ray showed diffuse bilateral infiltrates. Progress note dated 08/28/2021. 76-year-old female, again seen in room 252. The patient was admitted back on 08/04/2021, with a diagnosis of coronavirus associated pneumonia, and hypoxemic respiratory failure. The patient was intubated on 08/05/2001, and because of failure to wean, had a tracheostomy tube placed on August 18, and a PEG tube placed on 08/22/2021. The patient remains on mechanical ventilator. She is on the volume assist control mode, rate 32, tidal volume 400, FiO2 60%, PEEP of 20. Blood gases show pO2 of 67, pCO2 51, and a pH is 7.35. Patient remains on propofol at 35 mcg/kg/m, fentanyl at 1 mcg/kg/h, saline at 20 mL an hour, and vital AF, at 28 mL an hour. White count is 6, hemoglobin 10.2, hematocrit 31.6, platelet count 157,000. Sodium 139, potassium 3.9, chlorides 19, CO2 24, anion gap 6, BUN 67, with a creatinine of 1.21. The patient had Moraxella in the sputum, and was previously treated. Chest x-ray shows diffuse bilateral infiltrates, which are unchanged. Objective - Vital Signs Vital signs: Vital Signs Temp 99.2 F 08/28/21 08:00 Pulse 79 08/28/21 10:00 Resp 27 H 08/28/21 10:00 BP 106/57 08/28/21 10:00 Pulse Ox 90 L 08/28/21 10:00 Intake & Output 08/27/21 08/28/21 08/28/21 18:59 06:59 18:59 Intake Total 1112.925 903.904 434 Output Total 1365 700 325 Balance -252.075 203.904 109 Weight 105.7 kg Intake: IV 276 276 92 Pressure Bag 0.9% Sodium 36 36 12 Chloride @ 3mL/hr Sodium Chloride 0.9% 1, 240 240 80 000 ml @ 20 mls/hr IV . Q24H [facility] Rx#:[id number] Intake, IV Titration 310.925 291.904 100 Amount fentaNYL (PF). 1,000 mcg 110.925 91.904 In Sodium Chloride 0.9% 80 ml @ 0.5 MCG/KG/HR 4. 795 mls/hr IV .[id number] [facility] Rx#:[id number] propofoL 1,000 mg In 200 200 100 Empty Bag 1 bag @ Titrate IV .Q0M [facility] Rx#: [id number] Tube Feeding 336 336 112 Other 190 130 Output: Urine 1265 700 325 Stool 100 Other: Voiding Method Indwelling Catheter Indwelling Catheter Indwelling Catheter # Bowel Movements 1 ABP, PAP, CO, CI - Last Documented Arterial Blood Pressure 103/50 - Exam No acute distress, sedated and with a midline tracheostomy tube. Saturations are 93%. HEENT examination is grossly unremarkable. Neck supple. Full range of motion. No adenopathy thyromegaly or neck vein distention. Cardiovascular examination reveals regular rhythm rate. S1-S2 normal. No S3 or S4. No discernible murmur noted. Heart sounds are distant. Heart rate 79 bpm. Lungs reveal use bilateral rhonchi. No wheezes or crackles. Breath sounds equal. Abdomen soft bowel sounds are heard. No masses or tenderness. PEG tube noted. Extremities are intact. No cyanosis clubbing or edema. Skin is without rash or lesion. Neurologic examination cannot be adequately assessed as the patient's currently sedated. - Labs CBC & Chem 7: 08/28/21 05:25 08/28/21 05:25 Labs: Abnormal Lab Results - Last 24 Hours (Table) 08/27/21 08/27/21 08/27/21 Range/Units 11:37 17:22 20:22 RBC (3.80-5.40) m/uL Hgb (11.4-16.0) gm/dL Hct (34.0-46.0) % RDW (11.5-15.5) % Lymphocytes # (1.0-4.8) k/uL ABG pCO2 (35-45) mmHg ABG pO2 (83-108) mmHg ABG HCO3 (21-25) mmol/L ABG Total CO2 (19-24) mmol/L ABG O2 Saturation (94-97) % Chloride (98-107) mmol/L BUN (7-17) mg/dL Creatinine (0.52-1.04) mg/dL Glucose (74-99) mg/dL POC Glucose (mg/dL) 147 H 157 H 124 H (75-99) mg/dL 08/27/21 08/28/21 08/28/21 Range/Units 23:54 05:25 05:25 RBC 3.29 L (3.80-5.40) m/uL Hgb 10.2 L (11.4-16.0) gm/dL Hct 31.6 L (34.0-46.0) % RDW 15.7 H (11.5-15.5) % Lymphocytes # 0.5 L (1.0-4.8) k/uL ABG pCO2 (35-45) mmHg ABG pO2 (83-108) mmHg ABG HCO3 (21-25) mmol/L ABG Total CO2 (19-24) mmol/L ABG O2 Saturation (94-97) % Chloride 109 H (98-107) mmol/L BUN 67 H (7-17) mg/dL Creatinine 1.21 H (0.52-1.04) mg/dL Glucose 164 H (74-99) mg/dL POC Glucose (mg/dL) 120 H (75-99) mg/dL 08/28/21 Range/Units 06:00 RBC (3.80-5.40) m/uL Hgb (11.4-16.0) gm/dL Hct (34.0-46.0) % RDW (11.5-15.5) % Lymphocytes # (1.0-4.8) k/uL ABG pCO2 51 H (35-45) mmHg ABG pO2 67 L (83-108) mmHg ABG HCO3 28 H (21-25) mmol/L ABG Total CO2 29 H (19-24) mmol/L ABG O2 Saturation 93.5 L (94-97) % Chloride (98-107) mmol/L BUN (7-17) mg/dL Creatinine (0.52-1.04) mg/dL Glucose (74-99) mg/dL POC Glucose (mg/dL) (75-99) mg/dL Assessment and Plan Assessment: Acute hypoxemic respiratory failure secondary to coronavirus associated pneumonia, status post intubation and mechanical ventilation on 08/05/2021, and tracheostomy, on August 18, and with PEG tube placement on August 22, 2021 Acute respiratory distress syndrome secondary to coronavirus associated pneumonia. Elevated inflammatory marker secondary to coronavirus infection. Moraxella catarrhalis pneumonia. Metabolic encephalopathy. History of essential hypertension. Negative for DVT of the bilateral lower extremities. History of hyperlipidemia. History of diabetes mellitus. History of hypothyroidism, not well controlled. Plan: Plan dated 08/05/2021. The patient's on vitamin C, vitamin D3, and zinc. In addition, the patient's getting Decadron 6 mg a day, and Lovenox 40 mg subcu daily. We also added GOLDEN to the patient's regimen. The patient may end up requiring intubation and mechanical ventilation. She is quite ill, and she is hypoxemic despite being on BiPAP at 100%. Additional recommendations and suggestions are forthcoming. Prognosis is guarded. We will continue to follow make recommendations where appropriate. Plan dated 08/07/2021. The patient remains on appropriate medications including vitamin C, vitamin D3, and zinc. In addition, the patient is getting level thyroxine 100 g daily down the NG tube. The patient remains on Lovenox 40 mg a day, and Decadron 6 mg a day. She also is getting GOLDEN, 4 mg a day. We will continue to follow make recommendations were appropriate. Prognosis is guarded. Her PEEP was increased to 20 cm water, in an attempt to reduce the FiO2. Additional recommendations and suggestions are forthcoming. Plan dated 08/22/2021. The patient's PEEP was increased from 16 to 20. We will attempt to wean the FiO2. We'll DC the cefepime. She remains on propofol and fentanyl. She will resume tube feedings, once the PEG tube has been inserted. Additional recommendations and suggestions are forthcoming. Prognosis is guarded. We will continue to follow make recommendations where appropriate. The patient should have a PEG tube inserted today. Medications are reviewed. X-ray and labs are reviewed. Plan dated 08/23/2021. The patient did have her PEG tube placed yesterday. She's currently remains on fentanyl and propofol. She is not on Nimbex. The patient's blood gases have been reviewed. The patient continues on tube feeds. He will be increase to goal sometime later today. Because she had not, she gets Lasix 40-60 mg IV push. Additional recommendations and suggestions are forthcoming. We will continue to follow make recommendations where appropriate. Prognosis is guarded. Plan dated 08/24/2021. The patient now has a tracheostomy tube, and a PEG tube. The patient remains on fentanyl and propofol. The patient is not currently on any antibiotics. The patient was weaned off the Nimbex. The patient received tube feeds. We will attempt to wean the FiO2. The patient's on Decadron, and Lovenox. The patient remains on vitamin C, vitamin D3, and zinc. Additional recommendations and suggestions are forthcoming. Prognosis is guarded. We will continue to follow make recommendations where appropriate. Plan dated 08/25/2021. Currently, the patient is about the same today as she was yesterday. She will have a daily interruption of sedation today. She is likely not ready to wean from mechanical ventilation, given her borderline blood gases, FiO2 60%, and her PEEP of 20. We will continue to follow make recommendations were appropriate. The patient continues on Decadron and Lovenox. She also remains on vitamin C, vitamin D3, and zinc. She has completed treatment for her Moraxella catarrhalis pulmonary infection. Prognosis is guarded. Plan dated 08/26/2021. The patient remains about the same. We will do a daily interruption of sedation although, given the fact that she is on 60% FiO2, and a PEEP of 20, it is unlikely she will require or be able to tolerate a spontaneous breathing trial. The patient remains on fentanyl, propofol. She is receiving tube remains. We will continue to follow make recommendations where appropriate. Medications, chest x-ray, and labs are all reviewed. The patient remains on Lovenox, Deca dron, and vitamins. Additional recommendations and suggestions are forthcoming. The patient's currently not on any antibiotics. Prognosis is guarded. Plan dated 08/27/2021. The patient remains about the same. We will attempt a daily interruption of sedation, as we do every day. The patient remains on Lovenox, Decadron, and vitamin C, vitamin D3, and zinc. Medications, ALLERGIES, x-rays, and labs are all reviewed. The patient will have a chest x-ray, CBC, basic metabolic profile, and blood gas tomorrow. Additional recommendations and suggestions are forthcoming. Prognosis is guarded. We will continue to follow make recommendations where appropriate. Plan dated 08/28/2021. The patient remains on the mechanical ventilator. Again, we will attempt a daily interruption of sedation. She remains on Lovenox, Decadron, vitamin C, vitamin D3, and zinc. Chest x-ray, medications, and labs are reviewed. The patient will have a morning chest x-ray, labs, and a blood gas. We will continue to follow make recommendations where appropriate. Prognosis is guarded. Microbiology is negative. Time with Patient: Greater than 30
[2021-08-28 11:47] LABS: Glucose,Whole Blood 164 mg/dL (75-99)
--- NOTE | 2021-08-28 13:58 | P.PN ---
Subjective Progress Note Date: 08/27/21 CHIEF COMPLAINT: : Coronavirus vent dependent respiratory failure HISTORY OF PRESENT ILLNESS: The patient is a 76-year-old female diagnosed with coronavirus an acute hypoxia with respiratory failure also has severe calorie protein malnutrition. She status post tracheostomy followed by gastrostomy tube placement during her hospitalization. Patient's is on goal tube feeds Patient's on full ventilatory management in the intensive care unit. ROS: No fevers or chills. No new chest pain. No new neurological event PHYSICAL EXAM: VITAL SIGNS: Reviewed CONSTITUTIONAL: Well developed and in no acute distress. EYES: Conjuctivae without sclera icterus. Extraocular movements grossly intact. HEAD, EARS, NOSE, THROAT: Moist buccal mucosa. Head is atraumatic, normocephalic. No nasal drainage. Tracheostomy intact. RESPIRATORY: Tachypnea, on full mechanical ventilatory management CARDIOVASCULAR: Palpable 2+ radial pulses. ABDOMEN: Gastrostomy tube intact. MUSCULOSKELETAL: No gross deformity of the lower extremities noted. No clubbing. No cyanosis. SKIN: Good skin turgor. Well perfused. NEUROLOGIC: Cranial nerves II through XII grossly intact. No focal or lateralizing signs. PSYCH: Intubated and sedated CLINICAL LABS: Reviewed. WBC normal 8.5 Hemoglobin low at 10.5 ASSESSMENT: 1. Acute hypoxic respiratory failure and mechanical ventilation 2. Severe protein malnutrition status post gastrostomy tube placement. 3. COVID-19 pneumonia 4. Status post tracheostomy 5. Morbid obesity due to excess calories, BMI 37.6 PLAN: 1. Vent management per intensive care unit 2. Tube feeds management per dietitian 3. Supportive management for coronavirus pneumonia Objective - Vital Signs Vital signs: Vital Signs Temp 98.7 F 08/27/21 08:00 Pulse 71 08/27/21 11:00 Resp 32 H 08/27/21 11:00 BP 89/55 08/27/21 11:00 Pulse Ox 93 L 08/27/21 10:00 Intake & Output 08/26/21 08/27/21 08/27/21 18:59 06:59 18:59 Intake Total 928.031 975.737 412.172 Output Total 1370 580 600 Balance -441.969 395.737 -187.828 Weight 104 kg 106.8 kg Intake: IV 276 276 115 Pressure Bag 0.9% Sodium 36 36 15 Chloride @ 3mL/hr Sodium Chloride 0.9% 1, 240 240 100 000 ml @ 20 mls/hr IV . Q24H [facility] Rx#:[id number] Intake, IV Titration 309.031 363.737 27.172 Amount fentaNYL (PF). 1,000 mcg 109.031 171.181 27.172 In Sodium Chloride 0.9% 80 ml @ 0.5 MCG/KG/HR 4. 795 mls/hr IV .[id number] [facility] Rx#:[id number] propofoL 1,000 mg In 200.000 192.556 Empty Bag 1 bag @ Titrate IV .Q0M [facility] Rx#: [id number] Tube Feeding 283 336 140 Other 60 130 Output: Urine 1370 580 500 Stool 100 Other: Voiding Method Indwelling Catheter Indwelling Catheter Indwelling Catheter # Bowel Movements 1 ABP, PAP, CO, CI - Last Documented Arterial Blood Pressure 136/54 - Labs CBC & Chem 7: 08/28/21 05:25 08/28/21 05:25 Labs: Abnormal Lab Results - Last 24 Hours (Table) 08/26/21 08/26/21 08/26/21 Range/Units 11:41 19:00 20:19 RBC (3.80-5.40) m/uL Hgb (11.4-16.0) gm/dL Hct (34.0-46.0) % RDW (11.5-15.5) % Lymphocytes # (1.0-4.8) k/uL ABG pCO2 (35-45) mmHg ABG pO2 (83-108) mmHg ABG HCO3 (21-25) mmol/L ABG Total CO2 (19-24) mmol/L Chloride (98-107) mmol/L BUN (7-17) mg/dL Creatinine (0.52-1.04) mg/dL Glucose (74-99) mg/dL POC Glucose (mg/dL) 143 H 131 H 121 H (75-99) mg/dL Total Protein (6.3-8.2) g/dL Albumin (3.5-5.0) g/dL 08/26/21 08/27/21 08/27/21 Range/Units 23:31 03:48 03:48 RBC 3.43 L (3.80-5.40) m/uL Hgb 10.5 L (11.4-16.0) gm/dL Hct 33.1 L (34.0-46.0) % RDW 15.6 H (11.5-15.5) % Lymphocytes # 0.6 L (1.0-4.8) k/uL ABG pCO2 (35-45) mmHg ABG pO2 (83-108) mmHg ABG HCO3 (21-25) mmol/L ABG Total CO2 (19-24) mmol/L Chloride 108 H (98-107) mmol/L BUN 65 H (7-17) mg/dL Creatinine 1.29 H (0.52-1.04) mg/dL Glucose 115 H (74-99) mg/dL POC Glucose (mg/dL) 104 H (75-99) mg/dL Total Protein 6.1 L (6.3-8.2) g/dL Albumin 2.7 L (3.5-5.0) g/dL 08/27/21 08/27/21 08/27/21 Range/Units 05:20 05:38 11:37 RBC (3.80-5.40) m/uL Hgb (11.4-16.0) gm/dL Hct (34.0-46.0) % RDW (11.5-15.5) % Lymphocytes # (1.0-4.8) k/uL ABG pCO2 50 H (35-45) mmHg ABG pO2 73 L (83-108) mmHg ABG HCO3 27 H (21-25) mmol/L ABG Total CO2 29 H (19-24) mmol/L Chloride (98-107) mmol/L BUN (7-17) mg/dL Creatinine (0.52-1.04) mg/dL Glucose (74-99) mg/dL POC Glucose (mg/dL) 110 H 147 H (75-99) mg/dL Total Protein (6.3-8.2) g/dL Albumin (3.5-5.0) g/dL Assessment and Plan (1) Tracheostomy in place Current Visit: Yes Status: Acute Code(s): Z93.0 - TRACHEOSTOMY STATUS SNOMED Code(s): 643751474 (2) Gastrostomy in place Current Visit: Yes Status: Acute Code(s): Z93.1 - GASTROSTOMY STATUS SNOMED Code(s): 978046225 (3) Severe protein-calorie malnutrition Current Visit: Yes Status: Acute Code(s): E43 - UNSPECIFIED SEVERE PROTEIN- CALORIE MALNUTRITION SNOMED Code(s): 683649830 (4) Morbid (severe) obesity due to excess calories Current Visit: Yes Status: Acute Code(s): E66.01 - MORBID (SEVERE) OBESITY DUE TO EXCESS CALORIES SNOMED Code(s): 915671574 (5) BMI 37.0-37.9, adult Current Visit: Yes Status: Acute Code(s): Z68.37 - BODY MASS INDEX [BMI] 37.0-37.9, ADULT SNOMED Code(s): 812628011 (6) Acute respiratory failure with hypoxia Current Visit: Yes Status: Acute Code(s): J96.01 - ACUTE RESPIRATORY FAILURE WITH HYPOXIA SNOMED Code(s): 81984309 (7) Hypoxia Current Visit: Yes Status: Acute Code(s): R09.02 - HYPOXEMIA SNOMED Code(s): 359029751 (8) Pneumonia due to COVID-19 virus Current Visit: Yes Status: Acute Code(s): U07.1 - COVID-19; J12.82 - PNEUMONIA DUE TO CORONAVIRUS DISEASE 2019 SNOMED Code(s): 609757654335187191
--- NOTE | 2021-08-28 16:08 | P.PN ---
Subjective Progress Note Date: 08/28/21 CHIEF COMPLAINT: : Coronavirus vent dependent respiratory failure HISTORY OF PRESENT ILLNESS: The patient is a 76-year-old female diagnosed with coronavirus an acute hypoxia with respiratory failure also has severe calorie protein malnutrition. She status post tracheostomy followed by gastrostomy tube placement during her hospitalization. Patient is on tube feeds. She is on full ventilatory support in the intensive care unit. ROS: No fevers or chills. No new chest pain. No new neurological event PHYSICAL EXAM: VITAL SIGNS: Reviewed CONSTITUTIONAL: Well developed and in no acute distress. EYES: Conjuctivae without sclera icterus. Extraocular movements grossly intact. HEAD, EARS, NOSE, THROAT: Moist buccal mucosa. Head is atraumatic, normocephalic. No nasal drainage. Tracheostomy intact. RESPIRATORY: On full mechanical ventilatory management CARDIOVASCULAR: Palpable 2+ radial pulses. ABDOMEN: Gastrostomy tube intact. MUSCULOSKELETAL: No clubbing. No cyanosis. SKIN: Good skin turgor. Well perfused. NEUROLOGIC: No focal or lateralizing signs. PSYCH: Intubated CLINICAL LABS: Reviewed. WBC normal 6.0. Hemoglobin stable 10.5-10.2. ASSESSMENT: 1. Acute hypoxic respiratory failure and mechanical ventilation 2. Severe protein malnutrition status post gastrostomy tube placement. 3. COVID-19 pneumonia 4. Status post tracheostomy 5. Morbid obesity due to excess calories, BMI 37.6 PLAN: 1. Vent management per intensive care unit 2. Tube feeds management per dietitian 3. Supportive management for coronavirus pneumonia Objective - Vital Signs Vital signs: Vital Signs Temp 99.0 F 08/28/21 11:00 Pulse 82 08/28/21 15:00 Resp 30 H 08/28/21 15:00 BP 90/55 08/28/21 15:00 Pulse Ox 93 L 08/28/21 15:00 Intake & Output 08/27/21 08/28/21 08/28/21 18:59 06:59 18:59 Intake Total 1112.925 903.904 912.197 Output Total 1365 700 700 Balance -252.075 203.904 212.197 Weight 105.7 kg Intake: IV 276 276 207 Pressure Bag 0.9% Sodium 36 36 27 Chloride @ 3mL/hr Sodium Chloride 0.9% 1, 240 240 180 000 ml @ 20 mls/hr IV . Q24H [facility] Rx#:[id number] Intake, IV Titration 310.925 291.904 293.197 Amount fentaNYL (PF). 1,000 mcg 110.925 91.904 95.9 In Sodium Chloride 0.9% 80 ml @ 0.5 MCG/KG/HR 4. 795 mls/hr IV .[id number] [facility] Rx#:[id number] propofoL 1,000 mg In 200 200 197.297 Empty Bag 1 bag @ Titrate IV .Q0M [facility] Rx#: [id number] Tube Feeding 336 336 252 Other 190 160 Output: Urine 1265 700 700 Stool 100 Other: Voiding Method Indwelling Catheter Indwelling Catheter Indwelling Catheter # Bowel Movements 1 ABP, PAP, CO, CI - Last Documented Arterial Blood Pressure 96/52 - Labs CBC & Chem 7: 08/28/21 05:25 08/28/21 05:25 Labs: Abnormal Lab Results - Last 24 Hours (Table) 08/27/21 08/27/21 08/27/21 Range/Units 17:22 20:22 23:54 RBC (3.80-5.40) m/uL Hgb (11.4-16.0) gm/dL Hct (34.0-46.0) % RDW (11.5-15.5) % Lymphocytes # (1.0-4.8) k/uL ABG pCO2 (35-45) mmHg ABG pO2 (83-108) mmHg ABG HCO3 (21-25) mmol/L ABG Total CO2 (19-24) mmol/L ABG O2 Saturation (94-97) % Chloride (98-107) mmol/L BUN (7-17) mg/dL Creatinine (0.52-1.04) mg/dL Glucose (74-99) mg/dL POC Glucose (mg/dL) 157 H 124 H 120 H (75-99) mg/dL 08/28/21 08/28/21 08/28/21 Range/Units 05:25 05:25 06:00 RBC 3.29 L (3.80-5.40) m/uL Hgb 10.2 L (11.4-16.0) gm/dL Hct 31.6 L (34.0-46.0) % RDW 15.7 H (11.5-15.5) % Lymphocytes # 0.5 L (1.0-4.8) k/uL ABG pCO2 51 H (35-45) mmHg ABG pO2 67 L (83-108) mmHg ABG HCO3 28 H (21-25) mmol/L ABG Total CO2 29 H (19-24) mmol/L ABG O2 Saturation 93.5 L (94-97) % Chloride 109 H (98-107) mmol/L BUN 67 H (7-17) mg/dL Creatinine 1.21 H (0.52-1.04) mg/dL Glucose 164 H (74-99) mg/dL POC Glucose (mg/dL) (75-99) mg/dL 08/28/21 Range/Units 11:44 RBC (3.80-5.40) m/uL Hgb (11.4-16.0) gm/dL Hct (34.0-46.0) % RDW (11.5-15.5) % Lymphocytes # (1.0-4.8) k/uL ABG pCO2 (35-45) mmHg ABG pO2 (83-108) mmHg ABG HCO3 (21-25) mmol/L ABG Total CO2 (19-24) mmol/L ABG O2 Saturation (94-97) % Chloride (98-107) mmol/L BUN (7-17) mg/dL Creatinine (0.52-1.04) mg/dL Glucose (74-99) mg/dL POC Glucose (mg/dL) 164 H (75-99) mg/dL Assessment and Plan (1) Tracheostomy in place Current Visit: Yes Status: Acute Code(s): Z93.0 - TRACHEOSTOMY STATUS SNOMED Code(s): 754797186 (2) Gastrostomy in place Current Visit: Yes Status: Acute Code(s): Z93.1 - GASTROSTOMY STATUS SNOMED Code(s): 013256561 (3) Severe protein-calorie malnutrition Current Visit: Yes Status: Acute Code(s): E43 - UNSPECIFIED SEVERE PROTEIN- CALORIE MALNUTRITION SNOMED Code(s): 811149435 (4) Morbid (severe) obesity due to excess calories Current Visit: Yes Status: Acute Code(s): E66.01 - MORBID (SEVERE) OBESITY DUE TO EXCESS CALORIES SNOMED Code(s): 759037017 (5) BMI 37.0-37.9, adult Current Visit: Yes Status: Acute Code(s): Z68.37 - BODY MASS INDEX [BMI] 37.0-37.9, ADULT SNOMED Code(s): 888349846 (6) Acute respiratory failure with hypoxia Current Visit: Yes Status: Acute Code(s): J96.01 - ACUTE RESPIRATORY FAILURE WITH HYPOXIA SNOMED Code(s): 56951229 (7) Hypoxia Current Visit: Yes Status: Acute Code(s): R09.02 - HYPOXEMIA SNOMED Code(s): 748889517 (8) Pneumonia due to COVID-19 virus Current Visit: Yes Status: Acute Code(s): U07.1 - COVID-19; J12.82 - PNEUMONIA DUE TO CORONAVIRUS DISEASE 2018 SNOMED Code(s): 836256945799233285
[2021-08-28 17:15] LABS: Glucose,Whole Blood 190 mg/dL (75-99)
[2021-08-28] MEDS: SODIUM CHLORIDE 0.9% 1,000 ML IV SCH (19:43)
[2021-08-28 23:45] LABS: Glucose,Whole Blood 116 mg/dL (75-99)
[2021-08-29] MEDS: fentaNYL (PF). 1,000 MCG in SODIUM CHLORIDE 0.9% 80 ML IV SCH ×2 (00:06→10:50)
[2021-08-29] MEDS: ALBUTEROL HFA INHALER INHALATION SCH ×6 (00:18→20:15)
[2021-08-29 04:19] LABS: Basophils % (A) 0 %; Eosinophils # (A) 0.5 k/uL (0-0.7); Eosinophils % (A) 9 %; HCT 29.7 % (34.0-46.0); HGB 9.8 gm/dL (11.4-16.0); Hypochromasia Moderate; Lymphocytes # (A) 0.7 k/uL (1.0-4.8); Lymphocytes % (A) 12 %; MCH 31.5 pg (25.0-35.0); MCV 95.6 fL (80.0-100.0); Mean Platelet Volume 9.2; Monocytes # (A) 0.5 k/uL (0-1.0); Monocytes % (A) 8 %; Neutrophils # (A) 4.2 k/uL (1.3-7.7); Neutrophils % (A) 69 %; Platelet Count 157 k/uL (150-450); Poikilocytosis Slight; RBC 3.11 m/uL (3.80-5.40)
[2021-08-29 04:30] LABS: Potassium 3.6 mmol/L (3.5-5.1)
[2021-08-29] MEDS ORDERED: Potassium Replacement Protocol 1 EACH MISC MISCELLANE PRN (04:50)
[2021-08-29] MEDS ORDERED: POTASSIUM CHLORIDE 20 MEQ in WATER FOR INJECTION 1 100ML.BAG IVPB STA (04:51)
[2021-08-29] MEDS: LEVOTHYROXINE 100 MCG TAB OG-TUBE SCH (05:32)
[2021-08-29 05:48] LABS: Glucose,Whole Blood 109 mg/dL (75-99)
[2021-08-29 05:53] LABS: ABG Base Excess 2.6 mmol/L; ABG HCO3 28 mmol/L (21-25); ABG PCO2 51 mmHg (35-45); ABG PH 7.35 (7.35-7.45); ABG PO2 75 mmHg (83-108); ABG TCO2 30 mmol/L (19-24); Allen Test Performed? Yes
[2021-08-29] MEDS: INSULIN ASPART (NovoLOG) 100 UNIT/ML VIAL SQ SCH ×3 (06:11→18:41)
--- NOTE | 2021-08-29 06:58 | P.PN ---
Subjective Progress Note Date: 08/29/21 This is a 76-year-old female patient who presented to us on 08/04/2021 for shortness of breath and hypoxemia. The patient tested positive COVID-19 on 07/30/2021. Noted the patient was feeling sick prior to that. She was initially on a BiPAP for support as the patient was quite hypoxic. Her comorbid conditions included diabetes mellitus, hypertension, hypothyroidism and hyperlipidemia. Chest x-ray also showed elevation of the right hemidiaphragm along with diffuse bilateral airspace disease consistent with COVID-19 related pneumonia. Within a few days of admission, the patient decompensated and the patient to be intubated and placed on mechanical ventilator. The patient was intubated on 08/05/2021 and the patient remains intubated since then. The patient is still ventilator dependent as the patient had developed over the related pneumonia with secondary ARDS. She was originally admitted to the hospital 08/04/2021. The patient was subsequently intubated on 08/05/2021 and because of failure to wean, the patient underwent a tracheostomy tube insertion (BIVONA #8) of PEG tube insertion on 08/24/2021. The patient has been ventilator dependent since. The patient remains in a volume cycle assist- control mechanical ventilation at the rate of 32 with a tidal volume of 400 and FiO2 of 60% with a PEEP of 20. The peak airway pressure is 41. The static pressure is 37 Chest x-ray was noted that showed diffuse bilateral pulmonary infiltrates. Note that the patient during the course of her illness was found to have Moraxella catarrhalis in her sputum and this was treated appropriately with IV antibiotics and back and the patient received IV cefepime and Baricitinib was discontinued. The patient remains on Decadron. The patient is currently on propofol running at 35 mg/kg per minute and fentanyl is running at 1 mcg/kg/h. The patient is well sedated and significant for a mechanical ventilator. The patient is also receiving enteral feeding for nutritional support and the patient is currently on vital AF at the rate of 28 mL an hour.. The overall fluid balance has been positive and the patient was weighing as high as 106 kg and the weight currently is at 102. The morning blood gases shows a pH of 7.35 with a pCO2 of 51 and pO2 of 75. The white cell count and 6 with a hemoglobin of 9.8, electrolytes are normal with a sodium of 141, BUN is at 70 with a creatinine of 1.28. Her creatinine has been stable over this past week. No sputum has been checked since the original positive sputum culture from 08/13/2021 which was positive for Moraxella catarrhalis. Objective - Vital Signs Vital signs: Vital Signs Temp 98 F 08/29/21 04:00 Pulse 75 08/29/21 06:00 Resp 25 H 08/29/21 06:00 BP 113/63 08/29/21 06:00 Pulse Ox 90 L 08/29/21 06:00 Intake & Output 08/28/21 08/28/21 08/29/21 06:59 18:59 06:59 Intake Total 545.034 1111.197 963 Output Total 700 860 515 Balance 203.904 335.197 448 Weight 105.7 kg 102.2 kg Intake: IV 276 276 299 Pressure Bag 0.9% Sodium 36 36 39 Chloride @ 3mL/hr Sodium Chloride 0.9% 1, 240 240 260 000 ml @ 20 mls/hr IV . Q24H [facility] Rx#:[id number] Intake, IV Titration 291.904 393.197 300 Amount fentaNYL (PF). 1,000 mcg 91.904 95.9 100 In Sodium Chloride 0.9% 80 ml @ 0.5 MCG/KG/HR 4. 795 mls/hr IV .[id number] [facility] Rx#:[id number] propofoL 1,000 mg In 200 297.297 200 Empty Bag 1 bag @ Titrate IV .Q0M [facility] Rx#: [id number] Tube Feeding 336 336 364 Other 190 Output: Urine 700 860 515 Other: Voiding Method Indwelling Catheter Indwelling Catheter Indwelling Catheter ABP, PAP, CO, CI - Last Documented Arterial Blood Pressure 120/53 - Exam Gen. appearance, No acute distress, sedated , with an orally placed endotracheal tube and NG tube. HEENT examination is grossly unremarkable. Neck supple. Full range of motion. No adenopathy thyromegaly or neck vein distention. Cardiac exam revealed the PMI to be normally situated and sized. The rhythm was regular and no extrasystoles were noted during several minutes of auscultation. The first and second heart sounds were normal and physiologic splitting of the second heart sound was noted. There were no murmurs, rubs, clicks, or gallops. Lungs reveal use bilateral rhonchi. No wheezes or crackles. Breath sounds equal. Saturations 93%. Abdominal exam revealed normal bowel sounds. The abdomen was soft, non-tender, and without masses, organomegaly, or appreciable enlargement of the abdominal a itz. Extremities are intact. No cyanosis clubbing or edema. Skin is without rash or lesion. Neurologic examination cannot be adequately assessed as the patient's currently sedated - Labs CBC & Chem 7: 08/29/21 04:00 08/29/21 04:00 Labs: Abnormal Lab Results - Last 24 Hours (Table) 08/28/21 08/28/21 08/28/21 Range/Units 11:44 17:13 23:44 RBC (3.80-5.40) m/uL Hgb (11.4-16.0) gm/dL Hct (34.0-46.0) % RDW (11.5-15.5) % Lymphocytes # (1.0-4.8) k/uL ABG pCO2 (35-45) mmHg ABG pO2 (83-108) mmHg ABG HCO3 (21-25) mmol/L ABG Total CO2 (19-24) mmol/L Chloride (98-107) mmol/L BUN (7-17) mg/dL Creatinine (0.52-1.04) mg/dL Glucose (74-99) mg/dL POC Glucose (mg/dL) 164 H 190 H 116 H (75-99) mg/dL 08/29/21 08/29/21 08/29/21 Range/Units 04:00 04:00 05:47 RBC 3.11 L (3.80-5.40) m/uL Hgb 9.8 L (11.4-16.0) gm/dL Hct 29.7 L (34.0-46.0) % RDW 16.0 H (11.5-15.5) % Lymphocytes # 0.7 L (1.0-4.8) k/uL ABG pCO2 (35-45) mmHg ABG pO2 (83-108) mmHg ABG HCO3 (21-25) mmol/L ABG Total CO2 (19-24) mmol/L Chloride 110 H (98-107) mmol/L BUN 70 H (7-17) mg/dL Creatinine 1.28 H (0.52-1.04) mg/dL Glucose 104 H (74-99) mg/dL POC Glucose (mg/dL) 109 H (75-99) mg/dL 08/29/21 Range/Units 05:50 RBC (3.80-5.40) m/uL Hgb (11.4-16.0) gm/dL Hct (34.0-46.0) % RDW (11.5-15.5) % Lymphocytes # (1.0-4.8) k/uL ABG pCO2 51 H (35-45) mmHg ABG pO2 75 L (83-108) mmHg ABG HCO3 28 H (21-25) mmol/L ABG Total CO2 30 H (19-24) mmol/L Chloride (98-107) mmol/L BUN (7-17) mg/dL Creatinine (0.52-1.04) mg/dL Glucose (74-99) mg/dL POC Glucose (mg/dL) (75-99) mg/dL Assessment and Plan Plan: 1 Acute hypoxemic respiratory failure secondary to coronavirus associated pneumonia, status post intubation and mechanical ventilation on 08/05/2021. The patient was initially treated with Decadron 6 mg IV every 24 hours and Baricitinib per protocol. Noted the patient is also on Lovenox for DVT prophylaxis. Doppler of the lower extremities been negative. Chest x-ray diffuse bilateral pulmonary infiltrates consistent with COVID-19 related pneumonia. A having a potentially superinfection. Moraxella catarrhalis was cultures and sputum. The chest x-ray findings are stable. Oxygenation is unchanged and stable. The patient is still allowing permissive hypercapnia. The patient is currently on IV cefepime. The patient is also on Decadron. She is off Baricitinib for now. I reviewed the follow-up chest x-ray from today. Findings and essentially untreated the patient had diffuse breath and pulmonary infiltrates consistent with COVID 19 related pneumonia and ARDS. Peak and static pressure remains quite elevated and the patient is still requiring high level of PEEP for oxygenation. As such, limited progress has been done on this patient for now. Hemodynamically stable on no pressors. 2 ARDS secondary to COVID 19 related pneumonia. The patient's lungs are extremely noncompliant with elevated peak and static pressure 3 Moraxella catarrhalis in the sputum, not clear of true infection completed antibiotic therapy 4 Elevated inflammatory marker secondary to coronavirus infection. Note that inflammatory markers of been improving 5 History of essential hypertension. 6 History of hyperlipidemia. 7 History of diabetes mellitus. The patient is currently on Levemir insulin with adequate blood sugar control in addition to a sliding scale coverage. 8 History of hypothyroidism Plan: Continue ventilator support , no changes on a mechanical ventilator for today Give the patient sedation holiday just to assess the mental status change. Following that the patient will placed on propofol and fentanyl. Check triglyceride level Start the patient on Lasix 20 mg IV push every 12 hours in an attempt to keep her negative fluid balance Repeat a sputum Gram stain and culture Continue the Decadron or now Continue enteral feeding for nutritional support Prognosis remains extremely poor specially with her comorbidities and the prolonged respiratory failure We'll discuss this with the family We'll continue to follow. There is a critically care evaluation that was performed and more than 30 minutes Time with Patient: Greater than 30 Time with Patient: Greater than 30
[2021-08-29] MEDS: INSULIN DETEMIR (LEVEMIR) 100 UNIT/ML SYR SQ SCH ×2 (09:15→20:20)
[2021-08-29] MEDS: ENOXAPARIN 40 MG/0.4 ML SYRINGE SQ SCH (09:16)
[2021-08-29] MEDS: FUROSEMIDE 10 MG/ML 4 ML VIAL IV SCH (09:17)
[2021-08-29] MEDS: ZINC SULFATE 220 MG CAP PO SCH (09:17)
[2021-08-29] MEDS: ASCORBIC ACID 500 MG TAB PO SCH (09:17)
[2021-08-29] MEDS: CHOLECALCIFEROL 125 MCG (5000 IU) TABLET PO SCH (09:17)
[2021-08-29] MEDS: CHLORHEXIDINE GLUCONATE 15 ML CUP MUCOUS MEM SCH ×2 (09:17→19:54)
[2021-08-29] MEDS: PANTOPRAZOLE 40 MG/10 ML VIAL IVP SCH (09:17)
[2021-08-29] MEDS: DEXAMETHASONE SOD PHOSPHATE 10 MG/ML 1 ML VIAL IVP SCH (09:17)
--- NOTE | 2021-08-29 09:50 | XR ---
EXAMINATION TYPE: XR chest 1V portable DATE OF EXAM: 08/29/2021 COMPARISON: 08/28/2021 HISTORY: Cough TECHNIQUE: Single frontal view of the chest is obtained. FINDINGS: Diffuse interstitial and alveolar infiltrates. Hypertrophic and degenerative change of the spine. Tracheostomy tube and left-sided PICC line are seen. Biapical pleural thickening. Chronic kathryn earing changes involving the AC joints. IMPRESSION: Bilateral infiltrate stable
[2021-08-29 12:10] LABS: Glucose,Whole Blood 145 mg/dL (75-99)
--- NOTE | 2021-08-29 12:27 | P.PN ---
Subjective This is a 76-year-old white female who not been seen in our office for over a year. He came emergency room with cough congestion dyspnea and weakness and fatigue for several weeks. She tested positive for cover a week ago with a home test per the emergency room physician. Per the ER physician she not been vaccinated for current receive any [place] and treatment. She indicates shortness of breath had gotten worse. She denied any fevers severe headache chest pain or pressure. She was seen emergency room. She was on a BiPAP at this time in the intensive care unit.. Her conversation is limited by this. 08/06/2021: Patient is now intubated and sedated/paralyzed. This was done approximately 8 PM last night. She has COVID-19 pneumonia. She remains afebrile. Pulse is somewhat bradycardic over the past 18 hours. Respiratory rate is mechanically ventilated. Blood pressure is stable to this time. Labs show leukocytosis with a WBC count of 15.4 hemoglobin was 12 3 platelets are 113. There is an absolute neutrophilia at 14. Blood gases show pH 7.41 with a P CO2 of 40 and a PO2 of 78. Chemistries essentially normal slightly elevated BUN 21 creatinine 0.78. Glucoses are better controlled. She was placed on insulin drip yesterday. Cultures no growth after 24 hours and the blood, sputum culture pending. Chest x-ray shows bilateral multifocal confluent opacities consistent COVID-19 infection. Improved aeration suggesting improving. He has orders for Ventolin HFA inhaler, remains on vitamin C vitamin D, along with the dexamethasone. She is receiving Baricitnib all for Covid. She is paralyzed and Nimbex and remains on propofol for sedation. Staff indicated tube feeds may start soon. 08/07/2021:This is a 76-year-old female who presented to emergency room with cough, congestion, dyspnea and weakness and fatigue over several weeks. Approximately week ago patient took a home Covid test which indicated that she was positive. She has not received Covid vaccine or treatment for the positive Covid test. When symptoms worsened she decided to present to the ER for evaluation and treatment. She was initially placed on BiPAP in the intensive care unit and subsequently been intubated. She is currently paralyzed with c isatracurium, sedated with propofol and utilizing Toradol IV push for pain management. Currently mechanically ventilated on 80% FiO2. Patient is afebrile 96.9, respiratory rate of 26, blood pressure is stable at 109/51, maintain oxygen saturation of 90% and entitle CO2 of 28. Most recent set of vital signs WC count of 15.5, hematocrit of 35.6, hemoglobin 12.0, platelet count 119. Chemistry panel reveals a sodium 138, potassium 3.8, BUN of 19, creatinine 0.72, GFR 83, AST of 99, ELT 106, alk phos 131, LDH 847. TSH of 8.37. T4 0.5, pro- calcitonin 0.34 08/08/2021 remains mechanical ventilator-dependent, FiO2 decreased to 65%, PEEP remains at 20. Continues on Nimbex and diprovan drips. Chest x-ray reported patchy bilateral infiltrate with diffuse interstitial pattern, tiny right-sided pleural effusion, received Lasix. Maintained on Rocephin (Moraxella catarrhalis in the sputum) , Covid cocktail with Baricitinib discontinued. Blood sugars elevated. Afebrile, WBC 13.3. Pro-calcitonin 0.34. 08/09/2021 continues on FiO2 65% with PEEP of 20, Nimbex and diprovan drips. Chest x-ray reporting persistent patchy bilateral infiltrate with diffuse interstitial pattern. Received additional Lasix today Blood sugars elevated, improving, A1c 8.4. Afebrile, WBC 14.3. D-dimer 0.77, ferritin increased to 2512, LDH decreased to 606, CRP increased to 21.2. LFTs decreasing with the exception of alkaline phosphatase, increased to 171. ProBNP 453. Receiving tube feeds to call, tolerating well with minimal to no residuals, stooling. 08/10/2021 remains vent dependent, FiO2 60%/+18 of PEEP. Maintained on Nimbex and diprovan drips. Chest x-ray noted, unchanged. Currently afebrile, T-max 99.1, WBC trending down, 12.7. BUN 24, and 0.74. Repeat pro-calcitonin 0.31. Additional Levemir added to med regimen yesterday, Blood sugars controlled. Received Lasix IV push yesterday again, diuresed well with 24-hour I&O reflecting a negative fluid balance. Sodium within normal limits, 142. 08/11/2021 yesterday patient of placed on Nimbex holiday, during the night unable to tolerate became asynchronous with the ventNimbex resumed. Diprovan drip continues. Maintained on FiO2 65% with PEEP decreased to 17. Maintained on Rocephin ,Covid cocktail. Chest x-ray reporting stable diffuse bilateral infiltrate. Inflammatory markers decreasing.Tolerating tube feeds minimal to no residual. Levemir increased yesterday with blood sugars controlled. Afebrile. 08/12/2021 patient was given another paralytic holiday yesterday and continues off of Nimbex. During the night, difficulty maintaining O2 sats, cuff leak discovered, required higher FiO2. Maintained on diprovan. Currently FIO2 90%, PEEP of 16. Chest x-ray reporting bilateral moderate pulmonary edema, possibly worsening, antibiotics adjusted, now on cefepime. Maintained on Covid cocktail. Blood sugars controlled. Renal function stable. 08/15/2021 remains vent dependent, FiO2 75%/+16 of PEEP. Maintained on diprovan and fentanyl drips. Currently off paralytics. Sedation holiday attempted yesterday with minimal improvement of mental status, no response to any stimuli reported. Chest x-ray reporting persistent bilateral airspace disease. Continues on cefepime. Tolerating tube feeds at goal, with minimal to no residuals, blood sugars controlled. Inflammatory markers mildly increased. 08/16/2021 remains vent dependent, FiO2 65%/+16 of PEEP. Chest x-ray reporting diffuse interstitial and alveolar infiltrates. Maintained on diprovan and fentanyl drips. Marine Propulsion Technician currently discussing treatment of trach and peg with family. T-max 99.1, WBC 15.7. D-dimer, CRP decreased, LDH increased. 08/17/2021 vent dependent, FiO2 50%/+16 of PEEP. Chest x-ray reporting diffuse interstitial and alveolar infiltrates. Tube feeds and lovenox on hold. Maintained on IV fluid hydration D5/45. Scheduled for trach and peg today. T-max 99.7, WBC 13.5. Creatinine increased up to 1.15. 08/18/2021 Remains vent dependent, FiO2 70+16 of PEEP.Maintained on diprovan, fentanyl. PEG tube attempted yesterday, surgeon unable to pass scope. Patient is scheduled for tracheostomy and potential PEG tube placement today. 08/19/2021 Tracheostomy placed yesterday. Cuff leak present, TV increased. Maintained on 90% FiO2/+16 of PEEP. Chest x-ray reporting bilateral infiltrates.Continues on Nimbex, fentanyl and diprovan. PICC line placed. Tolerating tube feeds via OG of vital AF at goal of 31ml per hour. Sodium normalized, renal function stable. Blood sugars better controlled. 08/20/2021: Patient remains afebrile. She continues to be mechanically ventilated through her tracheostomy tube. Blood pressure stable. She remains on fentanyl, propofol, and cefepime IVs along with the oral tube feeds. Curr ently patient's on an FiO2 of 75%. PEEP is 16. Labs show WBC count 9.5. Blood gases today show pH 7.46 with PCO2 45 and a PO2 of 54. Glucose over the past 24 hours is been between 1:30 and 117. Chest x-ray she shows correlate for pneumonia and ARDS. 08/21/2021: Patient remains sedated with tracheostomy tube. A PEG tube placement is planned for tomorrow. She is on oral gastric feeding tube at goal at this time. She is afebrile. Vitals are stable. She remains mechanically ventilated. She currently remains on fentanyl and propofol, the doses have been reduced. Staff report she'll open her eyes but is not following commands at this time. She is a Sosa catheter to gravity. There's been no bowel movement. Multiple days. She remains on the COVID-19 cocktail including Decadron, L ovenox, Protonix, vitamin C. She remains on cefepime antibiotics for possible Moraxella pneumonia. 08/29/2021: Patient remains sedated with tracheostomy tube. PEG tube placement done 08/22/2021. She is afebrile. She remains mechanically ventilated. FIO2 is 60%. PEEP 20. She currently remains on Fentanyl and propofol, Staff report she'll open her eyes but is not following commands at this time. She is a Sosa catheter to gravity. . She remains on the COVID-19 cocktail including Decadron, Lovenox, Protonix, vitamin C. she is NOT improving. Objective - Vital Signs Vital signs: Vital Signs Temp 98.8 F 08/29/21 12:00 Pulse 87 08/29/21 12:00 Resp 27 H 08/29/21 12:00 BP 115/65 08/29/21 12:00 Pulse Ox 91 L 08/29/21 12:00 Intake & Output 08/28/21 08/29/21 08/29/21 18:59 06:59 18:59 Intake Total 1195.197 963 604.352 Output Total 860 515 910 Balance 335.197 448 -305.648 Weight 102.2 kg Intake: IV 276 299 142 Pressure Bag 0.9% Sodium 36 39 42 Chloride @ 3mL/hr Sodium Chloride 0.9% 1, 240 260 100 000 ml @ 20 mls/hr IV . Q24H [facility] Rx#:[id number] Intake, IV Titration 393.197 300 252.352 Amount fentaNYL (PF). 1,000 mcg 95.9 100 106.873 In Sodium Chloride 0.9% 80 ml @ 0.5 MCG/KG/HR 4. 795 mls/hr IV .[id number] [facility] Rx#:[id number] propofoL 1,000 mg In 297.297 200 145.479 Empty Bag 1 bag @ Titrate IV .Q0M [facility] Rx#: [id number] Tube Feeding 336 364 140 Other 190 70 Output: Urine 860 515 910 Other: Voiding Method Indwelling Catheter Indwelling Catheter ABP, PAP, CO, CI - Last Documented Arterial Blood Pressure 148/63 - Exam GENERAL: elderly female currently with tracheostomy being mechanically ventilated and sedated. NECK: Tracheostomy tube in place. Oral feeding tube in place. LUNGS: Breath sounds coarse bilaterally and mechanically ventilated HEART: Regular rate and rhythm without murmurs, rubs or gallops.S1S2 Normal ABDOMEN: Soft, nontender, normoactive bowel sounds. No guarding, no rebound. No masses appreciated. PEG in place LUQ EXTREMITIES:no pitting or edema. No clubbing or cyanosis. NEUROLOGICAL: Sedated SKIN: Warm, Dry, normal turgor, no rashes or lesions noted. - Labs CBC & Chem 7: 08/29/21 04:00 08/29/21 04:00 Labs: Abnormal Lab Results - Last 24 Hours (Table) 08/28/21 08/28/21 08/29/21 Range/Units 17:13 23:44 04:00 RBC 3.11 L (3.80-5.40) m/uL Hgb 9.8 L (11.4-16.0) gm/dL Hct 29.7 L (34.0-46.0) % RDW 16.0 H (11.5-15.5) % Lymphocytes # 0.7 L (1.0-4.8) k/uL ABG pCO2 (35-45) mmHg ABG pO2 (83-108) mmHg ABG HCO3 (21-25) mmol/L ABG Total CO2 (19-24) mmol/L Chloride (98-107) mmol/L BUN (7-17) mg/dL Creatinine (0.52-1.04) mg/dL Glucose (74-99) mg/dL POC Glucose (mg/dL) 190 H 116 H (75-99) mg/dL 08/29/21 08/29/21 08/29/21 Range/Units 04:00 05:47 05:50 RBC (3.80-5.40) m/uL Hgb (11.4-16.0) gm/dL Hct (34.0-46.0) % RDW (11.5-15.5) % Lymphocytes # (1.0-4.8) k/uL ABG pCO2 51 H (35-45) mmHg ABG pO2 75 L (83-108) mmHg ABG HCO3 28 H (21-25) mmol/L ABG Total CO2 30 H (19-24) mmol/L Chloride 110 H (98-107) mmol/L BUN 70 H (7-17) mg/dL Creatinine 1.28 H (0.52-1.04) mg/dL Glucose 104 H (74-99) mg/dL POC Glucose (mg/dL) 109 H (75-99) mg/dL 08/29/21 Range/Units 12:09 RBC (3.80-5.40) m/uL Hgb (11.4-16.0) gm/dL Hct (34.0-46.0) % RDW (11.5-15.5) % Lymphocytes # (1.0-4.8) k/uL ABG pCO2 (35-45) mmHg ABG pO2 (83-108) mmHg ABG HCO3 (21-25) mmol/L ABG Total CO2 (19-24) mmol/L Chloride (98-107) mmol/L BUN (7-17) mg/dL Creatinine (0.52-1.04) mg/dL Glucose (74-99) mg/dL POC Glucose (mg/dL) 145 H (75-99) mg/dL Assessment and Plan (1) Acute respiratory failure with hypoxia Current Visit: Yes Status: Acute Code(s): J96.01 - ACUTE RESPIRATORY FAILURE WITH HYPOXIA SNOMED Code(s): 71422266 (2) Pneumonia due to COVID-19 virus Current Visit: Yes Status: Acute Code(s): U07.1 - COVID-19; J12.82 - PNEUMONIA DUE TO CORONAVIRUS DISEASE 2019 SNOMED Code(s): 290022469965393615 (3) Hypoxia Current Visit: Yes Status: Acute Code(s): R09.02 - HYPOXEMIA SNOMED Cod e(s): 882363588 (4) Hypothyroidism, unspecified Current Visit: Yes Status: Acute Code(s): E03.9 - HYPOTHYROIDISM, UNSPECIFIED SNOMED Code(s): 88462416 (5) Mixed hyperlipidemia Current Visit: Yes Status: Acute Code(s): E78.2 - MIXED HYPERLIPIDEMIA SNOMED Code(s): 384339303 (6) Type 2 diabetes mellitus without complications Current Visit: Yes Status: Acute Code(s): E11.9 - TYPE 2 DIABETES MELLITUS WITHOUT COMPLICATIONS SNOMED Code(s): 538073954 Plan: I will defer to critical care/military source operations officer while 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 She'll remain on her current medications. She'll continue on the current covid protocol, Continue dexamethasone, Lovenox, pantoprazole, levothyroxine, insulin scale, Levemir daily at bedtime PEG tube with feeds at goal She'll be reevaluated next 24 hours
--- NOTE | 2021-08-29 12:40 | P.PN ---
Subjective Progress Note Date: 08/29/21 CHIEF COMPLAINT: COVID-19 pneumonia HISTORY OF PRESENT ILLNESS: Patient remains in the ICU intubated and on mechanical ventilation. Patient is status post PEG and trach placement. Patient is tolerating tube feedings. No residual reported. Patient's tube feeds remain at goal. Last BM [id number]. Afebrile. WBC 6.0 Hgb 9.8 platelets 157 PHYSICAL EXAM: VITAL SIGNS: Reviewed. GENERAL: Well-developed in no acute distress. HEENT: No sclera icterus. Moist buccal mucosa. Head is atraumatic, normoce phalic. Tracheostomy site clean dry and intact ABDOMEN: Soft. Nondistended. Nontender. PEG tube site clean dry and intact NEUROLOGIC: intubated and sedated ASSESSMENT: 1. Acute hypoxic respiratory failure secondary to COVID-19 pneumonia requiring mechanical ventilation status post tracheostomy placement 2. Severe protein calorie malnutrition status post PEG tube placement PLAN: -Continue tube feedings -Continue to monitor tracheostomy and PEG tube site -Continue ICU management -Continue supportive care Physician Miniature Set Designer note has been reviewed by physician. Signing provider agrees with the documented findings, assessment, and plan of care. Objective - Vital Signs Vital signs: Vital Signs Temp 98.8 F 08/29/21 12:00 Pulse 87 08/29/21 12:00 Resp 27 H 08/29/21 12:00 BP 115/65 08/29/21 12:00 Pulse Ox 91 L 08/29/21 12:00 Intake & Output 08/28/21 08/29/21 08/29/21 18:59 06:59 18:59 Intake Total 1195.197 963 610.688 Output Total 860 515 910 Balance 335.197 448 -299.312 Weight 102.2 kg Intake: IV 276 299 142 Pressure Bag 0.9% Sodium 36 39 42 Chloride @ 3mL/hr Sodium Chloride 0.9% 1, 240 260 100 000 ml @ 20 mls/hr IV . Q24H [facility] Rx#:[id number] Intake, IV Titration 393.197 300 258.688 Amount fentaNYL (PF). 1,000 mcg 95.9 100 106.873 In Sodium Chloride 0.9% 80 ml @ 0.5 MCG/KG/HR 4. 795 mls/hr IV .[id number] [facility] Rx#:[id number] propofoL 1,000 mg In 297.297 200 151.815 Empty Bag 1 bag @ Titrate IV .Q0M [facility] Rx#: [id number] Tube Feeding 336 364 140 Other 190 70 Output: Urine 860 515 910 Other: Voiding Method Indwelling Catheter Indwelling Catheter ABP, PAP, CO, CI - Last Documented Arterial Blood Pressure 148/63 - Labs CBC & Chem 7: 08/29/21 04:00 08/29/21 04:00 Labs: Abnormal Lab Results - Last 24 Hours (Table) 08/28/21 08/28/21 08/29/21 Range/Units 17:13 23:44 04:00 RBC 3.11 L (3.80-5.40) m/uL Hgb 9.8 L (11.4-16.0) gm/dL Hct 29.7 L (34.0-46.0) % RDW 16.0 H (11.5-15.5) % Lymphocytes # 0.7 L (1.0-4.8) k/uL ABG pCO2 (35-45) mmHg ABG pO2 (83-108) mmHg ABG HCO3 (21-25) mmol/L ABG Total CO2 (19-24) mmol/L Chloride (98-107) mmol/L BUN (7-17) mg/dL Creatinine (0.52-1.04) mg/dL Glucose (74-99) mg/dL POC Glucose (mg/dL) 190 H 116 H (75-99) mg/dL 08/29/21 08/29/21 08/29/21 Range/Units 04:00 05:47 05:50 RBC (3.80-5.40) m/uL Hgb (11.4-16.0) gm/dL Hct (34.0-46.0) % RDW (11.5-15.5) % Lymphocytes # (1.0-4.8) k/uL ABG pCO2 51 H (35-45) mmHg ABG pO2 75 L (83-108) mmHg ABG HCO3 28 H (21-25) mmol/L ABG Total CO2 30 H (19-24) mmol/L Chloride 110 H (98-107) mmol/L BUN 70 H (7-17) mg/dL Creatinine 1.28 H (0.52-1.04) mg/dL Glucose 104 H (74-99) mg/dL POC Glucose (mg/dL) 109 H (75-99) mg/dL 08/29/21 Range/Units 12:09 RBC (3.80-5.40) m/uL Hgb (11.4-16.0) gm/dL Hct (34.0-46.0) % RDW (11.5-15.5) % Lymphocytes # (1.0-4.8) k/uL ABG pCO2 (35-45) mmHg ABG pO2 (83-108) mmHg ABG HCO3 (21-25) mmol/L ABG Total CO2 (19-24) mmol/L Chloride (98-107) mmol/L BUN (7-17) mg/dL Creatinine (0.52-1.04) mg/dL Glucose (74-99) mg/dL POC Glucose (mg/dL) 145 H (75-99) mg/dL
[2021-08-29 18:18] LABS: Glucose,Whole Blood 147 mg/dL (75-99)
[2021-08-29] MEDS: SODIUM CHLORIDE 0.9% 1,000 ML IV SCH (19:55)
[2021-08-29] MEDS: FUROSEMIDE 10 MG/ML 2 ML VIAL IV SCH (19:57)
[2021-08-30 00:08] LABS: Glucose,Whole Blood 111 mg/dL (75-99)
[2021-08-30] MEDS: INSULIN ASPART (NovoLOG) 100 UNIT/ML VIAL SQ SCH ×4 (00:20→17:51)
[2021-08-30] MEDS: ALBUTEROL HFA INHALER INHALATION SCH ×7 (01:36→23:27)
[2021-08-30 05:30] LABS: Glucose,Whole Blood 108 mg/dL (75-99)
[2021-08-30 05:32] LABS: ABG Base Excess 6.1 mmol/L; ABG HCO3 31 mmol/L (21-25); ABG Oxygen Saturation 95.9 % (94-97); ABG PCO2 50 mmHg (35-45); ABG PO2 75 mmHg (83-108); ABG TCO2 32 mmol/L (19-24); Allen Test Performed? Yes
[2021-08-30 05:39] LABS: Basophils % (A) 0 %; Eosinophils # (A) 0.8 k/uL (0-0.7); Eosinophils % (A) 10 %; HCT 30.6 % (34.0-46.0); Hypochromasia Slight; Lymphocytes # (A) 0.8 k/uL (1.0-4.8); Lymphocytes % (A) 9 %; MCH 31.1 pg (25.0-35.0); MCHC 32.6 g/dL (31.0-37.0); MCV 95.3 fL (80.0-100.0); Mean Platelet Volume 9.1; Monocytes # (A) 0.6 k/uL (0-1.0); Monocytes % (A) 8 %; Neutrophils # (A) 5.7 k/uL (1.3-7.7); Neutrophils % (A) 70 %; Platelet Count 160 k/uL (150-450); Poikilocytosis Slight; RBC 3.21 m/uL (3.80-5.40); RDW 15.9 % (11.5-15.5); WBC 8.1 k/uL (3.8-10.6)
[2021-08-30 05:43] LABS: Albumin 2.5 g/dL (3.5-5.0); Calcium 9.4 mg/dL (8.4-10.2); Potassium 3.7 mmol/L (3.5-5.1); Total Bilirubin 0.4 mg/dL (0.2-1.3); Total Protein 5.7 g/dL (6.3-8.2)
[2021-08-30] MEDS: LEVOTHYROXINE 100 MCG TAB OG-TUBE SCH (06:50)
--- NOTE | 2021-08-30 07:40 | P.PN ---
Subjective Progress Note Date: 08/30/21 This is a 76-year-old female patient who presented to us on 08/04/2021 for shortness of breath and hypoxemia. The patient tested positive COVID-19 on 07/30/2021. Noted the patient was feeling sick prior to that. She was initially on a BiPAP for support as the patient was quite hypoxic. Her comorbid conditions included diabetes mellitus, hypertension, hypothyroidism and hyperlipidemia. Chest x-ray also showed elevation of the right hemidiaphragm along with diffuse bilateral airspace disease consistent with COVID-19 related pneumonia. Within a few days of admission, the patient decompensated and the patient to be intubated and placed on mechanical ventilator. The patient was intubated on 08/05/2021 and the patient remains intubated since then. On today's evaluation of 08/30/2021, I'm seeing the patient for a follow-up. This is a case of Coumadin associated pneumonia with respiratory failure. The patient remains intubated on a mechanical ventilator. The patient had a tracheostomy tube insertion on 08/24/2021 and the patient has a Bivona tracheostomy tube in place for now and effective also in place. The patient this morning he remains sedated and she is on propofol which is running at 35 mcg/kg per minute and fentanyl was turned off yesterday. The patient is currently on no paralytics. The patient remains on Decadron. While on a mechanical ventilator, she remains on assist control mode at the rate of 32, tidal volumes of 400, FiO2 is currently at 60% with a PEEP of 20. Peak airway pressures on a mechanical ventilator is 44 on today's evaluation. The static pressure is 41. The chest x-ray is showing stable bilateral lower lobe pulmonary infiltrates and the tracheostomy tube is in a good location. Note that the patient did have Moraxella catarrhalis and her sputum earlier and this was treated and currently she is on no antibiotics. She was noted to be in a positive fluid balance. She was started on diuretics yesterday and she is currently receiving Lasix 40 mg IV every 12 hours. Overall net fluid balance over the past 24 hours has been -1400. In terms of her labs from today, the patient has a blood gas that shows a pH of 7.4 with a pCO2 of 50 and pO2 of 75. The white cell count today is at 8.1 with a hemoglobin of 10 and a platelet count of 160. As for the electrolytes, the creatinine is stable at 1.29 with a BUN of 65, rest of the electrolytes are all within normal limits. The triglyceride level is currently at 262. The patient is currently on Decadron which is running at 6 mg IV every 24 hours. The patient is also on Levemir insulin at a dose of 30 units in the morning and 10 units in the evening along with a slight scale coverage. IV fluids are currently at KVO as the patient is being diuresis. Objective - Vital Signs Vital signs: Vital Signs Temp 97.5 F L 08/30/21 04:00 Pulse 89 08/30/21 07:00 Resp 34 H 08/30/21 07:00 BP 143/87 08/30/21 07:00 Pulse Ox 90 L 08/30/21 07:00 Intake & Output 08/29/21 08/30/21 08/30/21 18:59 06:59 18:59 Intake Total 1083.873 991 Output Total 1785 1750 Balance -701.127 -759 Weight 102.2 kg 102.6 kg Intake: IV 253 299 Pressure Bag 0.9% Sodium 33 39 Chloride @ 3mL/hr Sodium Chloride 0.9% 1, 220 260 000 ml @ 20 mls/hr IV . Q24H [facility] Rx#:[id number] Intake, IV Titration 306.873 300 Amount fentaNYL (PF). 1,000 mcg 106.873 In Sodium Chloride 0.9% 80 ml @ 0.5 MCG/KG/HR 4. 795 mls/hr IV .[id number] [facility] Rx#:[id number] propofoL 1,000 mg In 200.000 300 Empty Bag 1 bag @ Titrate IV .Q0M [facility] Rx#: [id number] Tube Feeding 364 392 Other 160 Output: Urine 1785 1750 Other: Voiding Method Indwelling Catheter Indwelling Catheter ABP, PAP, CO, CI - Last Documented Arterial Blood Pressure 143/57 - Exam Gen. appearance, No acute distress, sedated , with an orally placed endotracheal tube and NG tube. HEENT examination is grossly unremarkable. Neck supple. Full range of motion. No adenopathy thyromegaly or neck vein distention. Cardiac exam revealed the PMI to be normally situated and sized. The rhythm was regular and no extrasystoles were noted during several minutes of auscultation. The first and second heart sounds were normal and physiologic splitting of the second heart sound was noted. There were no murmurs, rubs, clicks, or gallops. Lungs reveal use bilateral rhonchi. No wheezes or crackles. Breath sounds equal. Saturations 93%. Abdominal exam revealed normal bowel sounds. The abdomen was soft, non-tender, and without masses, organomegaly, or appreciable enlargement of the abdominal aorta. Extremities are intact. No cyanosis clubbing or edema. Skin is without rash or lesion. Neurologic examination cannot be adequately assessed as the patient's currently sedated - Labs CBC & Chem 7: 08/30/21 04:10 08/30/21 04:10 Labs: Abnormal Lab Results - Last 24 Hours (Table) 08/29/21 08/29/21 08/29/21 Range/Units 11:30 12:09 18:17 RBC (3.80-5.40) m/uL Hgb (11.4-16.0) gm/dL Hct (34.0-46.0) % RDW (11.5-15.5) % Lymphocytes # (1.0-4.8) k/uL Eosinophils # (0-0.7) k/uL ABG pCO2 (35-45) mmHg ABG pO2 (83-108) mmHg ABG HCO3 (21-25) mmol/L ABG Total CO2 (19-24) mmol/L Chloride (98-107) mmol/L BUN (7-17) mg/dL Creatinine (0.52-1.04) mg/dL Glucose (74-99) mg/dL POC Glucose (mg/dL) 145 H 147 H (75-99) mg/dL Total Protein (6.3-8.2) g/dL Albumin (3.5-5.0) g/dL Triglycerides 262.00 H (0.00-149.00) mg/dL 08/30/21 08/30/21 08/30/21 Range/Units 00:06 04:10 04:10 RBC 3.21 L (3.80-5.40) m/uL Hgb 10.0 L (11.4-16.0) gm/dL Hct 30.6 L (34.0-46.0) % RDW 15.9 H (11.5-15.5) % Lymphocytes # 0.8 L (1.0-4.8) k/uL Eosinophils # 0.8 H (0-0.7) k/uL ABG pCO2 (35-45) mmHg ABG pO2 (83-108) mmHg ABG HCO3 (21-25) mmol/L ABG Total CO2 (19-24) mmol/L Chloride 109 H (98-107) mmol/L BUN 65 H (7-17) mg/dL Creatinine 1.29 H (0.52-1.04) mg/dL Glucose 110 H (74-99) mg/dL POC Glucose (mg/dL) 111 H (75-99) mg/dL Total Protein 5.7 L (6.3-8.2) g/dL Albumin 2.5 L (3.5-5.0) g/dL Triglycerides (0.00-149.00) mg/dL 08/30/21 08/30/21 Range/Units 05:28 05:28 RBC (3.80-5.40) m/uL Hgb (11.4-16.0) gm/dL Hct (34.0-46.0) % RDW (11.5-15.5) % Lymphocytes # (1.0-4.8) k/uL Eosinophils # (0-0.7) k/uL ABG pCO2 50 H (35-45) mmHg ABG pO2 75 L (83-108) mmHg ABG HCO3 31 H (21-25) mmol/L ABG Total CO2 32 H (19-24) mmol/L Chloride (98-107) mmol/L BUN (7-17) mg/dL Creatinine (0.52-1.04) mg/dL Glucose (74-99) mg/dL POC Glucose (mg/dL) 108 H (75-99) mg/dL Total Protein (6.3-8.2) g/dL Albumin (3.5-5.0) g/dL Triglycerides (0.00-149.00) mg/dL Microbiology - Last 24 Hours (Table) 08/29/21 12:25 Gram Stain - Preliminary Sputum Sputum Culture - Preliminary Assessment and Plan Plan: 1 Acute hypoxemic respiratory failure secondary to coronavirus associated pneumonia, status post intubation and mechanical ventilation on 08/05/2021. The patient remains in ARDS for now. The patient remains sedated on a mechanical ventilator. No major changes on the case chest x-ray. Unable to The Sedation Any Further Because of the Second with a Mechanical Ventilator and Desaturations. She Was Noted to Be in Positive Fluid Balance and the Patient Is Currently Receiving Lasix 20 Mg IV 12 Hours in an Attempt to Diurese the Patient with the Next 24-48 Hours. Otherwise, No Other Significant Changes. 2 ARDS secondary to COVID 19 related pneumonia. The patient's lungs are extremely noncompliant with elevated peak and static pressure 3 Moraxella catarrhalis in the sputum, not clear of true infection completed antibiotic therapy 4 Elevated inflammatory marker secondary to coronavirus infection. Note that inflammatory markers of been improving 5 History of essential hypertension. 6 History of hyperlipidemia. 7 History of diabetes mellitus. The patient is currently on Levemir insulin with adequate blood sugar control in addition to a sliding scale coverage. 8 History of hypothyroidism Plan: Continue ventilator support , no changes on a mechanical ventilator for today, the patient remains in full-blown ARDS and the chest x-ray remains unchanged Continue propofol, triglyceride levels of nonelevated Awaiting repeat sputum Gram stain and culture Continue Lasix 20 mg every 12 hours and the patient is diuresing adequately No need for antibiotic coverage. Chest x-ray and blood gases were noted Continue the rest of the supportive care Prognosis remains extremely poor specially with her comorbidities and the prolonged respiratory failure We'll discuss this with the family We'll continue to follow. There is a critically care evaluation that was performed and more than 30 minutes Time with Patient: Greater than 30
[2021-08-30] MEDS: DEXAMETHASONE SOD PHOSPHATE 10 MG/ML 1 ML VIAL IVP SCH (08:59)
[2021-08-30] MEDS: ENOXAPARIN 40 MG/0.4 ML SYRINGE SQ SCH (08:59)
[2021-08-30] MEDS: ASCORBIC ACID 500 MG TAB PO SCH (08:59)
[2021-08-30] MEDS: PANTOPRAZOLE 40 MG/10 ML VIAL IVP SCH (08:59)
[2021-08-30] MEDS: CHLORHEXIDINE GLUCONATE 15 ML CUP MUCOUS MEM SCH ×2 (09:00→21:20)
[2021-08-30] MEDS: CHOLECALCIFEROL 125 MCG (5000 IU) TABLET PO SCH (09:00)
[2021-08-30] MEDS: FUROSEMIDE 10 MG/ML 2 ML VIAL IV SCH ×2 (09:01→21:20)
[2021-08-30] MEDS: ZINC SULFATE 220 MG CAP PO SCH (09:01)
--- NOTE | 2021-08-30 10:43 | P.PN ---
<Maureen Horne - Last Filed: 08/30/21 10:40> Subjective Progress Note Date: 08/30/21 CHIEF COMPLAINT: COVID-19 pneumonia HISTORY OF PRESENT ILLNESS: Patient remains in the ICU intubated and on mechanical ventilation. Patient is status post PEG and trach placement. Patient has a tracheostomy cuff leak. She is able to hold her tidal volumes. Patient is tolerating tube feedings. Her tube feeds are at goal 28 mL per hour. No residual reported. Afebrile. WBC 8.1 PHYSICAL EXAM: VITAL SIGNS: Reviewed. GENERAL: Well-developed in no acute distress. HEENT: No sclera icterus. Moist buccal mucosa. Head is atraumatic, normocephalic. Tracheostomy leak ABDOMEN: Soft. Nondistended. Nontender. PEG tube site clean dry and intact NEUROLOGIC: intubated and sedated Skin: Patient has rash noted along the abdominal left flank and thighs ASSESSMENT: 1. Acute hypoxic respiratory failure secondary to COVID-19 pneumonia requiring mechanical ventilation status post tracheostomy placement 2. Severe protein calorie malnutrition status post PEG tube placement PLAN: -Continue to monitor tracheostomy leak -Continue tube feedings -Continue ICU management -Continue supportive care Physician A/C Tech note has been reviewed by physician. Signing provider agrees with the documented findings, assessment, and plan of care. Objective - Vital Signs Vital signs: Vital Signs Temp 98.4 F 08/30/21 08:00 Pulse 85 08/30/21 10:00 Resp 29 H 08/30/21 10:00 BP 115/61 08/30/21 09:00 Pulse Ox 90 L 08/30/21 10:00 Intake & Output 08/29/21 08/30/21 08/30/21 18:59 06:59 18:59 Intake Total 1083.873 991 226.282 Output Total 1785 1750 225 Balance -701.127 -799 1.282 Weight 102.2 kg 102.6 kg Intake: IV 253 299 69 Pressure Bag 0.9% Sodium 33 39 9 Chloride @ 3mL/hr Sodium Chloride 0.9% 1, 220 260 60 000 ml @ 20 mls/hr IV . Q24H [facility] Rx#:[id number] Intake, IV Titration 306.873 300 43.282 Amount fentaNYL (PF). 1,000 mcg 106.873 In Sodium Chloride 0.9% 80 ml @ 0.5 MCG/KG/HR 4. 795 mls/hr IV .[id number] [facility] Rx#:[id number] propofoL 1,000 mg In 200.000 300 43.282 Empty Bag 1 bag @ Titrate IV .Q0M [facility] Rx#: [id number] Tube Feeding 364 392 84 Other 160 30 Output: Urine 1785 1750 225 Other: Voiding Method Indwelling Catheter Indwelling Catheter Indwelling Catheter ABP, PAP, CO, CI - Last Documented Arterial Blood Pressure 135/61 - Labs CBC & Chem 7: 08/30/21 04:10 08/30/21 04:10 Labs: Abnormal Lab Results - Last 24 Hours (Table) 08/29/21 08/29/21 08/29/21 Range/Units 11:30 12:09 18:17 RBC (3.80-5.40) m/uL Hgb (11.4-16.0) gm/dL Hct (34.0-46.0) % RDW (11.5-15.5) % Lymphocytes # (1.0-4.8) k/uL Eosinophils # (0-0.7) k/uL ABG pCO2 (35-45) mmHg ABG pO2 (83-108) mmHg ABG HCO3 (21-25) mmol/L ABG Total CO2 (19-24) mmol/L Chloride (98-107) mmol/L BUN (7-17) mg/dL Creatinine (0.52-1.04) mg/dL Glucose (74-99) mg/dL POC Glucose (mg/dL) 145 H 147 H (75-99) mg/dL Total Protein (6.3-8.2) g/dL Albumin (3.5-5.0) g/dL Triglycerides 262.00 H (0.00-149.00) mg/dL 08/30/21 08/30/21 08/30/21 Range/Units 00:06 04:10 04:10 RBC 3.21 L (3.80-5.40) m/uL Hgb 10.0 L (11.4-16.0) gm/dL Hct 30.6 L (34.0-46.0) % RDW 15.9 H (11.5-15.5) % Lymphocytes # 0.8 L (1.0-4.8) k/uL Eosinophils # 0.8 H (0-0.7) k/uL ABG pCO2 (35-45) mmHg ABG pO2 (83-108) mmHg ABG HCO3 (21-25) mmol/L ABG Total CO2 (19-24) mmol/L Chloride 109 H (98-107) mmol/L BUN 65 H (7-17) mg/dL Creatinine 1.29 H (0.52-1.04) mg/dL Glucose 110 H (74-99) mg/dL POC Glucose (mg/dL) 111 H (75-99) mg/dL Total Protein 5.7 L (6.3-8.2) g/dL Albumin 2.5 L (3.5-5.0) g/dL Triglycerides (0.00-149.00) mg/dL 08/30/21 08/30/21 Range/Units 05:28 05:28 RBC (3.80-5.40) m/uL Hgb (11.4-16.0) gm/dL Hct (34.0-46.0) % RDW (11.5-15.5) % Lymphocytes # (1.0-4.8) k/uL Eosinophils # (0-0.7) k/uL ABG pCO2 50 H (35-45) mmHg ABG pO2 75 L (83-108) mmHg ABG HCO3 31 H (21-25) mmol/L ABG Total CO2 32 H (19-24) mmol/L Chloride (98-107) mmol/L BUN (7-17) mg/dL Creatinine (0.52-1.04) mg/dL Glucose (74-99) mg/dL POC Glucose (mg/dL) 108 H (75-99) mg/dL Total Protein (6.3-8.2) g/dL Albumin (3.5-5.0) g/dL Triglycerides (0.00-149.00) mg/dL Microbiology - Last 24 Hours (Table) 08/29/21 12:25 Gram Stain - Preliminary Sputum Sputum Culture - Preliminary <Patel Tejeda - Last Filed: 08/30/21 15:36> Subjective As above. Patient stable on the ventilator. Still has a cuff leak which is stable. Tolerating tube feeds. We'll see on an as-needed basis at this point. Please call if needed. Objective - Vital Signs Vital signs: Vital Signs Temp 98.2 F 08/30/21 12:00 Pulse 82 08/30/21 14:00 Resp 28 H 08/30/21 14:00 BP 115/61 08/30/21 09:00 Pulse Ox 95 08/30/21 14:00 Intake & Output 08/29/21 08/30/21 08/30/21 18:59 06:59 18:59 Intake Total 1083.873 991 560.282 Output Total 1785 1750 975 Balance -701.127 -759 -414.718 Weight 102.2 kg 102.6 kg 102.6 kg Intake: IV 253 299 161 Pressure Bag 0.9% Sodium 33 39 21 Chloride @ 3mL/hr Sodium Chloride 0.9% 1, 220 260 140 000 ml @ 20 mls/hr IV . Q24H [facility] Rx#:[id number] Intake, IV Titration 306.873 300 143.282 Amount fentaNYL (PF). 1,000 mcg 106.873 In Sodium Chloride 0.9% 80 ml @ 0.5 MCG/KG/HR 4. 795 mls/hr IV .[id number] [facility] Rx#:[id number] propofoL 1,000 mg In 200.000 300 143.282 Empty Bag 1 bag @ Titrate IV .Q0M [facility] Rx#: [id number] Tube Feeding 364 392 196 Other 160 60 Output: Urine 1785 1750 975 Other: Voiding Method Indwelling Catheter Indwelling Catheter Indwelling Catheter ABP, PAP, CO, CI - Last Documented Arterial Blood Pressure 120/59 - Labs CBC & Chem 7: 08/30/21 04:10 08/30/21 04:10 Labs: Abnormal Lab Results - Last 24 Hours (Table) 08/29/21 08/29/21 08/30/21 Range/Units 11:30 18:17 00:06 RBC (3.80-5.40) m/uL Hgb (11.4-16.0) gm/dL Hct (34.0-46.0) % RDW (11.5-15.5) % Lymphocytes # (1.0-4.8) k/uL Eosinophils # (0-0.7) k/uL ABG pCO2 (35-45) mmHg ABG pO2 (83-108) mmHg ABG HCO3 (21-25) mmol/L ABG Total CO2 (19-24) mmol/L Chloride (98-107) mmol/L BUN (7-17) mg/dL Creatinine (0.52-1.04) mg/dL Glucose (74-99) mg/dL POC Glucose (mg/dL) 147 H 111 H (75-99) mg/dL Total Protein (6.3-8.2) g/dL Albumin (3.5-5.0) g/dL Triglycerides 262.00 H (0.00-149.00) mg/dL 08/30/21 08/30/21 08/30/21 Range/Units 04:10 04:10 05:28 RBC 3.21 L (3.80-5.40) m/uL Hgb 10.0 L (11.4-16.0) gm/dL Hct 30.6 L (34.0-46.0) % RDW 15.9 H (11.5-15.5) % Lymphocytes # 0.8 L (1.0-4.8) k/uL Eosinophils # 0.8 H (0-0.7) k/uL ABG pCO2 50 H (35-45) mmHg ABG pO2 75 L (83-108) mmHg ABG HCO3 31 H (21-25) mmol/L ABG Total CO2 32 H (19-24) mmol/L Chloride 109 H (98-107) mmol/L BUN 65 H (7-17) mg/dL Creatinine 1.29 H (0.52-1.04) mg/dL Glucose 110 H (74-99) mg/dL POC Glucose (mg/dL) (75-99) mg/dL Total Protein 5.7 L (6.3-8.2) g/dL Albumin 2.5 L (3.5-5.0) g/dL Triglycerides (0.00-149.00) mg/dL 08/30/21 08/30/21 Range/Units 05:28 11:33 RBC (3.80-5.40) m/uL Hgb (11.4-16.0) gm/dL Hct (34.0-46.0) % RDW (11.5-15.5) % Lymphocytes # (1.0-4.8) k/uL Eosinophils # (0-0.7) k/uL ABG pCO2 (35-45) mmHg ABG pO2 (83-108) mmHg ABG HCO3 (21-25) mmol/L ABG Total CO2 (19-24) mmol/L Chloride (98-107) mmol/L BUN (7-17) mg/dL Creatinine (0.52-1.04) mg/dL Glucose (74-99) mg/dL POC Glucose (mg/dL) 108 H 157 H (75-99) mg/dL Total Protein (6.3-8.2) g/dL Albumin (3.5-5.0) g/dL Triglycerides (0.00-149.00) mg/dL Microbiology - Last 24 Hours (Table) 08/29/21 12:25 Gram Stain - Preliminary Sputum Sputum Culture - Preliminary Presumptive Staph aureus Assessment and Plan (1) Acute respiratory failure with hypoxia Current Visit: Yes Status: Acute Code(s): J96.01 - ACUTE RESPIRATORY FAILURE WITH HYPOXIA SNOMED Code(s): 97692693
[2021-08-30 11:34] LABS: Glucose,Whole Blood 157 mg/dL (75-99)
[2021-08-30] MEDS: INSULIN DETEMIR (LEVEMIR) 100 UNIT/ML SYR SQ SCH ×2 (13:36→20:11)
--- NOTE | 2021-08-30 14:10 | P.PN ---
Subjective This is a 76-year-old white female who not been seen in our office for over a year. He came emergency room with cough congestion dyspnea and weakness and fatigue for several weeks. She tested positive for cover a week ago with a home test per the emergency room physician. Per the ER physician she not been vaccinated for current receive any Dulzura and treatment. She indicates shortness of breath had gotten worse. She denied any fevers severe headache chest pain or pressure. She was seen emergency room. She was on a BiPAP at this time in the intensive care unit.. Her conversation is limited by this. 08/06/2021: Patient is now intubated and sedated/paralyzed. This was done approximately 8 PM last night. She has COVID-19 pneumonia. She remains afebrile. Pulse is somewhat bradycardic over the past 18 hours. Respiratory rate is mechanically ventilated. Blood pressure is stable to this time. Labs show leukocytosis with a WBC count of 15.4 hemoglobin was 12 3 platelets are 113. There is an absolute neutrophilia at 14. Blood gases show pH 7.41 with a P CO2 of 40 and a PO2 of 78. Chemistries essentially normal slightly elevated BUN 21 creatinine 0.78. Glucoses are better controlled. She was placed on insulin drip yesterday. Cultures no growth after 24 hours and the blood, sputum culture pending. Chest x-ray shows bilateral multifocal confluent opacities consistent COVID-19 infection. Improved aeration suggesting improving. He has orders for Ventolin HFA inhaler, remains on vitamin C vitamin D, along with the dexamethasone. She is receiving Baricitnib all for Covid. She is paralyzed and Nimbex and remains on propofol for sedation. Staff indicated tube feeds may start soon. 08/07/2021:This is a 76-year-old female who presented to emergency room with cough, congestion, dyspnea and weakness and fatigue over several weeks. Approximately week ago patient took a home Covid test which indicated that she was positive. She has not received Covid vaccine or treatment for the positive Covid test. When symptoms worsened she decided to present to the ER for evaluation and treatment. She was initially placed on BiPAP in the intensive care unit and subsequently been intubated. She is currently paralyzed with c isatracurium, sedated with propofol and utilizing Toradol IV push for pain management. Currently mechanically ventilated on 80% FiO2. Patient is afebrile 96.9, respiratory rate of 26, blood pressure is stable at 109/51, maintain oxygen saturation of 90% and entitle CO2 of 28. Most recent set of vital signs WC count of 15.5, hematocrit of 35.6, hemoglobin 12.0, platelet count 119. Chemistry panel reveals a sodium 138, potassium 3.8, BUN of 19, creatinine 0.72, GFR 83, AST of 99, ELT 106, alk phos 131, LDH 847. TSH of 8.37. T4 0.5, pro- calcitonin 0.34 08/08/2021 remains mechanical ventilator-dependent, FiO2 decreased to 65%, PEEP remains at 20. Continues on Nimbex and diprovan drips. Chest x-ray reported patchy bilateral infiltrate with diffuse interstitial pattern, tiny right-sided pleural effusion, received Lasix. Maintained on Rocephin (Moraxella catarrhalis in the sputum) , Covid cocktail with Baricitinib discontinued. Blood sugars elevated. Afebrile, WBC 13.3. Pro-calcitonin 0.34. 08/09/2021 continues on FiO2 65% with PEEP of 20, Nimbex and diprovan drips. Chest x-ray reporting persistent patchy bilateral infiltrate with diffuse interstitial pattern. Received additional Lasix today Blood sugars elevated, improving, A1c 8.4. Afebrile, WBC 14.3. D-dimer 0.77, ferritin increased to 2512, LDH decreased to 606, CRP increased to 21.2. LFTs decreasing with the exception of alkaline phosphatase, increased to 171. ProBNP 453. Receiving tube feeds to call, tolerating well with minimal to no residuals, stooling. 08/10/2021 remains vent dependent, FiO2 60%/+18 of PEEP. Maintained on Nimbex and diprovan drips. Chest x-ray noted, unchanged. Currently afebrile, T-max 99.1, WBC trending down, 12.7. BUN 24, and 0.74. Repeat pro-calcitonin 0.31. Additional Levemir added to med regimen yesterday, Blood sugars controlled. Received Lasix IV push yesterday again, diuresed well with 24-hour I&O reflecting a negative fluid balance. Sodium within normal limits, 142. 08/11/2021 yesterday patient of placed on Nimbex holiday, during the night unable to tolerate became asynchronous with the ventNimbex resumed. Diprovan drip continues. Maintained on FiO2 65% with PEEP decreased to 17. Maintained on Rocephin ,Covid cocktail. Chest x-ray reporting stable diffuse bilateral infiltrate. Inflammatory markers decreasing.Tolerating tube feeds minimal to no residual. Levemir increased yesterday with blood sugars controlled. Afebrile. 08/12/2021 patient was given another paralytic holiday yesterday and continues off of Nimbex. During the night, difficulty maintaining O2 sats, cuff leak discovered, required higher FiO2. Maintained on diprovan. Currently FIO2 90%, PEEP of 16. Chest x-ray reporting bilateral moderate pulmonary edema, possibly worsening, antibiotics adjusted, now on cefepime. Maintained on Covid cocktail. Blood sugars controlled. Renal function stable. 08/15/2021 remains vent dependent, FiO2 75%/+16 of PEEP. Maintained on diprovan and fentanyl drips. Currently off paralytics. Sedation holiday attempted yesterday with minimal improvement of mental status, no response to any stimuli reported. Chest x-ray reporting persistent bilateral airspace disease. Continues on cefepime. Tolerating tube feeds at goal, with minimal to no residuals, blood sugars controlled. Inflammatory markers mildly increased. 08/16/2021 remains vent dependent, FiO2 65%/+16 of PEEP. Chest x-ray reporting diffuse interstitial and alveolar infiltrates. Maintained on diprovan and fentanyl drips. Optoelectronic Technician currently discussing treatment of trach and peg with family. T-max 99.1, WBC 15.7. D-dimer, CRP decreased, LDH increased. 08/17/2021 vent dependent, FiO2 50%/+16 of PEEP. Chest x-ray reporting diffuse interstitial and alveolar infiltrates. Tube feeds and lovenox on hold. Maintained on IV fluid hydration D5/45. Scheduled for trach and peg today. T-max 99.7, WBC 13.5. Creatinine increased up to 1.15. 08/18/2021 Remains vent dependent, FiO2 70+16 of PEEP.Maintained on diprovan, fentanyl. PEG tube attempted yesterday, surgeon unable to pass scope. Patient is scheduled for tracheostomy and potential PEG tube placement today. 08/19/2021 Tracheostomy placed yesterday. Cuff leak present, TV increased. Maintained on 90% FiO2/+16 of PEEP. Chest x-ray reporting bilateral infiltrates.Continues on Nimbex, fentanyl and diprovan. PICC line placed. Tolerating tube feeds via OG of vital AF at goal of 31ml per hour. Sodium normalized, renal function stable. Blood sugars better controlled. 08/20/2021: Patient remains afebrile. She continues to be mechanically ventilated through her tracheostomy tube. Blood pressure stable. She remains on fentanyl, propofol, and cefepime IVs along with the oral tube feeds. Curr ently patient's on an FiO2 of 75%. PEEP is 16. Labs show WBC count 9.5. Blood gases today show pH 7.46 with PCO2 45 and a PO2 of 54. Glucose over the past 24 hours is been between 1:30 and 117. Chest x-ray she shows correlate for pneumonia and ARDS. 08/21/2021: Patient remains sedated with tracheostomy tube. A PEG tube placement is planned for tomorrow. She is on oral gastric feeding tube at goal at this time. She is afebrile. Vitals are stable. She remains mechanically ventilated. She currently remains on fentanyl and propofol, the doses have been reduced. Staff report she'll open her eyes but is not following commands at this time. She is a Sosa catheter to gravity. There's been no bowel movement. Multiple days. She remains on the COVID-19 cocktail including Decadron, L ovenox, Protonix, vitamin C. She remains on cefepime antibiotics for possible Moraxella pneumonia. 08/29/2021: Patient remains sedated with tracheostomy tube. PEG tube placement done 08/22/2021. She is afebrile. She remains mechanically ventilated. FIO2 is 60%. PEEP 20. She currently remains on Fentanyl and propofol, Staff report she'll open her eyes but is not following commands at this time. She is a Sosa catheter to gravity. . She remains on the COVID-19 cocktail including Decadron, Lovenox, Protonix, vitamin C. she is NOT improving. 08/30/2021:She is afebrile. She remains mechanically ventilated. the patient remains intubated on a mechanical ventilator. Tracheostomy placed on 08/24/2021 .Peg Tube feeds continue. She remains sedated and she is on propofol Fentanyl was turned off yesterday. The patient is currently on no paralytics. FiO2 is currently at 60% with a PEEP of 20. she is on no antibiotics currently. Blood gas that shows a pH of 7.4 with a pCO2 of 50 and pO2 of 75. The white cell count today is at 8.1 with a hemoglobin of 10 and a platelet count of 160. Electrolytes, show the creatinine is 1.29 with a BUN of 65, She was started on diuretics of Lasix 40 mg IV every 12 hours. The patient is currently on Decadron which is running at 6 mg IV every 24 hours. The patient is also on Levemir insulin at a dose of 30 units in the morning and 10 units in the evening along with a slight scale coverage. IV fluids are currently at KVO. Her husand was at bedside and I was able to speak to him as t othe half-way outlook for Malinda. The fact we have see NO improvement in her overall condition is troubling and a poor prognostic indicator. he is now arare of this and of her poor outcome likelyhood. Objective - Vital Signs Vital signs: Vital Signs Temp 98.4 F 08/30/21 08:00 Pulse 80 08/30/21 09:00 Resp 34 H 08/30/21 09:00 BP 115/61 08/30/21 09:00 Pulse Ox 90 L 08/30/21 09:00 Intake & Output 08/29/21 08/30/21 08/30/21 18:59 06:59 18:59 Intake Total 1083.873 991 175.282 Output Total 1785 1750 150 Balance -701.127 -759 25.282 Weight 102.2 kg 102.6 kg Intake: IV 253 299 46 Pressure Bag 0.9% Sodium 33 39 6 Chloride @ 3mL/hr Sodium Chloride 0.9% 1, 220 260 40 000 ml @ 20 mls/hr IV . Q24H [facility] Rx#:[id number] Intake, IV Titration 306.873 300 43.282 Amount fentaNYL (PF). 1,000 mcg 106.873 In Sodium Chloride 0.9% 80 ml @ 0.5 MCG/KG/HR 4. 795 mls/hr IV .[id number] [facility] Rx#:[id number] propofoL 1,000 mg In 200.000 300 43.282 Empty Bag 1 bag @ Titrate IV .Q0M [facility] Rx#: [id number] Tube Feeding 364 392 56 Other 160 30 Output: Urine 1785 1750 150 Other: Voiding Method Indwelling Catheter Indwelling Catheter Indwelling Catheter ABP, PAP, CO, CI - Last Documented Arterial Blood Pressure 158/67 - Exam GENERAL: elderly female currently with tracheostomy being mechanically ventilated and sedated. NECK: Tracheostomy tube in place. Oral feeding tube in place. LUNGS: Breath sounds coarse bilaterally and mechanically ventilated HEART: Regular rate and rhythm without murmurs, rubs or gallops.S1S2 Normal ABDOMEN: Soft, nontender, normoactive bowel sounds. No guarding, no rebound. No masses appreciated. PEG in place LUQ EXTREMITIES:no pitting or edema. No clubbing or cyanosis. NEUROLOGICAL: Sedated SKIN: Warm, Dry, normal turgor, no rashes or lesions noted. - Labs CBC & Chem 7: 08/30/21 04:10 08/30/21 04:10 Labs: Abnormal Lab Results - Last 24 Hours (Table) 08/29/21 08/29/21 08/29/21 Range/Units 11:30 12:09 18:17 RBC (3.80-5.40) m/uL Hgb (11.4-16.0) gm/dL Hct (34.0-46.0) % RDW (11.5-15.5) % Lymphocytes # (1.0-4.8) k/uL Eosinophils # (0-0.7) k/uL ABG pCO2 (35-45) mmHg ABG pO2 (83-108) mmHg ABG HCO3 (21-25) mmol/L ABG Total CO2 (19-24) mmol/L Chloride (98-107) mmol/L BUN (7-17) mg/dL Creatinine (0.52-1.04) mg/dL Glucose (74-99) mg/dL POC Glucose (mg/dL) 145 H 147 H (75-99) mg/dL Total Protein (6.3-8.2) g/dL Albumin (3.5-5.0) g/dL Triglycerides 262.00 H (0.00-149.00) mg/dL 08/30/21 08/30/21 08/30/21 Range/Units 00:06 04:10 04:10 RBC 3.21 L (3.80-5.40) m/uL Hgb 10.0 L (11.4-16.0) gm/dL Hct 30.6 L (34.0-46.0) % RDW 15.9 H (11.5-15.5) % Lymphocytes # 0.8 L (1.0-4.8) k/uL Eosinophils # 0.8 H (0-0.7) k/uL ABG pCO2 (35-45) mmHg ABG pO2 (83-108) mmHg ABG HCO3 (21-25) mmol/L ABG Total CO2 (19-24) mmol/L Chloride 109 H (98-107) mmol/L BUN 65 H (7-17) mg/dL Creatinine 1.29 H (0.52-1.04) mg/dL Glucose 110 H (74-99) mg/dL POC Glucose (mg/dL) 111 H (75-99) mg/dL Total Protein 5.7 L (6.3-8.2) g/dL Albumin 2.5 L (3.5-5.0) g/dL Triglycerides (0.00-149.00) mg/dL 08/30/21 08/30/21 Range/Units 05:28 05:28 RBC (3.80-5.40) m/uL Hgb (11.4-16.0) gm/dL Hct (34.0-46.0) % RDW (11.5-15.5) % Lymphocytes # (1.0-4.8) k/uL Eosinophils # (0-0.7) k/uL ABG pCO2 50 H (35-45) mmHg ABG pO2 75 L (83-108) mmHg ABG HCO3 31 H (21-25) mmol/L ABG Total CO2 32 H (19-24) mmol/L Chloride (98-107) mmol/L BUN (7-17) mg/dL Creatinine (0.52-1.04) mg/dL Glucose (74-99) mg/dL POC Glucose (mg/dL) 108 H (75-99) mg/dL Total Protein (6.3-8.2) g/dL Albumin (3.5-5.0) g/dL Triglycerides (0.00-149.00) mg/dL Microbiology - Last 24 Hours (Table) 08/29/21 12:25 Gram Stain - Preliminary Sputum Sputum Culture - Preliminary Assessment and Plan (1) Acute respiratory failure with hypoxia Current Visit: Yes Status: Acute Code(s): J96.01 - ACUTE RESPIRATORY FAILURE WITH HYPOXIA SNOMED Code(s): 47720391 (2) Pneumonia due to COVID-19 virus Current Visit: Yes Status: Acute Code(s): U07.1 - COVID-19; J12.82 - PNEUMONIA DUE TO CORONAVIRUS DISEASE 2019 SNOMED Code(s): 901207898854791852 (3) Hypoxia Current Visit: Yes Status: Acute Code(s): R09.02 - HYPOXEMIA SNOMED Code(s): 889753685 (4) Hypothyroidism, unspecified Current Visit: Yes Status: Acute Code(s): E03.9 - HYPOTHYROIDISM, UNSPECIFIED SNOMED Code(s): 69816903 (5) Mixed hyperlipidemia Current Visit: Yes Status: Acute Code(s): E78.2 - MIXED HYPERLIPIDEMIA SNOMED Code(s): 239429561 (6) Type 2 diabetes mellitus without complications Current Visit: Yes Status: Acute Code(s): E11.9 - TYPE 2 DIABETES MELLITUS WITHOUT COMPLICATIONS SNOMED Code(s): 007906657 Plan: I will defer to critical care/master yacht while 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 She'll remain on her current medications. She'll continue on the current covid protocol, Continue dexamethasone, Lovenox, pantoprazole, levothyroxine, insulin scale, Levemir daily at bedtime PEG tube with feeds at goal She'll be reevaluated next 24 hours
[2021-08-30 17:28] LABS: Glucose,Whole Blood 186 mg/dL (75-99)
[2021-08-30 19:55] LABS: Glucose,Whole Blood 142 mg/dL (75-99)
[2021-08-30 23:59] LABS: Glucose,Whole Blood 105 mg/dL (75-99)
[2021-08-31] MEDS: INSULIN ASPART (NovoLOG) 100 UNIT/ML VIAL SQ SCH ×5 (00:33→23:38)
[2021-08-31] MEDS: ALBUTEROL HFA INHALER INHALATION SCH ×6 (03:41→23:10)
[2021-08-31 04:29] LABS: Anisocytosis Slight; Basophils % (A) 0 %; Eosinophils # (A) 0.9 k/uL (0-0.7); Eosinophils % (A) 12 %; HCT 31.9 % (34.0-46.0); HGB 10.3 gm/dL (11.4-16.0); Hypochromasia Moderate; Lymphocytes # (A) 0.8 k/uL (1.0-4.8); Lymphocytes % (A) 11 %; MCHC 32.4 g/dL (31.0-37.0); MCV 95.5 fL (80.0-100.0); Mean Platelet Volume 8.8; Monocytes # (A) 0.6 k/uL (0-1.0); Monocytes % (A) 8 %; Neutrophils % (A) 66 %; Platelet Count 161 k/uL (150-450); Poikilocytosis Slight; RBC 3.34 m/uL (3.80-5.40); RDW 16.1 % (11.5-15.5); WBC 7.6 k/uL (3.8-10.6)
[2021-08-31 04:43] LABS: Calcium 9.5 mg/dL (8.4-10.2); Potassium 3.9 mmol/L (3.5-5.1)
[2021-08-31 05:09] LABS: Glucose,Whole Blood 129 mg/dL (75-99)
[2021-08-31] MEDS: LEVOTHYROXINE 100 MCG TAB OG-TUBE SCH (05:15)
[2021-08-31] MEDS: INSULIN DETEMIR (LEVEMIR) 100 UNIT/ML SYR SQ SCH ×2 (05:17→21:41)
[2021-08-31 06:01] LABS: ABG HCO3 31 mmol/L (21-25); ABG Oxygen Saturation 93.4 % (94-97); ABG PCO2 54 mmHg (35-45); ABG PH 7.37 (7.35-7.45); ABG PO2 68 mmHg (83-108); Allen Test Performed? Yes
[2021-08-31] MEDS ORDERED: POTASSIUM BICARB-CITRIC ACID 25 MEQ TABLET.EFF PO SCH (08:00)
--- NOTE | 2021-08-31 08:05 | P.PN ---
Subjective Progress Note Date: 08/31/21 This is a 76-year-old female patient who presented to us on 08/04/2021 for shortness of breath and hypoxemia. The patient tested positive COVID-19 on 07/30/2021. Noted the patient was feeling sick prior to that. She was initially on a BiPAP for support as the patient was quite hypoxic. Her comorbid conditions included diabetes mellitus, hypertension, hypothyroidism and hyperlipidemia. Chest x-ray also showed elevation of the right hemidiaphragm along with diffuse bilateral airspace disease consistent with COVID-19 related pneumonia. Within a few days of admission, the patient decompensated and the patient to be intubated and placed on mechanical ventilator. The patient was intubated on 08/05/2021 and the patient remains intubated since then. On today's evaluation of 08/31/2021, I'm seeing the patient for a follow-up. Remains in ARDS follows COVID 19 related pneumonia. The patient remains sedated on propofol which is running at 25 mg/kg/m. She is off paralytics and she was also taken off fentanyl. He remains essentially the same ventilator settings , she remains on assist control mode at the rate of 32, tidal volumes of 400, FiO2 is currently at 60% with a PEEP of 20. Peak airway pressures on a mechanical ventilator is 40 on today's evaluation. The static pressure is 38, and the patient continues to have some leak around the tracheostomy tube and the leak is estimated to be around 50 mL based on returned tidal volume. The chest x-ray is showing stable bilateral lower lobe pulmonary infiltrates and the tracheostomy tube is in a good location. The last chest x-ray was from 08/29/2021. Note that the patient did have Moraxella catarrhalis and her sputum earlier and this was treated. The patient continues to be on diuretics and the patient is receiving Lasix 40 mg IV every 12 hours and the patient has been negative fluid balance of at least 1.1 L over the past 24 hours. Weight is currently down to 100 kg which is 5 kg last or the past few days. Meanwhile, the rest of the labs from today shows a blood gases of pH of 7.37 with a pCO2 of 54 and pO2 of 68 and this was on FiO2 of 50%. White cell count 7.6 with a hemoglobin of 10.3, the creatinine is at 1.34 with a mean of 66 and this has been essentially stable, serum bicarb is slightly higher why the patient is being diuresis and the bicarb currently is at 32 with a sodium level of 143. She remains on propofol and triglyceride level was at 262. Liver function tests were normal from yesterday. Her most recent pro-calcitonin level was from 08/12/2021 and has not been checked since. On a separate note, the repeat a sputum sample is showing staph aureus. She remains on Levemir insulin 10 units at bedtime and 30 units in the morning along with a sliding scale coverage. She is on Lovenox 40 mg subcu for DVT prophylaxis. IV fluids are currently at KVO. Enterofeeding is in the form of vitamin AF at the rate of 28 mL an hour which is currently at goal. Objective - Vital Signs Vital signs: Vital Signs Temp 97.8 F 08/31/21 04:00 Pulse 85 08/31/21 07:00 Resp 32 H 08/31/21 07:00 BP 134/51 08/31/21 07:00 Pulse Ox 91 L 08/31/21 07:00 Intake & Output 08/30/21 08/31/21 08/31/21 18:59 06:59 18:59 Intake Total 766.282 902.000 51 Output Total 1375 1455 75 Balance -608.718 -553.000 -24 Weight 102.6 kg 100.2 kg Intake: IV 253 276 23 Pressure Bag 0.9% Sodium 33 36 3 Chloride @ 3mL/hr Sodium Chloride 0.9% 1, 220 240 20 000 ml @ 20 mls/hr IV . Q24H [facility] Rx#:[id number] Intake, IV Titration 143.282 200.000 Amount propofoL 1,000 mg In 143.282 200.000 Empty Bag 1 bag @ Titrate IV .Q0M [facility] Rx#: [id number] Tube Feeding 280 336 28 Other 90 90 Output: Urine 1375 1455 75 Other: Voiding Method Indwelling Catheter Indwelling Catheter ABP, PAP, CO, CI - Last Documented Arterial Blood Pressure 107/50 - Exam Gen. appearance, No acute distress, sedated , with an orally placed endotracheal tube and NG tube. HEENT examination is grossly unremarkable. Neck supple. Full range of motion. No adenopathy thyromegaly or neck vein distention. Cardiac exam revealed the PMI to be normally situated and sized. The rhythm was regular and no extrasystoles were noted during several minutes of auscultation. The first and second heart sounds were normal and physiologic splitting of the second heart sound was noted. There were no murmurs, rubs, clicks, or gallops. Lungs reveal use bilateral rhonchi. No wheezes or crackles. Breath sounds equa l. Saturations 93%. Abdominal exam revealed normal bowel sounds. The abdomen was soft, non-tender, and without masses, organomegaly, or appreciable enlargement of the abdominal aorta. Extremities are intact. No cyanosis clubbing or edema. Skin is without rash or lesion. Neurologic examination cannot be adequately assessed as the patient's currently sedated - Labs CBC & Chem 7: 08/31/21 03:35 08/31/21 03:35 Labs: Abnormal Lab Results - Last 24 Hours (Table) 08/30/21 08/30/21 08/30/21 Range/Units 11:33 17:25 19:54 RBC (3.80-5.40) m/uL Hgb (11.4-16.0) gm/dL Hct (34.0-46.0) % RDW (11.5-15.5) % Lymphocytes # (1.0-4.8) k/uL Eosinophils # (0-0.7) k/uL ABG pCO2 (35-45) mmHg ABG pO2 (83-108) mmHg ABG HCO3 (21-25) mmol/L ABG O2 Saturation (94-97) % Carbon Dioxide (22-30) mmol/L BUN (7-17) mg/dL Creatinine (0.52-1.04) mg/dL Glucose (74-99) mg/dL POC Glucose (mg/dL) 157 H 186 H 142 H (75-99) mg/dL 08/30/21 08/31/21 08/31/21 Range/Units 23:57 03:35 03:35 RBC 3.34 L (3.80-5.40) m/uL Hgb 10.3 L (11.4-16.0) gm/dL Hct 31.9 L (34.0-46.0) % RDW 16.1 H (11.5-15.5) % Lymphocytes # 0.8 L (1.0-4.8) k/uL Eosinophils # 0.9 H (0-0.7) k/uL ABG pCO2 (35-45) mmHg ABG pO2 (83-108) mmHg ABG HCO3 (21-25) mmol/L ABG O2 Saturation (94-97) % Carbon Dioxide 32 H (22-30) mmol/L BUN 66 H (7-17) mg/dL Creatinine 1.34 H (0.52-1.04) mg/dL Glucose 134 H (74-99) mg/dL POC Glucose (mg/dL) 105 H (75-99) mg/dL 08/31/21 08/31/21 Range/Units 05:08 05:50 RBC (3.80-5.40) m/uL Hgb (11.4-16.0) gm/dL Hct (34.0-46.0) % RDW (11.5-15.5) % Lymphocytes # (1.0-4.8) k/uL Eosinophils # (0-0.7) k/uL ABG pCO2 54 H (35-45) mmHg ABG pO2 68 L (83-108) mmHg ABG HCO3 31 H (21-25) mmol/L ABG O2 Saturation 93.4 L (94-97) % Carbon Dioxide (22-30) mmol/L BUN (7-17) mg/dL Creatinine (0.52-1.04) mg/dL Glucose (74-99) mg/dL POC Glucose (mg/dL) 129 H (75-99) mg/dL Microbiology - Last 24 Hours (Table) 08/29/21 12:25 Gram Stain - Preliminary Sputum Sputum Culture - Preliminary Presumptive Staph aureus Assessment and Plan Plan: 1 Acute hypoxemic respiratory failure secondary to coronavirus associated pneumonia, status post intubation and mechanical ventilation on 08/05/2021. The patient remains in ARDS for now. The patient remains sedated on a mechanical ventilator. The patient is in full-blown ARDS. Peak and static pressures remain elevated. On a separate note, there is a presumptive staph in her sputum and will be monitored and treated accordingly. I'm going to put the proton stone in level. Note that the patient is afebrile and the patient's hemodynamics is stable and the patient does not have any significant leukocytosis or respiratory secretions. As such, she will be monitored. She is currently off paralytics. She is also on low-dose propofol and she is off fentanyl. Neuro status will be monitored. There are some limited amount of leak around the tracheostomy tube stoma which has not affected our oxygenation. 2 ARDS secondary to COVID 19 related pneumonia. The patient's lungs are extreme ly noncompliant with elevated peak and static pressure 3 Moraxella catarrhalis in the sputum, not clear of true infection completed antibiotic therapy, most recent sputum analysis showing staph aureus and this will be monitored. 4 Elevated inflammatory marker secondary to coronavirus infection. Note that inflammatory markers of been improving 5 History of essential hypertension. 6 History of hyperlipidemia. 7 History of diabetes mellitus. The patient is currently on Levemir insulin with adequate blood sugar control in addition to a sliding scale coverage. 8 History of hypothyroidism Plan: Repeat chest x-ray today Check a pro-calcitonin level in addition to inflammatory markers, no need for antibiotic coverage at this point in time Continue ventilator support , no changes on a mechanical ventilator for today, the patient remains in full-blown ARDS Continue propofol, triglyceride levels of nonelevated, weaned off and assess mental status Continue Lasix 20 mg every 12 hours and the patient is diuresing adequately, the patient is losing weight and the patient has been negative fluid balance No need for antibiotic coverage. Chest x-ray and blood gases were noted Continue the rest of the supportive care Prognosis remains extremely poor specially with her comorbidities and the prolonged respiratory failure We'll continue to follow. There is a critically care evaluation that was performed and more than 30 minutes Time with Patient: Greater than 30
[2021-08-31] MEDS: SODIUM CHLORIDE 0.9% 1,000 ML IV SCH (09:19)
--- NOTE | 2021-08-31 09:32 | XR ---
EXAMINATION TYPE: XR chest 1V portable DATE OF EXAM: 08/31/2021 COMPARISON: Chest x-ray 08/29/2021 HISTORY: Covid pneumonia TECHNIQUE: Single frontal view of the chest is obtained. FINDINGS: Bilateral airspace disease is present. Tracheostomy tube is overlying the tracheal air col umn. No evident pneumothorax or pleural effusion. Cardiac mediastinal silhouette is likely stable. Le ft-sided PICC line is in place, distal tip is overlying the right atrium. There are overlying artifac ts. IMPRESSION: Correlate for pneumonia, ARDS, pulmonary edema.
[2021-08-31] MEDS: DEXAMETHASONE SOD PHOSPHATE 10 MG/ML 1 ML VIAL IVP SCH (09:42)
[2021-08-31] MEDS: CHLORHEXIDINE GLUCONATE 15 ML CUP MUCOUS MEM SCH ×2 (09:42→21:42)
[2021-08-31] MEDS: CHOLECALCIFEROL 125 MCG (5000 IU) TABLET PO SCH (09:42)
[2021-08-31] MEDS: ASCORBIC ACID 500 MG TAB PO SCH (09:42)
[2021-08-31] MEDS: FUROSEMIDE 10 MG/ML 2 ML VIAL IV SCH ×2 (09:42→21:42)
[2021-08-31] MEDS: PANTOPRAZOLE 40 MG/10 ML VIAL IVP SCH (09:43)
[2021-08-31] MEDS: ENOXAPARIN 40 MG/0.4 ML SYRINGE SQ SCH (09:43)
[2021-08-31] MEDS: ZINC SULFATE 220 MG CAP PO SCH (09:43)
[2021-08-31 11:54] LABS: Glucose,Whole Blood 173 mg/dL (75-99)
--- NOTE | 2021-08-31 14:36 | P.PN ---
Subjective This is a 76-year-old white female who not been seen in our office for over a year. He came emergency room with cough congestion dyspnea and weakness and fatigue for several weeks. She tested positive for cover a week ago with a home test per the emergency room physician. Per the ER physician she not been vaccinated for current receive any [place] and treatment. She indicates shortness of breath had gotten worse. She denied any fevers severe headache chest pain or pressure. She was seen emergency room. She was on a BiPAP at this time in the intensive care unit.. Her conversation is limited by this. 08/06/2021: Patient is now intubated and sedated/paralyzed. This was done approximately 8 PM last night. She has COVID-19 pneumonia. She remains afebrile. Pulse is somewhat bradycardic over the past 18 hours. Respiratory rate is mechanically ventilated. Blood pressure is stable to this time. Labs show leukocytosis with a WBC count of 15.4 hemoglobin was 12 3 platelets are 113. There is an absolute neutrophilia at 14. Blood gases show pH 7.41 with a P CO2 of 40 and a PO2 of 78. Chemistries essentially normal slightly elevated BUN 21 creatinine 0.78. Glucoses are better controlled. She was placed on insulin drip yesterday. Cultures no growth after 24 hours and the blood, sputum culture pending. Chest x-ray shows bilateral multifocal confluent opacities consistent COVID-19 infection. Improved aeration suggesting improving. He has orders for Ventolin HFA inhaler, remains on vitamin C vitamin D, along with the dexamethasone. She is receiving Baricitnib all for Covid. She is paralyzed and Nimbex and remains on propofol for sedation. Staff indicated tube feeds may start soon. 08/07/2021:This is a 76-year-old female who presented to emergency room with cough, congestion, dyspnea and weakness and fatigue over several weeks. Approximately week ago patient took a home Covid test which indicated that she was positive. She has not received Covid vaccine or treatment for the positive Covid test. When symptoms worsened she decided to present to the ER for evaluation and treatment. She was initially placed on BiPAP in the intensive care unit and subsequently been intubated. She is currently paralyzed with c isatracurium, sedated with propofol and utilizing Toradol IV push for pain management. Currently mechanically ventilated on 80% FiO2. Patient is afebrile 96.9, respiratory rate of 26, blood pressure is stable at 109/51, maintain oxygen saturation of 90% and entitle CO2 of 28. Most recent set of vital signs WC count of 15.5, hematocrit of 35.6, hemoglobin 12.0, platelet count 119. Chemistry panel reveals a sodium 138, potassium 3.8, BUN of 19, creatinine 0.72, GFR 83, AST of 99, ELT 106, alk phos 131, LDH 847. TSH of 8.37. T4 0.5, pro- calcitonin 0.34 08/08/2021 remains mechanical ventilator-dependent, FiO2 decreased to 65%, PEEP remains at 20. Continues on Nimbex and diprovan drips. Chest x-ray reported patchy bilateral infiltrate with diffuse interstitial pattern, tiny right-sided pleural effusion, received Lasix. Maintained on Rocephin (Moraxella catarrhalis in the sputum) , Covid cocktail with Baricitinib discontinued. Blood sugars elevated. Afebrile, WBC 13.3. Pro-calcitonin 0.34. 08/09/2021 continues on FiO2 65% with PEEP of 20, Nimbex and diprovan drips. Chest x-ray reporting persistent patchy bilateral infiltrate with diffuse interstitial pattern. Received additional Lasix today Blood sugars elevated, improving, A1c 8.4. Afebrile, WBC 14.3. D-dimer 0.77, ferritin increased to 2512, LDH decreased to 606, CRP increased to 21.2. LFTs decreasing with the exception of alkaline phosphatase, increased to 171. ProBNP 453. Receiving tube feeds to call, tolerating well with minimal to no residuals, stooling. 08/10/2021 remains vent dependent, FiO2 60%/+18 of PEEP. Maintained on Nimbex and diprovan drips. Chest x-ray noted, unchanged. Currently afebrile, T-max 99.1, WBC trending down, 12.7. BUN 24, and 0.74. Repeat pro-calcitonin 0.31. Additional Levemir added to med regimen yesterday, Blood sugars controlled. Received Lasix IV push yesterday again, diuresed well with 24-hour I&O reflecting a negative fluid balance. Sodium within normal limits, 142. 08/11/2021 yesterday patient of placed on Nimbex holiday, during the night unable to tolerate became asynchronous with the ventNimbex resumed. Diprovan drip continues. Maintained on FiO2 65% with PEEP decreased to 17. Maintained on Rocephin ,Covid cocktail. Chest x-ray reporting stable diffuse bilateral infiltrate. Inflammatory markers decreasing.Tolerating tube feeds minimal to no residual. Levemir increased yesterday with blood sugars controlled. Afebrile. 08/12/2021 patient was given another paralytic holiday yesterday and continues off of Nimbex. During the night, difficulty maintaining O2 sats, cuff leak discovered, required higher FiO2. Maintained on diprovan. Currently FIO2 90%, PEEP of 16. Chest x-ray reporting bilateral moderate pulmonary edema, possibly worsening, antibiotics adjusted, now on cefepime. Maintained on Covid cocktail. Blood sugars controlled. Renal function stable. 08/15/2021 remains vent dependent, FiO2 75%/+16 of PEEP. Maintained on diprovan and fentanyl drips. Currently off paralytics. Sedation holiday attempted yesterday with minimal improvement of mental status, no response to any stimuli reported. Chest x-ray reporting persistent bilateral airspace disease. Continues on cefepime. Tolerating tube feeds at goal, with minimal to no residuals, blood sugars controlled. Inflammatory markers mildly increased. 08/16/2021 remains vent dependent, FiO2 65%/+16 of PEEP. Chest x-ray reporting diffuse interstitial and alveolar infiltrates. Maintained on diprovan and fentanyl drips. Imaging Analyst currently discussing treatment of trach and peg with family. T-max 99.1, WBC 15.7. D-dimer, CRP decreased, LDH increased. 08/17/2021 vent dependent, FiO2 50%/+16 of PEEP. Chest x-ray reporting diffuse interstitial and alveolar infiltrates. Tube feeds and lovenox on hold. Maintained on IV fluid hydration D5/45. Scheduled for trach and peg today. T-max 99.7, WBC 13.5. Creatinine increased up to 1.15. 08/18/2021 Remains vent dependent, FiO2 70+16 of PEEP.Maintained on diprovan, fentanyl. PEG tube attempted yesterday, surgeon unable to pass scope. Patient is scheduled for tracheostomy and potential PEG tube placement today. 08/19/2021 Tracheostomy placed yesterday. Cuff leak present, TV increased. Maintained on 90% FiO2/+16 of PEEP. Chest x-ray reporting bilateral infiltrates.Continues on Nimbex, fentanyl and diprovan. PICC line placed. Tolerating tube feeds via OG of vital AF at goal of 31ml per hour. Sodium normalized, renal function stable. Blood sugars better controlled. 08/20/2021: Patient remains afebrile. She continues to be mechanically ventilated through her tracheostomy tube. Blood pressure stable. She remains on fentanyl, propofol, and cefepime IVs along with the oral tube feeds. Curr ently patient's on an FiO2 of 75%. PEEP is 16. Labs show WBC count 9.5. Blood gases today show pH 7.46 with PCO2 45 and a PO2 of 54. Glucose over the past 24 hours is been between 1:30 and 117. Chest x-ray she shows correlate for pneumonia and ARDS. 08/21/2021: Patient remains sedated with tracheostomy tube. A PEG tube placement is planned for tomorrow. She is on oral gastric feeding tube at goal at this time. She is afebrile. Vitals are stable. She remains mechanically ventilated. She currently remains on fentanyl and propofol, the doses have been reduced. Staff report she'll open her eyes but is not following commands at this time. She is a Sosa catheter to gravity. There's been no bowel movement. Multiple days. She remains on the COVID-19 cocktail including Decadron, L ovenox, Protonix, vitamin C. She remains on cefepime antibiotics for possible Moraxella pneumonia. 08/29/2021: Patient remains sedated with tracheostomy tube. PEG tube placement done 08/22/2021. She is afebrile. She remains mechanically ventilated. FIO2 is 60%. PEEP 20. She currently remains on Fentanyl and propofol, Staff report she'll open her eyes but is not following commands at this time. She is a Sosa catheter to gravity. . She remains on the COVID-19 cocktail including Decadron, Lovenox, Protonix, vitamin C. she is NOT improving. 08/30/2021:She is afebrile. She remains mechanically ventilated. the patient remains intubated on a mechanical ventilator. Tracheostomy placed on 08/24/2021 .Peg Tube feeds continue. She remains sedated and she is on propofol Fentanyl was turned off yesterday. The patient is currently on no paralytics. FiO2 is currently at 60% with a PEEP of 20. she is on no antibiotics currently. Blood gas that shows a pH of 7.4 with a pCO2 of 50 and pO2 of 75. The white cell count today is at 8.1 with a hemoglobin of 10 and a platelet count of 160. Electrolytes, show the creatinine is 1.29 with a BUN of 65, She was started on diuretics of Lasix 40 mg IV every 12 hours. The patient is currently on Decadron which is running at 6 mg IV every 24 hours. The patient is also on Levemir insulin at a dose of 30 units in the morning and 10 units in the evening along with a slight scale coverage. IV fluids are currently at KVO. Her husand was at bedside and I was able to speak to him as t othe senior care outlook for Malinda. The fact we have see NO improvement in her overall condition is troubling and a poor prognostic indicator. he is now arare of this and of her poor outcome likelyhood. 08/31/2021::the patient is afebrile. She remains mechanically ventilated. the patient remains intubated on a mechanical ventilator. Tracheostomy placed on 08/24/2021 .Peg Tube feeds continue. She remains sedated and she is on propofol, The patient is currently on no paralytics. FiO2 is currently at 60% with a PEEP of 20. she is on no antibiotic s currently. Blood gas that shows a pH of 7.4 with a pCO2 of 54 and pO2 of 68. The white cell count today is at 7.6 with a hemoglobin of 10.3 and a platelet count of 161. Electrolytes, show the creatinine is 1.34 with a BUN of 66, The patient is currently on Decadron which is running at 6 mg IV every 24 hours. The patient is also on Levemir insulin at a dose of 30 units in the morning and 10 units in the evening along with a slight scale coverage. IV fluids are currently at KVO. 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 SHe [facility] Objective - Vital Signs Vital signs: Vital Signs Temp 98.3 F 08/31/21 09:08 Pulse 85 08/31/21 11:00 Resp 28 H 12/22/21 11:00 BP 121/61 08/31/21 11:00 Pulse Ox 92 L 08/31/21 11:00 Intake & Output 08/30/21 08/31/21 08/31/21 18:59 06:59 18:59 Intake Total 766.282 902.000 385 Output Total 1375 1455 565 Balance -608.718 -553.000 -180 Weight 102.6 kg 100.2 kg Intake: IV 253 276 115 Pressure Bag 0.9% Sodium 33 36 15 Chloride @ 3mL/hr Sodium Chloride 0.9% 1, 220 240 100 000 ml @ 20 mls/hr IV . Q24H JETHRO Rx#:[id number] Intake, IV Titration 143.282 200.000 Amount propofoL 1,000 mg In 143.282 200.000 Empty Bag 1 bag @ Titrate IV .Q0M JETHRO Rx#: [id number] Tube Feeding 280 336 140 Other 90 90 130 Output: Urine 1375 1455 565 Other: Voiding Method Indwelling Catheter Indwelling Catheter Indwelling Catheter ABP, PAP, CO, CI - Last Documented Arterial Blood Pressure 127/56 - Exam GENERAL: elderly female currently with tracheostomy being mechanically ventilated and sedated. NECK: Tracheostomy tube in place. Oral feeding tube in place. LUNGS: Breath sounds coarse bilaterally and mechanically ventilated HEART: Regular rate and rhythm without murmurs, rubs or gallops.S1S2 Normal ABDOMEN: Soft, nontender, normoactive bowel sounds. No guarding, no rebound. No masses appreciated. PEG in place LUQ EXTREMITIES:no pitting or edema. No clubbing or cyanosis. NEUROLOGICAL: Sedated SKIN: Warm, Dry, normal turgor, no rashes or lesions noted. - Labs CBC & Chem 7: 08/31/21 03:35 08/31/21 03:35 Labs: Abnormal Lab Results - Last 24 Hours (Table) 08/30/21 08/30/21 08/30/21 Range/Units 17:25 19:54 23:57 RBC (3.80-5.40) m/uL Hgb (11.4-16.0) gm/dL Hct (34.0-46.0) % RDW (11.5-15.5) % Lymphocytes # (1.0-4.8) k/uL Eosinophils # (0-0.7) k/uL ABG pCO2 (35-45) mmHg ABG pO2 (83-108) mmHg ABG HCO3 (21-25) mmol/L ABG O2 Saturation (94-97) % Carbon Dioxide (22-30) mmol/L BUN (7-17) mg/dL Creatinine (0.52-1.04) mg/dL Glucose (74-99) mg/dL POC Glucose (mg/dL) 186 H 142 H 105 H (75-99) mg/dL 08/31/21 08/31/21 08/31/21 Range/Units 03:35 03:35 05:08 RBC 3.34 L (3.80-5.40) m/uL Hgb 10.3 L (11.4-16.0) gm/dL Hct 31.9 L (34.0-46.0) % RDW 16.1 H (11.5-15.5) % Lymphocytes # 0.8 L (1.0-4.8) k/uL Eosinophils # 0.9 H (0-0.7) k/uL ABG pCO2 (35-45) mmHg ABG pO2 (83-108) mmHg ABG HCO3 (21-25) mmol/L ABG O2 Saturation (94-97) % Carbon Dioxide 32 H (22-30) mmol/L BUN 66 H (7-17) mg/dL Creatinine 1.34 H (0.52-1.04) mg/dL Glucose 134 H (74-99) mg/dL POC Glucose (mg/dL) 129 H (75-99) mg/dL 08/31/21 08/31/21 Range/Units 05:50 11:53 RBC (3.80-5.40) m/uL Hgb (11.4-16.0) gm/dL Hct (34.0-46.0) % RDW (11.5-15.5) % Lymphocytes # (1.0-4.8) k/uL Eosinophils # (0-0.7) k/uL ABG pCO2 54 H (35-45) mmHg ABG pO2 68 L (83-108) mmHg ABG HCO3 31 H (21-25) mmol/L ABG O2 Saturation 93.4 L (94-97) % Carbon Dioxide (22-30) mmol/L BUN (7-17) mg/dL Creatinine (0.52-1.04) mg/dL Glucose (74-99) mg/dL POC Glucose (mg/dL) 173 H (75-99) mg/dL Microbiology - Last 24 Hours (Table) 08/29/21 12:25 Gram Stain - Final Sputum Sputum Culture - Final Staphylococcus aureus Assessment and Plan (1) Acute respiratory failure with hypoxia Current Visit: Yes Status: Acute Code(s): J96.01 - ACUTE RESPIRATORY FAILURE WITH HYPOXIA SNOMED Code(s): 83078792 (2) Pneumonia due to COVID-19 virus Current Visit: Yes Status: Acute Code(s): U07.1 - COVID-19; J12.82 - PNEUMONIA DUE TO CORONAVIRUS DISEASE 2018 SNOMED Code(s): 256730011929549663 (3) Hypoxia Current Visit: Yes Status: Acute Code(s): R09.02 - HYPOXEMIA SNOMED Code(s): 591875547 (4) Hypothyroidism, unspecified Current Visit: Yes Status: Acute Code(s): E03.9 - HYPOTHYROIDISM, UNSPECIFIED SNOMED Code(s): 91765563 (5) Mixed hyperlipidemia Current Visit: Yes Status: Acute Code(s): E78.2 - MIXED HYPERLIPIDEMIA SNOMED Code(s): 735089282 (6) Type 2 diabetes mellitus without complications Current Visit: Yes Status: Acute Code(s): E11.9 - TYPE 2 DIABETES MELLITUS WITHOUT COMPLICATIONS SNOMED Code(s): 946616460 Plan: I will defer to critical care/grain loader while she is in the intensive care uni t. She'll remain on her current medications. She'll continue on the current covid protocol, Continue dexamethasone, Lovenox, pantoprazole, levothyroxine, insulin scale, Levemir daily at bedtime PEG tube with feeds at goal possible plane for LTC ecf with trach i nthe future
[2021-08-31 18:46] LABS: Glucose,Whole Blood 169 mg/dL (75-99)
[2021-08-31 21:41] LABS: Glucose,Whole Blood 159 mg/dL (75-99)
[2021-08-31 23:19] LABS: Glucose,Whole Blood 136 mg/dL (75-99)
[2021-09-01] MEDS ORDERED: EPINEPHrine 10 ML SYRINGE (0.1 MG/ML) ONE
[2021-09-01] MEDS ORDERED: methylPREDNISolone SOD SUCCI 125 MG/2 ML VIAL IV STA (00:20)
[2021-09-01] MEDS ORDERED: FUROSEMIDE 10 MG/ML 4 ML VIAL IV STA (00:20)
[2021-09-01 00:28] LABS: Glucose,Whole Blood 151 mg/dL (75-99)
--- NOTE | 2021-09-01 00:34 | XR ---
EXAMINATION TYPE: XR chest 1V portable DATE OF EXAM: 09/01/2021 COMPARISON: Yesterday HISTORY: Respiratory failure TECHNIQUE: Single view FINDINGS: There is pulmonary interstitial and airspace edema. There are chest leads. There is left kyle bclavian catheter with tip in the right atrium. Bony thorax is intact. IMPRESSION: There is moderate pulmonary edema that is worse than yesterday and consistent with RDS.
--- NOTE | 2021-09-01 00:59 | XR ---
EXAMINATION TYPE: XR chest 1V portable DATE OF EXAM: 09/01/2021 COMPARISON: Today HISTORY: Check tube placement TECHNIQUE: Single view FINDINGS: There is tracheostomy tube 5 cm from the kay. There is pulmonary interstitial and airspa ce edema. Heart size is normal. There is left subclavian catheter with tip in the right atrium. There are chest leads. IMPRESSION: There is improvement in the pulmonary edema compared to the exam 20 minutes ago.
[2021-09-01] MEDS: ALBUTEROL HFA INHALER INHALATION SCH ×6 (03:01→23:10)
[2021-09-01 04:05] LABS: C Reactive Protein 7.1 mg/dL (<1.0)
[2021-09-01 04:34] LABS: Anisocytosis Slight; Basophils # (A) 0.1 k/uL (0-0.2); Basophils % (A) 1 %; Eosinophils # (A) 0.6 k/uL (0-0.7); Eosinophils % (A) 5 %; HCT 33.3 % (34.0-46.0); HGB 11.1 gm/dL (11.4-16.0); Hypochromasia Moderate; Lymphocytes # (A) 0.5 k/uL (1.0-4.8); Lymphocytes % (A) 5 %; MCH 32.3 pg (25.0-35.0); MCHC 33.2 g/dL (31.0-37.0); MCV 97.2 fL (80.0-100.0); Macrocytosis Slight; Mean Platelet Volume 8.5; Monocytes # (A) 0.6 k/uL (0-1.0); Monocytes % (A) 6 %; Neutrophils % (A) 82 %; Platelet Count 171 k/uL (150-450); Poikilocytosis Slight; RBC 3.42 m/uL (3.80-5.40); RDW 16.2 % (11.5-15.5); WBC 10.9 k/uL (3.8-10.6)
[2021-09-01 04:58] LABS: Albumin 2.9 g/dL (3.5-5.0); Calcium 9.6 mg/dL (8.4-10.2); Potassium 4.3 mmol/L (3.5-5.1); Total Bilirubin 0.5 mg/dL (0.2-1.3); Total Protein 6.2 g/dL (6.3-8.2)
[2021-09-01] MEDS: NOREPINEPHRINE 4 MG in SODIUM CHLORIDE 0.9% 250 ML IV SCH ×2 (05:29→15:45)
[2021-09-01] MEDS: LEVOTHYROXINE 100 MCG TAB OG-TUBE SCH (05:30)
[2021-09-01 05:43] LABS: ABG Base Excess 7.2 mmol/L; ABG HCO3 33 mmol/L (21-25); ABG Oxygen Saturation 92.8 % (94-97); ABG PCO2 66 mmHg (35-45); ABG PH 7.32 (7.35-7.45); ABG PO2 69 mmHg (83-108); ABG TCO2 35 mmol/L (19-24)
[2021-09-01 05:59] LABS: Glucose,Whole Blood 224 mg/dL (75-99)
[2021-09-01] MEDS: INSULIN ASPART (NovoLOG) 100 UNIT/ML VIAL SQ SCH ×4 (06:02→23:35)
[2021-09-01 06:26] LABS: Allen Test Performed? no
[2021-09-01] MEDS: INSULIN DETEMIR (LEVEMIR) 100 UNIT/ML SYR SQ SCH ×2 (06:33→20:46)
[2021-09-01] MEDS: SODIUM CHLORIDE 0.9% 1,000 ML IV SCH ×2 (08:57→20:47)
[2021-09-01] MEDS: fentaNYL (PF). 1,000 MCG in SODIUM CHLORIDE 0.9% 80 ML IV SCH ×2 (08:57→20:47)
[2021-09-01] MEDS: ASCORBIC ACID 500 MG TAB PO SCH (09:04)
[2021-09-01] MEDS: CHOLECALCIFEROL 125 MCG (5000 IU) TABLET PO SCH (09:04)
[2021-09-01] MEDS: CHLORHEXIDINE GLUCONATE 15 ML CUP MUCOUS MEM SCH ×2 (09:04→20:38)
[2021-09-01] MEDS: DEXAMETHASONE SOD PHOSPHATE 10 MG/ML 1 ML VIAL IVP SCH (09:04)
[2021-09-01] MEDS: ENOXAPARIN 40 MG/0.4 ML SYRINGE SQ SCH (09:05)
[2021-09-01] MEDS: FUROSEMIDE 10 MG/ML 2 ML VIAL IV SCH ×2 (09:05→20:38)
[2021-09-01] MEDS: PANTOPRAZOLE 40 MG/10 ML VIAL IVP SCH (09:05)
[2021-09-01] MEDS: ZINC SULFATE 220 MG CAP PO SCH (09:05)
[2021-09-01 11:16] LABS: Glucose,Whole Blood 224 mg/dL (75-99)
--- NOTE | 2021-09-01 13:36 | P.PN ---
Subjective Progress Note Date: 09/01/21 Principal diagnosis: Acute hypoxic resp. failure second to COVID-19 pneumonia 08/14/2021, the patient's condition remains essentially unchanged. She has post COVID 19 related pneumonia with secondary ARDS and her oxygenation has remained unchanged and her ventilator settings have been essentially remained stable over the past several days. This morning, the patient remains sedated and she is currently on propofol running at a rate of 45 mcg/kg per minute. The patient is not paralyzed at this point in time. We should be able to cut down her sedation to a lower level at this point. Meanwhile, we are still allowed permissive hypercapnia. She is on low tidal volume mechanical ventilation with a tidal volume of 325, rate of 26, PEEP is at 60 with an FiO2 of 90%. Peak airway pressures 33. Static pressures 31 and all of these numbers are comparable to yesterday. The blood gas showed a pH of 7.37 with a pCO2 of 60 and pO2 of 60. She remains on IV cefepime as the cultures Moraxella in her sputum. Her respiratory secretions are scant at this point in time. She is afebrile. She is hemodynamic is stable. She remains on Decadron. Her mother markers have improved specially the LDH. Her CRP was still elevated at 23 however this was also downtrending. She remains on enteral feeding for nutritional support. She is receiving vital AF and she is currently ongoing. Urine output is adequate. Overall fluid balance over the past 24 hours has been +457 mL. No signs of any significant: Overload. Noted the patient has been intubated on 08/05/2021 and her progress has been essentially minimal at this point in time. Unable to do any further weaning from mechanical ventilator due to her poor oxygenation status. Chest x-ray from yesterday was noted. A repeat chest x-ray will be done today. Rest of the blood work essentially stable. She remains on Levemir insulin 30 units in the morning and 10 units in the evening and she is also on a sliding scale insulin coverage. She is also on Lovenox 40 mg subcu for DVT prophylaxis. IV fluids are currently at KVO. Reevaluated today on 08/15/2021, patient remains in the ICU, intubated and mechanically ventilated. She is presently on assist control rate of 26, tidal volume of 325 FiO2 75% PEEP 16. ABG earlier on 90% showed a pO2 of 85 pCO2 of 80 pH of 7.28. Patient is on propofol at 25 g per acute per minute, off Nimbex for now, not requiring any pressors, hemodynamically parra patient is doing well. Patient is on enteral feeding using vital AF 23 mL per hour. Today I suggested adding fentanyl for adequate ventilation and control agitation as propofol alone does not seem to be enough unless we have to increase the dose. Patient had a sedation holiday yesterday, and not much of an improvement noted in the mental status, and the patient would not respond to any stimuli. I suggested today to start increasing the dose of propofol as she seems to be tachypneic and tachycardic, and if not enough, will add fentanyl. But try to avoid Nimbex if possible. Chest x-ray continues to show bilateral interstitial infiltrates. Lines and tubes seem to be in proper position. Labs today WBC count 15.7 hemoglobin 11.2 d-dimer is 1.2, electrodes are normal except for slightly elevated sodium of 145 bicarb is 35 BUN is 69 creatinine 0.93. LDH is 679 C- reactive protein is 26.6 months much of a change in the last few days in both inflammatory markers. Patient remains on the COVID-19 cocktail, she is also on cefepime. Lovenox 40 mg subcu daily. Patient had Moraxella growing out of her sputum on 08/13 and 08/05. Patient was reevaluated today on 08/16/2021, remains in the ICU, intubated and m echanically ventilated. Patient is on assist control rate of 26 tidal volume 325 PEEP of 16 FiO2 75%, ABG showed a pO2 of 73 pCO2 87 pH of 7.24 hence her respiratory rate was increased to 32. Patient remains on propofol at 50 fentanyl at 0.5 mcg/kg/h, she is not requiring Nimbex. Patient had a relatively elevated inflammatory markers including LDH of 766 and C-reactive protein of 18.7. Chest x-ray is not showing much of a change, continues to have bilateral interstitial infiltrates. WBC count showed the 15.7, hemoglobin 11.3 ID d-dimer is 1.12 Reevaluated today on 08/17/2021, patient remains in the ICU, intubated and mechanically ventilated. Patient is scheduled to undergo tracheostomy and PEG tube placement today. She is presently on assist control rate of 3 to tidal volume 325 FiO2 65% and PEEP of 16 she remains on fentanyl at 1 mcg/kg/h propofol at 20 mcg/kg/m patient is on enteral feeding but it is presently on hold for her tracheostomy and PEG tube placement. Chest x-ray continues to show diffuse pneumonic process/ARDS. ABG this morning on 50% showed a pO2 of 52 pCO2 of 72 pH of 7.32, hence FiO2 was increased up to 65%. CBC is relatively unremarkable, sodium is 146 renal profile showed a BUN of 89 creatinine of 1.15. LDH is 509 and C-reactive protein is 8.7. Reevaluated today on 08/18/2021, patient remains in the ICU, intubated and mechanically ventilated. Patient is on assist control rate of 3 to tidal volume 325 FiO2 70% PEEP of 16. ABG is marginal with a pO2 of 60 pCO2 of 70 pH of 7.32, hence no changes were made on her ventilator settings. Patient remains on a fall at 50 mcg/kg/m fentanyl 1 mcg/kg/h she is on D5 4500 mL per hour. CBC is relatively unremarkable hemoglobin is 10.1 electrolytes and renal profile are normal. Patient was seen by general surgery yesterday, and could not pass a scope to be able to perform at PEG tube placement. Hence the patient is scheduled today for tracheostomy, maybe PEG tube placement could be done today in the operating room. At any rate patient is not ready for any weaning, and apparently the family had no problem proceeding with tracheostomy and PEG tube placement. Her overall clinical status remains marginal at best. Reevaluated today on 08/19/2021, patient remains in the ICU, intubated and mecha nically ventilated. Patient is on assist control rate of 32, tidal volume 325 and today I have increased the volume to 400 mostly because of ongoing cough leak from the new tracheostomy she is on 90% FiO2, and PEEP of 16. Chest x-ray continues to show bilateral infiltrates, not much of a change. Patient underwent uneventful tracheostomy yesterday. Her ABG this morning showed a pO2 of 74 pCO2 of 63 pH of 7.35, and not much of a change on the ventilator settings except increasing the tidal volume up to 400. I did cut down her FiO2 to 70%, and instructed nursing to keep her O2 saturation between 89 and 91%. She is on propofol at 25 mcg/kg/m fentanyl 1 mcg/kg/h she is also on Nimbex, and on IV fluid 0.9 normal saline at 20 mL per hour. Patient is scheduled to have a PICC line today. And will DC the central line. After a PICC line placement. Patient remains on enteral feeding via orogastric tube, receiving vital AF and 31 mL per hour. Electrolytes and renal profile are normal today. Remains on the COVID-19 cocktail including ascorbic acid, she is also on Decadron 6 mg IV push daily, Lovenox 40 mg subcu daily, Protonix 40 mg daily IV push, zinc, patient is also on cefepime for underlying Moraxella catarrhalis pneumonia. Reevaluated today on 08/20/2021, patient remains in the ICU, intubated and mechanically ventilated. She is on assist control rate of 3 to tidal volume 400 FiO2 75% PEEP of 16. ABG showed a pO2 of 54 DC O2 of 45 pH of 7.46, hence The patient on FiO2 of 75%, and no other vent changes were made. Patient continues to have tracheostomy, she underwent tracheostomy on 08/17/21, minimal air leak noted from the tracheostomy, however seems to be improving, and she is achieving near her septal volumes. Patient is on fentanyl at 20 mcg/kg/h propofol 25 mc g/kg/m and she is on vital AF. Rate 34. Patient is not on any paralytics. Hence I would assess mental status hopefully today of or possibly a lower dose of sedation. CBC is relatively normal hemoglobin is 9.5. Electrolytes are normal, BUN is 64 creatinine 0.97. Patient is receiving enteral feeding. Remains on the COVID-19 cocktail including Decadron 6 mg IV push daily Lovenox 40 mg subcu daily Protonix 40 mg IV push daily and she is also on vitamin C. Remains on cefepime for underlying Moraxella catarrhalis pneumonia. Reevaluated today on 08/21/2021, patient remains in the ICU intubated and mechanically ventilated. She is on assist control rate of 30 tidal volume 400 FiO2 is at 80% and PEEP is at 16 after reviewing her ABG which showed a pO2 of 65 pCO2 45 pH of 7.44 I recommended decreasing FiO2 to 70%. Patient did not tolerate higher PEEP/18. Hence kept on a PEEP of 16. Patient remains on propofol at 20 fentanyl at 0.5, and she is not on Nimbex. Patient is arousable she opens her eyes only. But does not follow any other instructions. Her electrolytes are normal BUN is 62 creatinine 1.01 blood pressure seems to be high S1 as the patient has lower sedation and this was the dose of propofol goes down, hence I recommended adding clevidipine's to maintain adequate blood pressure hopefully 150 systolic. Chest x-ray continues to be about the same showing bilateral infiltrates. Medications list reviewed patient is on albuterol HFA, vitamin C, cefepime 1 g every 12 hours, she is on Peridex, vitamin D, Celebrex was added today, Decadron 6 mg IV push daily NovoLog insulin and Levemir insulin. Levothyroxine 100 g daily Protonix 40 mg IV push daily and she is on zinc. On today's evaluation of 08/31/2021, I'm seeing the patient for a follow-up. Remains in ARDS follows COVID 19 related pneumonia. The patient remains sedated on propofol which is running at 25 mg/kg/m. She is off paralytics and she was also taken off fentanyl. He remains essentially the same ventilator settings , she remains on assist control mode at the rate of 32, tidal volumes of 400, FiO2 is currently at 60% with a PEEP of 20. Peak airway pressures on a mechanical ventilator is 40 on today's evaluation. The static pressure is 38, and the patient continues to have some leak around the tracheostomy tube and the leak is estimated to be around 50 mL based on returned tidal volume. The chest x-ray is showing stable bilateral lower lobe pulmonary infiltrates and the tracheostomy tube is in a good location. The last chest x-ray was from 08/29/2021. Note that the patient did have Moraxella catarrhalis and her sputum earlier and this was treated. The patient continues to be on diuretics and the patient is receiving Lasix 40 mg IV every 12 hours and the patient has been neg ative fluid balance of at least 1.1 L over the past 24 hours. Weight is currently down to 100 kg which is 5 kg last or the past few days. Meanwhile, the rest of the labs from today shows a blood gases of pH of 7.37 with a pCO2 of 54 and pO2 of 68 and this was on FiO2 of 50%. White cell count 7.6 with a hemoglobin of 10.3, the creatinine is at 1.34 with a mean of 66 and this has been essentially stable, serum bicarb is slightly higher why the patient is being diuresis and the bicarb currently is at 32 with a sodium level of 143. She remains on propofol and triglyceride level was at 262. Liver function tests were normal from yesterday. Her most recent pro-calcitonin level was from 08/12/2021 and has not been checked since. On a separate note, the repeat a sputum sample is showing staph aureus. She remains on Levemir insulin 10 units at bedtime and 30 units in the morning along with a sliding scale coverage. She is on Lovenox 40 mg subcu for DVT prophylaxis. IV fluids are currently at KVO. Enterofeeding is in the form of vitamin AF at the rate of 28 mL an hour which is currently at goal. Reevaluated today on 09/01/2021, patient remains in ICU, intubated and mechanically ventilated. She is on assist control rate of 3 to tidal volume 400 FiO2 90% and PEEP remains at 20. Apparently last night the patient had an episode of unresponsiveness, and she basically arrested. Her down time was 3 minutes, patient responded to one dose of epinephrine, and 1 round of CPR/2 minutes. Today the patient is sedated, she is on hardly any propofol at 50 mcg/m, she is on enteral feeding. She remains on vital AF at 28 mL per hour. Remains on Lasix and on Decadron. Her mental status is extremely poor, and it was even poor prior to her cardiac arrest yesterday. Looking at the events from yesterday, patient may have developed some mucus plugging in the tracheostomy tube, and at one point she was difficult to ventilate or back, there is also some difficulty introducing a suction catheter through the tracheostomy tube. Patient had a brief cardiac arrest, however the obstruction resolved during the code. The [facility] see count today is 10.9 hemoglobin 11.1. ABG is marginal with a pO2 of 69 pCO2 of 66 pH of 7.32 and this was on the 100%. Electrolytes are normal BUN is 69 creatinine is 1.27, not much mold insert changer the last few days. X- ray was reviewed, bilateral infiltrates persists. Medications parra, patient remains on the COVID-19 cocktail. On Decadron 6 mg IV push daily Lasix 20 mg IV push every 12 hours. Insulin as per protocol. Levothyroxine Protonix 40 mg IV push daily. Norepinephrine if needed, not on any antibiotics presently. Sputum did show MSSA., At one point she had Moraxella catarrhalis, and I believe both with treated, no need to restart antibiotics at this point. Objective - Vital Signs Vital signs: Vital Signs Temp 97.6 F 09/01/21 08:00 Pulse 75 09/01/21 11:00 Resp 25 H 09/01/21 11:00 BP 96/62 09/01/21 11:00 Pulse Ox 95 09/01/21 11:00 Intake & Output 08/31/21 09/01/21 09/01/21 18:59 06:59 18:59 Intake Total 902 881.657 392.818 Output Total 1230 1340 525 Balance -328 -458.343 -132.182 Weight 97.8 kg Intake: IV 276 299 92 Pressure Bag 0.9% Sodium 36 39 12 Chloride @ 3mL/hr Sodium Chloride 0.9% 1, 240 260 80 000 ml @ 20 mls/hr IV . Q24H JETHRO Rx#:[id number] Intake, IV Titration 100 128.657 58.818 Amount propofoL 1,000 mg In 100 128.657 58.818 Empty Bag 1 bag @ Titrate IV .Q0M JETHRO Rx#: [id number] Tube Feeding 336 364 112 Other 190 90 130 Output: Urine 1230 1340 525 Other: Voiding Method Indwelling Catheter Indwelling Catheter Indwelling Catheter ABP, PAP, CO, CI - Last Documented Arterial Blood Pressure 133/55 - Exam Physical Exam: Revealed a 76-year-old female sedated, Tracheostomy is intact. Head: Atraumatic, normocephalic. Tracheostomy is intact. HEENT:[Neck is supple.] [No neck masses.] [No thyromegaly.] [No JVD.] Chest: Crackles at the bases no rhonchi and no wheezes Cardiac Exam: Distant S1 and S2, no S3 gallop. Abdomen: [Obese, Soft, nontender, no megaly, no rebound, no guarding, normal bowel sounds.] Extremities: [No clubbing, 1+ bipedal edema, no cyanosis.] Neurological Exam: Opens eyes only but does not respond to any other stimuli. No purposeful responses are improvement. Psychiatric: Could not assess. Skin: No rashes. - Labs CBC & Chem 7: 09/01/21 04:15 09/01/21 04:15 Labs: Abnormal Lab Results - Last 24 Hours (Table) 08/31/21 08/31/21 08/31/21 Range/Units 03:35 06:00 18:44 WBC (3.8-10.6) k/uL RBC (3.80-5.40) m/uL Hgb (11.4-16.0) gm/dL Hct (34.0-46.0) % RDW (11.5-15.5) % Neutrophils # (1.3-7.7) k/uL Lymphocytes # (1.0-4.8) k/uL D-Dimer (<0.60) mg/L FEU ABG pH (7.35-7.45) ABG pCO2 (35-45) mmHg ABG pO2 (83-108) mmHg ABG HCO3 (21-25) mmol/L ABG Total CO2 (19-24) mmol/L ABG O2 Saturation (94-97) % Carbon Dioxide (22-30) mmol/L BUN (7-17) mg/dL Creatinine (0.52-1.04) mg/dL Glucose (74-99) mg/dL POC Glucose (mg/dL) 169 H (75-99) mg/dL ALT (4-34) U/L Lactate Dehydrogenase 2690 H (313-618) U/L C-Reactive Protein 7.1 H (<1.0) mg/dL Total Protein (6.3-8.2) g/dL Albumin (3.5-5.0) g/dL Procalcitonin 0.28 H (0.02-0.09) ng/mL 08/31/21 08/31/21 08/31/21 Range/Units 21:40 23:17 Unknown WBC (3.8-10.6) k/uL RBC (3.80-5.40) m/uL Hgb (11.4-16.0) gm/dL Hct (34.0-46.0) % RDW (11.5-15.5) % Neutrophils # (1.3-7.7) k/uL Lymphocytes # (1.0-4.8) k/uL D-Dimer 0.70 H (<0.60) mg/L FEU ABG pH (7.35-7.45) ABG pCO2 (35-45) mmHg ABG pO2 (83-108) mmHg ABG HCO3 (21-25) mmol/L ABG Total CO2 (19-24) mmol/L ABG O2 Saturation (94-97) % Carbon Dioxide (22-30) mmol/L BUN (7-17) mg/dL Creatinine (0.52-1.04) mg/dL Glucose (74-99) mg/dL POC Glucose (mg/dL) 159 H 136 H (75-99) mg/dL ALT (4-34) U/L Lactate Dehydrogenase (313-618) U/L C-Reactive Protein (<1.0) mg/dL Total Protein (6.3-8.2) g/dL Albumin (3.5-5.0) g/dL Procalcitonin (0.02-0.09) ng/mL 09/01/21 09/01/21 09/01/21 Range/Units 00:17 04:15 04:15 WBC 10.9 H (3.8-10.6) k/uL RBC 3.42 L (3.80-5.40) m/uL Hgb 11.1 L (11.4-16.0) gm/dL Hct 33.3 L (34.0-46.0) % RDW 16.2 H (11.5-15.5) % Neutrophils # 9.0 H (1.3-7.7) k/uL Lymphocytes # 0.5 L (1.0-4.8) k/uL D-Dimer (<0.60) mg/L FEU ABG pH (7.35-7.45) ABG pCO2 (35-45) mmHg ABG pO2 (83-108) mmHg ABG HCO3 (21-25) mmol/L ABG Total CO2 (19-24) mmol/L ABG O2 Saturation (94-97) % Carbon Dioxide 33 H (22-30) mmol/L BUN 69 H (7-17) mg/dL Creatinine 1.27 H (0.52-1.04) mg/dL Glucose 216 H (74-99) mg/dL POC Glucose (mg/dL) 151 H (75-99) mg/dL ALT 36 H (4-34) U/L Lactate Dehydrogenase (313-618) U/L C-Reactive Protein (<1.0) mg/dL Total Protein 6.2 L (6.3-8.2) g/dL Albumin 2.9 L (3.5-5.0) g/dL Procalcitonin (0.02-0.09) ng/mL 09/01/21 09/01/21 09/01/21 Range/Units 05:42 05:58 11:15 WBC (3.8-10.6) k/uL RBC (3.80-5.40) m/uL Hgb (11.4-16.0) gm/dL Hct (34.0-46.0) % RDW (11.5-15.5) % Neutrophils # (1.3-7.7) k/uL Lymphocytes # (1.0-4.8) k/uL D-Dimer (<0.60) mg/L FEU ABG pH 7.32 L (7.35-7.45) ABG pCO2 66 H (35-45) mmHg ABG pO2 69 L (83-108) mmHg ABG HCO3 33 H (21-25) mmol/L ABG Total CO2 35 H (19-24) mmol/L ABG O2 Saturation 92.8 L (94-97) % Carbon Dioxide (22-30) mmol/L BUN (7-17) mg/dL Creatinine (0.52-1.04) mg/dL Glucose (74-99) mg/dL POC Glucose (mg/dL) 224 H 224 H (75-99) mg/dL ALT (4-34) U/L Lactate Dehydrogenase (313-618) U/L C-Reactive Protein (<1.0) mg/dL Total Protein (6.3-8.2) g/dL Albumin (3.5-5.0) g/dL Procalcitonin (0.02-0.09) ng/mL Microbiology - Last 24 Hours (Table) 08/29/21 12:25 Gram Stain - Final Sputum Sputum Culture - Final Staphylococcus aureus Assessment and Plan Assessment: Impression: Acute hypoxic respiratory failure secondary to COVID-19 pneumonia, patient was on baricitinib and this was discontinued because of the Moraxella infection noted. Fully treated. Patient was intubated on 08/05/2021, developed ARDS from COVID-19 pneumonia. Remains in full blown ARDS. Continues to have elevated static pressures. Patient is status post tracheostomy, overall the patient is not doing well, and I believe her prognosis is extremely poor. Not to mention the patient had an episode of cardiac arrest yesterday, and that basically is making the picture even worse. I strongly recommending discussing CODE STATUS with family and possibly go to comfort care measures. ARDS secondary to COVID-19 pneumonia Elevated inflammatory markers second to COVID-19 pneumonia Benign essential hypertension Suspect metabolic encephalopathy secondary to COVID-19 pneumonia, also suspect anoxic brain injury. Dyslipidemia Type 2 diabetes History of hypothyroidism Status post tracheostomy on 07/19/2021, however attempts failed to place a PEG tube in this patient. 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 Status post cardiac arrest/3 minutes of CPR with return of spontaneous circulation. On 08/31/21. Recommendations: Continue ventilatory support , rate of 3 to tell volume 400 FiO2 100% we cut it down to 90% and PEEP at 20. Patient clearly has severe ARDS. Immune nutritional support/enteral feeding. Continue COVID-19 cocktail Continue Decadron. More need for antibiotics at present. Patient remains critically ill. Prognosis remains poor and guarded. Will need to discuss her situation with family and possibly go for comfort care measures if family is agreeable. Her overall picture is extremely poor. Critical care time is over 30 minutes. Time with Patient: Greater than 30
--- NOTE | 2021-09-01 13:42 | P.PN ---
Subjective This is a 76-year-old white female who not been seen in our office for over a year. He came emergency room with cough congestion dyspnea and weakness and fatigue for several weeks. She tested positive for cover a week ago with a home test per the emergency room physician. Per the ER physician she not been vaccinated for current receive any [place] and treatment. She indicates shortness of breath had gotten worse. She denied any fevers severe headache chest pain or pressure. She was seen emergency room. She was on a BiPAP at this time in the intensive care unit.. Her conversation is limited by this. 08/06/2021: Patient is now intubated and sedated/paralyzed. This was done approximately 8 PM last night. She has COVID-19 pneumonia. She remains afebrile. Pulse is somewhat bradycardic over the past 18 hours. Respiratory rate is mechanically ventilated. Blood pressure is stable to this time. Labs show leukocytosis with a WBC count of 15.4 hemoglobin was 12 3 platelets are 113. There is an absolute neutrophilia at 14. Blood gases show pH 7.41 with a P CO2 of 40 and a PO2 of 78. Chemistries essentially normal slightly elevated BUN 21 creatinine 0.78. Glucoses are better controlled. She was placed on insulin drip yesterday. Cultures no growth after 24 hours and the blood, sputum culture pending. Chest x-ray shows bilateral multifocal confluent opacities consistent COVID-19 infection. Improved aeration suggesting improving. He has orders for Ventolin HFA inhaler, remains on vitamin C vitamin D, along with the dexamethasone. She is receiving Baricitnib all for Covid. She is paralyzed and Nimbex and remains on propofol for sedation. Staff indicated tube feeds may start soon. 08/07/2021:This is a 76-year-old female who presented to emergency room with cough, congestion, dyspnea and weakness and fatigue over several weeks. Approximately week ago patient took a home Covid test which indicated that she was positive. She has not received Covid vaccine or treatment for the positive Covid test. When symptoms worsened she decided to present to the ER for evaluation and treatment. She was initially placed on BiPAP in the intensive care unit and subsequently been intubated. She is currently paralyzed with c isatracurium, sedated with propofol and utilizing Toradol IV push for pain management. Currently mechanically ventilated on 80% FiO2. Patient is afebrile 96.9, respiratory rate of 26, blood pressure is stable at 109/51, maintain oxygen saturation of 90% and entitle CO2 of 28. Most recent set of vital signs WC count of 15.5, hematocrit of 35.6, hemoglobin 12.0, platelet count 119. Chemistry panel reveals a sodium 138, potassium 3.8, BUN of 19, creatinine 0.72, GFR 83, AST of 99, ELT 106, alk phos 131, LDH 847. TSH of 8.37. T4 0.5, pro- calcitonin 0.34 08/08/2021 remains mechanical ventilator-dependent, FiO2 decreased to 65%, PEEP remains at 20. Continues on Nimbex and diprovan drips. Chest x-ray reported patchy bilateral infiltrate with diffuse interstitial pattern, tiny right-sided pleural effusion, received Lasix. Maintained on Rocephin (Moraxella catarrhalis in the sputum) , Covid cocktail with Baricitinib discontinued. Blood sugars elevated. Afebrile, WBC 13.3. Pro-calcitonin 0.34. 08/09/2021 continues on FiO2 65% with PEEP of 20, Nimbex and diprovan drips. Chest x-ray reporting persistent patchy bilateral infiltrate with diffuse interstitial pattern. Received additional Lasix today Blood sugars elevated, improving, A1c 8.4. Afebrile, WBC 14.3. D-dimer 0.77, ferritin increased to 2512, LDH decreased to 606, CRP increased to 21.2. LFTs decreasing with the exception of alkaline phosphatase, increased to 171. ProBNP 453. Receiving tube feeds to call, tolerating well with minimal to no residuals, stooling. 08/10/2021 remains vent dependent, FiO2 60%/+18 of PEEP. Maintained on Nimbex and diprovan drips. Chest x-ray noted, unchanged. Currently afebrile, T-max 99.1, WBC trending down, 12.7. BUN 24, and 0.74. Repeat pro-calcitonin 0.31. Additional Levemir added to med regimen yesterday, Blood sugars controlled. Received Lasix IV push yesterday again, diuresed well with 24-hour I&O reflecting a negative fluid balance. Sodium within normal limits, 142. 08/11/2021 yesterday patient of placed on Nimbex holiday, during the night unable to tolerate became asynchronous with the ventNimbex resumed. Diprovan drip continues. Maintained on FiO2 65% with PEEP decreased to 17. Maintained on Rocephin ,Covid cocktail. Chest x-ray reporting stable diffuse bilateral infiltrate. Inflammatory markers decreasing.Tolerating tube feeds minimal to no residual. Levemir increased yesterday with blood sugars controlled. Afebrile. 08/12/2021 patient was given another paralytic holiday yesterday and continues off of Nimbex. During the night, difficulty maintaining O2 sats, cuff leak discovered, required higher FiO2. Maintained on diprovan. Currently FIO2 90%, PEEP of 16. Chest x-ray reporting bilateral moderate pulmonary edema, possibly worsening, antibiotics adjusted, now on cefepime. Maintained on Covid cocktail. Blood sugars controlled. Renal function stable. 08/15/2021 remains vent dependent, FiO2 75%/+16 of PEEP. Maintained on diprovan and fentanyl drips. Currently off paralytics. Sedation holiday attempted yesterday with minimal improvement of mental status, no response to any stimuli reported. Chest x-ray reporting persistent bilateral airspace disease. Continues on cefepime. Tolerating tube feeds at goal, with minimal to no residuals, blood sugars controlled. Inflammatory markers mildly increased. 08/16/2021 remains vent dependent, FiO2 65%/+16 of PEEP. Chest x-ray reporting diffuse interstitial and alveolar infiltrates. Maintained on diprovan and fentanyl drips. Drum Tender currently discussing treatment of trach and peg with family. T-max 99.1, WBC 15.7. D-dimer, CRP decreased, LDH increased. 08/17/2021 vent dependent, FiO2 50%/+16 of PEEP. Chest x-ray reporting diffuse interstitial and alveolar infiltrates. Tube feeds and lovenox on hold. Maintained on IV fluid hydration D5/45. Scheduled for trach and peg today. T-max 99.7, WBC 13.5. Creatinine increased up to 1.15. 08/18/2021 Remains vent dependent, FiO2 70+16 of PEEP.Maintained on diprovan, fentanyl. PEG tube attempted yesterday, surgeon unable to pass scope. Patient is scheduled for tracheostomy and potential PEG tube placement today. 08/19/2021 Tracheostomy placed yesterday. Cuff leak present, TV increased. Maintained on 90% FiO2/+16 of PEEP. Chest x-ray reporting bilateral infiltrates.Continues on Nimbex, fentanyl and diprovan. PICC line placed. Tolerating tube feeds via OG of vital AF at goal of 31ml per hour. Sodium normalized, renal function stable. Blood sugars better controlled. 08/20/2021: Patient remains afebrile. She continues to be mechanically ventilated through her tracheostomy tube. Blood pressure stable. She remains on fentanyl, propofol, and cefepime IVs along with the oral tube feeds. Curr ently patient's on an FiO2 of 75%. PEEP is 16. Labs show WBC count 9.5. Blood gases today show pH 7.46 with PCO2 45 and a PO2 of 54. Glucose over the past 24 hours is been between 1:30 and 117. Chest x-ray she shows correlate for pneumonia and ARDS. 08/21/2021: Patient remains sedated with tracheostomy tube. A PEG tube placement is planned for tomorrow. She is on oral gastric feeding tube at goal at this time. She is afebrile. Vitals are stable. She remains mechanically ventilated. She currently remains on fentanyl and propofol, the doses have been reduced. Staff report she'll open her eyes but is not following commands at this time. She is a Sosa catheter to gravity. There's been no bowel movement. Multiple days. She remains on the COVID-19 cocktail including Decadron, L ovenox, Protonix, vitamin C. She remains on cefepime antibiotics for possible Moraxella pneumonia. 08/29/2021: Patient remains sedated with tracheostomy tube. PEG tube placement done 08/22/2021. She is afebrile. She remains mechanically ventilated. FIO2 is 60%. PEEP 20. She currently remains on Fentanyl and propofol, Staff report she'll open her eyes but is not following commands at this time. She is a Sosa catheter to gravity. . She remains on the COVID-19 cocktail including Decadron, Lovenox, Protonix, vitamin C. she is NOT improving. 08/30/2021:She is afebrile. She remains mechanically ventilated. the patient remains intubated on a mechanical ventilator. Tracheostomy placed on 08/24/2021 .Peg Tube feeds continue. She remains sedated and she is on propofol Fentanyl was turned off yesterday. The patient is currently on no paralytics. FiO2 is currently at 60% with a PEEP of 20. she is on no antibiotics currently. Blood gas that shows a pH of 7.4 with a pCO2 of 50 and pO2 of 75. The white cell count today is at 8.1 with a hemoglobin of 10 and a platelet count of 160. Electrolytes, show the creatinine is 1.29 with a BUN of 65, She was started on diuretics of Lasix 40 mg IV every 12 hours. The patient is currently on Decadron which is running at 6 mg IV every 24 hours. The patient is also on Levemir insulin at a dose of 30 units in the morning and 10 units in the evening along with a slight scale coverage. IV fluids are currently at KVO. Her husand was at bedside and I was able to speak to him as t othe [facility] outlook for [place]. The fact we have see NO improvement in her overall condition is troubling and a poor prognostic indicator. he is now arare of this and of her poor outcome likelyhood. 08/31/2021::the patient is afebrile. She remains mechanically ventilated. the patient remains intubated on a mechanical ventilator. Tracheostomy placed on 08/24/2021 .Peg Tube feeds continue. She remains sedated and she is on propofol, The patient is currently on no paralytics. FiO2 is currently at 60% with a PEEP of 20. she is on no antibiotic s currently. Blood gas that shows a pH of 7.4 with a pCO2 of 54 and pO2 of 68. The white cell count today is at 7.6 with a hemoglobin of 10.3 and a platelet count of 161. Electrolytes, show the creatinine is 1.34 with a BUN of 66, The patient is currently on Decadron which is running at 6 mg IV every 24 hours. The patient is also on Levemir insulin at a dose of 30 units in the morning and 10 units in the evening along with a slight scale coverage. IV fluids are currently at KVO. Her daughter was at bedside and I was able to speak to her about terminal makeup operator outlook for Malinda. SHe [facility]. 09/01/2021:Overnight, the patient had went in asystole and needed chest compressions and other support to resuscitate her.This morning, the patient is afebrile. She remains mechanically ventilated. the patient remains intubated on a mechanical ventilator. Tracheostomy placed on 08/24/2021 .Peg Tube feeds continue at goal.She is now on we referred to help with hypotension. She remains sedated on propofol, The patient is currently on no paralytics. FiO2 is currently at 60% with a PEEP of 20. she is on no antibiotics currently. Vitals stable. Blood gas that shows a pH of 7.32 with a pCO2 of 66 and pO2 of 69. The white cell count today is at 10.9 with a hemoglobin of 11. and a platelet count of 171. Electrolytes, show the creatinine is 1.27 with a BUN of 69, Sputum culture is positive for staph aureus. The patient is currently on Decadron which is running at 6 mg IV every 24 hours. The patient is also on Levemir insulin at a dose of 30 units in the morning and 10 units in the evening along with a slight scale coverage. IV fluids are curre ntly at [facility]. Objective - Vital Signs Vital signs: Vital Signs Temp 97.6 F 09/01/21 08:00 Pulse 75 09/01/21 11:00 Resp 25 H 09/01/21 11:00 BP 96/62 09/01/21 11:00 Pulse Ox 95 09/01/21 11:00 Intake & Output 08/31/21 09/01/21 09/01/21 18:59 06:59 18:59 Intake Total 902 881.657 392.818 Output Total 1230 1340 525 Balance -328 -458.343 -132.182 Weight 97.8 kg Intake: IV 276 299 92 Pressure Bag 0.9% Sodium 36 39 12 Chloride @ 3mL/hr Sodium Chloride 0.9% 1, 240 260 80 000 ml @ 20 mls/hr IV . Q24H JETHRO Rx#:[id number] Intake, IV Titration 100 128.657 58.818 Amount propofoL 1,000 mg In 100 128.657 58.818 Empty Bag 1 bag @ Titrate IV .Q0M JETHRO Rx#: [id number] Tube Feeding 336 364 112 Other 190 90 130 Output: Urine 1230 1340 525 Other: Voiding Method Indwelling Catheter Indwelling Catheter Indwelling Catheter ABP, PAP, CO, CI - Last Documented Arterial Blood Pressure 133/55 - Exam GENERAL: elderly female currently with tracheostomy being mechanically ventilated and sedated. NECK: Tracheostomy tube in place. Oral feeding tube in place. LUNGS: Breath sounds coarse bilaterally and mechanically ventilated HEART: Regular rate and rhythm without murmurs, rubs or gallops.S1S2 Normal ABDOMEN: Soft, nontender, normoactive bowel sounds. No guarding, no rebound. No masses appreciated. PEG in place LUQ EXTREMITIES:no pitting or edema. No clubbing or cyanosis. NEUROLOGICAL: Sedated SKIN: Warm, Dry, normal turgor, no rashes or lesions noted. - Labs CBC & Chem 7: 09/01/21 04:15 09/01/21 04:15 Labs: Abnormal Lab Results - Last 24 Hours (Table) 08/31/21 08/31/21 08/31/21 Range/Units 03:35 06:00 18:44 WBC (3.8-10.6) k/uL RBC (3.80-5.40) m/uL Hgb (11.4-16.0) gm/dL Hct (34.0-46.0) % RDW (11.5-15.5) % Neutrophils # (1.3-7.7) k/uL Lymphocytes # (1.0-4.8) k/uL D-Dimer (<0.60) mg/L FEU ABG pH (7.35-7.45) ABG pCO2 (35-45) mmHg ABG pO2 (83-108) mmHg ABG HCO3 (21-25) mmol/L ABG Total CO2 (19-24) mmol/L ABG O2 Saturation (94-97) % Carbon Dioxide (22-30) mmol/L BUN (7-17) mg/dL Creatinine (0.52-1.04) mg/dL Glucose (74-99) mg/dL POC Glucose (mg/dL) 169 H (75-99) mg/dL ALT (4-34) U/L Lactate Dehydrogenase 2690 H (313-618) U/L C-Reactive Protein 7.1 H (<1.0) mg/dL Total Protein (6.3-8.2) g/dL Albumin (3.5-5.0) g/dL Procalcitonin 0.28 H (0.02-0.09) ng/mL 08/31/21 08/31/21 08/31/21 Range/Units 21:40 23:17 Unknown WBC (3.8-10.6) k/uL RBC (3.80-5.40) m/uL Hgb (11.4-16.0) gm/dL Hct (34.0-46.0) % RDW (11.5-15.5) % Neutrophils # (1.3-7.7) k/uL Lymphocytes # (1.0-4.8) k/uL D-Dimer 0.70 H (<0.60) mg/L FEU ABG pH (7.35-7.45) ABG pCO2 (35-45) mmHg ABG pO2 (83-108) mmHg ABG HCO3 (21-25) mmol/L ABG Total CO2 (19-24) mmol/L ABG O2 Saturation (94-97) % Carbon Dioxide (22-30) mmol/L BUN (7-17) mg/dL Creatinine (0.52-1.04) mg/dL Glucose (74-99) mg/dL POC Glucose (mg/dL) 159 H 136 H (75-99) mg/dL ALT (4-34) U/L Lactate Dehydrogenase (313-618) U/L C-Reactive Protein (<1.0) mg/dL Total Protein (6.3-8.2) g/dL Albumin (3.5-5.0) g/dL Procalcitonin (0.02-0.09) ng/mL 09/01/21 09/01/21 09/01/21 Range/Units 00:17 04:15 04:15 WBC 10.9 H (3.8-10.6) k/uL RBC 3.42 L (3.80-5.40) m/uL Hgb 11.1 L (11.4-16.0) gm/dL Hct 33.3 L (34.0-46.0) % RDW 16.2 H (11.5-15.5) % Neutrophils # 9.0 H (1.3-7.7) k/uL Lymphocytes # 0.5 L (1.0-4.8) k/uL D-Dimer (<0.60) mg/L FEU ABG pH (7.35-7.45) ABG pCO2 (35-45) mmHg ABG pO2 (83-108) mmHg ABG HCO3 (21-25) mmol/L ABG Total CO2 (19-24) mmol/L ABG O2 Saturation (94-97) % Carbon Dioxide 33 H (22-30) mmol/L BUN 69 H (7-17) mg/dL Creatinine 1.27 H (0.52-1.04) mg/dL Glucose 216 H (74-99) mg/dL POC Glucose (mg/dL) 151 H (75-99) mg/dL ALT 36 H (4-34) U/L Lactate Dehydrogenase (313-618) U/L C-Reactive Protein (<1.0) mg/dL Total Protein 6.2 L (6.3-8.2) g/dL Albumin 2.9 L (3.5-5.0) g/dL Procalcitonin (0.02-0.09) ng/mL 09/01/21 09/01/21 09/01/21 Range/Units 05:42 05:58 11:15 WBC (3.8-10.6) k/uL RBC (3.80-5.40) m/uL Hgb (11.4-16.0) gm/dL Hct (34.0-46.0) % RDW (11.5-15.5) % Neutrophils # (1.3-7.7) k/uL Lymphocytes # (1.0-4.8) k/uL D-Dimer (<0.60) mg/L FEU ABG pH 7.32 L (7.35-7.45) ABG pCO2 66 H (35-45) mmHg ABG pO2 69 L (83-108) mmHg ABG HCO3 33 H (21-25) mmol/L ABG Total CO2 35 H (19-24) mmol/L ABG O2 Saturation 92.8 L (94-97) % Carbon Dioxide (22-30) mmol/L BUN (7-17) mg/dL Creatinine (0.52-1.04) mg/dL Glucose (74-99) mg/dL POC Glucose (mg/dL) 224 H 224 H (75-99) mg/dL ALT (4-34) U/L Lactate Dehydrogenase (313-618) U/L C-Reactive Protein (<1.0) mg/dL Total Protein (6.3-8.2) g/dL Albumin (3.5-5.0) g/dL Procalcitonin (0.02-0.09) ng/mL Microbiology - Last 24 Hours (Table) 08/29/21 12:25 Gram Stain - Final Sputum Sputum Culture - Final Staphylococcus aureus Assessment and Plan (1) Acute respiratory failure with hypoxia Current Visit: Yes Status: Acute Code(s): J96.01 - ACUTE RESPIRATORY FAILURE WITH HYPOXIA SNOMED Code(s): 41087842 (2) Pneumonia due to COVID-19 virus Current Visit: Yes Status: Acute Code(s): U07.1 - COVID-19; J12.82 - PNEUMONIA DUE TO CORONAVIRUS DISEASE 2019 SNOMED Code(s): 778262433814032118 (3) Hypoxia Current Visit: Yes Status: Acute Code(s): R09.02 - HYPOXEMIA SNOMED Code(s): 239364918 (4) Hypothyroidism, unspecified Current Visit: Yes Status: Acute Code(s): E03.9 - HYPOTHYROIDISM, UNSPECIFIED SNOMED Code(s): 66238339 (5) Mixed hyperlipidemia Current Visit: Yes Status: Acute Code(s): E78.2 - MIXED HYPERLIPIDEMIA SNOMED Code(s): 056660575 (6) Type 2 diabetes mellitus without complications Current Visit: Yes Status: Acute Code(s): E11.9 - TYPE 2 DIABETES MELLITUS WITHOUT COMPLICATIONS SNOMED Code(s): 896672775 Plan: I will defer to critical care/motion picture projectionist while 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 She'll remain on her current medications. She'll continue on the current covid protocol, Continue dexamethasone, Lovenox, pantoprazole, levothyroxine, insulin scale, Levemir daily at bedtime PEG tube with feeds at goal possible plane for LTC ecf with trach in the future
[2021-09-01 17:47] LABS: Glucose,Whole Blood 119 mg/dL (75-99)
[2021-09-01 23:33] LABS: Glucose,Whole Blood 115 mg/dL (75-99)
[2021-09-02] MEDS: ALBUTEROL HFA INHALER INHALATION SCH ×5 (03:05→20:17)
[2021-09-02] MEDS: NOREPINEPHRINE 4 MG in SODIUM CHLORIDE 0.9% 250 ML IV SCH ×2 (03:46→11:43)
[2021-09-02 04:03] LABS: Basophils # (A) 0.1 k/uL (0-0.2); Basophils % (A) 1 %; Eosinophils # (A) 1.1 k/uL (0-0.7); Eosinophils % (A) 11 %; HGB 10.3 gm/dL (11.4-16.0); Hypochromasia Moderate; Lymphocytes # (A) 1.1 k/uL (1.0-4.8); Lymphocytes % (A) 12 %; MCH 30.8 pg (25.0-35.0); MCHC 32.3 g/dL (31.0-37.0); MCV 95.4 fL (80.0-100.0); Mean Platelet Volume 9.5; Monocytes # (A) 0.9 k/uL (0-1.0); Monocytes % (A) 9 %; Neutrophils # (A) 6.4 k/uL (1.3-7.7); Neutrophils % (A) 66 %; Platelet Count 170 k/uL (150-450); Poikilocytosis Slight; RBC 3.36 m/uL (3.80-5.40); WBC 9.7 k/uL (3.8-10.6)
[2021-09-02 04:24] LABS: Albumin 2.8 g/dL (3.5-5.0); Calcium 9.8 mg/dL (8.4-10.2); Potassium 3.8 mmol/L (3.5-5.1); Total Bilirubin 0.4 mg/dL (0.2-1.3); Total Protein 6.2 g/dL (6.3-8.2)
[2021-09-02 04:57] LABS: ABG HCO3 36 mmol/L (21-25); ABG Oxygen Saturation 88.4 % (94-97); ABG PCO2 55 mmHg (35-45); ABG PH 7.42 (7.35-7.45); ABG TCO2 37 mmol/L (19-24)
[2021-09-02] MEDS ORDERED: POTASSIUM BICARB-CITRIC ACID 25 MEQ TABLET.EFF PO SCH ×2 (05:00→09:00)
[2021-09-02 05:23] LABS: Glucose,Whole Blood 94 mg/dL (75-99)
[2021-09-02] MEDS: INSULIN ASPART (NovoLOG) 100 UNIT/ML VIAL SQ SCH ×3 (05:23→17:47)
[2021-09-02] MEDS: LEVOTHYROXINE 100 MCG TAB OG-TUBE SCH (05:23)
[2021-09-02 06:13] LABS: ABG PO2 52 mmHg (83-108); Allen Test Performed? no
[2021-09-02] MEDS: INSULIN DETEMIR (LEVEMIR) 100 UNIT/ML SYR SQ SCH ×2 (06:53→21:35)
[2021-09-02] MEDS: DEXAMETHASONE SOD PHOSPHATE 10 MG/ML 1 ML VIAL IVP SCH (08:21)
[2021-09-02] MEDS: ENOXAPARIN 40 MG/0.4 ML SYRINGE SQ SCH (08:21)
[2021-09-02] MEDS: CHLORHEXIDINE GLUCONATE 15 ML CUP MUCOUS MEM SCH ×2 (08:21→21:34)
[2021-09-02] MEDS: ASCORBIC ACID 500 MG TAB PO SCH (08:21)
[2021-09-02] MEDS: CHOLECALCIFEROL 125 MCG (5000 IU) TABLET PO SCH (08:21)
[2021-09-02] MEDS: FUROSEMIDE 10 MG/ML 2 ML VIAL IV SCH (08:22)
[2021-09-02] MEDS: PANTOPRAZOLE 40 MG/10 ML VIAL IVP SCH (08:22)
[2021-09-02] MEDS: ZINC SULFATE 220 MG CAP PO SCH (08:22)
[2021-09-02] MEDS ORDERED: Potassium Replacement Protocol 1 EACH MISC MISCELLANE PRN (08:23)
[2021-09-02] MEDS: fentaNYL (PF). 1,000 MCG in SODIUM CHLORIDE 0.9% 80 ML IV SCH ×2 (08:27→15:52)
--- NOTE | 2021-09-02 08:38 | XR ---
EXAMINATION TYPE: XR chest 1V portable DATE OF EXAM: 09/02/2021 COMPARISON: Chest x-ray 09/01/2021 HISTORY: Tracheostomy tube placement TECHNIQUE: Single frontal view of the chest is obtained. FINDINGS: Left-sided PICC line, tracheostomy tube are overlying appropriate positions. Patient is ro tated. No evident pneumothorax or pleural effusion. Bilateral airspace disease is again seen. There a re overlying artifacts. Cardiac mediastinal silhouette is stable accounting for differences in techni que. IMPRESSION: Correlate for pneumonia, ARDS, edema
--- NOTE | 2021-09-02 11:02 | P.PN ---
Subjective Progress Note Date: 09/02/21 Principal diagnosis: Acute hypoxic resp. failure second to COVID-19 pneumonia 08/14/2021, the patient's condition remains essentially unchanged. She has post COVID 19 related pneumonia with secondary ARDS and her oxygenation has remained unchanged and her ventilator settings have been essentially remained stable over the past several days. This morning, the patient remains sedated and she is currently on propofol running at a rate of 45 mcg/kg per minute. The patient is not paralyzed at this point in time. We should be able to cut down her sedation to a lower level at this point. Meanwhile, we are still allowed permissive hypercapnia. She is on low tidal volume mechanical ventilation with a tidal volume of 325, rate of 26, PEEP is at 60 with an FiO2 of 90%. Peak airway pressures 33. Static pressures 31 and all of these numbers are comparable to yesterday. The blood gas showed a pH of 7.37 with a pCO2 of 60 and pO2 of 60. She remains on IV cefepime as the cultures Moraxella in her sputum. Her respiratory secretions are scant at this point in time. She is afebrile. She is hemodynamic is stable. She remains on Decadron. Her mother markers have improved specially the LDH. Her CRP was still elevated at 23 however this was also downtrending. She remains on enteral feeding for nutritional support. She is receiving vital AF and she is currently ongoing. Urine output is adequate. Overall fluid balance over the past 24 hours has been +457 mL. No signs of any significant: Overload. Noted the patient has been intubated on 08/05/2021 and her progress has been essentially minimal at this point in time. Unable to do any further weaning from mechanical ventilator due to her poor oxygenation status. Chest x-ray from yesterday was noted. A repeat chest x-ray will be done today. Rest of the blood work essentially stable. She remains on Levemir insulin 30 units in the morning and 10 units in the evening and she is also on a sliding scale insulin coverage. She is also on Lovenox 40 mg subcu for DVT prophylaxis. IV fluids are currently at KVO. Reevaluated today on 08/15/2021, patient remains in the ICU, intubated and mechanically ventilated. She is presently on assist control rate of 26, tidal volume of 325 FiO2 75% PEEP 16. ABG earlier on 90% showed a pO2 of 85 pCO2 of 80 pH of 7.28. Patient is on propofol at 25 g per acute per minute, off Nimbex for now, not requiring any pressors, hemodynamically parra patient is doing well. Patient is on enteral feeding using vital AF 23 mL per hour. Today I suggested adding fentanyl for adequate ventilation and control agitation as propofol alone does not seem to be enough unless we have to increase the dose. Patient had a sedation holiday yesterday, and not much of an improvement noted in the mental status, and the patient would not respond to any stimuli. I suggested today to start increasing the dose of propofol as she seems to be tachypneic and tachycardic, and if not enough, will add fentanyl. But try to avoid Nimbex if possible. Chest x-ray continues to show bilateral interstitial infiltrates. Lines and tubes seem to be in proper position. Labs today WBC count 15.7 hemoglobin 11.2 d-dimer is 1.2, electrodes are normal except for slightly elevated sodium of 145 bicarb is 35 BUN is 69 creatinine 0.93. LDH is 679 C- reactive protein is 26.6 months much of a change in the last few days in both inflammatory markers. Patient remains on the COVID-19 cocktail, she is also on cefepime. Lovenox 40 mg subcu daily. Patient had Moraxella growing out of her sputum on 08/13 and 08/05. Patient was reevaluated today on 08/16/2021, remains in the ICU, intubated and m echanically ventilated. Patient is on assist control rate of 26 tidal volume 325 PEEP of 16 FiO2 75%, ABG showed a pO2 of 73 pCO2 87 pH of 7.24 hence her respiratory rate was increased to 32. Patient remains on propofol at 50 fentanyl at 0.5 mcg/kg/h, she is not requiring Nimbex. Patient had a relatively elevated inflammatory markers including LDH of 766 and C-reactive protein of 18.7. Chest x-ray is not showing much of a change, continues to have bilateral interstitial infiltrates. WBC count showed the 15.7, hemoglobin 11.3 ID d-dimer is 1.12 Reevaluated today on 08/17/2021, patient remains in the ICU, intubated and mechanically ventilated. Patient is scheduled to undergo tracheostomy and PEG tube placement today. She is presently on assist control rate of 3 to tidal volume 325 FiO2 65% and PEEP of 16 she remains on fentanyl at 1 mcg/kg/h propofol at 20 mcg/kg/m patient is on enteral feeding but it is presently on hold for her tracheostomy and PEG tube placement. Chest x-ray continues to show diffuse pneumonic process/ARDS. ABG this morning on 50% showed a pO2 of 52 pCO2 of 72 pH of 7.32, hence FiO2 was increased up to 65%. CBC is relatively unremarkable, sodium is 146 renal profile showed a BUN of 89 creatinine of 1.15. LDH is 509 and C-reactive protein is 8.7. Reevaluated today on 08/18/2021, patient remains in the ICU, intubated and mechanically ventilated. Patient is on assist control rate of 3 to tidal volume 325 FiO2 70% PEEP of 16. ABG is marginal with a pO2 of 60 pCO2 of 70 pH of 7.32, hence no changes were made on her ventilator settings. Patient remains on a fall at 50 mcg/kg/m fentanyl 1 mcg/kg/h she is on D5 4500 mL per hour. CBC is relatively unremarkable hemoglobin is 10.1 electrolytes and renal profile are normal. Patient was seen by general surgery yesterday, and could not pass a scope to be able to perform at PEG tube placement. Hence the patient is scheduled today for tracheostomy, maybe PEG tube placement could be done today in the operating room. At any rate patient is not ready for any weaning, and apparently the family had no problem proceeding with tracheostomy and PEG tube placement. Her overall clinical status remains marginal at best. Reevaluated today on 08/19/2021, patient remains in the ICU, intubated and mecha nically ventilated. Patient is on assist control rate of 32, tidal volume 325 and today I have increased the volume to 400 mostly because of ongoing cough leak from the new tracheostomy she is on 90% FiO2, and PEEP of 16. Chest x-ray continues to show bilateral infiltrates, not much of a change. Patient underwent uneventful tracheostomy yesterday. Her ABG this morning showed a pO2 of 74 pCO2 of 63 pH of 7.35, and not much of a change on the ventilator settings except increasing the tidal volume up to 400. I did cut down her FiO2 to 70%, and instructed nursing to keep her O2 saturation between 89 and 91%. She is on propofol at 25 mcg/kg/m fentanyl 1 mcg/kg/h she is also on Nimbex, and on IV fluid 0.9 normal saline at 20 mL per hour. Patient is scheduled to have a PICC line today. And will DC the central line. After a PICC line placement. Patient remains on enteral feeding via orogastric tube, receiving vital AF and 31 mL per hour. Electrolytes and renal profile are normal today. Remains on the COVID-19 cocktail including ascorbic acid, she is also on Decadron 6 mg IV push daily, Lovenox 40 mg subcu daily, Protonix 40 mg daily IV push, zinc, patient is also on cefepime for underlying Moraxella catarrhalis pneumonia. Reevaluated today on 08/20/2021, patient remains in the ICU, intubated and mechanically ventilated. She is on assist control rate of 3 to tidal volume 400 FiO2 75% PEEP of 16. ABG showed a pO2 of 54 DC O2 of 45 pH of 7.46, hence The patient on FiO2 of 75%, and no other vent changes were made. Patient continues to have tracheostomy, she underwent tracheostomy on 08/17/21, minimal air leak noted from the tracheostomy, however seems to be improving, and she is achieving near her septal volumes. Patient is on fentanyl at 20 mcg/kg/h propofol 25 mc g/kg/m and she is on vital AF. Rate 34. Patient is not on any paralytics. Hence I would assess mental status hopefully today of or possibly a lower dose of sedation. CBC is relatively normal hemoglobin is 9.5. Electrolytes are normal, BUN is 64 creatinine 0.97. Patient is receiving enteral feeding. Remains on the COVID-19 cocktail including Decadron 6 mg IV push daily Lovenox 40 mg subcu daily Protonix 40 mg IV push daily and she is also on vitamin C. Remains on cefepime for underlying Moraxella catarrhalis pneumonia. Reevaluated today on 08/21/2021, patient remains in the ICU intubated and mechanically ventilated. She is on assist control rate of 30 tidal volume 400 FiO2 is at 80% and PEEP is at 16 after reviewing her ABG which showed a pO2 of 65 pCO2 45 pH of 7.44 I recommended decreasing FiO2 to 70%. Patient did not tolerate higher PEEP/18. Hence kept on a PEEP of 16. Patient remains on propofol at 20 fentanyl at 0.5, and she is not on Nimbex. Patient is arousable she opens her eyes only. But does not follow any other instructions. Her electrolytes are normal BUN is 62 creatinine 1.01 blood pressure seems to be high S1 as the patient has lower sedation and this was the dose of propofol goes down, hence I recommended adding clevidipine's to maintain adequate blood pressure hopefully 150 systolic. Chest x-ray continues to be about the same showing bilateral infiltrates. Medications list reviewed patient is on albuterol HFA, vitamin C, cefepime 1 g every 12 hours, she is on Peridex, vitamin D, Celebrex was added today, Decadron 6 mg IV push daily NovoLog insulin and Levemir insulin. Levothyroxine 100 g daily Protonix 40 mg IV push daily and she is on zinc. On today's evaluation of 08/31/2021, I'm seeing the patient for a follow-up. Remains in ARDS follows COVID 19 related pneumonia. The patient remains sedated on propofol which is running at 25 mg/kg/m. She is off paralytics and she was also taken off fentanyl. He remains essentially the same ventilator settings , she remains on assist control mode at the rate of 32, tidal volumes of 400, FiO2 is currently at 60% with a PEEP of 20. Peak airway pressures on a mechanical ventilator is 40 on today's evaluation. The static pressure is 38, and the patient continues to have some leak around the tracheostomy tube and the leak is estimated to be around 50 mL based on returned tidal volume. The chest x-ray is showing stable bilateral lower lobe pulmonary infiltrates and the tracheostomy tube is in a good location. The last chest x-ray was from 08/29/2021. Note that the patient did have Moraxella catarrhalis and her sputum earlier and this was treated. The patient continues to be on diuretics and the patient is receiving Lasix 40 mg IV every 12 hours and the patient has been neg ative fluid balance of at least 1.1 L over the past 24 hours. Weight is currently down to 100 kg which is 5 kg last or the past few days. Meanwhile, the rest of the labs from today shows a blood gases of pH of 7.37 with a pCO2 of 54 and pO2 of 68 and this was on FiO2 of 50%. White cell count 7.6 with a hemoglobin of 10.3, the creatinine is at 1.34 with a mean of 66 and this has been essentially stable, serum bicarb is slightly higher why the patient is being diuresis and the bicarb currently is at 32 with a sodium level of 143. She remains on propofol and triglyceride level was at 262. Liver function tests were normal from yesterday. Her most recent pro-calcitonin level was from 08/12/2021 and has not been checked since. On a separate note, the repeat a sputum sample is showing staph aureus. She remains on Levemir insulin 10 units at bedtime and 30 units in the morning along with a sliding scale coverage. She is on Lovenox 40 mg subcu for DVT prophylaxis. IV fluids are currently at KVO. Enterofeeding is in the form of vitamin AF at the rate of 28 mL an hour which is currently at goal. Reevaluated today on 09/01/2021, patient remains in ICU, intubated and mechanically ventilated. She is on assist control rate of 3 to tidal volume 400 FiO2 90% and PEEP remains at 20. Apparently last night the patient had an episode of unresponsiveness, and she basically arrested. Her down time was 3 minutes, patient responded to one dose of epinephrine, and 1 round of CPR/2 minutes. Today the patient is sedated, she is on hardly any propofol at 50 mcg/m, she is on enteral feeding. She remains on vital AF at 28 mL per hour. Remains on Lasix and on Decadron. Her mental status is extremely poor, and it was even poor prior to her cardiac arrest yesterday. Looking at the events from yesterday, patient may have developed some mucus plugging in the tracheostomy tube, and at one point she was difficult to ventilate or back, there is also some difficulty introducing a suction catheter through the tracheostomy tube. Patient had a brief cardiac arrest, however the obstruction resolved during the code. The [facility] see count today is 10.9 hemoglobin 11.1. ABG is marginal with a pO2 of 69 pCO2 of 66 pH of 7.32 and this was on the 100%. Electrolytes are normal BUN is 69 creatinine is 1.27, not much mold insert changer the last few days. X- ray was reviewed, bilateral infiltrates persists. Medications parra, patient remains on the COVID-19 cocktail. On Decadron 6 mg IV push daily Lasix 20 mg IV push every 12 hours. Insulin as per protocol. Levothyroxine Protonix 40 mg IV push daily. Norepinephrine if needed, not on any antibiotics presently. Sputum did show MSSA., At one point she had Moraxella catarrhalis, and I believe both with treated, no need to restart antibiotics at this point. Reevaluated today on 08/29/21, patient remains in the ICU, intubated and mechan ically ventilated. Remains on assist control rate of 3 to tidal volume 400 FiO2 65% PEEP remains at 20. Patient is not making much of any improvement. Remains on fentanyl 0.5 mcg/kg/h propofol 60 mcg/kg/m, remains on enteral feeding via PEG tube using vital AF at 28 mL per hour. Patient had to go back on sedation last night, she became extremely agitated, tachypneic, tachycardic, restless, but no purposeful movement noted off sedation. She is back on propofol and fentanyl, seems to be calm now. And her chest x-ray his condition reviewing to show worsening infiltrates bilaterally. Not much of a change noted in the last 24 hours. WBC count is 9.7 hemoglobin is 10.3. ABG showed a pO2 of 52 pCO2 55 pH of 7.42 basic metabolic profile is normal bicarb is 35 BUN is 73 creatinine is 1.30 hence I'm cutting down on her diuresis. She will go down to Lasix 40 mg IV push daily instead of twice a day. Remains on Lovenox 40 mg subcu daily remains on insulin she is on Protonix, Decadron 6 mg IV push daily and she is on the COVID-19 cocktail. Lovenox 40 mg subcu daily Objective - Vital Signs Vital signs: Vital Signs Temp 97.1 F L 09/02/21 04:00 Pulse 87 09/02/21 10:00 Resp 34 H 09/02/21 10:00 BP 96/62 09/02/21 07:00 Pulse Ox 88 L 09/02/21 10:00 Intake & Output 09/01/21 09/02/21 09/02/21 18:59 06:59 18:59 Intake Total 809.818 911.292 403.870 Output Total 1075 1035 565 Balance -265.182 -123.708 -161.130 Weight 99.9 kg Intake: IV 253 276 92 Pressure Bag 0.9% Sodium 33 36 12 Chloride @ 3mL/hr Sodium Chloride 0.9% 1, 220 240 80 000 ml @ 20 mls/hr IV . Q24H [facility] Rx#:[id number] Intake, IV Titration 58.818 209.292 169.870 Amount fentaNYL (PF). 1,000 mcg 19.421 In Sodium Chloride 0.9% 80 ml @ 0.5 MCG/KG/HR 4. 795 mls/hr IV [id number] [facility] Rx#:[id number] propofoL 1,000 mg In 58.818 209.292 150.449 Empty Bag 1 bag @ Titrate IV .Q0M [facility] Rx#: [id number] Tube Feeding 308 336 112 Other 190 90 30 Output: Urine 1075 1035 565 Other: Voiding Method Indwelling Catheter Indwelling Catheter Indwelling Catheter ABP, PAP, CO, CI - Last Documented Arterial Blood Pressure 107/46 - Exam Physical Exam: Revealed a 76-year-old female sedated, Tracheostomy is intact. Head: Atraumatic, normocephalic. Tracheostomy is intact. HEENT:[Neck is supple.] [No neck masses.] [No thyromegaly.] [No JVD.] Chest: Crackles at the bases no rhonchi and no wheezes Cardiac Exam: Distant S1 and S2, no S3 gallop. Abdomen: [Obese, Soft, nontender, no megaly, no rebound, no guarding, normal bowel sounds.] Extremities: [No clubbing, 1+ bipedal edema, no cyanosis.] Neurological Exam: Opens eyes only but does not respond to any other stimuli. No purposeful responses are improvement. Psychiatric: Could not assess. Skin: No rashes. - Labs CBC & Chem 7: 09/02/21 03:45 09/02/21 03:45 Labs: Abnormal Lab Results - Last 24 Hours (Table) 09/01/21 09/01/21 09/01/21 Range/Units 11:15 17:46 23:32 RBC (3.80-5.40) m/uL Hgb (11.4-16.0) gm/dL Hct (34.0-46.0) % RDW (11.5-15.5) % Eosinophils # (0-0.7) k/uL ABG pCO2 (35-45) mmHg ABG pO2 (83-108) mmHg ABG HCO3 (21-25) mmol/L ABG Total CO2 (19-24) mmol/L ABG O2 Saturation (94-97) % Carbon Dioxide (22-30) mmol/L BUN (7-17) mg/dL Creatinine (0.52-1.04) mg/dL Glucose (74-99) mg/dL POC Glucose (mg/dL) 224 H 119 H 115 H (75-99) mg/dL Total Protein (6.3-8.2) g/dL Albumin (3.5-5.0) g/dL 09/02/21 09/02/21 09/02/21 Range/Units 03:45 03:45 04:55 RBC 3.36 L (3.80-5.40) m/uL Hgb 10.3 L (11.4-16.0) gm/dL Hct 32.0 L (34.0-46.0) % RDW 16.0 H (11.5-15.5) % Eosinophils # 1.1 H (0-0.7) k/uL ABG pCO2 55 H (35-45) mmHg ABG pO2 52 L* (83-108) mmHg ABG HCO3 36 H (21-25) mmol/L ABG Total CO2 37 H (19-24) mmol/L ABG O2 Saturation 88.4 L (94-97) % Carbon Dioxide 35 H (22-30) mmol/L BUN 73 H (7-17) mg/dL Creatinine 1.30 H (0.52-1.04) mg/dL Glucose 119 H (74-99) mg/dL POC Glucose (mg/dL) (75-99) mg/dL Total Protein 6.2 L (6.3-8.2) g/dL Albumin 2.8 L (3.5-5.0) g/dL Assessment and Plan Assessment: Impression: Acute hypoxic respiratory failure secondary to COVID-19 pneumonia, patient was on baricitinib and this was discontinued because of the Moraxella infection noted. Fully treated. Patient was intubated on 08/05/2021, developed ARDS from COVID-19 pneumonia. Remains in full blown ARDS. Continues to have elevated static pressures. Patient is status post tracheostomy, overall the patient is not doing well, and I believe her prognosis is extremely poor. Not to mention the patient had an episode of cardiac arrest yesterday, and that basically is making the picture even worse. I strongly recommending discussing CODE STATUS with family and possibly go to comfort care measures. ARDS secondary to COVID-19 pneumonia Elevated inflammatory markers second to COVID-19 pneumonia Benign essential hypertension Suspect metabolic encephalopathy secondary to COVID-19 pneumonia, also suspect anoxic brain injury. 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 Status post cardiac arrest/3 minutes of CPR with return of spontaneous circulation. On 08/31/21. Recommendations: Continue ventilatory support , rate of 32 volume 400 FiO2 65%, PEEP remains 20. And her O2 saturations are marginal at 91%. Continues to have high peak airway pressure and high plateau pressures. Continue nutritional support/enteral feeding. Continue COVID-19 cocktail Continue Decadron. Patient remains critically ill. Prognosis remains poor and guarded. Her overall picture is extremely poor. Will eventually discuss with the family CODE STATUS again, I believe were dealing with mostly a medical futility situation Critical care time is over 30 minutes. Time with Patient: Greater than 30
--- NOTE | 2021-09-02 11:14 | P.PN ---
Subjective This is a 76-year-old white female who not been seen in our office for over a year. He came emergency room with cough congestion dyspnea and weakness and fatigue for several weeks. She tested positive for cover a week ago with a home test per the emergency room physician. Per the ER physician she not been vaccinated for current receive any [place] and treatment. She indicates shortness of breath had gotten worse. She denied any fevers severe headache chest pain or pressure. She was seen emergency room. She was on a BiPAP at this time in the intensive care unit.. Her conversation is limited by this. 08/06/2021: Patient is now intubated and sedated/paralyzed. This was done approximately 8 PM last night. She has COVID-19 pneumonia. She remains afebrile. Pulse is somewhat bradycardic over the past 18 hours. Respiratory rate is mechanically ventilated. Blood pressure is stable to this time. Labs show leukocytosis with a WBC count of 15.4 hemoglobin was 12 3 platelets are 113. There is an absolute neutrophilia at 14. Blood gases show pH 7.41 with a P CO2 of 40 and a PO2 of 78. Chemistries essentially normal slightly elevated BUN 21 creatinine 0.78. Glucoses are better controlled. She was placed on insulin drip yesterday. Cultures no growth after 24 hours and the blood, sputum culture pending. Chest x-ray shows bilateral multifocal confluent opacities consistent COVID-19 infection. Improved aeration suggesting improving. He has orders for Ventolin HFA inhaler, remains on vitamin C vitamin D, along with the dexamethasone. She is receiving Baricitnib all for Covid. She is paralyzed and Nimbex and remains on propofol for sedation. Staff indicated tube feeds may start soon. 08/07/2021:This is a 76-year-old female who presented to emergency room with cough, congestion, dyspnea and weakness and fatigue over several weeks. Approximately week ago patient took a home Covid test which indicated that she was positive. She has not received Covid vaccine or treatment for the positive Covid test. When symptoms worsened she decided to present to the ER for evaluation and treatment. She was initially placed on BiPAP in the intensive care unit and subsequently been intubated. She is currently paralyzed with c isatracurium, sedated with propofol and utilizing Toradol IV push for pain management. Currently mechanically ventilated on 80% FiO2. Patient is afebrile 96.9, respiratory rate of 26, blood pressure is stable at 109/51, maintain oxygen saturation of 90% and entitle CO2 of 28. Most recent set of vital signs WC count of 15.5, hematocrit of 35.6, hemoglobin 12.0, platelet count 119. Chemistry panel reveals a sodium 138, potassium 3.8, BUN of 19, creatinine 0.72, GFR 83, AST of 99, ELT 106, alk phos 131, LDH 847. TSH of 8.37. T4 0.5, pro- calcitonin 0.34 08/08/2021 remains mechanical ventilator-dependent, FiO2 decreased to 65%, PEEP remains at 20. Continues on Nimbex and diprovan drips. Chest x-ray reported patchy bilateral infiltrate with diffuse interstitial pattern, tiny right-sided pleural effusion, received Lasix. Maintained on Rocephin (Moraxella catarrhalis in the sputum) , Covid cocktail with Baricitinib discontinued. Blood sugars elevated. Afebrile, WBC 13.3. Pro-calcitonin 0.34. 08/09/2021 continues on FiO2 65% with PEEP of 20, Nimbex and diprovan drips. Chest x-ray reporting persistent patchy bilateral infiltrate with diffuse interstitial pattern. Received additional Lasix today Blood sugars elevated, improving, A1c 8.4. Afebrile, WBC 14.3. D-dimer 0.77, ferritin increased to 2512, LDH decreased to 606, CRP increased to 21.2. LFTs decreasing with the exception of alkaline phosphatase, increased to 171. ProBNP 453. Receiving tube feeds to call, tolerating well with minimal to no residuals, stooling. 08/10/2021 remains vent dependent, FiO2 60%/+18 of PEEP. Maintained on Nimbex and diprovan drips. Chest x-ray noted, unchanged. Currently afebrile, T-max 99.1, WBC trending down, 12.7. BUN 24, and 0.74. Repeat pro-calcitonin 0.31. Additional Levemir added to med regimen yesterday, Blood sugars controlled. Received Lasix IV push yesterday again, diuresed well with 24-hour I&O reflecting a negative fluid balance. Sodium within normal limits, 142. 08/11/2021 yesterday patient of placed on Nimbex holiday, during the night unable to tolerate became asynchronous with the ventNimbex resumed. Diprovan drip continues. Maintained on FiO2 65% with PEEP decreased to 17. Maintained on Rocephin ,Covid cocktail. Chest x-ray reporting stable diffuse bilateral infiltrate. Inflammatory markers decreasing.Tolerating tube feeds minimal to no residual. Levemir increased yesterday with blood sugars controlled. Afebrile. 08/12/2021 patient was given another paralytic holiday yesterday and continues off of Nimbex. During the night, difficulty maintaining O2 sats, cuff leak discovered, required higher FiO2. Maintained on diprovan. Currently FIO2 90%, PEEP of 16. Chest x-ray reporting bilateral moderate pulmonary edema, possibly worsening, antibiotics adjusted, now on cefepime. Maintained on Covid cocktail. Blood sugars controlled. Renal function stable. 08/15/2021 remains vent dependent, FiO2 75%/+16 of PEEP. Maintained on diprovan and fentanyl drips. Currently off paralytics. Sedation holiday attempted yesterday with minimal improvement of mental status, no response to any stimuli reported. Chest x-ray reporting persistent bilateral airspace disease. Continues on cefepime. Tolerating tube feeds at goal, with minimal to no residuals, blood sugars controlled. Inflammatory markers mildly increased. 08/16/2021 remains vent dependent, FiO2 65%/+16 of PEEP. Chest x-ray reporting diffuse interstitial and alveolar infiltrates. Maintained on diprovan and fentanyl drips. Surface Hydrologist currently discussing treatment of trach and peg with family. T-max 99.1, WBC 15.7. D-dimer, CRP decreased, LDH increased. 08/17/2021 vent dependent, FiO2 50%/+16 of PEEP. Chest x-ray reporting diffuse interstitial and alveolar infiltrates. Tube feeds and lovenox on hold. Maintained on IV fluid hydration D5/45. Scheduled for trach and peg today. T-max 99.7, WBC 13.5. Creatinine increased up to 1.15. 08/18/2021 Remains vent dependent, FiO2 70+16 of PEEP.Maintained on diprovan, fentanyl. PEG tube attempted yesterday, surgeon unable to pass scope. Patient is scheduled for tracheostomy and potential PEG tube placement today. 08/19/2021 Tracheostomy placed yesterday. Cuff leak present, TV increased. Maintained on 90% FiO2/+16 of PEEP. Chest x-ray reporting bilateral infiltrates.Continues on Nimbex, fentanyl and diprovan. PICC line placed. Tolerating tube feeds via OG of vital AF at goal of 31ml per hour. Sodium normalized, renal function stable. Blood sugars better controlled. 08/20/2021: Patient remains afebrile. She continues to be mechanically ventilated through her tracheostomy tube. Blood pressure stable. She remains on fentanyl, propofol, and cefepime IVs along with the oral tube feeds. Curr ently patient's on an FiO2 of 75%. PEEP is 16. Labs show WBC count 9.5. Blood gases today show pH 7.46 with PCO2 45 and a PO2 of 54. Glucose over the past 24 hours is been between 1:30 and 117. Chest x-ray she shows correlate for pneumonia and ARDS. 08/21/2021: Patient remains sedated with tracheostomy tube. A PEG tube placement is planned for tomorrow. She is on oral gastric feeding tube at goal at this time. She is afebrile. Vitals are stable. She remains mechanically ventilated. She currently remains on fentanyl and propofol, the doses have been reduced. Staff report she'll open her eyes but is not following commands at this time. She is a Sosa catheter to gravity. There's been no bowel movement. Multiple days. She remains on the COVID-19 cocktail including Decadron, L ovenox, Protonix, vitamin C. She remains on cefepime antibiotics for possible Moraxella pneumonia. 08/29/2021: Patient remains sedated with tracheostomy tube. PEG tube placement done 08/22/2021. She is afebrile. She remains mechanically ventilated. FIO2 is 60%. PEEP 20. She currently remains on Fentanyl and propofol, Staff report she'll open her eyes but is not following commands at this time. She is a Sosa catheter to gravity. . She remains on the COVID-19 cocktail including Decadron, Lovenox, Protonix, vitamin C. she is NOT improving. 08/30/2021:She is afebrile. She remains mechanically ventilated. the patient remains intubated on a mechanical ventilator. Tracheostomy placed on 08/24/2021 .Peg Tube feeds continue. She remains sedated and she is on propofol Fentanyl was turned off yesterday. The patient is currently on no paralytics. FiO2 is currently at 60% with a PEEP of 20. she is on no antibiotics currently. Blood gas that shows a pH of 7.4 with a pCO2 of 50 and pO2 of 75. The white cell count today is at 8.1 with a hemoglobin of 10 and a platelet count of 160. Electrolytes, show the creatinine is 1.29 with a BUN of 65, She was started on diuretics of Lasix 40 mg IV every 12 hours. The patient is currently on Decadron which is running at 6 mg IV every 24 hours. The patient is also on Levemir insulin at a dose of 30 units in the morning and 10 units in the evening along with a slight scale coverage. IV fluids are currently at KVO. Her husand was at bedside and I was able to speak to him as t othe care home outlook for Malinda. The fact we have see NO improvement in her overall condition is troubling and a poor prognostic indicator. he is now arare of this and of her poor outcome likelyhood. 08/31/2021::the patient is afebrile. She remains mechanically ventilated. the patient remains intubated on a mechanical ventilator. Tracheostomy placed on 08/24/2021 .Peg Tube feeds continue. She remains sedated and she is on propofol, The patient is currently on no paralytics. FiO2 is currently at 60% with a PEEP of 20. she is on no antibiotic s currently. Blood gas that shows a pH of 7.4 with a pCO2 of 54 and pO2 of 68. The white cell count today is at 7.6 with a hemoglobin of 10.3 and a platelet count of 161. Electrolytes, show the creatinine is 1.34 with a BUN of 66, The patient is currently on Decadron which is running at 6 mg IV every 24 hours. The patient is also on Levemir insulin at a dose of 30 units in the morning and 10 units in the evening along with a slight scale coverage. IV fluids are currently at KVO. Her daughter was at bedside and I was able to speak to her about patrol agent outlook for Malinda. SHe [facility]. 09/01/2021:Overnight, the patient had went in asystole and needed chest compressions and other support to resuscitate her.This morning, the patient is afebrile. She remains mechanically ventilated. the patient remains intubated on a mechanical ventilator. Tracheostomy placed on 08/24/2021 .Peg Tube feeds continue at goal.She is now on we referred to help with hypotension. She remains sedated on propofol, The patient is currently on no paralytics. FiO2 is currently at 60% with a PEEP of 20. she is on no antibiotics currently. Vitals stable. Blood gas that shows a pH of 7.32 with a pCO2 of 66 and pO2 of 69. The white cell count today is at 10.9 with a hemoglobin of 11. and a platelet count of 171. Electrolytes, show the creatinine is 1.27 with a BUN of 69, Sputum culture is positive for staph aureus. The patient is currently on Decadron which is running at 6 mg IV every 24 hours. The patient is also on Levemir insulin at a dose of 30 units in the morning and 10 units in the evening along with a slight scale coverage. IV fluids are curre ntly at KVO. 09/02/2021: Patient remains in intubated. She is now sedated with fentanyl. This is been restarted. She remains on propofol as well. Currently FiO2 is now 65% with a PEEP of 20. She is making no progress. She became agitated And tachycardic requiring the need for fentanyl be restarted. Currently heart rate remains normal, respiratory rate is mechanically ventilated but controlled. Blood pressure stable. ABG showed pH 7.42 with a PCO2 of 55 and a PO2 of 52 today. Chemistries are stable. Glucose remains improved today. CBC is normal W [place] 9.7. Hemoglobin is 10.3 today. Critical care note reviewed for today. Chest x-ray does not show much change. It says "correlate for pneumonia and ARDS, edema" Patient remains on tube feeds. She is on Levemir insulin 10 units daily at bedtime and 30 units every morning. She has copious cocktail ordered, she remains on dexamethasone 6 mg IV push daily. Lovenox 40 mg subcutaneous daily for anticoagulation. The rest of her medications remain the same at this time. Objective - Vital Signs Vital signs: Vital Signs Temp 97.1 F L 09/02/21 04:00 Pulse 87 09/02/21 10:00 Resp 34 H 09/02/21 10:00 BP 96/62 09/02/21 07:00 Pulse Ox 88 L 09/02/21 10:00 Intake & Output 09/01/21 09/02/21 09/02/21 18:59 06:59 18:59 Intake Total 809.818 911.292 403.870 Output Total 1075 1035 565 Balance -265.182 -123.708 -161.130 Weight 99.9 kg Intake: IV 253 276 92 Pressure Bag 0.9% Sodium 33 36 12 Chloride @ 3mL/hr Sodium Chloride 0.9% 1, 220 240 80 000 ml @ 20 mls/hr IV . Q24H [facility] Rx#:[id number] Intake, IV Titration 58.818 209.292 169.870 Amount fentaNYL (PF). 1,000 mcg 19.421 In Sodium Chloride 0.9% 80 ml @ 0.5 MCG/KG/HR 4. 795 mls/hr IV .[id number] [facility] Rx#:[id number] propofoL 1,000 mg In 58.818 209.292 150.449 Empty Bag 1 bag @ Titrate IV .Q0M [facility] Rx#: [id number] Tube Feeding 308 336 112 Other 190 90 30 Output: Urine 1075 1035 565 Other: Voiding Method Indwelling Catheter Indwelling Catheter Indwelling Catheter ABP, PAP, CO, CI - Last Documented Arterial Blood Pressure 107/46 - Exam GENERAL: elderly female currently with tracheostomy being mechanically vent ilated and sedated. NECK: Tracheostomy tube in place. Oral feeding tube in place. LUNGS: Breath sounds coarse bilaterally and mechanically ventilated HEART: Regular rate and rhythm without murmurs, rubs or gallops.S1S2 Normal ABDOMEN: Soft, nontender, normoactive bowel sounds. No guarding, no rebound. No masses appreciated. PEG in place LUQ EXTREMITIES:no pitting or edema. No clubbing or cyanosis. NEUROLOGICAL: Sedated SKIN: Warm, Dry, normal turgor, no rashes or lesions noted. - Labs CBC & Chem 7: 09/02/21 03:45 09/02/21 03:45 Labs: Abnormal Lab Results - Last 24 Hours (Table) 09/01/21 09/01/21 09/01/21 Range/Units 11:15 17:46 23:32 RBC (3.80-5.40) m/uL Hgb (11.4-16.0) gm/dL Hct (34.0-46.0) % RDW (11.5-15.5) % Eosinophils # (0-0.7) k/uL ABG pCO2 (35-45) mmHg ABG pO2 (83-108) mmHg ABG HCO3 (21-25) mmol/L ABG Total CO2 (19-24) mmol/L ABG O2 Saturation (94-97) % Carbon Dioxide (22-30) mmol/L BUN (7-17) mg/dL Creatinine (0.52-1.04) mg/dL Glucose (74-99) mg/dL POC Glucose (mg/dL) 224 H 119 H 115 H (75-99) mg/dL Total Protein (6.3-8.2) g/dL Albumin (3.5-5.0) g/dL 09/02/21 09/02/21 09/02/21 Range/Units 03:45 03:45 04:55 RBC 3.36 L (3.80-5.40) m/uL Hgb 10.3 L (11.4-16.0) gm/dL Hct 32.0 L (34.0-46.0) % RDW 16.0 H (11.5-15.5) % Eosinophils # 1.1 H (0-0.7) k/uL ABG pCO2 55 H (35-45) mmHg ABG pO2 52 L* (83-108) mmHg ABG HCO3 36 H (21-25) mmol/L ABG Total CO2 37 H (19-24) mmol/L ABG O2 Saturation 88.4 L (94-97) % Carbon Dioxide 35 H (22-30) mmol/L BUN 73 H (7-17) mg/dL Creatinine 1.30 H (0.52-1.04) mg/dL Glucose 119 H (74-99) mg/dL POC Glucose (mg/dL) (75-99) mg/dL Total Protein 6.2 L (6.3-8.2) g/dL Albumin 2.8 L (3.5-5.0) g/dL Assessment and Plan (1) Acute respiratory failure with hypoxia Current Visit: Yes Status: Acute Code(s): J96.01 - ACUTE RESPIRATORY FAILURE WITH HYPOXIA SNOMED Code(s): 66454865 (2) Pneumonia due to COVID-19 virus Current Visit: Yes Status: Acute Code(s): U07.1 - COVID-19; J12.82 - PNEUM ONIA DUE TO CORONAVIRUS DISEASE 2018 SNOMED Code(s): 170104941897150263 (3) Hypoxia Current Visit: Yes Status: Acute Code(s): R09.02 - HYPOXEMIA SNOMED Code(s): 394916224 (4) Hypothyroidism, unspecified Current Visit: Yes Status: Acute Code(s): E03.9 - HYPOTHYROIDISM, UNSPECIFIED SNOMED Code(s): 16840436 (5) Mixed hyperlipidemia Current Visit: Yes Status: Acute Code(s): E78.2 - MIXED HYPERLIPIDEMIA SNOMED Code(s): 585137974 (6) Type 2 diabetes mellitus without complications Current Visit: Yes Status: Acute Code(s): E11.9 - TYPE 2 DIABETES MELLITUS WITHOUT COMPLICATIONS SNOMED Code(s): 871320154 Plan: I will defer to critical care/guitar technician while 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 She'll remain on her current medications. She'll continue on the current covid protocol, Continue dexamethasone, Lovenox, pantoprazole, levothyroxine, insulin scale, Levemir daily at bedtime PEG tube with feeds at goal possible plan for LTC ecf with trach in the future, however at this time she requires sedation Her outlook is poor.
[2021-09-02 11:17] VITALS: BMI 35.5
[2021-09-02 11:52] LABS: Glucose,Whole Blood 134 mg/dL (75-99)
[2021-09-02 17:45] LABS: Glucose,Whole Blood 149 mg/dL (75-99)
[2021-09-02 21:28] LABS: Glucose,Whole Blood 120 mg/dL (75-99)
[2021-09-03] MEDS: ALBUTEROL HFA INHALER INHALATION SCH ×7 (00:04→23:32)
[2021-09-03] MEDS: INSULIN ASPART (NovoLOG) 100 UNIT/ML VIAL SQ SCH ×4 (00:12→17:55)
[2021-09-03 00:13] LABS: Glucose,Whole Blood 104 mg/dL (75-99)
[2021-09-03] MEDS: fentaNYL (PF). 1,000 MCG in SODIUM CHLORIDE 0.9% 80 ML IV SCH ×3 (01:48→20:00)
[2021-09-03 03:27] LABS: HCT 31.5 % (34.0-46.0); HGB 9.8 gm/dL (11.4-16.0); Hypochromasia Marked; MCH 30.5 pg (25.0-35.0); MCHC 31.2 g/dL (31.0-37.0); MCV 97.6 fL (80.0-100.0); Macrocytosis Slight; Mean Platelet Volume 8.7; Platelet Count 155 k/uL (150-450); Poikilocytosis Slight; RBC 3.23 m/uL (3.80-5.40); WBC 9.7 k/uL (3.8-10.6)
[2021-09-03 03:34] LABS: Albumin 2.6 g/dL (3.5-5.0); Calcium 9.4 mg/dL (8.4-10.2); Potassium 3.8 mmol/L (3.5-5.1); Total Bilirubin 0.5 mg/dL (0.2-1.3); Total Protein 5.8 g/dL (6.3-8.2)
[2021-09-03] MEDS: LEVOTHYROXINE 100 MCG TAB OG-TUBE SCH (04:25)
[2021-09-03] MEDS: SODIUM CHLORIDE 0.9% 1,000 ML IV SCH ×2 (04:26→22:39)
[2021-09-03 04:29] LABS: Band Neutrophils % 15 %; Eosinophils # (M) 1.36 k/uL (0-0.7); Lymphocytes # (M) 0.87 k/uL (1.0-4.8); Metamyelocytes # (M) 0.29 k/uL (0); Metamyelocytes % 3 %; Monocytes # (M) 0.78 k/uL (0-1.0); Myelocytes % 1 %; Neutrophils % (M) 50 %; Nucleated Red Blood Cells 0 /100 WBC (0-0); Total Cells Counted 200
[2021-09-03 04:30] LABS: Toxic Granulation Present
[2021-09-03] MEDS ORDERED: POTASSIUM BICARB-CITRIC ACID 25 MEQ TABLET.EFF PO SCH (05:00)
[2021-09-03 05:57] LABS: ABG Base Excess 11.2 mmol/L; ABG HCO3 36 mmol/L (21-25); ABG Oxygen Saturation 91.9 % (94-97); ABG PCO2 57 mmHg (35-45); ABG PH 7.41 (7.35-7.45); ABG TCO2 38 mmol/L (19-24); Allen Test Performed? Yes
[2021-09-03 06:01] LABS: ABG PO2 59 mmHg (83-108)
[2021-09-03 06:20] LABS: Glucose,Whole Blood 86 mg/dL (75-99)
[2021-09-03] MEDS: INSULIN DETEMIR (LEVEMIR) 100 UNIT/ML SYR SQ SCH ×2 (06:20→22:39)
[2021-09-03] MEDS: ENOXAPARIN 40 MG/0.4 ML SYRINGE SQ SCH (08:47)
[2021-09-03] MEDS: CHLORHEXIDINE GLUCONATE 15 ML CUP MUCOUS MEM SCH ×2 (08:47→22:40)
[2021-09-03] MEDS: CHOLECALCIFEROL 125 MCG (5000 IU) TABLET PO SCH (08:48)
[2021-09-03] MEDS: ASCORBIC ACID 500 MG TAB PO SCH (08:48)
[2021-09-03] MEDS: DEXAMETHASONE SOD PHOSPHATE 10 MG/ML 1 ML VIAL IVP SCH (08:48)
[2021-09-03] MEDS: PANTOPRAZOLE 40 MG/10 ML VIAL IVP SCH (08:48)
[2021-09-03] MEDS: ZINC SULFATE 220 MG CAP PO SCH (08:48)
[2021-09-03] MEDS ORDERED: FUROSEMIDE 10 MG/ML 2 ML VIAL IV SCH (09:00)
--- NOTE | 2021-09-03 09:59 | P.PN ---
Subjective Progress Note Date: 09/03/21 Principal diagnosis: Acute hypoxic resp. failure second to COVID-19 pneumonia 08/14/2021, the patient's condition remains essentially unchanged. She has post COVID 19 related pneumonia with secondary ARDS and her oxygenation has remained unchanged and her ventilator settings have been essentially remained stable over the past several days. This morning, the patient remains sedated and she is currently on propofol running at a rate of 45 mcg/kg per minute. The patient is not paralyzed at this point in time. We should be able to cut down her sedation to a lower level at this point. Meanwhile, we are still allowed permissive hypercapnia. She is on low tidal volume mechanical ventilation with a tidal volume of 325, rate of 26, PEEP is at 60 with an FiO2 of 90%. Peak airway pressures 33. Static pressures 31 and all of these numbers are comparable to yesterday. The blood gas showed a pH of 7.37 with a pCO2 of 60 and pO2 of 60. She remains on IV cefepime as the cultures Moraxella in her sputum. Her respiratory secretions are scant at this point in time. She is afebrile. She is hemodynamic is stable. She remains on Decadron. Her mother markers have improved specially the LDH. Her CRP was still elevated at 23 however this was also downtrending. She remains on enteral feeding for nutritional support. She is receiving vital AF and she is currently ongoing. Urine output is adequate. Overall fluid balance over the past 24 hours has been +457 mL. No signs of any significant: Overload. Noted the patient has been intubated on 08/05/2021 and her progress has been essentially minimal at this point in time. Unable to do any further weaning from mechanical ventilator due to her poor oxygenation status. Chest x-ray from yesterday was noted. A repeat chest x-ray will be done today. Rest of the blood work essentially stable. She remains on Levemir insulin 30 units in the morning and 10 units in the evening and she is also on a sliding scale insulin coverage. She is also on Lovenox 40 mg subcu for DVT prophylaxis. IV fluids are currently at KVO. Reevaluated today on 08/15/2021, patient remains in the ICU, intubated and mechanically ventilated. She is presently on assist control rate of 26, tidal volume of 325 FiO2 75% PEEP 16. ABG earlier on 90% showed a pO2 of 85 pCO2 of 80 pH of 7.28. Patient is on propofol at 25 g per acute per minute, off Nimbex for now, not requiring any pressors, hemodynamically parra patient is doing well. Patient is on enteral feeding using vital AF 23 mL per hour. Today I suggested adding fentanyl for adequate ventilation and control agitation as propofol alone does not seem to be enough unless we have to increase the dose. Patient had a sedation holiday yesterday, and not much of an improvement noted in the mental status, and the patient would not respond to any stimuli. I suggested today to start increasing the dose of propofol as she seems to be tachypneic and tachycardic, and if not enough, will add fentanyl. But try to avoid Nimbex if possible. Chest x-ray continues to show bilateral interstitial infiltrates. Lines and tubes seem to be in proper position. Labs today WBC count 15.7 hemoglobin 11.2 d-dimer is 1.2, electrodes are normal except for slightly elevated sodium of 145 bicarb is 35 BUN is 69 creatinine 0.93. LDH is 679 C- reactive protein is 26.6 months much of a change in the last few days in both inflammatory markers. Patient remains on the COVID-19 cocktail, she is also on cefepime. Lovenox 40 mg subcu daily. Patient had Moraxella growing out of her sputum on 08/13 and 08/05. Patient was reevaluated today on 08/16/2021, remains in the ICU, intubated and m echanically ventilated. Patient is on assist control rate of 26 tidal volume 325 PEEP of 16 FiO2 75%, ABG showed a pO2 of 73 pCO2 87 pH of 7.24 hence her respiratory rate was increased to 32. Patient remains on propofol at 50 fentanyl at 0.5 mcg/kg/h, she is not requiring Nimbex. Patient had a relatively elevated inflammatory markers including LDH of 766 and C-reactive protein of 18.7. Chest x-ray is not showing much of a change, continues to have bilateral interstitial infiltrates. WBC count showed the 15.7, hemoglobin 11.3 ID d-dimer is 1.12 Reevaluated today on 08/17/2021, patient remains in the ICU, intubated and mechanically ventilated. Patient is scheduled to undergo tracheostomy and PEG tube placement today. She is presently on assist control rate of 3 to tidal volume 325 FiO2 65% and PEEP of 16 she remains on fentanyl at 1 mcg/kg/h propofol at 20 mcg/kg/m patient is on enteral feeding but it is presently on hold for her tracheostomy and PEG tube placement. Chest x-ray continues to show diffuse pneumonic process/ARDS. ABG this morning on 50% showed a pO2 of 52 pCO2 of 72 pH of 7.32, hence FiO2 was increased up to 65%. CBC is relatively unremarkable, sodium is 146 renal profile showed a BUN of 89 creatinine of 1.15. LDH is 509 and C-reactive protein is 8.7. Reevaluated today on 08/18/2021, patient remains in the ICU, intubated and mechanically ventilated. Patient is on assist control rate of 3 to tidal volume 325 FiO2 70% PEEP of 16. ABG is marginal with a pO2 of 60 pCO2 of 70 pH of 7.32, hence no changes were made on her ventilator settings. Patient remains on a fall at 50 mcg/kg/m fentanyl 1 mcg/kg/h she is on D5 4500 mL per hour. CBC is relatively unremarkable hemoglobin is 10.1 electrolytes and renal profile are normal. Patient was seen by general surgery yesterday, and could not pass a scope to be able to perform at PEG tube placement. Hence the patient is scheduled today for tracheostomy, maybe PEG tube placement could be done today in the operating room. At any rate patient is not ready for any weaning, and apparently the family had no problem proceeding with tracheostomy and PEG tube placement. Her overall clinical status remains marginal at best. Reevaluated today on 08/19/2021, patient remains in the ICU, intubated and mecha nically ventilated. Patient is on assist control rate of 32, tidal volume 325 and today I have increased the volume to 400 mostly because of ongoing cough leak from the new tracheostomy she is on 90% FiO2, and PEEP of 16. Chest x-ray continues to show bilateral infiltrates, not much of a change. Patient underwent uneventful tracheostomy yesterday. Her ABG this morning showed a pO2 of 74 pCO2 of 63 pH of 7.35, and not much of a change on the ventilator settings except increasing the tidal volume up to 400. I did cut down her FiO2 to 70%, and instructed nursing to keep her O2 saturation between 89 and 91%. She is on propofol at 25 mcg/kg/m fentanyl 1 mcg/kg/h she is also on Nimbex, and on IV fluid 0.9 normal saline at 20 mL per hour. Patient is scheduled to have a PICC line today. And will DC the central line. After a PICC line placement. Patient remains on enteral feeding via orogastric tube, receiving vital AF and 31 mL per hour. Electrolytes and renal profile are normal today. Remains on the COVID-19 cocktail including ascorbic acid, she is also on Decadron 6 mg IV push daily, Lovenox 40 mg subcu daily, Protonix 40 mg daily IV push, zinc, patient is also on cefepime for underlying Moraxella catarrhalis pneumonia. Reevaluated today on 08/20/2021, patient remains in the ICU, intubated and mechanically ventilated. She is on assist control rate of 3 to tidal volume 400 FiO2 75% PEEP of 16. ABG showed a pO2 of 54 DC O2 of 45 pH of 7.46, hence The patient on FiO2 of 75%, and no other vent changes were made. Patient continues to have tracheostomy, she underwent tracheostomy on 08/17/21, minimal air leak noted from the tracheostomy, however seems to be improving, and she is achieving near her septal volumes. Patient is on fentanyl at 20 mcg/kg/h propofol 25 mc g/kg/m and she is on vital AF. Rate 34. Patient is not on any paralytics. Hence I would assess mental status hopefully today of or possibly a lower dose of sedation. CBC is relatively normal hemoglobin is 9.5. Electrolytes are normal, BUN is 64 creatinine 0.97. Patient is receiving enteral feeding. Remains on the COVID-19 cocktail including Decadron 6 mg IV push daily Lovenox 40 mg subcu daily Protonix 40 mg IV push daily and she is also on vitamin C. Remains on cefepime for underlying Moraxella catarrhalis pneumonia. Reevaluated today on 08/21/2021, patient remains in the ICU intubated and mechanically ventilated. She is on assist control rate of 30 tidal volume 400 FiO2 is at 80% and PEEP is at 16 after reviewing her ABG which showed a pO2 of 65 pCO2 45 pH of 7.44 I recommended decreasing FiO2 to 70%. Patient did not tolerate higher PEEP/18. Hence kept on a PEEP of 16. Patient remains on propofol at 20 fentanyl at 0.5, and she is not on Nimbex. Patient is arousable she opens her eyes only. But does not follow any other instructions. Her electrolytes are normal BUN is 62 creatinine 1.01 blood pressure seems to be high S1 as the patient has lower sedation and this was the dose of propofol goes down, hence I recommended adding clevidipine's to maintain adequate blood pressure hopefully 150 systolic. Chest x-ray continues to be about the same showing bilateral infiltrates. Medications list reviewed patient is on albuterol HFA, vitamin C, cefepime 1 g every 12 hours, she is on Peridex, vitamin D, Celebrex was added today, Decadron 6 mg IV push daily NovoLog insulin and Levemir insulin. Levothyroxine 100 g daily Protonix 40 mg IV push daily and she is on zinc. On today's evaluation of 08/31/2021, I'm seeing the patient for a follow-up. Remains in ARDS follows COVID 19 related pneumonia. The patient remains sedated on propofol which is running at 25 mg/kg/m. She is off paralytics and she was also taken off fentanyl. He remains essentially the same ventilator settings , she remains on assist control mode at the rate of 32, tidal volumes of 400, FiO2 is currently at 60% with a PEEP of 20. Peak airway pressures on a mechanical ventilator is 40 on today's evaluation. The static pressure is 38, and the patient continues to have some leak around the tracheostomy tube and the leak is estimated to be around 50 mL based on returned tidal volume. The chest x-ray is showing stable bilateral lower lobe pulmonary infiltrates and the tracheostomy tube is in a good location. The last chest x-ray was from 08/29/2021. Note that the patient did have Moraxella catarrhalis and her sputum earlier and this was treated. The patient continues to be on diuretics and the patient is receiving Lasix 40 mg IV every 12 hours and the patient has been neg ative fluid balance of at least 1.1 L over the past 24 hours. Weight is currently down to 100 kg which is 5 kg last or the past few days. Meanwhile, the rest of the labs from today shows a blood gases of pH of 7.37 with a pCO2 of 54 and pO2 of 68 and this was on FiO2 of 50%. White cell count 7.6 with a hemoglobin of 10.3, the creatinine is at 1.34 with a mean of 66 and this has been essentially stable, serum bicarb is slightly higher why the patient is being diuresis and the bicarb currently is at 32 with a sodium level of 143. She remains on propofol and triglyceride level was at 262. Liver function tests were normal from yesterday. Her most recent pro-calcitonin level was from 08/12/2021 and has not been checked since. On a separate note, the repeat a sputum sample is showing staph aureus. She remains on Levemir insulin 10 units at bedtime and 30 units in the morning along with a sliding scale coverage. She is on Lovenox 40 mg subcu for DVT prophylaxis. IV fluids are currently at KVO. Enterofeeding is in the form of vitamin AF at the rate of 28 mL an hour which is currently at goal. Reevaluated today on 09/01/2021, patient remains in ICU, intubated and mechanically ventilated. She is on assist control rate of 3 to tidal volume 400 FiO2 90% and PEEP remains at 20. Apparently last night the patient had an episode of unresponsiveness, and she basically arrested. Her down time was 3 minutes, patient responded to one dose of epinephrine, and 1 round of CPR/2 minutes. Today the patient is sedated, she is on hardly any propofol at 50 mcg/m, she is on enteral feeding. She remains on vital AF at 28 mL per hour. Remains on Lasix and on Decadron. Her mental status is extremely poor, and it was even poor prior to her cardiac arrest yesterday. Looking at the events from yesterday, patient may have developed some mucus plugging in the tracheostomy tube, and at one point she was difficult to ventilate or back, there is also some difficulty introducing a suction catheter through the tracheostomy tube. Patient had a brief cardiac arrest, however the obstruction resolved during the code. The [facility] see count today is 10.9 hemoglobin 11.1. ABG is marginal with a pO2 of 69 pCO2 of 66 pH of 7.32 and this was on the 100%. Electrolytes are normal BUN is 69 creatinine is 1.27, not much change management the last few days. X- ray was reviewed, bilateral infiltrates persists. Medications parra, patient remains on the COVID-19 cocktail. On Decadron 6 mg IV push daily Lasix 20 mg IV push every 12 hours. Insulin as per protocol. Levothyroxine Protonix 40 mg IV push daily. Norepinephrine if needed, not on any antibiotics presently. Sputum did show MSSA., At one point she had Moraxella catarrhalis, and I believe both with treated, no need to restart antibiotics at this point. Reevaluated today on 09/02/21, patient remains in the ICU, intubated and mechan ically ventilated. Remains on assist control rate of 3 to tidal volume 400 FiO2 65% PEEP remains at 20. Patient is not making much of any improvement. Remains on fentanyl 0.5 mcg/kg/h propofol 60 mcg/kg/m, remains on enteral feeding via PEG tube using vital AF at 28 mL per hour. Patient had to go back on sedation last night, she became extremely agitated, tachypneic, tachycardic, restless, but no purposeful movement noted off sedation. She is back on propofol and fentanyl, seems to be calm now. And her chest x-ray his condition reviewing to show worsening infiltrates bilaterally. Not much of a change noted in the last 24 hours. WBC count is 9.7 hemoglobin is 10.3. ABG showed a pO2 of 52 pCO2 55 pH of 7.42 basic metabolic profile is normal bicarb is 35 BUN is 73 creatinine is 1.30 hence I'm cutting down on her diuresis. She will go down to Lasix 40 mg IV push daily instead of twice a day. Remains on Lovenox 40 mg subcu daily remains on insulin she is on Protonix, Decadron 6 mg IV push daily and she is on the COVID-19 cocktail. Lovenox 40 mg subcu daily Reevaluated today on 09/03/21, patient remains in the ICU intubated and mechanically ventilated, she is on assist control rate of 32, volume 400 FiO2 65% PEEP remains high at 20. ABG remains marginal with a pO2 of 59 pCO2 57 pH of 7.41. Chest x-ray from 09/02 continues to show bilateral infiltrates, not much of a change noted. Patient remains on multiple drips including propofol at 40, fentanyl at 1 mcg/kg/h, norepinephrine at 0.03 mcg/kg/m, she is on IV fluid at KVO, and she is receiving enteral feeding via PEG tube. Labs were reviewed, her electrolytes are abnormal with a sodium of 147 her renal profile showed a BUN of 76 creatinine of 1.19. WBC count is 9.7 hemoglobin is 9.8. Patient is not showing any signs of neurological recovery even in spite of holding sedation and assessment of mental status on a regular basis. Yesterday I discussed her status with the family including and daughter, and CODE STATUS was changed to DO NOT RESUSCITATE. Not deciding get on comfort care measures. Objective - Vital Signs Vital signs: Vital Signs Temp 97.8 F 09/03/21 04:00 Pulse 78 09/03/21 07:00 Resp 32 H 09/03/21 07:00 BP 93/50 09/03/21 03:30 Pulse Ox 92 L 09/03/21 07:00 Intake & Output 09/02/21 09/03/21 09/03/21 18:59 06:59 18:59 Intake Total 2908.495 3616.434 58.741 Output Total 1006 430 Balance 106.690 575.434 58.741 Weight 99.9 kg 99.9 kg Intake: IV 276 299 Pressure Bag 0.9% Sodium 36 39 Chloride @ 3mL/hr Sodium Chloride 0.9% 1, 240 260 000 ml @ 20 mls/hr IV . Q24H [facility]O Rx#:[id number] Intake, IV Titration 426.690 408.434 58.741 Amount Norepinephrine 4 mg In 230.456 Sodium Chloride 0.9% 250 ml @ 0.05 MCG/KG/MIN 19. 088 mls/hr IV .[id number] [facility]HRO Rx#:[id number] fentaNYL (PF). 1,000 mcg 76.241 95.261 In Sodium Chloride 0.9% 80 ml @ 0.5 MCG/KG/HR 4. 795 mls/hr IV .[id number] [facility] Rx#:[id number] propofoL 1,000 mg In 350.449 82.717 58.741 Empty Bag 1 bag @ Titrate IV .Q0M [facility]HRO Rx#: [id number] Tube Feeding 240 208 Other 170 90 Output: Urine 1005 430 Stool 1 Other: Voiding Method Indwelling Catheter Indwelling Catheter ABP, PAP, CO, CI - Last Documented Arterial Blood Pressure 116/47 - Exam Physical Exam: Revealed a 76-year-old female sedated, Tracheostomy is intact. Head: Atraumatic, normocephalic. Tracheostomy is intact. HEENT:[Neck is supple.] [No neck masses.] [No thyromegaly.] [No JVD.] Chest: Crackles at the bases no rhonchi and no wheezes Cardiac Exam: Distant S1 and S2, no S3 gallop. Abdomen: [Obese, Soft, nontender, no megaly, no rebound, no guarding, normal bowel sounds.] Extremities: [No clubbing, 1+ bipedal edema, no cyanosis.] Neurological Exam: Unresponsive to any stimuli, does not open eyes, does not have any purposeful movement. Psychiatric: Could not assess. Skin: No rashes. - Labs CBC & Chem 7: 09/03/21 03:10 09/03/21 03:10 Labs: Abnormal Lab Results - Last 24 Hours (Table) 09/02/21 09/02/21 09/02/21 Range/Units 11:50 17:44 21:27 RBC (3.80-5.40) m/uL Hgb (11.4-16.0) gm/dL Hct (34.0-46.0) % RDW (11.5-15.5) % Lymphocytes # (Manual) (1.0-4.8) k/uL Eosinophils # (Manual) (0-0.7) k/uL Metamyelocytes # (Man) (0) k/uL Myelocytes # (Manual) (0) k/uL ABG pCO2 (35-45) mmHg ABG pO2 (83-108) mmHg ABG HCO3 (21-25) mmol/L ABG Total CO2 (19-24) mmol/L ABG O2 Saturation (94-97) % Sodium (137-145) mmol/L Carbon Dioxide (22-30) mmol/L BUN (7-17) mg/dL Creatinine (0.52-1.04) mg/dL Glucose (74-99) mg/dL POC Glucose (mg/dL) 134 H 149 H 120 H (75-99) mg/dL Total Protein (6.3-8.2) g/dL Albumin (3.5-5.0) g/dL 09/03/21 09/03/21 09/03/21 Range/Units 00:12 03:10 03:10 RBC 3.23 L (3.80-5.40) m/uL Hgb 9.8 L (11.4-16.0) gm/dL Hct 31.5 L (34.0-46.0) % RDW 16.0 H (11.5-15.5) % Lymphocytes # (Manual) 0.87 L (1.0-4.8) k/uL Eosinophils # (Manual) 1.36 H (0-0.7) k/uL Metamyelocytes # (Man) 0.29 H (0) k/uL Myelocytes # (Manual) 0.10 H (0) k/uL ABG pCO2 (35-45) mmHg ABG pO2 (83-108) mmHg ABG HCO3 (21-25) mmol/L ABG Total CO2 (19-24) mmol/L ABG O2 Saturation (94-97) % Sodium 147 H (137-145) mmol/L Carbon Dioxide 35 H (22-30) mmol/L BUN 76 H (7-17) mg/dL Creatinine 1.19 H (0.52-1.04) mg/dL Glucose 104 H (74-99) mg/dL POC Glucose (mg/dL) 104 H (75-99) mg/dL Total Protein 5.8 L (6.3-8.2) g/dL Albumin 2.6 L (3.5-5.0) g/dL 09/03/21 Range/Units 05:56 RBC (3.80-5.40) m/uL Hgb (11.4-16.0) gm/dL Hct (34.0-46.0) % RDW (11.5-15.5) % Lymphocytes # (Manual) (1.0-4.8) k/uL Eosinophils # (Manual) (0-0.7) k/uL Metamyelocytes # (Man) (0) k/uL Myelocytes # (Manual) (0) k/uL ABG pCO2 57 H (35-45) mmHg ABG pO2 59 L* (83-108) mmHg ABG HCO3 36 H (21-25) mmol/L ABG Total CO2 38 H (19-24) mmol/L ABG O2 Saturation 91.9 L (94-97) % Sodium (137-145) mmol/L Carbon Dioxide (22-30) mmol/L BUN (7-17) mg/dL Creatinine (0.52-1.04) mg/dL Glucose (74-99) mg/dL POC Glucose (mg/dL) (75-99) mg/dL Total Protein (6.3-8.2) g/dL Albumin (3.5-5.0) g/dL Assessment and Plan Assessment: Impression: Acute hypoxic respiratory failure secondary to COVID-19 pneumonia, ARDS secondary to COVID-19 pneumonia Benign essential hypertension Suspect metabolic encephalopathy secondary to COVID-19 pneumonia, also suspect anoxic brain injury. 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 Status post cardiac arrest/3 minutes of CPR with return of spontaneous circulation. On 08/31/21. Recommendations: Continue ventilatory support , rate of 32 volume 400 FiO2 65%, PEEP remains 20. Patient clearly has a picture of ARDS related to her acute COVID-19 pneumonia. Continue nutritional support/enteral feeding. Continue COVID-19 cocktail Continue Decadron. Patient remains critically ill. Prognosis remains poor and guarded. Her overall picture is extremely poor. DO NOT RESUSCITATE CODE STATUS was established yesterday Critical care time is over 30 minutes. Time with Patient: Greater than 30
[2021-09-03] MEDS: NOREPINEPHRINE 4 MG in SODIUM CHLORIDE 0.9% 250 ML IV SCH ×4 (11:29→23:37)
--- NOTE | 2021-09-03 11:48 | P.PN ---
Subjective This is a 76-year-old white female who not been seen in our office for over a year. He came emergency room with cough congestion dyspnea and weakness and fatigue for several weeks. She tested positive for cover a week ago with a home test per the emergency room physician. Per the ER physician she not been vaccinated for current receive any [place] and treatment. She indicates shortness of breath had gotten worse. She denied any fevers severe headache chest pain or pressure. She was seen emergency room. She was on a BiPAP at this time in the intensive care unit.. Her conversation is limited by this. 08/06/2021: Patient is now intubated and sedated/paralyzed. This was done approximately 8 PM last night. She has COVID-19 pneumonia. She remains afebrile. Pulse is somewhat bradycardic over the past 18 hours. Respiratory rate is mechanically ventilated. Blood pressure is stable to this time. Labs show leukocytosis with a WBC count of 15.4 hemoglobin was 12 3 platelets are 113. There is an absolute neutrophilia at 14. Blood gases show pH 7.41 with a P CO2 of 40 and a PO2 of 78. Chemistries essentially normal slightly elevated BUN 21 creatinine 0.78. Glucoses are better controlled. She was placed on insulin drip yesterday. Cultures no growth after 24 hours and the blood, sputum culture pending. Chest x-ray shows bilateral multifocal confluent opacities consistent COVID-19 infection. Improved aeration suggesting improving. He has orders for Ventolin HFA inhaler, remains on vitamin C vitamin D, along with the dexamethasone. She is receiving Baricitnib all for Covid. She is paralyzed and Nimbex and remains on propofol for sedation. Staff indicated tube feeds may start soon. 08/07/2021:This is a 76-year-old female who presented to emergency room with cough, congestion, dyspnea and weakness and fatigue over several weeks. Approximately week ago patient took a home Covid test which indicated that she was positive. She has not received Covid vaccine or treatment for the positive Covid test. When symptoms worsened she decided to present to the ER for evaluation and treatment. She was initially placed on BiPAP in the intensive care unit and subsequently been intubated. She is currently paralyzed with c isatracurium, sedated with propofol and utilizing Toradol IV push for pain management. Currently mechanically ventilated on 80% FiO2. Patient is afebrile 96.9, respiratory rate of 26, blood pressure is stable at 109/51, maintain oxygen saturation of 90% and entitle CO2 of 28. Most recent set of vital signs WC count of 15.5, hematocrit of 35.6, hemoglobin 12.0, platelet count 119. Chemistry panel reveals a sodium 138, potassium 3.8, BUN of 19, creatinine 0.72, GFR 83, AST of 99, ELT 106, alk phos 131, LDH 847. TSH of 8.37. T4 0.5, pro- calcitonin 0.34 08/08/2021 remains mechanical ventilator-dependent, FiO2 decreased to 65%, PEEP remains at 20. Continues on Nimbex and diprovan drips. Chest x-ray reported patchy bilateral infiltrate with diffuse interstitial pattern, tiny right-sided pleural effusion, received Lasix. Maintained on Rocephin (Moraxella catarrhalis in the sputum) , Covid cocktail with Baricitinib discontinued. Blood sugars elevated. Afebrile, WBC 13.3. Pro-calcitonin 0.34. 08/09/2021 continues on FiO2 65% with PEEP of 20, Nimbex and diprovan drips. Chest x-ray reporting persistent patchy bilateral infiltrate with diffuse interstitial pattern. Received additional Lasix today Blood sugars elevated, improving, A1c 8.4. Afebrile, WBC 14.3. D-dimer 0.77, ferritin increased to 2512, LDH decreased to 606, CRP increased to 21.2. LFTs decreasing with the exception of alkaline phosphatase, increased to 171. ProBNP 453. Receiving tube feeds to call, tolerating well with minimal to no residuals, stooling. 08/10/2021 remains vent dependent, FiO2 60%/+18 of PEEP. Maintained on Nimbex and diprovan drips. Chest x-ray noted, unchanged. Currently afebrile, T-max 99.1, WBC trending down, 12.7. BUN 24, and 0.74. Repeat pro-calcitonin 0.31. Additional Levemir added to med regimen yesterday, Blood sugars controlled. Received Lasix IV push yesterday again, diuresed well with 24-hour I&O reflecting a negative fluid balance. Sodium within normal limits, 142. 08/11/2021 yesterday patient of placed on Nimbex holiday, during the night unable to tolerate became asynchronous with the ventNimbex resumed. Diprovan drip continues. Maintained on FiO2 65% with PEEP decreased to 17. Maintained on Rocephin ,Covid cocktail. Chest x-ray reporting stable diffuse bilateral infiltrate. Inflammatory markers decreasing.Tolerating tube feeds minimal to no residual. Levemir increased yesterday with blood sugars controlled. Afebrile. 08/12/2021 patient was given another paralytic holiday yesterday and continues off of Nimbex. During the night, difficulty maintaining O2 sats, cuff leak discovered, required higher FiO2. Maintained on diprovan. Currently FIO2 90%, PEEP of 16. Chest x-ray reporting bilateral moderate pulmonary edema, possibly worsening, antibiotics adjusted, now on cefepime. Maintained on Covid cocktail. Blood sugars controlled. Renal function stable. 08/15/2021 remains vent dependent, FiO2 75%/+16 of PEEP. Maintained on diprovan and fentanyl drips. Currently off paralytics. Sedation holiday attempted yesterday with minimal improvement of mental status, no response to any stimuli reported. Chest x-ray reporting persistent bilateral airspace disease. Continues on cefepime. Tolerating tube feeds at goal, with minimal to no residuals, blood sugars controlled. Inflammatory markers mildly increased. 08/16/2021 remains vent dependent, FiO2 65%/+16 of PEEP. Chest x-ray reporting diffuse interstitial and alveolar infiltrates. Maintained on diprovan and fentanyl drips. Door Captain currently discussing treatment of trach and peg with family. T-max 99.1, WBC 15.7. D-dimer, CRP decreased, LDH increased. 08/17/2021 vent dependent, FiO2 50%/+16 of PEEP. Chest x-ray reporting diffuse interstitial and alveolar infiltrates. Tube feeds and lovenox on hold. Maintained on IV fluid hydration D5/45. Scheduled for trach and peg today. T-max 99.7, WBC 13.5. Creatinine increased up to 1.15. 08/18/2021 Remains vent dependent, FiO2 70+16 of PEEP.Maintained on diprovan, fentanyl. PEG tube attempted yesterday, surgeon unable to pass scope. Patient is scheduled for tracheostomy and potential PEG tube placement today. 08/19/2021 Tracheostomy placed yesterday. Cuff leak present, TV increased. Maintained on 90% FiO2/+16 of PEEP. Chest x-ray reporting bilateral infiltrates.Continues on Nimbex, fentanyl and diprovan. PICC line placed. Tolerating tube feeds via OG of vital AF at goal of 31ml per hour. Sodium normalized, renal function stable. Blood sugars better controlled. 08/20/2021: Patient remains afebrile. She continues to be mechanically ventilated through her tracheostomy tube. Blood pressure stable. She remains on fentanyl, propofol, and cefepime IVs along with the oral tube feeds. Curr ently patient's on an FiO2 of 75%. PEEP is 16. Labs show WBC count 9.5. Blood gases today show pH 7.46 with PCO2 45 and a PO2 of 54. Glucose over the past 24 hours is been between 1:30 and 117. Chest x-ray she shows correlate for pneumonia and ARDS. 08/21/2021: Patient remains sedated with tracheostomy tube. A PEG tube placement is planned for tomorrow. She is on oral gastric feeding tube at goal at this time. She is afebrile. Vitals are stable. She remains mechanically ventilated. She currently remains on fentanyl and propofol, the doses have been reduced. Staff report she'll open her eyes but is not following commands at this time. She is a Sosa catheter to gravity. There's been no bowel movement. Multiple days. She remains on the COVID-19 cocktail including Decadron, L ovenox, Protonix, vitamin C. She remains on cefepime antibiotics for possible Moraxella pneumonia. 08/29/2021: Patient remains sedated with tracheostomy tube. PEG tube placement done 08/22/2021. She is afebrile. She remains mechanically ventilated. FIO2 is 60%. PEEP 20. She currently remains on Fentanyl and propofol, Staff report she'll open her eyes but is not following commands at this time. She is a Sosa catheter to gravity. . She remains on the COVID-19 cocktail including Decadron, Lovenox, Protonix, vitamin C. she is NOT improving. 08/30/2021:She is afebrile. She remains mechanically ventilated. the patient remains intubated on a mechanical ventilator. Tracheostomy placed on 08/24/2021 .Peg Tube feeds continue. She remains sedated and she is on propofol Fentanyl was turned off yesterday. The patient is currently on no paralytics. FiO2 is currently at 60% with a PEEP of 20. she is on no antibiotics currently. Blood gas that shows a pH of 7.4 with a pCO2 of 50 and pO2 of 75. The white cell count today is at 8.1 with a hemoglobin of 10 and a platelet count of 160. Electrolytes, show the creatinine is 1.29 with a BUN of 65, She was started on diuretics of Lasix 40 mg IV every 12 hours. The patient is currently on Decadron which is running at 6 mg IV every 24 hours. The patient is also on Levemir insulin at a dose of 30 units in the morning and 10 units in the evening along with a slight scale coverage. IV fluids are currently at KVO. Her husand was at bedside and I was able to speak to him as t othe senior care outlook for Malinda. The fact we have see NO improvement in her overall condition is troubling and a poor prognostic indicator. he is now arare of this and of her poor outcome likelyhood. 08/31/2021::the patient is afebrile. She remains mechanically ventilated. the patient remains intubated on a mechanical ventilator. Tracheostomy placed on 08/24/2021 .Peg Tube feeds continue. She remains sedated and she is on propofol, The patient is currently on no paralytics. FiO2 is currently at 60% with a PEEP of 20. she is on no antibiotic s currently. Blood gas that shows a pH of 7.4 with a pCO2 of 54 and pO2 of 68. The white cell count today is at 7.6 with a hemoglobin of 10.3 and a platelet count of 161. Electrolytes, show the creatinine is 1.34 with a BUN of 66, The patient is currently on Decadron which is running at 6 mg IV every 24 hours. The patient is also on Levemir insulin at a dose of 30 units in the morning and 10 units in the evening along with a slight scale coverage. IV fluids are currently at KVO. Her daughter was at bedside and I was able to speak to her about rn long term care outlook for Malinda. SHe [facility]. 09/01/2021:Overnight, the patient had went in asystole and needed chest compressions and other support to resuscitate her.This morning, the patient is afebrile. She remains mechanically ventilated. the patient remains intubated on a mechanical ventilator. Tracheostomy placed on 08/24/2021 .Peg Tube feeds continue at goal.She is now on we referred to help with hypotension. She remains sedated on propofol, The patient is currently on no paralytics. FiO2 is currently at 60% with a PEEP of 20. she is on no antibiotics currently. Vitals stable. Blood gas that shows a pH of 7.32 with a pCO2 of 66 and pO2 of 69. The white cell count today is at 10.9 with a hemoglobin of 11. and a platelet count of 171. Electrolytes, show the creatinine is 1.27 with a BUN of 69, Sputum culture is positive for staph aureus. The patient is currently on Decadron which is running at 6 mg IV every 24 hours. The patient is also on Levemir insulin at a dose of 30 units in the morning and 10 units in the evening along with a slight scale coverage. IV fluids are curre ntly at KVO. 09/02/2021: Patient remains in intubated. She is now sedated with fentanyl. This is been restarted. She remains on propofol as well. Currently FiO2 is now 65% with a PEEP of 20. She is making no progress. She became agitated And tachycardic requiring the need for fentanyl be restarted. Currently heart rate remains normal, respiratory rate is mechanically ventilated but controlled. Blood pressure stable. ABG showed pH 7.42 with a PCO2 of 55 and a PO2 of 52 today. Chemistries are stable. Glucose remains improved today. CBC is normal [place] 9.7. Hemoglobin is 10.3 today. Critical care note reviewed for today. Chest x-ray does not show much change. It says "correlate for pneumonia and ARDS, edema" Patient remains on tube feeds. She is on Levemir insulin 10 units daily at bedtime and 30 units every morning. She has copious cocktail ordered, she remains on dexamethasone 6 mg IV push daily. Lovenox 40 mg subcutaneous daily for anticoagulation. The rest of her medications remain the same at this time. 09/03/2021: Patient remains in intubated. She remains on propofol and fentanyl and now norepinephrine. Currently FiO2 is now 65% with a PEEP of 20, which is no change from the past several days. Currently heart rate remains normal, respiratory rate is mechanically ventilated but controlled. Blood pressure stable. I's and O's show a negative balance of 127.3 mL so far today. Indwelling Sosa catheter remains in place, urine straw-colored. ABG showed pH 7.41 with a PCO2 of 57 and a PO2 of 59 today. Chemistries show an increase in her BUN creatinine ratio.. Glucose remains improved today. CBC is normal wbc 9.u. Hemoglobin is 10.3 today. Critical care note reviewed for today. Chest x-ray from yesterday does not show much change. It says "correlate for pneumonia and ARDS, edema" Patient remains on tube feeds. She is on Levemir insulin 10 units daily at bedtime and 30 units every morning. She has covid cocktail ordered, she remains on dexamethasone 6 mg IV push daily. Lovenox 40 mg subcutaneous daily for anticoagulation. The rest of her medications remain the same at this time. Objective - Vital Signs Vital signs: Vital Signs Temp 98.8 F 09/03/21 08:00 Pulse 75 09/03/21 10:30 Resp 32 H 09/03/21 10:30 BP 93/50 09/03/21 10:30 Pulse Ox 91 L 09/03/21 10:30 Intake & Output 09/02/21 09/03/21 09/03/21 18:59 06:59 18:59 Intake Total 7331.188 9518.434 297.645 Output Total 1006 430 425 Balance 106.690 575.434 -127.355 Weight 99.9 kg 99.9 kg Intake: IV 276 299 69 Pressure Bag 0.9% Sodium 36 39 9 Chloride @ 3mL/hr Sodium Chloride 0.9% 1, 240 260 60 000 ml @ 20 mls/hr IV . Q24H [facility] Rx#:[id number] Intake, IV Titration 426.690 408.434 150.645 Amount Norepinephrine 4 mg In 230.456 Sodium Chloride 0.9% 250 ml @ 0.05 MCG/KG/MIN 19. 088 mls/hr IV .[id number] [facility] Rx#:[id number] fentaNYL (PF). 1,000 mcg 76.241 95.261 91.904 In Sodium Chloride 0.9% 80 ml @ 0.5 MCG/KG/HR 4. 795 mls/hr IV .[id number] [facility] Rx#:[id number] propofoL 1,000 mg In 350.449 82.717 58.741 Empty Bag 1 bag @ Titrate IV .Q0M [facility] Rx#: [id number] Tube Feeding 240 208 48 Other 170 90 30 Output: Urine 1005 430 425 Stool 1 Other: Voiding Method Indwelling Catheter Indwelling Catheter Indwelling Catheter ABP, PAP, CO, CI - Last Documented Arterial Blood Pressure 118/44 - Exam GENERAL: elderly female currently with tracheostomy being mechanically vent ilated and sedated. NECK: Tracheostomy tube in place. Oral feeding tube in place. LUNGS: Breath sounds coarse bilaterally and mechanically ventilated HEART: Regular rate and rhythm without murmurs, rubs or gallops.S1S2 Normal ABDOMEN: Soft, nontender, normoactive bowel sounds. No guarding, no rebound. No masses appreciated. PEG in place LUQ, Sosa catheter to gravity noted EXTREMITIES:no pitting or edema. No clubbing or cyanosis. NEUROLOGICAL: Sedated SKIN: Warm, Dry, normal turgor, no rashes or lesions noted. - Labs CBC & Chem 7: 09/03/21 03:10 09/03/21 03:10 Labs: Abnormal Lab Results - Last 24 Hours (Table) 09/02/21 09/02/21 09/02/21 Range/Units 11:50 17:44 21:27 RBC (3.80-5.40) m/uL Hgb (11.4-16.0) gm/dL Hct (34.0-46.0) % RDW (11.5-15.5) % Lymphocytes # (Manual) (1.0-4.8) k/uL Eosinophils # (Manual) (0-0.7) k/uL Metamyelocytes # (Man) (0) k/uL Myelocytes # (Manual) (0) k/uL ABG pCO2 (35-45) mmHg ABG pO2 (83-108) mmHg ABG HCO3 (21-25) mmol/L ABG Total CO2 (19-24) mmol/L ABG O2 Saturation (94-97) % Sodium (137-145) mmol/L Carbon Dioxide (22-30) mmol/L BUN (7-17) mg/dL Creatinine (0.52-1.04) mg/dL Glucose (74-99) mg/dL POC Glucose (mg/dL) 134 H 149 H 120 H (75-99) mg/dL Total Protein (6.3-8.2) g/dL Albumin (3.5-5.0) g/dL 09/03/21 09/03/21 09/03/21 Range/Units 00:12 03:10 03:10 RBC 3.23 L (3.80-5.40) m/uL Hgb 9.8 L (11.4-16.0) gm/dL Hct 31.5 L (34.0-46.0) % RDW 16.0 H (11.5-15.5) % Lymphocytes # (Manual) 0.87 L (1.0-4.8) k/uL Eosinophils # (Manual) 1.36 H (0-0.7) k/uL Metamyelocytes # (Man) 0.29 H (0) k/uL Myelocytes # (Manual) 0.10 H (0) k/uL ABG pCO2 (35-45) mmHg ABG pO2 (83-108) mmHg ABG HCO3 (21-25) mmol/L ABG Total CO2 (19-24) mmol/L ABG O2 Saturation (94-97) % Sodium 147 H (137-145) mmol/L Carbon Dioxide 35 H (22-30) mmol/L BUN 76 H (7-17) mg/dL Creatinine 1.19 H (0.52-1.04) mg/dL Glucose 104 H (74-99) mg/dL POC Glucose (mg/dL) 104 H (75-99) mg/dL Total Protein 5.8 L (6.3-8.2) g/dL Albumin 2.6 L (3.5-5.0) g/dL 09/03/21 Range/Units 05:56 RBC (3.80-5.40) m/uL Hgb (11.4-16.0) gm/dL Hct (34.0-46.0) % RDW (11.5-15.5) % Lymphocytes # (Manual) (1.0-4.8) k/uL Eosinophils # (Manual) (0-0.7) k/uL Metamyelocytes # (Man) (0) k/uL Myelocytes # (Manual) (0) k/uL ABG pCO2 57 H (35-45) mmHg ABG pO2 59 L* (83-108) mmHg ABG HCO3 36 H (21-25) mmol/L ABG Total CO2 38 H (19-24) mmol/L ABG O2 Saturation 91.9 L (94-97) % Sodium (137-145) mmol/L Carbon Dioxide (22-30) mmol/L BUN (7-17) mg/dL Creatinine (0.52-1.04) mg/dL Glucose (74-99) mg/dL POC Glucose (mg/dL) (75-99) mg/dL Total Protein (6.3-8.2) g/dL Albumin (3.5-5.0) g/dL Assessment and Plan (1) Acute respiratory failure with hypoxia Current Visit: Yes Status: Acute Code(s): J96.01 - ACUTE RESPIRATORY FAILURE WITH HYPOXIA SNOMED Code(s): 08848985 (2) Pneumonia due to COVID-19 virus Current Visit: Yes Status: Acute Code(s): U07.1 - COVID-19; J12.82 - PNEUMONIA DUE TO CORONAVIRUS DISEASE 2019 SNOMED Code(s): 215849012810730977 (3) Hypoxia Current Visit: Yes Status: Acute Code(s): R09.02 - HYPOXEMIA SNOMED Code(s): 596934702 (4) Hypothyroidism, unspecified Current Visit: Yes Status: Acute Code(s): E03.9 - HYPOTHYROIDISM, UN SPECIFIED SNOMED Code(s): 33315819 (5) Mixed hyperlipidemia Current Visit: Yes Status: Acute Code(s): E78.2 - MIXED HYPERLIPIDEMIA SNOMED Code(s): 119516099 (6) Type 2 diabetes mellitus without complications Current Visit: Yes Status: Acute Code(s): E11.9 - TYPE 2 DIABETES MELLITUS WITHOUT COMPLICATIONS SNOMED Code(s): 995002169 Plan: I will defer to critical care/hand bookbinder while 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 She'll remain on her current medications. She'll continue on the current covid protocol, Continue dexamethasone, Lovenox, pantoprazole, levothyroxine, insulin scale, Levemir daily at bedtime PEG tube with feeds at goal Her outlook is poor. Family medicine will reevaluate her in 24 hours
[2021-09-03 11:49] LABS: Glucose,Whole Blood 94 mg/dL (75-99)
[2021-09-03 17:42] LABS: Glucose,Whole Blood 119 mg/dL (75-99)
--- NOTE | 2021-09-03 20:26 | XR ---
EXAMINATION TYPE: XR chest 1V portable DATE OF EXAM: 09/03/2021 COMPARISON: Yesterday HISTORY: Respiratory failure TECHNIQUE: Single view FINDINGS: There is tracheostomy tube. There is diffuse pulmonary interstitial and airspace edema. Hea rt size is normal. There are chest leads. Trachea is midline. There is left subclavian catheter with tip in the superior vena cava. IMPRESSION: Pulmonary edema that could relate to RDS. No change.
[2021-09-04] MEDS: INSULIN ASPART (NovoLOG) 100 UNIT/ML VIAL SQ SCH ×2 (00:32→06:32)
[2021-09-04] MEDS: NOREPINEPHRINE 4 MG in SODIUM CHLORIDE 0.9% 250 ML IV SCH ×7 (00:35→06:33)
[2021-09-04 00:55] VITALS: TEMP 98
[2021-09-04 01:18] VITALS: RESP 32
[2021-09-04] MEDS: ALBUTEROL HFA INHALER INHALATION SCH ×2 (03:28→07:24)
[2021-09-04] MEDS: fentaNYL (PF). 1,000 MCG in SODIUM CHLORIDE 0.9% 80 ML IV SCH (04:41)
[2021-09-04] MEDS: SODIUM CHLORIDE 0.9% 1,000 ML IV SCH (04:41)
[2021-09-04] MEDS: LEVOTHYROXINE 100 MCG TAB OG-TUBE SCH (05:52)
[2021-09-04 05:57] LABS: Glucose,Whole Blood 78 mg/dL (75-99)
[2021-09-04] MEDS: INSULIN DETEMIR (LEVEMIR) 100 UNIT/ML SYR SQ SCH (06:32)
[2021-09-04 07:11] VITALS: BP 83/51; PULSE 152
[2021-09-04] MEDS ORDERED: MORPHINE SULFATE (100 MG/2 ML) 100 MG in SODIUM CHLORIDE 0.9% 100 ML IV SCH (07:30)
--- NOTE | 2021-09-04 09:37 | P.PN ---
Subjective Progress Note Date: 09/04/21 Principal diagnosis: Acute hypoxic resp. failure second to COVID-19 pneumonia 08/14/2021, the patient's condition remains essentially unchanged. She has post COVID 19 related pneumonia with secondary ARDS and her oxygenation has remained unchanged and her ventilator settings have been essentially remained stable over the past several days. This morning, the patient remains sedated and she is currently on propofol running at a rate of 45 mcg/kg per minute. The patient is not paralyzed at this point in time. We should be able to cut down her sedation to a lower level at this point. Meanwhile, we are still allowed permissive hypercapnia. She is on low tidal volume mechanical ventilation with a tidal volume of 325, rate of 26, PEEP is at 60 with an FiO2 of 90%. Peak airway pressures 33. Static pressures 31 and all of these numbers are comparable to yesterday. The blood gas showed a pH of 7.37 with a pCO2 of 60 and pO2 of 60. She remains on IV cefepime as the cultures Moraxella in her sputum. Her respiratory secretions are scant at this point in time. She is afebrile. She is hemodynamic is stable. She remains on Decadron. Her mother markers have improved specially the LDH. Her CRP was still elevated at 23 however this was also downtrending. She remains on enteral feeding for nutritional support. She is receiving vital AF and she is currently ongoing. Urine output is adequate. Overall fluid balance over the past 24 hours has been +457 mL. No signs of any significant: Overload. Noted the patient has been intubated on 08/05/2021 and her progress has been essentially minimal at this point in time. Unable to do any further weaning from mechanical ventilator due to her poor oxygenation status. Chest x-ray from yesterday was noted. A repeat chest x-ray will be done today. Rest of the blood work essentially stable. She remains on Levemir insulin 30 units in the morning and 10 units in the evening and she is also on a sliding scale insulin coverage. She is also on Lovenox 40 mg subcu for DVT prophylaxis. IV fluids are currently at KVO. Reevaluated today on 08/15/2021, patient remains in the ICU, intubated and mechanically ventilated. She is presently on assist control rate of 26, tidal volume of 325 FiO2 75% PEEP 16. ABG earlier on 90% showed a pO2 of 85 pCO2 of 80 pH of 7.28. Patient is on propofol at 25 g per acute per minute, off Nimbex for now, not requiring any pressors, hemodynamically parra patient is doing well. Patient is on enteral feeding using vital AF 23 mL per hour. Today I suggested adding fentanyl for adequate ventilation and control agitation as propofol alone does not seem to be enough unless we have to increase the dose. Patient had a sedation holiday yesterday, and not much of an improvement noted in the mental status, and the patient would not respond to any stimuli. I suggested today to start increasing the dose of propofol as she seems to be tachypneic and tachycardic, and if not enough, will add fentanyl. But try to avoid Nimbex if possible. Chest x-ray continues to show bilateral interstitial infiltrates. Lines and tubes seem to be in proper position. Labs today WBC count 15.7 hemoglobin 11.2 d-dimer is 1.2, electrodes are normal except for slightly elevated sodium of 145 bicarb is 35 BUN is 69 creatinine 0.93. LDH is 679 C- reactive protein is 26.6 months much of a change in the last few days in both inflammatory markers. Patient remains on the COVID-19 cocktail, she is also on cefepime. Lovenox 40 mg subcu daily. Patient had Moraxella growing out of her sputum on 08/13 and 08/05. Patient was reevaluated today on 08/16/2021, remains in the ICU, intubated and m echanically ventilated. Patient is on assist control rate of 26 tidal volume 325 PEEP of 16 FiO2 75%, ABG showed a pO2 of 73 pCO2 87 pH of 7.24 hence her respiratory rate was increased to 32. Patient remains on propofol at 50 fentanyl at 0.5 mcg/kg/h, she is not requiring Nimbex. Patient had a relatively elevated inflammatory markers including LDH of 766 and C-reactive protein of 18.7. Chest x-ray is not showing much of a change, continues to have bilateral interstitial infiltrates. WBC count showed the 15.7, hemoglobin 11.3 ID d-dimer is 1.12 Reevaluated today on 08/17/2021, patient remains in the ICU, intubated and mechanically ventilated. Patient is scheduled to undergo tracheostomy and PEG tube placement today. She is presently on assist control rate of 3 to tidal volume 325 FiO2 65% and PEEP of 16 she remains on fentanyl at 1 mcg/kg/h propofol at 20 mcg/kg/m patient is on enteral feeding but it is presently on hold for her tracheostomy and PEG tube placement. Chest x-ray continues to show diffuse pneumonic process/ARDS. ABG this morning on 50% showed a pO2 of 52 pCO2 of 72 pH of 7.32, hence FiO2 was increased up to 65%. CBC is relatively unremarkable, sodium is 146 renal profile showed a BUN of 89 creatinine of 1.15. LDH is 509 and C-reactive protein is 8.7. Reevaluated today on 08/18/2021, patient remains in the ICU, intubated and mechanically ventilated. Patient is on assist control rate of 3 to tidal volume 325 FiO2 70% PEEP of 16. ABG is marginal with a pO2 of 60 pCO2 of 70 pH of 7.32, hence no changes were made on her ventilator settings. Patient remains on a fall at 50 mcg/kg/m fentanyl 1 mcg/kg/h she is on D5 4500 mL per hour. CBC is relatively unremarkable hemoglobin is 10.1 electrolytes and renal profile are normal. Patient was seen by general surgery yesterday, and could not pass a scope to be able to perform at PEG tube placement. Hence the patient is scheduled today for tracheostomy, maybe PEG tube placement could be done today in the operating room. At any rate patient is not ready for any weaning, and apparently the family had no problem proceeding with tracheostomy and PEG tube placement. Her overall clinical status remains marginal at best. Reevaluated today on 08/19/2021, patient remains in the ICU, intubated and mecha nically ventilated. Patient is on assist control rate of 32, tidal volume 325 and today I have increased the volume to 400 mostly because of ongoing cough leak from the new tracheostomy she is on 90% FiO2, and PEEP of 16. Chest x-ray continues to show bilateral infiltrates, not much of a change. Patient underwent uneventful tracheostomy yesterday. Her ABG this morning showed a pO2 of 74 pCO2 of 63 pH of 7.35, and not much of a change on the ventilator settings except increasing the tidal volume up to 400. I did cut down her FiO2 to 70%, and instructed nursing to keep her O2 saturation between 89 and 91%. She is on propofol at 25 mcg/kg/m fentanyl 1 mcg/kg/h she is also on Nimbex, and on IV fluid 0.9 normal saline at 20 mL per hour. Patient is scheduled to have a PICC line today. And will DC the central line. After a PICC line placement. Patient remains on enteral feeding via orogastric tube, receiving vital AF and 31 mL per hour. Electrolytes and renal profile are normal today. Remains on the COVID-19 cocktail including ascorbic acid, she is also on Decadron 6 mg IV push daily, Lovenox 40 mg subcu daily, Protonix 40 mg daily IV push, zinc, patient is also on cefepime for underlying Moraxella catarrhalis pneumonia. Reevaluated today on 08/20/2021, patient remains in the ICU, intubated and mechanically ventilated. She is on assist control rate of 3 to tidal volume 400 FiO2 75% PEEP of 16. ABG showed a pO2 of 54 DC O2 of 45 pH of 7.46, hence The patient on FiO2 of 75%, and no other vent changes were made. Patient continues to have tracheostomy, she underwent tracheostomy on 08/17/21, minimal air leak noted from the tracheostomy, however seems to be improving, and she is achieving near her septal volumes. Patient is on fentanyl at 20 mcg/kg/h propofol 25 mc g/kg/m and she is on vital AF. Rate 34. Patient is not on any paralytics. Hence I would assess mental status hopefully today of or possibly a lower dose of sedation. CBC is relatively normal hemoglobin is 9.5. Electrolytes are normal, BUN is 64 creatinine 0.97. Patient is receiving enteral feeding. Remains on the COVID-19 cocktail including Decadron 6 mg IV push daily Lovenox 40 mg subcu daily Protonix 40 mg IV push daily and she is also on vitamin C. Remains on cefepime for underlying Moraxella catarrhalis pneumonia. Reevaluated today on 08/21/2021, patient remains in the ICU intubated and mechanically ventilated. She is on assist control rate of 30 tidal volume 400 FiO2 is at 80% and PEEP is at 16 after reviewing her ABG which showed a pO2 of 65 pCO2 45 pH of 7.44 I recommended decreasing FiO2 to 70%. Patient did not tolerate higher PEEP/18. Hence kept on a PEEP of 16. Patient remains on propofol at 20 fentanyl at 0.5, and she is not on Nimbex. Patient is arousable she opens her eyes only. But does not follow any other instructions. Her electrolytes are normal BUN is 62 creatinine 1.01 blood pressure seems to be high S1 as the patient has lower sedation and this was the dose of propofol goes down, hence I recommended adding clevidipine's to maintain adequate blood pressure hopefully 150 systolic. Chest x-ray continues to be about the same showing bilateral infiltrates. Medications list reviewed patient is on albuterol HFA, vitamin C, cefepime 1 g every 12 hours, she is on Peridex, vitamin D, Celebrex was added today, Decadron 6 mg IV push daily NovoLog insulin and Levemir insulin. Levothyroxine 100 g daily Protonix 40 mg IV push daily and she is on zinc. On today's evaluation of 08/31/2021, I'm seeing the patient for a follow-up. Remains in ARDS follows COVID 19 related pneumonia. The patient remains sedated on propofol which is running at 25 mg/kg/m. She is off paralytics and she was also taken off fentanyl. He remains essentially the same ventilator settings , she remains on assist control mode at the rate of 32, tidal volumes of 400, FiO2 is currently at 60% with a PEEP of 20. Peak airway pressures on a mechanical ventilator is 40 on today's evaluation. The static pressure is 38, and the patient continues to have some leak around the tracheostomy tube and the leak is estimated to be around 50 mL based on returned tidal volume. The chest x-ray is showing stable bilateral lower lobe pulmonary infiltrates and the tracheostomy tube is in a good location. The last chest x-ray was from 08/29/2021. Note that the patient did have Moraxella catarrhalis and her sputum earlier and this was treated. The patient continues to be on diuretics and the patient is receiving Lasix 40 mg IV every 12 hours and the patient has been neg ative fluid balance of at least 1.1 L over the past 24 hours. Weight is currently down to 100 kg which is 5 kg last or the past few days. Meanwhile, the rest of the labs from today shows a blood gases of pH of 7.37 with a pCO2 of 54 and pO2 of 68 and this was on FiO2 of 50%. White cell count 7.6 with a hemoglobin of 10.3, the creatinine is at 1.34 with a mean of 66 and this has been essentially stable, serum bicarb is slightly higher why the patient is being diuresis and the bicarb currently is at 32 with a sodium level of 143. She remains on propofol and triglyceride level was at 262. Liver function tests were normal from yesterday. Her most recent pro-calcitonin level was from 08/12/2021 and has not been checked since. On a separate note, the repeat a sputum sample is showing staph aureus. She remains on Levemir insulin 10 units at bedtime and 30 units in the morning along with a sliding scale coverage. She is on Lovenox 40 mg subcu for DVT prophylaxis. IV fluids are currently at KVO. Enterofeeding is in the form of vitamin AF at the rate of 28 mL an hour which is currently at goal. Reevaluated today on 09/01/2021, patient remains in ICU, intubated and mechanically ventilated. She is on assist control rate of 3 to tidal volume 400 FiO2 90% and PEEP remains at 20. Apparently last night the patient had an episode of unresponsiveness, and she basically arrested. Her down time was 3 minutes, patient responded to one dose of epinephrine, and 1 round of CPR/2 minutes. Today the patient is sedated, she is on hardly any propofol at 50 mcg/m, she is on enteral feeding. She remains on vital AF at 28 mL per hour. Remains on Lasix and on Decadron. Her mental status is extremely poor, and it was even poor prior to her cardiac arrest yesterday. Looking at the events from yesterday, patient may have developed some mucus plugging in the tracheostomy tube, and at one point she was difficult to ventilate or back, there is also some difficulty introducing a suction catheter through the tracheostomy tube. Patient had a brief cardiac arrest, however the obstruction resolved during the code. The [facility] see count today is 10.9 hemoglobin 11.1. ABG is marginal with a pO2 of 69 pCO2 of 66 pH of 7.32 and this was on the 100%. Electrolytes are normal BUN is 69 creatinine is 1.27, not much change number operator the last few days. X- ray was reviewed, bilateral infiltrates persists. Medications parra, patient remains on the COVID-19 cocktail. On Decadron 6 mg IV push daily Lasix 20 mg IV push every 12 hours. Insulin as per protocol. Levothyroxine Protonix 40 mg IV push daily. Norepinephrine if needed, not on any antibiotics presently. Sputum did show MSSA., At one point she had Moraxella catarrhalis, and I believe both with treated, no need to restart antibiotics at this point. Reevaluated today on 09/02/21, patient remains in the ICU, intubated and mechan ically ventilated. Remains on assist control rate of 3 to tidal volume 400 FiO2 65% PEEP remains at 20. Patient is not making much of any improvement. Remains on fentanyl 0.5 mcg/kg/h propofol 60 mcg/kg/m, remains on enteral feeding via PEG tube using vital AF at 28 mL per hour. Patient had to go back on sedation last night, she became extremely agitated, tachypneic, tachycardic, restless, but no purposeful movement noted off sedation. She is back on propofol and fentanyl, seems to be calm now. And her chest x-ray his condition reviewing to show worsening infiltrates bilaterally. Not much of a change noted in the last 24 hours. WBC count is 9.7 hemoglobin is 10.3. ABG showed a pO2 of 52 pCO2 55 pH of 7.42 basic metabolic profile is normal bicarb is 35 BUN is 73 creatinine is 1.30 hence I'm cutting down on her diuresis. She will go down to Lasix 40 mg IV push daily instead of twice a day. Remains on Lovenox 40 mg subcu daily remains on insulin she is on Protonix, Decadron 6 mg IV push daily and she is on the COVID-19 cocktail. Lovenox 40 mg subcu daily Reevaluated today on 09/03/21, patient remains in the ICU intubated and mechanically ventilated, she is on assist control rate of 32, volume 400 FiO2 65% PEEP remains high at 20. ABG remains marginal with a pO2 of 59 pCO2 57 pH of 7.41. Chest x-ray from 09/02 continues to show bilateral infiltrates, not much of a change noted. Patient remains on multiple drips including propofol at 40, fentanyl at 1 mcg/kg/h, norepinephrine at 0.03 mcg/kg/m, she is on IV fluid at KVO, and she is receiving enteral feeding via PEG tube. Labs were reviewed, her electrolytes are abnormal with a sodium of 147 her renal profile showed a BUN of 76 creatinine of 1.19. WBC count is 9.7 hemoglobin is 9.8. Patient is not showing any signs of neurological recovery even in spite of holding sedation and assessment of mental status on a regular basis. Yesterday I discussed her status with the family including and daughter, and CODE STATUS was changed to DO NOT RESUSCITATE. Not deciding get on comfort care measures. Reevaluated today on 08/30, remains in the ICU, intubated and mechanically ventilated. Remains on assist control rate of 32 tidal volume 400 FiO2 100% PEEP of 20. Patient remains on propofol fentanyl, and she is requiring norepinephrine for low blood pressure. Not much change number operator the last 24 hours. Patient is relatively hypotensive in spite of norepinephrine, and she does not seem to be doing well today. Family is all at bedside, and I discussed her CODE STATUS again with the family patient remains DO NOT RESUSCITATE, I even touch bases on possibly going to comfort care measures as it seems to be a futile situation that we are dealing with. No chest x-ray was done today. Reviewed the chest x-ray from yesterday. No labs were drawn today. Objective - Vital Signs Vital signs: Vital Signs Temp 98 F 09/04/21 04:00 Pulse 152 H 09/04/21 07:00 Resp 32 H 09/04/21 07:00 BP 83/51 09/04/21 07:00 Pulse Ox 78 L 09/04/21 07:00 Intake & Output 09/03/21 09/04/21 09/04/21 18:59 06:59 18:59 Intake Total 535.971 5107.063 39 Output Total 845 88 0 Balance -36.355 3033.063 39 Weight 99.9 kg Intake: IV 276 253 23 Pressure Bag 0.9% Sodium 36 33 3 Chloride @ 3mL/hr Sodium Chloride 0.9% 1, 240 220 20 000 ml @ 20 mls/hr IV . Q24H [facility] Rx#:[id number] Intake, IV Titration 244.121 1819.063 Amount Norepinephrine 4 mg In 2262.330 Sodium Chloride 0.9% 250 ml @ 0.05 MCG/KG/MIN 19. 088 mls/hr IV .[id number] [facility]O Rx#:[id number] fentaNYL (PF). 1,000 mcg 91.904 165.907 In Sodium Chloride 0.9% 80 ml @ 0.5 MCG/KG/HR 4. 795 mls/hr IV .[id number] [facility] Rx#:[id number] propofoL 1,000 mg In 158.741 173.826 Empty Bag 1 bag @ Titrate IV .Q0M [facility]O Rx#: [id number] Tube Feeding 192 176 16 Other 90 90 Output: Urine 845 88 0 Other: Voiding Method Indwelling Catheter Indwelling Catheter ABP, PAP, CO, CI - Last Documented Arterial Blood Pressure 38/29 - Exam Physical Exam: Revealed a 76-year-old female sedated, Tracheostomy is intact. Head: Atraumatic, normocephalic. Tracheostomy is intact. HEENT:[Neck is supple.] [No neck masses.] [No thyromegaly.] [No JVD.] Chest: Crackles at the bases no rhonchi and no wheezes Cardiac Exam: Distant S1 and S2, no S3 gallop. Abdomen: [Obese, Soft, nontender, no megaly, no rebound, no guarding, normal bowel sounds.] Extremities: [No clubbing, 1+ bipedal edema, no cyanosis.] Neurological Exam: Unresponsive to any stimuli, does not open eyes, does not have any purposeful movement. Psychiatric: Could not assess. Skin: No rashes. - Labs CBC & Chem 7: 09/03/21 03:10 09/03/21 03:10 Labs: Abnormal Lab Results - Last 24 Hours (Table) 09/03/21 Range/Units 17:41 POC Glucose (mg/dL) 119 H (75-99) mg/dL Assessment and Plan Assessment: Impression: Acute hypoxic respiratory failure secondary to COVID-19 pneumonia, ARDS secondary to COVID-19 pneumonia Benign essential hypertension Suspect metabolic encephalopathy secondary to COVID-19 pneumonia, also suspect anoxic brain injury. 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 Status post cardiac arrest/3 minutes of CPR with return of spontaneous circulation. On 08/31/21. Recommendations: Continue ventilatory support , rate of 32 volume 400 FiO2 100%, PEEP remains 20. Patient clearly has a picture of ARDS related to her acute COVID-19 pneumonia. Continue nutritional support/enteral feeding. Continue COVID-19 cocktail Continue Decadron. Patient remains critically ill. Suggested comfort care measures with the family today. Her overall picture is extremely poor. This is clearly a medical futility situation. DO NOT RESUSCITATE CODE STATUS Critical care time is over 30 minutes. Time with Patient: Greater than 30
--- NOTE | 2021-09-04 12:24 | P.DS ---
Providers Date of admission: 08/04/21 15:17 Expected date of discharge: 09/04/21 Attending physician: Jorge Celis Consults: 08/04/21 15:15 Consult Physician Stat Consulting Provider: Michael Edmond Consult Reason/Comments: Covid pneumonia, hypoxia Do you want consulting provider notified?: Already Contacted 08/16/21 10:42 Consult Physician Urgent Consulting Provider: Marcel Arechiga Consult Reason/Comments: Trach and Peg Do you want consulting provider notified?: Yes Primary care physician: Jorge Celis - Discharge Diagnosis(es) (1) Acute respiratory failure with hypoxia Status: Acute (2) Pneumonia due to COVID-19 virus Status: Acute (3) Hypoxia Status: Acute (4) Hypothyroidism, unspecified Status: Acute (5) Mixed hyperlipidemia Status: Acute (6) Type 2 diabetes mellitus without complications Status: Acute Hospital Course: This is a 76-year-old white female who not been seen in our office for over a year. He came emergency room with cough congestion dyspnea and weakness and fatigue for several weeks. She tested positive for cover a week ago with a home test per the emergency room physician. Per the ER physician she not been vaccinated for current receive any Bourg and treatment. She indicates shortness of breath had gotten worse. She denied any fevers severe headache chest pain or pressure. She was seen emergency room. She was on a BiPAP at this time in the intensive care unit.. Her conversation is limited by this. 08/06/2021: Patient is now intubated and sedated/paralyzed. This was done approximately 8 PM last night. She has COVID-19 pneumonia. She remains afebrile. Pulse is somewhat bradycardic over the past 18 hours. Respiratory rate is mechanically ventilated. Blood pressure is stable to this time. Labs show leukocytosis with a WBC count of 15.4 hemoglobin was 12 3 platelets are 113. There is an absolute neutrophilia at 14. Blood gases show pH 7.41 with a P CO2 of 40 and a PO2 of 78. Chemistries essentially normal slightly elevated BUN 21 creatinine 0.78. Glucoses are better controlled. She was placed on insulin drip yesterday. Cultures no growth after 24 hours and the blood, sputum culture pending. Chest x-ray shows bilateral multifocal confluent opacities consistent COVID-19 infection. Improved aeration suggesting improving. He has orders for Ventolin HFA inhaler, remains on vitamin C vitamin D, along with the dexamethasone. She is receiving Baricitnib all for Covid. She is paralyzed and Nimbex and remains on propofol for sedation. Staff indicated tube feeds may start soon. 08/07/2021:This is a 76-year-old female who presented to emergency room with cough, congestion, dyspnea and weakness and fatigue over several weeks. Approxi mately week ago patient took a home Covid test which indicated that she was positive. She has not received Covid vaccine or treatment for the positive Covid test. When symptoms worsened she decided to present to the ER for evaluation and treatment. She was initially placed on BiPAP in the intensive care unit and subsequently been intubated. She is currently paralyzed with cisatracurium, sedated with propofol and utilizing Toradol IV push for pain management. Currently mechanically ventilated on 80% FiO2. Patient is afebrile 96.9, respiratory rate of 26, blood pressure is stable at 109/51, maintain oxygen saturation of 90% and entitle CO2 of 28. Most recent set of vital signs WC count of 15.5, hematocrit of 35.6, hemoglobin 12.0, platelet count 119. Chemistry panel reveals a sodium 138, potassium 3.8, BUN of 19, creatinine 0.72, GFR 83, AST of 99, ELT 106, alk phos 131, LDH 847. TSH of 8.37. T4 0.5, pro- calcitonin 0.34 08/08/2021 remains mechanical ventilator-dependent, FiO2 decreased to 65%, PEEP remains at 20. Continues on Nimbex and diprovan drips. Chest x-ray reported patchy bilateral infiltrate with diffuse interstitial pattern, tiny right-sided pleural effusion, received Lasix. Maintained on Rocephin (Moraxella catarrhalis in the sputum) , Covid cocktail with Baricitinib discontinued. Blood sugars elevated. Afebrile, WBC 13.3. Pro-calcitonin 0.34. 08/09/2021 continues on FiO2 65% with PEEP of 20, Nimbex and diprovan drips. Chest x-ray reporting persistent patchy bilateral infiltrate with diffuse interstitial pattern. Received additional Lasix today Blood sugars elevated, improving, A1c 8.4. Afebrile, WBC 14.3. D-dimer 0.77, ferritin increased to 2512, LDH decreased to 606, CRP increased to 21.2. LFTs decreasing with the exception of alkaline phosphatase, increased to 171. ProBNP 453. Receiving tube feeds to call, tolerating well with minimal to no residuals, stooling. 08/10/2021 remains vent dependent, FiO2 60%/+18 of PEEP. Maintained on Nimbex and diprovan drips. Chest x-ray noted, unchanged. Currently afebrile, T-max 99.1, WBC trending down, 12.7. BUN 24, and 0.74. Repeat pro-calcitonin 0.31. Additional Levemir added to med regimen yesterday, Blood sugars controlled. Received Lasix IV push yesterday again, diuresed well with 24-hour I&O reflecting a negative fluid balance. Sodium within normal limits, 142. 08/11/2021 yesterday patient of placed on Nimbex holiday, during the night unable to tolerate became asynchronous with the ventNimbex resumed. Diprovan drip continues. Maintained on FiO2 65% with PEEP decreased to 17. Maintained on Rocephin ,Covid cocktail. Chest x-ray reporting stable diffuse bilateral infiltrate. Inflammatory markers decreasing.Tolerating tube feeds minimal to no residual. Levemir increased yesterday with blood sugars controlled. Afebrile. 08/12/2021 patient was given another paralytic holiday yesterday and continues off of Nimbex. During the night, difficulty maintaining O2 sats, cuff leak discovered, required higher FiO2. Maintained on diprovan. Currently FIO2 90%, PEEP of 16. Chest x-ray reporting bilateral moderate pulmonary edema, possibly worsening, antibiotics adjusted, now on cefepime. Maintained on Covid cocktail. Blood sugars controlled. Renal function stable. 08/15/2021 remains vent dependent, FiO2 75%/+16 of PEEP. Maintained on diprovan and fentanyl drips. Currently off paralytics. Sedation holiday attempted yesterday with minimal improvement of mental status, no response to any stimuli reported. Chest x-ray reporting persistent bilateral airspace disease. Continues on cefepime. Tolerating tube feeds at goal, with minimal to no residuals, blood sugars controlled. Inflammatory markers mildly increased. 08/16/2021 remains vent dependent, FiO2 65%/+16 of PEEP. Chest x-ray reporting diffuse interstitial and alveolar infiltrates. Maintained on diprovan and fentanyl drips. Sole Trimmer currently discussing treatment of trach and peg with family. T-max 99.1, WBC 15.7. D-dimer, CRP decreased, LDH increased. 08/17/2021 vent dependent, FiO2 50%/+16 of PEEP. Chest x-ray reporting diffuse interstitial and alveolar infiltrates. Tube feeds and lovenox on hold. Maintained on IV fluid hydration D5/45. Scheduled for trach and peg today. T-max 99.7, WBC 13.5. Creatinine increased up to 1.15. 08/18/2021 Remains vent dependent, FiO2 70+16 of PEEP.Maintained on diprovan, fentanyl. PEG tube attempted yesterday, surgeon unable to pass scope. Patient is scheduled for tracheostomy and potential PEG tube placement today. 08/19/2021 Tracheostomy placed yesterday. Cuff leak present, TV increased. Maintained on 90% FiO2/+16 of PEEP. Chest x-ray reporting bilateral infiltrates.Continues on Nimbex, fentanyl and diprovan. PICC line placed. Tolerating tube feeds via OG of vital AF at goal of 31ml per hour. Sodium normalized, renal function stable. Blood sugars better controlled. 08/20/2021: Patient remains afebrile. She continues to be mechanically ventilated through her tracheostomy tube. Blood pressure stable. She remains on fentanyl, propofol, and cefepime IVs along with the oral tube feeds. Currently patient's on an FiO2 of 75%. PEEP is 16. Labs show WBC count 9.5. Blood gases today show pH 7.46 with PCO2 45 and a PO2 of 54. Glucose over the past 24 hours is been between 1:30 and 117. Chest x-ray she shows correlate for pneumonia and ARDS. 08/21/2021: Patient remains sedated with tracheostomy tube. A PEG tube placement is planned for tomorrow. She is on oral gastric feeding tube at goal at this time. She is afebrile. Vitals are stable. She remains mechanically ventilated. She currently remains on fentanyl and propofol, the doses have been reduced. Staff report she'll open her eyes but is not following commands at this time. She is a Sosa catheter to gravity. There's been no bowel movement. Multiple days. She remains on the COVID-19 cocktail including Decadron, Lovenox, Protonix, vitamin C. She remains on cefepime antibiotics for possible Moraxella pneumonia. 08/29/2021: Patient remains sedated with tracheostomy tube. PEG tube placement done 08/22/2021. She is afebrile. She remains mechanically ventilated. FIO2 is 60%. PEEP 20. She currently remains on Fentanyl and propofol, Staff report she'll open her eyes but is not following commands at this time. She is a Sosa catheter to gravity. . She remains on the COVID-19 cocktail including Decadron, Lovenox, Protonix, vitamin C. she is NOT improving. 08/30/2021:She is afebrile. She remains mechanically ventilated. the patient remains intubated on a mechanical ventilator. Tracheostomy placed on 08/24/2021 .Peg Tube feeds continue. She remains sedated and she is on propofol Fentanyl was turned off yesterday. The patient is currently on no paralytics. FiO2 is currently at 60% with a PEEP of 20. she is on no antibiotics currently. Blood gas that shows a pH of 7.4 with a pCO2 of 50 and pO2 of 75. The white cell count today is at 8.1 with a hemoglobin of 10 and a platelet count of 160. Electrolytes, show the creatinine is 1.29 with a BUN of 65, She was started on diuretics of Lasix 40 mg IV every 12 hours. The patient is currently on Decadron which is running at 6 mg IV every 24 hours. The patient is also on Levemir insulin at a dose of 30 units in the morning and 10 units in the evening along with a slight scale coverage. IV fluids are currently at KVO. Her husand was at bedside and I was able to speak to him as t othe long term acute care registered nurse outlook for Malinda. The fact we have see NO improvement in her overall condition is troubling and a poor prognostic indicator. he is now arare of this and of her poor outcome likelyhood. 08/31/2021::the patient is afebrile. She remains mechanically ventilated. the patient remains intubated on a mechanical ventilator. Tracheostomy placed on 08/24/2021 .Peg Tube feeds continue. She remains sedated and she is on propofol, The patient is currently on no paralytics. FiO2 is currently at 60% with a PEEP of 20. she is on no antibiotics currently. Blood gas that shows a pH of 7.4 with a pCO2 of 54 and pO2 of 68. The white cell count today is at 7.6 with a hemoglobin of 10.3 and a platelet count of 161. Electrolytes, show the creatinine is 1.34 with a BUN of 66, The patient is currently on Decadron which is running at 6 mg IV every 24 hours. The patient is also on Levemir insulin at a dose of 30 units in the morning and 10 units in the evening along with a slight scale coverage. IV fluids are currently at KVO. Her daughter was at bedside and I was able to speak to her about half-way outlook for Malinda. SHe inquireed about [facility]. 09/01/2021:Overnight, the patient had went in asystole and needed chest compress ions and other support to resuscitate her.This morning, the patient is afebrile. She remains mechanically ventilated. the patient remains intubated on a mechanical ventilator. Tracheostomy placed on 08/24/2021 .Peg Tube feeds continue at goal.She is now on we referred to help with hypotension. She remains sedated on propofol, The patient is currently on no paralytics. FiO2 is currently at 60% with a PEEP of 20. she is on no antibiotics currently. Vitals stable. Blood gas that shows a pH of 7.32 with a pCO2 of 66 and pO2 of 69. The white cell count today is at 10.9 with a hemoglobin of 11. and a platelet count of 171. Electrolytes, show the creatinine is 1.27 with a BUN of 69, Sputum culture is positive for staph aureus. The patient is currently on Decadron which is running at 6 mg IV every 24 hours. The patient is also on Levemir insulin at a dose of 30 units in the morning and 10 units in the evening along with a slight scale coverage. IV fluids are currently at KVO. 09/02/2021: Patient remains in intubated. She is now sedated with fentanyl. This is been restarted. She remains on propofol as well. Currently FiO2 is now 65% with a PEEP of 20. She is making no progress. She became agitated And tachycardic requiring the need for fentanyl be restarted. Currently heart rate remains normal, respiratory rate is mechanically ventilated but controlled. Blood pressure stable. ABG showed pH 7.42 with a PCO2 of 55 and a PO2 of 52 today. Chemistries are stable. Glucose remains improved today. CBC is normal W Skala 9.7. Hemoglobin is 10.3 today. Critical care note reviewed for today. Chest x-ray does not show much change. It says "correlate for pneumonia and ARDS, edema" Patient remains on tube feeds. She is on Levemir insulin 10 units daily at bedtime and 30 units every morning. She has copious cocktail ordered, she remains on dexamethasone 6 mg IV push daily. Lovenox 40 mg subcutaneous daily for anticoagulation. The rest of her medications remain the same at this time. 09/03/2021: Patient remains in intubated. She remains on propofol and fentanyl and now norepinephrine. Currently FiO2 is now 65% with a PEEP of 20, which is no change from the past several days. Currently heart rate remains normal, respiratory rate is mechanically ventilated but controlled. Blood pressure stable. I's and O's show a negative balance of 127.3 mL so far today. Indwelling Sosa catheter remains in place, urine straw-colored. ABG showed pH 7.41 with a PCO2 of 57 and a PO2 of 59 today. Chemistries show an increase in her BUN creatinine ratio.. Glucose remains improved today. CBC is normal wbc 9.u. Hemoglobin is 10.3 today. Critical care note reviewed for today. Chest x-ray from yesterday does not show much change. It says "correlate for pneumonia and ARDS, edema" Patient remains on tube feeds. She is on Levemir insulin 10 units daily at bedtime and 30 units every morning. She has covid cocktail ordered, she remains on dexamethasone 6 mg IV push daily. Lovenox 40 mg subcutaneous daily for anticoagulation. The rest of her medications remain the same at this time. September 04, 2021: with family at bedside patient started to become bradycardic. This continued until her heart rate stopped in asystole. She's been made a no code. She had been continued on the ventilator and with your medication's of propofol and fentanyl and norepinephrine. Patient was pronounced By staff in attendance. Plan - Discharge Summary Discharge Rx Participant: Yes New Discharge Prescriptions: No Action Simvastatin [Zocor] 10 mg PO DAILY Levothyroxine Sodium [Synthroid] 100 mcg PO DAILY Losartan [Cozaar] 25 mg PO DAILY metFORMIN HCL 1,000 mg PO BID Discharge Medication List Levothyroxine Sodium [Synthroid] 100 mcg PO DAILY 08/04/21 [History] Losartan [Cozaar] 25 mg PO DAILY 08/04/21 [History] Simvastatin [Zocor] 10 mg PO DAILY 08/04/21 [History] metFORMIN HCL 1,000 mg PO BID 08/04/21 [History] Discharge Disposition: - Preliminary Cause of Preliminary Cause of : Acute respiratory failure due to COVID-19 pneumonia
--- NOTE | 2021-09-07 10:13 | CDI ---
Documentation Clarification Form Date: 09/07/2021 09:53:51 AM From: Liz Dawson CCS, CCDS Admit Date: 08/04/2021 03:17:00 PM Patient Name: Malinda Patel Visit Number: [id number] Discharge Date: 09/04/2021 10:44:00 AM ATTENTION: The Clinical Documentation Specialists (CDI) and [facility] Coding Staff appreciate your assistance in clarifying documentation. Please respond to the clarification below the line at the bottom and electronically sign. The CDI & [facility] Coding staff will review the response and follow-up if needed. Please note: Queries are made part of the Legal Health Record. If you have any questions, please contact the author of this message via ITS. Dr. Tana Solis: Cardiac Arrest is documented beginning with the 09/01 Pulmonary/Critical Care Progress Note and in subsequent notes on 09/02 through 09/04 without a possible cause for the arrest. Please clarify a cause of the patient's Cardiac Arrest if known. History/Risk Factors per the 08/05 History & Physical: DM, Hyperlipidemia, Hypothyroid. Clinical Indicators: Presented to the ED on 08/04 ambulatory with family with SOB, COVID + and difficulty breathing. Also complaining of cough, congestion, dyspnea, generalized weakness and lightheadedness. Tested positive for COVID a week prior with a home COVID test. Has not received a COVID vaccine. Admitted with Pneumonia due to COVID-19 virus, Hypoxia and Hyperglycemia. On 09/04 the patient became bradycardic, went into asystole, was made a No Code and . 08/04 VS: T 98.7, P 82, R 22 - 32 (sob, labored, cough), BP 113/64, PO 66 RA - 79 6Lnc - 86 15L nrb - 87 BiPAP. BMI: 35.5. Treatment 08/04: IV Decadron, IV Na Cl 1,000 mls @ 999 mls/hr q1H, Insulin sq, IV Na Cl 1,000 mls @ 20 mls/hr q24H, po Vit C Daily, po Vit D3 Daily, IV Decadron 6 mg daily, Lovenox 40 mg sq Daily, po Orazinc Daily, O2 6Lnc - 15L nrb - 15L High Flow. 08/05: po Baricitinib Daily, [id number]%, Intubated, 100% vent, (PO 84%). 08/06: Triple Lumen Catheter, Arterial Line, IV Na Cl 1,000 mls @ 999 mls/hr q1H 09/01: IV Lasix 40 mg x1, IV Solumedrol 125 mg x1, IV Levophed 254 mls @ 19.088 mls/hr q13H 09/04: Patient , PCD: Acute respiratory failure due to COVID 19 Pneumonia. Please clarify the cause of the patient's cardiac arrest if known: [ x ] Cardiac Arrest due to Cardiac Condition, please specify: [ ] Cardiac Arrest due to Respiratory Condition, please specify: [ ] Cardiac Arrest due to other condition, please specify: [ ] Cardiac Arrest due to unknown cause or condition (Template Last Revised: November 2020) MTDD
== END 2021-09-04 10:44 | disposition expired | DRG 4 ==
LOC: EC 12:03 → 2SICU 15:17
PROVIDERS: ADMIT Family Medicine; ATTEND Family Medicine
PROC: 3E043XZ Introduction of Vasopressor into Central Vein, Percutaneous Approach (ICD-10-PCS; 2021-08-02)
PROC: 5A0935A Assistance with Respiratory Ventilation, Less than 24 Consecutive Hours, High Flow/Velocity Cannula (ICD-10-PCS; 2021-08-04)
PROC: 5A09457 Assistance with Respiratory Ventilation, 24-96 Consecutive Hours, Continuous Positive Airway Pressure (ICD-10-PCS; 2021-08-04)
PROC: 0D9670Z Drainage of Stomach with Drainage Device, Via Natural or Artificial Opening (ICD-10-PCS; 2021-08-05)
PROC: 0BH17EZ Insertion of Endotracheal Airway into Trachea, Via Natural or Artificial Opening (ICD-10-PCS; 2021-08-05)
PROC: 5A1955Z Respiratory Ventilation, Greater than 96 Consecutive Hours (ICD-10-PCS; 2021-08-05)
PROC: XW0DXM6 Introduction of Baricitinib into Mouth and Pharynx, External Approach, New Technology Group 6 (ICD-10-PCS; 2021-08-05)
PROC: 02HV33Z Insertion of Infusion Device into Superior Vena Cava, Percutaneous Approach (ICD-10-PCS; 2021-08-06)
PROC: 4A133J1 Monitoring of Arterial Pulse, Peripheral, Percutaneous Approach (ICD-10-PCS; 2021-08-06)
PROC: 03HY32Z Insertion of Monitoring Device into Upper Artery, Percutaneous Approach (ICD-10-PCS; 2021-08-06)
PROC: 4A133B1 Monitoring of Arterial Pressure, Peripheral, Percutaneous Approach (ICD-10-PCS; 2021-08-06)
PROC: 3E0G76Z Introduction of Nutritional Substance into Upper GI, Via Natural or Artificial Opening (ICD-10-PCS; 2021-08-06)
PROC: 4A133J1 Monitoring of Arterial Pulse, Peripheral, Percutaneous Approach (ICD-10-PCS; 2021-08-12)
PROC: 4A133B1 Monitoring of Arterial Pressure, Peripheral, Percutaneous Approach (ICD-10-PCS; 2021-08-12)
PROC: 03HY32Z Insertion of Monitoring Device into Upper Artery, Percutaneous Approach (ICD-10-PCS; 2021-08-12)
PROC: 0CJY8ZZ Inspection of Mouth and Throat, Via Natural or Artificial Opening Endoscopic (ICD-10-PCS; 2021-08-12)
PROC: 0B110F4 Bypass Trachea to Cutaneous with Tracheostomy Device, Open Approach (ICD-10-PCS; principal; 2021-08-18 09:55)
PROC: 02HV33Z Insertion of Infusion Device into Superior Vena Cava, Percutaneous Approach (ICD-10-PCS; 2021-08-19)
PROC: 0DH63UZ Insertion of Feeding Device into Stomach, Percutaneous Approach (ICD-10-PCS; 2021-08-22)
PROC: 3E0G76Z Introduction of Nutritional Substance into Upper GI, Via Natural or Artificial Opening (ICD-10-PCS; 2021-08-22)
DX: U07.1 COVID-19 (principal); J12.82 Pneumonia due to coronavirus disease 2019; J80 Acute respiratory distress syndrome; E43 Unspecified severe protein-calorie malnutrition; G93.41 Metabolic encephalopathy; J15.6 Pneumonia due to other Gram-negative bacteria; G62.81 Critical illness polyneuropathy; G93.1 Anoxic brain damage, not elsewhere classified; J81.1 Chronic pulmonary edema; E87.1 Hypo-osmolality and hyponatremia; J93.82 Other air leak; I95.9 Hypotension, unspecified; E11.65 Type 2 diabetes mellitus with hyperglycemia; E66.01 Morbid (severe) obesity due to excess calories; Z66 Do not resuscitate; Z51.5 Encounter for palliative care; I10 Essential (primary) hypertension; I46.2 Cardiac arrest due to underlying cardiac condition; E78.2 Mixed hyperlipidemia; E03.9 Hypothyroidism, unspecified; Z68.37 Body mass index [BMI] 37.0-37.9, adult; Z79.890 Hormone replacement therapy; Z79.899 Other long term (current) drug therapy; Z90.710 Acquired absence of both cervix and uterus; Z87.42 Personal history of other diseases of the female genital tract; Z87.39 Personal history of other diseases of the musculoskeletal system and connective tissue; Z71.3 Dietary counseling and surveillance; Z98.890 Other specified postprocedural states; Z88.6 Allergy status to analgesic agent; Z88.5 Allergy status to narcotic agent; Z88.0 Allergy status to penicillin; Z88.8 Allergy status to other drugs, medicaments and biological substances; Z80.9 Family history of malignant neoplasm, unspecified
CPT/HCPCS: 36415; 36573; 36600; 43235; 43246; 71045; 80048; 80053; 81001; 82728; 82805; 83036; 83605; 83615; 83735; 83880; 84145; 84439; 84443; 84478; 84484; 85025; 85027; 85379; 85384; 85610; 85730; 86140; 87040; 87070; 87077; 87186; 87205; 87635; 93005; 93970; 94002; 94003; 94640; 94660; 99291